=== PATIENT | female | born 1950 | race Caucasian/White ===

== ENCOUNTER 2016-12-05 10:38 | Emergency (ER) | payer OTHER ==
[~2016-12-05] VITALS: Ht 157.5 cm; Wt 80.3 kg
[~2016-12-05 10:38] MED LIST: ACET-1256 PO; ALBU1AER9 INH; ASPI325T45 PO; CARB25TA14 PO; CTP/1 PO; IPRA1AER2 INH; KLN5X PO; LAMO200T38 PO; LISI-725 PO; NRN400 PO; OMEP20TA40 PO; TRAZ100T29 PO; VENL37.593 PO; VENL75CA73 PO; ZOLP5TAB6 PO
[2016-12-05 10:54] VITALS: Ht 157.5 cm; Wt 80.3 kg
[2016-12-05 10:55] VITALS: O2SAT 95
[2016-12-05] MEDS ORDERED: SODIUM CHLORIDE 0.9% 1000ML 1,000 ML IV STA (11:01)
[2016-12-05] MEDS ORDERED: NICO14DI31 TD (11:12)
[2016-12-05] MEDS ORDERED: VENL150C PO (11:12)
[2016-12-05] MEDS ORDERED: LAMO150T32 PO (11:12)
[2016-12-05] MEDS ORDERED: CARB25TA16 PO (11:12)
[2016-12-05] MEDS ORDERED: POTA20TA16 PO (11:12)
[2016-12-05] MEDS ORDERED: ONDA4TAB46 PO (11:12)
[2016-12-05] MEDS ORDERED: LISI40TA PO (11:12)
[2016-12-05] MEDS ORDERED: CLON-460 PO (11:12)
[2016-12-05] MEDS ORDERED: HYDR25TA4 PO (11:12)
[2016-12-05] MEDS ORDERED: PRAV20TA PO (11:12)
[2016-12-05] MEDS ORDERED: TRAZ1TAB52 PO (11:12)
[2016-12-05 11:26] LABS: BASO % 0.2 %; BASO ABS # 0.01 K/uL (0-0.2); COMPLETE YES; EOS % 0.9 %; HEMATOCRIT 40.1 % (37-47); LYMPH % 30.7 %; LYMPH ABS # 1.74 K/uL (1.2-3.4); MEAN CELL VOLUME 93.9 fL (80-100); MEAN CORPUSCULAR HEMOGLOBIN 30.4 pg (25-34); MEAN CORPUSCULAR HGB CONC 32.4 g/dl (32-36); MONO % 6.2 %; PLATELET COUNT 246 K/uL (130-400); RED BLOOD COUNT 4.27 M/uL (4.2-5.4); WHITE BLOOD COUNT 5.66 K/uL (4.8-10.8)
--- NOTE | 2016-12-05 11:35 | EMERGENCY ROOM VISIT NOTE ---
History Report prepared by Freddie: Shena Torrez Under the Supervision of: Dr. Kelly Kerr M.D. First contact with patient: 11:01 Chief Complaint: OVERDOSE (INTENTIONAL) Stated Complaint: MENTAL HEALTH/LETHARGIC History of Present Illness The patient is a 65 year old female who presents to the Emergency Room with complaints of an intentional overdose that occurred just prior to arrival this morning. The patient states that she just found out today that she is being charged with attempted murder of her . She states that she has a history of short term memory and states that she didn't realize that her was in the car. The patient states that she was just trying to kill herself. 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 The patient states that her sister was very combative over the years, but she still didn't want to place her sister in a half-way. The patient states that today she took rubbing alcohol, aspirin, and tazlina juice around 0800. She also took a dull butter knife to her bilateral wrists and neck. The patient denies any vomiting today. She states that she has a current diagnosis of breast cancer, but states that she does not wish to have any treatments. Source of History: patient Onset: prior to arrival Position: other (global) Quality: other (intentional overdose) Associated Symptoms: No vomiting Review of Systems See HPI for pertinent positives & negatives. A total of 10 systems reviewed and were otherwise negative. 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 (11) HTN (hypertension) (12) Hyperlipidemia (13) Hypertensive urgency (14) Lumbago (15) Mixed anxiety and depressive disorder (16) OSTEOPOROSIS NEC (17) Parkinson disease (18) RESTLESS LEGS SYNDROME (19) Severe uncontrolled hypertension (20) Sleep apnea (21) Spinal stenosis Surgical Problems: (1) History of excision of vulvar cancer (2) History of spinal surgery (3) S p biopsy removal of spinal cord lesion (4) S/P excision of lipoma (5) Status post right knee replacement Family History Cerebral hemorrhage SISTER Heart disease FATHER ([place]) Hypertension MOTHER SISTER Kidney disease Social History Smoking Status: Current Every Day Smoker Alcohol Use: none Drug Use: none Marital Status: Housing Status: lives with family Occupation Status: disabled Current/Historical Medications Scheduled Carbidopa/Levodopa (Sinemet Cr 25MG/100MG), 1 TAB PO TID Clonazepam (Clonazepam), 0.5 MG PO BID Clonidine HCl (Clonidine HCl), 0.3 MG PO TID Gabapentin (Gabapentin), 400 MG PO TID Hydrochlorothiazide (Hctz), 25 MG PO QAM Lamotrigine (Lamictal), 150 MG PO BID Lisinopril (Zestril), 40 MG PO DAILY Nicotine (Nicoderm Cq 14MG Patch), 1 PATCH TD DAILY Potassium Ext Rel (Klor-Con), 20 MEQ PO DAILY Pravastatin (Pravachol ), 20 MG PO QPM Trazodone Hcl (Desyrel), 150 MG PO HS Venlafaxine Hcl (Effexor Xr), 150 MG PO QAM Zolpidem Tartrate (Zolpidem Tartrate), 5 MG PO HS Scheduled PRN Albuterol Sulfate (Proair Hfa), 2 PUFF INH QID PRN for SOB/Wheezing Omeprazole (Cvs Omeprazole), 20 MG PO DAILY PRN for nausea Ondansetron Hcl (Zofran), 4 MG PO TID PRN for Nausea Allergies Coded Allergies: Nicotine (Verified Allergy, Intermediate, skin irritation, 08/07/16) BEE STING (Verified Allergy, Unknown, "I PASS OUT.", 08/07/16) Bupropion (Verified Allergy, Unknown, unknown, 08/07/16) Codeine (Verified Allergy, Unknown, unknown - TOLERATES PERCOCET, 08/07/16) Sulfa Antibiotics (Verified Allergy, Unknown, ., 08/07/16) Physical Exam Vital Signs Date Time Temp Pulse Resp B/P Pulse Ox O2 Delivery O2 Flow Rate FiO2 12/05/16 21:07 89 20 147/74 96 Room Air 12/05/16 19:18 98 20 167/73 97 Room Air 12/05/16 17:44 37.0 101 18 160/87 97 Room Air 12/05/16 16:32 85 18 118/84 99 Room Air 12/05/16 16:13 69 18 97 12/05/16 15:59 102/66 12/05/16 15:43 80 17 94 12/05/16 15:13 88 25 94 12/05/16 14:58 143/76 12/05/16 14:47 127/75 12/05/16 14:43 83 24 100 12/05/16 14:22 89 21 133/74 100 Nasal Cannula 2.0 12/05/16 14:16 133/74 12/05/16 14:13 88 24 100 12/05/16 13:59 136/89 12/05/16 13:43 90 24 100 12/05/16 13:13 84 23 100 12/05/16 13:08 79 24 100 12/05/16 13:00 79 12/05/16 12:59 135/84 12/05/16 12:38 80 21 100 12/05/16 12:08 82 18 99 12/05/16 11:59 122/94 12/05/16 11:53 81 20 103/73 100 Nasal Cannula 2.0 12/05/16 11:52 103/73 12/05/16 11:38 86 17 100 12/05/16 11:08 52 25 98 12/05/16 10:55 95 Nasal Cannula 2.0 12/05/16 10:54 36.7 84 20 129/88 89 Room Air 12/05/16 10:54 92 Nasal Cannula 2.0 12/05/16 10:51 85 12/05/16 10:43 129/76 Physical Exam Vital signs reviewed. General: Disheveled, generally well-appearing female, in no significant distress. Responds to verbal stimuli without difficulty. HEENT: No scleral icterus, PERRLA, neck supple. Atraumatic. Cardiovascular: Regular rate and rhythm, no extra sounds. Pulmonary: Clear to auscultation bilaterally, normal work of breathing. Abdomen: Soft, nontender, nondistended, positive bowel sounds. Musculoskeletal: Atraumatic, no peripheral edema. Neurologic: Patient awake alert and oriented x 3, full strength in all 4 extremities. Cranial nerves 2 through 12 grossly intact. Skin: Superficial lacerations to bilateral wrist and anterior neck. Warm, dry, no rash Psych: Positive suicidal ideation, negative homicidal ideation. Medical Decision & Procedures Laboratory Results 12/05/16 11:16 Red Blood Count 4.27, Mean Corpuscular Volume 93.9, Mean Corpuscular Hemoglobin 30.4, Mean Corpuscular Hemoglobin Concent 32.4, Mean Platelet Volume 9.0, Neutrophils (%) (Auto) 62.0, Lymphocytes (%) (Auto) 30.7, Monocytes (%) (Auto) 6.2, Eosinophils (%) (Auto) 0.9, Basophils (%) (Auto) 0.2, Neutrophils # (Auto) 3.51, Lymphocytes # (Auto) 1.74, Monocytes # (Auto) 0.35, Eosinophils # (Auto) 0.05, Basophils # (Auto) 0.01 12/05/16 11:16 Test 12/05/16 00:00 12/05/16 11:16 12/05/16 12:00 12/05/16 12:02 Urine Color YELLOW Urine Appearance CLEAR (CLEAR) Urine pH 7.5 (4.5-7.5) Urine Specific [place] 1.004 (1.000-1.030) Urine Protein NEG (NEG) Urine Glucose (UA) NEG (NEG) Urine Ketones NEG (NEG) Urine Occult Blood NEG (NEG) Urine Nitrite NEG (NEG) Urine Bilirubin NEG (NEG) Urine Urobilinogen NEG (NEG) Urine Leukocyte Esterase NEG (NEG) Urine WBC (Auto) 0 /hpf (0-5) Urine RBC (Auto) 0-4 /hpf (0-4) Urine Hyaline Casts (Auto) 1-5 /lpf (0-5) Urine Epithelial Cells (Auto) 0-5 /lpf (0-5) Urine Bacteria (Auto) NEG (NEG) White Blood Count 5.66 K/uL (4.8-10.8) Red Blood Count 4.27 M/uL (4.2-5.4) Hemoglobin 13.0 g/dL (12.0-16.0) Hematocrit 40.1 % (37-47) Mean Corpuscular Volume 93.9 fL (80-100) Mean Corpuscular Hemoglobin 30.4 pg (25-34) Mean Corpuscular Hemoglobin Concent 32.4 g/dl (32-36) Platelet Count 246 K/uL (130-400) Mean Platelet Volume 9.0 fL (7.4-10.4) Neutrophils (%) (Auto) 62.0 % Lymphocytes (%) (Auto) 30.7 % Monocytes (%) (Auto) 6.2 % Eosinophils (%) (Auto) 0.9 % Basophils (%) (Auto) 0.2 % Neutrophils # (Auto) 3.51 K/uL (1.4-6.5) Lymphocytes # (Auto) 1.74 K/uL (1.2-3.4) Monocytes # (Auto) 0.35 K/uL (0.11-0.59) Eosinophils # (Auto) 0.05 K/uL (0-0.5) Basophils # (Auto) 0.01 K/uL (0-0.2) RDW Standard Deviation 49.6 fL (36.4-46.3) RDW Coefficient of Variation 14.5 % (11.5-14.5) Immature Granulocyte % (Auto) 0.0 % Immature Granulocyte # (Auto) 0.00 K/uL (0.00-0.02) Anion Gap 6.0 mmol/L (3-11) Est Creatinine Clear Calc Drug Dose 37.7 ml/min Estimated GFR () 42.5 Estimated GFR (Non- 36.7 BUN/Creatinine Ratio 6.9 (10-20) Calcium Level 8.8 mg/dl (8.5-10.1) Total Bilirubin 0.2 mg/dl (0.2-1) Direct Bilirubin < 0.1 mg/dl (0-0.2) Aspartate Amino Transf (AST/SGOT) 4 U/L (15-37) Alanine Aminotransferase (ALT/SGPT) 9 U/L (12-78) Alkaline Phosphatase 63 U/L (45-117) Total Protein 7.0 gm/dl (6.4-8.2) Albumin 4.1 gm/dl (3.4-5.0) Salicylates Level 2.0 mg/dl (2.8-20) Acetaminophen Level < 2 ug/ml (10-30) Ethyl Alcohol mg/dL < 3.0 mg/dl (0-3) Urine Osmolality 267 mOms/kg (500-800) Urine Opiates Screen NEG (NEG) Urine Methadone, Qualitative NEG (NEG) Urine Barbiturates NEG (NEG) Urine Phencyclidine (PCP) Level NEG (NEG) Ur Amphetamine/Methamphetamine NEG (NEG) MDMA (Ecstasy) Screen NEG (NEG) Urine Benzodiazepines Screen NEG (NEG) Urine Cocaine Metabolite NEG (NEG) Urine Marijuana (THC) NEG (NEG) Methyl Alcohol Level NEGATIVE <5 MG/DL (NONE Osmolality 324 mOsm/kg (280-300) Test 12/05/16 12:52 12/05/16 15:55 Venous Blood pH 7.39 (7.36-7.41) Venous Blood Partial Pressure CO2 54 mmHg (38.0-50.0) Venous Blood Partial Pressure O2 30 mmHg Venous Blood HCO3 31 mmol/L Venous Blood Oxygen Saturation < 60.0 % Venous Blood Base Excess 5.0 mmol/L Arterial Blood pH 7.43 (7.35-7.45) Arterial Blood Partial Pressure CO2 46 mmHg (35-46) Arterial Blood Partial Pressure O2 64 mmHg (80-95) Arterial Blood HCO3 30 mmol/L (19-24) Arterial Blood Oxygen Saturation 92.3 % (90-95) Arterial Blood Base Excess 4.6 mEq/L (-9-1.8) Arterial Blood Gas Delivery ROOM AIR Miguelito Test POS (POS) Laboratory results per my review. Medications Administered Medications (Trade) Dose Ordered Sig/Jagruti Route Start Time Stop Time Status Last Admin Dose Admin Sodium Chloride (Nss 1000ml) 1,000 ml @ 125 mls/hr Q8H STAT IV 12/05/16 11:01 12/05/16 19:00 DC 12/05/16 11:22 125 MLS/HR Diphtheria/ Pertussis/Tetanus Vacc (Adacel Inj) 0.5 ml ONCE ONCE IM. 12/05/16 14:15 12/05/16 14:17 DC 12/05/16 14:49 0.5 ML Lorazepam (Ativan Tab) 1 mg NOW STAT PO 12/05/16 18:38 12/05/16 18:39 DC 12/05/16 18:38 1 MG Lorazepam (Ativan Tab) 1 mg NOW STAT SL 12/05/16 21:22 12/05/16 21:23 DC 12/05/16 21:26 1 MG ECG Indication: toxicologic Rate (beats per minute): 84 Rhythm: sinus rhythm Findings: nonspecific-ST abn (Lateral), PVC (frequent), other (Likely previous anteiror infarct) ED Course 1101: Ordered Sodium Chloride 1000 ml @ 125 mls/hr IV. 1122: Past medical records reviewed. The patient was evaluated in room A3. A complete history and physical examination was performed. 1415: Ordered Adacel Inj 0.5 ml IM. 1423: I discussed the patients case with Poison Control. 1542: I reevaluated the patient and she is resting comfortably. I believe she can be clear for further evaluation. 1635: I reevaluated the patient and she is going to be evaluated by mental health. 1800: The patient was signed out to Dr. Palacios at change of shift. Pending [facility] evaluation. Medical Decision Differential diagnosis: Etiologies such as mood disorder, infection, hypoglycemia, electrolyte abnormalities, cardiac sources, intracerebral event, toxicologic, neurologic, as well as others were entertained. This pt was evaluated and appeared to be in no distress. Pt was observed in the ED for several hours. Poison control was contacted. I did speak with the speech therapy teacher. She was medically cleared. Pt was awake and speaking clearly. SHe became very anxious and tearful. Pt was medicated with oral ativan. Pt was referred to the [facility] and accepted for inpt management. Secure transport arrangements were made. Pt was signed out to Dr Palacios at the change of shift pending transfer. Consults Time Called: 1413 Consulting Physician: Poison Control Returned Call: [phone] I discussed the patients case with Poison Control. Impression Primary Impression: Suicidal ideation Additional Impressions: Self-mutilation Isopropyl alcohol ingestion Scribe Attestation The scribe's documentation has been prepared under my direction and personally reviewed by me in its entirety. I confirm that the note above accurately reflects all work, treatment, procedures, and medical decision making performed by me. Departure Information Dispostion Still a Patient Referrals No Doctor, Assigned (PCP) Problem Qualifiers
[2016-12-05 11:49] LABS: BLOOD UREA NITROGEN 10 mg/dl (7-18); GLUCOSE 103 mg/dl (70-99)
[2016-12-05 11:50] LABS: ALT/SGPT 9 U/L (12-78); AST/SGOT 4 U/L (15-37); BUN/CREATININE RATIO 6.9 (10-20); CALCIUM 8.8 mg/dl (8.5-10.1); CARBON DIOXIDE 30 mmol/L (21-32); CHLORIDE 104 mmol/L (98-107); POTASSIUM 3.7 mmol/L (3.5-5.1); SODIUM 140 mmol/L (136-145)
[2016-12-05 11:51] LABS: ACETAMINOPHEN < 2 ug/ml (10-30)
[2016-12-05 11:52] LABS: ALKALINE PHOSPHATASE 63 U/L (45-117)
[2016-12-05 12:43] LABS: URINE APPEARANCE CLEAR (CLEAR); URINE BILIRUBIN NEG (NEG); URINE COLOR YELLOW; URINE EPITHELIAL CELL AUTO 0-5 /lpf (0-5); URINE NITRITE NEG (NEG); URINE PH 7.5 (4.5-7.5); URINE SPECIFIC GRAVITY 1.004 (1.000-1.030); UROBILINOGEN NEG (NEG); ZZURINE CULT IF INDIC CATH NO
[2016-12-05 12:45] LABS: MANUAL MICROSCOPIC REQUIRED? NO; REVIEW REQ? NO
[2016-12-05 13:09] LABS: BENZODIAZEPINE, URINE NEG (NEG); COCAINE,URINE NEG (NEG); PHENCYCLIDINE, URINE NEG (NEG)
[2016-12-05 13:15] LABS: VEN BLD GAS O2 SATURATION < 60.0 %; VENOUS BLOOD GAS PCO2 54 mmHg (38.0-50.0); VENOUS BLOOD GAS PO2 30 mmHg
[2016-12-05] MEDS ORDERED: DIPHTHERIA/TETANUS/PERTUSSIS 0.5 ML SYR/VIAL IM. ONE (14:15)
[2016-12-05 16:09] LABS: ARTERIAL BLD GAS O2 SATURATION 92.3 % (90-95); ARTERIAL BLOOD GAS HCO3 30 mmol/L (19-24); ARTERIAL BLOOD GAS PO2 64 mmHg (80-95); ARTERIAL BLOOD GAS pH 7.43 (7.35-7.45)
[2016-12-05 16:10] LABS: ALLEN TEST POS (POS); ARTERIAL BLOOD GAS BASE EXCESS 4.6 mEq/L (-9-1.8); O2 ADMINISTRATION ROOM AIR
[2016-12-05 17:44] VITALS: TEMP 37
[2016-12-05] MEDS ORDERED: LORAZEPAM 1 MG TAB PO STA (18:38)
[2016-12-05] MEDS ORDERED: NICOTINE 14 MG/24 HR TDSY ONE (18:57)
[2016-12-05 21:07] VITALS: BP 147/74; PULSE 89; O2SAT 96
[2016-12-05] MEDS ORDERED: LORAZEPAM 1 MG TAB SL STA (21:22)
--- NOTE | 2016-12-05 21:24 | EMERGENCY ROOM VISIT NOTE ---
ED Visit Note The patient was taken in signout from Dr. Kerr at the change of shift. She was accepted for psychiatric transfer. Prior to transfer the patient was very anxious. She was given 1 mg sublingual Ativan.
[2016-12-06] MEDS ORDERED: NICOTINE 14 MG/24 HR TDSY TD SCH ×2 (09:00)
== END 2016-12-05 21:14 ==
LOC: EDBD 10:38 → C.EDA 10:48
DX: T39.012A Poisoning by aspirin, intentional self-harm, initial encounter (principal); T51.92XA Toxic effect of unspecified alcohol, intentional self-harm, initial encounter; S60.911A Unspecified superficial injury of right wrist, initial encounter; S60.912A Unspecified superficial injury of left wrist, initial encounter; X78.1XXA Intentional self-harm by knife, initial encounter; F41.9 Anxiety disorder, unspecified; Z23 Encounter for immunization; R00.0 Tachycardia, unspecified; I10 Essential (primary) hypertension; E78.5 Hyperlipidemia, unspecified; J44.9 Chronic obstructive pulmonary disease, unspecified; K21.9 Gastro-esophageal reflux disease without esophagitis; G20 Parkinson's disease; M81.0 Age-related osteoporosis without current pathological fracture; G47.30 Sleep apnea, unspecified; F32.9 Major depressive disorder, single episode, unspecified; G25.81 Restless legs syndrome; J43.9 Emphysema, unspecified; F17.200 Nicotine dependence, unspecified, uncomplicated; Z96.651 Presence of right artificial knee joint; Z98.890 Other specified postprocedural states; Z79.899 Other long term (current) drug therapy; Z88.2 Allergy status to sulfonamides; Z88.5 Allergy status to narcotic agent; Z88.8 Allergy status to other drugs, medicaments and biological substances; Z91.030 Bee allergy status; Z82.49 Family history of ischemic heart disease and other diseases of the circulatory system; Z84.1 Family history of disorders of kidney and ureter

== ENCOUNTER 2017-06-01 15:49 | Emergency (ER) | payer OTHER ==
[~2017-06-01] VITALS: Ht 170.2 cm; Wt 70.0 kg
[~2017-06-01 15:49] MED LIST changes: -ACET-1256 PO; -ASPI325T45 PO; -CARB25TA14 PO; +CARB25TA16 PO; +CLON-460 PO; -CTP/1 PO; +HYDR25TA4 PO; -IPRA1AER2 INH; +LAMO150T32 PO; -LAMO200T38 PO; -LISI-725 PO; +LISI40TA PO; +NICO14DI31 TD; +ONDA4TAB46 PO; +POTA20TA16 PO; +PRAV20TA PO; -TRAZ100T29 PO; +TRAZ1TAB52 PO; +VENL150C PO; -VENL37.593 PO; -VENL75CA73 PO
[2017-06-01 15:59] VITALS: TEMP 36.9; Ht 170.2 cm; Wt 70.0 kg
[2017-06-01] MEDS ORDERED: SODIUM CHLORIDE 0.9% 1000ML 250 ML IV STA (16:02)
[2017-06-01] MEDS ORDERED: SODIUM CHLORIDE 0.9% 1000ML 1,000 ML IV STA (16:02)
[2017-06-01] MEDS ORDERED: MoRPHine SULFATE 4 MG/ML 1 ML CARP IV STA (16:02)
[2017-06-01] MEDS ORDERED: ONDANSETRON INJ 2 MG/ML 2 ML VIAL IV STA (16:02)
--- NOTE | 2017-06-01 16:05 | EMERGENCY ROOM VISIT NOTE ---
History Report prepared by Freddie: Aldo Singh Under the Supervision of: Dr. Subhash Finney M.D. First contact with patient: 15:56 Chief Complaint: FALL Stated Complaint: FALL, HIP& JAW PAIN, LACERATION TO KNEE & CHIN History of Present Illness The patient is a 66 year old female who presents to the Emergency Room with complaints of a fall that happened RECORDIST CHIEF. She was standing on when she bent down and lost her balance. She fell off of the porch and landed on the ground. The porch was about 5 steps high. She is experiencing jaw pain and hip pain. She denies any chest pain, shortness of breath, or abdominal pain. She has a past medical history of previous brain aneurisms. Before the fall, she notes that she had drank 2 shots of vodka. Source of History: patient Onset: RECORDIST CHIEF Position: other (Global) Symptom Intensity: moderate Quality: other (Fall) Timing: constant Modifying Factors (Worsening): movement Associated Symptoms: No chest pain, No SOB, No abdominal pain Note: She has hip pain and jaw pain. Review of Systems See HPI for pertinent positives & negatives. A total of 10 systems reviewed and were otherwise negative. 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 Nurse's notes were reviewed and I agree with. Family History Cerebral hemorrhage SISTER Heart disease FATHER ([place]) Hypertension MOTHER SISTER Kidney disease Social History Smoking Status: Current Every Day Smoker Alcohol Use: none Drug Use: none Marital Status: Housing Status: lives with family Occupation Status: disabled Current/Historical Medications Scheduled Amlodipine (Norvasc), 5 MG PO DAILY Atorvastatin (Lipitor), 10 MG PO DAILY Clonazepam (Clonazepam), 1 MG PO DAILY Clonidine HCl (Clonidine HCl), 0.3 MG PO BID Escitalopram Oxalate (Lexapro), 10 MG PO DAILY Gabapentin (Gabapentin), 400 MG PO TID Hydrochlorothiazide (Hctz), 25 MG PO QAM Lisinopril (Lisinopril), 20 MG PO BID Omeprazole (Cvs Omeprazole), 20 MG PO DAILY Potassium Ext Rel (Klor-Con), 20 MEQ PO DAILY Trazodone HCl (Trazodone HCl), 100 MG PO BID Allergies Coded Allergies: Nicotine (Verified Allergy, Intermediate, skin irritation, 08/07/16) BEE STING (Verified Allergy, Unknown, "I PASS OUT.", 08/07/16) Bupropion (Verified Allergy, Unknown, unknown, 08/07/16) Codeine (Verified Allergy, Unknown, unknown - TOLERATES PERCOCET, 08/07/16) Sulfa Antibiotics (Verified Allergy, Unknown, ., 08/07/16) Physical Exam Vital Signs Date Time Temp Pulse Resp B/P (MAP) Pulse Ox O2 Delivery O2 Flow Rate FiO2 06/01/17 19:14 51 17 06/01/17 18:44 53 25 110/59 06/01/17 16:29 95 Nasal Cannula 2.0 06/01/17 16:24 57 06/01/17 16:00 94 Room Air 06/01/17 15:59 36.9 57 24 114/67 94 Room Air Physical Exam General: Mildly intoxicated older female, breathing comfortably on room air. Normal speech. Wearing a cervical collar. Answers questions appropriately. HEENT: Normal cephalic. Laceration to the chin. Pupils are equal round and reactive to light. Extraocular movements are intact. Oropharynx is pink with moist mucous membranes. No swelling of the mouth lips or tongue. Neck: Supple with a midline trachea. No meningeal signs or stiffness, no JVD or bruits. No Stridor. Chest: Clear to auscultation bilaterally. No wheezes or rhonchi. No increased work of breathing. Heart: regular rate and rhythm. Abdomen: Soft nontender, nondistended without rebound guarding or rigidity. Extremities: No cyanosis clubbing or edema. No calf tenderness or assymetry. Laceration below the left knee. Spine/Back. Non tender to palpation. No CVA tenderness Skin: Good turgor without rashes. Neurologic exam: Cranial nerves two through 12 are intact. Motor and sensation are intact and symmetrical throughout. GCS 15. Medical Decision & Procedures ER Provider Diagnostic Interpretation: Radiology results as stated below per my review and radiologist interpretation: ADDENDUM Findings: Slightly impacted/angled fracture right mandibular condyle. Electronically signed by: Dwayne Becker M.D. 06/01/2017 4:47 PM Dictated Date/Time: 06/01/2017 4:46 PM ORIGINAL REPORT FACIAL BONES-MXILLOFAC WITHOUT CT DOSE: 1043.60 mGy.cm HISTORY: Trauma eval for trauma TECHNIQUE: Multiaxial CT images of the maxillofacial region were performed and reformatted in the coronal plane without the use of contrast. COMPARISON: None. FINDINGS: Slightly impacted/ankle fracture right mandibular condyle. No evidence of dislocation. All remaining osseous structures are unremarkable. Sinuses show chronic sclerosis of the posterior mastoids of the no additional abnormalities appreciated. Final sinuses are clear. The orbital margins are intact. All remaining structures the mandible and maxilla are unremarkable. IMPRESSION: 1. Fracture right mandibular condyle 2. The Remainder of the study is negative The above report was generated using voice recognition software. It may contain grammatical, syntax or spelling errors. Electronically signed by: Dwayne Becker M.D. 06/01/2017 4:36 PM Dictated Date/Time: 06/01/2017 4:34 PM HEAD WITHOUT CONTRAST (CT) CT DOSE: HISTORY: Trauma eval for trauma TECHNIQUE: Multiaxial CT images of the head were performed without the use of intravenous contrast. Comparison: None. Findings: The paranasal sinuses and mastoid air cells are clear. The calvarium and skull base are intact. The ventricles and sulci are within normal limits. There is no mass, hematoma, midline shift, or acute infarct. Impression: No acute intracranial abnormality. The above report was generated using voice recognition software. It may contain grammatical, syntax or spelling errors. Electronically signed by: Dwayne Becker M.D. 06/01/2017 4:33 PM Dictated Date/Time: 06/01/2017 4:33 PM (CHEST) THORAX WITH CT DOSE: 931.97 mGy.cm HISTORY: Trauma eval for trauma TECHNIQUE: Multiaxial CT images of the chest were performed following the intravenous administration of contrast. COMPARISON: None. FINDINGS: The lungs are clear. The mediastinal vascular structures are within normal limits. No mediastinal or hilar lymphadenopathy. No pleural effusion or pneumothorax. Limited views of the upper abdomen demonstrate a normal liver and spleen. Moderate degenerative change thoracic spine IMPRESSION: No significant abnormality identified within the chest. Moderate degenerative change thoracic spine The above report was generated using voice recognition software. It may contain grammatical, syntax or spelling errors. Electronically signed by: Dwayne Becker M.D. 06/01/2017 4:42 PM Dictated Date/Time: 06/01/2017 4:40 PM CERVICAL SPINE W/O CT DOSE: HISTORY: Trauma eval for trauma TECHNIQUE: Multiaxial CT images of the cervical spine were performed and reformatted in the sagittal and coronal plane without the use of contrast. COMPARISON: None. FINDINGS: No fractures. No subluxation. Prevertebral soft tissues and the C1-C2 interval are intact. No pneumothorax. Moderate degenerative disc change from C5 through C7 IMPRESSION: No fractures within the cervical spine. Moderate degenerative change The above report was generated using voice recognition software. It may contain grammatical, syntax or spelling errors. Electronically signed by: Dwayne Becker M.D. 06/01/2017 4:32 PM Dictated Date/Time: 06/01/2017 4:31 PM ABD/PELVIS IV CONTRAST ONLY CT DOSE: HISTORY: Trauma eval for trauma TECHNIQUE: Multiaxial CT images of the abdomen and pelvis were performed following the use of intravenous contrast. COMPARISON STUDY: 08/07/2016 FINDINGS: Lung bases are clear. Mild fatty infiltration of liver. All major organ systems enhance uniformly. 3 mm nonobstructing right renal cortical calcification. No abnormal perinephric collection. Bowel pattern is considered nonobstructive. Bladder is midline. There is no significant free fluid within the pelvic cul-de-sac. There are postoperative changes of the lumbar spine consistent with laminectomy and fusion there is no evidence for compression deformity. IMPRESSION: No significant abnormality identified within the abdomen or pelvis. The above report was generated using voice recognition software. It may contain grammatical, syntax or spelling errors. Electronically signed by: Dwayne Becker M.D. 06/01/2017 4:45 PM Dictated Date/Time: 06/01/2017 4:42 PM LEFT KNEE 1 OR 2 VIEWS ROUTINE CLINICAL HISTORY: eval for trauma pain COMPARISON: None. DISCUSSION: Moderate degenerative change all major joint compartment. Soft tissue laceration anterior to the knee. No acute bony abnormality. IMPRESSION: Soft tissue laceration. No acute bony abnormality. Moderate degenerative change. The above report was generated using voice recognition software. It may contain grammatical, syntax or spelling errors. Electronically signed by: Dwayne Becker M.D. 06/01/2017 5:32 PM Dictated Date/Time: 06/01/2017 5:31 PM LEFT HAND MIN 3 VIEWS ROUTINE CLINICAL HISTORY: eval for trauma trauma COMPARISON: 08/07/2016 DISCUSSION: Small old avulsion from the base of the first metacarpal. Severe degenerative change first carpometacarpal joint. No well-defined acute bony abnormality. Moderate degenerative change throughout. There is no evidence for soft tissue swelling. IMPRESSION: Considerable degenerative change. No acute bony abnormality. The above report was generated using voice recognition software. It may contain grammatical, syntax or spelling errors. Electronically signed by: Dwayne Becker M.D. 06/01/2017 5:31 PM Dictated Date/Time: 06/01/2017 5:30 PM Laboratory Results 06/01/17 15:50 Red Blood Count 4.21, Mean Corpuscular Volume 91.4, Mean Corpuscular Hemoglobin 31.6, Mean Corpuscular Hemoglobin Concent 34.5, Mean Platelet Volume 9.8, Neutrophils (%) (Auto) 51.6, Lymphocytes (%) (Auto) 41.5, Monocytes (%) (Auto) 5.6, Eosinophils (%) (Auto) 1.0, Basophils (%) (Auto) 0.3, Neutrophils # (Auto) 3.11, Lymphocytes # (Auto) 2.50, Monocytes # (Auto) 0.34, Eosinophils # (Auto) 0.06, Basophils # (Auto) 0.02 06/01/17 15:50 Test 06/01/17 15:50 06/01/17 16:09 06/01/17 16:26 White Blood Count 6.03 K/uL (4.8-10.8) Red Blood Count 4.21 M/uL (4.2-5.4) Hemoglobin 13.3 g/dL (12.0-16.0) Hematocrit 38.5 % (37-47) Mean Corpuscular Volume 91.4 fL (80-100) Mean Corpuscular Hemoglobin 31.6 pg (25-34) Mean Corpuscular Hemoglobin Concent 34.5 g/dl (32-36) Platelet Count 204 K/uL (130-400) Mean Platelet Volume 9.8 fL (7.4-10.4) Neutrophils (%) (Auto) 51.6 % Lymphocytes (%) (Auto) 41.5 % Monocytes (%) (Auto) 5.6 % Eosinophils (%) (Auto) 1.0 % Basophils (%) (Auto) 0.3 % Neutrophils # (Auto) 3.11 K/uL (1.4-6.5) Lymphocytes # (Auto) 2.50 K/uL (1.2-3.4) Monocytes # (Auto) 0.34 K/uL (0.11-0.59) Eosinophils # (Auto) 0.06 K/uL (0-0.5) Basophils # (Auto) 0.02 K/uL (0-0.2) RDW Standard Deviation 46.5 fL (36.4-46.3) RDW Coefficient of Variation 14.1 % (11.5-14.5) Immature Granulocyte % (Auto) 0.0 % Immature Granulocyte # (Auto) 0.00 K/uL (0.00-0.02) Est Creatinine Clear Calc Drug Dose 90.6 ml/min Estimated GFR () 111.0 Estimated GFR (Non- 95.8 BUN/Creatinine Ratio 30.5 (10-20) Calcium Level 8.7 mg/dl (8.5-10.1) Total Bilirubin 0.4 mg/dl (0.2-1) Direct Bilirubin 0.1 mg/dl (0-0.2) Aspartate Amino Transf (AST/SGOT) 9 U/L (15-37) Alanine Aminotransferase (ALT/SGPT) 9 U/L (12-78) Alkaline Phosphatase 64 U/L (45-117) Total Protein 6.5 gm/dl (6.4-8.2) Albumin 3.7 gm/dl (3.4-5.0) Lipase 66 U/L (73-393) Bedside Hemoglobin 13.3 g/dl (12.0-16.0) Bedside Hematocrit 39 % (37-47) Bedside Sodium 139 mEq/L (135-144) Bedside Potassium 3.4 mEq/L (3.3-5.0) Bedside Chloride 100 mEq/L (101-112) Bedside Total CO2 24 mEq/l (24-31) Anion Gap 19.0 mmol/L (16-25) Bedside Blood Urea Nitrogen 19 mg/dl (7-18) Bedside Creatinine 0.8 mg/dl (0.6-1.3) Bedside Glucose (other) 90 mg/dl (70-99) Bedside Ionized Calcium (Ad) 1.14 mmol/l (1.12-1.32) Ethyl Alcohol mg/dL 117.0 mg/dl (0-3) Laboratory studies as stated above per my review. Medications Administered Medications (Trade) Dose Ordered Sig/Jagruti Route Start Time Stop Time Status Last Admin Dose Admin Ondansetron HCl (Zofran Inj) 4 mg NOW STAT IV 06/01/17 16:02 06/01/17 16:03 DC 06/01/17 16:22 4 MG Morphine Sulfate (MoRPHine SULFATE INJ) 4 mg NOW STAT IV 06/01/17 16:02 06/01/17 16:03 DC 06/01/17 16:22 4 MG Sodium Chloride 250 ml @ 999 mls/hr Q16M STAT IV 06/01/17 16:02 06/01/17 16:17 DC 06/01/17 16:02 999 MLS/HR Sodium Chloride 1,000 ml @ 100 mls/hr Q10H STAT IV 06/01/17 16:02 06/02/17 02:01 06/01/17 16:25 100 MLS/HR Cefazolin Sodium (Ancef 1000mg/55 ml D5W) 1,000 mg NOW STAT IV 06/01/17 17:24 06/01/17 17:26 DC 06/01/17 17:50 1,000 MG Diphtheria/ Pertussis/Tetanus Vacc (Adacel Inj) 0.5 ml ONCE ONCE IM. 06/01/17 19:15 06/01/17 19:16 DC 06/01/17 19:21 0.5 ML Morphine Sulfate (MoRPHine SULFATE INJ) 2 mg NOW STAT IV 06/01/17 19:06 06/01/17 19:07 DC 06/01/17 19:20 2 MG ECG Indication: other (Trauma) Rate (beats per minute): 64 Rhythm: normal sinus Findings: no acute ischemic change, other (Poor baseline, poor r wave progression) Comparison ECG Date: 05 Dec 2016 Change: PVCs have resolved. ED Course 1556: Past medical records reviewed. The patient was evaluated in room C10, and a complete history and physical examination were performed. 1602: Ordered Sodium Chloride 1000 ml @ 100 mls/hr IV, Sodium Chloride 250 ml @ 999 mls/hr IV, Morphine Sulfate 4 mg IV, Zofran Inj 4 mg IV 1651: The patient is awake and back from radiology. She is still in pain. I removed the c-collar. 1724: Ordered Cefazolin Sodium 1000 mg IV. She would like to be transferred to [facility] for further management. 1728: I spoke with Dr. Tiago Ceja Hospitalist, at this time. He agrees with the patient's transfer. 1731: I spoke with Dr. Carmina Carrillo at this time. He accepted the patient for further management and care. She will be transferred to their facility. 1745: The patient is comfortable with the plan. 1904: The patient is still having jaw pain. I will order her more pain medication while she waits for her transfer. 1906: Ordered Morphine Sulfate 2 mg IV 1915: Ordered Diphtheria/ Pertussis/ Tetanus Vacc 0.5 ml IM Medical Decision Differentials include, but are not limited to; head injury, traumatic injuries, c-spine injury, laceration, orthopedic injuries, intoxication, and electrolyte or metabolic abnormality. Medication Reconciliation: I attest that I have personally reviewed the patient' s current medication list. Blood pressure Screening: Patient was found to have normal blood pressure on screening and does not require follow-up. This patient comes in as described above. She was flagged as a priority patient in the nurses came to get me to see her promptly upon her arrival. She apparently fell off a porch she has been drinking as well. The nurses were concerned about head and traumatic injuries. When I arrived to the room, she is complaining of pain. she is in a collar.. She has a laceration to her chin she denies chest pain, shortness of breath or abdominal pain. She has a large laceration below the left knee with the exposed patellar tendon. It may also go into the joint potentially.. She tells me she's been okay with morphine. She did receive morphine 4 mg IV and Zofran 4 mg IV and was much more comfortable. IV access was established with 2 antecubital IVs large-bore. She' s been normotensive upon arrival. We did emergently send her back to CAT scan to get a hand trauma scans including her face as well. CAT scans were obtained and show a jaw fracture on the right she has a laceration on her chin as well. The jaw fracture could be open. She was given Ancef 1 g IV. The nurse had documented her as a Reading Coma Score 11 initially seems to be clearing some this may be alcohol but she certainly she did hit her head. We do not have any orofacial surgeon on-call at the hospital today plus with her head trauma on him multiple potential other injuries, I do think she needs to go trauma center and she agrees. She has had hip pain other x-rays of and CAT scan are okay so far. She does have a large laceration to her knee which may need to be explored. Moist sterile dressings were applied. I have discussed case with Dr. Grewal. The patient will be transferred to [facility] for further treatment and evaluation. The patient did receive Adacel IM for tetanus booster here. She also received additional morphine. Consults Time Called: 1726 Consulting Physician: Dr. Tiago Fisher [facility] Returned Call: 1729 We discussed the patient's case. He agrees that the patient should be transferred for further management. Additional Consults: Time Called: 1729 Consulted Physician: Dr. Carmina Fisher [facility] Returned Call: 1735 Additional Comments: He accepted the patient for further management and care. The patient will be transferred there. Impression Primary Impression: Head injury Additional Impressions: Jaw fracture Alcohol intoxication Laceration of left knee Contusion of left hand Contusion of left hip Critical Care Due to the multisystem trauma needed for multiple medications and x-rays and consultations. I have personally spent greater than 30 minutes of critical care time in the direct management of this patient. This includes bedside care , interpretation of diagnostic studies, and testing, discussion with consultants , patient, and family members, and other required patient management activities. This 30 minutes is in excess of all separately billable procedures. Scribe Attestation The scribe's documentation has been prepared under my direction and personally reviewed by me in its entirety. I confirm that the note above accurately reflects all work, treatment, procedures, and medical decision making performed by me. Departure Information Dispostion Transfer Acute Care Facility Referrals No Doctor, Assigned (PCP) Patient Instructions My [facility] Problem Qualifiers
[2017-06-01 16:16] LABS: BASO % 0.3 %; BASO ABS # 0.02 K/uL (0-0.2); COMPLETE YES; HEMATOCRIT 38.5 % (37-47); LYMPH % 41.5 %; MEAN CELL VOLUME 91.4 fL (80-100); MEAN CORPUSCULAR HEMOGLOBIN 31.6 pg (25-34); MEAN CORPUSCULAR HGB CONC 34.5 g/dl (32-36); MEAN PLATELET VOLUME 9.8 fL (7.4-10.4); MONO % 5.6 %; NEUT % 51.6 %; PLATELET COUNT 204 K/uL (130-400); RED BLOOD COUNT 4.21 M/uL (4.2-5.4); WHITE BLOOD COUNT 6.03 K/uL (4.8-10.8)
[2017-06-01 16:21] LABS: ISTAT CREATININE 0.8 mg/dl (0.6-1.3); ISTAT HEMOGLOBIN 13.3 g/dl (12.0-16.0); ISTAT IONIZED CALCIUM 1.14 mmol/l (1.12-1.32)
[2017-06-01 16:29] VITALS: O2SAT 95
[2017-06-01] MEDS ORDERED: OPTIRAY 320 IV PRN (16:30)
--- NOTE | 2017-06-01 16:34 | DIAGNOSTIC IMAGING REPORT ---
CERVICAL SPINE W/O CT DOSE: HISTORY: Trauma eval for trauma TECHNIQUE: Multiaxial CT images of the cervical spine were performed and reformatted in the sagittal and coronal plane without the use of contrast. COMPARISON: None. FINDINGS: No fractures. No subluxation. Prevertebral soft tissues and the C1-C2 interval are intact. No pneumothorax. Moderate degenerative disc change from C5 through C7 IMPRESSION: No fractures within the cervical spine. Moderate degenerative change The above report was generated using voice recognition software. It may contain grammatical, syntax or spelling errors. Electronically signed by: Dwayne Becker M.D. 06/01/2017 4:32 PM Dictated Date/Time: 06/01/2017 4:31 PM
[2017-06-01 16:35] LABS: BUN/CREATININE RATIO 30.5 (10-20); CALCIUM 8.7 mg/dl (8.5-10.1); CREATININE 0.61 mg/dl (0.60-1.20); POTASSIUM 3.4 mmol/L (3.5-5.1)
--- NOTE | 2017-06-01 16:35 | DIAGNOSTIC IMAGING REPORT ---
HEAD WITHOUT CONTRAST (CT) CT DOSE: HISTORY: Trauma eval for trauma TECHNIQUE: Multiaxial CT images of the head were performed without the use of intravenous contrast. Comparison: None. Findings: The paranasal sinuses and mastoid air cells are clear. The calvarium and skull base are intact. The ventricles and sulci are within normal limits. There is no mass, hematoma, midline shift, or acute infarct. Impression: No acute intracranial abnormality. The above report was generated using voice recognition software. It may contain grammatical, syntax or spelling errors. Electronically signed by: Dwayne Becker M.D. 06/01/2017 4:33 PM Dictated Date/Time: 06/01/2017 4:33 PM
--- NOTE | 2017-06-01 16:38 | DIAGNOSTIC IMAGING REPORT ---
ADDENDUM Findings: Slightly impacted/angled fracture right mandibular condyle. Electronically signed by: Dwayne Becker M.D. 06/01/2017 4:47 PM Dictated Date/Time: 06/01/2017 4:46 PM ORIGINAL REPORT FACIAL BONES-MXILLOFAC WITHOUT CT DOSE: 1043.60 mGy.cm HISTORY: Trauma eval for trauma TECHNIQUE: Multiaxial CT images of the maxillofacial region were performed and reformatted in the coronal plane without the use of contrast. COMPARISON: None. FINDINGS: Slightly impacted/ankle fracture right mandibular condyle. No evidence of dislocation. All remaining osseous structures are unremarkable. Sinuses show chronic sclerosis of the posterior mastoids of the no additional abnormalities appreciated. Final sinuses are clear. The orbital margins are intact. All remaining structures the mandible and maxilla are unremarkable. IMPRESSION: 1. Fracture right mandibular condyle 2. The Remainder of the study is negative The above report was generated using voice recognition software. It may contain grammatical, syntax or spelling errors. Electronically signed by: Dwayne Becker M.D. 06/01/2017 4:36 PM Dictated Date/Time: 06/01/2017 4:34 PM
--- NOTE | 2017-06-01 16:43 | DIAGNOSTIC IMAGING REPORT ---
(CHEST) THORAX WITH CT DOSE: 931.97 mGy.cm HISTORY: Trauma eval for trauma TECHNIQUE: Multiaxial CT images of the chest were performed following the intravenous administration of contrast. COMPARISON: None. FINDINGS: The lungs are clear. The mediastinal vascular structures are within normal limits. No mediastinal or hilar lymphadenopathy. No pleural effusion or pneumothorax. Limited views of the upper abdomen demonstrate a normal liver and spleen. Moderate degenerative change thoracic spine IMPRESSION: No significant abnormality identified within the chest. Moderate degenerative change thoracic spine The above report was generated using voice recognition software. It may contain grammatical, syntax or spelling errors. Electronically signed by: Dwayne Becker M.D. 06/01/2017 4:42 PM Dictated Date/Time: 06/01/2017 4:40 PM
--- NOTE | 2017-06-01 16:46 | DIAGNOSTIC IMAGING REPORT ---
ABD/PELVIS IV CONTRAST ONLY CT DOSE: HISTORY: Trauma eval for trauma TECHNIQUE: Multiaxial CT images of the abdomen and pelvis were performed following the use of intravenous contrast. COMPARISON STUDY: 08/07/2016 FINDINGS: Lung bases are clear. Mild fatty infiltration of liver. All major organ systems enhance uniformly. 3 mm nonobstructing right renal cortical calcification. No abnormal perinephric collection. Bowel pattern is considered nonobstructive. Bladder is midline. There is no significant free fluid within the pelvic cul-de-sac. There are postoperative changes of the lumbar spine consistent with laminectomy and fusion there is no evidence for compression deformity. IMPRESSION: No significant abnormality identified within the abdomen or pelvis. The above report was generated using voice recognition software. It may contain grammatical, syntax or spelling errors. Electronically signed by: Dwayne Becker M.D. 06/01/2017 4:45 PM Dictated Date/Time: 06/01/2017 4:42 PM
[2017-06-01] MEDS ORDERED: ATOR10TA88 PO (17:03)
[2017-06-01] MEDS ORDERED: KLN1X PO (17:03)
[2017-06-01] MEDS ORDERED: DSY100 PO (17:03)
[2017-06-01] MEDS ORDERED: LSN20 PO (17:03)
[2017-06-01] MEDS ORDERED: AMLO-110 PO (17:03)
[2017-06-01] MEDS ORDERED: ESCI1TAB9 PO (17:03)
[2017-06-01] MEDS ORDERED: CEFAZOLIN SOD 1000MG/55 ML D5W IV STA (17:24)
--- NOTE | 2017-06-01 17:33 | DIAGNOSTIC IMAGING REPORT ---
LEFT HAND MIN 3 VIEWS ROUTINE CLINICAL HISTORY: eval for trauma trauma COMPARISON: 08/07/2016 DISCUSSION: Small old avulsion from the base of the first metacarpal. Severe degenerative change first carpometacarpal joint. No well-defined acute bony abnormality. Moderate degenerative change throughout. There is no evidence for soft tissue swelling. IMPRESSION: Considerable degenerative change. No acute bony abnormality. The above report was generated using voice recognition software. It may contain grammatical, syntax or spelling errors. Electronically signed by: Dwayne Becker M.D. 06/01/2017 5:31 PM Dictated Date/Time: 06/01/2017 5:30 PM
--- NOTE | 2017-06-01 17:34 | DIAGNOSTIC IMAGING REPORT ---
LEFT KNEE 1 OR 2 VIEWS ROUTINE CLINICAL HISTORY: eval for trauma pain COMPARISON: None. DISCUSSION: Moderate degenerative change all major joint compartment. Soft tissue laceration anterior to the knee. No acute bony abnormality. IMPRESSION: Soft tissue laceration. No acute bony abnormality. Moderate degenerative change. The above report was generated using voice recognition software. It may contain grammatical, syntax or spelling errors. Electronically signed by: Dwayne Becker M.D. 06/01/2017 5:32 PM Dictated Date/Time: 06/01/2017 5:31 PM
[2017-06-01] MEDS ORDERED: MoRPHine SULFATE 2 MG/ML CARP IV STA (19:06)
[2017-06-01] MEDS ORDERED: DIPHTHERIA/TETANUS/PERTUSSIS 0.5 ML SYR/VIAL IM. ONE (19:15)
[2017-06-01 20:23] VITALS: BP 120/68; PULSE 55; O2SAT 99
== END 2017-06-01 20:24 | disposition short-term general hospital (02) ==
LOC: C.EDC 15:49 → EDBD 15:49 → C.EDC 20:24
DX: S09.90XA Unspecified injury of head, initial encounter (principal); S02.609A Fracture of mandible, unspecified, initial encounter for closed fracture; S81.012A Laceration without foreign body, left knee, initial encounter; S60.222A Contusion of left hand, initial encounter; S70.02XA Contusion of left hip, initial encounter; F10.920 Alcohol use, unspecified with intoxication, uncomplicated; W17.89XA Other fall from one level to another, initial encounter; Y92.018 Other place in single-family (private) house as the place of occurrence of the external cause; J44.9 Chronic obstructive pulmonary disease, unspecified; F32.9 Major depressive disorder, single episode, unspecified; M19.90 Unspecified osteoarthritis, unspecified site; K21.9 Gastro-esophageal reflux disease without esophagitis; I10 Essential (primary) hypertension; E78.5 Hyperlipidemia, unspecified; M81.0 Age-related osteoporosis without current pathological fracture; G20 Parkinson's disease; G25.81 Restless legs syndrome; G47.30 Sleep apnea, unspecified; M48.00 Spinal stenosis, site unspecified; Z82.49 Family history of ischemic heart disease and other diseases of the circulatory system; Z84.1 Family history of disorders of kidney and ureter; F17.210 Nicotine dependence, cigarettes, uncomplicated; Z79.899 Other long term (current) drug therapy

== ENCOUNTER 2017-10-21 02:00 | Emergency (ER) | payer OTHER ==
[~2017-10-21] VITALS: Ht 172.7 cm; Wt 79.1 kg
[~2017-10-21 02:00] MED LIST changes: -ALBU1AER9 INH; +AMLO-110 PO; +ATOR10TA82 PO; -CARB25TA16 PO; +DSY100 PO; +ESCI1TAB9 PO; +KLN1X PO; -KLN5X PO; -LAMO150T32 PO; -LISI40TA PO; +LSN20 PO; -NICO14DI31 TD; -ONDA4TAB46 PO; -PRAV20TA PO; -TRAZ1TAB52 PO; -VENL150C PO; -ZOLP5TAB6 PO
[2017-10-21 02:08] VITALS: TEMP 36.5; Ht 172.7 cm; Wt 79.1 kg
[2017-10-21 02:21] LABS: BASO % 0.4 %; BASO ABS # 0.02 K/uL (0-0.2); COMPLETE YES; EOS % 1.5 %; HEMATOCRIT 37.6 % (37-47); LYMPH % 36.4 %; LYMPH ABS # 1.92 K/uL (1.2-3.4); MEAN CELL VOLUME 94.7 fL (80-100); MEAN CORPUSCULAR HGB CONC 32.7 g/dl (32-36); MONO % 8.2 %; NEUT % 53.5 %; PLATELET COUNT 205 K/uL (130-400); RED BLOOD COUNT 3.97 M/uL (4.2-5.4); WHITE BLOOD COUNT 5.27 K/uL (4.8-10.8)
--- NOTE | 2017-10-21 02:23 | EMERGENCY ROOM VISIT NOTE ---
History Report prepared by Freddie: Cierra Quan Under the Supervision of: Dr. Shoaib Guerrero D.O. First contact with patient: 02:05 Chief Complaint: ALTERED MENTAL STATUS Stated Complaint: ALTERED MENTAL STATUS History of Present Illness The patient is a 66 year old female who presents to the Emergency Room with complaints of persistent altered mental status starting LE[employer]IC[employer]. The patient presents to the ED by EMS. She was sleeping and woke up to go to the bathroom. She stood up and felt a pop in the back of her head where she has been having a headache. She states she has an aneurysm there. After feeling the pop in her head, she felt "tremendous". She then looked around and did not know where she was. She called the police to take her to the airport. She did not want to take a taxi because there are too many drunk drivers on the road. She wants to fly to [place] so that she can buy a surfboard. She would like to go to the [place] and stand on her surfboard. She says this is on her bucket list. She notes that she was started on a new medication by her psychiatrist which she started today. She has neck pain on the sides that goes into her shoulder. She states this started 4 months ago. She has a history of stroke and aneurysm. She denies any thoughts of hurting herself or others. She does not think there is anything wrong with her. She denies any drug or alcohol use. 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 Review of Systems See HPI for pertinent positives and negatives. A total of ten systems were reviewed and were otherwise negative. 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 (11) HTN (hypertension) (12) Hyperlipidemia (13) Hypertensive urgency (14) Lumbago (15) Mixed anxiety and depressive disorder (16) OSTEOPOROSIS NEC (17) Parkinson disease (18) RESTLESS LEGS SYNDROME (19) Severe uncontrolled hypertension (20) Sleep apnea (21) Spinal stenosis Surgical Problems: (1) History of excision of vulvar cancer (2) History of spinal surgery (3) S p biopsy removal of spinal cord lesion (4) S/P excision of lipoma (5) Status post right knee replacement Family History Cerebral hemorrhage SISTER Heart disease FATHER ([place]) Hypertension MOTHER SISTER Kidney disease Social History Smoking Status: Unknown if Ever Smoked Alcohol Use: none Drug Use: none Marital Status: Housing Status: lives with family Occupation Status: disabled Current/Historical Medications Scheduled Amlodipine (Norvasc), 5 MG PO DAILY Clonazepam (Clonazepam), 1 MG PO QAM Clonidine HCl (Clonidine HCl), 0.3 MG PO BID Escitalopram Oxalate (Escitalopram Oxalate), 20 MG PO DAILY Folic Acid (Folvite), 1 MG PO DAILY Gabapentin (Gabapentin), 400 MG PO TID Hydralazine HCl (Hydralazine HCl), 10 MG PO TID Hydrochlorothiazide (Hctz), 25 MG PO QAM Ipratropium-Albuterol (Combivent Respimat), 1 PUFF PO UD Levodopa/Carbidopa (Carbidopa/Levodopa 25-250 mg), 1 TAB PO 7 TIMES A DAY Lisinopril (Lisinopril), 20 MG PO BID Omeprazole (Prilosec), 20 MG PO DAILY Potassium Ext Rel (Klor-Con), 20 MEQ PO DAILY Sennosides (Senna Lax), 1 TAB PO DAILY Thiamine Hcl (Vitamin B-1), 100 MG PO DAILY Trazodone HCl (Trazodone HCl), 200 MG PO HS Allergies Coded Allergies: Nicotine (Verified Allergy, Intermediate, skin irritation, 10/21/17) BEE STING (Verified Allergy, Unknown, "I PASS OUT.", 10/21/17) Bupropion (Verified Allergy, Unknown, unknown, 10/21/17) Codeine (Verified Allergy, Unknown, unknown - TOLERATES PERCOCET, 10/21/17) Sulfa Antibiotics (Verified Allergy, Unknown, ., 10/21/17) Physical Exam Vital Signs Date Time Temp Pulse Resp B/P (MAP) Pulse Ox O2 Delivery O2 Flow Rate FiO2 10/21/17 04:05 49 16 98 10/21/17 04:00 110/62 10/21/17 03:35 49 20 96 12/5/17 03:30 108/65 10/21/17 03:20 51 23 96 10/21/17 03:15 55 23 95 10/21/17 03:01 87/55 10/21/17 03:00 61 23 95 10/21/17 02:45 60 17 96 10/21/17 02:15 69 16 96 Room Air 10/21/17 02:08 75 10/21/17 02:08 36.5 76 22 118/71 98 Room Air 10/21/17 02:06 118/71 Physical Exam GENERAL: Awake, alert, well-appearing, in no distress HENT: Normocephalic, atraumatic. Oropharynx unremarkable. EYES: Normal conjunctiva. Sclera non-icteric. NECK: Supple. No nuchal rigidity. FROM. No JVD. RESPIRATORY: Clear to auscultation. CARDIAC: Regular rate, normal rhythm. Extremities warm and well perfused. Pulses equal. ABDOMEN: Soft, non-distended. No tenderness to palpation. No rebound or guarding. No masses. RECTAL: Deferred. MUSCULOSKELETAL: Chest examination reveals no tenderness. The back is symmetrical on inspection without obvious abnormality. There is no CVA tenderness to palpation. No joint edema. LOWER EXTREMITIES: Calves are equal size bilaterally and non-tender. No edema. No discoloration. NEURO: Normal sensorium. No sensory or motor deficits noted. SKIN: No rash or jaundice noted. PSYCH: Flight of ideas. No SI or HI. Tangential thoughts. Medical Decision & Procedures ER Provider Diagnostic Interpretation: Radiology results as stated below per my review and [facility] radiologist interpretation: CT Head: Comparison: CT head August 07, 2016 No ICH, mass effect, or midline shift. No acute cortical infarct. Laboratory Results 10/21/17 01:45 Red Blood Count 3.97, Mean Corpuscular Volume 94.7, Mean Corpuscular Hemoglobin 31.0, Mean Corpuscular Hemoglobin Concent 32.7, Mean Platelet Volume 10.0, Neutrophils (%) (Auto) 53.5, Lymphocytes (%) (Auto) 36.4, Monocytes (%) (Auto) 8.2, Eosinophils (%) (Auto) 1.5, Basophils (%) (Auto) 0.4, Neutrophils # (Auto) 2.82, Lymphocytes # (Auto) 1.92, Monocytes # (Auto) 0.43, Eosinophils # (Auto) 0.08, Basophils # (Auto) 0.02 10/21/17 01:45 Test 10/21/17 01:45 10/21/17 02:18 10/21/17 02:20 10/21/17 02:52 White Blood Count 5.27 K/uL (4.8-10.8) Red Blood Count 3.97 M/uL (4.2-5.4) Hemoglobin 12.3 g/dL (12.0-16.0) Hematocrit 37.6 % (37-47) Mean Corpuscular Volume 94.7 fL (80-100) Mean Corpuscular Hemoglobin 31.0 pg (25-34) Mean Corpuscular Hemoglobin Concent 32.7 g/dl (32-36) Platelet Count 205 K/uL (130-400) Mean Platelet Volume 10.0 fL (7.4-10.4) Neutrophils (%) (Auto) 53.5 % Lymphocytes (%) (Auto) 36.4 % Monocytes (%) (Auto) 8.2 % Eosinophils (%) (Auto) 1.5 % Basophils (%) (Auto) 0.4 % Neutrophils # (Auto) 2.82 K/uL (1.4-6.5) Lymphocytes # (Auto) 1.92 K/uL (1.2-3.4) Monocytes # (Auto) 0.43 K/uL (0.11-0.59) Eosinophils # (Auto) 0.08 K/uL (0-0.5) Basophils # (Auto) 0.02 K/uL (0-0.2) RDW Standard Deviation 45.5 fL (36.4-46.3) RDW Coefficient of Variation 13.2 % (11.5-14.5) Immature Granulocyte % (Auto) 0.0 % Immature Granulocyte # (Auto) 0.00 K/uL (0.00-0.02) Anion Gap 7.0 mmol/L (3-11) Est Creatinine Clear Calc Drug Dose 82.6 ml/min Estimated GFR () 96.1 Estimated GFR (Non- 82.9 BUN/Creatinine Ratio 36.2 (10-20) Calcium Level 8.4 mg/dl (8.5-10.1) Total Bilirubin 0.4 mg/dl (0.2-1) Direct Bilirubin < 0.1 mg/dl (0-0.2) Aspartate Amino Transf (AST/SGOT) 5 U/L (15-37) Alanine Aminotransferase (ALT/SGPT) 9 U/L (12-78) Alkaline Phosphatase 63 U/L (45-117) Total Protein 6.8 gm/dl (6.4-8.2) Albumin 3.8 gm/dl (3.4-5.0) Thyroid Stimulating Hormone (TSH) 0.982 uIu/ml (0.300-4.500) Bedside Glucose 91 mg/dl (70-90) Urine Color YELLOW Urine Appearance CLEAR (CLEAR) Urine pH 5.5 (4.5-7.5) Urine Specific [place] 1.023 (1.000-1.030) Urine Protein NEG (NEG) Urine Glucose (UA) NEG (NEG) Urine Ketones TRACE (NEG) Urine Occult Blood NEG (NEG) Urine Nitrite NEG (NEG) Urine Bilirubin NEG (NEG) Urine Urobilinogen NEG (NEG) Urine Leukocyte Esterase SMALL (NEG) Urine WBC (Auto) 1-5 /hpf (0-5) Urine RBC (Auto) 0-4 /hpf (0-4) Urine Hyaline Casts (Auto) 1-5 /lpf (0-5) Urine Epithelial Cells (Auto) 10-20 /lpf (0-5) Urine Bacteria (Auto) NEG (NEG) Urine Opiates Screen NEG (NEG) Urine Methadone, Qualitative NEG (NEG) Urine Barbiturates NEG (NEG) Urine Phencyclidine (PCP) Level NEG (NEG) Ur Amphetamine/Methamphetamine NEG (NEG) MDMA (Ecstasy) Screen POS (NEG) Urine Benzodiazepines Screen NEG (NEG) Urine Cocaine Metabolite NEG (NEG) Urine Marijuana (THC) NEG (NEG) Ethyl Alcohol mg/dL < 3.0 mg/dl (0-3) Laboratory results reviewed by me Medications Administered Medications (Trade) Dose Ordered Sig/Jagruti Route Start Time Stop Time Status Last Admin Dose Admin Acetaminophen (Tylenol Tab) 1,000 mg STK-MED ONCE PO 10/21/17 02:48 10/21/17 02:49 DC 10/21/17 02:50 1,000 MG ED Course 0206: The patient was evaluated in room B12B. A complete history and physical exam was performed. 0248: Acetaminophen 1000 mg PO. 0412: The patient has been evaluated by [facility]. I discussed results and discharge instructions with the patient: She verbalized understanding and agreement. She will be discharged home. Medical Decision Differential diagnoses include but are not limited to; migraine, tension headache, psychosis, schizophrenia, bipolar disorder, dehydration. Patient remained in stable condition throughout emergency department evaluation. Patient underwent CT imaging which was negative. Patient's labs were not significantly abnormal. Case was discussed with the psychiatry counselor evaluated the patient. Patient has a psychiatry follow-up this week and is currently not suicidal or homicidal. I don't think the patient has acute psychosis this time. Patient will be discharged home with follow-up Medication Reconcilliation Current Medication List: was personally reviewed by me Blood Pressure Screening Patient's blood pressure: Normal blood pressure Blood pressure disposition: Did not require urgent referral Impression Primary Impression: Headache Additional Impression: Delusions Scribe Attestation The scribe's documentation has been prepared under my direction and personally reviewed by me in its entirety. I confirm that the note above accurately reflects all work, treatment, procedures, and medical decision making performed by me. Departure Information Dispostion Home / Self-Care Referrals Lucie Escobar M.D. (PCP) Patient Instructions Delusional Disorder, ED Headache Tension, My [facility] Additional Instructions Follow-up with primary care physician and psychiatrist this week. Return for worsening symptoms Problem Qualifiers
[2017-10-21 02:39] LABS: ALT/SGPT 9 U/L (12-78); AST/SGOT 5 U/L (15-37); BLOOD UREA NITROGEN 27 mg/dl (7-18); BUN/CREATININE RATIO 36.2 (10-20); CALCIUM 8.4 mg/dl (8.5-10.1); CARBON DIOXIDE 28 mmol/L (21-32); CHLORIDE 102 mmol/L (98-107); CREATININE 0.76 mg/dl (0.60-1.20); GLUCOSE 93 mg/dl (70-99); POTASSIUM 3.2 mmol/L (3.5-5.1); SODIUM 137 mmol/L (136-145)
[2017-10-21 02:43] LABS: URINE APPEARANCE CLEAR (CLEAR); URINE BILIRUBIN NEG (NEG); URINE COLOR YELLOW; URINE NITRITE NEG (NEG); URINE PH 5.5 (4.5-7.5); URINE SPECIFIC GRAVITY 1.023 (1.000-1.030); UROBILINOGEN NEG (NEG)
[2017-10-21] MEDS ORDERED: NURSING VERBAL MED ORDER ONE (02:45)
[2017-10-21] MEDS ORDERED: ACETAMINOPHEN 500 MG TAB PO ONE (02:48)
[2017-10-21] MEDS ORDERED: PRLSR20 PO (02:48)
[2017-10-21 02:49] LABS: ALKALINE PHOSPHATASE 63 U/L (45-117); THYROID STIMULATING HORMONE 0.982 uIu/ml (0.300-4.500)
[2017-10-21] MEDS ORDERED: LXP/20 PO (02:50)
[2017-10-21] MEDS ORDERED: [UNRECOGNIZED DRUG - CODE] PO (02:51)
[2017-10-21] MEDS ORDERED: IPRA1AER2 PO (02:52)
[2017-10-21] MEDS ORDERED: HYDR-2977 PO (02:52)
[2017-10-21] MEDS ORDERED: SENN1TAB80 PO (02:53)
[2017-10-21] MEDS ORDERED: THIA100T11 PO (02:53)
[2017-10-21] MEDS ORDERED: FOLI1TAB7 PO (02:53)
[2017-10-21 03:00] LABS: MANUAL MICROSCOPIC REQUIRED? NO; REVIEW REQ? NO
[2017-10-21 03:08] LABS: BENZODIAZEPINE, URINE NEG (NEG); COCAINE,URINE NEG (NEG); PHENCYCLIDINE, URINE NEG (NEG)
[2017-10-21 04:30] VITALS: BP 99/58
[2017-10-21 04:40] VITALS: PULSE 51; O2SAT 95
--- NOTE | 2017-10-21 06:44 | DIAGNOSTIC IMAGING REPORT ---
HEAD WITHOUT CONTRAST (CT) CLINICAL HISTORY: 66 years-old Female with headache. Acute headache with altered mental status TECHNIQUE: Multiple axial CT images of the head were obtained without contrast. A dose lowering technique was utilized adhering to the principles of ALARA. CT DOSE: 537.48 mGy.cm COMPARISON: CT head 06/01/2017. FINDINGS: No acute intracranial hemorrhage, midline shift, intracranial mass, hydrocephalus, territorial ischemia or abnormal extra-axial collection. 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 There is mild atrophy. The calvarium is intact. The paranasal sinuses, mastoid air cells, and middle ear cavities are clear. Note is made of a metopic suture. IMPRESSION: No acute intracranial abnormality. The above report was generated using voice recognition software. It may contain grammatical, syntax or spelling errors. Electronically signed by: Miky Chaudhari M.D. 10/21/2017 6:43 AM Dictated Date/Time: 10/21/2017 6:41 AM
== END 2017-10-21 04:44 | disposition home or self-care (01) ==
LOC: EDBD 02:00 → C.EDB 02:02
DX: R51 Headache (principal); F22 Delusional disorders; I67.1 Cerebral aneurysm, nonruptured; M54.2 Cervicalgia; M17.10 Unilateral primary osteoarthritis, unspecified knee; J44.9 Chronic obstructive pulmonary disease, unspecified; F32.9 Major depressive disorder, single episode, unspecified; K21.9 Gastro-esophageal reflux disease without esophagitis; I10 Essential (primary) hypertension; E78.5 Hyperlipidemia, unspecified; M54.5 Low back pain; M81.0 Age-related osteoporosis without current pathological fracture; G20 Parkinson's disease; G25.81 Restless legs syndrome; G47.30 Sleep apnea, unspecified; M48.00 Spinal stenosis, site unspecified; Z96.651 Presence of right artificial knee joint; Z85.44 Personal history of malignant neoplasm of other female genital organs; Z82.49 Family history of ischemic heart disease and other diseases of the circulatory system

== ENCOUNTER 2017-12-04 09:47 | Emergency (ER) | payer OTHER ==
[~2017-12-04] VITALS: Ht 167.6 cm; Wt 80.0 kg
[~2017-12-04 09:47] MED LIST changes: -ATOR10TA82 PO; -ESCI1TAB9 PO; +FOLI1TAB8 PO; +HYDR-2977 PO; +IPRA1AER2 PO; +LXP/20 PO; -OMEP20TA40 PO; +PRLSR20 PO; +SENN1TAB80 PO; +THIA100T11 PO; +[UNRECOGNIZED DRUG - CODE] PO
[2017-12-04 09:57] VITALS: TEMP 37.1; Ht 167.6 cm; Wt 80.0 kg
[2017-12-04] MEDS ORDERED: SODIUM CHLORIDE 0.9% 1000ML 500 ML IV STA (10:06)
--- NOTE | 2017-12-04 10:22 | EMERGENCY ROOM VISIT NOTE ---
History Report prepared by Freddie: Brooks Payne Under the Supervision of: Dr. Casey Costa M.D. First contact with patient: 09:59 Chief Complaint: CARDIAC ASSESSMENT Stated Complaint: HEADACHE/PALPITATIONS/CHEST HEAVINESS History of Present Illness The patient is a 66 year old female who presents to the Emergency Room with complaints of worsening difficulty speaking for the past couple of weeks along with left chest tightness. The patient notes that she has been having difficulty getting her words out for the past 5 years, though it recently got worse. She states that she has had pain in her left chest and left flank which is worse with palpation. The patient additionally states that she is currently weak all over, and she states that she is unable to control her bladder. She denies any new medications in the past few weeks, and she denies any recent falls, though she fell in the summer. The patient states that she has not seen her PCP since February, and today they told her to come to the ED for evaluation. The patient states that she has a history of cancer and had one side of her labia removed, and she states that she used to be a smoker. The patient denies any fever or cough. She states that she has not recently drank alcohol or done any other drugs. She states that she lost a lot of weight recently, though her appetite has picked back up in the past three weeks, and she usually has trouble swallowing so prefers liquids. 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 Source of History: patient Onset: past few weeks Position: chest (left), other (global) Quality: other (chest tightness and difficulty speaking) Timing: worsening Associated Symptoms: + numbness, No fevers, No cough Note: Associated symptoms: Difficulty swallowing, unable to control bladder, and weight loss. Review of Systems See HPI for pertinent positives & negatives. A total of 10 systems reviewed and were otherwise negative. 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 (11) HTN (hypertension) (12) Hyperlipidemia (13) Hypertensive urgency (14) Lumbago (15) Mixed anxiety and depressive disorder (16) OSTEOPOROSIS NEC (17) Parkinson disease (18) RESTLESS LEGS SYNDROME (19) Severe uncontrolled hypertension (20) Sleep apnea (21) Spinal stenosis Surgical Problems: (1) History of excision of vulvar cancer (2) History of spinal surgery (3) S p biopsy removal of spinal cord lesion (4) S/P excision of lipoma (5) Status post right knee replacement Family History Cerebral hemorrhage SISTER Heart disease FATHER ([place]) Hypertension MOTHER SISTER Kidney disease Social History Smoking Status: Unknown if Ever Smoked Alcohol Use: none Drug Use: none Marital Status: Housing Status: lives with family Occupation Status: disabled Current/Historical Medications Scheduled Amlodipine (Norvasc), 5 MG PO DAILY Clonazepam (Clonazepam), 1 MG PO QAM Clonidine HCl (Clonidine HCl), 0.3 MG PO BID Escitalopram Oxalate (Escitalopram Oxalate), 20 MG PO DAILY Folic Acid (Folvite), 1 MG PO DAILY Gabapentin (Gabapentin), 400 MG PO TID Hydralazine HCl (Hydralazine HCl), 10 MG PO TID Hydrochlorothiazide (Hctz), 25 MG PO QAM Ipratropium-Albuterol (Combivent Respimat), 1 PUFF PO UD Levodopa/Carbidopa (Carbidopa/Levodopa 25-250 mg), 1 TAB PO 7 TIMES A DAY Lisinopril (Lisinopril), 20 MG PO BID Omeprazole (Prilosec), 20 MG PO DAILY Sennosides (Senna Lax), 1 TAB PO DAILY Thiamine Hcl (Vitamin B-1), 100 MG PO DAILY Trazodone HCl (Trazodone HCl), 200 MG PO HS Allergies Coded Allergies: Nicotine (Verified Allergy, Intermediate, skin irritation, 12/04/17) BEE STING (Verified Allergy, Unknown, "I PASS OUT.", 12/04/17) Bupropion (Verified Allergy, Unknown, unknown, 12/04/17) Codeine (Verified Allergy, Unknown, unknown - TOLERATES PERCOCET, 12/04/17) Sulfa Antibiotics (Verified Allergy, Unknown, ., 12/04/17) Physical Exam Vital Signs Date Time Temp Pulse Resp B/P (MAP) Pulse Ox O2 Delivery O2 Flow Rate FiO2 12/04/17 14:49 60 18 141/78 98 Room Air 1/18/18 13:00 58 19 146/80 99 Room Air 12/04/17 11:12 99 Room Air 12/04/17 11:12 53 155/73 58 140/74 54 127/77 12/04/17 10:05 59 12/04/17 09:57 37.1 54 18 136/85 94 Room Air Physical Exam GENERAL: Patient is in no acute distress. HEENT: No acute trauma, normocephalic atraumatic, mucous membranes moist, no nasal congestion, no scleral icterus. NECK: No stridor, no adenopathy, no meningismus, trachea is midline. LUNGS: Clear to auscultation bilaterally, no wheeze, no rhonchi, breath sounds equal. HEART: Without murmurs gallops or rubs, regular rate and rhythm. ABDOMEN: Soft, nontender, bowel sounds positive, no hernias, no peritonitis. EXTREMITIES: No cyanosis or edema, full range of motion of all the joints without pain or difficulty, no signs for acute trauma. NEUROLOGIC: Oriented x 3, no acute motor or sensory deficits, no focal weakness. SKIN: No rash, no jaundice, no diaphoresis. Medical Decision & Procedures ER Provider Diagnostic Interpretation: Orthostatic vital signs were positive. Radiology results as stated below per my review and radiologist interpretation: CT HEAD WITHOUT CONTRAST (CT) CLINICAL HISTORY: Altered mental status. Weakness. COMPARISON STUDY: 10/21/2017 TECHNIQUE: Axial CT of the brain is performed from the vertex to the skull base. IV contrast was not administered for this examination. A dose lowering technique was utilized adhering to the principles of ALARA. CT DOSE: 1356.32 mGy.cm FINDINGS: No intra or extra-axial mass lesions are visualized. There is no CT evidence of acute cortical infarction. There is no evidence of midline shift. There is no acute hemorrhage. No calvarial fractures are visualized. There are minor white matter hypodensities likely on a small vessel basis. There is a stable area of focal atrophy/remote infarction involving the right frontal lobe. There is no evidence of pathologic ventricular dilatation. There is no evidence of acute sinusitis IMPRESSION: No acute intracranial findings Electronically signed by: Rich Wallace M.D. 12/04/2017 1:13 PM Dictated Date/Time: 12/04/2017 1:11 PM CHEST ONE VIEW PORTABLE CLINICAL HISTORY: Altered mental status. COMPARISON STUDY: 08/07/2016 FINDINGS: The heart is normal in size. There is mild aortic tortuosity/ectasia. There is no overt failure. There is no focal pulmonary consolidation. There is minor basilar interstitial thickening. This is relatively similar to the prior study.[ IMPRESSION: No active disease in the chest. Electronically signed by: Rich Wallace M.D. 12/04/2017 10:45 AM Dictated Date/Time: 12/04/2017 10:44 AM ABDOMEN AND PELVIS CT WITH IV AND ORAL CONTRAST HISTORY: Acute generalized abdominal pain ABDOMINAL PAIN/GI--?mass--GIVE PO AND IV CONTRAST TECHNIQUE: Multiaxial CT images of the abdomen and pelvis were performed following the use of intravenous and oral contrast. A dose lowering technique was utilized adhering to the principles of ALARA. COMPARISON STUDY: CT abdomen and pelvis 06/01/2017. FINDINGS: Mild dependent subsegmental bibasilar atelectasis. There is no pneumatosis or pneumoperitoneum identified. Coronary arterial disease. The imaged inferior cardiac chambers are unremarkable. The gallbladder, liver, spleen, pancreas and adrenal glands are within normal limits. Peripheral linear 5 mm calcification of the lateral aspect interpolar right kidney is again noted suggesting parenchymal calcification or calculus. No obstructive uropathy. Ureters, urinary bladder, uterus and adnexa are within normal limits. Moderate mixed plaquing of the aorta. No aneurysm. No bulky adenopathy. There is no bowel obstruction identified. There is tortuosity of the sigmoid colon. There is mild wall thickening of the mid sigmoid colon as seen on image 304 series 5, likely secondary to partial distention without surrounding inflammatory stranding. Mild to moderate sigmoid colon diverticulosis without CT evidence of acute diverticulitis. The appendix is not seen and likely surgically absent. No ascites or mesenteric inflammatory changes. Soft tissues are unremarkable. The bones appear to be intact. Postoperative changes from prior posterior decompression with interbody flory and screw fusion at L3-S1. No evidence of hardware fracture or loosening. Prior discectomy at L5-S1. IMPRESSION: 1. No acute intra-abdominal or intrapelvic abnormality identified. 2. Mild to moderate sigmoid colon diverticulosis without evidence of acute diverticulitis. Electronically signed by: Miky Chaudhari M.D. 12/04/2017 1:19 PM Dictated Date/Time: 12/04/2017 1:12 PM Laboratory Results 12/04/17 10:00 Red Blood Count 4.17, Mean Corpuscular Volume 93.3, Mean Corpuscular Hemoglobin 30.9, Mean Corpuscular Hemoglobin Concent 33.2, Mean Platelet Volume 10.2, Neutrophils (%) (Auto) 59.6, Lymphocytes (%) (Auto) 32.9, Monocytes (%) (Auto) 6.3, Eosinophils (%) (Auto) 0.7, Basophils (%) (Auto) 0.5, Neutrophils # (Auto) 3.48, Lymphocytes # (Auto) 1.92, Monocytes # (Auto) 0.37, Eosinophils # (Auto) 0.04, Basophils # (Auto) 0.03 12/04/17 10:00 Test 12/04/17 10:00 12/04/17 10:36 12/04/17 11:00 White Blood Count 5.84 K/uL (4.8-10.8) Red Blood Count 4.17 M/uL (4.2-5.4) Hemoglobin 12.9 g/dL (12.0-16.0) Hematocrit 38.9 % (37-47) Mean Corpuscular Volume 93.3 fL (80-100) Mean Corpuscular Hemoglobin 30.9 pg (25-34) Mean Corpuscular Hemoglobin Concent 33.2 g/dl (32-36) Platelet Count 189 K/uL (130-400) Mean Platelet Volume 10.2 fL (7.4-10.4) Neutrophils (%) (Auto) 59.6 % Lymphocytes (%) (Auto) 32.9 % Monocytes (%) (Auto) 6.3 % Eosinophils (%) (Auto) 0.7 % Basophils (%) (Auto) 0.5 % Neutrophils # (Auto) 3.48 K/uL (1.4-6.5) Lymphocytes # (Auto) 1.92 K/uL (1.2-3.4) Monocytes # (Auto) 0.37 K/uL (0.11-0.59) Eosinophils # (Auto) 0.04 K/uL (0-0.5) Basophils # (Auto) 0.03 K/uL (0-0.2) RDW Standard Deviation 45.2 fL (36.4-46.3) RDW Coefficient of Variation 13.3 % (11.5-14.5) Immature Granulocyte % (Auto) 0.0 % Immature Granulocyte # (Auto) 0.00 K/uL (0.00-0.02) Prothrombin Time 10.2 SECONDS (9.0-12.0) Prothromb Time International Ratio 1.0 (0.9-1.1) Activated Partial Thromboplast Time 26.1 SECONDS (21.0-31.0) Partial Thromboplastin Ratio 1.0 Anion Gap 5.0 mmol/L (3-11) Est Creatinine Clear Calc Drug Dose 94.7 ml/min Estimated GFR () 109.3 Estimated GFR (Non- 94.3 BUN/Creatinine Ratio 20.1 (10-20) Calcium Level 8.8 mg/dl (8.5-10.1) Magnesium Level 2.0 mg/dl (1.8-2.4) Total Bilirubin 0.4 mg/dl (0.2-1) Aspartate Amino Transf (AST/SGOT) 8 U/L (15-37) Alanine Aminotransferase (ALT/SGPT) 8 U/L (12-78) Alkaline Phosphatase 70 U/L (45-117) Troponin I < 0.015 ng/ml (0-0.045) Total Protein 7.3 gm/dl (6.4-8.2) Albumin 4.0 gm/dl (3.4-5.0) Globulin 3.3 gm/dl (2.5-4.0) Albumin/Globulin Ratio 1.2 (0.9-2) Thyroid Stimulating Hormone (TSH) 1.420 uIu/ml (0.300-4.500) Ethyl Alcohol mg/dL < 3.0 mg/dl (0-3) Urine Color YELLOW Urine Appearance CLEAR (CLEAR) Urine pH 8.0 (4.5-7.5) Urine Specific Mccoll 1.011 (1.000-1.030) Urine Protein NEG (NEG) Urine Glucose (UA) NEG (NEG) Urine Ketones NEG (NEG) Urine Occult Blood NEG (NEG) Urine Nitrite NEG (NEG) Urine Bilirubin NEG (NEG) Urine Urobilinogen NEG (NEG) Urine Leukocyte Esterase TRACE (NEG) Urine WBC (Auto) 1-5 /hpf (0-5) Urine RBC (Auto) 0-4 /hpf (0-4) Urine Hyaline Casts (Auto) 0 /lpf (0-5) Urine Epithelial Cells (Auto) 0-5 /lpf (0-5) Urine Bacteria (Auto) NEG (NEG) Urine Opiates Screen NEG (NEG) Urine Methadone, Qualitative NEG (NEG) Urine Barbiturates NEG (NEG) Urine Phencyclidine (PCP) Level NEG (NEG) Ur Amphetamine/Methamphetamine NEG (NEG) MDMA (Ecstasy) Screen NEG (NEG) Urine Benzodiazepines Screen NEG (NEG) Urine Cocaine Metabolite NEG (NEG) Urine Marijuana (THC) NEG (NEG) Laboratory results reviewed by me. Medications Administered Medications (Trade) Dose Ordered Sig/Jagruti Route Start Time Stop Time Status Last Admin Dose Admin Sodium Chloride 500 ml @ 999 mls/hr Q31M STAT IV 12/04/17 10:06 12/04/17 10:36 DC 12/04/17 10:06 999 MLS/HR ECG Indication: other (difficulty speaking and chest tightness) Rate (beats per minute): 53 Rhythm: sinus bradycardia Findings: no acute ischemic change, no ectopy, other (old septal infarct) ED Course 0959: The patient was evaluated in room B5. A complete history and physical exam was performed. 1006: Sodium Chloride 500 ml @ 999 mls/hr IV 1331: I reevaluated the patient, and updated her on her results thus far. 1426: Reevaluated the patient. Discussed results and discharge instructions: She verbalized understanding and agreement. The patient is ready for discharge. Medical Decision Differential diagnoses considered include malignancy, medication reaction, drug abuse, stroke, intracranial mass, thyroid disorder, UTI, electrolyte imbalance, anemia. There is no leukocytosis or concerning anemia. No significant electrolyte abnormality, kidney failure or hepatitis. The patient appears to be in a euthyroid state. Urinalysis does not show infection. Urine tox is negative. Alcohol level is undetectable. EKG shows a sinus bradycardia, no acute ischemia. Cardiac enzyme testing 1 is not consistent with acute cardiac injury. Chest film does not show pneumonia, mass or pneumothorax. Brain CT shows no acute bleed or mass effect. Abdominal and pelvis CT shows no bowel obstruction, no mass, no acute surgical pathology. On exam, the patient was not febrile or toxic. She had no focal neurologic deficits. She was orthostatic by our testing. The patient received IV saline. She has done well. The patient was reassured by her testing. I have advised family doctor follow- up for potential further testing/workup. She can return if worsening. At this point, the cause for her presentation is unclear-her symptoms have been ongoing , some of them for years. She was advised to stay better hydrated. Medication Reconcilliation Current Medication List: was personally reviewed by me Blood Pressure Screening Patient's blood pressure: Elevated blood pressure Blood pressure disposition: Elevated BP felt to be situational Impression Primary Impression: Weakness Additional Impressions: Fatigue Dehydration Left sided chest pain Scribe Attestation The scribe's documentation has been prepared under my direction and personally reviewed by me in its entirety. I confirm that the note above accurately reflects all work, treatment, procedures, and medical decision making performed by me. Departure Information Dispostion Home / Self-Care Referrals Lucie Escobar M.D. (PCP) Forms IMPORTANT VISIT INFORMATION Patient Instructions My [facility] Additional Instructions stay well hydrated rest tylenol for pain see sis russell for a reheck and possible further workup lab testing and imaging was all ok today as we discussed return if worsening Problem Qualifiers
[2017-12-04 10:23] LABS: BASO % 0.5 %; BASO ABS # 0.03 K/uL (0-0.2); EOS % 0.7 %; EOS ABS # 0.04 K/uL (0-0.5); HEMATOCRIT 38.9 % (37-47); HEMOGLOBIN 12.9 g/dL (12.0-16.0); LYMPH % 32.9 %; LYMPH ABS # 1.92 K/uL (1.2-3.4); MEAN CELL VOLUME 93.3 fL (80-100); MEAN CORPUSCULAR HEMOGLOBIN 30.9 pg (25-34); MEAN CORPUSCULAR HGB CONC 33.2 g/dl (32-36); MEAN PLATELET VOLUME 10.2 fL (7.4-10.4); MONO % 6.3 %; MONO ABS # 0.37 K/uL (0.11-0.59); NEUT % 59.6 %; NEUT ABS # 3.48 K/uL (1.4-6.5); PLATELET COUNT 189 K/uL (130-400); RED CELL DISTRIBUTION WIDTH CV 13.3 % (11.5-14.5); RED CELL DISTRIBUTION WIDTH SD 45.2 fL (36.4-46.3); WHITE BLOOD COUNT 5.84 K/uL (4.8-10.8)
[2017-12-04 10:34] LABS: PTT PATIENT 26.1 SECONDS (21.0-31.0)
[2017-12-04 10:41] LABS: ALT/SGPT 8 U/L (12-78); AST/SGOT 8 U/L (15-37); BLOOD UREA NITROGEN 13 mg/dl (7-18); CALCIUM 8.8 mg/dl (8.5-10.1); CARBON DIOXIDE 29 mmol/L (21-32); CREATININE 0.64 mg/dl (0.60-1.20); GLUCOSE 97 mg/dl (70-99); POTASSIUM 3.3 mmol/L (3.5-5.1); SODIUM 136 mmol/L (136-145)
--- NOTE | 2017-12-04 10:47 | DIAGNOSTIC IMAGING REPORT ---
CHEST ONE VIEW PORTABLE CLINICAL HISTORY: Altered mental status. COMPARISON STUDY: 08/07/2016 FINDINGS: The heart is normal in size. There is mild aortic tortuosity/ectasia. There is no overt failure. There is no focal pulmonary consolidation. There is minor basilar interstitial thickening. This is relatively similar to the prior study.[ IMPRESSION: No active disease in the chest. Electronically signed by: Rich Wallace M.D. 12/04/2017 10:45 AM Dictated Date/Time: 12/04/2017 10:44 AM
[2017-12-04 10:52] LABS: ALKALINE PHOSPHATASE 70 U/L (45-117); TOTAL PROTEIN 7.3 gm/dl (6.4-8.2)
[2017-12-04 11:12] VITALS: O2SAT 99
[2017-12-04] MEDS ORDERED: OPTIRAY 320 IV PRN (13:00)
--- NOTE | 2017-12-04 13:14 | DIAGNOSTIC IMAGING REPORT ---
CT HEAD WITHOUT CONTRAST (CT) CLINICAL HISTORY: Altered mental status. Weakness. COMPARISON STUDY: 10/21/2017 TECHNIQUE: Axial CT of the brain is performed from the vertex to the skull base. IV contrast was not administered for this examination. A dose lowering technique was utilized adhering to the principles of ALARA. CT DOSE: 1356.32 mGy.cm FINDINGS: No intra or extra-axial mass lesions are visualized. There is no CT evidence of acute cortical infarction. There is no evidence of midline shift. There is no acute hemorrhage. No calvarial fractures are visualized. There are minor white matter hypodensities likely on a small vessel basis. There is a stable area of focal atrophy/remote infarction involving the right frontal lobe. There is no evidence of pathologic ventricular dilatation. There is no evidence of acute sinusitis IMPRESSION: No acute intracranial findings Electronically signed by: Rich Wallace M.D. 12/04/2017 1:13 PM Dictated Date/Time: 12/04/2017 1:11 PM
--- NOTE | 2017-12-04 13:20 | DIAGNOSTIC IMAGING REPORT ---
ABDOMEN AND PELVIS CT WITH IV AND ORAL CONTRAST HISTORY: Acute generalized abdominal pain ABDOMINAL PAIN/GI--?mass--GIVE PO AND IV CONTRAST TECHNIQUE: Multiaxial CT images of the abdomen and pelvis were performed following the use of intravenous and oral contrast. A dose lowering technique was utilized adhering to the principles of ALARA. COMPARISON STUDY: CT abdomen and pelvis 06/01/2017. FINDINGS: Mild dependent subsegmental bibasilar atelectasis. There is no pneumatosis or pneumoperitoneum identified. Coronary arterial disease. The imaged inferior cardiac chambers are unremarkable. The gallbladder, liver, spleen, pancreas and adrenal glands are within normal limits. Peripheral linear 5 mm calcification of the lateral aspect interpolar right kidney is again noted suggesting parenchymal calcification or calculus. No obstructive uropathy. Ureters, urinary bladder, uterus and adnexa are within normal limits. Moderate mixed plaquing of the aorta. No aneurysm. No bulky adenopathy. There is no bowel obstruction identified. There is tortuosity of the sigmoid colon. There is mild wall thickening of the mid sigmoid colon as seen on image 304 series 5, likely secondary to partial distention without surrounding inflammatory stranding. Mild to moderate sigmoid colon diverticulosis without CT evidence of acute diverticulitis. The appendix is not seen and likely surgically absent. No ascites or mesenteric inflammatory changes. Soft tissues are unremarkable. The bones appear to be intact. Postoperative changes from prior posterior decompression with interbody flory and screw fusion at L3-S1. No evidence of hardware fracture or loosening. Prior discectomy at L5-S1. IMPRESSION: 1. No acute intra-abdominal or intrapelvic abnormality identified. 2. Mild to moderate sigmoid colon diverticulosis without evidence of acute diverticulitis. Electronically signed by: Miky Chaudhari M.D. 12/04/2017 1:19 PM Dictated Date/Time: 12/04/2017 1:12 PM
[2017-12-04] MEDS ORDERED: SODIUM CHLORIDE 0.9% 1000ML 1,000 ML IV STA (13:31)
[2017-12-04 14:49] VITALS: BP 141/78; PULSE 60; O2SAT 98
== END 2017-12-04 15:06 | disposition home or self-care (01) ==
LOC: EDBD 09:47 → C.EDB 09:48
DX: E86.0 Dehydration (principal); R07.89 Other chest pain; J44.9 Chronic obstructive pulmonary disease, unspecified; F41.9 Anxiety disorder, unspecified; F32.9 Major depressive disorder, single episode, unspecified; K21.9 Gastro-esophageal reflux disease without esophagitis; I10 Essential (primary) hypertension; E78.5 Hyperlipidemia, unspecified; M81.0 Age-related osteoporosis without current pathological fracture; G20 Parkinson's disease; G25.81 Restless legs syndrome; Z96.651 Presence of right artificial knee joint; Z85.44 Personal history of malignant neoplasm of other female genital organs; Z87.891 Personal history of nicotine dependence; Z82.49 Family history of ischemic heart disease and other diseases of the circulatory system; Z84.1 Family history of disorders of kidney and ureter

== ENCOUNTER → 2018-06-04 | Outpatient (CLI) | payer OTHER ==
[~2018-06-04] MED LIST changes: -AMLO-110 PO; +AMLO5TAB3 PO; +GABA-112 PO; +LISI-726 PO; -LSN20 PO; -POTA20TA16 PO; +THIA100T10 PO; -THIA100T11 PO
== END | disposition home or self-care (01) ==
LOC: C.LABBC 14:35
PROVIDERS: ATTEND Nurse Practitioner Adult Health
DX: R39.9 Unspecified symptoms and signs involving the genitourinary system (principal)

== ENCOUNTER 2019-01-31 16:54 | Inpatient (IN) ==
[2019-01-31] MEDS ORDERED: SODIUM CHLORIDE 0.9% 1000ML 1,000 ML IV ONE (17:25)
[2019-01-31] MEDS ORDERED: DiphenhydrAMINE HCL 50 MG/ML VIAL IV STA (17:25)
[2019-01-31] MEDS ORDERED: MoRPHine SULFATE 4 MG/ML 1 ML CARP\\VIAL IV STA (17:25)
[2019-01-31 17:48] LABS: Eosinophils # (auto) 0.08 K/uL (0-0.5); Hematocrit (blood only) 40.6 % (37-47); Hemoglobin 13.1 g/dL (12.0-16.0); Immature Granulocytes # (auto) 0.02 K/uL (0.00-0.02); Immature Granulocytes % (auto) 0.2 %; Lymphocytes # (auto) 1.26 K/uL (1.2-3.4); Lymphocytes % (auto) 15.5 %; Mean Corpuscular Hgb Conc 32.3 g/dL (32-36); Mean Corpuscular Volume 95.3 fL (80-100); Mean Platelet Volume 9.9 fL (7.4-10.4); Monocytes # (auto) 0.26 K/uL (0.11-0.59); Monocytes % (auto) 3.2 %; Neutrophils # (auto) 6.52 K/uL (1.4-6.5); Neutrophils % (auto) 80.1 %; Platelet Count 232 K/uL (130-400); RDW Coefficient of Variation 13.7 % (11.5-14.5); RDW Standard Deviation 47.7 fL (36.4-46.3); Red Blood Count 4.26 M/uL (4.2-5.4); White Blood Count 8.14 K/uL (4.8-10.8)
[2019-01-31 18:08] LABS: BUN Creatinine Ratio 25.1 (10-20); Calcium 8.7 mg/dl (8.5-10.1); Creatinine Clr Calc Pharmacy 106.6 ml/min; Est GFR (African American) 111.3; Est GFR (Non-African American) 96.1; Potassium 3.4 mmol/L (3.5-5.1)
--- NOTE | 2019-01-31 20:57 | Magnetic Resonance Report ---
MRI OF THE BRAIN WITHOUT CONTRAST CLINICAL HISTORY: WORSENING POSTERIOR HEADACHE. COMPARISON STUDY: CT scan dated 08/07/2018, MRI the brain dated October [id number] FINDINGS: Sagittal T1, axial diffusion, proton density and T2 weighted axial, coronal FLAIR, and axial T1-weigh juan images were acquired. No intra or extra-axial mass lesions are visualized Axial diffusion-weighted images reveal no evidence of acute or subacute infarction. There is no evidence of ventricular dilatation. Proton density T2-weighted and FLAIR images reveal minimal foci of increased T2 signal within the whi te matter, likely on a small vessel basis. There are no abnormal flow voids. There is anterior calvarial thickening. This remains unchanged. There is a 17 mm focus of marrow replacement involving the right occipital bone. This demonstrates in creased signal on axial diffusion-weighted images. This lesion was not visualized on the prior IMPRESSION: 1. No evidence of acute or subacute infarction 2. No evidence of intracranial mass on this noncontrast study 3. Stable anterior calvarial thickening 4. Interval development of a 17 mm indeterminate focus of marrow replacement involving the right occi pital bone. This is of relatively low signal on T1 and T2 weighted images. This lesion is of increase d signal on axial diffusion-weighted images. In retrospect, there is a probable corresponding subtle calvarial sclerotic lesion on the prior CT scan performed July 2018. Likely diagnostic considera tions include osteoma, fibrous dysplasia, or osteoblastic metastasis. Electronically signed by: Rich Wallace M.D. 01/31/2019 8:55 PM
--- NOTE | 2019-01-31 21:25 | History & Physical Report ---
Date of Service January 31, 2019 Assessment & Plan (1) Skull lesion: 68-year-old female who presents with intractable headache. She has had this headache in the occipital area of her head she says for at least 2 years now. It is worsened in the last few months. It awakens her from sleep. She has been seen by neurology for this and is also for her parkinsonism. She was ordered a brain MRI in the outpatient setting in December but did not follow-up with this. She says because she is due to pain management appointments that were conflicting. In the ED she received a brain MRI which shows interval development of a 17 mm indeterminate focus of marrow replacement in the right occipital bone suspicious for osteoblastic metastasis. She was treated with 4 mg IV morphine and fluids. Later when she got to the floor she became unresponsive and was snoring loudly. She was a code purple. She was assessed and given a total of 0.6 mg of Narcan with spontaneous recovery of consciousness. -Brain MRI suspicious for osteoblastic lesion. -Significant risk factors include age, smoking history, not up-to-date with cancer screenings including Paps, mammography, colonoscopy. -PET scan of full body ordered -CMP and TSH pending -Urinalysis pending to screen for multiple myeloma FEN/GI: Heart healthy, no fluids indicated at this time. DVT ppx: SCDs CODE STATUS: Full code DISPO: MedSurg (2) Headache: (3) Uncontrolled pain: Code purple after 4 mg IV morphine in the ED, reversed with Narcan. -Judicious with opioids -0.25 mg Dilaudid as needed -IV Toradol as needed -Continue home baclofen, gabapentin 600 3 times daily. (4) COPD (chronic obstructive pulmonary disease): No known formal diagnosis of COPD. Continue home Combivent Respimat. -No acute issues. -Continuous pulse ox (5) GERD (gastroesophageal reflux disease): Continue home omeprazole (6) HTN (hypertension): continue home amlodipine 5 mg every morning, clonidine 0.3 twice daily, hydrochlorothiazide 25 every morning, lisinopril 20 mg daily. (7) Mixed anxiety and depressive disorder: Sees outpatient psychiatry once a month. No acute issues. -Continue home Celexa 40 mg, Klonopin 0.5 mg at bedtime as needed, Lamictal 50 mg at bedtime. (8) Parkinson disease: Continue home Sinemet 1 tablet by mouth 7 times daily. (9) History of cancer of vulva: Need to obtain records from Dr. Fulton , as a melanoma would be a likely culprit of metastatic disease. History of Present Illness Chief Complaint: intractable headache Primary Care Provider: GUDELIA Berrios 68-year-old female who presents with intractable headache. She has had this headache in the occipital area of her head she says for at least 2 years now. It is worsened in the last few months. It awakens her from sleep. She has been seen by neurology for this and is also for her parkinsonism. She was ordered a brain MRI in the outpatient setting in December but did not follow-up with this. She says because she is due to pain management appointments that were conflicting. In the ED she received a brain MRI which shows interval development of a 17 mm indeterminate focus of marrow replacement in the right occipital bone suspicious for osteoblastic metastasis. She also endorses decr eased appetite for several months, 60 pound weight loss in that time, states her balance is off and staggers and tips backwards. She endorses blurry vision. She was treated with 4 mg IV morphine and fluids. Later when she got to the floor she became unresponsive and was snoring loudly. She was a code purple. She was assessed and given a total of 0.6 mg of Narcan with spontaneous recovery of consciousness. PMH Reflux, aneurysm of basilar artery, anxiety, depression, osteoarthritis, hyperlipidemia, hypertension, stomach ulcer, history of CVA x2. Obstructive sleep apnea, has been told she should wear his CPAP at night but is noncompliant. PSH knee replacement remote history of skin cancer in labial area, done by Dr. Fulton apparently. Social history: Retired [employer]. since 1 year ago. 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 Former smoker 25 pack year history. Denies etoh/drug use. She says her power of securities attorney is her former [id number] Elpidio Schafer who lives in [place]. Allergies Allergy/AdvReac Type Severity Reaction Status Date / Time nicotine Allergy Intermediate skin Verified 01/31/19 18:16 irritation bee venom protein (honey bee) Allergy Unknown "I PASS Verified 01/31/19 18:16 OUT." bupropion Allergy Unknown unknown Verified 01/31/19 18:16 codeine Allergy Unknown unknown - Verified 01/31/19 18:16 TOLERATES PERCOCET Sulfa (Sulfonamide Allergy Unknown . Verified 01/31/19 18:16 Antibiotics) hydromorphone [From Dilaudid] AdvReac Unresponsiv Verified 02/01/19 03:28 e morphine AdvReac Unresponsiv Verified 02/01/19 03:28 e Home Medications Home Medications Medication Instructions Recorded Confirmed Type amlodipine 5 mg PO QAM 08/07/18 01/31/19 History carbidopa-levodopa [Sinemet] See Rx Instructions .ROUTE .COMPLEX 08/07/18 01/31/19 History clonazepam [Klonopin] 0.5 mg PO HS PRN 08/07/18 01/31/19 History fluticasone [Flonase Allergy 2 spray INTRANASAL DAILY PRN 08/07/18 01/31/19 History Relief] hydrochlorothiazide 25 mg PO QAM 08/07/18 01/31/19 History lamotrigine [Lamictal] 50 mg PO HS 08/07/18 01/31/19 History lisinopril 20 mg PO QAM 08/07/18 01/31/19 History omeprazole 20 mg PO QAM 08/07/18 01/31/19 History thiamine HCl (vitamin B1) 100 mg 100 mg PO QAM 11/23/18 01/31/19 History tablet baclofen 20 mg PO BID 01/31/19 01/31/19 History citalopram [Celexa] 40 mg PO QAM 01/31/19 01/31/19 History clonidine HCl 0.3 mg PO BID 01/31/19 01/31/19 History cyanocobalamin (vitamin B-12) 0 mcg PO QAM 01/31/19 01/31/19 History [Vitamin B-12] gabapentin 600 mg PO TID 01/31/19 01/31/19 History ibuprofen [Advil] 800 mg PO Q4H 01/31/19 01/31/19 History ipratropium-albuterol [Combivent 2 puff INHALATION QAM 01/31/19 01/31/19 History Respimat] sennosides-docusate sodium 1 tab PO HS PRN 01/31/19 01/31/19 History [Senna-S] fxls-neuy-fyh-jez-wwy-csvd-hor 1 tab PO QAM 01/31/19 01/31/19 History [Tumersaid] Past Med/Surg History Medical History COPD (chronic obstructive pulmonary disease) (Chronic) Spinal stenosis (Chronic) GERD (gastroesophageal reflux disease) (Chronic) HTN (hypertension) (Chronic 01/06/15) Mixed anxiety and depressive disorder (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) Parkinson disease (Chronic) Emphysema lung (Chronic) Depression (Chronic) History of cancer of vulva (Chronic) Aneurysm (Chronic) Lumbago (Chronic) Surgical History History of spinal surgery (Chronic) S/P excision of lipoma (Chronic) Status post right knee replacement (Chronic) Family History Other Family history non-contributory Social History Preferred Language: [place] Leonean Communication Ability: Effective Aquatic Ecologist Required: No Beliefs That Will Affect Care: None marital status: / Current Living Situation: Family Current Living Situation Comment: lives with sister current occupational status: disabled Feels Safe at Home: Yes Safety Concerns: Feels Safe At This Time Smoking Status: Former smoker Hx Alcohol Use: No Hx Substance Use: No Review of Systems All systems reviewed & are unremarkable except as noted in HPI & below Physical Exam Vital Signs (Past 24 Hours): Last Vital Signs Temp 36.6 C 01/31/19 16:57 Pulse 56 L 01/31/19 21:21 Resp 18 01/31/19 21:21 BP 176/89 H 01/31/19 21:21 Pulse Ox 95 01/31/19 21:21 Physical Exam: Vitals noted as above and within normal limits with the exception of hypertension. GENERAL: Awake, alert to person, place, and time, nontoxic-appearing, in no distress HENT: Normocephalic, atraumatic. . Mucus membranes appear moist. + TTP on right occipital area, skin in tact. EYES: Normal conjunctiva. Sclera non-icteric. EOMI. PERRLA. NECK: Supple. Full range of motion. No JVD RESPIRATORY: Faint wheezing b/l. Normal work of breathing. CARDIAC: Regular rate, normal rhythm. Extremities warm and well perfused, 2+ radial pulses bilaterally; 2+ posterior tibialis pulses bilaterally. ABDOMEN: Soft, non-distended. No tenderness to palpation in all four quadrants. No rebound or guarding. No masses. Bowel sounds are normal. LOWER EXTREMITIES: Inspection of calves reveal equal size bilaterally. They are non-tender. No edema. No discoloration. NEURO: No focal gross focal motor deficits noted. Sensation in tact. CN II-XII grossly in tact. Finger to nose in tact. SKIN: Rash not present. No jaundice noted. Significant lesions not present. PSYCH: Appropriate mood and affect. Cooperative. Exam as done by Shasta Herrera MD, Microstrategy Architect. Results & Data Laboratory Results 02/01/19 01/31/19 01/31/19 Range/Units 01:08 17:36 17:36 WBC 8.14 (4.8-10.8) K/uL RBC 4.26 (4.2-5.4) M/uL Hgb 13.1 (12.0-16.0) g/dL Hct 40.6 (37-47) % MCV 95.3 (80-100) fL MCH 30.8 (25-34) pg MCHC 32.3 (32-36) g/dL RDW Std Deviation 47.7 H (36.4-46.3) fL RDW Coeff of Ginger 13.7 (11.5-14.5) % Plt Count 232 (130-400) K/uL MPV 9.9 (7.4-10.4) fL Immature Gran % (Auto) 0.2 % Neut % (Auto) 80.1 % Lymph % (Auto) 15.5 % Schley % (Auto) 3.2 % Eos % (Auto) 1.0 % Baso % (Auto) 0.0 % Immature Gran # (Auto) 0.02 (0.00-0.02) K/uL Neut # (Auto) 6.52 H (1.4-6.5) K/uL Lymph # (Auto) 1.26 (1.2-3.4) K/uL Schley # (Auto) 0.26 (0.11-0.59) K/uL Eos # (Auto) 0.08 (0-0.5) K/uL Baso # (Auto) 0.00 (0-0.2) K/uL Sodium 141 (136-145) mmol/L Potassium 3.4 L (3.5-5.1) mmol/L Chloride 107 (98-107) mmol/L Carbon Dioxide 28 (21-32) mmol/L Anion Gap 6.0 (3-11) BUN 15 (7-18) mg/dl Creatinine 0.58 L (0.6-1.2) mg/dl Est Cr Clr Drug Dosing 106.6 ml/min Est GFR ( Amer) 111.3 Est GFR (Non-Af Amer) 96.1 BUN/Creatinine Ratio 25.1 H (10-20) Glucose 105 H (70-99) mg/dl Calcium 8.7 (8.5-10.1) mg/dl Urine Color Yellow Urine Appearance Clear (Clear) Urine pH 5.5 (4.5-7.5) Ur Specific [place] 1.021 (1.000-1.030) Urine Protein Negative (Negative) Urine Glucose (UA) Negative (Negative) Urine Ketones Trace H (Negative) Urine Blood Negative (Negative) Urine Nitrite Negative (Negative) Urine Bilirubin Negative (Negative) Urine Urobilinogen Negative (Negative) Ur Leukocyte Esterase Trace H (Negative) Urine WBC (Auto) 10-30 H (0-5) /hpf Urine RBC (Auto) 0-4 (0-4) /hpf U Hyaline Cast (Auto) 0 (0-5) /lpf U Epithel Cells (Auto) >30 H (0-5) /lpf Urine Bacteria (Auto) Negative (Negative) Ur Renal Epithelial Cell Not Reportable Supervising Physician Co-Signing Physician Notes Patient seen and examined, chart reviewed, case discussed with Dr. Herrera and I agree with her assessment and plan as documented above. Briefly, patient is a 68yo female with history of COPD, GERD, HTN, Parkinsons, Depression presenting with persistent/progressive occipital pain. Ongoing x 2 years, now severe, wak ing her from sleep. Patient had some workup completed as an outpatient that was nondiagnostic. MRI performed today with new blastic occipital skull lesion. On exam she is afebrile, HD stable, NAD skin: no rash HEENT: NC/AT, tender point on occiput, PERRL, EOMI, MMM, neck supple Heart: +S1/S2, regular, no m/r/g Lungs: CTA, diffuse wheezing Abd: +BS, soft, NT/ND Ext: no edema Labs and images reviewed. Assessment/Plan: 68yo female with persistent headache, new sclerotic lesion present on occipital bone. Ddx to include primary bone tumor vs metastatic disease. Patient is not UTD on her age appropirate cancer screenings. Will obtain PET scan. Remainder of plan as above Resident Activity Tracking Resident Involvement: Resident Care Provided Care Provided: Adult Hospital Medicine (1) Headache Headache chronicity pattern: unspecified pattern Headache type: unspecified Intractability: intractable Qualified Code(s): R51 - Headache
--- NOTE | 2019-01-31 21:45 | Emergency Department Note ---
Entered by Dong Abdalla acting as a scribe for History of Present Illness General Chief complaint: Head Pain Stated complaint: PAIN IN BACK OF HEAD Time Seen by Provider: 01/31/19 17:02 Source: patient History of Present Illness Provider complaint: Neck pain Onset (ago): month(s) (Last couple months) Location: neck Radiation: other (Head) Severity: similar to prior episodes Pain Consistency: + constant and + other (Worsening) Maximum Pain Intensity: 10 Current Pain Intensity: 10 Relieved By: + none Associated symptoms: + fever/chills (No fever) and + other (urinary incontinence ); no rash The patient is a 68 year old female who presents to the Emergency Room with complaints of worsening posterior neck pain that has been present for the past couple of months. She rates the pain as a 10/10 and it radiates up to her head. The pain makes it uncomfortable to lay in certain positions and nothing seems to relieve the pain. She has been taking 4 Advil every 4 hours and has been using a muscle relaxer, both of which have not helped. The patient has had the chills and some urinary incontinence, but denies this feeling like her prior urinary infections. Back in June of 2018, she had a CTA of the head that showed no aneurysms or bleeding. She also has had a C spine CT done in September of 2018 which only showed arthritis. Prior to her visit today, she has been told it is a pinched nerve and has been seeing pain management. She has a history of 2 strokes. Home Medications Home Medications Medication Instructions Recorded Confirmed Type amlodipine 5 mg PO QAM 08/07/18 01/31/19 History carbidopa-levodopa [Sinemet] See Rx Instructions .ROUTE .COMPLEX 08/07/18 01/31/19 History clonazepam [Klonopin] 0.5 mg PO HS PRN 08/07/18 01/31/19 History fluticasone [Flonase Allergy 2 spray INTRANASAL DAILY PRN 08/07/18 01/31/19 History Relief] hydrochlorothiazide 25 mg PO QAM 08/07/18 01/31/19 History lamotrigine [Lamictal] 50 mg PO HS 08/07/18 01/31/19 History lisinopril 20 mg PO QAM 08/07/18 01/31/19 History omeprazole 20 mg PO QAM 08/07/18 01/31/19 History thiamine HCl (vitamin B1) 100 mg 100 mg PO QAM 11/23/18 01/31/19 History tablet baclofen 20 mg PO BID 01/31/19 01/31/19 History citalopram [Celexa] 40 mg PO QAM 01/31/19 01/31/19 History clonidine HCl 0.3 mg PO BID 01/31/19 01/31/19 History cyanocobalamin (vitamin B-12) 0 mcg PO QAM 01/31/19 01/31/19 History [Vitamin B-12] gabapentin 600 mg PO TID 01/31/19 01/31/19 History ibuprofen [Advil] 800 mg PO Q4H 01/31/19 01/31/19 History ipratropium-albuterol [Combivent 2 puff INHALATION QAM 01/31/19 01/31/19 History Respimat] sennosides-docusate sodium 1 tab PO HS PRN 01/31/19 01/31/19 History [Senna-S] mxjp-nteo-vwi-hir-ycr-fckj-hor 1 tab PO QAM 01/31/19 01/31/19 History [Tumersaid] Allergies Allergy/AdvReac Type Severity Reaction Status Date / Time nicotine Allergy Intermediate skin Verified 01/31/19 18:16 irritation bee venom protein (honey bee) Allergy Unknown "I PASS Verified 01/31/19 18:16 OUT." bupropion Allergy Unknown unknown Verified 01/31/19 18:16 codeine Allergy Unknown unknown - Verified 01/31/19 18:16 TOLERATES PERCOCET Sulfa (Sulfonamide Allergy Unknown . Verified 01/31/19 18:16 Antibiotics) Past Med/Surg History Medical History COPD (chronic obstructive pulmonary disease) (Chronic) Spinal stenosis (Chronic) GERD (gastroesophageal reflux disease) (Chronic) HTN (hypertension) (Chronic 01/06/15) Mixed anxiety and depressive disorder (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) Parkinson disease (Chronic) Emphysema lung (Chronic) Depression (Chronic) History of cancer of vulva (Chronic) Aneurysm (Chronic) Lumbago (Chronic) Surgical History History of spinal surgery (Chronic) S/P excision of lipoma (Chronic) Status post right knee replacement (Chronic) Family History Other Family history non-contributory Social History Preferred Language: [place] Communication Ability: Effective Visual Impairment: Limited Hearing Ability: Normal Beliefs That Will Affect Care: None marital status: / Current Living Situation: Family current occupational status: disabled Feels Safe at Home: Yes Smoking Status: Current every day smoker Hx Alcohol Use: No Hx Substance Use: No Review of Systems See HPI for pertinent positives & negatives. and A total of 10 systems reviewed and were otherwise negative Physical Exam Vital Signs Vital Signs - 24 hr 01/31/19 16:57 01/31/19 19:44 01/31/19 21:21 Temperature 36.6 C Temperature Source Oral Sepsis Recent Fever Within 48 Hours No Sepsis Action Taken by Nursing No Action Required Pulse Rate 82 Pulse Rate [Right Finger] 83 56 L Respiratory Rate 20 18 18 Respiratory Effort / Characteristics Non-Labored Spontaneous Non-Labored Spontaneous Respiratory Depth Normal Normal Normal Respiratory Pattern Regular Blood Pressure 165/84 H Blood Pressure [Right Arm] 157/89 H 176/89 H Blood Pressure Mean 111 Blood Pressure Mean [Right Arm] 111 118 Pulse Oximetry 95 93 95 Oxygen Delivery Method Room Air Room Air Room Air GENERAL: Patient is in no acute distress. HEENT: No acute trauma, normocephalic atraumatic, mucous membranes moist, no nasal congestion, no scleral icterus. Tender to the right posterior occipital scalp with no erythema or hematoma. NECK: No stridor, no adenopathy, no meningismus, trachea is midline. LUNGS: Clear to auscultation bilaterally, no wheeze, no rhonchi, breath sounds equal. HEART: Without murmurs gallops or rubs, regular rate and rhythm. ABDOMEN: Soft, nontender, bowel sounds positive, no hernias, no peritonitis. EXTREMITIES: No cyanosis or edema, full range of motion of all the joints with out pain or difficulty, no signs for acute trauma. NEUROLOGIC: Oriented x 3, no acute motor or sensory deficits, no focal weakness. SKIN: No rash, no jaundice, no diaphoresis. Course 1710: Past medical records reviewed. The patient was evaluated in room A03, and a complete history and physical examination were performed. 2102: I spoke to Dr. Georgi Ramirez about the patient's case and he recommended an oncology work up. 2109: I reevaluated the patient and updated them on results. She agreed with the treatment plan. The [facility] hospitalist was paged. 2117: I spoke to Dr. Ibanez - [facility] Hospitalist about the patient's case and she is going to accept her for further evaluation. Consultations Consultation #1: I spoke to Dr. Georgi Ramirez about the patient's case and he recommended an oncology work up. Time: 21:03 Consultation #2: I spoke to Dr. Ibanez - [facility] Hospitalist about the patient's case and she is going to accept her for further evaluation. Time: :18 Administered Medications Discontinued Medications Diphenhydramine HCl (Benadryl) 50 mg IV NOW STA Stop: 01/31/19 17:26 Last Admin: 01/31/19 17:42 Dose: Not Given Documented by: [id number] Sodium Chloride (Nss 1000ml) 1,000 mls @ 999 mls/hr IV .Q1H1M ONE Stop: 01/31/19 18:25 Last Infusion: 01/31/19 20:01 Dose: 0 mls/hr Documented by: [id number] Admin: 01/31/19 17:44 Dose: 999 mls/hr Documented by: [id number] Morphine Sulfate (Morphine Sulfate) 4 mg IV NOW STA Stop: 01/31/19 17:26 Last Admin: 01/31/19 17:45 Dose: 4 mg Documented by: [id number] Medical Decision Making Differential Diagnosis Differential Diagnoses: Hematoma, intracranial bleeding, cellulitis, abscess, infection, occipital neuralgia, nerve impingement, skull fracture, and UTI, amongst others. Medical Records Attestation: I reviewed the patient's medical records. Home Medications Current Medication List: was personally reviewed by me Laboratory Data Attestation: I reviewed the patient's lab results. Result diagrams: 01/31/19 17:36 01/31/19 17:36 Lab Results 01/31/19 01/31/19 Range/Units 17:36 17:36 WBC 8.14 (4.8-10.8) K/uL RBC 4.26 (4.2-5.4) M/uL Hgb 13.1 (12.0-16.0) g/dL Hct 40.6 (37-47) % MCV 95.3 (80-100) fL MCH 30.8 (25-34) pg MCHC 32.3 (32-36) g/dL RDW Std Deviation 47.7 H (36.4-46.3) fL RDW Coeff of Ginger 13.7 (11.5-14.5) % Plt Count 232 (130-400) K/uL MPV 9.9 (7.4-10.4) fL Immature Gran % (Auto) 0.2 % Neut % (Auto) 80.1 % Lymph % (Auto) 15.5 % [place] % (Auto) 3.2 % Eos % (Auto) 1.0 % Baso % (Auto) 0.0 % Immature Gran # (Auto) 0.02 (0.00-0.02) K/uL Neut # (Auto) 6.52 H (1.4-6.5) K/uL Lymph # (Auto) 1.26 (1.2-3.4) K/uL [place] # (Auto) 0.26 (0.11-0.59) K/uL Eos # (Auto) 0.08 (0-0.5) K/uL Baso # (Auto) 0.00 (0-0.2) K/uL Sodium 141 (136-145) mmol/L Potassium 3.4 L (3.5-5.1) mmol/L Chloride 107 (98-107) mmol/L Carbon Dioxide 28 (21-32) mmol/L Anion Gap 6.0 (3-11) BUN 15 (7-18) mg/dl Creatinine 0.58 L (0.6-1.2) mg/dl Est Cr Clr Drug Dosing 106.6 ml/min Est GFR ( Amer) 111.3 Est GFR (Non-Af Amer) 96.1 BUN/Creatinine Ratio 25.1 H (10-20) Glucose 105 H (70-99) mg/dl Calcium 8.7 (8.5-10.1) mg/dl Imaging Data Radiologist's Impression: Radiology results as stated below per my review and the radiologist's interpretation: MRI OF THE BRAIN WITHOUT CONTRAST CLINICAL HISTORY: WORSENING POSTERIOR HEADACHE. COMPARISON STUDY: CT scan dated 08/07/2018, MRI the brain dated October [id number] FINDINGS: Sagittal T1, axial diffusion, proton density and T2 weighted axial, coronal FLAIR, and axial T1-weighted images were acquired. No intra or extra-axial mass lesions are visualized Axial diffusion-weighted images reveal no evidence of acute or subacute infarction. There is no evidence of ventricular dilatation. Proton density T2-weighted and FLAIR images reveal minimal foci of increased T2 signal within the white matter, likely on a small vessel basis. There are no abnormal flow voids. There is anterior calvarial thickening. This remains unchanged. There is a 17 mm focus of marrow replacement involving the right occipital bone. This demonstrates increased signal on axial diffusion-weighted images. This lesion was not visualized on the prior IMPRESSION: 1. No evidence of acute or subacute infarction 2. No evidence of intracranial mass on this noncontrast study 3. Stable anterior calvarial thickening 4. Interval development of a 17 mm indeterminate focus of marrow replacement involving the right occipital bone. This is of relatively low signal on T1 and T2 weighted images. This lesion is of increased signal on axial diffusion- weighted images. In retrospect, there is a probable corresponding subtle calvarial sclerotic lesion on the prior CT scan performed July 2018. Likely diagnostic considerations include osteoma, fibrous dysplasia, or osteoblastic metastasis. Electronically signed by: Rich Wallace M.D. 01/31/2019 8:55 PM Blood Pressure Blood Pressure Findings: Elevated blood pressure Blood Pressure Disposition: further management by hospitalist COLT Narrative There is no leukocytosis or concerning anemia. No significant electrolyte abnormality or kidney failure. The patient was not febrile or toxic. There was no meningismus. She was tender over the right posterior scalp in the occipital region of the scalp. There was no erythema or fluctuance. No drainage. No ra sh. A brain MRI was done. There is a sclerotic lesion in the exact area where she has pain, there was concern for a metastatic lesion. The patient received IV saline, she was given IV morphine and IV Benadryl, she is resting more comfortably. I spoke with neurology, the patient needs a workup for malignancy. The patient was in favor of being hospitalized for this workup. This seems reasonable as she has had issues now for several months. I did speak to the patient at length as well as case management. The on-call hospitalist was consulted. Impression & Plan Headache, Uncontrolled pain, Failure of outpatient treatment, Skull lesion Discharge Plan Visit Data Chief Complaint: Head Pain Stated Complaint: PAIN IN BACK OF HEAD ED Provider: Casey Costa Discharge Problem: Headache, Uncontrolled pain, Failure of outpatient treatment, Skull lesion Patient Disposition: Being Evaluated by Hospitalist Forms Stand Alone Forms: My [facility] Prescriptions Prescriptions: No Action thiamine HCl (vitamin B1) 100 mg tablet 100 mg PO QAM RF: 0 carbidopa-levodopa [Sinemet] 25-250 mg Tablet See Rx Instructions .ROUTE .COMPLEX RF: 0 lisinopril 20 mg Tablet 20 mg PO QAM RF: 0 clonazepam [Klonopin] 0.5 mg Tablet 0.5 mg PO HS PRN (Reason: Anxiety) RF: 0 amlodipine 5 mg Tablet 5 mg PO QAM RF: 0 lamotrigine [Lamictal] 25 mg Tablet 50 mg PO HS RF: 0 omeprazole 20 mg Capsule,Delayed Release(Dr/Ec) 20 mg PO QAM RF: 0 hydrochlorothiazide 25 mg Tablet 25 mg PO QAM RF: 0 fluticasone [Flonase Allergy Relief] 50 mcg/actuation [place],Suspension 2 spray INTRANASAL DAILY PRN (Reason: Congestion) RF: 0 gabapentin 600 mg tablet 600 mg PO TID RF: 0 citalopram [Celexa] 40 mg Tablet 40 mg PO QAM RF: 0 sennosides-docusate sodium [Senna-S] 8.6-50 mg Tablet 1 tab PO HS PRN (Reason: Constipation) RF: 0 clonidine HCl 0.3 mg tablet 0.3 mg PO BID RF: 0 Combivent Respimat 20-100 mcg/actuation Mist 2 puff INHALATION QAM RF: 0 cyanocobalamin (vitamin B-12) [Vitamin B-12] 1,000 mcg Tablet PO QAM RF: 0 baclofen 10 mg tablet 20 mg PO BID RF: 0 ibuprofen [Advil] 200 mg Tablet 800 mg PO Q4H RF: 0 [place] [phone] mg Tablet 1 tab PO QAM RF: 0 Referrals Referrals: Jennifer Kirkpatrick CRNP [Primary Care Provider] - Discharge Problem: Headache Qualifiers: Headache type: unspecified Headache chronicity pattern: unspecified pattern Intractability: intractable Qualified Code(s): R51 - Headache The scribe's documentation has been prepared under my direction and personally reviewed by me in its entirety. I confirm that the note above accurately reflects all work, treatment, procedures, and medical decision making performed by me.
[2019-02-01] MEDS ORDERED: NALOXONE HCL 0.4 MG/1 ML VIAL/CARP ONE (00:19)
[2019-02-01] MEDS ORDERED: ACETAMINOPHEN 325 MG TAB PO PRN (00:32)
[2019-02-01] MEDS ORDERED: POLYETHYLENE (MIRALAX) 17 GM PACK PO PRN (00:32)
[2019-02-01] MEDS ORDERED: ALUMINUM/MAGNESIUM SUSP 30 ML UDC PO PRN (00:32)
[2019-02-01] MEDS ORDERED: MAGNESIUM HYDROXIDE SUSP 30 ML UDC PO PRN (00:32)
[2019-02-01] MEDS ORDERED: DOCUSATE SODIUM/SENNA 50/8.6MG TAB PO PRN (00:32)
[2019-02-01] MEDS ORDERED: ONDANSETRON INJ 2 MG/ML 2 ML VIAL IV PRN (00:32)
[2019-02-01] MEDS ORDERED: HYDROmorphone INJ 2 MG/ML SYR/VIAL IV PRN (00:32)
[2019-02-01] MEDS ORDERED: clonazePAM 0.5 MG TAB PO PRN (00:32)
[2019-02-01] MEDS ORDERED: FLUTICASONE PROPIONATE NA SPR 16 GM BTL PRN (00:32)
[2019-02-01] MEDS ORDERED: HYDROmorphone INJ 0.5 MG/0.5 ML SYR IV PRN (00:53)
[2019-02-01 01:22] LABS: Appearance Urine Clear (Clear); Bacteria Urine Automated Negative (Negative); Bilirubin Urine Negative (Negative); Blood Urine Negative (Negative); Cast Urine Automated 0 /lpf (0-5); Color Urine Yellow; Epithelial Cell Urine Auto >30 /lpf (0-5); Glucose Urine UA Negative (Negative); Ketones Urine Trace (Negative); Leukocyte Esterase Urine Trace (Negative); Nitrite Urine Negative (Negative); Protein Urine Negative (Negative); RBC Urine Automated 0-4 /hpf (0-4); Specific Gravity Urine 1.021 (1.000-1.030); Urobilinogen Urine Negative (Negative); pH Urine 5.5 (4.5-7.5)
[2019-02-01] MEDS: KETOROLAC TROMETHAMINE 15 MG/ML VIAL IV PRN ×2 (01:24→07:51)
[2019-02-01] MEDS: PHENAZOPYRIDINE HCL 100 MG TAB PO PRN ×2 (01:41→10:07)
[2019-02-01] MEDS: BACLOFEN 10 MG TAB PO SCH ×3 (01:41→20:28)
[2019-02-01] MEDS: CARBIDOPA/LEVODOPA 25-250 1 EA TAB PO SCH ×8 (01:41→22:46)
[2019-02-01] MEDS: PANTOprazole 40 MG TAB PO SCH (07:42)
[2019-02-01] MEDS: GABAPENTIN 600 MG TAB PO SCH ×3 (07:46→20:27)
[2019-02-01] MEDS: LISINOPRIL 20 MG TAB PO SCH (07:47)
[2019-02-01] MEDS: THIAMINE HCL 100 MG TAB PO SCH (07:47)
[2019-02-01] MEDS: CITALOPRAM 40 MG TAB PO SCH (07:47)
[2019-02-01 07:48] LABS: Albumin Level 3.4 gm/dl (3.4-5.0); BUN Creatinine Ratio 25.6 (10-20); Calcium 8.3 mg/dl (8.5-10.1); Creatinine Clr Calc Pharmacy 114.5 ml/min; Est GFR (Non-African American) 98.3; Potassium 3.5 mmol/L (3.5-5.1)
[2019-02-01] MEDS: AMLODIPINE BESYLATE 5 MG TAB PO SCH (07:48)
[2019-02-01] MEDS: hydroCHLOROthiazide 25 MG TAB PO SCH (07:48)
[2019-02-01] MEDS: IPRATROPIUM BROMIDE/ALBUTEROL respimat INH INH SCH (07:49)
[2019-02-01 07:57] LABS: Albumin Globulin Ratio 1.1 (0.9-2); Bilirubin,Total 0.3 mg/dl (0.2-1); Globulin 3.2 gm/dl (2.5-4.0); Total Protein 6.6 gm/dl (6.4-8.2)
[2019-02-01] MEDS ORDERED: INFLUENZA ADMINISTRATION CHARGE ONE (08:00)
[2019-02-01] MEDS ORDERED: INFLUENZA VACCINE HIGH DOSE 65+ 0.5 ML SYR IM ONE (08:00)
[2019-02-01] MEDS: KETOROLAC 30 MG/ML VIAL IV PRN ×2 (14:02→20:35)
--- NOTE | 2019-02-01 16:55 | Hospitalist Progress Note ---
Date of Service February 01, 2019 Assessment & Plan (1) Skull lesion: 68-year-old female who presents with intractable headache. She has had this headache in the occipital area of her head she says for at least 2 years now. It is worsened in the last few months. It awakens her from sleep. She has been seen by neurology for this and is also for her parkinsonism. She was ordered a brain MRI in the outpatient setting in December but did not follow-up with this. She says because she is due to pain management appointments that were conflicting. In the ED she received a brain MRI which shows interval development of a 17 mm indeterminate focus of marrow replacement in the right occipital bone suspicious for osteoblastic metastasis. She was treated with 4 mg IV morphine and fluids. Later when she got to the floor she became unresponsive and was snoring loudly. She was a code purple. She was assessed and given a total of 0.6 mg of Narcan with spontaneous recovery of consciousness. -Brain MRI suspicious for osteoblastic lesion. bone scan today again shows suspicious lesion, metastatic lesion is diagnosis of exclusion will get further imaging tomorrow to look for primary lesion -Significant risk factors include age, smoking history, not up-to-date with cancer screenings including Paps, mammography, colonoscopy. oncology consulted (2) Headache: moderate pain over right occipital region does not radiate limited pain control options due to going unresponsive and requiring Narcan on Morphine and Dilaudid (3) Uncontrolled pain: Code purple after 4 mg IV morphine in the ED, reversed with Narcan. - no opiate for now -IV Toradol as needed -Continue home baclofen, gabapentin 600 3 times daily. was seeing pain management outpatient, she did not like the provider, hold on consult for now (4) COPD (chronic obstructive pulmonary disease): No known formal diagnosis of COPD. Continue home Combivent Respimat. -No acute issues. -Continuous pulse ox (5) GERD (gastroesophageal reflux disease): Continue home omeprazole (6) HTN (hypertension): continue home amlodipine 5 mg every morning, clonidine 0.3 twice daily, hydrochlorothiazide 25 every morning, lisinopril 20 mg daily. (7) Mixed anxiety and depressive disorder: Sees outpatient psychiatry once a month. No acute issues. -Continue home Celexa 40 mg, Klonopin 0.5 mg at bedtime as needed, Lamictal 50 mg at bedtime. (8) Parkinson disease: Continue home Sinemet 1 tablet by mouth 7 times daily. (9) History of cancer of vulva: Need to obtain records from Dr. Fulton , as a melanoma would be a likely culprit of metastatic disease. Subjective patient c/o moderate pain in right occipital region, difficult to lay her head back discussed reaction to opiates, weary about trying them again she never responded like that before to her knowledge said she tolerated Ultram as outpatient but it did nothing for the pain confirmed that she is not up to date on cancer screenings (mammogram, colonoscopy) reviewed results of bone scan, again saw uptake in right occipital region, bone met is diagnosis of exclusion some uptake in lower thoracic, lumbar region, no pain in those areas discussed with Dr. Jernigan, appreciate input Review of Systems All systems reviewed & are unremarkable except as noted in HPI & below Constitutional: no fever, no sweats, no fatigue, no weakness and no weight loss pain in right posterior skull, pinpoint area of pain Physical Exam Vital Signs (Past 24 Hours): Last Vital Signs Temp 37.0 C 02/01/19 14:47 Pulse 66 02/01/19 14:47 Resp 16 02/01/19 14:47 BP 156/84 H 02/01/19 14:47 Pulse Ox 93 02/01/19 14:47 Constitutional: WD/WN, vitals as above Eyes: PERRL, conjunctivae normal, anicteric sclerae ENMT: external ear and nose normal, oropharynx normal Neck: trachea midline, no thyromegaly Respiratory: normal respiratory effort, lungs clear to auscultation Cardiovascular: RRR, no murmur, no edema Gastrointestinal (Abdomen): normal bowel sounds, soft, nontender, no hepatosplenomegaly Musculoskeletal: no cyanosis or clubbing, extremities motor strength 5/5 tender area in right occipital region, about an inch in diameter, pain does not radiate on palpation Skin: no rashes, warm and dry Neurologic: patellar DTR's 2+ bilat, sensation intact and PERRL, EOMI, accommodation nl, no face palsy, no dysarthria Psychiatric: A+Ox3, euthymic affect Lymphatic: no cervical or axillary lymphadenopathy Results & Data Laboratory Results Laboratory Results - last 24 hr 01/31/19 01/31/19 02/01/19 17:36 17:36 01:08 WBC 8.14 RBC 4.26 Hgb 13.1 Hct 40.6 MCV 95.3 MCH 30.8 MCHC 32.3 RDW Std Deviation 47.7 H RDW Coeff of Ginger 13.7 Plt Count 232 MPV 9.9 Immature Gran % (Auto) 0.2 Neut % (Auto) 80.1 Lymph % (Auto) 15.5 [place] % (Auto) 3.2 Eos % (Auto) 1.0 Baso % (Auto) 0.0 Immature Gran # (Auto) 0.02 Neut # (Auto) 6.52 H Lymph # (Auto) 1.26 [place] # (Auto) 0.26 Eos # (Auto) 0.08 Baso # (Auto) 0.00 Sodium 141 Potassium 3.4 L Chloride 107 Carbon Dioxide 28 Anion Gap 6.0 BUN 15 Creatinine 0.58 L Est Cr Clr Drug Dosing 106.6 Est GFR ( Amer) 111.3 Est GFR (Non-Af Amer) 96.1 BUN/Creatinine Ratio 25.1 H Glucose 105 H Calcium 8.7 Total Bilirubin AST ALT Alkaline Phosphatase Total Protein Albumin Globulin Albumin/Globulin Ratio TSH Urine Color Yellow Urine Appearance Clear Urine pH 5.5 Ur Specific [place] 1.021 Urine Protein Negative Urine Glucose (UA) Negative Urine Ketones Trace H Urine Blood Negative Urine Nitrite Negative Urine Bilirubin Negative Urine Urobilinogen Negative Ur Leukocyte Esterase Trace H Urine WBC (Auto) 10-30 H Urine RBC (Auto) 0-4 U Hyaline Cast (Auto) 0 U Epithel Cells (Auto) >30 H Urine Bacteria (Auto) Negative Ur Renal Epithelial Cell Not Reportable 02/01/19 06:57 WBC RBC Hgb Hct MCV MCH MCHC RDW Std Deviation RDW Coeff of Ginger Plt Count MPV Immature Gran % (Auto) Neut % (Auto) Lymph % (Auto) [place] % (Auto) Eos % (Auto) Baso % (Auto) Immature Gran # (Auto) Neut # (Auto) Lymph # (Auto) [place] # (Auto) Eos # (Auto) Baso # (Auto) Sodium 144 Potassium 3.5 Chloride 110 H Carbon Dioxide 29 Anion Gap 5.0 BUN 14 Creatinine 0.54 L Est Cr Clr Drug Dosing 114.5 Est GFR ( Amer) 114.0 Est GFR (Non-Af Amer) 98.3 BUN/Creatinine Ratio 25.6 H Glucose 86 Calcium 8.3 L Total Bilirubin 0.3 AST 7 L ALT 7 L Alkaline Phosphatase 63 Total Protein 6.6 Albumin 3.4 Globulin 3.2 Albumin/Globulin Ratio 1.1 TSH 0.896 Urine Color Urine Appearance Urine pH Ur Specific [place] Urine Protein Urine Glucose (UA) Urine Ketones Urine Blood Urine Nitrite Urine Bilirubin Urine Urobilinogen Ur Leukocyte Esterase Urine WBC (Auto) Urine RBC (Auto) U Hyaline Cast (Auto) U Epithel Cells (Auto) Urine Bacteria (Auto) Ur Renal Epithelial Cell Diagnostic Findings NM BONE SCAN IMPRESSION: 1. Focal area of intense radiotracer uptake of the right occipital calvarium correlates with the bone lesion seen on comparison MRI. Although this is nonspecific, metastasis from unknown primary is the diagnosis of exclusion. 2. Moderate tracer uptake about the midthoracic and lumbar spine as above may be on a degenerative basis with underlying bony metastasis also within the differential. Follow-up radiographs of the spine recommended to further characterize. Medications Administered Current Inpatient Medications Acetaminophen (Tylenol) 650 mg PO Q4H PRN PRN Reason: pain/fever Stop: 03/03/19 00:31 Al Hydrox/Mg Hydrox/Simethicone (Maalox) 30 ml PO Q6H PRN PRN Reason: Dyspepsia Stop: 03/03/19 00:31 Albuterol (Combivent Respimat) 2 puffs INH QAM [facility] Stop: 03/03/19 08:59 Last Admin: 02/01/19 07:49 Dose: Not Given Documented by: Amlodipine Besylate (Norvasc) 5 mg PO QAM [facility] Stop: 03/03/19 08:59 Last Admin: 02/01/19 07:48 Dose: 5 mg Documented by: Baclofen (Lioresal) 20 mg PO BID [facility] Stop: 03/03/19 00:31 Last Admin: 02/01/19 07:46 Dose: 20 mg Documented by: Carbidopa/Levodopa (Sinemet 25/250mg) 1 tab PO 0500,0800,1100,1400 [facility] Stop: 03/03/19 00:59 Last Admin: 02/01/19 13:37 Dose: 1 tab Documented by: Carbidopa/Levodopa (Sinemet 25/250mg) 1 tab PO 1700,2000,2300 [facility] Stop: 03/03/19 16:59 [facility]op[facility]) [facility] Stop: 03/03/19 08:59 Last Admin: 02/01/19 07:47 Dose: 40 mg Documented by: Clonazepam (Klonopin) 0.5 mg PO HS PRN PRN Reason: Anxiety Stop: 03/03/19 00:31 Clonidine HCl (Catapress) 0.3 mg PO BID [facility] Stop: 03/03/19 00:31 Last Admin: 02/01/19 07:46 Dose: 0.3 mg Documented by: Fluticasone Propionate (Flonase) 2 sprays NA DAILY PRN PRN Reason: Congestion Stop: 03/03/19 00:31 Gabapentin (Neurontin) 600 mg PO TID [facility] Stop: 03/03/19 08:59 Last Admin: 02/01/19 13:37 Dose: 600 mg Documented by: Hydrochlorothiazide (Hctz) 25 mg PO [facility] Stop: 03/03/19 08:59 Last Admin: 02/01/19 07:48 Dose: 25 mg Documented by: Ketorolac Tromethamine (Toradol) 30 mg IV Q6H PRN PRN Reason: Pain Stop: 02/06/19 00:31 Last Admin: 02/01/19 14:02 Dose: 30 mg Documented by: Lamotrigine (Lamictal) 50 mg PO HS [facility] Stop: 03/03/19 20:59 Lisinopril (Zestril) [facility] Stop: 03/03/19 08:59 Last Admin: 02/01/19 07:47 Dose: 20 mg Documented by: Magnesium Hydroxide (Milk Of Magnesia) 30 ml PO Q6H PRN PRN Reason: Constipation Stop: 03/03/19 00:31 Ondansetron HCl (Zofran) 4 mg IV Q6H PRN PRN Reason: Nausea Stop: 03/03/19 00:31 Last Admin: 02/01/19 09:55 Dose: 4 mg Documented by: Pantoprazole Sodium (Protonix) [facility] Stop: 03/03/19 08:59 Last Admin: 02/01/19 07:42 Dose: 40 mg Documented by: Phenazopyridine HCl (Pyridium) 100 mg PO TID PRN PRN Reason: Dysuria Stop: 03/03/19 01:11 Last Admin: 02/01/19 10:07 Dose: 100 mg Documented by: Polyethylene Glycol (Miralax Powder Packet) 17 gm PO DAILY PRN PRN Reason: Constipation Stop: 03/03/19 00:31 Senna/Docusate Sodium (Senokot S) 1 tab PO HS PRN PRN Reason: Constipation Stop: 03/03/19 00:31 Thiamine HCl (Vitamin B-1) 100 mg PO QAM [facility] Stop: 03/03/19 08:59 Last Admin: 02/01/19 07:47 Dose: 100 mg Documented by: (1) Headache Headache chronicity pattern: unspecified pattern Headache type: unspecified Intractability: intractable Qualified Code(s): R51 - Headache
--- NOTE | 2019-02-01 19:21 | Nuclear Medicine Report ---
NM bone scan whole body HISTORY: 68 years-old Female Possible osteoblastic lesion in skull, work up workup of a indeterminat e right occipital calvarial lesion COMPARISON: MRI the brain 01/31/2019 and 01/06/2011, CT head 08/07/2018, CT abdomen and pelvis 12/04/2017 , chest CT 06/01/2017 TECHNIQUE: Anterior and posterior whole-body planar bone scan scintigraphic images were obtained util izing 26.5 mCi technetium 99 MDP administered via the right upper extremity. Scan images were obtaine d 3 hours post injection. FINDINGS: There is a focal round area of intense radiotracer uptake about the right occipital calvarium correla ting with the bone lesion seen on comparison MRI. Additionally, areas of moderately increased tracer activity noted about the T6, T7 and T8 vertebral bodies and to lesser extent at L2 and L3. Physiologi c tracer activity noted about the soft tissues, kidneys and urinary bladder. Moderate tracer uptake about the left midfoot and left knee, bilateral wrists and elbows, likely on a degenerative basis. Right knee total joint arthroplasty with reactive peripheral uptake, notably wit hin the tibia. IMPRESSION: 1. Focal area of intense radiotracer uptake of the right occipital calvarium correlates with the bone lesion seen on comparison MRI. Although this is nonspecific, metastasis from unknown primary is the diagnosis of exclusion. 2. Moderate tracer uptake about the midthoracic and lumbar spine as above may be on a degenerative ba sis with underlying bony metastasis also within the differential. Follow-up radiographs of the spine recommended to further characterize. The above report was generated using voice recognition software. It may contain grammatical, syntax o r spelling errors. Electronically signed by: Miky Chaudhari M.D. 02/01/2019 7:19 PM
[2019-02-01] MEDS: lamoTRIgine 25 MG TAB PO SCH (20:29)
[2019-02-02] MEDS: PHENAZOPYRIDINE HCL 100 MG TAB PO PRN (03:47)
[2019-02-02] MEDS: CARBIDOPA/LEVODOPA 25-250 1 EA TAB PO SCH ×7 (04:56→22:47)
[2019-02-02] MEDS: hydroCHLOROthiazide 25 MG TAB PO SCH (07:50)
[2019-02-02] MEDS: PANTOprazole 40 MG TAB PO SCH (07:50)
[2019-02-02] MEDS: GABAPENTIN 600 MG TAB PO SCH ×3 (07:50→20:15)
[2019-02-02] MEDS: CITALOPRAM 40 MG TAB PO SCH (07:51)
[2019-02-02] MEDS: BACLOFEN 10 MG TAB PO SCH ×2 (07:51→20:15)
[2019-02-02] MEDS: THIAMINE HCL 100 MG TAB PO SCH (07:51)
[2019-02-02] MEDS: LISINOPRIL 20 MG TAB PO SCH (07:51)
[2019-02-02] MEDS: AMLODIPINE BESYLATE 5 MG TAB PO SCH (07:52)
[2019-02-02] MEDS: IPRATROPIUM BROMIDE/ALBUTEROL respimat INH INH SCH (07:55)
[2019-02-02] MEDS: KETOROLAC 30 MG/ML VIAL IV PRN ×3 (07:57→21:56)
--- NOTE | 2019-02-02 08:32 | Oncology Consultation ---
Date of Consultation February 02, 2019 Assessment & Plan (1) Skull lesion: The appearance of the skull lesion is blastic, which is somewhat unusual for a metastasis. However, no such abnormality was seen on CT in July, so this lesion appears to be new. It is very unlikely to be a myeloma, as these are generally lytic. The increased uptake on bone scan is non-specific, but is concerning for metastatic disease. I would conduct a workup for a primary cancer, including a CT CAP, mammogram, and colonoscopy. 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 Her pain seems more likely to be related to a nerve root issue, possibly related to her extensive degenerative changes, particularly in light of the radiation up her skull. I might consider evaluation of her neck and pain management consultation regarding this issue. Present on Admission?: Yes History of Present Illness Reason for Consultation: Cranial lesion Attending Physician: Jerry Dailey, DO History of Present Illness Ms. 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 She has intermittently sought care with physicians in recent years and openly admits to avoiding seeing doctors when she is scared of the outcomes of tests. She came to the ER on Friday with severe pain in the back of her head. The pain is most intense in the right occipital region, but it also radiates up her to her forehead on that side. She does not recall any particular trauma to that area. She finds that she is very tender at a spot overlying her right occipital skull, though she denies any masses or skin changes. She reports a number of other symptoms, including fatigue, dizziness, falls, and weakness, but denies any focal pain elsewhere beside her head. She has not had a mammogram, pap smear, or colonoscopy in many years. She denies any stool changes, hematochezia, melena, breast masses, vaginal bleeding, or pelvic pain. Allergies Allergy/AdvReac Type Severity Reaction Status Date / Time nicotine Allergy Intermediate skin Verified 01/31/19 18:16 irritation bee venom protein (honey bee) Allergy Unknown "I PASS Verified 01/31/19 18:16 OUT." bupropion Allergy Unknown unknown Verified 01/31/19 18:16 codeine Allergy Unknown unknown - Verified 01/31/19 18:16 TOLERATES PERCOCET Sulfa (Sulfonamide Allergy Unknown . Verified 01/31/19 18:16 Antibiotics) hydromorphone [From Dilaudid] AdvReac Unresponsiv Verified 02/01/19 03:28 e morphine AdvReac Unresponsiv Verified 02/01/19 03:28 e Home Medications Home Medications Medication Instructions Recorded Confirmed Type amlodipine 5 mg PO QAM 08/07/18 01/31/19 History carbidopa-levodopa [Sinemet] See Rx Instructions .ROUTE .COMPLEX 08/07/18 01/31/19 History clonazepam [Klonopin] 0.5 mg PO HS PRN 08/07/18 01/31/19 History fluticasone propionate [Flonase 2 spray INTRANASAL DAILY PRN 08/07/18 01/31/19 History Allergy Relief] hydrochlorothiazide 25 mg PO QAM 08/07/18 01/31/19 History lamotrigine [Lamictal] 50 mg PO HS 08/07/18 01/31/19 History lisinopril 20 mg PO QAM 08/07/18 01/31/19 History omeprazole 20 mg PO QAM 08/07/18 01/31/19 History thiamine HCl (vitamin B1) 100 mg 100 mg PO QAM 11/23/18 01/31/19 History tablet baclofen 20 mg PO BID 01/31/19 01/31/19 History citalopram [Celexa] 40 mg PO QAM 01/31/19 01/31/19 History clonidine HCl 0.3 mg PO BID 01/31/19 01/31/19 History cyanocobalamin (vitamin B-12) 0 mcg PO QAM 01/31/19 01/31/19 History [Vitamin B-12] gabapentin 600 mg PO TID 01/31/19 01/31/19 History ibuprofen [Advil] 800 mg PO Q4H 01/31/19 01/31/19 History ipratropium-albuterol [Combivent 2 puff INHALATION QAM 01/31/19 01/31/19 History Respimat] sennosides-docusate sodium 1 tab PO HS PRN 01/31/19 01/31/19 History [Senna-S] rhhp-[id number]-njd-smk-wez-pldf-hor 1 tab PO QAM 01/31/19 01/31/19 History [Tumersaid] Patient History Medical History COPD (chronic obstructive pulmonary disease) (Chronic) Spinal stenosis (Chronic) GERD (gastroesophageal reflux disease) (Chronic) HTN (hypertension) (Chronic 01/06/15) Mixed anxiety and depressive disorder (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) Parkinson disease (Chronic) Emphysema lung (Chronic) Depression (Chronic) History of cancer of vulva (Chronic) Aneurysm (Chronic) Lumbago (Chronic) Surgical History History of spinal surgery (Chronic) S/P excision of lipoma (Chronic) Status post right knee replacement (Chronic) Family History Other Family history non-contributory Social History Communication Ability: Effective Beliefs That Will Affect Care: None marital status: / Current Living Situation: Family Current Living Situation Comment: lives with sister current occupational status: disabled Feels Safe at Home: Yes Safety Concerns: Feels Safe At This Time Smoking Status: Former smoker Hx Alcohol Use: No Hx Substance Use: No Review of Systems Constitutional: + fatigue and + weakness (generalized); no fever, no sweats and no weight loss Eyes: no worsening vision Ear, Nose, Mouth, Throat: no epistaxis and no dysphagia Respiratory: no cough and no dyspnea Cardiovascular: no chest pain, no palpitations and no edema Gastrointestinal: no abdominal pain, no nausea, no change in bowel habits and no blood in stools Genitourinary (Female): no dysuria, no hematuria and no abnormal vaginal bleeding Musculoskeletal: as per Subjective / HPI Integumentary: no rash and no changing lesions Neurologic: as per Subjective / HPI Hematologic / Lymphatic: no easy bleeding and no lymphadenopathy Physical Exam Vital Signs (Past 24 Hours): Last Vital Signs Temp 37.1 C 02/02/19 07:28 Pulse 52 L 02/02/19 07:28 Resp 18 02/02/19 07:28 BP 145/81 H 02/02/19 07:28 Pulse Ox 95 02/02/19 08:05 Constitutional: well nourished; no acute distress and + uncomfortable (due to pain) Eyes: + anicteric sclerae and EOM intact bilaterally ENMT: external ear and nose normal, oropharynx normal Neck: normal visual inspection; neck nontender Respiratory: normal respiratory effort, lungs clear to auscultation Cardiovascular: RRR, no murmur, no edema Gastrointestinal (Abdomen): normal bowel sounds, soft, nontender, no hepatosplenomegaly Musculoskeletal: She has cut her hair over an area of her right posterior scalp. That area is tender to palpation with no obvious masses, deformity, or skin changes. Skin: no rashes, warm and dry Psychiatric: Orientation: alert and oriented x 3 Affect: + anxious affect Lymphatic: no cervical or axillary lymphadenopathy Results & Data Laboratory Results CBC and CMP on admission were largely within normal limits. She has not had any additional labs since. Diagnostic Findings MRI Brain, 01/31/19: IMPRESSION: 1. No evidence of acute or subacute infarction 2. No evidence of intracranial mass on this noncontrast study 3. Stable anterior calvarial thickening 4. Interval development of a 17 mm indeterminate focus of marrow replacement involving the right occipital bone. This is of relatively low signal on T1 and T2 weighted images. This lesion is of increased signal on axial diffusion- weighted images. In retrospect, there is a probable corresponding subtle calvarial sclerotic lesion on the prior CT scan performed July 2018. Likely diagnostic considerations include osteoma, fibrous dysplasia, or osteoblastic metastasis. NM Whole Body Bone Scan, 02/01/19: IMPRESSION: 1. Focal area of intense radiotracer uptake of the right occipital calvarium correlates with the bone lesion seen on comparison MRI. Although this is nonspecific, metastasis from unknown primary is the diagnosis of exclusion. 2. Moderate tracer uptake about the midthoracic and lumbar spine as above may be on a degenerative basis with underlying bony metastasis also within the differential. Follow-up radiographs of the spine recommended to further bud acterize.
[2019-02-02] MEDS ORDERED: IOVERSOL 100ml IV PRN (10:59)
--- NOTE | 2019-02-02 12:08 | CT Scan Report ---
CT chest w con CT DOSE: 1017.94 mGy.cm HISTORY: Bone lesion Eval for primary malignancy, new skull lesion TECHNIQUE: Multiaxial CT images of the chest were performed following the intravenous administration of contrast. A dose lowering technique was utilized adhering to the principles of ALARA. COMPARISON: None. FINDINGS: The lungs are clear. No significant hilar or mediastinal adenopathy. Very subtle blastic changes involving the T6-T7 and T8 vertebral bodies. No additional bony lesion is identified. IMPRESSION: 1. Subtle blastic changes involving T6, T7, and T8. Metastatic disease is not excluded. 2. Study is otherwise negative. The above report was generated using voice recognition software. It may contain grammatical, syntax or spelling errors. Electronically signed by: Dwayne Becker M.D. 02/02/2019 12:06 PM
--- NOTE | 2019-02-02 12:46 | CT Scan Report ---
CT abd pelvis IV con only CT DOSE: HISTORY: Bone lesion Eval for primary malignancy, has skull lesion TECHNIQUE: Multiaxial CT images of the abdomen and pelvis were performed following the use of intrave nous contrast. A dose lowering technique was utilized adhering to the principles of ALARA. COMPARISON STUDY: 12/04/2017 FINDINGS: Lung bases are clear. There is spleen and pancreas are uniform. Gallbladder is negative for distention. The kidneys enhance uniformly. Bowel pattern is nonobstructive. There are findings of scattered colonic diverticuli. There is no onel dence for diverticulitis. There is no significant abdominal pelvic or inguinal margaux pathology. There are findings of posterior laminectomies and fusion from L2 through S1. No lytic or blastic proc ess is appreciated. The bony structures the pelvis show normal mineralization. Sacroiliac joints are symmetric. Small benign hemangioma of the medial right iliac weighing. IMPRESSION: No acute process of the abdomen or pelvis. Minimal incidental findings as noted. The above report was generated using voice recognition software. It may contain grammatical, syntax or spelling errors. Electronically signed by: Dwayne Becker M.D. 02/02/2019 12:44 PM
--- NOTE | 2019-02-02 15:42 | Hospitalist Progress Note ---
Date of Service February 02, 2019 Assessment & Plan (1) Skull lesion: -Brain MRI suspicious for osteoblastic lesion. bone scan 02/01 again showed suspicious lesion, metastatic lesion is diagnosis of exclusion CT chest: showed some small blastic lesion in thoracic spine, she admits to some pain in that region no evidence of primary malignancy in chest CT abdomen/pelvis: no abnormalities will ask Dr. Fulton to see inpatient for possible exam, h/o cancer of vulva without follow up because patient did not go back mammogram, colonoscopy can wait for outpatient setting (2) Headache: moderate pain over right occipital region does not radiate limited pain control options due to going unresponsive and requiring Narcan on Morphine and Dilaudid (3) Uncontrolled pain: Code purple after 4 mg IV morphine in the ED, reversed with Narcan. - no opiate for now -IV Toradol as needed -Continue home baclofen, gabapentin 600 3 times daily. was seeing pain management outpatient, she did not like the provider, hold on consult for now (4) COPD (chronic obstructive pulmonary disease): No known formal diagnosis of COPD. Continue home Combivent Respimat. -No acute issues. -Continuous pulse ox (5) GERD (gastroesophageal reflux disease): Continue home omeprazole (6) HTN (hypertension): continue home amlodipine 5 mg every morning, clonidine 0.3 twice daily, hydrochlorothiazide 25 every morning, lisinopril 20 mg daily. (7) Mixed anxiety and depressive disorder: Sees outpatient psychiatry once a month. No acute issues. -Continue home Celexa 40 mg, Klonopin 0.5 mg at bedtime as needed, Lamictal 50 mg at bedtime. (8) Parkinson disease: Continue home Sinemet 1 tablet by mouth 7 times daily. (9) History of cancer of vulva: again, was 5 years ago, lesion removed lost to follow up, patient was scared to go back, afraid of another lesion Subjective patient still with pain in the head admits to some pain in the mid back discussed results of CT chest and abd/pelvis discussed her prior history of cancer of the vulva lesion was removed by Dr. Fulton about 5 years ago asked her if she followed up, she said she had not seen him since after the surgery she said she was scared that he might find something more she herself has not noticed any lesion on labia, no abnormal bleeding or dischar ge she said she would like Dr. Fulton to see her here in hospital because she trusts him Review of Systems All systems reviewed & are unremarkable except as noted in HPI & below Physical Exam Vital Signs (Past 24 Hours): Last Vital Signs Temp 36.7 C 02/02/19 11:46 Pulse 52 L 02/02/19 11:46 Resp 17 02/02/19 11:46 BP 148/84 H 02/02/19 11:46 Pulse Ox 94 02/02/19 11:46 Constitutional: WD/WN, vitals as above Eyes: PERRL, conjunctivae normal, anicteric sclerae ENMT: external ear and nose normal, oropharynx normal Neck: trachea midline, no thyromegaly Respiratory: normal respiratory effort, lungs clear to auscultation Cardiovascular: RRR, no murmur, no edema Gastrointestinal (Abdomen): normal bowel sounds, soft, nontender, no hepatosplenomegaly Musculoskeletal: no cyanosis or clubbing, extremities motor strength 5/5 Skin: no rashes, warm and dry Neurologic: patellar DTR's 2+ bilat, sensation intact and PERRL, EOMI, accommodation nl, no face palsy, no dysarthria Psychiatric: A+Ox3, euthymic affect Lymphatic: no cervical or axillary lymphadenopathy Results & Data Diagnostic Findings CT chest w con IMPRESSION: 1. Subtle blastic changes involving T6, T7, and T8. Metastatic disease is not excluded. 2. Study is otherwise negative. CT abdomen/pelvis w con IMPRESSION: No acute process of the abdomen or pelvis. Minimal incidental findings as noted. Medications Administered Current Inpatient Medications Acetaminophen (Tylenol) 650 mg PO Q4H PRN PRN Reason: pain/fever Stop: 03/03/19 00:31 Al Hydrox/Mg Hydrox/Simethicone (Maalox) 30 ml PO Q6H PRN PRN Reason: Dyspepsia Stop: 03/03/19 00:31 Albuterol (Combivent Respimat) 2 puffs INH QAM DENISA Stop: 03/03/19 08:59 Last Admin: 02/02/19 07:55 Dose: Not Given Documented by: Amlodipine Besylate (Norvasc) 5 mg PO QAM DENISA Stop: 03/03/19 08:59 Last Admin: 02/02/19 07:52 Dose: 5 mg Documented by: Baclofen (Lioresal) 20 mg PO BID [facility] Stop: 03/03/19 00:31 Last Admin: 02/02/19 07:51 Dose: 20 mg Documented by: Carbidopa/Levodopa (Sinemet 25/250mg) 1 tab PO 0500,0800,1100,1400 [facility] Stop: 03/03/19 00:59 Last Admin: 02/02/19 14:48 Dose: 1 tab Documented by: Carbidopa/Levodopa (Sinemet 25/250mg) 1 tab PO 1700,2000,2300 [facility] Stop: 03/03/19 16:59 Last Admin: 02/01/19 22:46 Dose: 1 tab Documented by: Citalopram Hydrobromide (Celexa) 40 mg PO QAM [facility] Stop: 03/03/19 08:59 Last Admin: 02/02/19 07:51 Dose: 40 mg Documented by: Clonazepam (Klonopin) 0.5 mg PO HS PRN PRN Reason: Anxiety Stop: 03/03/19 00:31 Last Admin: 02/01/19 20:34 Dose: 0.5 mg Documented by: Clonidine HCl (Catapress) 0.3 mg PO BID [facility] Stop: 03/03/19 00:31 Last Admin: 02/02/19 07:51 Dose: 0.3 mg Documented by: Fluticasone Propionate (Flonase) 2 sprays NA DAILY PRN PRN Reason: Congestion Stop: 03/03/19 00:31 Gabapentin (Neurontin) 600 mg PO TID [facility] Stop: 03/03/19 08:59 Last Admin: 02/02/19 14:48 Dose: 600 mg Documented by: Hydrochlorothiazide (Hctz) 25 mg PO QAM [facility] Stop: 03/03/19 08:59 Last Admin: 02/02/19 07:50 Dose: 25 mg Documented by: Ioversol (Optiray 320 100ml) 94 ml IV ONCE PRN PRN Reason: Interaction Checking Stop: 02/06/19 10:58 Last Admin: 02/02/19 11:00 Dose: 94 ml Documented by: Ketorolac Tromethamine (Toradol) 30 mg IV Q6H PRN PRN Reason: Pain Stop: 02/06/19 00:31 Last Admin: 02/02/19 14:51 Dose: 30 mg Documented by: Lamotrigine (Lamictal) 50 mg PO HS [facility] Stop: 03/03/19 20:59 Last Admin: 02/01/19 20:29 Dose: 50 mg Documented by: Lisinopril (Zestril) 20 mg PO QAM [facility] Stop: 03/03/19 08:59 Last Admin: 02/02/19 07:51 Dose: 20 mg Documented by: Magnesium Hydroxide (Milk Of Magnesia) 30 ml PO Q6H PRN PRN Reason: Constipation Stop: 03/03/19 00:31 Ondansetron HCl (Zofran) 4 mg IV Q6H PRN PRN Reason: Nausea Stop: 03/03/19 00:31 Last Admin: 02/01/19 09:55 Dose: 4 mg Documented by: Pantoprazole Sodium (Protonix) 40 mg PO [facility] Stop: 03/03/19 08:59 Last Admin: 02/02/19 07:50 Dose: 40 mg Documented by: Phenazopyridine HCl (Pyridium) 100 mg PO TID PRN PRN Reason: Dysuria Stop: 03/03/19 01:11 Last Admin: 02/02/19 03:47 Dose: 100 mg Documented by: Polyethylene Glycol (Miralax Powder Packet) 17 gm PO DAILY PRN PRN Reason: Constipation Stop: 03/03/19 00:31 Senna/Docusate Sodium (Senokot S) 1 tab PO HS PRN PRN Reason: Constipation Stop: 03/03/19 00:31 Thiamine HCl (Vitamin B-1) 100 mg PO [facility] Stop: 03/03/19 08:59 Last Admin: 02/02/19 07:51 Dose: 100 mg Documented by: (1) Headache Headache chronicity pattern: unspecified pattern Headache type: unspecified Intractability: intractable Qualified Code(s): R51 - Headache
[2019-02-02] MEDS ORDERED: clonazePAM 0.5 MG TAB PO STA (16:00)
[2019-02-02] MEDS: lamoTRIgine 25 MG TAB PO SCH (20:15)
--- NOTE | 2019-02-02 22:12 | Consultation Report ---
DATE OF ADMISSION: 02/02/2019 HISTORY OF PRESENT ILLNESS: She was submitted with skull lesion and head pain. This is a 68-year-old nullip. General health is complicated by high blood pressure. Status post back surgery with a disc fusion in 2011 and she had her right knee replaced twice in 1998. She underwent menopause at age 47. She has had no bleeding since. She was a former patient of mine. I have not seen her in the office since 2010. She states that I did an outpatient procedure were I removed part of her right labia in 2004. I could find no record of this in the hospital records. 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 ALLERGIES: She has no known drug allergies. PAST SURGICAL HISTORY: She had a right knee replaced twice. She had a fusion of her back. She had an appendectomy. She had D and C. She had a broken jaw. She states that she had part of her labia removed in 2004. PAST MEDICAL HISTORY: High blood pressure. MEDICATIONS: See the list. SOCIAL HISTORY: No smoking, no excessive alcohol intake. Smoked a half a pack a day for 20 years, has stopped. 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 FAMILY HISTORY: Mom at age 96 of dementia and diabetes. Father at age 55, lymphoma. She has twin sister 66 in good health. She has a brother 70 that she does not keep in contact with, states she thinks he has arthritis. REVIEW OF SYSTEMS: Noncontributory. PHYSICAL EXAMINATION HEART: Had regular rhythm. S1, S2 are normal. LUNGS: Clear to auscultation and percussion. BREASTS: Normal. ABDOMEN: Soft and nontender. PELVIC: Both labia appeared normal, the right and left labia. I did a speculum exam to visualize the cervix. Did a Pap smear including an endocervical Pap smear. The pelvic exam was entirely normal. She did have vaginal atrophy. Bimanual exam revealed normal palpation of the cervix. Uterus was normal size, anteverted. There are no adnexal masses appreciated. There were no areas that were suspicious for carcinoma either in the vagina or on the labia. IMPRESSIONS OF THIS CASE: Normal. Pelvic exam. Pap smear is pending.
[2019-02-03] MEDS: KETOROLAC 30 MG/ML VIAL IV PRN ×2 (04:27→11:58)
[2019-02-03] MEDS: CARBIDOPA/LEVODOPA 25-250 1 EA TAB PO SCH ×3 (04:27→11:58)
[2019-02-03] MEDS: GABAPENTIN 600 MG TAB PO SCH (08:00)
[2019-02-03] MEDS: CITALOPRAM 40 MG TAB PO SCH (08:00)
[2019-02-03] MEDS: AMLODIPINE BESYLATE 5 MG TAB PO SCH (08:01)
[2019-02-03] MEDS: PANTOprazole 40 MG TAB PO SCH (08:02)
[2019-02-03] MEDS: hydroCHLOROthiazide 25 MG TAB PO SCH (08:03)
[2019-02-03] MEDS: IPRATROPIUM BROMIDE/ALBUTEROL respimat INH INH SCH (08:04)
[2019-02-03] MEDS: LISINOPRIL 20 MG TAB PO SCH (08:05)
[2019-02-03] MEDS: THIAMINE HCL 100 MG TAB PO SCH (08:05)
[2019-02-03] MEDS: BACLOFEN 10 MG TAB PO SCH (08:05)
--- NOTE | 2019-02-03 15:42 | Discharge Summary ---
Date of Service February 03, 2019 Admission HPI Per Admitting Provider 68-year-old female who presents with intractable headache. She has had this headache in the occipital area of her head she says for at least 2 years now. It is worsened in the last few months. It awakens her from sleep. She has been seen by neurology for this and is also for her parkinsonism. She was ordered a brain MRI in the outpatient setting in December but did not follow-up with this. She says because she is due to pain management appointments that were conflicting. In the ED she received a brain MRI which shows interval development of a 17 mm indeterminate focus of marrow replacement in the right oc cipital bone suspicious for osteoblastic metastasis. She also endorses decreased appetite for several months, 60 pound weight loss in that time, states her balance is off and staggers and tips backwards. She endorses blurry vision. She was treated with 4 mg IV morphine and fluids. Later when she got to the floor she became unresponsive and was snoring loudly. She was a code purple. She was assessed and given a total of 0.6 mg of Narcan with spontaneous recovery of consciousness. PMH Reflux, aneurysm of basilar artery, anxiety, depression, osteoarthritis, hyperlipidemia, hypertension, stomach ulcer, history of CVA x2. Obstructive sleep apnea, has been told she should wear his CPAP at night but is noncompliant. PSH knee replacement remote history of skin cancer in labial area, done by Dr. Kirstin lundberg. Social history: Retired S[employer]IOR [employer]. since 1 year ago. 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 Former smoker 25 pack year history. Denies etoh/drug use. She says her power of corporate associate attorney is her former [id number] Elpidio Schafer who lives in [place]. Admission Exam Per Admitting Provider Vitals noted as above and within normal limits with the exception of hypertension. GENERAL: Awake, alert to person, place, and time, nontoxic-appearing, in no distress HENT: Normocephalic, atraumatic. . Mucus membranes appear moist. + TTP on right occipital area, skin in tact. EYES: Normal conjunctiva. Sclera non-icteric. EOMI. PERRLA. NECK: Supple. Full range of motion. No JVD RESPIRATORY: Faint wheezing b/l. Normal work of breathing. CARDIAC: Regular rate, normal rhythm. Extremities warm and well perfused, 2+ radial pulses bilaterally; 2+ posterior tibialis pulses bilaterally. ABDOMEN: Soft, non-distended. No tenderness to palpation in all four quadrants. No rebound or guarding. No masses. Bowel sounds are normal. LOWER EXTREMITIES: Inspection of calves reveal equal size bilaterally. They are non-tender. No edema. No discoloration. NEURO: No focal gross focal motor deficits noted. Sensation in tact. CN II-XII grossly in tact. Finger to nose in tact. SKIN: Rash not present. No jaundice noted. Significant lesions not present. PSYCH: Appropriate mood and affect. Cooperative. Exam as done by Shasta Herrera MD, [employer]. 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 until proven otherwise Discharge Exam Constitutional WD/WN, vitals as above Eyes PERRL, conjunctivae normal, anicteric sclerae ENMT external ear and nose normal, oropharynx normal Neck trachea midline, no thyromegaly Respiratory normal respiratory effort, lungs clear to auscultation Cardiovascular RRR, no murmur, no edema Gastrointestinal (Abdomen) normal bowel sounds, soft, nontender, no hepatosplenomegaly Musculoskeletal no cyanosis or clubbing, extremities motor strength 5/5 Skin no rashes, warm and dry Neurologic patellar DTR's 2+ bilat, sensation intact and PERRL, EOMI, accommodation nl, no face palsy, no dysarthria Psychiatric A+Ox3, euthymic affect Lymphatic no cervical or axillary lymphadenopathy Discharge Data Allergies Allergy/AdvReac Type Severity Reaction Status Date / Time nicotine Allergy Intermediate skin Verified 01/31/19 18:16 irritation bee venom protein (honey bee) Allergy Unknown "I PASS Verified 01/31/19 18:16 OUT." bupropion Allergy Unknown unknown Verified 01/31/19 18:16 codeine Allergy Unknown unknown - Verified 01/31/19 18:16 TOLERATES PERCOCET Sulfa (Sulfonamide Allergy Unknown . Verified 01/31/19 18:16 Antibiotics) hydromorphone [From Dilaudid] AdvReac Unresponsiv Verified 02/01/19 03:28 e morphine AdvReac Unresponsiv Verified 02/01/19 03:28 e Consultations 01/31/19 21:18 ED Decision to Admit Stat 02/01/19 00:32 Consult Case Management - Discharge Planning Routine 02/01/19 12:01 Consult Oncology Routine 02/02/19 12:59 Consult Gynecology Routine Ordered Studies 01/31/19 17:25 MR brain wo con Stat 02/02/19 10:13 CT abd pelvis IV con only Urgent CT chest w con Urgent Hospital Course (1) Skull lesion: -Brain MRI suspicious for osteoblastic lesion. bone scan 02/01 again showed suspicious lesion, metastatic lesion is diagnosis of exclusion CT chest: showed some small blastic lesion in thoracic spine, she admits to some pain in that region no evidence of primary malignancy in chest CT abdomen/pelvis: no abnormalities Dr. Fulton examined patient on 02/02, no evidence of lesion in vulva, he performed pap smear but exam was normal interestingly, he says he has no record of her having cancer of vulva mammogram, colonoscopy can wait for outpatient setting set up for Mammogram, appointment made referral made to [facility] gastroenterology will follow up with Dr. Jernigan next week (2) Headache: moderate pain over right occipital region does not radiate limited pain control options due to going unresponsive and requiring Narcan on Morphine and Dilaudid prescribed PO Toradal because it was helping in the hospital (3) Uncontrolled pain: Code purple after 4 mg IV morphine in the ED, reversed with Narcan. - no opiate for now -IV Toradol as needed -Continue home baclofen, gabapentin 600 3 times daily. was seeing pain management outpatient, has an appointment in two weeks with Dr. Edmondson (4) COPD (chronic obstructive pulmonary disease): No known formal diagnosis of COPD. Continue home Combivent Respimat. -No acute issues. -Continuous pulse ox (5) GERD (gastroesophageal reflux disease): Continue home omeprazole (6) HTN (hypertension): continue home amlodipine 5 mg every morning, clonidine 0.3 twice daily, hydrochlorothiazide 25 every morning, lisinopril 20 mg daily. (7) Mixed anxiety and depressive disorder: Sees outpatient psychiatry once a month. No acute issues. -Continue home Celexa 40 mg, Klonopin 0.5 mg at bedtime as needed, Lamictal 50 mg at bedtime. (8) Parkinson disease: Continue home Sinemet 1 tablet by mouth 7 times daily. (9) History of cancer of vulva: see above Dr. Fulton examined on 02/02, no lesions seen will follow up with Dr. Fulton for pap smear results Total Time Total Time Spent Total Time Spent (In Minutes): 45 minutes Total Time Includes: Examination of the Patient, Discharge Planning, Medication Reconciliation, Communication With Other Providers (Dr. Fulton, Dr. 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 Jernigan Activity: Resume your previous activity Non-emergency contact: Primary Care Provider and Oncologist Call non-emergency contact if: you have any medication questions, your symptoms worsen, your pain is not controlled, your pain is concerning for you and you have a fever Follow-up[facility]Referrals: [facility] [Other] - 02/04/19 12:30 pm (Please, follow up at [facility] for a bilateral mammogram TOMORROW FridayJanuary AT 12:30. Please, do not wear deodorant, lotions, or powders. *This office is located in [address] of [facility] next to this hospital. *If you need to change this appointment, call the office at [phone].) Sera Mooney CRNP [Nurse Practitioner] - 02/08/19 3:00 pm (Please, follow up at [facility] with Sera GALEAS on FridayFebruary 08 at 3:20 pm (arrive 3:00 pm). *This office is located at [address] [place] [address] in [facility]). If you need to change this appointment, call the office at [phone].) Jennifer Kirkpatrick CRNP [Primary Care Provider] - 02/09/19 2:00 pm (Please, follow up with Jennifer GALEAS on FridayFebruary 09 at 2:00 pm. *If you need to change this appointment, call the office at [phone].) Mitch Jernigan [Physician] - (Please, follow up at [facility] with Dr. Mitch Jernigan. His nurse will call you with the appointment details. *The office is located in the rear of this hospital building. You will park behind the hospital in [address] and enter via [facility]. If you have any questions, call the office at [phone].) Diet: Regular Addtl Provider Instructions: Medications: - KETOROLAC: use as needed for pain, this is what you were taking in the hospital In summary, you were found to have a lesion in right occipital skull, three small areas in thoracic spine the diagnosis is suspected to be metastatic cancer until proven otherwise the CT of the chest and abdomen and pelvis showed no obvious primary malignancy pelvic exam showed no lesions you will need a mammogram and colonoscopy as outpatient Dr. Jernigan, oncologist, would like to see you in the office in 1-2 weeks FOLLOW UP - Jennifer GALEAS in one week - Dr. Jernigan in 1-2 weeks - pain management, Dr. Edmondson, in 18 days as previously scheduled for another attempted nerve block Prescriptions: New ketorolac 10 mg tablet 10 mg PO Q6H PRN (Reason: pain) Qty: 60 RF: 0 Continued thiamine HCl (vitamin B1) 100 mg tablet 100 mg PO QAM RF: 0 carbidopa-levodopa [Sinemet] 25-250 mg Tablet See Rx Instructions .ROUTE .COMPLEX RF: 0 lisinopril 20 mg Tablet 20 mg PO QAM RF: 0 clonazepam [Klonopin] 0.5 mg Tablet 0.5 mg PO HS PRN (Reason: Anxiety) RF: 0 amlodipine 5 mg Tablet 5 mg PO QAM RF: 0 lamotrigine [Lamictal] 25 mg Tablet 50 mg PO HS RF: 0 omeprazole 20 mg Capsule,Delayed Release(Dr/Ec) 20 mg PO QAM RF: 0 hydrochlorothiazide 25 mg Tablet 25 mg PO QAM RF: 0 fluticasone propionate [Flonase Allergy Relief] 50 mcg/actuation [employer],Suspension 2 spray INTRANASAL DAILY PRN (Reason: Congestion) RF: 0 gabapentin 600 mg tablet 600 mg PO TID RF: 0 citalopram [Celexa] 40 mg Tablet 40 mg PO QAM RF: 0 sennosides-docusate sodium [Senna-S] 8.6-50 mg Tablet 1 tab PO HS PRN (Reason: Constipation) RF: 0 clonidine HCl 0.3 mg tablet 0.3 mg PO BID RF: 0 Combivent Respimat 20-100 mcg/actuation Mist 2 puff INHALATION QAM RF: 0 cyanocobalamin (vitamin B-12) [Vitamin B-12] 1,000 mcg Tablet PO QAM RF: 0 baclofen 10 mg tablet 20 mg PO BID RF: 0 [place] [phone] mg Tablet 1 tab PO QAM RF: 0 Discontinued ibuprofen [Advil] 200 mg Tablet 800 mg PO Q4H RF: 0 Stand-Alone Forms: [facility] Discharge Orders: Discharge Order (Routine); Ordered 02/03/19 Ordered By: Jerry Dailey Admission Data Admit Date/Time: 01/31/19 22:41 Attending Provider: Jerry Dailey Admit Provider: Shasta Herrera Primary Care Provider: Jennifer Kirkpatrick I Other Providers: Shena Ibanez ; Dae Culver V ; Veto Fulton Service: Medical Other Interventions: Discharge Summary Assessment (RN) Last Done: 02/03/19 12:57 DC Date/Time DO NOT enter until pt leaves facility: 02/03/19 13:26
== END 2019-02-03 13:26 | disposition home or self-care (01) | DRG 543 ==
LOC: ED 16:54 → 4E 22:41 → SUATTDRO 22:41 → 4E 23:57

== ENCOUNTER 2019-03-19 19:34 | Inpatient (IN) ==
[2019-03-19] MEDS ORDERED: SODIUM CHLORIDE 0.9% 1000ML 1,000 ML IV SCH (20:15)
[2019-03-19 21:00] LABS: Prothrombin Time 10.4 Seconds (9.0-12.0)
[2019-03-19 21:02] LABS: Basophils # (auto) 0.02 K/uL (0-0.2); Basophils % (auto) 0.2 %; Eosinophils # (auto) 0.09 K/uL (0-0.5); Eosinophils % (auto) 1.1 %; Hematocrit (blood only) 44.6 % (37-47); Hemoglobin 14.2 g/dL (12.0-16.0); Immature Granulocytes # (auto) 0.01 K/uL (0.00-0.02); Immature Granulocytes % (auto) 0.1 %; Lymphocytes # (auto) 1.56 K/uL (1.2-3.4); Lymphocytes % (auto) 18.5 %; Mean Corpuscular Hgb Conc 31.8 g/dL (32-36); Mean Corpuscular Volume 95.7 fL (80-100); Mean Platelet Volume 10.3 fL (7.4-10.4); Monocytes # (auto) 0.88 K/uL (0.11-0.59); Monocytes % (auto) 10.5 %; Neutrophils # (auto) 5.86 K/uL (1.4-6.5); Neutrophils % (auto) 69.6 %; Platelet Count 249 K/uL (130-400); RDW Coefficient of Variation 14.6 % (11.5-14.5); Red Blood Count 4.66 M/uL (4.2-5.4); White Blood Count 8.42 K/uL (4.8-10.8)
[2019-03-19 21:12] LABS: Creatine Kinase 45 U/L (26-192); Magnesium 2.4 mg/dl (1.8-2.4)
--- NOTE | 2019-03-19 21:12 | CT Scan Report ---
CT SCAN OF THE BRAIN WITHOUT IV CONTRAST CLINICAL HISTORY: Fall. COMPARISON STUDY: CT of the brain dated 08/07/2018. TECHNIQUE: Unenhanced axial CT scan of the brain is performed from the vertex to the skull base. A do se lowering technique was utilized adhering to the principles of ALARA. CT DOSE: 614.27 mGy.cm FINDINGS: Brain parenchyma: There are age-related involutional changes noting minimal subcortical and perivent ricular microangiopathic change. There is no hemorrhage, mass effect, or evidence of acute territoria l ischemia by CT criteria. Forrester-white matter differentiation is preserved. No extra-axial fluid colle ction is seen. Ventricles, sulci, cisterns: Prominent secondary to involutional change. Intracranial vasculature: There is atherosclerotic calcification of the cavernous carotid arteries. Calvarium: The skeletal structures are osteopenic. There is no depressed calvarial fracture. An 8 mm sclerotic focus is again seen involving the right occipital bone on image #17. Sinuses and mastoids: The visualized paranasal sinuses are clear. The mastoid air cells are well pneu matized. Orbits: The bony orbits are grossly intact. IMPRESSION: 1. There is no hemorrhage, mass effect, or evidence of acute territorial ischemia by CT criteria. 2. An 8 mm sclerotic focus again seen within the right occipital bone. Electronically signed by: Casey Caro M.D. 03/19/2019 9:09 PM
--- NOTE | 2019-03-19 21:41 | XRay Report ---
SINGLE VIEW CHEST CLINICAL HISTORY: Generalized weakness. FINDINGS: An AP, portable, upright chest radiograph is compared to study dated 12/04/2017 and correlat ed with chest CT dated 03/08/2019. The examination is degraded by portable technique and patient rotat ion. The heart is top normal for projection and there is atherosclerotic calcification of the thorac ic aorta. Chronic interstitial thickening is similar to previous. The lungs and pleural spaces are cl ear. No pneumothorax is seen. The skeletal structures are osteopenic. The bony thorax is grossly inta ct. IMPRESSION: No active disease in the chest. Electronically signed by: Casey Caro M.D. 03/19/2019 9:39 PM
[2019-03-19 21:49] LABS: Chloride 105 mmol/L (98-107); Potassium 3.6 mmol/L (3.5-5.1); Sodium 141 mmol/L (136-145)
[2019-03-19 21:51] LABS: Alanine Aminotransferase 8 U/L (12-78); Albumin Level 4.2 gm/dl (3.4-5.0); Aspartate Aminotransferase 8 U/L (15-37); BUN Creatinine Ratio 11.6 (10-20); Blood Urea Nitrogen 19 mg/dl (7-18); Calcium 9.4 mg/dl (8.5-10.1); Carbon Dioxide 27 mmol/L (21-32); Creatinine Clr Calc Pharmacy 36.8 ml/min; Est GFR (African American) 37.7; Est GFR (Non-African American) 32.5; Glucose 101 mg/dl (70-99)
[2019-03-19 21:54] LABS: Albumin Globulin Ratio 1.4 (0.9-2); Alkaline Phosphatase 61 U/L (45-117); Bilirubin,Total 0.5 mg/dl (0.2-1); Total Protein 7.2 gm/dl (6.4-8.2)
[2019-03-19 22:04] LABS: Troponin I < 0.015 ng/ml (0-0.045)
--- NOTE | 2019-03-19 22:37 | Emergency Department Note ---
Entered by Casey Bullard acting as a scribe for Ajith Sharp DO History of Present Illness General Chief complaint: Fall Stated complaint: ILLNESS, DEPRESSION, FALL Time Seen by Provider: 03/19/19 20:00 Source: patient and family (sister) History of Present Illness Provider complaint: Fall Location: head Associated symptoms: + denies other symptoms (back pain) and + headaches Treatments prior to arrival: none The patient is a 68 year old female with a history of HTN, COPD, Parkinson's, and depression with suicidal behavior who presents to the Emergency Room with complaints of a fall suffered several hours ago. The patient's sister states that she found that patient lying on the floor last night and adds that the [place] ent was on the floor for 5 hours. The patient states that she hit her head. The patient's sister states that upon being woken up, the patient was acting very confused and adds that this confusion is not normal for her. The patient currently states that she "is screwed up" and adds that she is currently unable to calm herself down. The patient's sister notes that the patient is able to ambulate without issue. The patient denies back pain. Home Medications Home Medications Medication Instructions Recorded Confirmed Type amlodipine 5 mg PO QAM 08/07/18 03/08/19 History carbidopa-levodopa [Sinemet] See Rx Instructions .ROUTE .COMPLEX 08/07/18 03/08/19 History clonazepam [Klonopin] 0.5 mg PO QAM 08/07/18 03/08/19 History fluticasone propionate [Flonase 2 spray INTRANASAL DAILY PRN 08/07/18 03/08/19 History Allergy Relief] hydrochlorothiazide 25 mg PO QAM 08/07/18 03/08/19 History lamotrigine [Lamictal] 50 mg PO HS 08/07/18 03/08/19 History lisinopril 20 mg PO QAM 08/07/18 03/08/19 History omeprazole 20 mg PO QAM 08/07/18 03/08/19 History thiamine HCl (vitamin B1) 100 mg 100 mg PO QAM 11/23/18 03/08/19 History tablet Combivent Respimat 2 puff INHALATION QAM PRN 01/31/19 03/08/19 History baclofen 20 mg PO BID 01/31/19 03/08/19 History citalopram [Celexa] 40 mg PO QAM 01/31/19 03/08/19 History clonidine HCl 0.3 mg PO BID 01/31/19 03/08/19 History gabapentin 600 mg PO TID 01/31/19 03/08/19 History Melaton 12mg 12 mg PO HS 03/08/19 03/08/19 History Prevagen 10 mg PO QAM 03/08/19 03/08/19 History Tumeric 450 mg PO QAM 03/08/19 03/08/19 History cholecalciferol (vitamin D3) 0 unit PO QAM 03/08/19 03/08/19 History [Vitamin D3] cyanocobalamin (vitamin B-12) 500 mcg PO QAM 03/08/19 03/08/19 History [Vitamin B-12] docusate sodium [Colace] 100 mg PO BID #60 cap 03/08/19 Rx famotidine [Pepcid] 40 mg PO HS #30 tab 03/08/19 Rx hydralazine 10 mg PO TID 03/08/19 03/08/19 History oxycodone-acetaminophen [Percocet] 1 tab PO Q6H #14 tab 03/08/19 Rx potassium chloride 10 meq PO UD 03/08/19 03/08/19 History sennosides [Senokot] 8.6 mg PO HS #30 tab 03/08/19 Rx trazodone 200 mg PO HS 03/08/19 03/08/19 History Allergies Allergy/AdvReac Type Severity Reaction Status Date / Time nicotine Allergy Intermediate skin Verified 03/08/19 14:11 irritation bee venom protein (honey bee) Allergy Unknown "I PASS Verified 03/08/19 14:11 OUT." bupropion Allergy Unknown unknown Verified 03/08/19 14:11 codeine Allergy Unknown unknown - Verified 03/08/19 14:11 TOLERATES PERCOCET Sulfa (Sulfonamide Allergy Unknown . 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 Lumbago (Chronic) History of anesthesia reaction PT STATES THAT SHE WOKE UP TWICE DURING PREVIOUS COLONOSCOPY AND WAS ADVISED TO ALERT STAFF OF THIS FOR FUTURE PROCEDURES. Surgical History History of spinal surgery (Chronic) LUMBAR FUSION S/P excision of lipoma (Chronic) Status post right knee replacement (Chronic) History of surgery REMOVAL OF RIGHT LABIA FOLLOWING DX OF VULVA CANCER Family History Other Family history non-contributory Social History Preferred Language: Amharic Communication Ability: Effective Visual Impairment: Limited Hearing Ability: Normal Beliefs That Will Affect Care: None marital status: / Current Living Situation: Family Current Living Situation Comment: lives with sister current occupational status: disabled Feels Safe at Home: Yes Smoking Status: Current every day smoker Tobacco Type: cigarettes Cigarettes Per Day: OCC. SOCIAL USE Second Hand Exposure: No Hx Alcohol Use: No Hx Substance Use: No Review of Systems See HPI for pertinent positives & negatives. and A total of 10 systems reviewed and were otherwise negative Physical Exam Vital Signs Vital Signs - 24 hr 03/19/19 19:35 03/19/19 20:51 03/19/19 22:07 Temperature 36.8 C Temperature Source Oral Sepsis Recent Fever Within 48 Hours No Sepsis Action Taken by Nursing No Action Required Pulse Rate 64 59 L Pulse Rate [Apical] 52 L Pulse Rhythm [Apical] Regular Pulse Strength [Apical] Normal Respiratory Rate 18 20 Respiratory Effort / Characteristics Non-Labored Spontaneous Non-Labored Spontaneous Respiratory Depth Normal Normal Respiratory Pattern Regular Regular Blood Pressure 160/117 H Blood Pressure [Left Arm] 99/55 L Blood Pressure Mean 131 Blood Pressure Mean [Left Arm] 69 Blood Pressure Position Lying Blood Pressure Position [Left Arm] Lying Pulse Oximetry 95 97 92 Oxygen Delivery Method Room Air Room Air Room Air VITAL SIGNS: were reviewed as above. GENERAL:Non-toxic in appearance. Period tremors unable to sit up in bd without assistance, Answers most questions appropriately, moves all extremities although weak. SKIN: Warm dry and pink. HEAD: Normocephalic and atraumatic. OROPHARYNX: Is clear and moist NECK: Supple without lymphadenopathy or meningismus. LUNGS: clear. HEART: Regular rate and rhythm. ABDOMEN: Soft and nontender. EXTREMITIES: Warm and well perfused. NEUROLOGICALLY: Awake alert and oriented without focal deficit. Cranial nerves 2-12 are intact. There is no pronator drift. Cerebellar testing is within normal limits. There is no nystagmus. There is no facial droop. Speech is clear. Vision is grossly normal. MUSCULOSKELETAL: Good muscle tone. No evidence of trauma. Course 2020: The patient was evaluated in room A02. A complete history and physical exam was performed. 2229: I reviewed the case with Dr. Alcantara. He will evaluate the patient. Reevaluation(s) Time: 22:30 Consultations Consultation #1: [id number]: I reviewed the case with Dr. Alcantara. He will evaluate the patient. Administered Medications Discontinued Medications Sodium Chloride (Nss 1000ml) 1,000 mls @ 999 mls/hr IV .Q1H1M DENISA Stop: 03/19/19 21:15 Last Infusion: 03/19/19 22:02 Dose: 0 mls/hr Documented by: [id number] Admin: 03/19/19 20:54 Dose: 999 mls/hr Documented by: [id number] Medical Decision Making Differential Diagnosis Differential includes acute coronary syndrome, myocardial infarction, CVA, TIA, anemia, infection, pneumonia, UTI, pyelonephritis, poor nutrition, dehydration, electrolyte disturbance,hypoglycemia. Medical Records Attestation: I reviewed the patient's medical records. Home Medications Current Medication List: was personally reviewed by me Laboratory Data Attestation: I reviewed the patient's lab results. Result diagrams: 03/19/19 20:34 03/19/19 20:34 Lab Results 03/19/19 03/19/19 03/19/19 Range/Units 20:34 20:34 20:34 WBC (4.8-10.8) K/uL RBC (4.2-5.4) M/uL Hgb (12.0-16.0) g/dL Hct (37-47) % MCV (80-100) fL MCH (25-34) pg MCHC (32-36) g/dL RDW Std Deviation (36.4-46.3) fL RDW Coeff of Ginger (11.5-14.5) % Plt Count (130-400) K/uL MPV (7.4-10.4) fL Immature Gran % (Auto) % Neut % (Auto) % Lymph % (Auto) % [place] % (Auto) % Eos % (Auto) % Baso % (Auto) % Immature Gran # (Auto) (0.00-0.02) K/uL Neut # (Auto) (1.4-6.5) K/uL Lymph # (Auto) (1.2-3.4) K/uL [place] # (Auto) (0.11-0.59) K/uL Eos # (Auto) (0-0.5) K/uL Baso # (Auto) (0-0.2) K/uL PT 10.4 (9.0-12.0) Seconds INR 1.0 (0.9-1.1) Sodium 141 (136-145) mmol/L Potassium 3.6 (3.5-5.1) mmol/L Chloride 105 (98-107) mmol/L Carbon Dioxide 27 (21-32) mmol/L Anion Gap 10.0 (3-11) BUN 19 H (7-18) mg/dl Creatinine 1.63 H (0.6-1.2) mg/dl Est Cr Clr Drug Dosing 36.8 ml/min Est GFR ( Amer) 37.7 Est GFR (Non-Af Amer) 32.5 BUN/Creatinine Ratio 11.6 (10-20) Glucose 101 H (70-99) mg/dl Lactate 1.1 (0.4-2.0) mmol/L Calcium 9.4 (8.5-10.1) mg/dl Magnesium 2.4 (1.8-2.4) mg/dl Total Bilirubin 0.5 (0.2-1) mg/dl AST 8 L (15-37) U/L ALT 8 L (12-78) U/L Alkaline Phosphatase 61 (45-117) U/L Total Creatine Kinase 45 (26-192) U/L Troponin I < 0.015 (0-0.045) ng/ml Total Protein 7.2 (6.4-8.2) gm/dl Albumin 4.2 (3.4-5.0) gm/dl Globulin 3.0 (2.5-4.0) gm/dl Albumin/Globulin Ratio 1.4 (0.9-2) TSH 1.530 (0.300-4.500) uIu/ml 03/19/19 Range/Units 20:34 WBC 8.42 (4.8-10.8) K/uL RBC 4.66 (4.2-5.4) M/uL Hgb 14.2 (12.0-16.0) g/dL Hct 44.6 (37-47) % MCV 95.7 (80-100) fL MCH 30.5 (25-34) pg MCHC 31.8 L (32-36) g/dL RDW Std Deviation 51.0 H (36.4-46.3) fL RDW Coeff of Ginger 14.6 H (11.5-14.5) % Plt Count 249 (130-400) K/uL MPV 10.3 (7.4-10.4) fL Immature Gran % (Auto) 0.1 % Neut % (Auto) 69.6 % Lymph % (Auto) 18.5 % [place] % (Auto) 10.5 % Eos % (Auto) 1.1 % Baso % (Auto) 0.2 % Immature Gran # (Auto) 0.01 (0.00-0.02) K/uL Neut # (Auto) 5.86 (1.4-6.5) K/uL Lymph # (Auto) 1.56 (1.2-3.4) K/uL [place] # (Auto) 0.88 H (0.11-0.59) K/uL Eos # (Auto) 0.09 (0-0.5) K/uL Baso # (Auto) 0.02 (0-0.2) K/uL PT (9.0-12.0) Seconds INR (0.9-1.1) Sodium (136-145) mmol/L Potassium (3.5-5.1) mmol/L Chloride (98-107) mmol/L Carbon Dioxide (21-32) mmol/L Anion Gap (3-11) BUN (7-18) mg/dl Creatinine (0.6-1.2) mg/dl Est Cr Clr Drug Dosing ml/min Est GFR ( Amer) Est GFR (Non-Af Amer) BUN/Creatinine Ratio (10-20) Glucose (70-99) mg/dl Lactate (0.4-2.0) mmol/L Calcium (8.5-10.1) mg/dl Magnesium (1.8-2.4) mg/dl Total Bilirubin (0.2-1) mg/dl AST (15-37) U/L ALT (12-78) U/L Alkaline Phosphatase (45-117) U/L Total Creatine Kinase (26-192) U/L Troponin I (0-0.045) ng/ml Total Protein (6.4-8.2) gm/dl Albumin (3.4-5.0) gm/dl Globulin (2.5-4.0) gm/dl Albumin/Globulin Ratio (0.9-2) TSH (0.300-4.500) uIu/ml Imaging Data Radiologist's Impression: Radiology results as stated below per my review and the radiologist's interpretation: SINGLE VIEW CHEST CLINICAL HISTORY: Generalized weakness. FINDINGS: An AP, portable, upright chest radiograph is compared to study dated 12/04/2017 and correlated with chest CT dated 03/08/2019. The examination is degraded by portable technique and patient rotation. The heart is top normal for projection and there is atherosclerotic calcification of the thoracic aorta. Chronic interstitial thickening is similar to previous. The lungs and pleural spaces are clear. No pneumothorax is seen. The skeletal structures are osteopenic. The bony thorax is grossly intact. IMPRESSION: No active disease in the chest. Electronically signed by: Casey Caro M.D. 03/19/2019 9:[address] SCAN OF THE BRAIN WITHOUT IV CONTRAST CLINICAL HISTORY: Fall. COMPARISON STUDY: CT of the brain dated 08/07/2018. TECHNIQUE: Unenhanced axial CT scan of the brain is performed from the vertex to the skull base. A dose lowering technique was utilized adhering to the principles of ALARA. CT DOSE: 614.27 mGy.cm FINDINGS: Brain parenchyma: There are age-related involutional changes noting minimal subcortical and periventricular microangiopathic change. There is no hemorrhage, mass effect, or evidence of acute territorial ischemia by CT criteria. Forrester- white matter differentiation is preserved. No extra-axial fluid collection is seen. Ventricles, sulci, cisterns: Prominent secondary to involutional change. Intracranial vasculature: There is atherosclerotic calcification of the cavernous carotid arteries. Calvarium: The skeletal structures are osteopenic. There is no depressed calvarial fracture. An 8 mm sclerotic focus is again seen involving the right occipital bone on image #17. Sinuses and mastoids: The visualized paranasal sinuses are clear. The mastoid air cells are well pneumatized. Orbits: The bony orbits are grossly intact. IMPRESSION: 1. There is no hemorrhage, mass effect, or evidence of acute territorial ischemia by CT criteria. 2. An 8 mm sclerotic focus again seen within the right occipital bone. Electronically signed by: Casey Caro M.D. 03/19/2019 9:09 PM ECG Data Attestation: I personally reviewed and interpreted this ECG as follows: Indication: weakness Rate (beats per minute): 60 Rhythm: sinus bradycardia Findings: + PVC; no ST elevation Blood Pressure Blood Pressure Findings: Low blood pressure Blood Pressure Disposition: further management by hospitalist COLT Narrative This is a 68-year-old female who presents to the ED with a chief complaint of falling and not able to get around for the past 3 days. Today, the patient's twin sister found her lying on the floor in the bedroom. She was laying on the floor for about 5 hours after she fell. She reports that she hit her ahead. She states that she cannot keep herself upright. Further details above. The patient's initial blood pressure was elevated. Her physical exam reveals that she has occasional twitches. She has lack of adequate core strength to keep herself upright in the seated position. She seems to have bilateral upper and lower extremity weakness as well on exam. An EKG shows a sinus bradycardia at a rate of [address] scan of the brain was negative for acute disease. Blood work was relatively unremarkable other than some findings concerning for some mild dehydration. Chest x-ray was negative for acute disease. Cardiac enzymes were normal. TSH was normal. The patient was reassessed. She continues to claim that she has been falling for the last several days and is unable to stand under her own power. On my reassessment, the patient was sleeping and did not awaken to a sternal rub but did awaken to nailbed pressure. The exact cause of the patient's symptoms are unclear. This may be neurological versus psychological. I spoke with the hospitalist service for further evaluation and care as an inpatient. Impression & Plan Generalized muscle weakness, Unable to ambulate Discharge Plan Visit Data Chief Complaint: Fall Stated Complaint: ILLNESS, DEPRESSION, FALL ED Provider: Ajith Sharp Discharge Problem: Generalized muscle weakness, Unable to ambulate Patient Disposition: Being Evaluated by Hospitalist Forms Stand Alone Forms: My [facility] Prescriptions Prescriptions: No Action thiamine HCl (vitamin B1) 100 mg tablet 100 mg PO QAM RF: 0 hydralazine 10 mg tablet 10 mg PO TID RF: 0 potassium chloride 10 mEq Tablet Extended Release 10 meq PO UD RF: 0 cyanocobalamin (vitamin B-12) [Vitamin B-12] 500 mcg Tablet 500 mcg PO QAM RF: 0 trazodone 100 mg tablet 200 mg PO HS RF: 0 cholecalciferol (vitamin D3) [Vitamin D3] 1,000 unit Capsule PO QAM RF: 0 Melaton 12mg 12 mg PO HS RF: 0 Prevagen 10 mg PO QAM RF: 0 Tumeric 450 mg PO QAM RF: 0 oxycodone-acetaminophen [Percocet] 5-325 mg tablet 1 tab PO Q6H Qty: 14 RF: 0 sennosides [Senokot] 8.6 mg tablet 8.6 mg PO HS Qty: 30 RF: 0 docusate sodium [Colace] 100 mg capsule 100 mg PO BID Qty: 60 RF: 0 famotidine [Pepcid] 40 mg tablet 40 mg PO HS Qty: 30 RF: 0 carbidopa-levodopa [Sinemet] 25-250 mg Tablet See Rx Instructions .ROUTE .COMPLEX RF: 0 lisinopril 20 mg Tablet 20 mg PO QAM RF: 0 clonazepam [Klonopin] 0.5 mg Tablet 0.5 mg PO QAM RF: 0 amlodipine 5 mg Tablet 5 mg PO QAM RF: 0 lamotrigine [Lamictal] 25 mg Tablet 50 mg PO HS RF: 0 omeprazole 20 mg Capsule,Delayed Release(Dr/Ec) 20 mg PO QAM RF: 0 hydrochlorothiazide 25 mg Tablet 25 mg PO QAM RF: 0 fluticasone propionate [Flonase Allergy Relief] 50 mcg/actuation [place],Suspension 2 spray INTRANASAL DAILY PRN (Reason: Congestion) RF: 0 gabapentin 600 mg tablet 600 mg PO TID RF: 0 citalopram [Celexa] 40 mg Tablet 40 mg PO QAM RF: 0 clonidine HCl 0.3 mg tablet 0.3 mg PO BID RF: 0 Combivent Respimat 20-100 mcg/actuation [place] 2 puff INHALATION QAM PRN (Reason: Shortness Of Breath Or Wheezing) RF: 0 baclofen 10 mg tablet 20 mg PO BID RF: 0 Referrals Referrals: PCP,NO [Primary Care Provider] - The scribe's documentation has been prepared under my direction and personally reviewed by me in its entirety. I confirm that the note above accurately reflects all work, treatment, procedures, and medical decision making performed by me.
--- NOTE | 2019-03-19 23:42 | History & Physical Report ---
Date of Service March 19, 2019 Assessment & Plan (1) Syncope: Syncope/inability to ambulate in the ED- Work-up in the emergency department including a CT of the head was normal, chest x-ray was normal, and laboratories were normal except for elevated creatinine of 1.63. Patient did have an MRI of brain in January,, which showed an initial peripheral lesion of unknown certain etiology. An MRI of brain was ordered for tonight, but the patient was lethargic, and her sister had already left and we were not able to get MRI performed due to requirement of consent. Patient does not have any focal lesions, and the MRI is ordered for comparison to the MRI of January 2019. The patient does have a history of severe anxiety with depression, and noncompliance, and the etiology of her symptoms and inability to sit up and or hold her arms up is unclear at this time. Present on Admission?: Yes (2) Unable to ambulate: As above. Present on Admission?: Yes (3) Parkinson disease: The patient sister reports that the patient has been taking her medications as directed. It is possible that if she has not been taking her Parkinson medications as directed, that they may be contributing to her current status symptoms now. Patient is unable to take medications at this time due to her current mental state, and will be reassessed in the morning. Consult neurology. Present on Admission?: Yes (4) Mixed anxiety and depressive disorder: Unclear patient if patient has been taking medications as directed, but since she is sedated at this time, all of her medications will need to be held at this time: Baclofen, clonazepam, gabapentin, lamotrigine and trazodone. Present on Admission?: Yes (5) Metastatic malignant neoplasm of unknown primary site: Unclear the origin of this diagnosis. MRI of brain on 01/31/19 shows a 17 mm indeterminate focus of marrow replacement involving the right occipital bone, would likely diagnostic considerations Suggested by radiology at that time to include osteoma, fibrous dysplasia or osteoblastic metastasis. MRI brain has been ordered and follow-up will be performed when radiology is able to clear patient from their perspective. Present on Admission?: Yes (6) Hypertension: The patient at this time has normal blood pressure. Until her mentation improves and her blood pressure requires it, will hold her usual medications: Amlodipine, aspirin, clonidine, hydralazine, HCTZ, lisinopril. Present on Admission?: Yes (7) COPD (chronic obstructive pulmonary disease): Oxygenation appears to be good at this time. We will hold Combivent and fluticasone nasal spray. Present on Admission?: Yes (8) GERD (gastroesophageal reflux disease): Place on famotidine 20 mg IV every 12 hours. Present on Admission?: Yes History of Present Illness Chief Complaint: The patient presents to the emergency department after her sister found her lying on the floor for which she estimates was at least 5 hours. The Patient states that she hit her head. Her sister reports that patient was acting very confused after she woke up. Primary Care Provider: NO PCP The patient is a 68-year-old female with a past medical history including Parkinson's, hypertension, anxiety with depression, GERD, spinal stenosis, and COPD who presents to the emergency department after being found lying on the floor for an estimated 5 hours by her sister. Her sister reports that the patient was confused upon awakening. The patient does report that she feels she may have hit her head. The patient was noted to be very anxious when she was in the emergency department, and stated that she was unable to calm herself down. The ED nurses and physicians report that the patient feels that she is unable to hold herself sitting upright in bed, and is unable to hold her arms up either. Allergies Allergy/AdvReac Type Severity Reaction Status Date / Time nicotine Allergy Intermediate skin Verified 03/19/19 23:42 irritation bee venom protein (honey bee) Allergy Unknown "I PASS Verified 03/19/19 23:42 OUT." bupropion Allergy Unknown unknown Verified 03/19/19 23:42 codeine Allergy Unknown unknown - Verified 03/19/19 23:42 TOLERATES PERCOCET Sulfa (Sulfonamide Allergy Unknown . Verified 03/19/19 23:42 Antibiotics) hydromorphone [From Dilaudid] AdvReac Unresponsiv Verified 03/19/19 23:42 e morphine AdvReac Unresponsiv Verified 03/19/19 23:42 e Home Medications Home Medications Medication Instructions Recorded Confirmed Type amlodipine 5 mg PO QAM 08/07/18 03/19/19 History carbidopa-levodopa [Sinemet] 1 tab PO .. 7 TIMES A DAY 08/07/18 03/19/19 History clonazepam [Klonopin] 0.5 mg PO HS 08/07/18 03/19/19 History fluticasone propionate [Flonase 2 spray INTRANASAL DAILY PRN 08/07/18 03/19/19 History Allergy Relief] hydrochlorothiazide 25 mg PO QAM 08/07/18 03/19/19 History lamotrigine [Lamictal] 50 mg PO HS 08/07/18 03/19/19 History lisinopril 20 mg PO QAM 08/07/18 03/19/19 History omeprazole 20 mg PO QAM 08/07/18 03/19/19 History thiamine HCl (vitamin B1) 100 mg 100 mg PO QAM 11/23/18 03/19/19 History tablet Combivent Respimat 2 puff INHALATION QAM PRN 01/31/19 03/19/19 History baclofen 10 - 20 mg PO Q8 PRN 01/31/19 03/19/19 History clonidine HCl 0.3 mg PO BID 01/31/19 03/19/19 History gabapentin 600 mg PO TID 01/31/19 03/19/19 History cyanocobalamin (vitamin B-12) 500 mcg PO QAM 03/08/19 03/19/19 History [Vitamin B-12] docusate sodium [Colace] 100 mg PO BID #60 cap 03/08/19 03/19/19 Rx famotidine [Pepcid] 40 mg PO HS #30 tab 03/08/19 03/19/19 Rx hydralazine 10 mg PO TID 03/08/19 03/19/19 History sennosides [Senokot] 8.6 mg PO HS #30 tab 03/08/19 03/19/19 Rx trazodone 200 mg PO HS 03/08/19 03/19/19 History aspirin 81 mg PO DAILY 03/19/19 03/19/19 History clonazepam 1 mg PO QAM 03/19/19 03/19/19 History nitrofurantoin monohyd/m-cryst 100 mg PO BIDM 03/19/19 03/19/19 History phenazopyridine [Pyridium] 100 mg PO TID 03/19/19 03/19/19 History potassium chloride 20 meq PO DAILY PRN 03/19/19 03/19/19 History Past Med/Surg History Medical History COPD (chronic obstructive pulmonary disease) (Chronic) Spinal stenosis (Chronic) GERD (gastroesophageal reflux disease) (Chronic) HTN (hypertension) (Chronic 01/06/15) 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 Lumbago (Chronic) History of anesthesia reaction PT STATES THAT SHE WOKE UP TWICE DURING PREVIOUS COLONOSCOPY AND WAS ADVISED TO ALERT STAFF OF THIS FOR FUTURE PROCEDURES. Surgical History History of spinal surgery (Chronic) LUMBAR FUSION S/P excision of lipoma (Chronic) Status post right knee replacement (Chronic) History of surgery REMOVAL OF RIGHT LABIA FOLLOWING DX OF VULVA CANCER Family History Other Family history non-contributory Social History Preferred Language: Czech Communication Ability: Effective Visual Impairment: Limited Hearing Ability: Normal Cartridge Loader Required: No Beliefs That Will Affect Care: None marital status: / Current Living Situation: Family Current Living Situation Comment: sister current occupational status: disabled Other Information That Helps Us Care for You: No Feels Safe at Home: Yes Smoking Status: Current every day smoker Tobacco Type: cigarettes Cigarettes Per Day: 4 Second Hand Exposure: No Hx Alcohol Use: No Hx Substance Use: No Review of Systems Review of Systems: At the time of my examination, the patient is sleeping very soundly, and difficult to arouse, and thus her HPI and review of systems is limited to that information provided by the emergency department and her sister. Physical Exam Physical Exam: The patient is nonresponding, normocephalic and atraumatic, lying in bed and in no acute distress. HEENT--PERRL, EOMI, mucous membranes and oropharynx normal. Neck--supple. No JVD. No bruits. Thyroid normal, trachea midline, no adenopathy. Heart--normal S1 and S2. No murmurs, rubs or gallops. Lungs--clear bilaterally, no respiratory distress, no accessory muscle use. Abdomen--normal bowel sounds and soft. Nontender. Nondistended. Extremities--no cyanosis or clubbing. No edema. There are good distal pulses b/l. Dermatologic--normal skin turgor, normal color, no abnormal lymph nodes, no rash. Neurologic--cranial nerves II through XII grossly intact. Rheumatologic-limited exam. Psychiatric--initially anxious, now sedated. Results & Data Vital Signs (Past 12 Hours) Vital Signs Temp Pulse Pulse Resp BP BP Pulse Ox 03/19/19 22:07 52 L 20 99/55 L 92 03/19/19 20:51 59 L 97 03/19/19 19:35 98.2 F 64 18 160/117 H 95 Laboratory Results Laboratory Results WBC 8.42 K/uL (4.8-10.8) 03/19/19 20:34 RBC 4.66 M/uL (4.2-5.4) 03/19/19 20:34 Hgb 14.2 g/dL (12.0-16.0) 03/19/19 20:34 Hct 44.6 % (37-47) 03/19/19 20:34 MCV 95.7 fL (80-100) 03/19/19 20:34 MCH 30.5 pg (25-34) 03/19/19 20:34 MCHC 31.8 g/dL (32-36) L 03/19/19 20:34 RDW Std Deviation 51.0 fL (36.4-46.3) H 03/19/19 20:34 RDW Coeff of Ginger 14.6 % (11.5-14.5) H 03/19/19 20:34 Plt Count 249 K/uL (130-400) 03/19/19 20:34 MPV 10.3 fL (7.4-10.4) 03/19/19 20:34 Immature Gran % (Auto) 0.1 % 03/19/19 20:34 Neut % (Auto) 69.6 % 03/19/19 20:34 Lymph % (Auto) 18.5 % 03/19/19 20:34 Pine % (Auto) 10.5 % 03/19/19 20:34 Eos % (Auto) 1.1 % 03/19/19 20:34 Baso % (Auto) 0.2 % 03/19/19 20:34 Immature Gran # (Auto) 0.01 K/uL (0.00-0.02) 03/19/19 20:34 Neut # (Auto) 5.86 K/uL (1.4-6.5) 03/19/19 20:34 Lymph # (Auto) 1.56 K/uL (1.2-3.4) 03/19/19 20:34 Pine # (Auto) 0.88 K/uL (0.11-0.59) H 03/19/19 20:34 Eos # (Auto) 0.09 K/uL (0-0.5) 03/19/19 20:34 Baso # (Auto) 0.02 K/uL (0-0.2) 03/19/19 20:34 PT 10.4 Seconds (9.0-12.0) 03/19/19 20:34 INR 1.0 (0.9-1.1) 03/19/19 20:34 Sodium 141 mmol/L (136-145) 03/19/19 20:34 Potassium 3.6 mmol/L (3.5-5.1) 03/19/19 20:34 Chloride 105 mmol/L (98-107) 03/19/19 20:34 Carbon Dioxide 27 mmol/L (21-32) 03/19/19 20:34 Anion Gap 10.0 (3-11) 03/19/19 20:34 BUN 19 mg/dl (7-18) H 03/19/19 20:34 Creatinine 1.63 mg/dl (0.6-1.2) H 03/19/19 20:34 Est Cr Clr Drug Dosing 36.8 ml/min 03/19/19 20:34 Est GFR ( Amer) 37.7 03/19/19 20:34 Est GFR (Non-Af Amer) 32.5 03/19/19 20:34 BUN/Creatinine Ratio 11.6 (10-20) 03/19/19 20:34 Glucose 101 mg/dl (70-99) H 03/19/19 20:34 Lactate 1.1 mmol/L (0.4-2.0) 03/19/19 20:34 Calcium 9.4 mg/dl (8.5-10.1) 03/19/19 20:34 Magnesium 2.4 mg/dl (1.8-2.4) 03/19/19 20:34 Total Bilirubin 0.5 mg/dl (0.2-1) 03/19/19 20:34 AST 8 U/L (15-37) L 03/19/19 20:34 ALT 8 U/L (12-78) L 03/19/19 20:34 Alkaline Phosphatase 61 U/L (45-117) 03/19/19 20:34 Total Creatine Kinase 45 U/L (26-192) 03/19/19 20:34 Troponin I < 0.015 ng/ml (0-0.045) 03/19/19 20:34 Total Protein 7.2 gm/dl (6.4-8.2) 03/19/19 20:34 Albumin 4.2 gm/dl (3.4-5.0) 03/19/19 20:34 Globulin 3.0 gm/dl (2.5-4.0) 03/19/19 20:34 Albumin/Globulin Ratio 1.4 (0.9-2) 03/19/19 20:34 TSH 1.530 uIu/ml (0.300-4.500) 03/19/19 20:34 Diagnostic Findings [place], [place] [phone] CT Scan Report Patient: ELIZABETH BAILEY Date: 03/19/19 MR#: [id number]: [address] [facility] Acct ID:[id number]: [address] Date: [address] [place] [address] Zip: [place] [address] Age: 68Location: ED Sex: F Room/Bed: Att Phy: Diagnosis: ILLNESS, DEPRESSION, FALL Karen Phy: PCP,NO Service Date: 03/19/19 Fam Phy: Interpreting Phy: Casey Caro MD Admit Phy: Ordering Phy: Ajith Sharp D.O. cc: ~ CT SCAN OF THE BRAIN WITHOUT IV CONTRAST CLINICAL HISTORY: Fall. COMPARISON STUDY: CT of the brain dated 08/07/2018. TECHNIQUE: Unenhanced axial CT scan of the brain is performed from the vertex to the skull base. A dose lowering technique was utilized adhering to the principles of ALARA. CT DOSE: 614.27 mGy.cm FINDINGS: Brain parenchyma: There are age-related involutional changes noting minimal subcortical and periventricular microangiopathic change. There is no hemorrhage, mass effect, or evidence of acute territorial ischemia by CT criteria. Forrester- white matter differentiation is preserved. No extra-axial fluid collection is seen. Ventricles, sulci, cisterns: Prominent secondary to involutional change. Intracranial vasculature: There is atherosclerotic calcification of the cavernous carotid arteries. Calvarium: The skeletal structures are osteopenic. There is no depressed calvarial fracture. An 8 mm sclerotic focus is again seen involving the right occipital bone on image #17. Sinuses and mastoids: The visualized paranasal sinuses are clear. The mastoid air cells are well pneumatized. Orbits: The bony orbits are grossly intact. IMPRESSION: 1. There is no hemorrhage, mass effect, or evidence of acute territorial ischemia by CT criteria. 2. An 8 mm sclerotic focus again seen within the right occipital bone. Electronically signed by: Casey Caro M.D. 03/19/2019 9:09 PM Dictated: 03/19/192105 Transcribed: 03/19/192105 [place], [place] [phone] XRay Report Patient: ELIZABETH BAILEY Date: 03/19/19 MR#: [id number]: [id number] [facility] Acct ID:[id number]: [address] Date: [address] [place] [address] Zip: [place] [address] Age: 68Location: ED Sex: F Room/Bed: Att Phy: Diagnosis: ILLNESS, DEPRESSION, FALL Karen Phy: PCP,NO Service Date: 03/19/19 [facility] Phy: Interpreting Phy: Casey Caro MD Admit Phy: Ordering Phy: Ajith Sharp D.O. cc: ~ SINGLE VIEW CHEST CLINICAL HISTORY: Generalized weakness. FINDINGS: An AP, portable, upright chest radiograph is compared to study dated 12/04/2017 and correlated with chest CT dated 03/08/2019. The examination is degraded by portable technique and patient rotation. The heart is top normal for projection and there is atherosclerotic calcification of the thoracic aorta. Chronic interstitial thickening is similar to previous. The lungs and pleural spaces are clear. No pneumothorax is seen. The skeletal structures are osteopenic. The bony thorax is grossly intact. IMPRESSION: No active disease in the chest. Electronically signed by: Casey Caro M.D. 03/19/2019 9:39 PM Dictated: 03/19/192137 Transcribed: 03/19/192137 Code Status & VTE Plan Code Status Full code VTE Prophylaxis Plan VTE Prophylaxis will be ordered: Yes
[2019-03-20] MEDS ORDERED: ONDANSETRON INJ 2 MG/ML 2 ML VIAL IV PRN (00:28)
[2019-03-20] MEDS ORDERED: SODIUM CHLORIDE 0.9% 1000ML 1,000 ML IV SCH (00:28)
[2019-03-20] MEDS: FAMOTIDINE 20 MG in SYRINGE 3 ML IV SCH ×2 (02:01→14:10)
[2019-03-20] MEDS: ACETAMINOPHEN 1000 MG/100 ML IV IV PRN ×2 (06:33→14:30)
[2019-03-20 07:25] LABS: Appearance Urine Slightly Cloudy (Clear); Color Urine Orange; Protein Urine Negative (Negative); Specific Gravity Urine 1.014 (1.000-1.030)
[2019-03-20 07:27] LABS: Mucus Urine Present (None Prsent)
[2019-03-20 07:28] LABS: Bacteria Urine 1+ (Negative); RBC Urine 0-4 /hpf (0-4)
[2019-03-20 08:56] LABS: Basophils # (auto) 0.02 K/uL (0-0.2); Basophils % (auto) 0.3 %; Eosinophils # (auto) 0.06 K/uL (0-0.5); Eosinophils % (auto) 0.9 %; Hematocrit (blood only) 44.2 % (37-47); Hemoglobin 14.2 g/dL (12.0-16.0); Immature Granulocytes # (auto) 0.01 K/uL (0.00-0.02); Immature Granulocytes % (auto) 0.2 %; Lymphocytes # (auto) 1.28 K/uL (1.2-3.4); Lymphocytes % (auto) 19.8 %; Mean Corpuscular Hgb Conc 32.1 g/dL (32-36); Mean Corpuscular Volume 96.7 fL (80-100); Mean Platelet Volume 10.2 fL (7.4-10.4); Monocytes # (auto) 0.57 K/uL (0.11-0.59); Monocytes % (auto) 8.8 %; Neutrophils # (auto) 4.51 K/uL (1.4-6.5); Platelet Count 243 K/uL (130-400); RDW Coefficient of Variation 14.6 % (11.5-14.5); Red Blood Count 4.57 M/uL (4.2-5.4); White Blood Count 6.45 K/uL (4.8-10.8)
[2019-03-20 09:04] LABS: Partial Thromboplastin Time 25.8 Seconds (21.0-31.0); Prothrombin Time 10.3 Seconds (9.0-12.0)
[2019-03-20 09:25] LABS: Albumin Level 3.7 gm/dl (3.4-5.0); BUN Creatinine Ratio 19.7 (10-20); Calcium 9.3 mg/dl (8.5-10.1); Creatinine Clr Calc Pharmacy 55.5 ml/min; Est GFR (African American) 61.9; Est GFR (Non-African American) 53.5; Potassium 3.6 mmol/L (3.5-5.1)
[2019-03-20 09:34] LABS: Albumin Globulin Ratio 1.1 (0.9-2); Bilirubin,Total 0.6 mg/dl (0.2-1); Globulin 3.3 gm/dl (2.5-4.0)
[2019-03-20] MEDS ORDERED: BACLOFEN 10 MG TAB PO PRN ×2 (10:47→22:18)
[2019-03-20] MEDS: clonazePAM 1 MG TAB PO SCH (11:37)
--- NOTE | 2019-03-20 13:36 | Magnetic Resonance Report ---
MRI OF THE BRAIN WITHOUT CONTRAST CLINICAL HISTORY: Altered mental status. COMPARISON STUDY: MRI of the brain January 31, 2019. Head CT March 19, 2019. TECHNIQUE: Utilizing a 1.5 Dali magnet and dedicated coil, multiplanar, multiecho imaging of the bra in was performed without IV contrast. FINDINGS: There are no foci of restricted diffusion to suggest acute infarct. No acute intracranial h emorrhage, midline shift or mass effect is present. Ventricular system is stable. Basilar cisterns ar e patent. There are no extra axial collections. A focus of clear cyst within the anterior right front al lobe is unchanged. A few white matter T2 hyperintense foci suggests mild small vessel disease. A 2 .1 cm right occipital bone lesion is similar to MRI of January 31, 2019. This remains indeterminate. No additional calvarial lesions are present. IMPRESSION: 1. No acute intracranial findings. 2. 2.1 cm right occipital bone lesion which is similar to MRI of January 31, 2019. This remains indeter minate. Electronically signed by: Daryl Keita M.D. 03/20/2019 1:34 PM
[2019-03-20] MEDS: CARBIDOPA/LEVODOPA 25-250 1 EA TAB PO SCH ×5 (14:03→23:29)
[2019-03-20] MEDS: PHENAZOPYRIDINE HCL 100 MG TAB PO SCH ×2 (14:10→20:45)
[2019-03-20] MEDS: GABAPENTIN 600 MG TAB PO SCH ×2 (14:10→20:46)
--- NOTE | 2019-03-20 15:23 | Neurology Consultation ---
Date of Consultation March 20, 2019 Assessment & Plan (1) Acute encephalopathy: This is a 68-year-old female who presented with reported syncopal event acute encephalopathy. Overall likely multifactorial. Patient does see a psychiatrist and I am unsure what her exact psychiatric diagnosis is are (patient seem to exhibit paranoid behavior about her sister lying about her and nursing staff ease dropping on her). When I initially saw her in December it did seem that she was confused on the amount of gabapentin that she was taking compared to our records. It is entirely possible that some of her acute encephalopathy could be due to mixup in medication. Patient also reports dizziness and blurry vision which could go along from an orthostatic or cardiogenic syncopal event. Nothing to suggest seizure. In addition there is no acute changes on MRI. While the patient reports having a diagnosis of Parkinson's disease, she has no signs or symptoms on examination consistent with Parkinson's, and previous notes by [facility] neurology do not state anything about Parkinson's. She was in itially being treated for restless leg syndrome. It is unclear to me how the accurate this diagnosis of Parkinson's is. Recommendations: No additional neurological recommendations at this time. Cardiac evaluation for syncope per primary team. Physical therapy evaluation and treatment She needs to continue follow-up with oncology and neurosurgery for further evaluation of bone lesions/masses. Follow-up with pain management regarding pain issues. If there is any questions or concerns, feel free to call/page me. History of Present Illness Reason for Consultation: Altered mental status Attending Physician: Javier Bowens MD History of Present Illness This is a 68-year-old female who presents due to reported syncopal event and altered mental status. History is very difficult to get from the patient as she tends to frequently veer off topic. From what I can gather she reports passing out twice yesterday. She reports seeing great vision or murrieta streaks in her vision. She feels generally weak. She has been having episodes of dizziness. Still feels that her vision is blurry but otherwise feels that she is at her normal mental baseline. Patient reports that she also feels her balance has been off for the last few months. MRI of the brain report and images were reviewed and unchanged from previous MRI in January. Labs are unremarkable including CBC, complete metabolic panel, ammonia, CK, TSH Patient has been seen by myself once in December for occipital pain on the right. She was found to have a bony mass which is currently being investigated with oncology with an upcoming appointment with neuro-oncology for further evaluation. He has been seeing pain management for injections of posterior head pain. Her history of Parkinson's is questionable. The patient used to see [facility] neurology. Notes were reviewed and there is no mention of Parkinson's disease. It appears that they were initially treating her for restless leg. The patient reports that at some point she was given the diagnosis of Parkinson's but I do not have documentation of this. In addition the patient also reports that she has 2 aneurysms, but again documentation that I have does not show any aneurysms on CTA previously. Past medical history: Reports a history of TIAs (unsure how accurate this is) History of left frontal skull fracture and TBI Patient reports a history of Parkinson's disease, but per review of [facility] neurology notes there is no mention of this, and her symptoms do seem atypical. Sinemet may be treating severe restless leg versus parkinsonism. Patient also reports a history of aneurysms, but per CTA reports there is no aneurysm. (This was also noted and [facility] neurology notes that they had no evidence for aneurysms despite the patient's report) Social history: Patient reports that she lives with her twin sister. Reports that she is normally independent her activities of daily living. 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 Allergies Allergy/AdvReac Type Severity Reaction Status Date / Time nicotine Allergy Intermediate skin Verified 03/19/19 23:42 irritation bee venom protein (honey bee) Allergy Unknown "I PASS Verified 03/19/19 23:42 OUT." bupropion Allergy Unknown unknown Verified 03/19/19 23:42 codeine Allergy Unknown unknown - Verified 03/19/19 23:42 TOLERATES PERCOCET Sulfa (Sulfonamide Allergy Unknown . Verified 03/19/19 23:42 Antibiotics) hydromorphone [From Dilaudid] AdvReac Unresponsiv Verified 03/19/19 23:42 e morphine AdvReac Unresponsiv Verified 03/19/19 23:42 e Home Medications Home Medications Medication Instructions Recorded Confirmed Type amlodipine 5 mg PO QAM 08/07/18 03/19/19 History carbidopa-levodopa [Sinemet] 1 tab PO .. 7 TIMES A DAY 08/07/18 03/19/19 History clonazepam [Klonopin] 0.5 mg PO HS 08/07/18 03/19/19 History fluticasone propionate [Flonase 2 spray INTRANASAL DAILY PRN 08/07/18 03/19/19 History Allergy Relief] hydrochlorothiazide 25 mg PO QAM 08/07/18 03/19/19 History lamotrigine [Lamictal] 50 mg PO HS 08/07/18 03/19/19 History lisinopril 20 mg PO QAM 08/07/18 03/19/19 History omeprazole 20 mg PO QAM 08/07/18 03/19/19 History thiamine HCl (vitamin B1) 100 mg 100 mg PO QAM 11/23/18 03/19/19 History tablet Combivent Respimat 2 puff INHALATION QAM PRN 01/31/19 03/19/19 History baclofen 10 - 20 mg PO Q8 PRN 01/31/19 03/19/19 History clonidine HCl 0.3 mg PO BID 01/31/19 03/19/19 History gabapentin 600 mg PO TID 01/31/19 03/19/19 History cyanocobalamin (vitamin B-12) 500 mcg PO QAM 03/08/19 03/19/19 History [Vitamin B-12] docusate sodium [Colace] 100 mg PO BID #60 cap 03/08/19 03/19/19 Rx famotidine [Pepcid] 40 mg PO HS #30 tab 03/08/19 03/19/19 Rx hydralazine 10 mg PO TID 03/08/19 03/19/19 History sennosides [Senokot] 8.6 mg PO HS #30 tab 03/08/19 03/19/19 Rx trazodone 200 mg PO HS 03/08/19 03/19/19 History aspirin 81 mg PO DAILY 03/19/19 03/19/19 History clonazepam 1 mg PO QAM 03/19/19 03/19/19 History nitrofurantoin monohyd/m-cryst 100 mg PO BIDM 03/19/19 03/19/19 History phenazopyridine [Pyridium] 100 mg PO TID 03/19/19 03/19/19 History potassium chloride 20 meq PO DAILY PRN 03/19/19 03/19/19 History Patient History Medical History COPD (chronic obstructive pulmonary disease) (Chronic) Spinal stenosis (Chronic) GERD (gastroesophageal reflux disease) (Chronic) HTN (hypertension) (Chronic 01/06/15) 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 Lumbago (Chronic) History of anesthesia reaction PT STATES THAT SHE WOKE UP TWICE DURING PREVIOUS COLONOSCOPY AND WAS ADVISED TO ALERT STAFF OF THIS FOR FUTURE PROCEDURES. Surgical History History of spinal surgery (Chronic) LUMBAR FUSION S/P excision of lipoma (Chronic) Status post right knee replacement (Chronic) History of surgery REMOVAL OF RIGHT LABIA FOLLOWING DX OF VULVA CANCER Family History Other Family history non-contributory Social History Preferred Language: Maltese Communication Ability: Effective Visual Impairment: Limited Hearing Ability: Normal Network Admin Required: No Beliefs That Will Affect Care: None marital status: / Current Living Situation: Family Current Living Situation Comment: sister current occupational status: disabled Other Information That Helps Us Care for You: No Feels Safe at Home: Yes Smoking Status: Current every day smoker Tobacco Type: cigarettes Cigarettes Per Day: 4 Second Hand Exposure: No Hx Alcohol Use: No Hx Substance Use: No Review of Systems Review of Systems: All systems reviewed & are unremarkable except as noted in HPI & below Physical Exam Physical Exam: Gen.: Patient is alert and oriented in no acute distress lying in bed Heart: Regular rate and rhythm Extremities: No gross deformities or rashes noted Neurological examination: Mental status: Patient is alert and oriented to person place and time. Able to give own history, but not always certain that her details are accurate. ok fund of knowledge. Attention and concentration normal for the situation. Recent and remote memory intact seem intact (again but not sure that the details are accurate) Speech is fluent without any dysarthria or aphasia noted Cranial nerves: Funduscopic examination was difficult to visualize. Pupils equally round and reactive to light. Extraocular muscles intact without nystagmus. No facial asymmetry noted. Facial sensation intact. Tongue midline. Good palatal elevation. Good shoulder shrug bilaterally. Hearing grossly intact voice. Strength: 5/5 both proximal and distal in all extremities .Tone is normal. No tremors. Specifically no resting tremors. Sensation: Grossly intact to light touch in all extremities Deep tendon reflexes: +1 in bilateral biceps and patellar. Toes are downgoing to plantar stimulation bilaterally Coordination: Patient has good finger to nose without dysmetria Station within the bed is normal. Results & Data Vital Signs (Past 12 Hours) Vital Signs Temp Pulse Pulse Resp BP Pulse Ox 03/20/19 12:00 36.5 C 61 18 154/77 H 97 03/20/19 08:00 36.7 C 53 L 52 L 18 132/78 97
[2019-03-20] MEDS: NITROFURANTOIN MONOHYDRATE 100 MG CAP PO SCH (17:04)
--- NOTE | 2019-03-20 17:08 | Hospitalist Progress Note ---
Date of Service March 20, 2019 Assessment & Plan (1) Syncope: Found on the ground by her sister. CT head, MRI brain both stable from priors. - Seen by neurology - Low concern for seizure. - Possibly due to medication mix-up as she is on baclofen, benzo, gabapentin, lamotrigine, and trazodone - Possibly cardiogenic - Will monitor on tele, monitor HR & BP - PT/OT (2) Parkinson disease: The patient's sister reported that the patient has been taking her medications as directed. - Seen by neurology - Unlikely she actually has Parkinson's disease. - Unclear if we should hold Sinemet vs. continue it for restless leg - Will clarify with neurology (3) Mixed anxiety and depressive disorder: Has psychiatrist at [facility] per the patient. - Carefully restart home meds - Observe mental status (4) Metastatic malignant neoplasm of unknown primary site: MRI of brain on 01/31/19 showed a 17 mm indeterminate focus of marrow replacement involving the right occipital bone. CT c/a/p found several other osteoblastic lesions without a source. Underwent colonscopy with Dr. eMjia without any cancer found. Plan for biospy of the calvarian lesion in the next few weeks with outpatient follow up with Dr. Jernigan. - Outpatient follow up (5) Hypertension: On admission, the patient had normal blood pressure, and presently is only at 145/75. - Continue amlodipine, HCTZ, lisinopril - Hold hydralazine and clonidine - Monitor BP (6) COPD (chronic obstructive pulmonary disease): No wheezing on exam. No reported shortness of breath. - DuoNebs PRN (7) GERD (gastroesophageal reflux disease): Continue H2 salma. (8) DVT prophylaxis: Heparin 5000 units BID Subjective Patient is awake and very irritated about being NPO from overnight. She has flight of ideas and cannot really answer my review of systems. Review of Systems Review of Systems: Unobtainable due to mental health condition Physical Exam Constitutional: WD/WN, vitals as above Eyes: EOM intact bilaterally; no conjunctival abnormality ENMT: external ear and nose normal, oropharynx normal Neck: trachea midline, no thyromegaly normal visual inspection Respiratory: normal respiratory effort, lungs clear to auscultation no respiratory distress Cardiovascular: RRR, no murmur, no edema Gastrointestinal (Abdomen): Inspection/Auscultation: abdomen normal to inspection; abdomen not distended Musculoskeletal: no cyanosis or clubbing, extremities motor strength 5/5 Skin: no rashes, warm and dry Neurologic: moves all extremities and awake Psychiatric: Orientation: alert, oriented to person and oriented to time Motor Behavior: + psychomotor agitation Speech: + pressured speech and + loud speech Affect: + labile affect, + irritable affect and + angry affect Mood: + irritable mood and + angry mood Thought Process: + flight of ideas Results & Data Vital Signs (Past 12 Hours) Vital Signs Temp Pulse Pulse Pulse Resp BP BP 03/20/19 16:27 37.2 C 79 18 146/76 H 03/20/19 12:00 36.5 C 61 18 154/77 H 03/20/19 08:00 36.7 C 53 L 52 L 18 132/78 Pulse Ox 03/20/19 16:27 95 03/20/19 12:00 97 03/20/19 08:00 97
[2019-03-20] MEDS: HEPARIN SOD 5,000 UNIT/0.5 ML VIAL SQ SCH (20:43)
[2019-03-20] MEDS: DOCUSATE SODIUM 100 MG CAP PO SCH (20:46)
[2019-03-20] MEDS ORDERED: clonazePAM 0.5 MG TAB PO SCH (21:00)
[2019-03-20] MEDS ORDERED: lamoTRIgine 25 MG TAB PO SCH (21:00)
[2019-03-20] MEDS ORDERED: TRAZODONE HCL 100 MG TAB PO SCH (21:00)
[2019-03-20] MEDS ORDERED: FAMOTIDINE 20 MG TAB PO SCH (21:00)
[2019-03-21] MEDS: CARBIDOPA/LEVODOPA 25-250 1 EA TAB PO SCH ×3 (03:31→10:07)
[2019-03-21] MEDS: DOCUSATE SODIUM 100 MG CAP PO SCH (08:31)
[2019-03-21] MEDS: GABAPENTIN 600 MG TAB PO SCH (08:33)
[2019-03-21] MEDS: PHENAZOPYRIDINE HCL 100 MG TAB PO SCH (08:33)
[2019-03-21] MEDS: clonazePAM 1 MG TAB PO SCH (08:33)
[2019-03-21] MEDS: NITROFURANTOIN MONOHYDRATE 100 MG CAP PO SCH (08:33)
[2019-03-21] MEDS: HEPARIN SOD 5,000 UNIT/0.5 ML VIAL SQ SCH (08:33)
[2019-03-21 08:43] LABS: Basophils # (auto) 0.01 K/uL (0-0.2); Basophils % (auto) 0.2 %; Eosinophils # (auto) 0.06 K/uL (0-0.5); Eosinophils % (auto) 1.3 %; Hematocrit (blood only) 42.4 % (37-47); Hemoglobin 13.4 g/dL (12.0-16.0); Immature Granulocytes # (auto) 0.01 K/uL (0.00-0.02); Immature Granulocytes % (auto) 0.2 %; Lymphocytes # (auto) 1.93 K/uL (1.2-3.4); Lymphocytes % (auto) 41.4 %; Mean Corpuscular Hgb Conc 31.6 g/dL (32-36); Mean Corpuscular Volume 95.5 fL (80-100); Mean Platelet Volume 10.4 fL (7.4-10.4); Monocytes # (auto) 0.33 K/uL (0.11-0.59); Monocytes % (auto) 7.1 %; Neutrophils # (auto) 2.32 K/uL (1.4-6.5); Neutrophils % (auto) 49.8 %; Platelet Count 211 K/uL (130-400); RDW Coefficient of Variation 14.4 % (11.5-14.5); RDW Standard Deviation 50.6 fL (36.4-46.3); Red Blood Count 4.44 M/uL (4.2-5.4); White Blood Count 4.66 K/uL (4.8-10.8)
[2019-03-21 08:55] LABS: Prothrombin Time 10.1 Seconds (9.0-12.0)
[2019-03-21] MEDS ORDERED: THIAMINE HCL 100 MG TAB PO SCH (09:00)
[2019-03-21] MEDS ORDERED: LISINOPRIL 20 MG TAB PO SCH (09:00)
[2019-03-21] MEDS ORDERED: hydroCHLOROthiazide 25 MG TAB PO SCH (09:00)
[2019-03-21] MEDS ORDERED: CYANOCOBALAMIN 500 MCG TABLET (VITAMIN B-12) PO SCH (09:00)
[2019-03-21] MEDS ORDERED: PANTOprazole 40 MG TAB PO SCH (09:00)
[2019-03-21] MEDS ORDERED: ASPIRIN 81 MG ECTAB PO SCH (09:00)
[2019-03-21] MEDS ORDERED: AMLODIPINE BESYLATE 5 MG TAB PO SCH (09:00)
[2019-03-21 09:18] LABS: Albumin Level 3.7 gm/dl (3.4-5.0); Calcium 9.6 mg/dl (8.5-10.1); Creatinine Clr Calc Pharmacy 91.3 ml/min; Est GFR (African American) 107.2; Est GFR (Non-African American) 92.5; Magnesium 1.8 mg/dl (1.8-2.4); Potassium 3.6 mmol/L (3.5-5.1)
[2019-03-21 09:26] LABS: Albumin Globulin Ratio 1.2 (0.9-2); Bilirubin,Total 0.4 mg/dl (0.2-1); Total Protein 6.7 gm/dl (6.4-8.2)
[2019-03-21] MEDS ORDERED: ACETAMINOPHEN 325 MG TAB PO PRN (10:39)
[2019-03-21] MEDS ORDERED: ACETAMINOPHEN 325 MG TAB PO SCH (12:00)
--- NOTE | 2019-03-21 18:27 | Discharge Summary ---
Date of Service March 21, 2019 Admission HPI Per Admitting Provider The patient is a 68-year-old female with a past medical history including Parkinson's, hypertension, anxiety with depression, GERD, spinal stenosis, and COPD who presents to the emergency department after being found lying on the floor for an estimated 5 hours by her sister. Her sister reports that the patient was confused upon awakening. The patient does report that she feels she may have hit her head. The patient was noted to be very anxious when she was in the emergency department, and stated that she was unable to calm herself down. The ED nurses and physicians report that the patient feels that she is unable to hold herself sitting upright in bed, and is unable to hold her arms up either. Principal Diagnosis Altered mental status Discharge Exam Constitutional WD/WN, vitals as above Eyes EOM intact bilaterally; no conjunctival abnormality ENMT external ear and nose normal, oropharynx normal Neck trachea midline, no thyromegaly normal visual inspection Respiratory normal respiratory effort, lungs clear to auscultation no respiratory distress Cardiovascular RRR, no murmur, no edema Gastrointestinal (Abdomen) Inspection/Auscultation: abdomen normal to inspection; abdomen not distended Musculoskeletal no cyanosis or clubbing, extremities motor strength 5/5 Skin no rashes, warm and dry Neurologic moves all extremities and awake Psychiatric Orientation: alert, oriented to person and oriented to time Motor Behavior: + psychomotor agitation Speech: + pressured speech and + loud speech Affect: + labile affect, + irritable affect and + angry affect Mood: + irritable mood and + angry mood Thought Process: + flight of ideas Discharge Data Allergies Allergy/AdvReac Type Severity Reaction Status Date / Time nicotine Allergy Intermediate skin Verified 03/19/19 23:42 irritation bee venom protein (honey bee) Allergy Unknown "I PASS Verified 03/19/19 23:42 OUT." bupropion Allergy Unknown unknown Verified 03/19/19 23:42 codeine Allergy Unknown unknown - Verified 03/19/19 23:42 TOLERATES PERCOCET Sulfa (Sulfonamide Allergy Unknown . Verified 03/19/19 23:42 Antibiotics) hydromorphone [From Dilaudid] AdvReac Unresponsiv Verified 03/19/19 23:42 e morphine AdvReac Unresponsiv Verified 03/19/19 23:42 e Consultations 03/19/19 22:37 ED Decision to Admit Stat 03/20/19 00:28 Consult Case Management - Discharge Planning Routine Consult Neurology Routine Ordered Studies 03/19/19 20:15 CT head/brain wo con Stat 03/20/19 01:51 MR brain wo con Routine Hospital Course (1) Syncope: Found on the ground by her sister. CT head, MRI brain both stable from priors. - Seen by neurology - Low concern for seizure. - Low concern for cardiogenic - Hemodynamics stable; no telemetry events to in dicate arrythmia - Possibly due to medication mix-up as she is on baclofen, benzo, gabapentin, lamotrigine, and trazodone - I did encourage her to stop her hydralazine and clonipine on discharge. Off those two agents, her BP ranged from 130/70 to 150/80. Her BP was lower on admission. My concern is the clonidine and/or hydralazine could be causing big BP fluxuations which could have caused her syncope. (2) Parkinson disease: The patient's sister reported that the patient has been taking her medications as directed. - Seen by neurology - Unlikely she actually has Parkinson's disease as she does not have this diagnosis on outpatient neuro notes. (3) Mixed anxiety and depressive disorder: Has psychiatrist at [facility] per the patient. - Carefully restart home meds - Observe mental status - Stable (4) Metastatic malignant neoplasm of unknown primary site: MRI of brain on 01/31/19 showed a 17 mm indeterminate focus of marrow replacement involving the right occipital bone. CT c/a/p found several other osteoblastic lesions without a source. Underwent colonscopy with Dr. Mejia without any cancer found. Plan for biospy of the calvarian lesion in the next few weeks with outpatient follow up with Dr. Jernigan. - Outpatient follow up (5) Hypertension: On admission, the patient had normal blood pressure, and presently is only at 145/75. - Continue amlodipine, HCTZ, lisinopril - Held hydralazine and clonidine on discharge. (6) COPD (chronic obstructive pulmonary disease): No wheezing on exam. No reported shortness of breath. - DuoNebs PRN (7) GERD (gastroesophageal reflux disease): Continue H2 salma. (8) DVT prophylaxis: Heparin 5000 units BID Total Time Total Time Spent Total Time Spent (In Minutes): 35 Total Time Includes: Examination of the Patient and Discharge Planning Discharge Plan Discharge Items Patient Disposition: Home - Self-Care Reason For Visit: ALTERED MENTAL STATUS Discharge Diagnosis: Altered mental status, temporary paralysis Discharge Goals: Decrease discomfort Activity: Resume your previous activity Non-emergency contact: Primary Care Provider and Psychiatrist Call non-emergency contact if: your symptoms worsen and your pain is not controlled Follow-up/Referrals: PCP,NO [Primary Care Provider] - Diet: Regular Addtl Provider Instructions: Ms. Caro, Syed were admitted to the hospital after being found on the ground by your sister. We were worried about a neurologic process or possibly a heart issue. We monitored your heart rhythm, and did not find any abnormal rhythms. We also did an MRI of your brain which did not show any stroke. The neurologist saw you and felt this was not a seizure. Finally, we checked all your labs which all looked normal with maybe a small amount of dehydration. We gave you some IV fluids, and this resolved too. Please continue taking the Macrobid (nitrofurantoin) that you were prescribed for the UTI. We did see evidence that it's still there, so finishing that course of antibiotics may be helpful. Please also drink enough fluids for your urine to be light yellow. This may help prevent future UTIs and will prevent any dehydration which might cause low blood pressures and passing out. We did hold some of your blood pressure medications. Slight dehydration and your blood pressure pills could make you weak enough to fall and possibly lose consciousness. The hardest to take are the ones that you take 2 or 3 times per day. Hold these until you see Ms. Kirkpatrick in the office. Please follow up with your PCP and psychiatrist at [facility]. Prescriptions: Continued thiamine HCl (vitamin B1) 100 mg tablet 100 mg PO QAM RF: 0 cyanocobalamin (vitamin B-12) [Vitamin B-12] 500 mcg Tablet 500 mcg PO QAM RF: 0 trazodone 100 mg tablet 200 mg PO HS RF: 0 sennosides [Senokot] 8.6 mg tablet 8.6 mg PO HS Qty: 30 RF: 0 docusate sodium [Colace] 100 mg capsule 100 mg PO BID Qty: 60 RF: 0 famotidine [Pepcid] 40 mg tablet 40 mg PO HS Qty: 30 RF: 0 aspirin 81 mg Tablet,Delayed Release (Dr/Ec) 81 mg PO DAILY RF: 0 clonazepam 1 mg tablet 1 mg PO QAM RF: 0 nitrofurantoin monohyd/m-cryst 100 mg capsule 100 mg PO BIDM RF: 0 potassium chloride 20 mEq Tablet Extended Release 20 meq PO DAILY PRN (Reason: Unknown) RF: 0 carbidopa-levodopa [Sinemet] 25-250 mg Tablet 1 tab PO .. 7 TIMES A DAY RF: 0 lisinopril 20 mg Tablet 20 mg PO QAM RF: 0 clonazepam [Klonopin] 0.5 mg Tablet 0.5 mg PO HS RF: 0 amlodipine 5 mg Tablet 5 mg PO QAM RF: 0 lamotrigine [Lamictal] 25 mg Tablet 50 mg PO HS RF: 0 omeprazole 20 mg Capsule,Delayed Release(Dr/Ec) 20 mg PO QAM RF: 0 hydrochlorothiazide 25 mg Tablet 25 mg PO QAM RF: 0 fluticasone propionate [Flonase Allergy Relief] 50 mcg/actuation [place],Suspension 2 spray INTRANASAL DAILY PRN (Reason: Congestion) RF: 0 gabapentin 600 mg tablet 600 mg PO TID RF: 0 Combivent Respimat 20-100 mcg/actuation Mist 2 puff INHALATION QAM PRN (Reason: Shortness Of Breath Or Wheezing) RF: 0 baclofen 10 mg tablet 10 - 20 mg PO Q8 PRN (Reason: neck/back pain,stiffness & h/a) RF: 0 Discontinued hydralazine 10 mg tablet 10 mg PO TID RF: 0 phenazopyridine [Pyridium] 100 mg Tablet 100 mg PO TID RF: 0 clonidine HCl 0.3 mg tablet 0.3 mg PO BID RF: 0 Stand-Alone Forms: [facility] Discharge Orders: Discharge Order (Routine); Ordered 03/21/19 Ordered By: Javier Bowens Admission Data Admit Date/Time: 03/19/19 23:12 Attending Provider: Javier Bowens Admit Provider: Kameron Wise Primary Care Provider: PCP,NO Other Providers: Subhash Ponce ; Javier Bowens Service: Telemetry Medical Other Interventions: Discharge Summary Assessment (RN) Last Done: 03/21/19 11:46 DC Date/Time DO NOT enter until pt leaves facility: 03/21/19 13:01
== END 2019-03-21 13:01 | disposition home or self-care (01) | DRG 948 ==
LOC: ED 19:34 → SUATTDRO 23:12 → 2W 23:12

== ENCOUNTER 2019-04-11 05:18 | Inpatient (IN) ==
--- NOTE | 2019-04-11 05:32 | Emergency Department Note ---
ED Provider Note Name: Patricia Caro Age: 68F Arrives Via: EMS Informant: PT, EMS CC: Laying in Road HPI: 68 female arrives for evaluation of laying in road. Patient well known to me from just a few hours earlier when I evaluated her for reported syncope, headache, brain cancer, chest pain, amongst others. She left AMA mid way through evaluation. She was found laying about a mile from hospital on the side [place] [address] stating she couldn't walk any further. She was brought back to ED for repeat evaluation. Patient states she doesn't want to be here. States continuing to have headache. Admits that all she wants is narcotics for her headache. She denies anything but being tired and having headache currently. Adamant she is not suicidal, homicidal. She continues to state that she passes out several times daily. She states she has continued chest pains all the time. 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 She claims labia was removed years ago due to cancer (of note... hospital note by same physician states he has no record of ever doing such a procedure and that on his exam her labia are both normal). She was to have brain biopsy of lesion seen on MRI down at [place] last month but she cancelled this so she could go on a vacation. She wishes to be transferred there now to have this done. Patient denies nausea, vomiting, neck pain, back pain, leg weakness, urinary/bowel symptoms, fevers, rashes. She denies taking any medications since discharge. Denies etoh/drug use. Admits she was using Oxy IR with tylenol until yesterday when she ran out of it and now has return of pain. I will note she recieved an Rx for 90 tables of 5mg Oxy IR on 03/22/19 ROS: See above HPI for pertinent positives & negatives. A total of 10 systems reviewed and were otherwise negative. Past Medical History: [place], GERD, Neuralgia, Hyperlipidemia, osteoarthritis, copd, spinal stenosis, htn, depression, anxiety, emphysema. Parkinson (though neurologist notes no evidence of this) Past Surgical History: lumbar surgery, knee replacement right, lipoma Family History: Father of metastatic CA Social History: , Smoker, Lives with sister, feels safe at home, denies etoh/drug use Home Medications: amlodipine, aspirin, sinemet, clonazepam, famotidine, flonase, gabapentin, hyrdalazine, hydrochlorothiazide, lamictal, lisinopril, omeprazole, trazodone, potassium Allergies nicotine, bupropion, codeine, sulfa Physical: Vitals: BP 176/99, P 78, R 18, R 36.4, O 95% Exam: GENERAL: Patient is well appearing and in no acute distress. EYES: No scleral icterus, unremarkable pupils. ENT: Mucous membranes moist, no nasal congestion. NECK: No masses appreciated, no meningismus, trachea is midline. RESPIRATORY: No dyspnea. Clear to auscultation and equal bilaterally. No wheeze, no rhonchi. CARDIOVASCULAR: Regular rate and rhythm. No murmurs, rubs, gallops appreciated. GASTROINTESTINAL: Abdomen soft, non-tender, no peritonitis. Bowel sounds positive. No masses appreciated. BACK: No midline tenderness, no CVA tenderness EXTREMITIES: Normal motion all extremities, no cyanosis, no edema. NEUROLOGIC: Alert and oriented, no acute motor or sensory deficits, no focal weakness, cranial nerves grossly intact. SKIN: No rash, no jaundice, no diaphoresis. PSYCH: Admits depression, Admits Anxiety, Denies Suicidal Ideation/Plan, Denies homicidal Ideation, denies hallucinations ED Course: Prior Medical Record, Triage/Nursing Notes, Medications, Allergies reviewed by Me Vital Signs: reviewed and remarkable for HTN Labs: Reviewed and remarkable for being unremarkable Interventions: oxy IR 5mg PO Imaging: [facility] Radiologist interpretation reviewed by me: "CT CHEST With Contrast: Comparison: CT dated 03/08/2019. No evidence of pulmonary embolism. No focal consolidation, pulmonary edema, pleural effusion or pneumothorax. Normal cardiac size. No significant pericardial effusion. Radiologist: Adenike Magaña MD" EKG: Per My Interpretation: Indication - Psych Eval: NSR 67 bpm without ectopy nor ischemia. qtc 441. Similar to earlier EKG on this date. Consults: Mental Health Case Management Reassessments/Times: Multiple - patient continues to make off hand suicidal statements but denies she is going to kill self. She continues to be condescending to staff and to me. Blood pressure: Elevated - [place] to be Situation. Disposition: Signed out to Dr Naidu pending further evaluation and psych eval Differentials: Mood Disorder, Overdose, Infectious, Electrolyte Abnormality, Cardiac, Hepatic, Endocrine, Toxicologic, Neurologic, amongst other pathologies entertained. Medical Decision Makin yr old female well known to me from just a few hours when she left AMA. At that time she had made no suicidal gestures nor comments. Now however, she has clearly put herself in danger, is making vague statements to wanting to and seems even more agitated than earlier. I will note review of chart does show suicidal gestures in past. She is demanding pain medications though I do not feel that that is indicated. She has used 90 tablets of Oxy IR in the last 20 days. There is no clear evidence of swelling on her head that she is referring too. She has known lesion on brain, that very much may be cancer, but it is similar per rads read to Jan 2019, and she has cancelled scheduled biopsy so that she could go on vacation instead. 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 Patient appears to be entering psychotic state and is making suicidal gestures and vague suicidal threats. After tonights events I feel she clearly now needs psychiatric evaluat ion prior to discharge. I will note the cavalier way she discussing dieing, and having just being found laying on the side of highway in the middle of the night makes me feel she has a wish to , though the is very evasive when actually discussing is she is suicidal. She clearly has a chronic pain syndrome and review of PDMP makes it clear she has been through 90 Oxy in last 20 days, thus I will give her single Oxy IR now to try and avoid acute withdrawal. I will note I am not entirely sure what her pain is from though she states it is from her brain tumor (which again, has not been biopsied, because she went on vacation instead of having the procedure). Pain management notes pain is due to cervical spondylosis. Signed patient out to Dr Naidu pending medical clearance. Impression: Acute Psychosis Suicidal Gesture Chronic Pain Brain Lesion Constantino Flores MD Impression & Plan Acute psychosis, Suicide gesture, Chronic pain, Brain lesion Past Med/Surg History Medical History Stroke (Acute) Stomach ulcer (Acute) Occipital neuralgia (Acute) Metastatic cancer (Acute) Hyperlipidemia (Acute) Generalized osteoarthritis of multiple sites (Acute) Benign lipomatous tumor (Acute) Arthritis (Acute) Aneurysm of basilar artery (Acute) Allergic rhinitis (Acute) COPD (chronic obstructive pulmonary disease) (Chronic) Spinal stenosis (Chronic) GERD (gastroesophageal reflux disease) (Chronic) HTN (hypertension) (Chronic 01/06/15) 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 Lumbago (Chronic) History of anesthesia reaction PT STATES THAT SHE WOKE UP TWICE DURING PREVIOUS COLONOSCOPY AND WAS ADVISED TO ALERT STAFF OF THIS FOR FUTURE PROCEDURES. Surgical History History of spinal surgery (Chronic) LUMBAR FUSION S/P excision of lipoma (Chronic) Status post right knee replacement (Chronic) History of surgery REMOVAL OF RIGHT LABIA FOLLOWING DX OF VULVA CANCER Social History Preferred Language: Thai Communication Ability: Effective Visual Impairment: Limited Hearing Ability: Normal Beliefs That Will Affect Care: None marital status: / Current Living Situation: Family Current Living Situation Comment: sister current occupational status: disabled Feels Safe at Home: Yes Smoking Status: Current every day smoker Tobacco Type: cigarettes Cigarettes Per Day: 4 Second Hand Exposure: No Hx Alcohol Use: No Hx Substance Use: No Results & Data Vital Signs Vital Signs - 24 hr 04/11/19 05:22 04/11/19 07:04 Temperature 36.4 C L Temperature Source Oral Sepsis Recent Fever Within 48 Hours No Sepsis Action Taken by Nursing No Action Required Pulse Rate 78 Pulse Rate [Finger] 62 Pulse Rhythm Regular Pulse Strength Normal Respiratory Rate 18 20 Respiratory Effort / Characteristics Non-Labored Spontaneous Respiratory Depth Normal Respiratory Pattern Regular Blood Pressure 176/99 H Blood Pressure [Right Arm] 150/85 H Blood Pressure Mean 124 Blood Pressure Mean [Right Arm] 106 Pulse Oximetry 95 100 Oxygen Delivery Method Room Air Room Air Laboratory Data Result diagrams: 04/11/19 05:57 04/11/19 05:57 Lab Results 04/11/19 04/11/19 04/11/19 Range/Units 05:57 05:57 05:57 WBC 7.53 (4.8-10.8) K/uL RBC 4.54 (4.2-5.4) M/uL Hgb 13.7 (12.0-16.0) g/dL Hct 43.4 (37-47) % MCV 95.6 (80-100) fL MCH 30.2 (25-34) pg MCHC 31.6 L (32-36) g/dL RDW Std Deviation 51.9 H (36.4-46.3) fL RDW Coeff of Ginger 14.8 H (11.5-14.5) % Plt Count 256 (130-400) K/uL MPV 10.2 (7.4-10.4) fL Immature Gran % (Auto) 0.1 % Neut % (Auto) 76.7 % Lymph % (Auto) 15.8 % [place] % (Auto) 7.0 % Eos % (Auto) 0.3 % Baso % (Auto) 0.1 % Immature Gran # (Auto) 0.01 (0.00-0.02) K/uL Neut # (Auto) 5.77 (1.4-6.5) K/uL Lymph # (Auto) 1.19 L (1.2-3.4) K/uL [place] # (Auto) 0.53 (0.11-0.59) K/uL Eos # (Auto) 0.02 (0-0.5) K/uL Baso # (Auto) 0.01 (0-0.2) K/uL Sodium 143 (136-145) mmol/L Potassium 3.9 (3.5-5.1) mmol/L Chloride 109 H (98-107) mmol/L Carbon Dioxide 27 (21-32) mmol/L Anion Gap 7.0 (3-11) BUN 18 (7-18) mg/dl Creatinine 0.63 (0.6-1.2) mg/dl Est Cr Clr Drug Dosing 94.2 ml/min Est GFR ( Amer) 108.3 Est GFR (Non-Af Amer) 93.5 BUN/Creatinine Ratio 27.8 H (10-20) Glucose 82 (70-99) mg/dl Calcium 9.4 (8.5-10.1) mg/dl Total Bilirubin 0.4 (0.2-1) mg/dl AST 10 L (15-37) U/L ALT 8 L (12-78) U/L Alkaline Phosphatase 71 (45-117) U/L Troponin I < 0.015 (0-0.045) ng/ml Total Protein 7.3 (6.4-8.2) gm/dl Albumin 3.8 (3.4-5.0) gm/dl Globulin 3.5 (2.5-4.0) gm/dl Albumin/Globulin Ratio 1.1 (0.9-2) TSH 0.941 (0.300-4.500) uIu/ml Salicylates 2.6 L (2.8-20) mg/dl Acetaminophen 3 L (10-30) ug/ml Ethyl Alcohol mg/dL (0-3) mg/dl 04/11/19 Range/Units 05:57 WBC (4.8-10.8) K/uL RBC (4.2-5.4) M/uL Hgb (12.0-16.0) g/dL Hct (37-47) % MCV (80-100) fL MCH (25-34) pg MCHC (32-36) g/dL RDW Std Deviation (36.4-46.3) fL RDW Coeff of Ginger (11.5-14.5) % Plt Count (130-400) K/uL MPV (7.4-10.4) fL Immature Gran % (Auto) % Neut % (Auto) % Lymph % (Auto) % [place] % (Auto) % Eos % (Auto) % Baso % (Auto) % Immature Gran # (Auto) (0.00-0.02) K/uL Neut # (Auto) (1.4-6.5) K/uL Lymph # (Auto) (1.2-3.4) K/uL [place] # (Auto) (0.11-0.59) K/uL Eos # (Auto) (0-0.5) K/uL Baso # (Auto) (0-0.2) K/uL Sodium (136-145) mmol/L Potassium (3.5-5.1) mmol/L Chloride (98-107) mmol/L Carbon Dioxide (21-32) mmol/L Anion Gap (3-11) BUN (7-18) mg/dl Creatinine (0.6-1.2) mg/dl Est Cr Clr Drug Dosing ml/min Est GFR ( Amer) Est GFR (Non-Af Amer) BUN/Creatinine Ratio (10-20) Glucose (70-99) mg/dl Calcium (8.5-10.1) mg/dl Total Bilirubin (0.2-1) mg/dl AST (15-37) U/L ALT (12-78) U/L Alkaline Phosphatase (45-117) U/L Troponin I (0-0.045) ng/ml Total Protein (6.4-8.2) gm/dl Albumin (3.4-5.0) gm/dl Globulin (2.5-4.0) gm/dl Albumin/Globulin Ratio (0.9-2) TSH (0.300-4.500) uIu/ml Salicylates (2.8-20) mg/dl Acetaminophen (10-30) ug/ml Ethyl Alcohol mg/dL < 3.0 (0-3) mg/dl Administered Medications Ioversol (Optiray 320 125ml) 119 ml IV ONCE PRN PRN Reason: Interaction Checking Stop: 04/15/19 06:05 Last Admin: 04/11/19 06:07 Dose: 119 ml Documented by: [id number] Discontinued Medications Oxycodone HCl (Roxicodone Immediate Rel) 5 mg PO NOW STA Stop: 04/11/19 06:28 Last Admin: 04/11/19 06:31 Dose: 5 mg Documented by: [id number] Discharge Plan Visit Data Chief Complaint: Pain (Generalized) Stated Complaint: illness ED Provider: Ajith Naidu Discharge Problem: Acute psychosis, Suicide gesture, Chronic pain, Brain lesion Forms Stand Alone Forms: My [facility] [employer] Prescriptions Prescriptions: No Action hydralazine 10 mg tablet 10 mg PO .TAKE 1 TABLET 3 TIME Qty: 90 RF: 0 trazodone 100 mg tablet 200 mg PO HS RF: 0 famotidine [Pepcid] 40 mg tablet 40 mg PO HS Qty: 30 RF: 0 aspirin 81 mg Tablet,Delayed Release (Dr/Ec) 81 mg PO DAILY RF: 0 clonazepam 1 mg tablet 1 mg PO QAM RF: 0 potassium chloride 20 mEq Tablet Extended Release 20 meq PO DAILY PRN (Reason: Unknown) RF: 0 carbidopa-levodopa [Sinemet] 25-250 mg Tablet 1 tab PO .. 7 TIMES A DAY RF: 0 lisinopril 20 mg Tablet 20 mg PO QAM RF: 0 clonazepam [Klonopin] 0.5 mg Tablet 0.5 mg PO HS RF: 0 amlodipine 5 mg Tablet 5 mg PO QAM RF: 0 lamotrigine [Lamictal] 25 mg Tablet 50 mg PO HS RF: 0 omeprazole 20 mg Capsule,Delayed Release(Dr/Ec) 20 mg PO QAM RF: 0 hydrochlorothiazide 25 mg Tablet 25 mg PO QAM RF: 0 fluticasone propionate [Flonase Allergy Relief] 50 mcg/actuation [place],Suspension 2 spray INTRANASAL DAILY PRN (Reason: Congestion) RF: 0 gabapentin 600 mg tablet 600 mg PO TID RF: 0 Combivent Respimat 20-100 mcg/actuation Mist 2 puff INHALATION QAM PRN (Reason: Shortness Of Breath Or Wheezing) RF: 0 Discharge Problem: Suicide gesture Qualifiers: Encounter type: initial encounter Qualified Code(s): X83.8XXA - Intentional se lf-harm by other specified means, initial encounter Chronic pain Qualifiers: Chronic pain type: other chronic pain Qualified Code(s): G89.29 - Other chronic pain
[2019-04-11] MEDS ORDERED: OPTIRAY 320 125ml IV PRN (06:06)
[2019-04-11 06:09] LABS: Basophils # (auto) 0.01 K/uL (0-0.2); Basophils % (auto) 0.1 %; Eosinophils # (auto) 0.02 K/uL (0-0.5); Eosinophils % (auto) 0.3 %; Hematocrit (blood only) 43.4 % (37-47); Hemoglobin 13.7 g/dL (12.0-16.0); Immature Granulocytes # (auto) 0.01 K/uL (0.00-0.02); Immature Granulocytes % (auto) 0.1 %; Lymphocytes # (auto) 1.19 K/uL (1.2-3.4); Lymphocytes % (auto) 15.8 %; Mean Corpuscular Hgb Conc 31.6 g/dL (32-36); Mean Corpuscular Volume 95.6 fL (80-100); Mean Platelet Volume 10.2 fL (7.4-10.4); Monocytes # (auto) 0.53 K/uL (0.11-0.59); Neutrophils # (auto) 5.77 K/uL (1.4-6.5); Neutrophils % (auto) 76.7 %; Platelet Count 256 K/uL (130-400); RDW Coefficient of Variation 14.8 % (11.5-14.5); RDW Standard Deviation 51.9 fL (36.4-46.3); Red Blood Count 4.54 M/uL (4.2-5.4); White Blood Count 7.53 K/uL (4.8-10.8)
[2019-04-11] MEDS ORDERED: OXYCODONE HCL IR 5 MG TAB (IMMEDIATE RELEASE) PO STA (06:27)
[2019-04-11 06:30] LABS: Alanine Aminotransferase 8 U/L (12-78); Albumin Level 3.8 gm/dl (3.4-5.0); Aspartate Aminotransferase 10 U/L (15-37); BUN Creatinine Ratio 27.8 (10-20); Blood Urea Nitrogen 18 mg/dl (7-18); Calcium 9.4 mg/dl (8.5-10.1); Carbon Dioxide 27 mmol/L (21-32); Chloride 109 mmol/L (98-107); Creatinine Clr Calc Pharmacy 94.2 ml/min; Est GFR (African American) 108.3; Est GFR (Non-African American) 93.5; Glucose 82 mg/dl (70-99); Potassium 3.9 mmol/L (3.5-5.1); Sodium 143 mmol/L (136-145)
[2019-04-11 06:37] LABS: Albumin Globulin Ratio 1.1 (0.9-2); Alkaline Phosphatase 71 U/L (45-117); Bilirubin,Total 0.4 mg/dl (0.2-1); Globulin 3.5 gm/dl (2.5-4.0); Total Protein 7.3 gm/dl (6.4-8.2)
[2019-04-11 06:40] LABS: Salicylate 2.6 mg/dl (2.8-20)
[2019-04-11 06:48] LABS: Troponin I < 0.015 ng/ml (0-0.045)
--- NOTE | 2019-04-11 07:43 | CT Scan Report ---
CHEST CTA for PULMONARY ARTERIES CT DOSE: 421.01 mGy.cm HISTORY: Atypical chest pain., SOB, elevated Dimer TECHNIQUE: Multiaxial CT images of the chest were performed following the intravenous administration of contrast to evaluate the pulmonary arteries. Maximal intensity projection images were also obtaine d. A dose lowering technique was utilized adhering to the principles of ALARA. COMPARISON STUDY: Chest CTA 03/08/2019. FINDINGS: There is a normal caliber thoracic aorta with no evidence for dissection. There is no evide nce for pulmonary embolus. No pleural effusions. No pneumothorax. The liver and spleen are unremarkab le. No mediastinal or hilar lymphadenopathy. The central airways are patent. Lingula atelectasis. Mil d emphysema. A few scattered tree-in-bud nodular opacities which appear to be chronic. IMPRESSION: No evidence for pulmonary embolus. No significant change compared to the prior study. Electronically signed by: Fam Maldonado M.D. 04/11/2019 7:42 AM
--- NOTE | 2019-04-11 07:45 | Emergency Department Note ---
ED Visit Note Received patient in sign out. Pt is here under 302 warrant after eloping and [place] the side of [place] [address] [place] [address]. In reviewing this patient's chart there is an obvious psychiatric component in her supposed medical diagnoses. She is clearly a threat to herself. The case was discussed with case fire management officer. I feel that the patient is a threat to herself and am worried that she will sign herself out. Because of this 302 warrant was not forced. The case was then discussed with 3 S. who readily accepted the patient. Patient's medications were given to her in the emergency department. . : Suicide gesture Qualifiers: Encounter type: initial encounter Qualified Code(s): X83.8XXA - Intentional self-harm by other specified means, initial encounter Chronic pain Qualifiers: Chronic pain type: other chronic pain Qualified Code(s): G89.29 - Other chronic pain
[2019-04-11] MEDS ORDERED: clonazePAM 1 MG TAB PO STA (08:47)
[2019-04-11] MEDS ORDERED: hydroCHLOROthiazide 25 MG TAB PO STA (08:47)
[2019-04-11] MEDS ORDERED: FAMOTIDINE 20 MG TAB PO ONE (08:47)
[2019-04-11] MEDS ORDERED: ASPIRIN CHEW 324 MG PO STA (08:47)
[2019-04-11] MEDS ORDERED: LISINOPRIL 20 MG TAB PO STA (08:47)
[2019-04-11] MEDS ORDERED: AMLODIPINE BESYLATE 5 MG TAB PO SCH (09:00)
[2019-04-11] MEDS: HydrALAZINE 10 MG TAB PO SCH ×3 (09:24→21:53)
[2019-04-11] MEDS: GABAPENTIN 600 MG TAB PO SCH ×3 (09:25→21:53)
[2019-04-11] MEDS: CARBIDOPA/LEVODOPA 25-250 1 EA TAB PO SCH ×4 (09:25→21:53)
[2019-04-11 09:35] LABS: Amphetamines+Metham, Urine Neg (Neg); Barbiturates, Urine Neg (Neg); Benzodiazepine, Urine Neg (Neg); Cocaine, Urine Neg (Neg); MDMA (Ecstacy), Urine Neg (Neg); Methadone, Urine Neg (Neg); Opiate, Urine Pos (Neg); Phencyclidine, Urine Neg (Neg)
[2019-04-11 09:51] LABS: Appearance Urine Clear (Clear); Bilirubin Urine Negative (Negative); Blood Urine Negative (Negative); Color Urine Yellow; Glucose Urine UA Negative (Negative); Ketones Urine 2+ (Negative); Leukocyte Esterase Urine Negative (Negative); Nitrite Urine Negative (Negative); Protein Urine Negative (Negative); Specific Gravity Urine <= 1.005 (1.000-1.030); Urobilinogen Urine Negative (Negative)
[2019-04-11] MEDS ORDERED: MAGNESIUM HYDROXIDE SUSP 30 ML UDC PO PRN (14:52)
[2019-04-11] MEDS ORDERED: ALUMINUM/MAGNESIUM SUSP 30 ML UDC PO PRN (14:52)
[2019-04-11] MEDS ORDERED: BISMUTH SUBSALICYLATE PER ML OMNICELL CHARGE PO PRN (14:52)
[2019-04-11] MEDS ORDERED: SODIUM CHLORIDE 0.65% NA SOLN 45 ML (OCEAN) PRN (14:52)
[2019-04-11] MEDS ORDERED: FLUTICASONE PROPIONATE NA SPR 16 GM BTL PRN (14:54)
[2019-04-11] MEDS ORDERED: POTASSIUM CHLORIDE 20 MEQ TABCR PO PRN (14:54)
[2019-04-11] MEDS ORDERED: IPRATROPIUM BROMIDE/ALBUTEROL respimat INH INH PRN (14:54)
[2019-04-11] MEDS ORDERED: CARBIDOPA/LEVODOPA 25-250 1 EA TAB PO SCH (15:00)
[2019-04-11] MEDS ORDERED: TRAMADOL HCL 50 MG TABLET PO PRN (16:41)
--- NOTE | 2019-04-11 17:28 | History & Physical ---
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 Stop: 05/11/19 14:59 Hydrochlorothiazide (Hctz) 25 mg PO QAM [facility] Stop: 05/12/19 08:59 Hydroxyzine HCl (Vistaril) 25 mg PO Q4H PRN PRN Reason: Anxiety Stop: 05/11/19 14:51 Hydroxyzine HCl (Vistaril) 50 mg PO HSZ PRN PRN Reason: Insomnia Stop: 05/11/19 14:51 Ioversol (Optiray 320 125ml) 119 ml IV ONCE PRN PRN Reason: Interaction Checking Stop: 04/15/19 06:05 Last Admin: 04/11/19 06:07 Dose: 119 ml Documented by: Lamotrigine (Lamictal) 50 mg PO HS [facility] Stop: 05/11/19 21:59 Lisinopril (Zestril) 20 mg PO QAM [facility] Stop: 05/12/19 08:59 Magnesium Hydroxide (Milk Of Magnesia) 30 ml PO DAILY PRN PRN Reason: Heartburn Stop: 05/11/19 14:51 Pantoprazole Sodium (Protonix) 40 mg PO QAM [facility] Stop: 05/12/19 08:59 Potassium Chloride (Klor-Con M20) 20 meq PO DAILY PRN PRN Reason: Unknown Stop: 05/11/19 14:53 Sodium Chloride ([place] Nasal) 1 - 2 sprays NA PRN PRN PRN Reason: Nasal Dryness/Congestion Stop: 05/11/19 14:51 Tramadol HCl (Ultram) 50 mg PO Q6H PRN PRN Reason: Pain Stop: 05/11/19 16:40 Trazodone HCl (Desyrel) 200 mg PO HS [facility] Stop: 05/11/19 21:59 CPT Code CPT Code Initial Hospital Care: 43176
[2019-04-11] MEDS: lamoTRIgine 25 MG TAB PO SCH (21:53)
[2019-04-11] MEDS: clonazePAM 0.5 MG TAB PO SCH (21:53)
[2019-04-11] MEDS: TRAZODONE HCL 100 MG TAB PO SCH (21:53)
[2019-04-11] MEDS: FAMOTIDINE 20 MG TAB PO SCH (21:54)
[2019-04-12] MEDS: ACETAMINOPHEN 325 MG TAB PO PRN (06:51)
[2019-04-12] MEDS: HydrALAZINE 10 MG TAB PO SCH ×3 (09:13→21:06)
[2019-04-12] MEDS: clonazePAM 0.5 MG TAB PO SCH ×2 (09:13→21:06)
[2019-04-12] MEDS: hydroCHLOROthiazide 25 MG TAB PO SCH (09:13)
[2019-04-12] MEDS: AMLODIPINE BESYLATE 5 MG TAB PO SCH (09:13)
[2019-04-12] MEDS: PANTOprazole 40 MG TAB PO SCH (09:13)
[2019-04-12] MEDS: GABAPENTIN 600 MG TAB PO SCH ×3 (09:13→21:06)
[2019-04-12] MEDS: CARBIDOPA/LEVODOPA 25-250 1 EA TAB PO SCH ×4 (09:13→21:06)
[2019-04-12] MEDS: ASPIRIN 81 MG ECTAB PO SCH (09:14)
[2019-04-12] MEDS: LISINOPRIL 20 MG TAB PO SCH (09:14)
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
[2019-04-12] MEDS: DULOXETINE HCL 30 MG CAP PO SCH (14:20)
[2019-04-12] MEDS: TRAMADOL HCL 50 MG TABLET PO PRN ×2 (14:26→20:26)
[2019-04-12] MEDS: LIDOCAINE 4% CREAM 15 GM TUBE EXT PRN (14:30)
[2019-04-12] MEDS: TRAZODONE HCL 100 MG TAB PO SCH (21:06)
[2019-04-12] MEDS: lamoTRIgine 25 MG TAB PO SCH (21:07)
[2019-04-12] MEDS: FAMOTIDINE 20 MG TAB PO SCH (21:07)
[2019-04-13] MEDS: TRAMADOL HCL 50 MG TABLET PO PRN ×2 (06:38→12:59)
[2019-04-13] MEDS: LIDOCAINE 4% CREAM 15 GM TUBE EXT PRN ×2 (06:39→15:37)
[2019-04-13] MEDS: HydrALAZINE 10 MG TAB PO SCH ×3 (07:31→21:23)
[2019-04-13] MEDS: hydroCHLOROthiazide 25 MG TAB PO SCH (07:32)
[2019-04-13] MEDS: ASPIRIN 81 MG ECTAB PO SCH (07:32)
[2019-04-13] MEDS: DULOXETINE HCL 30 MG CAP PO SCH (07:32)
[2019-04-13] MEDS: clonazePAM 0.5 MG TAB PO SCH ×2 (07:32→21:22)
[2019-04-13] MEDS: AMLODIPINE BESYLATE 5 MG TAB PO SCH (07:32)
[2019-04-13] MEDS: GABAPENTIN 600 MG TAB PO SCH ×3 (07:32→21:22)
[2019-04-13] MEDS: PANTOprazole 40 MG TAB PO SCH (07:33)
[2019-04-13] MEDS: LISINOPRIL 20 MG TAB PO SCH (07:34)
[2019-04-13] MEDS: CARBIDOPA/LEVODOPA 25-250 1 EA TAB PO SCH ×4 (07:34→21:23)
[2019-04-13] MEDS: ACETAMINOPHEN 325 MG TAB PO PRN ×2 (11:58→18:38)
--- NOTE | 2019-04-13 12:07 | Psychiatric Progress Note ---
Date of Service April 13, 2019 Impression / Recommendations Impression 68yo female with known history of depression and anxiety, also with deficits in perception and communication, who is not necessarily a reliable historian. She is reporting improvement in mood, and behavioral control is improving as well. Her clinical case manager is coming to visit today and can provide some background information and an indication of her baseline. Medications have been adjusted to target mood, anxiety, and pain, we will need to coordinate with her outpatient clinicians. Inpatient care is the least restrictive at this time until we can observe that the patient demonstrates adequate judgment to function safely in the community, and assure that she has appropriate outpatient supports for her mental health and medical care. (1) Depression: 04/11/19 - inpatient admission, milieu, group and supportive therapy, engagement of outpt resources for collateral and possible meeting with clinical case manager - continue current trazodone for sleep 200mg/hs - will reduce klonopin from 1.5mg/day to 0.5mg po bid to reduce risk of sedation noted in multiple medical admission and ER notes, and monitor closely - considering cymbalta or pristiq with caution as it may help mood and anxiety and modulate pain but with caution given other 5ht modulating meds, watch for risk of worsening RLS - [facility] unclear reasons, get collateral and reconsider (given titration takes time risk of ongoing use for 2 days is considered minimal at this time) - consider outpatient therapist to support patient through pending possible dx of cancer - per record she declines tx of SONDRA with CPAP but may reconsider appealing to patient regarding this given this could worsen her mood and pain and sleep untreated - levadopa/carbidopa for RLS may be causing augmetnation at 7 times a day, reduce to qid for now and consider slow taper, in favor of low dose klonopin and low dose tramadol for her RLS (again need collateral records) as she is already on klonopin and could use tramadol for pain 04/12/19 - cautious addition of cymbalta 30mg to target mood, anxiety and pain, watching given she is on trazodone 200mg and tramadol q6h for s/sx of 5ht syndrome and risk of seizures (although she is on gabapentin and low dose lamictal as well), watch RLS on cymbalta r/b/se/a discussed with patient and she agrees she is willing to try. 04/13 -continue current medications and plan. -Continue to gather information for the need for ongoing hospitalization/303 involuntary commitment. Her outpatient clinical case manager is visiting today and would be a good source of collateral/information about her baseline. -Family meeting if indicated -patient states she is estranged from her sister, whom she was previously living with, and it is unclear if there are other family members who it would be helpful to involve in her treatment. (2) Chronic pain: 04/11/19 - patient has OA, neuralgia, and now blastic lesion that may or may not be source of occipital pain she is not a good candidate for any obvious opiate med, tramadol may be a harm reduction strategy for now, she may experience some mild withdrawal off oxycodone consistent dosing for a monthw will watch closely, will need to learn if there are any topical pain remedies that can be used on the scalp. Continue neurontin with caution. Trial of tramadol with caution prn pain. 04/12/19 - start cymbalta as above, will provide wtih lidocaine cream topical (discussed with pharmacist options) and ask nursing to guide through lidocain, ice pack prior to tylenol and tramadol. -Presented the double bind patient is putting providers in to ask for treatment of her pain in her head while delaying more definitive care. OUtaptient oncologist has set pursuit of definitive diagnosis as a boundary for further pain management support which is not unreasonable as it is important to know what one is treating not just masking symptoms. Encoruaged patient to consider we may be able to gain partial pain releif and she can manage until May app, OR she can move her appt sooner for definitive dx and further more confident treatment on behalf or her outpatient team. (3) HTN (hypertension): 04/11/19 -continue outpatient meds (of note watch for hypotension and orthostasis given h/o of such) 04/12/19 - elevated BP and pulse today, need to monitor, cannot rule out pain as contributing if remains elevated may need to consult internal medicine for guidance on treatment (4) GERD (gastroesophageal reflux disease): it is unclear whey she is on PPI and famotadine, will continue and clarify with PCM (5) COPD (chronic obstructive pulmonary disease): continue outpatient regimen Inventory Assets Strengths: recognizes she is depressed brought names of her legal and clinical supports with her Needs: safety medication evaluation and adjustment assurance of inpatient and outpatient support Risk Factors Assessment Male: No : Yes Do You Have Access To A Gun?: No Health Problems: Yes Mental Health Diagnoses: Yes Substance Use Disorders: No Previous Attempt: Yes Family History of Suicide: No Previous Psychiatric Hospitalization: Yes Hopelessness: Yes Smoker: Yes Protective Factors Assessment Moravian Beliefs: No : No Responsible for Young Children: No Employed: No (Disability) Stable Relationships: No Supportive Family: No Good Rapport with Provider: No Interval History Chief Complaint "Today I feel fantastic". Review of Systems Sleep Information Total Hours of Sleep: 7.25 Sleep Comments: pt appeared to sleep 1.75 hrs during evening shift. pt on q-15 minute checks Meal Information Percent Meal Consumed - Breakfast: 100 Percent Meal Consumed - Lunch: 25 Percent Meal Consumed - Dinner: 100 Subjective Subjective Patient was seen & assessed and interval progress reviewed with Treatment Team. Staff report the patient has been disruptive in groups, with irritability and paranoia. On my assessment, she states her mood is much improved today, and she is happy to be here. She states that she came to the hospital "because of pain, and the doctor said you've been here so many times, we'll do a head scan I just thought I'd walk home, like I did in the 60s No one picks you up nowadays So sat down in the road, that's how I ended up here." She denies thoughts of harming herself or anyone else, and states that treatment is helping her to feel more stable. She states she was very angry when she first got to the hospital, because she had called her "truck driver instructor," a man whom she hired to drive her to appointments, and he "told me it was a holiday weekend, he was drunk, and to fuck off." She states it was "stupid" to try to walk home, and also "stupid" to lie down in the road. Physical Exam Mental Examination White female appearing older than her stated age. Casually dressed, limited hygiene and grooming. Seated in no acute distress, no abnormal movements. Mood is "fantastic," affect is slightly expansive, and congruent. Speech is excessive, slightly pressured. Thoughts are tangential; often responds to questions with information about other, unknown people. Denies SI, HI, hallucinations. No paranoia or delusions evident. Attention is impaired. Insight and judgment are impaired. Vital Signs (Past 24 Hours) Last Vital Signs Temp 36.9 C 04/13/19 06:46 Pulse 79 04/13/19 07:25 Resp 18 04/13/19 06:46 BP 106/72 04/13/19 07:25 Pulse Ox 96 04/11/19 14:19 Results & Data Current Inpatient Medications Current Inpatient Medications: Current Inpatient Medications Acetaminophen (Tylenol) 650 mg PO Q4H PRN PRN Reason: Headache or Minor Fever Stop: 05/11/19 14:51 Last Admin: 04/12/19 06:51 Dose: 650 mg Documented by: Al Hydrox/Mg Hydrox/Simethicone (Maalox) 30 ml PO Q4H PRN PRN Reason: GI Upset Stop: 05/11/19 14:51 Albuterol (Combivent Respimat) 2 puffs INH QAM PRN PRN Reason: Shortness Of Breath Or Wheezin Stop: 05/11/19 14:53 Amlodipine Besylate (Norvasc) 5 mg PO QAM [facility] Stop: 05/12/19 08:59 Last Admin: 04/13/19 07:32 Dose: 5 mg Documented by: Aspirin (Ecotrin Ectab) 81 mg PO DAILY [facility] Stop: 05/12/19 08:59 Last Admin: 04/13/19 07:32 Dose: 81 mg Documented by: Bismuth Subsalicylate (Kaopectate) 15 ml PO PRN PRN PRN Reason: Loose Stool Stop: 05/11/19 14:51 Carbidopa/Levodopa (Sinemet 25/250mg) 1 tab PO QID [facility] Stop: 05/11/19 16:59 Last Admin: 04/13/19 07:34 Dose: 1 tab Documented by: Clonazepam (Klonopin) 0.5 mg PO BID [facility] Stop: 05/11/19 20:59 Last Admin: 04/13/19 07:32 Dose: 0.5 mg Documented by: Duloxetine HCl (Cymbalta) 30 mg PO QAM [facility] Stop: 05/12/19 12:44 Last Admin: 04/13/19 07:32 Dose: 30 mg Documented by: Famotidine (Pepcid) 40 mg PO HS [facility] Stop: 05/11/19 21:59 Last Admin: 04/12/19 21:07 Dose: 40 mg Documented by: Fluticasone Propionate (Flonase) 2 sprays NA DAILY PRN PRN Reason: Congestion Stop: 05/11/19 14:53 Gabapentin (Neurontin) 600 mg PO TID [facility] Stop: 05/11/19 20:59 Last Admin: 04/13/19 07:32 Dose: 600 mg Documented by: Hydralazine HCl (Apresoline) 10 mg PO TID [facility] Stop: 05/11/19 20:59 Last Admin: 04/13/19 07:31 Dose: 10 mg Documented by: Hydrochlorothiazide (Hctz) 25 mg PO [facility] Stop: 05/12/19 08:59 Last Admin: 04/13/19 07:32 Dose: 25 mg Documented by: Hydroxyzine HCl (Vistaril) 25 mg PO Q4H PRN PRN Reason: Anxiety Stop: 05/11/19 14:51 Hydroxyzine HCl (Vistaril) 50 mg PO HSZ PRN PRN Reason: Insomnia Stop: 05/11/19 14:51 Ioversol (Optiray 320 125ml) 119 ml IV ONCE PRN PRN Reason: Interaction Checking Stop: 04/15/19 06:05 Last Admin: 04/11/19 06:07 Dose: 119 ml Documented by: Lamotrigine (Lamictal) [address] [facility] Stop: 05/11/19 21:59 Last Admin: 04/12/19 21:07 Dose: 50 mg Documented by: Lidocaine (Anecream 4%) 1 appln EXT Q8H PRN PRN Reason: occipital pain Stop: 05/12/19 12:45 Last Admin: 04/13/19 06:39 Dose: 1 appln Documented by: Lisinopril (Zestril) 20 mg PO [facility] Stop: 05/12/19 08:59 Last Admin: 04/13/19 07:34 Dose: 20 mg Documented by: Magnesium Hydroxide (Milk Of Magnesia) 30 ml PO DAILY PRN PRN Reason: Heartburn Stop: 05/11/19 14:51 Pantoprazole Sodium (Protonix) 40 mg PO [facility] Stop: 05/12/19 08:59 Last Admin: 04/13/19 07:33 Dose: 40 mg Documented by: Sodium Chloride ([place] Nasal) 1 - 2 sprays NA PRN PRN PRN Reason: Nasal Dryness/Congestion Stop: 05/11/19 14:51 Tramadol HCl (Ultram) 50 mg PO Q6 PRN PRN Reason: Pain Stop: 05/11/19 16:40 Last Admin: 04/13/19 06:38 Dose: 50 mg Documented by: Trazodone HCl (Desyrel) 200 mg PO HS [facility] Stop: 05/11/19 21:59 Last Admin: 04/12/19 21:06 Dose: 200 mg Documented by: Post Discharge Appointments Primary Care Physician Name Of Family Doctor: Adamaris Keita Therapist Name of Therapist: vahe Manufacturing Leader Name of Manufacturing Leader: NARCISA Noyola CPT Code CPT Code 70291 (1) Chronic pain Chronic pain type: other chronic pain Qualified Code(s): G89.29 - Other chronic pain
[2019-04-13] MEDS: FAMOTIDINE 20 MG TAB PO SCH (21:22)
[2019-04-13] MEDS: TRAZODONE HCL 100 MG TAB PO SCH (21:24)
[2019-04-13] MEDS: lamoTRIgine 25 MG TAB PO SCH (21:24)
[2019-04-14] MEDS: TRAMADOL HCL 50 MG TABLET PO PRN ×2 (07:04→16:54)
[2019-04-14] MEDS: AMLODIPINE BESYLATE 5 MG TAB PO SCH (08:37)
[2019-04-14] MEDS: PANTOprazole 40 MG TAB PO SCH (08:37)
[2019-04-14] MEDS: DULOXETINE HCL 30 MG CAP PO SCH (08:37)
[2019-04-14] MEDS: LISINOPRIL 20 MG TAB PO SCH (08:37)
[2019-04-14] MEDS: clonazePAM 0.5 MG TAB PO SCH ×2 (08:37→21:29)
[2019-04-14] MEDS: HydrALAZINE 10 MG TAB PO SCH ×3 (08:37→21:40)
[2019-04-14] MEDS: hydroCHLOROthiazide 25 MG TAB PO SCH (08:37)
[2019-04-14] MEDS: GABAPENTIN 600 MG TAB PO SCH ×3 (08:37→21:30)
[2019-04-14] MEDS: CARBIDOPA/LEVODOPA 25-250 1 EA TAB PO SCH ×4 (08:38→21:30)
[2019-04-14] MEDS: ASPIRIN 81 MG ECTAB PO SCH (08:38)
[2019-04-14] MEDS: ACETAMINOPHEN 325 MG TAB PO PRN (12:05)
[2019-04-14] MEDS: LIDOCAINE 4% CREAM 15 GM TUBE EXT PRN ×2 (12:07→16:57)
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
[2019-04-14] MEDS: TRAZODONE HCL 100 MG TAB PO SCH (21:30)
[2019-04-14] MEDS: lamoTRIgine 25 MG TAB PO SCH (21:31)
[2019-04-14] MEDS: FAMOTIDINE 20 MG TAB PO SCH (21:31)
[2019-04-15] MEDS: LIDOCAINE 4% CREAM 15 GM TUBE EXT PRN (06:28)
[2019-04-15] MEDS: TRAMADOL HCL 50 MG TABLET PO PRN (06:36)
[2019-04-15] MEDS: HydrALAZINE 10 MG TAB PO SCH (07:30)
[2019-04-15] MEDS: DULOXETINE HCL 30 MG CAP PO SCH (07:31)
[2019-04-15] MEDS: hydroCHLOROthiazide 25 MG TAB PO SCH (07:31)
[2019-04-15] MEDS: GABAPENTIN 600 MG TAB PO SCH (07:31)
[2019-04-15] MEDS: ASPIRIN 81 MG ECTAB PO SCH (07:31)
[2019-04-15] MEDS: LISINOPRIL 20 MG TAB PO SCH (07:32)
[2019-04-15] MEDS: CARBIDOPA/LEVODOPA 25-250 1 EA TAB PO SCH (07:32)
[2019-04-15] MEDS: PANTOprazole 40 MG TAB PO SCH (07:32)
[2019-04-15] MEDS: AMLODIPINE BESYLATE 5 MG TAB PO SCH (07:32)
[2019-04-15] MEDS: clonazePAM 0.5 MG TAB PO SCH (07:37)
[2019-04-15] MEDS: ACETAMINOPHEN 325 MG TAB PO PRN (08:25)
--- NOTE | 2019-04-15 09:38 | Discharge Summary ---
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 % Cream 1 applic EXT Q8H PRN (Reason: pain) Qty: 1 RF: 0 duloxetine 30 mg Capsule,Delayed Release(Dr/Ec) 30 mg PO QAM Qty: 30 RF: 0 Continued hydralazine 10 mg tablet 10 mg PO .TAKE 1 TABLET 3 TIME Qty: 90 RF: 0 trazodone 100 mg tablet 200 mg PO HS RF: 0 famotidine [Pepcid] 40 mg tablet 40 mg PO HS Qty: 30 RF: 0 aspirin 81 mg Tablet,Delayed Release (Dr/Ec) 81 mg PO DAILY RF: 0 potassium chloride 20 mEq Tablet Extended Release 20 meq PO DAILY PRN (Reason: Unknown) RF: 0 lisinopril 20 mg Tablet 20 mg PO QAM RF: 0 amlodipine 5 mg Tablet 5 mg PO QAM RF: 0 lamotrigine [Lamictal] 25 mg Tablet 50 mg PO HS RF: 0 omeprazole 20 mg Capsule,Delayed Release(Dr/Ec) 20 mg PO QAM RF: 0 hydrochlorothiazide 25 mg Tablet 25 mg PO QAM RF: 0 fluticasone propionate [Flonase Allergy Relief] 50 mcg/actuation Sunray,Suspension 2 spray INTRANASAL DAILY PRN (Reason: Congestion) RF: 0 gabapentin 600 mg tablet 600 mg PO TID RF: 0 Combivent Respimat 20-100 mcg/actuation Mist 2 puff INHALATION QAM PRN (Reason: Shortness Of Breath Or Wheezing) RF: 0 Changed carbidopa-levodopa [Sinemet] 25-250 mg Tablet 1 tab PO QID Qty: 0 RF: 0 clonazepam [Klonopin] 0.5 mg Tablet 0.25 mg PO HS Qty: 0 RF: 0 Discontinued clonazepam 1 mg tablet 1 mg PO QAM RF: 0 No Action oxycodone 5 mg tablet RF: 0 Stand-Alone Forms: [facility] Discharge Orders: Discharge Order (Routine); Ordered 04/15/19 Ordered By: Abby Gore Admission Data Admit Date/Time: 04/11/19 13:56 Attending Provider: Yuni Anderson Admit Provider: Yuni Anderson Primary Care Provider: Yelena Keita Other Providers: Yuni Anderson Service: Psychiatry Other Interventions: Discharge Summary Assessment (RN) Last Done: 04/15/19 10:28 PSY Interdisciplinary Discharge Planning Last Done: 04/15/19 10:28 Pending Studies at Discharge: No DC Date/Time DO NOT enter until pt leaves facility: 04/15/19 10:50
[2019-04-15 12:03] LABS: Hydrocodone Urine NEGATIVE NG/ML (CUTOFF=50); Hydromor Urine NEGATIVE NG/ML (CUTOFF=50); Morphine Urine NEGATIVE NG/ML (CUTOFF=50); Norhydrocodone Conf Ur NEGATIVE NG/ML (CUTOFF=50); Noroxycodone Urine 2890 NG/ML (CUTOFF=50); Oxycodone Urine 1410 NG/ML (CUTOFF=50)
== END 2019-04-15 10:50 | disposition home or self-care (01) | DRG 881 ==
LOC: ED 05:18 → 3S 13:56

== ENCOUNTER 2019-06-02 17:09 | Inpatient (IN) ==
[2019-06-02] MEDS ORDERED: SODIUM CHLORIDE 0.9% 1000ML 2,000 ML IV ONE (17:31)
[2019-06-02] MEDS ORDERED: OPTIRAY 320 125ml IV PRN (17:46)
--- NOTE | 2019-06-02 17:51 | Emergency Department Note ---
Entered by Joaquina Lima acting as a scribe for Eulalio Anne DO History of Present Illness General Chief complaint: Unresponsive Stated complaint: SYNCOPE Time Seen by Provider: 06/02/19 17:20 Source: patient and family History of Present Illness Onset (ago): minute(s) (prior to arrival) Location: head Pain Consistency: + other (episode) Quality: + other (syncope) Associated symptoms: + diaphoresis and + shortness of breath; no loss of appetite and no nausea/vomiting The patient is a 68 year old female who reports to the ED with complaints of an episode of syncope prior to arrival by EMS. The patients twin sister reports that the patient was sitting down when she verbalized that she did not feel well and passed out. She also reports that the patient had diaphoresis before she passed out. The patients sister reported that she had no nausea or vomiting before the episode. The patients sister reported that she was hypoxic for the EMS. She states that the patient has Parkinsons disease. The patients sister claims that she has been eating and drinking normally in the past few weeks. She denies that the patient has a history of heart problems and harming herself. Home Medications Home Medications Medication Instructions Recorded Confirmed Type amlodipine 5 mg PO QAM 08/07/18 06/02/19 History fluticasone propionate [Flonase 2 spray INTRANASAL DAILY PRN 08/07/18 06/02/19 History Allergy Relief] hydrochlorothiazide 25 mg PO QAM 08/07/18 06/02/19 History lamotrigine [Lamictal] 50 mg PO HS 08/07/18 06/02/19 History lisinopril 20 mg PO QAM 08/07/18 06/02/19 History omeprazole 20 mg PO QAM 08/07/18 06/02/19 History gabapentin 600 mg PO TID 01/31/19 06/02/19 History famotidine [Pepcid] 40 mg PO HS #30 tab 03/08/19 06/02/19 Rx aspirin 81 mg PO DAILY 03/19/19 06/02/19 History clonidine HCl 0.3 mg tablet 0.3 mg PO BID #60 tab 04/27/19 06/02/19 Rx cyanocobalamin (vit B-12) 1,000 1,000 mcg PO DAILY #1 tab 04/27/19 06/02/19 History mcg tablet carbidopa 25 mg-levodopa 250 mg 1 tab PO .COMPLEX #210 tab 05/17/19 06/02/19 Rx tablet hydralazine 10 mg tablet 10 mg PO TID #90 tab 06/01/19 06/02/19 Rx acetaminophen [Tylenol Extra 1,000 mg PO QID PRN 06/02/19 06/02/19 History Strength] baclofen 10 - 20 mg PO Q8H PRN 06/02/19 06/02/19 History clonazepam 0.5 mg PO HS 06/02/19 06/02/19 History clonazepam 1 mg PO QAM 06/02/19 06/02/19 History duloxetine 30 mg PO DAILY 06/02/19 06/02/19 History oxycodone 5 mg PO BID PRN 06/02/19 06/02/19 History tramadol 50 mg PO Q6H PRN 06/02/19 06/02/19 History trazodone 200 mg PO HS 06/02/19 06/02/19 History Allergies Allergy/AdvReac Type Severity Reaction Status Date / Time nicotine Allergy Intermediate skin Verified 04/27/19 14:49 irritation bee venom protein (honey bee) Allergy Unknown "I PASS Verified 04/27/19 14:49 OUT." bupropion Allergy Unknown unknown Verified 04/27/19 14:49 codeine Allergy Unknown unknown - Verified 04/27/19 14:49 TOLERATES PERCOCET Sulfa (Sulfonamide Allergy Unknown . Verified 04/27/19 14:49 Antibiotics) hydromorphone [From Dilaudid] AdvReac Unresponsiv Verified 04/27/19 14:49 e morphine AdvReac Unresponsiv Verified 04/27/19 14:49 e Past Med/Surg History Medical History Stroke (Acute) Stomach ulcer (Acute) Occipital neuralgia (Acute) Metastatic cancer (Acute) Hyperlipidemia (Acute) Generalized osteoarthritis of multiple sites (Acute) Benign lipomatous tumor (Acute) Arthritis (Acute) Aneurysm of basilar artery (Acute) Allergic rhinitis (Acute) COPD (chronic obstructive pulmonary disease) (Chronic) Spinal stenosis (Chronic) GERD (gastroesophageal reflux disease) (Chronic) HTN (hypertension) (Chronic 01/06/15) Mixed anxiety and depressive disorder (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 Lumbago (Chronic) Parkinsons Self-harm History of anesthesia reaction PT STATES THAT SHE WOKE UP TWICE DURING PREVIOUS COLONOSCOPY AND WAS ADVISED TO ALERT STAFF OF THIS FOR FUTURE PROCEDURES. Surgical History History of spinal surgery (Chronic) LUMBAR FUSION S/P excision of lipoma (Chronic) Status post right knee replacement (Chronic) History of surgery REMOVAL OF RIGHT LABIA FOLLOWING DX OF VULVA CANCER Family History Other Family history non-contributory Social History Preferred Language: Japanese Communication Ability: Effective Visual Impairment: Limited Hearing Ability: Normal Beliefs That Will Affect Care: None marital status: / Current Living Situation: Family Current Living Situation Comment: lives w/ sister current occupational status: disabled Feels Safe at Home: Yes Smoking Status: Current every day smoker Tobacco Type: cigarettes Cigarettes Per Day: 4 Second Hand Exposure: No Hx Alcohol Use: No Hx Substance Use: No Review of Systems See HPI for pertinent positives & negatives. and A total of 10 systems reviewed and were otherwise negative Physical Exam Vital Signs Vital Signs - 24 hr 06/02/19 17:17 06/02/19 17:26 06/02/19 17:27 Temperature 36.3 C L Temperature Source Oral Sepsis Recent Fever Within 48 Hours No Sepsis New/Unexplained Change in Mental Status Yes Sepsis Action Taken by Nursing No Action Required Pulse Rate 66 63 64 Pulse Rate [Apical] Pulse Rate from SpO2 Sensor 63 63 Pulse Rhythm [Apical] Pulse Strength [Apical] Respiratory Rate 18 15 14 Respiratory Effort / Characteristics Respiratory Depth Blood Pressure 74/41 L 74/41 L Blood Pressure [Left Arm] Blood Pressure Mean 52 52 Blood Pressure Mean [Left Arm] Blood Pressure Position [Left Arm] Pulse Oximetry 95 96 88 L Oxygen Delivery Method Room Air Oxygen Flow Rate 3 06/02/19 17:30 06/02/19 17:31 06/02/19 17:40 Temperature Temperature Source Sepsis Recent Fever Within 48 Hours Sepsis New/Unexplained Change in Mental Status Sepsis Action Taken by Nursing Pulse Rate 64 64 59 L Pulse Rate [Apical] Pulse Rate from SpO2 Sensor 65 65 Pulse Rhythm [Apical] Pulse Strength [Apical] Respiratory Rate 14 13 13 Respiratory Effort / Characteristics Respiratory Depth Blood Pressure 81/39 L Blood Pressure [Left Arm] Blood Pressure Mean 53 Blood Pressure Mean [Left Arm] Blood Pressure Position [Left Arm] Pulse Oximetry 96 98 Oxygen Delivery Method Nasal Cannula Oxygen Flow Rate 3 06/02/19 18:01 06/02/19 18:03 06/02/19 18:10 Temperature Temperature Source Sepsis Recent Fever Within 48 Hours Sepsis New/Unexplained Change in Mental Status Sepsis Action Taken by Nursing Pulse Rate 71 68 Pulse Rate [Apical] 71 Pulse Rate from SpO2 Sensor Pulse Rhythm [Apical] Regular Pulse Strength [Apical] Normal Respiratory Rate 15 Respiratory Effort / Characteristics Non-Labored Respiratory Depth Normal Blood Pressure 116/67 Blood Pressure [Left Arm] 116/67 Blood Pressure Mean 83 Blood Pressure Mean [Left Arm] 83 Blood Pressure Position [Left Arm] Lying Pulse Oximetry 99 Oxygen Delivery Method Room Air Oxygen Flow Rate 06/02/19 18:15 06/02/19 19:26 Temperature Temperature Source Sepsis Recent Fever Within 48 Hours Sepsis New/Unexplained Change in Mental Status Sepsis Action Taken by Nursing Pulse Rate Pulse Rate [Apical] 75 70 Pulse Rate from SpO2 Sensor Pulse Rhythm [Apical] Regular Pulse Strength [Apical] Normal Respiratory Rate 19 14 Respiratory Effort / Characteristics Non-Labored Spontaneous Respiratory Depth Normal Blood Pressure Blood Pressure [Left Arm] 116/67 115/66 Blood Pressure Mean Blood Pressure Mean [Left Arm] 83 82 Blood Pressure Position [Left Arm] Pulse Oximetry 99 98 Oxygen Delivery Method Room Air Nasal Cannula Oxygen Flow Rate 2 GENERAL: The patient is listless and does not respond to verbal commands. She does not respond to painful commands. EYES: Eyes are closed. Eyes were open to forcibly and evaluated. The conjunctivae are clear. The pupils are constricted and minimally reactive bilaterally. EARS, NOSE, MOUTH AND THROAT: The nose is without any evidence of any deformity. Mucous membranes are moist tongue is midline NECK: The neck is nontender and supple. RESPIRATORY: Normal respiratory effort is noted there is no evidence of wheezing rhonchi or rales CARDIOVASCULAR: Regular rate and rhythm noted there no murmurs rubs or gallops normal S1 normal S2 GASTROINTESTINAL: The abdomen is soft. Bowel sounds are present in all quadrants. Abdomen is nontender MUSCULOSKELETAL/EXTREMITIES: There is no evidence of gross deformity full range of motion is noted in the hips and shoulders SKIN: There is no obvious evidence of any rash. Pedal edema was noted bilaterally. NEUROLOGIC: Patient does not follow commands. Unable to assess orientation at this time. Course 1726: Past medical records reviewed. The patient was evaluated in room C5. A complete history and physical exam was performed. 1832: I reevaluated the patient and updated her on her test results. I discussed the treatment plan with her. She verbally agrees and understands. 1840: I discussed the patient's case with Dr. Manuel BENAVIDES Hospitalist. She will evaluate the patient for further management. Consultations Consultation #1: I discussed the patient's case with Dr. Manuel BENAVIDES Hospitalist. She will evaluate the patient for further management. Time: 18:40 Administered Medications Sodium Chloride (Nss 1000ml) 1,000 mls @ 100 mls/hr IV .Q10H DENISA Stop: 06/03/19 07:15 Last Admin: 06/02/19 21:33 Dose: 100 mls/hr Documented by: [id number] Discontinued Medications Sodium Chloride (Nss 1000ml) 2,000 mls @ 999 mls/hr IV .Q2H1M ONE Stop: 06/02/19 19:31 Last Infusion: 06/02/19 19:45 Dose: 0 mls/hr Documented by: [id number] Admin: 06/02/19 17:44 Dose: 999 mls/hr Documented by: [id number] Piperacillin Sod/Tazobactam Sod (Zosyn) 4.5 gm in 120 mls @ 240 mls/hr IV NOW ONE Stop: 06/02/19 18:45 Last Infusion: 06/02/19 19:51 Dose: 0 mls/hr Documented by: [id number] Admin: 06/02/19 19:21 Dose: 240 mls/hr Documented by: [id number] Ioversol (Optiray 320 125ml) 120 ml IV ONCE PRN PRN Reason: Interaction Checking Stop: 06/06/19 17:45 Last Admin: 06/02/19 17:46 Dose: 120 ml Documented by: [id number] Naloxone HCl (Narcan) 0.2 mg IV NOW STA Stop: 06/02/19 18:02 Last Admin: 06/02/19 18:08 Dose: 0.2 mg Documented by: [id number] Naloxone HCl (Narcan) 0.4 mg IV NOW STA Stop: 06/02/19 20:03 Last Admin: 06/02/19 20:03 Dose: 0.4 mg Documented by: [id number] Medical Decision Making Differential Diagnosis Differential: Vaso-vagal, Intracerebral Event, Neurologic, Infectious, Volume Deficiency, Hypoglycemia, Electrolyte Abnormality, Cardiac Source, Toxicologic, amongst other pathologies entertained. Medical Records Attestation: I reviewed the patient's medical records. Home Medications Current Medication List: was personally reviewed by me Laboratory Data Attestation: I reviewed the patient's lab results. Result diagrams: 06/02/19 17:20 06/02/19 17:20 Lab Results 06/02/19 06/02/19 06/02/19 Range/Units 17:20 17:20 17:20 WBC 6.97 (4.8-10.8) K/uL RBC 3.71 L (4.2-5.4) M/uL Hgb 11.9 L (12.0-16.0) g/dL POC Hgb (12.0-16.0) g/dl Hct 37.5 (37-47) % POC Hct (37-47) % MCV 101.1 H (80-100) fL MCH 32.1 (25-34) pg MCHC 31.7 L (32-36) g/dL RDW Std Deviation 59.1 H (36.4-46.3) fL RDW Coeff of Ginger 15.8 H (11.5-14.5) % Plt Count 262 (130-400) K/uL MPV 10.1 (7.4-10.4) fL Immature Gran % (Auto) 0.1 % Neut % (Auto) 68.2 % Lymph % (Auto) 23.7 % [place] % (Auto) 7.2 % Eos % (Auto) 0.7 % Baso % (Auto) 0.1 % Immature Gran # (Auto) 0.01 (0.00-0.02) K/uL Neut # (Auto) 4.75 (1.4-6.5) K/uL Lymph # (Auto) 1.65 (1.2-3.4) K/uL [place] # (Auto) 0.50 (0.11-0.59) K/uL Eos # (Auto) 0.05 (0-0.5) K/uL Baso # (Auto) 0.01 (0-0.2) K/uL ESR (0-21) mm/hr PT 10.3 (9.0-12.0) Seconds INR 1.0 (0.9-1.1) APTT 26.5 (21.0-31.0) Seconds PTT Ratio 1.0 VBG pH (7.36-7.41) VBG pCO2 (38-50) mmHg VBG pO2 mmHg VBG HCO3 mmol/L VBG O2 Saturation % VBG Base Excess mEq/L Barometric Pressure mm/Hg POC Sodium (135-144) mEq/L Sodium 143 (136-145) mmol/L POC Potassium (3.3-5.0) mEq/L Potassium 3.5 (3.5-5.1) mmol/L POC Chloride (101-112) mEq/L Chloride 109 H (98-107) mmol/L Carbon Dioxide 29 (21-32) mmol/L POC Total CO2 (24-31) mEq/l Anion Gap 5.0 (3-11) POC Anion Gap (16-25) mmol/L POC BUN (7-18) mg/dl BUN 12 (7-18) mg/dl Creatinine 1.28 H (0.6-1.2) mg/dl POC Creatinine (0.6-1.3) mg/dl Est Cr Clr Drug Dosing Not Reportable Est GFR ( Amer) 50.4 Est GFR (Non-Af Amer) 43.5 BUN/Creatinine Ratio 9.5 L (10-20) Glucose 110 H (70-99) mg/dl POC Glucose (other) (70-99) mg/dl Osmolality (280-300) mOsm/kg Lactate (0.4-2.0) mmol/L Calcium 8.4 L (8.5-10.1) mg/dl POC Ioniz Calcium Ad (1.12-1.32) mmol/l Magnesium 2.1 (1.8-2.4) mg/dl Total Bilirubin 0.4 (0.2-1) mg/dl AST 6 L (15-37) U/L ALT 6 L (12-78) U/L Alkaline Phosphatase 57 (45-117) U/L Troponin I < 0.015 (0-0.045) ng/ml C-Reactive Protein 0.36 H (0-0.29) mg/dl Total Protein 6.1 L (6.4-8.2) gm/dl Albumin 3.5 (3.4-5.0) gm/dl Globulin 2.6 (2.5-4.0) gm/dl Albumin/Globulin Ratio 1.3 (0.9-2) Procalcitonin (0-0.5) ng/ml Urine Color Urine Appearance (Clear) Urine pH (4.5-7.5) Ur Specific [place] (1.000-1.030) Urine Protein (Negative) Urine Glucose (UA) (Negative) Urine Ketones (Negative) Urine Blood (Negative) Urine Nitrite (Negative) Urine Bilirubin (Negative) Urine Urobilinogen (Negative) Ur Leukocyte Esterase (Negative) Salicylates (2.8-20) mg/dl Urine Opiates Screen (Neg) Ur Methadone, Qual (Neg) Acetaminophen (10-30) ug/ml Urine Barbiturates (Neg) Ur Phencyclidine (PCP) (Neg) U Amphetamin/Meth Scrn (Neg) MDMA (Ecstasy) Screen (Neg) U Benzodiazepines Scrn (Neg) Ur Cocaine Metabolite (Neg) U Marijuana (THC) Screen (Neg) Ethyl Alcohol mg/dL (0-3) mg/dl 06/02/19 06/02/19 06/02/19 Range/Units 17:20 17:20 17:20 WBC (4.8-10.8) K/uL RBC (4.2-5.4) M/uL Hgb (12.0-16.0) g/dL POC Hgb (12.0-16.0) g/dl Hct (37-47) % POC Hct (37-47) % MCV (80-100) fL MCH (25-34) pg MCHC (32-36) g/dL RDW Std Deviation (36.4-46.3) fL RDW Coeff of Ginger (11.5-14.5) % Plt Count (130-400) K/uL MPV (7.4-10.4) fL Immature Gran % (Auto) % Neut % (Auto) % Lymph % (Auto) % [place] % (Auto) % Eos % (Auto) % Baso % (Auto) % Immature Gran # (Auto) (0.00-0.02) K/uL Neut # (Auto) (1.4-6.5) K/uL Lymph # (Auto) (1.2-3.4) K/uL [place] # (Auto) (0.11-0.59) K/uL Eos # (Auto) (0-0.5) K/uL Baso # (Auto) (0-0.2) K/uL ESR 8 (0-21) mm/hr PT (9.0-12.0) Seconds INR (0.9-1.1) APTT (21.0-31.0) Seconds PTT Ratio VBG pH (7.36-7.41) VBG pCO2 (38-50) mmHg VBG pO2 mmHg VBG HCO3 mmol/L VBG O2 Saturation % VBG Base Excess mEq/L Barometric Pressure mm/Hg POC Sodium (135-144) mEq/L Sodium (136-145) mmol/L POC Potassium (3.3-5.0) mEq/L Potassium (3.5-5.1) mmol/L POC Chloride (101-112) mEq/L Chloride (98-107) mmol/L Carbon Dioxide (21-32) mmol/L POC Total CO2 (24-31) mEq/l Anion Gap (3-11) POC Anion Gap (16-25) mmol/L POC BUN (7-18) mg/dl BUN (7-18) mg/dl Creatinine (0.6-1.2) mg/dl POC Creatinine (0.6-1.3) mg/dl Est Cr Clr Drug Dosing Est GFR ( Amer) Est GFR (Non-Af Amer) BUN/Creatinine Ratio (10-20) Glucose (70-99) mg/dl POC Glucose (other) (70-99) mg/dl Osmolality 297 (280-300) mOsm/kg Lactate (0.4-2.0) mmol/L Calcium (8.5-10.1) mg/dl POC Ioniz Calcium Ad (1.12-1.32) mmol/l Magnesium (1.8-2.4) mg/dl Total Bilirubin (0.2-1) mg/dl AST (15-37) U/L ALT (12-78) U/L Alkaline Phosphatase (45-117) U/L Troponin I (0-0.045) ng/ml C-Reactive Protein (0-0.29) mg/dl Total Protein (6.4-8.2) gm/dl Albumin (3.4-5.0) gm/dl Globulin (2.5-4.0) gm/dl Albumin/Globulin Ratio (0.9-2) Procalcitonin (0-0.5) ng/ml Urine Color Urine Appearance (Clear) Urine pH (4.5-7.5) Ur Specific [place] (1.000-1.030) Urine Protein (Negative) Urine Glucose (UA) (Negative) Urine Ketones (Negative) Urine Blood (Negative) Urine Nitrite (Negative) Urine Bilirubin (Negative) Urine Urobilinogen (Negative) Ur Leukocyte Esterase (Negative) Salicylates < 1.7 L (2.8-20) mg/dl Urine Opiates Screen (Neg) Ur Methadone, Qual (Neg) Acetaminophen < 2 L (10-30) ug/ml Urine Barbiturates (Neg) Ur Phencyclidine (PCP) (Neg) U Amphetamin/Meth Scrn (Neg) MDMA (Ecstasy) Screen (Neg) U Benzodiazepines Scrn (Neg) Ur Cocaine Metabolite (Neg) U Marijuana (THC) Screen (Neg) Ethyl Alcohol mg/dL (0-3) mg/dl 06/02/19 06/02/19 06/02/19 Range/Units 17:30 17:41 18:30 WBC (4.8-10.8) K/uL RBC (4.2-5.4) M/uL Hgb (12.0-16.0) g/dL POC Hgb 11.6 L (12.0-16.0) g/dl Hct (37-47) % POC Hct 34 L (37-47) % MCV (80-100) fL MCH (25-34) pg MCHC (32-36) g/dL RDW Std Deviation (36.4-46.3) fL RDW Coeff of Ginger (11.5-14.5) % Plt Count (130-400) K/uL MPV (7.4-10.4) fL Immature Gran % (Auto) % Neut % (Auto) % Lymph % (Auto) % [place] % (Auto) % Eos % (Auto) % Baso % (Auto) % Immature Gran # (Auto) (0.00-0.02) K/uL Neut # (Auto) (1.4-6.5) K/uL Lymph # (Auto) (1.2-3.4) K/uL [place] # (Auto) (0.11-0.59) K/uL Eos # (Auto) (0-0.5) K/uL Baso # (Auto) (0-0.2) K/uL ESR (0-21) mm/hr PT (9.0-12.0) Seconds INR (0.9-1.1) APTT (21.0-31.0) Seconds PTT Ratio VBG pH (7.36-7.41) VBG pCO2 (38-50) mmHg VBG pO2 mmHg VBG HCO3 mmol/L VBG O2 Saturation % VBG Base Excess mEq/L Barometric Pressure mm/Hg POC Sodium 143 (135-144) mEq/L Sodium (136-145) mmol/L POC Potassium 3.4 (3.3-5.0) mEq/L Potassium (3.5-5.1) mmol/L POC Chloride 103 (101-112) mEq/L Chloride (98-107) mmol/L Carbon Dioxide (21-32) mmol/L POC Total CO2 27 (24-31) mEq/l Anion Gap (3-11) POC Anion Gap 17.0 (16-25) mmol/L POC BUN 11 (7-18) mg/dl BUN (7-18) mg/dl Creatinine (0.6-1.2) mg/dl POC Creatinine 1.3 (0.6-1.3) mg/dl Est Cr Clr Drug Dosing Est GFR ( Amer) Est GFR (Non-Af Amer) BUN/Creatinine Ratio (10-20) Glucose (70-99) mg/dl POC Glucose (other) 112 H (70-99) mg/dl Osmolality (280-300) mOsm/kg Lactate (0.4-2.0) mmol/L Calcium (8.5-10.1) mg/dl POC Ioniz Calcium Ad 1.21 (1.12-1.32) mmol/l Magnesium (1.8-2.4) mg/dl Total Bilirubin (0.2-1) mg/dl AST (15-37) U/L ALT (12-78) U/L Alkaline Phosphatase (45-117) U/L Troponin I (0-0.045) ng/ml C-Reactive Protein (0-0.29) mg/dl Total Protein (6.4-8.2) gm/dl Albumin (3.4-5.0) gm/dl Globulin (2.5-4.0) gm/dl Albumin/Globulin Ratio (0.9-2) Procalcitonin < 0.05 (0-0.5) ng/ml Urine Color Urine Appearance (Clear) Urine pH (4.5-7.5) Ur Specific [place] (1.000-1.030) Urine Protein (Negative) Urine Glucose (UA) (Negative) Urine Ketones (Negative) Urine Blood (Negative) Urine Nitrite (Negative) Urine Bilirubin (Negative) Urine Urobilinogen (Negative) Ur Leukocyte Esterase (Negative) Salicylates (2.8-20) mg/dl Urine Opiates Screen Pos H (Neg) Ur Methadone, Qual Neg (Neg) Acetaminophen (10-30) ug/ml Urine Barbiturates Neg (Neg) Ur Phencyclidine (PCP) Neg (Neg) U Amphetamin/Meth Scrn Neg (Neg) MDMA (Ecstasy) Screen Pos H (Neg) U Benzodiazepines Scrn Neg (Neg) Ur Cocaine Metabolite Neg (Neg) U Marijuana (THC) Screen Neg (Neg) Ethyl Alcohol mg/dL (0-3) mg/dl 06/02/19 06/02/19 06/02/19 Range/Units 18:30 18:45 18:45 WBC (4.8-10.8) K/uL RBC (4.2-5.4) M/uL Hgb (12.0-16.0) g/dL POC Hgb (12.0-16.0) g/dl Hct (37-47) % POC Hct (37-47) % MCV (80-100) fL MCH (25-34) pg MCHC (32-36) g/dL RDW Std Deviation (36.4-46.3) fL RDW Coeff of Ginger (11.5-14.5) % Plt Count (130-400) K/uL MPV (7.4-10.4) fL Immature Gran % (Auto) % Neut % (Auto) % Lymph % (Auto) % [place] % (Auto) % Eos % (Auto) % Baso % (Auto) % Immature Gran # (Auto) (0.00-0.02) K/uL Neut # (Auto) (1.4-6.5) K/uL Lymph # (Auto) (1.2-3.4) K/uL [place] # (Auto) (0.11-0.59) K/uL Eos # (Auto) (0-0.5) K/uL Baso # (Auto) (0-0.2) K/uL ESR (0-21) mm/hr PT (9.0-12.0) Seconds INR (0.9-1.1) APTT (21.0-31.0) Seconds PTT Ratio VBG pH (7.36-7.41) VBG pCO2 (38-50) mmHg VBG pO2 mmHg VBG HCO3 mmol/L VBG O2 Saturation % VBG Base Excess mEq/L Barometric Pressure mm/Hg POC Sodium (135-144) mEq/L Sodium (136-145) mmol/L POC Potassium (3.3-5.0) mEq/L Potassium (3.5-5.1) mmol/L POC Chloride (101-112) mEq/L Chloride (98-107) mmol/L Carbon Dioxide (21-32) mmol/L POC Total CO2 (24-31) mEq/l Anion Gap (3-11) POC Anion Gap (16-25) mmol/L POC BUN (7-18) mg/dl BUN (7-18) mg/dl Creatinine (0.6-1.2) mg/dl POC Creatinine (0.6-1.3) mg/dl Est Cr Clr Drug Dosing Est GFR ( Amer) Est GFR (Non-Af Amer) BUN/Creatinine Ratio (10-20) Glucose (70-99) mg/dl POC Glucose (other) (70-99) mg/dl Osmolality (280-300) mOsm/kg Lactate 0.9 (0.4-2.0) mmol/L Calcium (8.5-10.1) mg/dl POC Ioniz Calcium Ad (1.12-1.32) mmol/l Magnesium (1.8-2.4) mg/dl Total Bilirubin (0.2-1) mg/dl AST (15-37) U/L ALT (12-78) U/L Alkaline Phosphatase (45-117) U/L Troponin I (0-0.045) ng/ml C-Reactive Protein (0-0.29) mg/dl Total Protein (6.4-8.2) gm/dl Albumin (3.4-5.0) gm/dl Globulin (2.5-4.0) gm/dl Albumin/Globulin Ratio (0.9-2) Procalcitonin (0-0.5) ng/ml Urine Color Yellow Urine Appearance Clear (Clear) Urine pH 5.5 (4.5-7.5) Ur Specific [place] 1.027 (1.000-1.030) Urine Protein Negative (Negative) Urine Glucose (UA) Negative (Negative) Urine Ketones Negative (Negative) Urine Blood Negative (Negative) Urine Nitrite Negative (Negative) Urine Bilirubin Negative (Negative) Urine Urobilinogen Negative (Negative) Ur Leukocyte Esterase Negative (Negative) Salicylates (2.8-20) mg/dl Urine Opiates Screen (Neg) Ur Methadone, Qual (Neg) Acetaminophen (10-30) ug/ml Urine Barbiturates (Neg) Ur Phencyclidine (PCP) (Neg) U Amphetamin/Meth Scrn (Neg) MDMA (Ecstasy) Screen (Neg) U Benzodiazepines Scrn (Neg) Ur Cocaine Metabolite (Neg) U Marijuana (THC) Screen (Neg) Ethyl Alcohol mg/dL < 3.0 (0-3) mg/dl 06/02/19 Range/Units 19:33 WBC (4.8-10.8) K/uL RBC (4.2-5.4) M/uL Hgb (12.0-16.0) g/dL POC Hgb (12.0-16.0) g/dl Hct (37-47) % POC Hct (37-47) % MCV (80-100) fL MCH (25-34) pg MCHC (32-36) g/dL RDW Std Deviation (36.4-46.3) fL RDW Coeff of Ginger (11.5-14.5) % Plt Count (130-400) K/uL MPV (7.4-10.4) fL Immature Gran % (Auto) % Neut % (Auto) % Lymph % (Auto) % [place] % (Auto) % Eos % (Auto) % Baso % (Auto) % Immature Gran # (Auto) (0.00-0.02) K/uL Neut # (Auto) (1.4-6.5) K/uL Lymph # (Auto) (1.2-3.4) K/uL [place] # (Auto) (0.11-0.59) K/uL Eos # (Auto) (0-0.5) K/uL Baso # (Auto) (0-0.2) K/uL ESR (0-21) mm/hr PT (9.0-12.0) Seconds INR (0.9-1.1) APTT (21.0-31.0) Seconds PTT Ratio VBG pH 7.25 L (7.36-7.41) VBG pCO2 59 H (38-50) mmHg VBG pO2 28 mmHg VBG HCO3 25 mmol/L VBG O2 Saturation < 60.0 % VBG Base Excess -2.7 mEq/L Barometric Pressure 729.3 mm/Hg POC Sodium (135-144) mEq/L Sodium (136-145) mmol/L POC Potassium (3.3-5.0) mEq/L Potassium (3.5-5.1) mmol/L POC Chloride (101-112) mEq/L Chloride (98-107) mmol/L Carbon Dioxide (21-32) mmol/L POC Total CO2 (24-31) mEq/l Anion Gap (3-11) POC Anion Gap (16-25) mmol/L POC BUN (7-18) mg/dl BUN (7-18) mg/dl Creatinine (0.6-1.2) mg/dl POC Creatinine (0.6-1.3) mg/dl Est Cr Clr Drug Dosing Est GFR ( Amer) Est GFR (Non-Af Amer) BUN/Creatinine Ratio (10-20) Glucose (70-99) mg/dl POC Glucose (other) (70-99) mg/dl Osmolality (280-300) mOsm/kg Lactate (0.4-2.0) mmol/L Calcium (8.5-10.1) mg/dl POC Ioniz Calcium Ad (1.12-1.32) mmol/l Magnesium (1.8-2.4) mg/dl Total Bilirubin (0.2-1) mg/dl AST (15-37) U/L ALT (12-78) U/L Alkaline Phosphatase (45-117) U/L Troponin I (0-0.045) ng/ml C-Reactive Protein (0-0.29) mg/dl Total Protein (6.4-8.2) gm/dl Albumin (3.4-5.0) gm/dl Globulin (2.5-4.0) gm/dl Albumin/Globulin Ratio (0.9-2) Procalcitonin (0-0.5) ng/ml Urine Color Urine Appearance (Clear) Urine pH (4.5-7.5) Ur Specific [place] (1.000-1.030) Urine Protein (Negative) Urine Glucose (UA) (Negative) Urine Ketones (Negative) Urine Blood (Negative) Urine Nitrite (Negative) Urine Bilirubin (Negative) Urine Urobilinogen (Negative) Ur Leukocyte Esterase (Negative) Salicylates (2.8-20) mg/dl Urine Opiates Screen (Neg) Ur Methadone, Qual (Neg) Acetaminophen (10-30) ug/ml Urine Barbiturates (Neg) Ur Phencyclidine (PCP) (Neg) U Amphetamin/Meth Scrn (Neg) MDMA (Ecstasy) Screen (Neg) U Benzodiazepines Scrn (Neg) Ur Cocaine Metabolite (Neg) U Marijuana (THC) Screen (Neg) Ethyl Alcohol mg/dL (0-3) mg/dl Imaging Data Radiologist's Impression: Radiology results as stated below per my review and the radiologist's interpretation: XR chest 1V portable CLINICAL HISTORY: 68 years-old Female presenting with Sepsis. TECHNIQUE: Portable upright AP view of the chest was obtained. COMPARISON: 04/11/2019. FINDINGS: Atherosclerosis of the aortic arch. Cardiac silhouette enlarged. Mildly low lung volumes. Left basilar opacity new from prior. No large effusion or pneumothorax. Trace left pleural effusion not excluded. Osseous structures normal. Upper abdomen normal. IMPRESSION: 1. Left basilar infiltrate with a suspected associated trace left pleural effusion. Findings suggest pneumonia with a parapneumonic effusion. Differential consideration includes atelectasis. Electronically signed by: Oscar Garnt M.D. 06/02/2019 5:[address] SCAN OF THE BRAIN WITHOUT IV CONTRAST CLINICAL HISTORY: Change in mental status. COMPARISON STUDY: CT of the brain dated 04/11/2019. TECHNIQUE: Unenhanced axial CT scan of the brain is performed from the vertex to the skull base. A dose lowering technique was utilized adhering to the principles of ALARA. FINDINGS: Brain parenchyma: There is minimal microangiopathic change. There is no hemorrhage, mass effect, or evidence of acute territorial ischemia by CT criteria. Forrester-white matter differentiation is preserved. No extra-axial fluid collection is seen. Ventricles, sulci, cisterns: Normal in configuration. Intracranial vasculature: There is atherosclerotic calcification of the cavernous carotid arteries. Calvarium: Unremarkable. Sinuses and mastoids: The visualized paranasal sinuses are clear. The mastoid air cells are well pneumatized. Orbits: The bony orbits are grossly intact. IMPRESSION: There is no hemorrhage, mass effect, or evidence of acute territorial ischemia by CT criteria. Electronically signed by: Casey Caro M.D. 06/02/2019 6:[address] SCAN OF THE CERVICAL SPINE CLINICAL HISTORY: Unresponsive. Change in mental status. COMPARISON STUDY: CT scan of the cervical spine dated 10/05/2018. TECHNIQUE: CT scan of the cervical spine is performed from the skull base to the upper thoracic spine. Images are reviewed in the axial, sagittal, and coronal planes. IV contrast was not administered for this examination. A dose lowering technique was utilized adhering to the principles of ALARA. FINDINGS: Skeletal structures: The skeletal structures are osteopenic. There is no evidence of fracture or subluxation involving the cervical spine. Vertebral body height and alignment are maintained. There is straightening of the cervical lordosis with mild reversal centered at C4-C5. Anterior osteophytes are noted in the lower cervical region. The odontoid process and lateral masses are intact. The atlantoaxial articulation is preserved noting productive degenerative change. The spinous processes appear intact. There is mild multilevel cervical s pondylosis. Uncovertebral and facet arthropathy are seen in the lower cervical region. Intervertebral discs: There is moderate disc space narrowing at C5-C6. Mild disc space narrowing is seen at C4-C5 and C6-C7. Central canal: Posterior disc osteophyte complexes at C5-C6 and C6-C7 likely contribute to mild acquired compromise of the central canal. Soft tissues: The prevertebral and paraspinous soft tissues are within normal limits. Atherosclerotic calcification is noted in the carotid bulbs. Calvarium: The visualized calvarium at the skull base appears intact. Brain parenchyma: Partially visualized brain parenchyma the skull base is within normal limits. Mastoid: Well-pneumatized. Lung apices: Emphysematous change is noted at the lung apices. Imaged apical lung parenchyma is otherwise clear as visualized. IMPRESSION: 1. There is no evidence of fracture or subluxation involving the cervical spine. 2. Osteopenia and mild spondylotic change as above. Electronically signed by: Casey Caro M.D. 06/02/2019 6:[address] ANGIOGRAM OF THE CHEST; CT SCAN OF THE ABDOMEN AND PELVIS WITH IV CONTRAST CLINICAL HISTORY: Unresponsive. COMPARISON STUDY: Chest CT scans dated 04/11/2019 and 08/07/2016. Abdominal CT dated 02/02/2019. TECHNIQUE: Following the IV administration of 119 of Optiray 320, CT angiogram of the chest is performed from the upper abdomen to the thoracic inlet utilizing the pulmonary embolus protocol. Images are reviewed in the axial, sagittal, coronal planes. 3-D MIPS images are created and assessed. Subsequently, CT scan of the abdomen and pelvis was performed from the lung bases to the proximal femora. Images are reviewed in the axial, sagittal, and coronal planes. IV contrast was administered without complication. A dose lowering technique was utilized adhering to the principles of ALARA. The examination is degraded by motion artifact, as well as by streak artifact from the arms which could not be elevated above the chest or abdomen. Streak artifact is seen throughout the abdomen from lumbar spinal fusion hardware. CT DOSE: 2038.65 mGy.cm FINDINGS: CHEST: Thyroid: Imaged portions of the thyroid gland are normal in size and attenuation. Thoracic aorta: There is atherosclerotic calcification of the thoracic aorta, which is normal in caliber and demonstrates standard 3-vessel arch anatomy. No d issection is seen. Pulmonary vasculature: The pulmonary trunk is mildly dilated measuring 3.2 cm in diameter. This suggests pulmonary artery hypertension. There are no filling defects identified in the main, lobar, or proximal segmental pulmonary arteries to indicate pulmonary embolus. Evaluation of the peripheral branches is degraded by streak and motion artifact. Heart: The heart is mildly enlarged and without pericardial effusion. The coronary arteries are densely calcified. Lungs and pleural spaces: Evaluation of the lung parenchyma is degraded by motion artifact. Mild paraseptal emphysematous change is seen at the lung apices. Dependent airspace opacities are seen at both lung bases. No pleural effusion or pneumothorax is seen. The trachea and central airways are clear. Mediastinum: There is no mediastinal lymphadenopathy. Jaky: Clear. Axillae: There is no axillary lymphadenopathy. Bony thorax: The skeletal structures are osteopenic. Degenerative change and mild hyperkyphosis are noted in the thoracic spine. No lytic or blastic lesions are identified. ABDOMEN AND PELVIS: Liver: The contrast-enhanced liver is normal in size, contour, and attenuation. There is no intrahepatic or ductal dilatation. The hepatic veins and portal veins are patent. Gallbladder: Contracted. Spleen: Normal in size and attenuation. Pancreas: Unremarkable. Adrenal glands: Unremarkable. Kidneys: The contrast enhanced kidneys are normal in size and without hydronephrosis. The kidneys enhance symmetrically. There is a 6 mm nonobstructing right renal calculus. Abdominal vasculature: The abdominal aorta is normal in course and caliber noting advanced atherosclerotic calcification. Bowel: There are scattered colonic diverticula without CT evidence of acute diverticulitis. No bowel obstruction is seen. There is fecal retention in the right colon. The appendix is not clearly identified. Peritoneum: There is no intraperitoneal free air or abdominal ascites. Lymphadenopathy: None. Pelvic viscera: The bladder wall appears mildly thickened and there is pericystic inflammation. The uterus and adnexa are normal as visualized. Skeletal structures: The skeletal structures are osteopenic. Lumbosacral spondylosis is noted. There is postoperative change from laminectomy and poste rior fusion from L3 -S1. A bone graft donor site is noted in the right ilium. Sclerotic degenerative change is noted in the sacroiliac joints and pubic symphysis. No lytic or blastic lesions are seen. IMPRESSION: 1. Streak and motion compromised examination. 2. There is no evidence of central pulmonary embolus in the main, lobar, or proximal segmental pulmonary arteries. 3. Dependent airspace opacities are present at both lung bases and likely represent atelectasis. Correlate clinically for evidence of a mild infectious/inflammatory pneumonitis. 4. There is no pleural effusion or pneumothorax. 5. Cardiomegaly and mild emphysema. 6. Findings suggest cystitis. Correlation with clinical findings and urinalysis will be required. 7. Right-sided nephrolithiasis. 8. Additional findings as above. Electronically signed by: Casey Caro M.D. 06/02/2019 6:22 PM ECG Data Attestation: I personally reviewed and interpreted this ECG as follows: Indication: syncope Rate (beats per minute): 63 Rhythm: normal sinus Findings: no PAC, no PVC, no ST depression, no ST elevation, no acute ischemic change and no ectopy Comparison ECG Date: from (04/11/2018) Change: no significant change Blood Pressure Blood Pressure Findings: Low blood pressure Blood Pressure Disposition: further management by hospitalist MDM Narrative The patient is a 68-year-old female who presented to the emergency department with altered mental status. The ambulance was called by her sister when the patient was not answering questions. The patient presented to the emergency department obtunded and hypotensive. The patient had no response to painful or loud verbal commands. The patient was treated with IV fluids in the emergency department. She was also treated with empiric antibiotics. The patient was also given a small dose of Narcan which improved her mental status. Upon questioning she did state that she was having lots of pain from her cancer. She is unsure if she took too much of her pain medication. I discussed patient's laboratory and radiographic studies with her. I also discussed her case with the on-call [facility] hospitalist group. They have agreed to evaluate the patient in the emergency department for further management and disposition. The patient was reevaluated multiple times. Her blood pressure significantly improved after IV hydration. Impression & Plan Altered mental status, Pneumonia, Sepsis, Overdose Discharge Plan Visit Data *Final* Discharge Date/Time: 06/02/19 20:41 Chief Complaint: Unresponsive Stated Complaint: [facility] ED Provider: Eulalio Anne Discharge Problem: Altered mental status, Pneumonia, Sepsis, Overdose Patient Disposition: Being Evaluated by Hospitalist Discharge Instructions Interventions: ED Discharge Assessment Last Done: 06/02/19 20:41 Discharge Problem: Altered mental status Qualifiers: Altered mental status type: unspecified Qualified Code(s): R41.82 - Altered mental status, unspecified Pneumonia Qualifiers: Pneumonia type: due to unspecified organism Laterality: unspecified laterality Lung location: unspecified part of lung Qualified Code(s): J18.9 - Pneumonia, unspecified organism Sepsis Qualifiers: Sepsis type: sepsis due to unspecified organism Qualified Code(s): A41.9 - Sepsis, unspecified organism Overdose Qualifiers: Encounter type: initial encounter Injury intent: undetermined intent Qualified Code(s): T50.904A - Poisoning by unspecified drugs, medicaments and biological substances, undetermined, initial encounter The scribe's documentation has been prepared under my direction and personally reviewed by me in its entirety. I confirm that the note above accurately reflects all work, treatment, procedures, and medical decision making performed by me.
[2019-06-02 17:53] LABS: iSTAT Creatinine 1.3 mg/dl (0.6-1.3); iSTAT Hemoglobin 11.6 g/dl (12.0-16.0); iSTAT Ionized Calcium 1.21 mmol/l (1.12-1.32); iSTAT Potassium 3.4 mEq/L (3.3-5.0)
--- NOTE | 2019-06-02 17:55 | XRay Report ---
XR chest 1V portable CLINICAL HISTORY: 68 years-old Female presenting with Sepsis. TECHNIQUE: Portable upright AP view of the chest was obtained. COMPARISON: 04/11/2019. FINDINGS: Atherosclerosis of the aortic arch. Cardiac silhouette enlarged. Mildly low lung volumes. Left basila r opacity new from prior. No large effusion or pneumothorax. Trace left pleural effusion not excluded . Osseous structures normal. Upper abdomen normal. IMPRESSION: 1. Left basilar infiltrate with a suspected associated trace left pleural effusion. Findings suggest pneumonia with a parapneumonic effusion. Differential consideration includes atelectasis. Electronically signed by: Oscar Grant M.D. 06/02/2019 5:53 PM
[2019-06-02 17:58] LABS: Basophils # (auto) 0.01 K/uL (0-0.2); Basophils % (auto) 0.1 %; Eosinophils # (auto) 0.05 K/uL (0-0.5); Eosinophils % (auto) 0.7 %; Hematocrit (blood only) 37.5 % (37-47); Hemoglobin 11.9 g/dL (12.0-16.0); Immature Granulocytes # (auto) 0.01 K/uL (0.00-0.02); Immature Granulocytes % (auto) 0.1 %; Lymphocytes # (auto) 1.65 K/uL (1.2-3.4); Lymphocytes % (auto) 23.7 %; Mean Corpuscular Hgb Conc 31.7 g/dL (32-36); Mean Corpuscular Volume 101.1 fL (80-100); Mean Platelet Volume 10.1 fL (7.4-10.4); Monocytes % (auto) 7.2 %; Neutrophils # (auto) 4.75 K/uL (1.4-6.5); Neutrophils % (auto) 68.2 %; Platelet Count 262 K/uL (130-400); RDW Coefficient of Variation 15.8 % (11.5-14.5); RDW Standard Deviation 59.1 fL (36.4-46.3); Red Blood Count 3.71 M/uL (4.2-5.4); White Blood Count 6.97 K/uL (4.8-10.8)
[2019-06-02] MEDS ORDERED: NALOXONE HCL 0.4 MG/1 ML VIAL/CARP IV STA ×2 (18:01→20:02)
[2019-06-02 18:05] LABS: Alanine Aminotransferase 6 U/L (12-78); Albumin Level 3.5 gm/dl (3.4-5.0); Aspartate Aminotransferase 6 U/L (15-37); BUN Creatinine Ratio 9.5 (10-20); Blood Urea Nitrogen 12 mg/dl (7-18); Calcium 8.4 mg/dl (8.5-10.1); Carbon Dioxide 29 mmol/L (21-32); Chloride 109 mmol/L (98-107); Est GFR (African American) 50.4; Est GFR (Non-African American) 43.5; Glucose 110 mg/dl (70-99); Magnesium 2.1 mg/dl (1.8-2.4); Potassium 3.5 mmol/L (3.5-5.1); Sodium 143 mmol/L (136-145)
[2019-06-02 18:07] LABS: Partial Thromboplastin Time 26.5 Seconds (21.0-31.0); Prothrombin Time 10.3 Seconds (9.0-12.0)
--- NOTE | 2019-06-02 18:07 | CT Scan Report ---
CT SCAN OF THE CERVICAL SPINE CLINICAL HISTORY: Unresponsive. Change in mental status. COMPARISON STUDY: CT scan of the cervical spine dated 10/05/2018. TECHNIQUE: CT scan of the cervical spine is performed from the skull base to the upper thoracic spine . Images are reviewed in the axial, sagittal, and coronal planes. IV contrast was not administered fo r this examination. A dose lowering technique was utilized adhering to the principles of ALARA. FINDINGS: Skeletal structures: The skeletal structures are osteopenic. There is no evidence of fracture or subl uxation involving the cervical spine. Vertebral body height and alignment are maintained. There is s traightening of the cervical lordosis with mild reversal centered at C4-C5. Anterior osteophytes are noted in the lower cervical region. The odontoid process and lateral masses are intact. The atlantoax ial articulation is preserved noting productive degenerative change. The spinous processes appear int act. There is mild multilevel cervical spondylosis. Uncovertebral and facet arthropathy are seen in t he lower cervical region. Intervertebral discs: There is moderate disc space narrowing at C5-C6. Mild disc space narrowing is s een at C4-C5 and C6-C7. Central canal: Posterior disc osteophyte complexes at C5-C6 and C6-C7 likely contribute to mild acqui red compromise of the central canal. Soft tissues: The prevertebral and paraspinous soft tissues are within normal limits. Atherosclerotic calcification is noted in the carotid bulbs. Calvarium: The visualized calvarium at the skull base appears intact. Brain parenchyma: Partially visualized brain parenchyma the skull base is within normal limits. Mastoid: Well-pneumatized. Lung apices: Emphysematous change is noted at the lung apices. Imaged apical lung parenchyma is other ortez clear as visualized. IMPRESSION: 1. There is no evidence of fracture or subluxation involving the cervical spine. 2. Osteopenia and mild spondylotic change as above. Electronically signed by: Casey Caro M.D. 06/02/2019 6:06 PM
[2019-06-02 18:10] LABS: Albumin Globulin Ratio 1.3 (0.9-2); Alkaline Phosphatase 57 U/L (45-117); Bilirubin,Total 0.4 mg/dl (0.2-1); C Reactive Protein 0.36 mg/dl (0-0.29); Globulin 2.6 gm/dl (2.5-4.0); Total Protein 6.1 gm/dl (6.4-8.2); Troponin I < 0.015 ng/ml (0-0.045)
--- NOTE | 2019-06-02 18:10 | CT Scan Report ---
CT SCAN OF THE BRAIN WITHOUT IV CONTRAST CLINICAL HISTORY: Change in mental status. COMPARISON STUDY: CT of the brain dated 04/11/2019. TECHNIQUE: Unenhanced axial CT scan of the brain is performed from the vertex to the skull base. A d ose lowering technique was utilized adhering to the principles of ALARA. FINDINGS: Brain parenchyma: There is minimal microangiopathic change. There is no hemorrhage, mass effect, or e vidence of acute territorial ischemia by CT criteria. Forrester-white matter differentiation is preserved. No extra-axial fluid collection is seen. Ventricles, sulci, cisterns: Normal in configuration. Intracranial vasculature: There is atherosclerotic calcification of the cavernous carotid arteries. Calvarium: Unremarkable. Sinuses and mastoids: The visualized paranasal sinuses are clear. The mastoid air cells are well pneu matized. Orbits: The bony orbits are grossly intact. IMPRESSION: There is no hemorrhage, mass effect, or evidence of acute territorial ischemia by CT liam rizvi. Electronically signed by: Casey Caro M.D. 06/02/2019 6:08 PM
[2019-06-02] MEDS ORDERED: PIPERACILLIN/TAZOBACTAM 4.5 GM/120 ML BAG IV ONE (18:16)
[2019-06-02] MEDS ORDERED: PIPERACILL/TAZOBAC CONSULT ACTIVE PRN (18:16)
--- NOTE | 2019-06-02 18:24 | CT Scan Report ---
CT ANGIOGRAM OF THE CHEST; CT SCAN OF THE ABDOMEN AND PELVIS WITH IV CONTRAST CLINICAL HISTORY: Unresponsive. COMPARISON STUDY: Chest CT scans dated 04/11/2019 and 08/07/2016. Abdominal CT dated 02/02/2019. TECHNIQUE: Following the IV administration of 119 of Optiray 320, CT angiogram of the chest is perfor med from the upper abdomen to the thoracic inlet utilizing the pulmonary embolus protocol. Images are reviewed in the axial, sagittal, coronal planes. 3-D MIPS images are created and assessed. Subsequen tly, CT scan of the abdomen and pelvis was performed from the lung bases to the proximal femora. Imag es are reviewed in the axial, sagittal, and coronal planes. IV contrast was administered without comp lication. A dose lowering technique was utilized adhering to the principles of ALARA. The examination is degraded by motion artifact, as well as by streak artifact from the arms which could not be eleva juan above the chest or abdomen. Streak artifact is seen throughout the abdomen from lumbar spinal fus ion hardware. CT DOSE: 2038.65 mGy.cm FINDINGS: CHEST: Thyroid: Imaged portions of the thyroid gland are normal in size and attenuation. Thoracic aorta: There is atherosclerotic calcification of the thoracic aorta, which is normal in mila pam and demonstrates standard 3-vessel arch anatomy. No dissection is seen. Pulmonary vasculature: The pulmonary trunk is mildly dilated measuring 3.2 cm in diameter. This sugge sts pulmonary artery hypertension. There are no filling defects identified in the main, lobar, or pro ximal segmental pulmonary arteries to indicate pulmonary embolus. Evaluation of the peripheral branch es is degraded by streak and motion artifact. Heart: The heart is mildly enlarged and without pericardial effusion. The coronary arteries are dense ly calcified. Lungs and pleural spaces: Evaluation of the lung parenchyma is degraded by motion artifact. Mild para septal emphysematous change is seen at the lung apices. Dependent airspace opacities are seen at both lung bases. No pleural effusion or pneumothorax is seen. The trachea and central airways are clear. Mediastinum: There is no mediastinal lymphadenopathy. Jaky: Clear. Axillae: There is no axillary lymphadenopathy. Bony thorax: The skeletal structures are osteopenic. Degenerative change and mild hyperkyphosis are n oted in the thoracic spine. No lytic or blastic lesions are identified. ABDOMEN AND PELVIS: Liver: The contrast-enhanced liver is normal in size, contour, and attenuation. There is no intrahepa tic or ductal dilatation. The hepatic veins and portal veins are patent. Gallbladder: Contracted. Spleen: Normal in size and attenuation. Pancreas: Unremarkable. Adrenal glands: Unremarkable. Kidneys: The contrast enhanced kidneys are normal in size and without hydronephrosis. The kidneys enh ance symmetrically. There is a 6 mm nonobstructing right renal calculus. Abdominal vasculature: The abdominal aorta is normal in course and caliber noting advanced atheroscle rotic calcification. Bowel: There are scattered colonic diverticula without CT evidence of acute diverticulitis. No bowel obstruction is seen. There is fecal retention in the right colon. The appendix is not clearly identi fied. Peritoneum: There is no intraperitoneal free air or abdominal ascites. Lymphadenopathy: None. Pelvic viscera: The bladder wall appears mildly thickened and there is pericystic inflammation. The u terus and adnexa are normal as visualized. Skeletal structures: The skeletal structures are osteopenic. Lumbosacral spondylosis is noted. There is postoperative change from laminectomy and posterior fusion from L3 -S1. A bone graft donor site is noted in the right ilium. Sclerotic degenerative change is noted in the sacroiliac joints and pubic symphysis. No lytic or blastic lesions are seen. IMPRESSION: 1. Streak and motion compromised examination. 2. There is no evidence of central pulmonary embolus in the main, lobar, or proximal segmental pulmon ivcky arteries. 3. Dependent airspace opacities are present at both lung bases and likely represent atelectasis. Elvia elate clinically for evidence of a mild infectious/inflammatory pneumonitis. 4. There is no pleural effusion or pneumothorax. 5. Cardiomegaly and mild emphysema. 6. Findings suggest cystitis. Correlation with clinical findings and urinalysis will be required. 7. Right-sided nephrolithiasis. 8. Additional findings as above. Electronically signed by: Casey Caro M.D. 06/02/2019 6:22 PM
[2019-06-02 18:46] LABS: Appearance Urine Clear (Clear); Bilirubin Urine Negative (Negative); Blood Urine Negative (Negative); Color Urine Yellow; Glucose Urine UA Negative (Negative); Ketones Urine Negative (Negative); Leukocyte Esterase Urine Negative (Negative); Nitrite Urine Negative (Negative); Protein Urine Negative (Negative); Specific Gravity Urine 1.027 (1.000-1.030); Urobilinogen Urine Negative (Negative); pH Urine 5.5 (4.5-7.5)
[2019-06-02 19:05] LABS: Amphetamines+Metham, Urine Neg (Neg); Barbiturates, Urine Neg (Neg); Benzodiazepine, Urine Neg (Neg); Cocaine, Urine Neg (Neg); MDMA (Ecstacy), Urine Pos (Neg); Methadone, Urine Neg (Neg); Opiate, Urine Pos (Neg); Phencyclidine, Urine Neg (Neg)
[2019-06-02 19:09] LABS: Acetaminophen < 2 ug/ml (10-30); Salicylate < 1.7 mg/dl (2.8-20)
[2019-06-02 19:43] LABS: Base Excess VBG -2.7 mEq/L; HCO3 VBG 25 mmol/L; PCO2 VBG 59 mmHg (38-50); PO2 VBG 28 mmHg; pH VBG 7.25 (7.36-7.41)
[2019-06-02 19:53] LABS: Oxygen Saturation VBG < 60.0 %
--- NOTE | 2019-06-02 20:02 | History & Physical Report ---
Date of Service June 02, 2019 Assessment & Plan (1) Obtundation: Patient brought in, minimally responsive. Etiology uncertain at this time. She was initially hypotensive with blood pressure of 74.41 which responded to IVF, otherwise, afebrile and hemodynamically stable. Initial workup pursued by ER unrevealing to include normal chemistry, mild macrocytic anemia, negative UA. Utox positive for opiates and MDMA. Patient was administered Narcan with some improvement in mental status. She was administered an additional dose with no effect. Ddx to include medication overdose, specifically sedating medications, Opiates/Benzos. Acute respiratory acidosis with pH of 7.25, pCO2=59. Patient with history of COPD. Must also consider malignancy or CVA, possible seizure with post-ictal state. At this time patient with adequate respiratory rate and is protecting her airway. She has had suicidal gestures in the past, uncertain if she overdosed this evening. -Admit to PCU with continuous pulse oximetry -BiPAP for hypercarbic respiratory failure, goal saturation of 88 - 92% in [place] ent with COPD and CO2 retention -Check TSH, B12, Ammonia level Present on Admission?: Yes (2) Metastatic malignant neoplasm of unknown primary site: ? Patient had an MRI of brain on 01/31/19 showed a 17 mm indeterminate focus of marrow replacement involving the right occipital bone. She had a metastatic workup to include CT of her chest/abdomen/pelvis, mammogram, bone scan and colonoscopy which revealed no evidence of malignancy. Bone Scan on 02/01 that showed radiotracer uptake of right occipital calvarium as well as moderate tracer uptake in the midthoracic and lumbar spine, most likely secondary to degenerative changes over metastatic disease. She was seen by Dr. Jernigan from Oncology. He favors that the process in the calvarium is most likely a benign lesion such as epidermoid or intraosseous hemangioma and does not believe that she does, in fact have a malignancy. Given her obtundation will check MRI to assess for possible CVA vs extension of lesion. Last MRI on 03/20/10 which redemonstrated a 2.1cm right occipital lesion similar to prior. CT does not mention calvarium lesion. -MRI Brain Present on Admission?: Yes (3) Hypertension: Will hold antihypertensive agents for now given hypotension on arrival -Continue to monitor BP Present on Admission?: Yes (4) COPD (chronic obstructive pulmonary disease): Patient with acute hypercarbic RF at present, pH=7.25, CO2=59 -Will attempt BiPAP for ventilation -Goal saturation 88 - 92% -DuoNebs PRN (5) GERD (gastroesophageal reflux disease): Chronic. -Patient NPO for now -May resume Omeprazole when MS improves Present on Admission?: Yes (6) Depression: Chronic. Patient was evaluated by Psych during a prior admission -Holding all PO medications at this time -Caution with resuming sedating agents Present on Admission?: Yes (7) Hypotension: Blood pressure improved with IVF. -Continue NSS -Continue to monitor F/E/N - NSS, electrolytes WNL, NPO for now given AMS Ppx - Lovenox Code - Full per review of old records Dispo - Admit to PCU History of Present Illness Chief Complaint: Obtundation Primary Care Provider: Yelena Keita MD Patricia Caro is a 68yo C female with history of PD, HTN, Anxiety/Depression, COPD and GERD. She previously carried the diagnosis of metastatic neoplasm of unknown primary, however, she has been seen by Oncology and this diagnosis is not thought to be accurate. She has had multiple hospital admissions in the past. She presents today with her sister after being found minimally responsive at home. Upon arrival to the ER she was hypotensive and minimally arousable. She was treated with IVF, empiric antibiotics and a small dose of Narcan with improvement in her mental status. Patient somnolent and minimally responsive. Does not answer questions or follow commands. History obtained through chart and discussion with ER attending. Allergies Allergy/AdvReac Type Severity Reaction Status Date / Time nicotine Allergy Intermediate skin Verified 04/27/19 14:49 irritation bee venom protein (honey bee) Allergy Unknown "I PASS Verified 04/27/19 14:49 OUT." bupropion Allergy Unknown unknown Verified 04/27/19 14:49 codeine Allergy Unknown unknown - Verified 04/27/19 14:49 TOLERATES PERCOCET Sulfa (Sulfonamide Allergy Unknown . Verified 04/27/19 14:49 Antibiotics) hydromorphone [From Dilaudid] AdvReac Unresponsiv Verified 04/27/19 14:49 e morphine AdvReac Unresponsiv Verified 04/27/19 14:49 e Home Medications Home Medications Medication Instructions Recorded Confirmed Type amlodipine 5 mg PO QAM 08/07/18 06/02/19 History fluticasone propionate [Flonase 2 spray INTRANASAL DAILY PRN 08/07/18 04/27/19 History Allergy Relief] hydrochlorothiazide 25 mg PO QAM 08/07/18 04/27/19 History lamotrigine [Lamictal] 50 mg PO HS 08/07/18 04/27/19 History lisinopril 20 mg PO QAM 08/07/18 04/27/19 History omeprazole 20 mg PO QAM 08/07/18 04/27/19 History gabapentin 600 mg PO TID 01/31/19 04/27/19 History famotidine [Pepcid] 40 mg PO HS #30 tab 03/08/19 04/27/19 Rx aspirin 81 mg PO DAILY 03/19/19 06/02/19 History clonidine HCl 0.3 mg tablet 0.3 mg PO BID #60 tab 04/27/19 04/27/19 Rx cyanocobalamin (vit B-12) 1,000 1,000 mcg PO DAILY #1 tab 04/27/19 04/27/19 History mcg tablet carbidopa 25 mg-levodopa 250 mg 1 tab PO .COMPLEX #210 tab 05/17/19 Rx tablet hydralazine 10 mg tablet 10 mg PO TID #90 tab 06/01/19 Rx acetaminophen [Tylenol Extra 1,000 mg PO QID PRN 06/02/19 06/02/19 History Strength] baclofen 10 - 20 mg PO Q8H PRN 06/02/19 06/02/19 History clonazepam 0.5 mg PO HS 06/02/19 06/02/19 History clonazepam 1 mg PO QAM 06/02/19 06/02/19 History duloxetine 30 mg PO DAILY 06/02/19 06/02/19 History oxycodone 5 mg PO BID PRN 06/02/19 06/02/19 History tramadol 50 mg PO Q6H PRN 06/02/19 06/02/19 History trazodone 200 mg PO HS 06/02/19 06/02/19 History Past Med/Surg History Social History Preferred Language: Monegasque Communication Ability: Effective Visual Impairment: Limited Hearing Ability: Normal Beliefs That Will Affect Care: None marital status: / Current Living Situation: Family Current Living Situation Comment: sister current occupational status: disabled Feels Safe at Home: Yes Smoking Status: Current every day smoker Tobacco Type: cigarettes (25 pack year hx quit several years ago, apparently recently restarted) Cigarettes Per Day: 4 Second Hand Exposure: No Hx Alcohol Use: No Hx Substance Use: No Review of Systems Review of Systems: Unobtainable due to reduced consciousness Physical Exam Physical Exam: General: patient sleeping, RR of 13, audible snoring. Minimally arousable to noxious stimuli. Answers all questions with "Ava" Skin: warm, dry, intact, no rashes/lesions HEENT: NC/AT, facial bones stable, pupils small and sluggishly reactive bilaterally, external ear normal to palpation, nares patent, dry mucus membranes with poor dentition, neck supple, trachea midline, no JVD Heart: +S1/S2, regular, no m/r/g Lungs: Equal air entry bilaterally, no rales/rhonchi/wheezes, +sonorous breath sounds Abd: +BS, soft, NT/DN, no masses/organomegaly or Ext: warm, palpable pulses, no edema Neuro: patient somnolent, minimal response to noxious stimuli Results & Data Vital Signs (Past 12 Hours) Vital Signs Temp Pulse Pulse Resp BP BP Pulse Ox 06/02/19 19:26 70 14 115/66 98 06/02/19 18:15 75 19 116/67 99 06/02/19 18:10 71 15 116/67 99 06/02/19 18:03 68 116/67 06/02/19 18:01 71 06/02/19 17:40 59 L 13 06/02/19 17:31 64 13 81/39 L 98 06/02/19 17:30 64 14 96 06/02/19 17:27 36.3 C L 64 14 74/41 L 88 L 06/02/19 17:26 63 15 96 06/02/19 17:17 66 18 74/41 L 95 Laboratory Results Lab Results 06/02/19 06/02/19 06/02/19 Range/Units 17:20 17:20 17:20 WBC 6.97 (4.8-10.8) K/uL RBC 3.71 L (4.2-5.4) M/uL Hgb 11.9 L (12.0-16.0) g/dL POC Hgb (12.0-16.0) g/dl Hct 37.5 (37-47) % POC Hct (37-47) % MCV 101.1 H (80-100) fL MCH 32.1 (25-34) pg MCHC 31.7 L (32-36) g/dL RDW Std Deviation 59.1 H (36.4-46.3) fL RDW Coeff of Ginger 15.8 H (11.5-14.5) % Plt Count 262 (130-400) K/uL MPV 10.1 (7.4-10.4) fL Immature Gran % (Auto) 0.1 % Neut % (Auto) 68.2 % Lymph % (Auto) 23.7 % Hudson % (Auto) 7.2 % Eos % (Auto) 0.7 % Baso % (Auto) 0.1 % Immature Gran # (Auto) 0.01 (0.00-0.02) K/uL Neut # (Auto) 4.75 (1.4-6.5) K/uL Lymph # (Auto) 1.65 (1.2-3.4) K/uL Hudson # (Auto) 0.50 (0.11-0.59) K/uL Eos # (Auto) 0.05 (0-0.5) K/uL Baso # (Auto) 0.01 (0-0.2) K/uL ESR (0-21) mm/hr PT 10.3 (9.0-12.0) Seconds INR 1.0 (0.9-1.1) APTT 26.5 (21.0-31.0) Seconds PTT Ratio 1.0 VBG pH (7.36-7.41) VBG pCO2 (38-50) mmHg VBG pO2 mmHg VBG HCO3 mmol/L VBG O2 Saturation % VBG Base Excess mEq/L Barometric Pressure mm/Hg POC Sodium (135-144) mEq/L Sodium 143 (136-145) mmol/L POC Potassium (3.3-5.0) mEq/L Potassium 3.5 (3.5-5.1) mmol/L POC Chloride (101-112) mEq/L Chloride 109 H (98-107) mmol/L Carbon Dioxide 29 (21-32) mmol/L POC Total CO2 (24-31) mEq/l Anion Gap 5.0 (3-11) POC Anion Gap (16-25) mmol/L POC BUN (7-18) mg/dl BUN 12 (7-18) mg/dl Creatinine 1.28 H (0.6-1.2) mg/dl POC Creatinine (0.6-1.3) mg/dl Est Cr Clr Drug Dosing Not Reportable Est GFR ( Amer) 50.4 Est GFR (Non-Af Amer) 43.5 BUN/Creatinine Ratio 9.5 L (10-20) Glucose 110 H (70-99) mg/dl POC Glucose (other) (70-99) mg/dl Osmolality (280-300) mOsm/kg Lactate (0.4-2.0) mmol/L Calcium 8.4 L (8.5-10.1) mg/dl POC Ioniz Calcium Ad (1.12-1.32) mmol/l Magnesium 2.1 (1.8-2.4) mg/dl Total Bilirubin 0.4 (0.2-1) mg/dl AST 6 L (15-37) U/L ALT 6 L (12-78) U/L Alkaline Phosphatase 57 (45-117) U/L Troponin I < 0.015 (0-0.045) ng/ml C-Reactive Protein 0.36 H (0-0.29) mg/dl Total Protein 6.1 L (6.4-8.2) gm/dl Albumin 3.5 (3.4-5.0) gm/dl Globulin 2.6 (2.5-4.0) gm/dl Albumin/Globulin Ratio 1.3 (0.9-2) Procalcitonin (0-0.5) ng/ml Urine Color Urine Appearance (Clear) Urine pH (4.5-7.5) Ur Specific [place] (1.000-1.030) Urine Protein (Negative) Urine Glucose (UA) (Negative) Urine Ketones (Negative) Urine Blood (Negative) Urine Nitrite (Negative) Urine Bilirubin (Negative) Urine Urobilinogen (Negative) Ur Leukocyte Esterase (Negative) Salicylates (2.8-20) mg/dl Urine Opiates Screen (Neg) Ur Methadone, Qual (Neg) Acetaminophen (10-30) ug/ml Urine Barbiturates (Neg) Ur Phencyclidine (PCP) (Neg) U Amphetamin/Meth Scrn (Neg) MDMA (Ecstasy) Screen (Neg) U Benzodiazepines Scrn (Neg) Ur Cocaine Metabolite (Neg) U Marijuana (THC) Screen (Neg) Ethyl Alcohol mg/dL (0-3) mg/dl 06/02/19 06/02/19 06/02/19 Range/Units 17:20 17:20 17:20 WBC (4.8-10.8) K/uL RBC (4.2-5.4) M/uL Hgb (12.0-16.0) g/dL POC Hgb (12.0-16.0) g/dl Hct (37-47) % POC Hct (37-47) % MCV (80-100) fL MCH (25-34) pg MCHC (32-36) g/dL RDW Std Deviation (36.4-46.3) fL RDW Coeff of Ginger (11.5-14.5) % Plt Count (130-400) K/uL MPV (7.4-10.4) fL Immature Gran % (Auto) % Neut % (Auto) % Lymph % (Auto) % [place] % (Auto) % Eos % (Auto) % Baso % (Auto) % Immature Gran # (Auto) (0.00-0.02) K/uL Neut # (Auto) (1.4-6.5) K/uL Lymph # (Auto) (1.2-3.4) K/uL [place] # (Auto) (0.11-0.59) K/uL Eos # (Auto) (0-0.5) K/uL Baso # (Auto) (0-0.2) K/uL ESR 8 (0-21) mm/hr PT (9.0-12.0) Seconds INR (0.9-1.1) APTT (21.0-31.0) Seconds PTT Ratio VBG pH (7.36-7.41) VBG pCO2 (38-50) mmHg VBG pO2 mmHg VBG HCO3 mmol/L VBG O2 Saturation % VBG Base Excess mEq/L Barometric Pressure mm/Hg POC Sodium (135-144) mEq/L Sodium (136-145) mmol/L POC Potassium (3.3-5.0) mEq/L Potassium (3.5-5.1) mmol/L POC Chloride (101-112) mEq/L Chloride (98-107) mmol/L Carbon Dioxide (21-32) mmol/L POC Total CO2 (24-31) mEq/l Anion Gap (3-11) POC Anion Gap (16-25) mmol/L POC BUN (7-18) mg/dl BUN (7-18) mg/dl Creatinine (0.6-1.2) mg/dl POC Creatinine (0.6-1.3) mg/dl Est Cr Clr Drug Dosing Est GFR ( Amer) Est GFR (Non-Af Amer) BUN/Creatinine Ratio (10-20) Glucose (70-99) mg/dl POC Glucose (other) (70-99) mg/dl Osmolality 297 (280-300) mOsm/kg Lactate (0.4-2.0) mmol/L Calcium (8.5-10.1) mg/dl POC Ioniz Calcium Ad (1.12-1.32) mmol/l Magnesium (1.8-2.4) mg/dl Total Bilirubin (0.2-1) mg/dl AST (15-37) U/L ALT (12-78) U/L Alkaline Phosphatase (45-117) U/L Troponin I (0-0.045) ng/ml C-Reactive Protein (0-0.29) mg/dl Total Protein (6.4-8.2) gm/dl Albumin (3.4-5.0) gm/dl Globulin (2.5-4.0) gm/dl Albumin/Globulin Ratio (0.9-2) Procalcitonin (0-0.5) ng/ml Urine Color Urine Appearance (Clear) Urine pH (4.5-7.5) Ur Specific [place] (1.000-1.030) Urine Protein (Negative) Urine Glucose (UA) (Negative) Urine Ketones (Negative) Urine Blood (Negative) Urine Nitrite (Negative) Urine Bilirubin (Negative) Urine Urobilinogen (Negative) Ur Leukocyte Esterase (Negative) Salicylates < 1.7 L (2.8-20) mg/dl Urine Opiates Screen (Neg) Ur Methadone, Qual (Neg) Acetaminophen < 2 L (10-30) ug/ml Urine Barbiturates (Neg) Ur Phencyclidine (PCP) (Neg) U Amphetamin/Meth Scrn (Neg) MDMA (Ecstasy) Screen (Neg) U Benzodiazepines Scrn (Neg) Ur Cocaine Metabolite (Neg) U Marijuana (THC) Screen (Neg) Ethyl Alcohol mg/dL (0-3) mg/dl 06/02/19 06/02/19 06/02/19 Range/Units 17:30 17:41 18:30 WBC (4.8-10.8) K/uL RBC (4.2-5.4) M/uL Hgb (12.0-16.0) g/dL POC Hgb 11.6 L (12.0-16.0) g/dl Hct (37-47) % POC Hct 34 L (37-47) % MCV (80-100) fL MCH (25-34) pg MCHC (32-36) g/dL RDW Std Deviation (36.4-46.3) fL RDW Coeff of Ginger (11.5-14.5) % Plt Count (130-400) K/uL MPV (7.4-10.4) fL Immature Gran % (Auto) % Neut % (Auto) % Lymph % (Auto) % [place] % (Auto) % Eos % (Auto) % Baso % (Auto) % Immature Gran # (Auto) (0.00-0.02) K/uL Neut # (Auto) (1.4-6.5) K/uL Lymph # (Auto) (1.2-3.4) K/uL Hudson # (Auto) (0.11-0.59) K/uL Eos # (Auto) (0-0.5) K/uL Baso # (Auto) (0-0.2) K/uL ESR (0-21) mm/hr PT (9.0-12.0) Seconds INR (0.9-1.1) APTT (21.0-31.0) Seconds PTT Ratio VBG pH (7.36-7.41) VBG pCO2 (38-50) mmHg VBG pO2 mmHg VBG HCO3 mmol/L VBG O2 Saturation % VBG Base Excess mEq/L Barometric Pressure mm/Hg POC Sodium 143 (135-144) mEq/L Sodium (136-145) mmol/L POC Potassium 3.4 (3.3-5.0) mEq/L Potassium (3.5-5.1) mmol/L POC Chloride 103 (101-112) mEq/L Chloride (98-107) mmol/L Carbon Dioxide (21-32) mmol/L POC Total CO2 27 (24-31) mEq/l Anion Gap (3-11) POC Anion Gap 17.0 (16-25) mmol/L POC BUN 11 (7-18) mg/dl BUN (7-18) mg/dl Creatinine (0.6-1.2) mg/dl POC Creatinine 1.3 (0.6-1.3) mg/dl Est Cr Clr Drug Dosing Est GFR ( Amer) Est GFR (Non-Af Amer) BUN/Creatinine Ratio (10-20) Glucose (70-99) mg/dl POC Glucose (other) 112 H (70-99) mg/dl Osmolality (280-300) mOsm/kg Lactate (0.4-2.0) mmol/L Calcium (8.5-10.1) mg/dl POC Ioniz Calcium Ad 1.21 (1.12-1.32) mmol/l Magnesium (1.8-2.4) mg/dl Total Bilirubin (0.2-1) mg/dl AST (15-37) U/L ALT (12-78) U/L Alkaline Phosphatase (45-117) U/L Troponin I (0-0.045) ng/ml C-Reactive Protein (0-0.29) mg/dl Total Protein (6.4-8.2) gm/dl Albumin (3.4-5.0) gm/dl Globulin (2.5-4.0) gm/dl Albumin/Globulin Ratio (0.9-2) Procalcitonin < 0.05 (0-0.5) ng/ml Urine Color Urine Appearance (Clear) Urine pH (4.5-7.5) Ur Specific [place] (1.000-1.030) Urine Protein (Negative) Urine Glucose (UA) (Negative) Urine Ketones (Negative) Urine Blood (Negative) Urine Nitrite (Negative) Urine Bilirubin (Negative) Urine Urobilinogen (Negative) Ur Leukocyte Esterase (Negative) Salicylates (2.8-20) mg/dl Urine Opiates Screen Pos H (Neg) Ur Methadone, Qual Neg (Neg) Acetaminophen (10-30) ug/ml Urine Barbiturates Neg (Neg) Ur Phencyclidine (PCP) Neg (Neg) U Amphetamin/Meth Scrn Neg (Neg) MDMA (Ecstasy) Screen Pos H (Neg) U Benzodiazepines Scrn Neg (Neg) Ur Cocaine Metabolite Neg (Neg) U Marijuana (THC) Screen Neg (Neg) Ethyl Alcohol mg/dL (0-3) mg/dl 06/02/19 06/02/19 06/02/19 Range/Units 18:30 18:45 18:45 WBC (4.8-10.8) K/uL RBC (4.2-5.4) M/uL Hgb (12.0-16.0) g/dL POC Hgb (12.0-16.0) g/dl Hct (37-47) % POC Hct (37-47) % MCV (80-100) fL MCH (25-34) pg MCHC (32-36) g/dL RDW Std Deviation (36.4-46.3) fL RDW Coeff of Ginger (11.5-14.5) % Plt Count (130-400) K/uL MPV (7.4-10.4) fL Immature Gran % (Auto) % Neut % (Auto) % Lymph % (Auto) % Hudson % (Auto) % Eos % (Auto) % Baso % (Auto) % Immature Gran # (Auto) (0.00-0.02) K/uL Neut # (Auto) (1.4-6.5) K/uL Lymph # (Auto) (1.2-3.4) K/uL Hudson # (Auto) (0.11-0.59) K/uL Eos # (Auto) (0-0.5) K/uL Baso # (Auto) (0-0.2) K/uL ESR (0-21) mm/hr PT (9.0-12.0) Seconds INR (0.9-1.1) APTT (21.0-31.0) Seconds PTT Ratio VBG pH (7.36-7.41) VBG pCO2 (38-50) mmHg VBG pO2 mmHg VBG HCO3 mmol/L VBG O2 Saturation % VBG Base Excess mEq/L Barometric Pressure mm/Hg POC Sodium (135-144) mEq/L Sodium (136-145) mmol/L POC Potassium (3.3-5.0) mEq/L Potassium (3.5-5.1) mmol/L POC Chloride (101-112) mEq/L Chloride (98-107) mmol/L Carbon Dioxide (21-32) mmol/L POC Total CO2 (24-31) mEq/l Anion Gap (3-11) POC Anion Gap (16-25) mmol/L POC BUN (7-18) mg/dl BUN (7-18) mg/dl Creatinine (0.6-1.2) mg/dl POC Creatinine (0.6-1.3) mg/dl Est Cr Clr Drug Dosing Est GFR ( Amer) Est GFR (Non-Af Amer) BUN/Creatinine Ratio (10-20) Glucose (70-99) mg/dl POC Glucose (other) (70-99) mg/dl Osmolality (280-300) mOsm/kg Lactate 0.9 (0.4-2.0) mmol/L Calcium (8.5-10.1) mg/dl POC Ioniz Calcium Ad (1.12-1.32) mmol/l Magnesium (1.8-2.4) mg/dl Total Bilirubin (0.2-1) mg/dl AST (15-37) U/L ALT (12-78) U/L Alkaline Phosphatase (45-117) U/L Troponin I (0-0.045) ng/ml C-Reactive Protein (0-0.29) mg/dl Total Protein (6.4-8.2) gm/dl Albumin (3.4-5.0) gm/dl Globulin (2.5-4.0) gm/dl Albumin/Globulin Ratio (0.9-2) Procalcitonin (0-0.5) ng/ml Urine Color Yellow Urine Appearance Clear (Clear) Urine pH 5.5 (4.5-7.5) Ur Specific [place] 1.027 (1.000-1.030) Urine Protein Negative (Negative) Urine Glucose (UA) Negative (Negative) Urine Ketones Negative (Negative) Urine Blood Negative (Negative) Urine Nitrite Negative (Negative) Urine Bilirubin Negative (Negative) Urine Urobilinogen Negative (Negative) Ur Leukocyte Esterase Negative (Negative) Salicylates (2.8-20) mg/dl Urine Opiates Screen (Neg) Ur Methadone, Qual (Neg) Acetaminophen (10-30) ug/ml Urine Barbiturates (Neg) Ur Phencyclidine (PCP) (Neg) U Amphetamin/Meth Scrn (Neg) MDMA (Ecstasy) Screen (Neg) U Benzodiazepines Scrn (Neg) Ur Cocaine Metabolite (Neg) U Marijuana (THC) Screen (Neg) Ethyl Alcohol mg/dL < 3.0 (0-3) mg/dl 06/02/19 Range/Units 19:33 WBC (4.8-10.8) K/uL RBC (4.2-5.4) M/uL Hgb (12.0-16.0) g/dL POC Hgb (12.0-16.0) g/dl Hct (37-47) % POC Hct (37-47) % MCV (80-100) fL MCH (25-34) pg MCHC (32-36) g/dL RDW Std Deviation (36.4-46.3) fL RDW Coeff of Ginger (11.5-14.5) % Plt Count (130-400) K/uL MPV (7.4-10.4) fL Immature Gran % (Auto) % Neut % (Auto) % Lymph % (Auto) % [place] % (Auto) % Eos % (Auto) % Baso % (Auto) % Immature Gran # (Auto) (0.00-0.02) K/uL Neut # (Auto) (1.4-6.5) K/uL Lymph # (Auto) (1.2-3.4) K/uL [place] # (Auto) (0.11-0.59) K/uL Eos # (Auto) (0-0.5) K/uL Baso # (Auto) (0-0.2) K/uL ESR (0-21) mm/hr PT (9.0-12.0) Seconds INR (0.9-1.1) APTT (21.0-31.0) Seconds PTT Ratio VBG pH 7.25 L (7.36-7.41) VBG pCO2 59 H (38-50) mmHg VBG pO2 28 mmHg VBG HCO3 25 mmol/L VBG O2 Saturation < 60.0 % VBG Base Excess -2.7 mEq/L Barometric Pressure 729.3 mm/Hg POC Sodium (135-144) mEq/L Sodium (136-145) mmol/L POC Potassium (3.3-5.0) mEq/L Potassium (3.5-5.1) mmol/L POC Chloride (101-112) mEq/L Chloride (98-107) mmol/L Carbon Dioxide (21-32) mmol/L POC Total CO2 (24-31) mEq/l Anion Gap (3-11) POC Anion Gap (16-25) mmol/L POC BUN (7-18) mg/dl BUN (7-18) mg/dl Creatinine (0.6-1.2) mg/dl POC Creatinine (0.6-1.3) mg/dl Est Cr Clr Drug Dosing Est GFR ( Amer) Est GFR (Non-Af Amer) BUN/Creatinine Ratio (10-20) Glucose (70-99) mg/dl POC Glucose (other) (70-99) mg/dl Osmolality (280-300) mOsm/kg Lactate (0.4-2.0) mmol/L Calcium (8.5-10.1) mg/dl POC Ioniz Calcium Ad (1.12-1.32) mmol/l Magnesium (1.8-2.4) mg/dl Total Bilirubin (0.2-1) mg/dl AST (15-37) U/L ALT (12-78) U/L Alkaline Phosphatase (45-117) U/L Troponin I (0-0.045) ng/ml C-Reactive Protein (0-0.29) mg/dl Total Protein (6.4-8.2) gm/dl Albumin (3.4-5.0) gm/dl Globulin (2.5-4.0) gm/dl Albumin/Globulin Ratio (0.9-2) Procalcitonin (0-0.5) ng/ml Urine Color Urine Appearance (Clear) Urine pH (4.5-7.5) Ur Specific [place] (1.000-1.030) Urine Protein (Negative) Urine Glucose (UA) (Negative) Urine Ketones (Negative) Urine Blood (Negative) Urine Nitrite (Negative) Urine Bilirubin (Negative) Urine Urobilinogen (Negative) Ur Leukocyte Esterase (Negative) Salicylates (2.8-20) mg/dl Urine Opiates Screen (Neg) Ur Methadone, Qual (Neg) Acetaminophen (10-30) ug/ml Urine Barbiturates (Neg) Ur Phencyclidine (PCP) (Neg) U Amphetamin/Meth Scrn (Neg) MDMA (Ecstasy) Screen (Neg) U Benzodiazepines Scrn (Neg) Ur Cocaine Metabolite (Neg) U Marijuana (THC) Screen (Neg) Ethyl Alcohol mg/dL (0-3) mg/dl Diagnostic Findings CT SCAN OF THE BRAIN WITHOUT IV CONTRAST CLINICAL HISTORY: Change in mental status. COMPARISON STUDY: CT of the brain dated 04/11/2019. TECHNIQUE: Unenhanced axial CT scan of the brain is performed from the vertex to the skull base. A dose lowering technique was utilized adhering to the principles of ALARA. FINDINGS: Brain parenchyma: There is minimal microangiopathic change. There is no hemorrhage, mass effect, or evidence of acute territorial ischemia by CT criteria. Forrester-white matter differentiation is preserved. No extra-axial fluid collection is seen. Ventricles, sulci, cisterns: Normal in configuration. Intracranial vasculature: There is atherosclerotic calcification of the cavernous carotid arteries. Calvarium: Unremarkable. Sinuses and mastoids: The visualized paranasal sinuses are clear. The mastoid air cells are well pneumatized. Orbits: The bony orbits are grossly intact. IMPRESSION: There is no hemorrhage, mass effect, or evidence of acute territorial ischemia by CT criteria. Electronically signed by: Casey Caro M.D. 06/02/2019 6:08 PM Dictated: 06/02/191805 Transcribed: 06/02/19 180 XR chest 1V portable CLINICAL HISTORY: 68 years-old Female presenting with Sepsis. TECHNIQUE: Portable upright AP view of the chest was obtained. COMPARISON: 04/11/2019. FINDINGS: Atherosclerosis of the aortic arch. Cardiac silhouette enlarged. Mildly low lung volumes. Left basilar opacity new from prior. No large effusion or pneumothorax. Trace left pleural effusion not excluded. Osseous structures normal. Upper abdomen normal. IMPRESSION: 1. Left basilar infiltrate with a suspected associated trace left pleural effusion. Findings suggest pneumonia with a parapneumonic effusion. Differential consideration includes atelectasis. Electronically signed by: Oscar Grant M.D. 06/02/2019 5:53 PM Dictated: 06/02/191750 Transcribed: 06/02/191750 CT ANGIOGRAM OF THE CHEST; CT SCAN OF THE ABDOMEN AND PELVIS WITH IV CONTRAST CLINICAL HISTORY: Unresponsive. COMPARISON STUDY: Chest CT scans dated 04/11/2019 and 08/07/2016. Abdominal CT dated 02/02/2019. TECHNIQUE: Following the IV administration of 119 of Optiray 320, CT angiogram of the chest is performed from the upper abdomen to the thoracic inlet utilizing the pulmonary embolus protocol. Images are reviewed in the axial, sagittal, jannette nal planes. 3-D MIPS images are created and assessed. Subsequently, CT scan of the abdomen and pelvis was performed from the lung bases to the proximal femora. Images are reviewed in the axial, sagittal, and coronal planes. IV contrast was administered without complication. A dose lowering technique was utilized adhering to the principles of ALARA. The examination is degraded by motion artifact, as well as by streak artifact from the arms which could not be elevated above the chest or abdomen. Streak artifact is seen throughout the abdomen from lumbar spinal fusion hardware. CT DOSE: 2038.65 mGy.cm FINDINGS: CHEST: Thyroid: Imaged portions of the thyroid gland are normal in size and attenuation. Thoracic aorta: There is atherosclerotic calcification of the thoracic aorta, which is normal in caliber and demonstrates standard 3-vessel arch anatomy. No dissection is seen. Pulmonary vasculature: The pulmonary trunk is mildly dilated measuring 3.2 cm in diameter. This suggests pulmonary artery hypertension. There are no filling defects identified in the main, lobar, or proximal segmental pulmonary arteries to indicate pulmonary embolus. Evaluation of the peripheral branches is degraded by streak and motion artifact. Heart: The heart is mildly enlarged and without pericardial effusion. The coronary arteries are densely calcified. Lungs and pleural spaces: Evaluation of the lung parenchyma is degraded by motion artifact. Mild paraseptal emphysematous change is seen at the lung apices. Dependent airspace opacities are seen at both lung bases. No pleural effusion or pneumothorax is seen. The trachea and central airways are clear. Mediastinum: There is no mediastinal lymphadenopathy. Jaky: Clear. Axillae: There is no axillary lymphadenopathy. Bony thorax: The skeletal structures are osteopenic. Degenerative change and mild hyperkyphosis are noted in the thoracic spine. No lytic or blastic lesions are identified. ABDOMEN AND PELVIS: Liver: The contrast-enhanced liver is normal in size, contour, and attenuation. There is no intrahepatic or ductal dilatation. The hepatic veins and portal veins are patent. Gallbladder: Contracted. Spleen: Normal in size and attenuation. Pancreas: Unremarkable. Adrenal glands: Unremarkable. Kidneys: The contrast enhanced kidneys are normal in size and without hydronephrosis. The kidneys enhance symmetrically. There is a 6 mm nonobstructing right renal calculus. Abdominal vasculature: The abdominal aorta is normal in course and caliber noting advanced atherosclerotic calcification. Bowel: There are scattered colonic diverticula without CT evidence of acute diverticulitis. No bowel obstruction is seen. There is fecal retention in the right colon. The appendix is not clearly identified. Peritoneum: There is no intraperitoneal free air or abdominal ascites. Lymphadenopathy: None. Pelvic viscera: The bladder wall appears mildly thickened and there is pericystic inflammation. The uterus and adnexa are normal as visualized. Skeletal structures: The skeletal structures are osteopenic. Lumbosacral spondylosis is noted. There is postoperative change from laminectomy and posterior fusion from L3 -S1. A bone graft donor site is noted in the right ilium. Sclerotic degenerative change is noted in the sacroiliac joints and pubic symphysis. No lytic or blastic lesions are seen. IMPRESSION: 1. Streak and motion compromised examination. 2. There is no evidence of central pulmonary embolus in the main, lobar, or proximal segmental pulmonary arteries. 3. Dependent airspace opacities are present at both lung bases and likely represent atelectasis. Correlate clinically for evidence of a mild infectious/inflammatory pneumonitis. 4. There is no pleural effusion or pneumothorax. 5. Cardiomegaly and mild emphysema. 6. Findings suggest cystitis. Correlation with clinical findings and urinalysis will be required. 7. Right-sided nephrolithiasis. 8. Additional findings as above. CT SCAN OF THE CERVICAL SPINE CLINICAL HISTORY: Unresponsive. Change in mental status. COMPARISON STUDY: CT scan of the cervical spine dated 10/05/2018. TECHNIQUE: CT scan of the cervical spine is performed from the skull base to the upper thoracic spine. Images are reviewed in the axial, sagittal, and coronal planes. IV contrast was not administered for this examination. A dose lowering technique was utilized adhering to the principles of ALARA. FINDINGS: Skeletal structures: The skeletal structures are osteopenic. There is no evidence of fracture or subluxation involving the cervical spine. Vertebral body height and alignment are maintained. There is straightening of the cervical lordosis with mild reversal centered at C4-C5. Anterior osteophytes are noted in the lower cervical region. The odontoid process and lateral masses are intact. The atlantoaxial articulation is preserved noting productive degenerative change. The spinous processes appear intact. There is mild multilevel cervical spondylosis. Uncovertebral and facet arthropathy are seen in the lower cervical region. Intervertebral discs: There is moderate disc space narrowing at C5-C6. Mild disc space narrowing is seen at C4-C5 and C6-C7. Central canal: Posterior disc osteophyte complexes at C5-C6 and C6-C7 likely contribute to mild acquired compromise of the central canal. Soft tissues: The prevertebral and paraspinous soft tissues are within normal limits. Atherosclerotic calcification is noted in the carotid bulbs. Calvarium: The visualized calvarium at the skull base appears intact. Brain parenchyma: Partially visualized brain parenchyma the skull base is within normal limits. Mastoid: Well-pneumatized. Lung apices: Emphysematous change is noted at the lung apices. Imaged apical lung parenchyma is otherwise clear as visualized. IMPRESSION: 1. There is no evidence of fracture or subluxation involving the cervical spine. 2. Osteopenia and mild spondylotic change as above. Electronically signed by: Casey Caro M.D. 06/02/2019 6:06 PM Dictated: 06/02/191802 Transcribed: 06/02/191802 CT ANGIOGRAM OF THE CHEST; CT SCAN OF THE ABDOMEN AND PELVIS WITH IV CONTRAST CLINICAL HISTORY: Unresponsive. COMPARISON STUDY: Chest CT scans dated 04/11/2019 and 08/07/2016. Abdominal CT dated 02/02/2019. TECHNIQUE: Following the IV administration of 119 of Optiray 320, CT angiogram of the chest is performed from the upper abdomen to the thoracic inlet utilizing the pulmonary embolus protocol. Images are reviewed in the axial, sagittal, coronal planes. 3-D MIPS images are created and assessed. Subsequently, CT scan of the abdomen and pelvis was performed from the lung bases to the proximal femora. Images are reviewed in the axial, sagittal, and coronal planes. IV contrast was administered without complication. A dose lowering technique was utilized adhering to the principles of ALARA. The examination is degraded by motion artifact, as well as by streak artifact from the arms which could not be elevated above the chest or abdomen. Streak artifact is seen throughout the abdomen from lumbar spinal fusion hardware. CT DOSE: 2038.65 mGy.cm FINDINGS: CHEST: Thyroid: Imaged portions of the thyroid gland are normal in size and attenuation. Thoracic aorta: There is atherosclerotic calcification of the thoracic aorta, which is normal in caliber and demonstrates standard 3-vessel arch anatomy. No dissection is seen. Pulmonary vasculature: The pulmonary trunk is mildly dilated measuring 3.2 cm in diameter. This suggests pulmonary artery hypertension. There are no filling defects identified in the main, lobar, or proximal segmental pulmonary arteries to indicate pulmonary embolus. Evaluation of the peripheral branches is degraded by streak and motion artifact. Heart: The heart is mildly enlarged and without pericardial effusion. The coronary arteries are densely calcified. Lungs and pleural spaces: Evaluation of the lung parenchyma is degraded by motion artifact. Mild paraseptal emphysematous change is seen at the lung apices. Dependent airspace opacities are seen at both lung bases. No pleural effusion or pneumothorax is seen. The trachea and central airways are clear. Mediastinum: There is no mediastinal lymphadenopathy. Jaky: Clear. Axillae: There is no axillary lymphadenopathy. Bony thorax: The skeletal structures are osteopenic. Degenerative change and mild hyperkyphosis are noted in the thoracic spine. No lytic or blastic lesions are identified. ABDOMEN AND PELVIS: Liver: The contrast-enhanced liver is normal in size, contour, and attenuation. There is no intrahepatic or ductal dilatation. The hepatic veins and portal veins are patent. Gallbladder: Contracted. Spleen: Normal in size and attenuation. Pancreas: Unremarkable. Adrenal glands: Unremarkable. Kidneys: The contrast enhanced kidneys are normal in size and without hydronephrosis. The kidneys enhance symmetrically. There is a 6 mm nonobstructing right renal calculus. Abdominal vasculature: The abdominal aorta is normal in course and caliber noting advanced atherosclerotic calcification. Bowel: There are scattered colonic diverticula without CT evidence of acute diverticulitis. No bowel obstruction is seen. There is fecal retention in the right colon. The appendix is not clearly identified. Peritoneum: There is no intraperitoneal free air or abdominal ascites. Lymphadenopathy: None. Pelvic viscera: The bladder wall appears mildly thickened and there is pericystic inflammation. The uterus and adnexa are normal as visualized. Skeletal structures: The skeletal structures are osteopenic. Lumbosacral spondylosis is noted. There is postoperative change from laminectomy and posterior fusion from L3 -S1. A bone graft donor site is noted in the right ilium. Sclerotic degenerative change is noted in the sacroiliac joints and pubic symphysis. No lytic or blastic lesions are seen. IMPRESSION: 1. Streak and motion compromised examination. 2. There is no evidence of central pulmonary embolus in the main, lobar, or proximal segmental pulmonary arteries. 3. Dependent airspace opacities are present at both lung bases and likely represent atelectasis. Correlate clinically for evidence of a mild infectious/inflammatory pneumonitis. 4. There is no pleural effusion or pneumothorax. 5. Cardiomegaly and mild emphysema. 6. Findings suggest cystitis. Correlation with clinical findings and urinalysis will be required. 7. Right-sided nephrolithiasis. 8. Additional findings as above. Electronically signed by: Casey Caro M.D. 06/02/2019 6:22 PM Dictated: 07/17/19 1810 Transcribed: 07/17/19 1810 ECG Additional Comments: ORDERED Code Status & VTE Plan Code Status FULL VTE Prophylaxis Plan VTE Prophylaxis will be ordered: Yes PG Care Time/CCT Total # of Minutes Spent Total Time Spent with Patient: Total time spent is greater than 50% in coordination of care (as documented) at patient's floor/unit and/or counseling patient: 65 min (1) Hypertension Hypertension type: essential hypertension Qualified Code(s): I10 - Essential (primary) hypertension (2) COPD (chronic obstructive pulmonary disease) COPD type: unspecified COPD Qualified Code(s): J44.9 - Chronic obstructive pulmonary disease, unspecified (3) GERD (gastroesophageal reflux disease) Esophagitis presence: esophagitis presence not specified Qualified Code(s): K21.9 - Gastro-esophageal reflux disease without esophagitis (4) Depression Depression Type: unspecified Qualified Code(s): F32.9 - Major depressive disorder, single episode, unspecified
[2019-06-02 20:13] LABS: Base Excess VBG -2.5 mEq/L; Oxygen Saturation VBG 96.6 %; pH VBG 7.29 (7.36-7.41)
[2019-06-02] MEDS ORDERED: ACETAMINOPHEN 325 MG TAB PO PRN (21:16)
[2019-06-02] MEDS ORDERED: DOCUSATE SODIUM 100 MG CAP PO PRN (21:16)
[2019-06-02] MEDS ORDERED: ONDANSETRON INJ 2 MG/ML 2 ML VIAL IV PRN (21:16)
[2019-06-02] MEDS ORDERED: ALBUT/IPRATROP 3MG/0.5MG NEB 3 ML VIAL NEB PRN (21:16)
[2019-06-02] MEDS ORDERED: SODIUM CHLORIDE 0.9% 1000ML 1,000 ML IV SCH (21:16)
[2019-06-02 22:09] LABS: Phosphorus 3.9 mg/dl (2.5-4.9)
[2019-06-03] MEDS ORDERED: GADOBUTROL 65ML VIAL IV PRN (05:21)
[2019-06-03 05:51] LABS: Basophils # (auto) 0.01 K/uL (0-0.2); Basophils % (auto) 0.2 %; Eosinophils # (auto) 0.09 K/uL (0-0.5); Eosinophils % (auto) 1.9 %; Hematocrit (blood only) 38.1 % (37-47); Hemoglobin 11.9 g/dL (12.0-16.0); Lymphocytes # (auto) 1.18 K/uL (1.2-3.4); Lymphocytes % (auto) 24.7 %; Mean Corpuscular Hgb Conc 31.2 g/dL (32-36); Mean Corpuscular Volume 100.5 fL (80-100); Mean Platelet Volume 9.6 fL (7.4-10.4); Monocytes # (auto) 0.45 K/uL (0.11-0.59); Monocytes % (auto) 9.4 %; Neutrophils # (auto) 3.05 K/uL (1.4-6.5); Neutrophils % (auto) 63.8 %; Platelet Count 198 K/uL (130-400); RDW Coefficient of Variation 15.8 % (11.5-14.5); Red Blood Count 3.79 M/uL (4.2-5.4); White Blood Count 4.78 K/uL (4.8-10.8)
[2019-06-03 06:20] LABS: Calcium 8.2 mg/dl (8.5-10.1); Creatinine Clr Calc Pharmacy 102.9 ml/min; Est GFR (Non-African American) 96.6; Potassium 3.7 mmol/L (3.5-5.1)
--- NOTE | 2019-06-03 06:49 | Magnetic Resonance Report ---
MR brain wo/w con CLINICAL HISTORY: obtunded mental status change COMPARISON STUDY: CT brain 04/11/2019. CT brain 06/02/2019. MRI brain 03/20/2019. TECHNIQUE: Utilizing a 1.5 Dali magnet and dedicated coil, multiplanar, multiecho imaging of the br ain was performed pre and postcontrast administration. IV administration of 8.5 mL of Gadavist contr ast was uneventful. FINDINGS: Slightly expansile region of the left frontal bone unchanged compared to prior CT studies. Slight nonspecific dural enhancement bilaterally. This is considered a chronic finding possibly relat ed to intracranial hypotension in the past. No abnormal postcontrast parenchymal enhancement. The ventricular system is midline. No evidence for an acute ischemic event. The ventricular system is midline. Mild age-related chronic small vessel change. IMPRESSION: 1. No acute intracranial abnormality. 2. Mild age-related chronic small vessel change. 3. Slightly expansile lesion left frontal bone and occipital region which have been previously descri bed appear unchanged. The above report was generated using voice recognition software. It may contain grammatical, syntax or spelling errors. Electronically signed by: Dwayne Becker M.D. 06/03/2019 6:48 AM
[2019-06-03] MEDS: ENOXAPARIN INJ 40 MG/0.4 ML SYR SQ SCH (07:57)
[2019-06-03] MEDS: OXYCODONE HCL 10 MG TABCR (OXYCONTIN) PO SCH ×2 (11:37→21:09)
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
[2019-06-03] MEDS ORDERED: FLUTICASONE PROPIONATE NA SPR 16 GM BTL NAE PRN (12:53)
[2019-06-03] MEDS: TRAMADOL HCL 50 MG TABLET PO PRN (14:59)
[2019-06-03] MEDS: PANTOprazole 40 MG TAB PO SCH (15:46)
[2019-06-03] MEDS: GABAPENTIN 600 MG TAB PO SCH ×2 (16:41→21:09)
[2019-06-03] MEDS: CARBIDOPA/LEVODOPA 25-250 1 EA TAB PO SCH ×3 (16:42→21:12)
[2019-06-03] MEDS: LISINOPRIL 20 MG TAB PO SCH (16:42)
[2019-06-03] MEDS: HydrALAZINE 10 MG TAB PO SCH ×2 (16:43→21:16)
[2019-06-03] MEDS ORDERED: OXYCODONE HCL IR 5 MG TAB (IMMEDIATE RELEASE) PO STA (17:26)
[2019-06-03] MEDS ORDERED: lamoTRIgine 25 MG TAB PO SCH (21:00)
[2019-06-03] MEDS ORDERED: FAMOTIDINE 20 MG TAB PO SCH (21:00)
[2019-06-03] MEDS ORDERED: clonazePAM 0.5 MG TAB PO SCH (21:00)
[2019-06-03] MEDS ORDERED: TRAZODONE HCL 100 MG TAB PO SCH (21:00)
--- NOTE | 2019-06-03 23:13 | Hospitalist Progress Note ---
Date of Service June 03, 2019 Assessment & Plan (1) Metastatic malignant neoplasm of unknown primary site: ? Patient had an MRI of brain on 01/31/19 showed a 17 mm indeterminate focus of marrow replacement involving the right occipital bone. She had a metastatic workup to include CT of her chest/abdomen/pelvis, mammogram, bone scan and colonoscopy which revealed no evidence of malignancy. Bone Scan on 02/01 that showed radiotracer uptake of right occipital calvarium as well as moderate tracer uptake in the midthoracic and lumbar spine, most likely secondary to degenerative changes over metastatic disease. She was seen by Dr. Jernigan from Oncology. He favors that the process in the calvarium is most likely a benign lesion such as epidermoid or intraosseous hemangioma and does not believe that she does, in fact have a malignancy. Given her obtundation will check MRI to assess for possible CVA vs extension of lesion. Last MRI on 03/20/10 which redemonstrated a 2.1cm right occipital lesion similar to prior. CT does not mention calvarium lesion. After discussing case with Dr. Sharon Massey over the phone, wiill no longer pursue this diagnosis. (2) Chronic pain: Patient has severe DJD of spine. Multiple images done as outpatient. Patient has hardware in herlumbar spine. Patient requesting repeat lumbar spine MRI. At ths point, do not see benefit of this. May help though for outpatient provider as patient continues to be fixated on this, but would prefer reassuring the patient. Giving that oxycodone 5mg PO BID was not controlling the pain. Patient placed on 10 mg of oxycontin BID. Patient states this is not helping and gave one order of tramadol. And then one rder of oxycodone. Plan is to discharge in AM if cleared by [facility]. (3) Obtundation: Toxic Metabolic encepahlopathy Patoemt was brought in due to questionable unintentional overdose of baclofen. Currently her mental status has imroved. Given her medical background, it seems odd that she would take too much baclofen by accident. Will obtain psych consult. Utox positive for opiates and MDMA. Patient was administered Narcan with some improvement in mental status. She was administered an additional dose with no effect. Ddx to include medication overdose, specifically sedating medications, Opiates/Benzos. Acute respiratory acidosis with pH of 7.25, pCO2=59. Patient with history of COPD. She has had suicidal gestures in the past, uncertain if she overdosed this evening. Will transfer patient out of [facility] (4) Hypertension: RESUMED HOME MEDS. -Continue to monitor BP (5) COPD (chronic obstructive pulmonary disease): Patient with acute hypercarbic RF at present, pH=7.25, CO2=59 -Will attempt BiPAP for ventilation -Goal saturation 88 - 92% -DuoNebs PRN (6) GERD (gastroesophageal reflux disease): Chronic. RESUMED OMEPRAZOLE (7) Depression: Chronic. Restarted psych meds. (8) Hypotension: Blood pressure improved with IVF. -Continue NSS -Continue to monitor F/E/N - NSS, electrolytes WNL, NPO for now given AMS Ppx - Lovenox Code - Full per review of old records spent 65 minutes in managment of patient 8:00 to 9:05 Subjective Patient is a pleasant 68 yo female. She states she has psych history with anxiety as well as chronic pain of her lumbar spine. She is concerned about possible cancer diagnosis: (though outpatient Oncologist has reviewed her case extensively and states she does not have cancer) Patient denies suicide ideation and states it was accidental overdose of baclofen. 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 Patient reports he oxycodone does not completely help her. Review of Systems Review of Systems: All systems reviewed & are unremarkable except as noted in HPI & below Physical Exam Physical Exam: General: Patient is awake, alert." Skin: warm, dry, intact, no rashes/lesions HEENT: NC/AT, facial bones stable, pupils small and sluggishly reactive bilaterally, external ear normal to palpation, nares patent, neck supple, trachea midline, no JVD Heart: +S1/S2, regular, no m/r/g Lungs: Equal air entry bilaterally, no rales/rhonchi/wheezes, Abd: +BS, soft, NT/DN, no masses/organomegaly or Ext: warm, palpable pulses, no edema Neuro: AAOX4 Results & Data Vital Signs (Past 12 Hours) Vital Signs Temp Pulse Pulse Resp BP Pulse Ox 06/03/19 21:13 77 166/96 H 06/03/19 20:25 36.9 C 74 18 165/85 H 95 06/03/19 16:45 82 126/88 06/03/19 16:00 36.8 C 78 20 145/89 H 96 06/03/19 11:46 37.2 C 80 18 153/74 H 94 PG Care Time/CCT Total # of Minutes Spent Total Time Spent with Patient: Total time spent is greater than 50% in coordination of care (as documented) at patient's floor/unit and/or counseling patient: Prolonged Care Time Prolonged Care Time: Yes Total Prolonged Care Time: 65 (1) Depression Depression Type: unspecified Qualified Code(s): F32.9 - Major depressive disorder, single episode, unspecified (2) COPD (chronic obstructive pulmonary disease) COPD type: unspecified COPD Qualified Code(s): J44.9 - Chronic obstructive pulmonary disease, unspecified (3) GERD (gastroesophageal reflux disease) Esophagitis presence: esophagitis presence not specified Qualified Code(s): K21.9 - Gastro-esophageal reflux disease without esophagitis (4) Hypertension Hypertension type: essential hypertension Qualified Code(s): I10 - Essential (primary) hypertension (5) Chronic pain Chronic pain type: other chronic pain Qualified Code(s): G89.29 - Other chronic pain
[2019-06-04] MEDS: TRAMADOL HCL 50 MG TABLET PO PRN (02:35)
[2019-06-04] MEDS: CARBIDOPA/LEVODOPA 25-250 1 EA TAB PO SCH ×4 (06:05→15:10)
--- NOTE | 2019-06-04 07:52 | Hospitalist Progress Note ---
Date of Service June 04, 2019 Assessment & Plan (1) Metastatic malignant neoplasm of unknown primary site: Patient had an MRI of brain on 01/31/19 showed a 17 mm indeterminate focus of marrow replacement involving the right occipital bone. She had a metastatic workup to include CT of her chest/abdomen/pelvis, mammogram, bone scan and colonoscopy which revealed no evidence of malignancy. Bone Scan on 02/01 that showed radiotracer uptake of right occipital calvarium as well as moderate trac er uptake in the midthoracic and lumbar spine, most likely secondary to degenerative changes over metastatic disease. She was seen by Dr. Jernigan from Oncology. He favors that the process in the calvarium is most likely a benign lesion such as epidermoid or intraosseous hemangioma and does not believe that she does, in fact have a malignancy. Given her obtundation will check MRI to assess for possible CVA vs extension of lesion. Last MRI on 03/20/10 which re demonstrated a 2.1cm right occipital lesion similar to prior. CT does not mention calvarium lesion. After discussing case with Dr. Sharon Massey over the phone, will no longer pursue this diagnosis.Pt advised to follow up with -oncology. Referred to pain management and her pCP. (2) Chronic pain: Patient has severe DJD of spine. Multiple images done as outpatient. Patient has hardware in her lumbar spine. Patient requesting repeat lumbar spine MRI. At ths point, do not see benefit of this. May help though for outpatient provider as patient continues to be fixated on this, but would prefer reassuring the patient. Giving that oxycodone 5mg PO BID was not controlling the pain. Patient placed on 10 mg of oxycontin BID. Patient states this is not helping and gave one order of tramadol. Plan to d/c home this morning, waiting for psych clearance. (3) Obtundation: Now this problem is resolved. Toxic Metabolic encephalopathy Pt was brought in due to questionable unintentional overdose of baclofen.Pt is now alert and oriented x 3 and decisional. She sound reasonable and she denies any suicidal thoughts. Currently her mental status has improved. Given her medical background, it seems odd that she would take too much baclofen by accident. Will obtain psych consult. Utox positive for opiates and MDMA. Patient was administered Narcan with some improvement in mental status. She was administered an additional dose with no effect. Ddx to include medication overdose, specifically sedating medications, Opiates/Benzos. Acute respiratory acidosis with pH of 7.25, pCO2=59. Patient with history of COPD. (4) Hypertension: RESUMED HOME MEDS. -Continue to monitor BP (5) COPD (chronic obstructive pulmonary disease): This problem has been resolved.Patient with acute hypercarbic RF at present, pH=7.25, CO2=59 -Will attempt BiPAP for ventilation -Goal saturation 88 - 92% -DuoNebs PRN (6) GERD (gastroesophageal reflux disease): Chronic. RESUMED OMEPRAZOLE (7) Depression: Chronic. Restarted psych meds. (8) Hypotension: Blood pressure improved with IVF. -Continue NSS -Continue to monitor F/E/N - NSS, electrolytes WNL, NPO for now given AMS Ppx - Lovenox Code - Full per review of old records spent 65 minutes in managment of patient 8:00 to 9:05 Subjective Pt seen and examined at the bedside.Resting in bed. Pt is completely awake and alert. She is eager to go home. Pt states that she accidentally swallowed three oxycodone tablets instead of two and that was a reason why she was not responsive when she was brought to the hospital. Pt repeatedly stated that she was not suicidal and that she loves to live and to have healthy life. Pt reports that she has chronic back pain and she takes opioids for that reason. Pt was advised to cut down on opioids and take it only when she is in severe pain. She is also referred to the pain management outpatient clinic to be reassess further on. Pt was recommended to consider other modalities for the pain relief such as acupuncture, tumaric MD, yoga etc. Review of Systems Review of Systems: All systems reviewed & are unremarkable except as noted in HPI & below Physical Exam Constitutional: WD/WN, vitals as above well developed and well nourished Eyes: PERRL, conjunctivae normal, anicteric sclerae ENMT: external ear and nose normal, oropharynx normal Neck: trachea midline, no thyromegaly Respiratory: normal respiratory effort, lungs clear to auscultation Cardiovascular: RRR, no murmur, no edema Chest (Breasts): normal inspection/palpation of breasts Gastrointestinal (Abdomen): normal bowel sounds, soft, nontender, no hepatosplenomegaly Musculoskeletal: no cyanosis or clubbing, extremities motor strength 5/5 Skin: no rashes, warm and dry Neurologic: patellar DTR's 2+ bilat, sensation intact Psychiatric: A+Ox3, euthymic affect Genitourinary: no vaginal lesions, no adnexal mass Lymphatic: no cervical or axillary lymphadenopathy Results & Data Vital Signs (Past 12 Hours) Vital Signs Temp Pulse Resp BP Pulse Ox 06/04/19 04:58 37.4 C 76 20 122/71 96 06/03/19 23:52 36.7 C 92 H 19 129/81 91 06/03/19 21:13 77 166/96 H 06/03/19 20:25 36.9 C 74 18 165/85 H 95 PG Care Time/CCT Total # of Minutes Spent Total Time Spent with Patient: Total time spent is greater than 50% in coordination of care (as documented) at patient's floor/unit and/or counseling patient: (1) Chronic pain Chronic pain type: other chronic pain Qualified Code(s): G89.29 - Other chronic pain (2) Depression Depression Type: unspecified Qualified Code(s): F32.9 - Major depressive disorder, single episode, unspecified (3) COPD (chronic obstructive pulmonary disease) COPD type: unspecified COPD Qualified Code(s): J44.9 - Chronic obstructive pulmonary disease, unspecified (4) GERD (gastroesophageal reflux disease) Esophagitis presence: esophagitis presence not specified Qualified Code(s): K21.9 - Gastro-esophageal reflux disease without esophagitis (5) Hypertension Hypertension type: essential hypertension Qualified Code(s): I10 - Essential (primary) hypertension
[2019-06-04] MEDS ORDERED: CYANOCOBALAMIN 500 MCG TABLET (VITAMIN B-12) PO SCH (09:00)
[2019-06-04] MEDS ORDERED: ASPIRIN 81 MG ECTAB PO SCH (09:00)
[2019-06-04] MEDS ORDERED: hydroCHLOROthiazide 25 MG TAB PO SCH (09:00)
[2019-06-04] MEDS ORDERED: AMLODIPINE BESYLATE 5 MG TAB PO SCH (09:00)
[2019-06-04] MEDS ORDERED: DULOXETINE HCL 30 MG CAP PO SCH (09:00)
[2019-06-04] MEDS: PANTOprazole 40 MG TAB PO SCH (09:20)
[2019-06-04] MEDS: ENOXAPARIN INJ 40 MG/0.4 ML SYR SQ SCH (09:21)
[2019-06-04] MEDS: GABAPENTIN 600 MG TAB PO SCH ×2 (09:21→15:10)
[2019-06-04] MEDS: HydrALAZINE 10 MG TAB PO SCH ×2 (09:24→15:10)
[2019-06-04] MEDS: OXYCODONE HCL 10 MG TABCR (OXYCONTIN) PO SCH (09:36)
[2019-06-04] MEDS: LISINOPRIL 20 MG TAB PO SCH (10:13)
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
[2019-06-05 12:45] LABS: Codeine Urine NEGATIVE NG/ML (CUTOFF=50); Hydrocodone Urine NEGATIVE NG/ML (CUTOFF=50); Hydromor Urine NEGATIVE NG/ML (CUTOFF=50); Morphine Urine NEGATIVE NG/ML (CUTOFF=50); Norhydrocodone Conf Ur NEGATIVE NG/ML (CUTOFF=50); Noroxycodone Urine 3680 NG/ML (CUTOFF=50); Oxycodone Urine 1930 NG/ML (CUTOFF=50); Oxymorph Urine 1160 NG/ML (CUTOFF=50)
== END 2019-06-04 16:07 | disposition home health service (06) | DRG 917 ==
LOC: ED 17:09 → SUATTDRO 19:56 → 1E 19:56 → 2N 06-03 12:27

== ENCOUNTER 2019-10-01 22:15 | Inpatient (IN) ==
[2019-10-01] MEDS ORDERED: ONDANSETRON INJ 2 MG/ML 2 ML VIAL IV STA (22:44)
[2019-10-01] MEDS ORDERED: MoRPHine SULFATE 4 MG/ML 1 ML CARP\\VIAL IV STA (22:44)
[2019-10-01] MEDS ORDERED: SODIUM CHLORIDE 0.9% 1000ML 1,000 ML IV SCH (22:45)
[2019-10-01 23:25] LABS: Basophils # (auto) 0.02 K/uL (0-0.2); Basophils % (auto) 0.1 %; Eosinophils # (auto) 0.05 K/uL (0-0.5); Eosinophils % (auto) 0.4 %; Hematocrit (blood only) 43.1 % (37-47); Hemoglobin 14.2 g/dL (12.0-16.0); Immature Granulocytes # (auto) 0.03 K/uL (0.00-0.02); Immature Granulocytes % (auto) 0.2 %; Lymphocytes # (auto) 1.22 K/uL (1.2-3.4); Lymphocytes % (auto) 8.6 %; Mean Corpuscular Hemoglobin 32.7 pg (25-34); Mean Corpuscular Hgb Conc 32.9 g/dL (32-36); Mean Corpuscular Volume 99.3 fL (80-100); Mean Platelet Volume 9.7 fL (7.4-10.4); Monocytes # (auto) 0.78 K/uL (0.11-0.59); Monocytes % (auto) 5.5 %; Neutrophils # (auto) 12.05 K/uL (1.4-6.5); Neutrophils % (auto) 85.2 %; Platelet Count 296 K/uL (130-400); RDW Standard Deviation 47.5 fL (36.4-46.3); Red Blood Count 4.34 M/uL (4.2-5.4); White Blood Count 14.15 K/uL (4.8-10.8)
[2019-10-01 23:47] LABS: Alanine Aminotransferase 12 U/L (12-78); Albumin Level 4.5 gm/dl (3.4-5.0); Aspartate Aminotransferase 9 U/L (15-37); BUN Creatinine Ratio 33.5 (10-20); Blood Urea Nitrogen 28 mg/dl (7-18); Calcium 9.9 mg/dl (8.5-10.1); Carbon Dioxide 31 mmol/L (21-32); Chloride 100 mmol/L (98-107); Est GFR (African American) 86.4; Est GFR (Non-African American) 74.6; Glucose 111 mg/dl (70-99); Lipase 76 U/L (73-393); Potassium 3.2 mmol/L (3.5-5.1); Sodium 141 mmol/L (136-145)
[2019-10-01 23:50] LABS: Albumin Globulin Ratio 1.3 (0.9-2); Alkaline Phosphatase 73 U/L (45-117); Bilirubin,Total 0.5 mg/dl (0.2-1); Globulin 3.5 gm/dl (2.5-4.0)
[2019-10-01 23:52] LABS: Appearance Urine Turbid (Clear); Bacteria Urine Automated Negative (Negative); Bilirubin Urine Negative (Negative); Blood Urine Negative (Negative); Color Urine Yellow; Glucose Urine UA Negative (Negative); Ketones Urine Trace (Negative); Leukocyte Esterase Urine 2+ (Negative); Nitrite Urine Negative (Negative); Protein Urine Negative (Negative); Specific Gravity Urine 1.024 (1.000-1.030); Urobilinogen Urine Negative (Negative); pH Urine 8.5 (4.5-7.5)
[2019-10-02] MEDS ORDERED: MoRPHine SULFATE 4 MG/ML 1 ML CARP\\VIAL IV STA
--- NOTE | 2019-10-02 00:20 | Emergency Department Note ---
History of Present Illness General Chief complaint: Vomiting Stated complaint: VOMITING, CANCER PATIENT Time Seen by Provider: 10/01/19 22:37 History of Present Illness Maximum Pain Intensity: 10 This is a 68-year-old female presenting to the emergency department for evaluation of abdominal pain, bloating, nausea, and vomiting that has been worsening over the past day. The patient does not report having a fever or chills. She evidently has a vague history of fairly recent cancer diagnosis at [facility]. Evidently she had a mass on her scalp that was removed and sent to pathology which [facility] described as similar a small cell lung cancer, although she does not have any lung findings. Additionally they felt if she had greater than 1 year of untreated small cell lung cancer she likely would have other symptoms or have . She is scheduled for a PET scan as well as ultrasound of her neck at [facility]. The patient had been at her usual state of health until today when her symptoms began. She has had some dysuria symptoms over the past several days, but feels like she has been defecating as normal. She does not have recent travel history, and does not report chest pain, chest tightness, or shortness of breath. She rates her overall discomfort a 10/10. She does not report a history of abdominal surgery. She is not on any treatment for her reported cancer. Home Medications Home Medications Medication Instructions Recorded Confirmed Type amlodipine 5 mg PO QAM 08/07/18 10/02/19 History lisinopril 20 mg PO QAM 08/07/18 10/02/19 History gabapentin 600 mg PO TID 01/31/19 10/02/19 History acetaminophen [Tylenol Extra 1,000 mg PO QID PRN 06/02/19 10/02/19 History Strength] docusate sodium 100 mg PO BID PRN #30 cap 06/04/19 10/02/19 Rx fluticasone propionate 2 sprays [place] DAILY PRN #1 box 06/04/19 10/02/19 Rx ondansetron 4 mg PO Q8H PRN #30 tab 06/29/19 10/02/19 Rx clonazepam 1 mg tablet 0.5 - 1 mg PO DIRECTED tab 07/21/19 10/02/19 History hydralazine 10 mg tablet 10 mg PO TID #90 tab 07/30/19 10/02/19 Rx hydrochlorothiazide 25 mg tablet 25 mg PO DAILY #30 tab 08/05/19 10/02/19 Rx carbidopa 25 mg-levodopa 250 mg 1 tab PO .7 X DAY tab 08/09/19 10/02/19 History tablet duloxetine 30 mg capsule,delayed 30 mg PO DAILY 08/23/19 10/02/19 History release mirtazapine 30 mg tablet 30 mg PO DAILY tab 08/23/19 10/02/19 History oxycodone 5 mg capsule 5 mg PO .COMPLEX cap 08/23/19 10/02/19 History potassium chloride 20 mEq 20 meq PO DAILY tab 08/23/19 10/02/19 History tablet,extended release clonidine HCl 0.1 mg tablet 0.2 mg PO BID #120 tab 08/24/19 10/02/19 Rx morphine 15 mg PO Q6H PRN #10 tab 08/27/19 10/02/19 Rx omeprazole 20 mg tablet,delayed 20 mg PO DAILY #30 tab 09/01/19 10/02/19 Rx release Allergies Allergy/AdvReac Type Severity Reaction Status Date / Time bee venom protein (honey bee) Allergy Intermediate "I PASS Verified 10/02/19 00:14 OUT." nicotine Allergy Intermediate skin Verified 10/02/19 00:14 irritation bupropion Allergy Unknown unknown Verified 10/02/19 00:14 codeine Allergy Unknown unknown - Verified 10/02/19 00:14 TOLERATES PERCOCET Sulfa (Sulfonamide Allergy Unknown CAN'T Verified 10/02/19 00:14 Antibiotics) REMEMBER morphine AdvReac Intermediate CAN Verified 10/02/19 00:14 TOLERATE SMALL DOSES. hydromorphone [From Dilaudid] AdvReac Unknown TOLERATES Verified 10/02/19 00:14 SMALL DOSES ONLY Past Med/Surg History Medical History Allergic rhinitis (Acute) Aneurysm (Chronic) HX OF 15 YEARS AGO. Aneurysm of basilar artery (Acute) Arthritis (Acute) Benign lipomatous tumor (Acute) COPD (chronic obstructive pulmonary disease) (Chronic) Depression (Chronic) Emphysema lung (Chronic) Generalized osteoarthritis of multiple sites (Acute) GERD (gastroesophageal reflux disease) (Chronic) History of anesthesia reaction PT STATES THAT SHE WOKE UP TWICE DURING PREVIOUS COLONOSCOPY AND WAS ADVISED TO ALERT STAFF OF THIS FOR FUTURE PROCEDURES. 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) Occipital neuralgia (Acute) Parkinsons Self-harm Spinal stenosis (Chronic) Stomach ulcer (Acute) Stroke (Acute) Surgical History History of spinal surgery (Chronic) LUMBAR FUSION History of surgery REMOVAL OF RIGHT LABIA FOLLOWING DX OF VULVA CANCER S/P excision of lipoma (Chronic) Status post craniectomy Status post right knee replacement (Chronic) Family History Mother Depression Hypertension Anxiety Sister Depression Hypertension Cerebral aneurysm Anxiety Father Hypertension Myocardial infarction Cardiac disorder Anxiety Other Family history non-contributory Social History Preferred Language: Divehi Communication Ability: Effective Visual Impairment: Limited Hearing Ability: Normal Catering Cook Required: No Beliefs That Will Affect Care: None marital status: / Current Living Situation: Alone Current Living Situation Comment: sister current occupational status: disabled Feels Safe at Home: Yes Safety Concerns: Feels Safe At This Time Smoking Status: Former smoker Tobacco Type: cigarettes ; Cigarettes Per Day: 4 ; Second Hand Exposure: No ; Hx Alcohol Use: No Hx Substance Use: No Review of Systems A total of 10 systems reviewed and were otherwise negative Physical Exam Vital Signs Vital Signs - 24 hr 10/01/19 22:20 10/01/19 23:31 Temperature 36.4 C L Temperature Source Oral Pulse Rate 77 Pulse Rate [Left Finger] 68 Respiratory Rate 16 18 Blood Pressure 138/90 Blood Pressure [Right Arm] 181/99 H Blood Pressure Mean 106 Blood Pressure Mean [Right Arm] 126 Blood Pressure Position [Right Arm] Sitting Pulse Oximetry 99 99 Oxygen Delivery Method Room Air Room Air Sepsis Recent Fever Within 48 Hours No Sepsis New/Unexplained Change in Mental Status No Sepsis Action Taken by Nursing No Action Required VITALS: Vitals are noted on the nurse's note and reviewed by myself. Vital signs stable. GENERAL: Well-developed, well-nourished, white female, who is histrionic on evaluation. HEAD: Normocephalic atraumatic. HEART: Regular rate and rhythm without murmurs gallops or rubs. LUNGS: Clear to auscultation bilaterally without wheezes, rales or rhonchi. No retractions or accessory muscle use. ABDOMEN: Mildly distended abdomen with hypoactive bowel sounds. Mild diffuse tenderness. MUSCULOSKELETAL: No muscle atrophy, erythema, or edema noted. Full range of motion in all extremities. NEURO: Patient was alert and oriented to person place and time. CN II through XII grossly intact. Course Administered Medications Sodium Chloride (Nss 1000ml) 1,000 mls @ 80 mls/hr IV .[id number] DENISA Stop: 11/01/19 02:10 Last Admin: 10/02/19 02:34 Dose: 80 mls/hr Documented by: [id number] Potassium Chloride (K William / Wtr) 10 meq in 100 mls @ 100 mls/hr IV Q1H DENISA Stop: 10/02/19 06:10 Last Admin: 10/02/19 03:57 Dose: 100 mls/hr Documented by: [id number] Infusion: 10/02/19 03:33 Dose: 100 mls/hr Documented by: [id number] Admin: 10/02/19 02:33 Dose: 100 mls/hr Documented by: [id number] Morphine Sulfate (Morphine Sulfate) 4 mg IV Q4H PRN PRN Reason: moderate pain Stop: 10/16/19 02:10 Last Admin: 10/02/19 02:41 Dose: 4 mg Documented by: [id number] Discontinued Medications Sodium Chloride (Nss 1000ml) 1,000 mls @ 999 mls/hr IV .Q1H1M DENISA Stop: 10/01/19 23:45 Last Infusion: 10/02/19 01:06 Dose: 0 mls/hr Documented by: [id number] Admin: 10/01/19 23:30 Dose: 999 mls/hr Documented by: [id number] Lorazepam (Ativan) 0.5 mg in 1 mls @ 1 mls/min IV NOW STA Stop: 10/02/19 00:35 Last Admin: 10/02/19 00:55 Dose: 1 mls/min Documented by: [id number] Piperacillin Sod/Tazobactam (Sod 3.375 gm/ Dextrose) 115 mls @ 230 mls/hr IV ONE ONE; Protocol Stop: 10/02/19 02:40 Last Infusion: 10/02/19 03:12 Dose: 0 mls/hr Documented by: [id number] Admin: 10/02/19 02:33 Dose: 230 mls/hr Documented by: [id number] Lorazepam (Ativan) 1 mg in 2 mls @ 2 mls/min IV NOW STA Stop: 10/02/19 02:56 Last Admin: 10/02/19 03:01 Dose: 2 mls/min Documented by: [id number] Miscellaneous (Patient's Height And/Or Weight Needed) 1 ea N/A Q2H DENISA Stop: 11/01/19 02:29 Last Admin: 10/02/19 02:47 Dose: Not Given Documented by: [id number] Morphine Sulfate (Morphine Sulfate) 4 mg IV NOW STA Stop: 10/01/19 22:45 Last Admin: 10/01/19 23:29 Dose: 4 mg Documented by: [id number] Morphine Sulfate (Morphine Sulfate) 4 mg IV NOW STA Stop: 10/02/19 00:01 Last Admin: 10/02/19 00:03 Dose: 4 mg Documented by: [id number] Ondansetron HCl (Zofran) 4 mg IV NOW STA Stop: 10/01/19 22:45 Last Admin: 10/01/19 23:30 Dose: 4 mg Documented by: [id number] Medical Decision Making Differential Diagnosis Differential diagnosis: Etiologies such as biliary colic, cholecystitis, hepatitis, pancreatitis, cardiac disease, pancreatitis, gastritis, peptic ulcer disease, appendicitis, cystitis, diverticulitis, mesenteric ischemia, inflammatory bowel disease, ileus, bowel obstruction, testicular/adnexal torsion, aortic pathology, shingles, as well as others were considered Laboratory Data Result diagrams: 10/01/19 23:07 10/01/19 23:07 Lab Results 10/01/19 10/01/19 10/01/19 Range/Units 23:07 23:07 23:07 WBC 14.15 H (4.8-10.8) K/uL RBC 4.34 (4.2-5.4) M/uL Hgb 14.2 (12.0-16.0) g/dL Hct 43.1 (37-47) % MCV 99.3 (80-100) fL MCH 32.7 (25-34) pg MCHC 32.9 (32-36) g/dL RDW Std Deviation 47.5 H (36.4-46.3) fL RDW Coeff of Ginger 13.0 (11.5-14.5) % Plt Count 296 (130-400) K/uL MPV 9.7 (7.4-10.4) fL Immature Gran % (Auto) 0.2 % Neut % (Auto) 85.2 % Lymph % (Auto) 8.6 % [place] % (Auto) 5.5 % Eos % (Auto) 0.4 % Baso % (Auto) 0.1 % Immature Gran # (Auto) 0.03 H (0.00-0.02) K/uL Neut # (Auto) 12.05 H (1.4-6.5) K/uL Lymph # (Auto) 1.22 (1.2-3.4) K/uL [place] # (Auto) 0.78 H (0.11-0.59) K/uL Eos # (Auto) 0.05 (0-0.5) K/uL Baso # (Auto) 0.02 (0-0.2) K/uL Sodium 141 (136-145) mmol/L Potassium 3.2 L (3.5-5.1) mmol/L Chloride 100 (98-107) mmol/L Carbon Dioxide 31 (21-32) mmol/L Anion Gap 10.0 (3-11) BUN 28 H (7-18) mg/dl Creatinine 0.82 (0.6-1.2) mg/dl Est Cr Clr Drug Dosing Not Reportable Est GFR ( Amer) 86.4 Est GFR (Non-Af Amer) 74.6 BUN/Creatinine Ratio 33.5 H (10-20) Glucose 111 H (70-99) mg/dl Lactate 1.7 (0.4-2.0) mmol/L Calcium 9.9 (8.5-10.1) mg/dl Total Bilirubin 0.5 (0.2-1) mg/dl AST 9 L (15-37) U/L ALT 12 (12-78) U/L Alkaline Phosphatase 73 (45-117) U/L Total Protein 8.0 (6.4-8.2) gm/dl Albumin 4.5 (3.4-5.0) gm/dl Globulin 3.5 (2.5-4.0) gm/dl Albumin/Globulin Ratio 1.3 (0.9-2) Lipase 76 (73-393) U/L Urine Color Urine Appearance (Clear) Urine pH (4.5-7.5) Ur Specific Stanton (1.000-1.030) Urine Protein (Negative) Urine Glucose (UA) (Negative) Urine Ketones (Negative) Urine Blood (Negative) Urine Nitrite (Negative) Urine Bilirubin (Negative) Urine Urobilinogen (Negative) Ur Leukocyte Esterase (Negative) Urine WBC (Auto) (0-5) /hpf Urine RBC (Auto) (0-4) /hpf U Hyaline Cast (Auto) (0-5) /lpf U Epithel Cells (Auto) (0-5) /lpf Urine Bacteria (Auto) (Negative) 10/01/19 Range/Units 23:34 WBC (4.8-10.8) K/uL RBC (4.2-5.4) M/uL Hgb (12.0-16.0) g/dL Hct (37-47) % MCV (80-100) fL MCH (25-34) pg MCHC (32-36) g/dL RDW Std Deviation (36.4-46.3) fL RDW Coeff of Ginger (11.5-14.5) % Plt Count (130-400) K/uL MPV (7.4-10.4) fL Immature Gran % (Auto) % Neut % (Auto) % Lymph % (Auto) % [place] % (Auto) % Eos % (Auto) % Baso % (Auto) % Immature Gran # (Auto) (0.00-0.02) K/uL Neut # (Auto) (1.4-6.5) K/uL Lymph # (Auto) (1.2-3.4) K/uL [place] # (Auto) (0.11-0.59) K/uL Eos # (Auto) (0-0.5) K/uL Baso # (Auto) (0-0.2) K/uL Sodium (136-145) mmol/L Potassium (3.5-5.1) mmol/L Chloride (98-107) mmol/L Carbon Dioxide (21-32) mmol/L Anion Gap (3-11) BUN (7-18) mg/dl Creatinine (0.6-1.2) mg/dl Est Cr Clr Drug Dosing Est GFR ( Amer) Est GFR (Non-Af Amer) BUN/Creatinine Ratio (10-20) Glucose (70-99) mg/dl Lactate (0.4-2.0) mmol/L Calcium (8.5-10.1) mg/dl Total Bilirubin (0.2-1) mg/dl AST (15-37) U/L ALT (12-78) U/L Alkaline Phosphatase (45-117) U/L Total Protein (6.4-8.2) gm/dl Albumin (3.4-5.0) gm/dl Globulin (2.5-4.0) gm/dl Albumin/Globulin Ratio (0.9-2) Lipase (73-393) U/L Urine Color Yellow Urine Appearance Turbid A (Clear) Urine pH 8.5 H (4.5-7.5) Ur Specific [place] 1.024 (1.000-1.030) Urine Protein Negative (Negative) Urine Glucose (UA) Negative (Negative) Urine Ketones Trace H (Negative) Urine Blood Negative (Negative) Urine Nitrite Negative (Negative) Urine Bilirubin Negative (Negative) Urine Urobilinogen Negative (Negative) Ur Leukocyte Esterase 2+ H (Negative) Urine WBC (Auto) 5-10 H (0-5) /hpf Urine RBC (Auto) 5-10 H (0-4) /hpf U Hyaline Cast (Auto) 1-5 (0-5) /lpf U Epithel Cells (Auto) 10-20 H (0-5) /lpf Urine Bacteria (Auto) Negative (Negative) Imaging Data Radiologist's Impression: Preliminary Findings Only See Final Report For Complete Findings CT ABDOMEN & PELVIS Without Contrast: Multiple loops of mildly dilated small bowel in the left lower abdomen and pelvis with suggestion of a transition point in the pelvis (series 2 image 57) where there is a small segment of small bowel with wall thickening concerning for bowel obstruction. No free air or free fluid. Appendix is not identified. No colonic dilatation. Small hiatal hernia. Expected postoperative changes from L3 S1 posterior lumbar fusion. Nonobstructing stone measuring 2 mm in the mid right kidney. No hydronephrosis. No ureteral or bladder stones. MDM Narrative Physical exam and history were performed. Nursing notes, EMR, and Medication List were personally reviewed. Patient appears to have abdominal pain, nausea, and vomiting bringing her to the ER. The patient is quite histrionic on evaluation. She speaks regularly of her "Terminal Cancer", although we have [facility] oncology notes from less than 2 weeks ago that certainly do not describe her as having a terminal cancer. She does seem uncomfortable with her abdominal examination. IV access was established and labs were obtained. She was hydrated with normal saline. Evidently the patient is on oral morphine at home, but is unable to tolerate p.o. She was given IV morphine and IV Zofran. She was hydrated with normal saline and placed n.p.o. She was sent to CT scan for further evaluation. The patient's blood work is as above and was reviewed. She does have an elevated white blood cell count of 14,000. She does not have a significant anemia. Potassium is slightly low at 3.2. Glucose is 111. Transaminases and lipase are nondiagnostic. Urine may suggest UTI with culture pending. CT scan was reviewed by myself and radiology, and seems to suggest a small bowel obstruction. This would correlate with the patient's discomfort. I did order an NG tube, however the patient flatly refused this, stating "you'll have to knock me out". The patient continued to request pain medication, and she was given an additional dose of morphine. Overall the patient does not appear well for discharge home. The case was discussed with the on-call surgeon, Dr. Garcia, as well as with the on-call hospitalist, Dr. [id number]. Please see the hospitalist dictation for further patient course, plan, and disposition. The chart was completed utilizing [employer] Speech Voice Recognition Software. Grammatical errors, random word insertions, pronoun errors, and incomplete sentences are an occasional consequence of this system due to software limitations, ambient noise, and hardware issues. Any formal questions or concerns about the content, text, or information contained within the body of th is dictation should be directly addressed to the provider for clarification. . Impression & Plan Small bowel obstruction, Abdominal pain, Nausea and vomiting Discharge Plan Visit Data *Final* Discharge Date/Time: 10/02/19 01:53 Chief Complaint: Vomiting Stated Complaint: VOMITING, CANCER PATIENT ED Provider: Ajith Naidu ED Midlevel Provider: Dae Hillman Discharge Problem: Small bowel obstruction, Abdominal pain, Nausea and vomiting Patient Disposition: Admitted As Inpatient Discharge Instructions Interventions: ED Discharge Assessment Last Done: 10/02/19 01:53 Discharge Problem: Abdominal pain Qualifiers: Abdominal location: generalized Qualified Code(s): R10.84 - Generalized abdominal pain Nausea and vomiting Qualifiers: Vomiting type: unspecified Vomiting Intractability: unspecified Qualified Code(s): R11.2 - Nausea with vomiting, unspecified
[2019-10-02] MEDS ORDERED: LORazepam 0.5 MG/1 ML VIAL IV STA (00:34)
--- NOTE | 2019-10-02 01:24 | History & Physical Report ---
Date of Service October 02, 2019 Assessment & Plan (1) Small bowel obstruction: 68yo F PMH HTN, chronic pain, anxiety/depression, admitted for SBO. SBO -NPO -NGT on low, intermittent suction -Surgery consulted, appreciate recs -Covering with zosyn Hypokalemia -Repleted x 40mg K riders -Recheck labs in am HTN -NPO, pt usually on amlodipine 5, clonidine, hydralazine, HCTZ, lisinopril -prn IV lopressor and hydralazine; restart home meds when able -Admit to tele Chronic pain -Pt takes PO morphine and oxycodone at home -IV morphine and dilaudid until PO available Anxiety/depression -Restart home meds when able -prn ativan IV Metastatic cancer/s/p craniectomy -Pain control prn DVTP: lovenox Code: DNR/DNI Dispo: admit to tele (2) Status post craniectomy: (3) Metastatic cancer: (4) Hyperlipidemia: (5) Arthritis: (6) Uncontrolled pain: (7) Hypertension: History of Present Illness Chief Complaint: Nausea/vomiting Primary Care Provider: Yelena Keita MD Patient is a 68yo F significant PMH listed below who presented with a three day h/o nausea/vomiting and associated worsening abdominal distension and severe abdominal pain. She also complains of dysuria x 1 month. In the ER she was found to have a mildly elevated WBC of 14K, hypokalemia of 3.2. CT abdo revealed SBO. Patient clinically with distended abdomen. Given morphine 4mg x 2 in ER as well as 0.5 ativan prior to NGT placement, which patient tolerated well. PMH significant for "terminal" cancer s/p craniectomy (skull/brain mets?) with unknown primary. Pt seeing oncology in [place]. States she has not started any radiation or chemo as she is expected to have special testing with them to determine where the primary source is. Other PMH: anxiety/depression, chronic pain, CVA, HLD, OA, HTN, COPD, brain aneurysm. Allergies Allergy/AdvReac Type Severity Reaction Status Date / Time bee venom protein (honey bee) Allergy Intermediate "I PASS Verified 10/02/19 00:14 OUT." nicotine Allergy Intermediate skin Verified 10/02/19 00:14 irritation bupropion Allergy Unknown unknown Verified 10/02/19 00:14 codeine Allergy Unknown unknown - Verified 10/02/19 00:14 TOLERATES PERCOCET Sulfa (Sulfonamide Allergy Unknown CAN'T Verified 10/02/19 00:14 Antibiotics) REMEMBER morphine AdvReac Intermediate CAN Verified 10/02/19 00:14 TOLERATE SMALL DOSES. hydromorphone [From Dilaudid] AdvReac Unknown TOLERATES Verified 10/02/19 00:14 SMALL DOSES ONLY Home Medications Home Medications Medication Instructions Recorded Confirmed Type amlodipine 5 mg PO QAM 08/07/18 10/02/19 History lisinopril 20 mg PO QAM 08/07/18 10/02/19 History gabapentin 600 mg PO TID 01/31/19 10/02/19 History acetaminophen [Tylenol Extra 1,000 mg PO QID PRN 06/02/19 10/02/19 History Strength] docusate sodium 100 mg PO BID PRN #30 cap 06/04/19 10/02/19 Rx fluticasone propionate 2 sprays [place] DAILY PRN #1 box 06/04/19 10/02/19 Rx ondansetron 4 mg PO Q8H PRN #30 tab 06/29/19 10/02/19 Rx clonazepam 1 mg tablet 0.5 - 1 mg PO DIRECTED tab 07/21/19 10/02/19 History hydralazine 10 mg tablet 10 mg PO TID #90 tab 07/30/19 10/02/19 Rx hydrochlorothiazide 25 mg tablet 25 mg PO DAILY #30 tab 08/05/19 10/02/19 Rx carbidopa 25 mg-levodopa 250 mg 1 tab PO .7 X DAY tab 08/09/19 10/02/19 History tablet duloxetine 30 mg capsule,delayed 30 mg PO DAILY 08/23/19 10/02/19 History release mirtazapine 30 mg tablet 30 mg PO DAILY tab 08/23/19 10/02/19 History oxycodone 5 mg capsule 5 mg PO .COMPLEX cap 08/23/19 10/02/19 History potassium chloride 20 mEq 20 meq PO DAILY tab 08/23/19 10/02/19 History tablet,extended release clonidine HCl 0.1 mg tablet 0.2 mg PO BID #120 tab 08/24/19 10/02/19 Rx morphine 15 mg PO Q6H PRN #10 tab 08/27/19 10/02/19 Rx omeprazole 20 mg tablet,delayed 20 mg PO DAILY #30 tab 09/01/19 10/02/19 Rx release Past Med/Surg History Medical History Allergic rhinitis (Acute) Aneurysm (Chronic) HX OF 15 YEARS AGO. Aneurysm of basilar artery (Acute) Arthritis (Acute) Benign lipomatous tumor (Acute) COPD (chronic obstructive pulmonary disease) (Chronic) Depression (Chronic) Emphysema lung (Chronic) Generalized osteoarthritis of multiple sites (Acute) GERD (gastroesophageal reflux disease) (Chronic) History of anesthesia reaction PT STATES THAT SHE WOKE UP TWICE DURING PREVIOUS COLONOSCOPY AND WAS ADVISED TO ALERT STAFF OF THIS FOR FUTURE PROCEDURES. 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) Occipital neuralgia (Acute) Parkinsons Self-harm Spinal stenosis (Chronic) Stomach ulcer (Acute) Stroke (Acute) Surgical History History of spinal surgery (Chronic) LUMBAR FUSION History of surgery REMOVAL OF RIGHT LABIA FOLLOWING DX OF VULVA CANCER S/P excision of lipoma (Chronic) Status post craniectomy Status post right knee replacement (Chronic) Family History Mother Depression Hypertension Anxiety Sister Depression Hypertension Cerebral aneurysm Anxiety Father Hypertension Myocardial infarction Cardiac disorder Anxiety Other Family history non-contributory Social History Preferred Language: Portuguese Communication Ability: Effective Visual Impairment: Limited Hearing Ability: Normal Communications Billing Analyst Required: No Beliefs That Will Affect Care: None marital status: / Current Living Situation: Alone Current Living Situation Comment: sister current occupational status: disabled Feels Safe at Home: Yes Safety Concerns: Feels Safe At This Time Smoking Status: Former smoker Tobacco Type: cigarettes ; Cigarettes Per Day: 4 ; Second Hand Exposure: No ; Hx Alcohol Use: No Hx Substance Use: No Review of Systems Review of Systems: All systems reviewed & are unremarkable except as noted in HPI & below Constitutional: + anorexia Respiratory: + cough Cardiovascular: no chest pain and no edema Gastrointestinal: + abdominal pain, + heartburn, + nausea and + vomiting Genitourinary: + dysuria Musculoskeletal: + back pain and + joint pain Psychiatric: + depression and + anhedonia Physical Exam Constitutional: WD/WN, vitals as above Eyes: PERRL, conjunctivae normal, anicteric sclerae ENMT: external ear and nose normal, oropharynx normal Respiratory: normal respiratory effort, lungs clear to auscultation Cardiovascular: RRR, no murmur, no edema Gastrointestinal (Abdomen): Inspection/Auscultation: + abdomen distended; + abnormal bowel sounds Percussion/Palpation: + abdomen tender and + guarding Musculoskeletal: no cyanosis or clubbing, extremities motor strength 5/5 Skin: no rashes, warm and dry Neurologic: PERRL, EOMI, accommodation nl, no face palsy, no dysarthria Psychiatric: Orientation: alert and oriented x 3 Affect: + anxious affect Results & Data Vital Signs (Past 12 Hours) Vital Signs Temp Pulse Pulse Resp BP BP Pulse Ox 10/01/19 23:31 68 18 181/99 H 99 10/01/19 22:20 97.5 F L 77 16 138/90 99 Laboratory Results 10/01/19 10/01/19 10/01/19 Range/Units 23:34 23:07 23:07 WBC (4.8-10.8) K/uL RBC (4.2-5.4) M/uL Hgb (12.0-16.0) g/dL Hct (37-47) % MCV (80-100) fL MCH (25-34) pg MCHC (32-36) g/dL RDW Std Deviation (36.4-46.3) fL RDW Coeff of Ginger (11.5-14.5) % Plt Count (130-400) K/uL MPV (7.4-10.4) fL Immature Gran % (Auto) % Neut % (Auto) % Lymph % (Auto) % Woodson % (Auto) % Eos % (Auto) % Baso % (Auto) % Immature Gran # (Auto) (0.00-0.02) K/uL Neut # (Auto) (1.4-6.5) K/uL Lymph # (Auto) (1.2-3.4) K/uL Woodson # (Auto) (0.11-0.59) K/uL Eos # (Auto) (0-0.5) K/uL Baso # (Auto) (0-0.2) K/uL Sodium 141 (136-145) mmol/L Potassium 3.2 L (3.5-5.1) mmol/L Chloride 100 (98-107) mmol/L Carbon Dioxide 31 (21-32) mmol/L Anion Gap 10.0 (3-11) BUN 28 H (7-18) mg/dl Creatinine 0.82 (0.6-1.2) mg/dl Est Cr Clr Drug Dosing Not Reportable Est GFR ( Amer) 86.4 Est GFR (Non-Af Amer) 74.6 BUN/Creatinine Ratio 33.5 H (10-20) Glucose 111 H (70-99) mg/dl Lactate 1.7 (0.4-2.0) mmol/L Calcium 9.9 (8.5-10.1) mg/dl Total Bilirubin 0.5 (0.2-1) mg/dl AST 9 L (15-37) U/L ALT 12 (12-78) U/L Alkaline Phosphatase 73 (45-117) U/L Total Protein 8.0 (6.4-8.2) gm/dl Albumin 4.5 (3.4-5.0) gm/dl Globulin 3.5 (2.5-4.0) gm/dl Albumin/Globulin Ratio 1.3 (0.9-2) Lipase 76 (73-393) U/L Urine Color Yellow Urine Appearance Turbid A (Clear) Urine pH 8.5 H (4.5-7.5) Ur Specific Irving 1.024 (1.000-1.030) Urine Protein Negative (Negative) Urine Glucose (UA) Negative (Negative) Urine Ketones Trace H (Negative) Urine Blood Negative (Negative) Urine Nitrite Negative (Negative) Urine Bilirubin Negative (Negative) Urine Urobilinogen Negative (Negative) Ur Leukocyte Esterase 2+ H (Negative) Urine WBC (Auto) 5-10 H (0-5) /hpf Urine RBC (Auto) 5-10 H (0-4) /hpf U Hyaline Cast (Auto) 1-5 (0-5) /lpf U Epithel Cells (Auto) 10-20 H (0-5) /lpf Urine Bacteria (Auto) Negative (Negative) 10/01/19 Range/Units 23:07 WBC 14.15 H (4.8-10.8) K/uL RBC 4.34 (4.2-5.4) M/uL Hgb 14.2 (12.0-16.0) g/dL Hct 43.1 (37-47) % MCV 99.3 (80-100) fL MCH 32.7 (25-34) pg MCHC 32.9 (32-36) g/dL RDW Std Deviation 47.5 H (36.4-46.3) fL RDW Coeff of Ginger 13.0 (11.5-14.5) % Plt Count 296 (130-400) K/uL MPV 9.7 (7.4-10.4) fL Immature Gran % (Auto) 0.2 % Neut % (Auto) 85.2 % Lymph % (Auto) 8.6 % Woodson % (Auto) 5.5 % Eos % (Auto) 0.4 % Baso % (Auto) 0.1 % Immature Gran # (Auto) 0.03 H (0.00-0.02) K/uL Neut # (Auto) 12.05 H (1.4-6.5) K/uL Lymph # (Auto) 1.22 (1.2-3.4) K/uL Woodson # (Auto) 0.78 H (0.11-0.59) K/uL Eos # (Auto) 0.05 (0-0.5) K/uL Baso # (Auto) 0.02 (0-0.2) K/uL Sodium (136-145) mmol/L Potassium (3.5-5.1) mmol/L Chloride (98-107) mmol/L Carbon Dioxide (21-32) mmol/L Anion Gap (3-11) BUN (7-18) mg/dl Creatinine (0.6-1.2) mg/dl Est Cr Clr Drug Dosing Est GFR ( Amer) Est GFR (Non-Af Amer) BUN/Creatinine Ratio (10-20) Glucose (70-99) mg/dl Lactate (0.4-2.0) mmol/L Calcium (8.5-10.1) mg/dl Total Bilirubin (0.2-1) mg/dl AST (15-37) U/L ALT (12-78) U/L Alkaline Phosphatase (45-117) U/L Total Protein (6.4-8.2) gm/dl Albumin (3.4-5.0) gm/dl Globulin (2.5-4.0) gm/dl Albumin/Globulin Ratio (0.9-2) Lipase (73-393) U/L Urine Color Urine Appearance (Clear) Urine pH (4.5-7.5) Ur Specific Irving (1.000-1.030) Urine Protein (Negative) Urine Glucose (UA) (Negative) Urine Ketones (Negative) Urine Blood (Negative) Urine Nitrite (Negative) Urine Bilirubin (Negative) Urine Urobilinogen (Negative) Ur Leukocyte Esterase (Negative) Urine WBC (Auto) (0-5) /hpf Urine RBC (Auto) (0-4) /hpf U Hyaline Cast (Auto) (0-5) /lpf U Epithel Cells (Auto) (0-5) /lpf Urine Bacteria (Auto) (Negative) Code Status & VTE Plan Code Status DNR/I VTE Prophylaxis Plan VTE Prophylaxis will be ordered: Yes Supervising Physician Co-Signing Physician Notes Attending addendum: I have physically seen this patient, have supervised the medical residents activities, and agree with the H&P unless as otherwise noted. Assessment and Plan: Small bowel obstruction- Patient began to have obviously progressive distention while in the ED. After discussion she agreed to have placement of NG tube to low intermittent suction. NPO IV fluids. Zosyn 4.5 g IV every 8 hours. Famotidine 20 mg IV every 12 hours. Zofran 4 mg IV every 6 hours as needed PRN IV Lopressor and hydralazine. Follow on telemetry for administration of these medications. Consult general surgery. Remainder of orders and notations as noted. Resident Activity Tracking Resident Involvement: Resident Care Provided Care Provided: Adult Hospital Medicine (1) Hypertension Hypertension type: essential hypertension Qualified Code(s): I10 - Essential (primary) hypertension
[2019-10-02] MEDS ORDERED: METOPROLOL TARTRATE 1 MG/ML VIAL IV PRN (02:11)
[2019-10-02] MEDS ORDERED: HydrALAZINE HCL 20 MG/ML VIAL IV PRN (02:11)
[2019-10-02] MEDS ORDERED: PIPERACILL/TAZOBAC CONSULT ACTIVE PRN (02:11)
[2019-10-02] MEDS ORDERED: PIPERACILLIN/TAZOBACTAM 3.375 GM in DEXTROSE 5% 100 ML IV ONE (02:11)
[2019-10-02] MEDS ORDERED: PATIENT'S HEIGHT AND/OR WEIGHT NEEDED SCH (02:30)
[2019-10-02] MEDS: POTASSIUM CHLORIDE / WTR 10 MEQ/100 ML PLCT IV SCH ×4 (02:33→06:14)
[2019-10-02] MEDS: SODIUM CHLORIDE 0.9% 1000ML 1,000 ML IV SCH ×2 (02:34→15:58)
[2019-10-02] MEDS: MoRPHine SULFATE 4 MG/ML 1 ML CARP\\VIAL IV PRN ×5 (02:41→20:17)
[2019-10-02] MEDS ORDERED: LORazepam 1 MG/2 ML VIAL IV STA (02:55)
[2019-10-02 07:33] LABS: Basophils # (auto) 0.02 K/uL (0-0.2); Basophils % (auto) 0.2 %; Eosinophils # (auto) 0.04 K/uL (0-0.5); Eosinophils % (auto) 0.4 %; Hematocrit (blood only) 41.7 % (37-47); Hemoglobin 13.5 g/dL (12.0-16.0); Immature Granulocytes # (auto) 0.02 K/uL (0.00-0.02); Immature Granulocytes % (auto) 0.2 %; Lymphocytes # (auto) 2.16 K/uL (1.2-3.4); Lymphocytes % (auto) 20.8 %; Mean Corpuscular Hemoglobin 32.2 pg (25-34); Mean Corpuscular Hgb Conc 32.4 g/dL (32-36); Mean Corpuscular Volume 99.5 fL (80-100); Mean Platelet Volume 9.3 fL (7.4-10.4); Monocytes # (auto) 0.87 K/uL (0.11-0.59); Monocytes % (auto) 8.4 %; Neutrophils # (auto) 7.28 K/uL (1.4-6.5); Platelet Count 280 K/uL (130-400); RDW Coefficient of Variation 13.2 % (11.5-14.5); RDW Standard Deviation 47.8 fL (36.4-46.3); Red Blood Count 4.19 M/uL (4.2-5.4); White Blood Count 10.39 K/uL (4.8-10.8)
[2019-10-02] MEDS: ENOXAPARIN INJ 40 MG/0.4 ML SYR SQ SCH (07:40)
[2019-10-02] MEDS: CHLORASEPTIC 1.4% SOLN 180 ML BTL MT PRN ×2 (07:41→12:54)
[2019-10-02] MEDS: PIPERACILLIN/TAZOBACTAM 3.375 GM in DEXTROSE 5% 100 ML IV SCH ×2 (07:46→16:02)
[2019-10-02] MEDS: HYDROmorphone INJ 0.5 MG/0.5 ML SYR IV PRN (07:47)
--- NOTE | 2019-10-02 08:03 | CT Scan Report ---
ABDOMEN AND PELVIS CT WITHOUT CONTRAST CT DOSE: 483.24 mGy.cm HISTORY: Generalized abdominal pain. Nausea. Vomiting. TECHNIQUE: Multiaxial CT images of the abdomen and pelvis were performed without contrast. A dose lo wering technique was utilized adhering to the principles of ALARA. COMPARISON STUDY: Abdomen and pelvis CT 08/27/2019. FINDINGS: The lung bases are clear. No pneumoperitoneum. No pneumatosis. Posterior decompression fusi on from L3 through S1. No fractures within the visualized osseous structures. The unenhanced liver, s pleen, gallbladder, pancreas, left kidney are unremarkable. No hydronephrosis. There is a punctate st one within the right kidney. No retroperitoneal lymphadenopathy. Normal adrenal glands. No retroperit palmer lymphadenopathy. Dilated loops of fluid-filled small bowel seen within the mid to lower abdomen mild mesenteric edema within the left lower quadrant adjacent to the distended loops of small bowel. Transition point likely seen within the deep pelvis on image 278. Therefore, this is consistent with a small bowel obstruction. Normal bladder. The uterus is surgically absent. Colonic diverticulosis. IMPRESSION: 1. Small bowel obstruction with the transition point located within the deep pelvis. 2. Right-sided nephrolithiasis. No hydronephrosis. 3. Postoperative changes as described above. Electronically signed by: Fam Maldonado M.D. 10/02/2019 8:02 AM
[2019-10-02 08:06] LABS: Albumin Level 3.8 gm/dl (3.4-5.0); BUN Creatinine Ratio 32.4 (10-20); Calcium 8.8 mg/dl (8.5-10.1); Creatinine Clr Calc Pharmacy 89.4 ml/min; Est GFR (African American) 107.8; Potassium 4.1 mmol/L (3.5-5.1)
[2019-10-02 08:10] LABS: Albumin Globulin Ratio 1.2 (0.9-2); Bilirubin,Total 0.5 mg/dl (0.2-1); Globulin 3.2 gm/dl (2.5-4.0)
[2019-10-02] MEDS ORDERED: LIDOCAINE 4% INH SOLN 4 ML BTL NAE ONE (08:39)
--- NOTE | 2019-10-02 10:20 | Surgery Consultation ---
Date of Consultation October 02, 2019 Assessment & Plan (1) Small bowel obstruction: 68 yr old woman with first episode of small bowel obstruction likely related to adhesions from prior appendectomy, although abdominal malignancy cannot be ruled out completely given she is in midst of w/u for metastatic cancer to her brain with unknown source. No clinical signs of bowel ischemia. Agree with trial of conservative management with bowel rest, ng decompression. Explained that obstructions can sometimes take 48-72 hrs to start to resolve. If no improvement, discussed possibility of exploratory laparotomy and lysis of adhesions. Present on Admission?: Yes (2) Status post craniectomy: for metastatic cancer. Has f/u scheduled with oncologist in [place]. Present on Admission?: Yes History of Present Illness Reason for Consultation: small bowel obstruction Requesting Physician: Dr. Robert Attending Physician: Dejon Robert MD History of Present Illness 68 yr old woman s/p craniectomy for metastatic cancer of unknown primary who presents with abdominal pain, crampy, generalized, moderate - severe intensity going on for the past 24 hrs. 2 days ago, her abdomen was flat, bowels were working. Yesterday, started to feel more bloated initially, pain started and then developed nausea and vomiting. No flatus or bowel movement. Never had similar symptoms in the past. Came to the ER and found to have small bowel obstruction. Still feels very bloated. NG tube is bothering the back of her throat. Has a history of prior open appendectomy many years ago. She is on home narcotics for chronic pain. Allergies Allergy/AdvReac Type Severity Reaction Status Date / Time bee venom protein (honey bee) Allergy Intermediate "I PASS Verified 10/02/19 00:14 OUT." nicotine Allergy Intermediate skin Verified 10/02/19 00:14 irritation bupropion Allergy Unknown unknown Verified 10/02/19 00:14 codeine Allergy Unknown unknown - Verified 10/02/19 00:14 TOLERATES PERCOCET Sulfa (Sulfonamide Allergy Unknown CAN'T Verified 10/02/19 00:14 Antibiotics) REMEMBER morphine AdvReac Intermediate CAN Verified 10/02/19 00:14 TOLERATE SMALL DOSES. hydromorphone [From Dilaudid] AdvReac Unknown TOLERATES Verified 10/02/19 00:14 SMALL DOSES ONLY Home Medications Home Medications Medication Instructions Recorded Confirmed Type amlodipine 5 mg PO QAM 08/07/18 10/02/19 History lisinopril 20 mg PO QAM 08/07/18 10/02/19 History gabapentin 600 mg PO TID 01/31/19 10/02/19 History acetaminophen [Tylenol Extra 1,000 mg PO QID PRN 06/02/19 10/02/19 History Strength] docusate sodium 100 mg PO BID PRN #30 cap 06/04/19 10/02/19 Rx fluticasone propionate 2 sprays [place] DAILY PRN #1 box 06/04/19 10/02/19 Rx ondansetron 4 mg PO Q8H PRN #30 tab 06/29/19 10/02/19 Rx clonazepam 1 mg tablet 0.5 - 1 mg PO DIRECTED tab 07/21/19 10/02/19 History hydralazine 10 mg tablet 10 mg PO TID #90 tab 07/30/19 10/02/19 Rx hydrochlorothiazide 25 mg tablet 25 mg PO DAILY #30 tab 08/05/19 10/02/19 Rx carbidopa 25 mg-levodopa 250 mg 1 tab PO .7 X DAY tab 08/09/19 10/02/19 History tablet duloxetine 30 mg capsule,delayed 30 mg PO DAILY 08/23/19 10/02/19 History release mirtazapine 30 mg tablet 30 mg PO DAILY tab 08/23/19 10/02/19 History oxycodone 5 mg capsule 5 mg PO .COMPLEX cap 08/23/19 10/02/19 History potassium chloride 20 mEq 20 meq PO DAILY tab 08/23/19 10/02/19 History tablet,extended release clonidine HCl 0.1 mg tablet 0.2 mg PO BID #120 tab 08/24/19 10/02/19 Rx morphine 15 mg PO Q6H PRN #10 tab 08/27/19 10/02/19 Rx omeprazole 20 mg tablet,delayed 20 mg PO DAILY #30 tab 09/01/19 10/02/19 Rx release Patient History Medical History Allergic rhinitis (Acute) Aneurysm (Chronic) HX OF 15 YEARS AGO. Aneurysm of basilar artery (Acute) Arthritis (Acute) Benign lipomatous tumor (Acute) COPD (chronic obstructive pulmonary disease) (Chronic) Depression (Chronic) Emphysema lung (Chronic) Generalized osteoarthritis of multiple sites (Acute) GERD (gastroesophageal reflux disease) (Chronic) History of anesthesia reaction PT STATES THAT SHE WOKE UP TWICE DURING PREVIOUS COLONOSCOPY AND WAS ADVISED TO ALERT STAFF OF THIS FOR FUTURE PROCEDURES. 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) Occipital neuralgia (Acute) Parkinsons Self-harm Spinal stenosis (Chronic) Stomach ulcer (Acute) Stroke (Acute) Surgical History History of spinal surgery (Chronic) LUMBAR FUSION History of surgery REMOVAL OF RIGHT LABIA FOLLOWING DX OF VULVA CANCER S/P excision of lipoma (Chronic) Status post craniectomy Status post right knee replacement (Chronic) Family History Mother Depression Hypertension Anxiety Sister Depression Hypertension Cerebral aneurysm Anxiety Father Hypertension Myocardial infarction Cardiac disorder Anxiety Other Family history non-contributory Social History Preferred Language: Turkmen Communication Ability: Effective Visual Impairment: Limited Hearing Ability: Normal Remote Sensing Scientist Required: No Beliefs That Will Affect Care: None marital status: / Current Living Situation: Alone Current Living Situation Comment: sister current occupational status: disabled Feels Safe at Home: Yes Safety Concerns: Feels Safe At This Time Smoking Status: Former smoker Tobacco Type: cigarettes ; Cigarettes Per Day: 4 ; Second Hand Exposure: No ; Hx Alcohol Use: No Hx Substance Use: No Review of Systems Constitutional: + fatigue; no fever and no chills Respiratory: no problem reported Cardiovascular: no problem reported Gastrointestinal: as per Subjective / HPI Genitourinary: no problem reported Neurologic: s/p recent craniectomy Physical Exam Constitutional: average body habitus; no acute distress Eyes: + anicteric sclerae Neck: normal visual inspection and trachea midline Respiratory: normal respiratory effort, lungs clear to auscultation Cardiovascular: RRR, no murmur, no edema Gastrointestinal (Abdomen): Inspection/Auscultation: + abdomen distended (markedly) Percussion/Palpation: abdomen soft; abdomen nontender, no guarding, no hernia and no abdominal mass hypoactive bowel tones, well healed right paramedian incision Neurologic: moves all extremities; no focal motor deficits Psychiatric: Orientation: alert and oriented x 3 Results & Data Vital Signs (Past 12 Hours) Vital Signs Temp Pulse Pulse Pulse Resp BP BP 10/02/19 09:23 100 H 10/02/19 07:30 36.5 C 85 20 135/85 10/02/19 04:46 100 H 148/61 H 10/02/19 02:05 36.7 C 110 H 18 161/105 H 10/01/19 23:31 68 18 181/99 H 10/01/19 22:20 36.4 C L 77 16 138/90 Pulse Ox 10/02/19 09:23 10/02/19 07:30 92 10/02/19 04:46 10/02/19 02:05 95 10/01/19 23:31 99 10/01/19 22:20 99 230 ngt recorded but about 1 L in canister now 225 urine output Laboratory Results WBC ct normal today (was 14 on admit -down to 10.39 now) lactate normal on admit Diagnostic Findings CT abd/ pelvis FINDINGS: The lung bases are clear. No pneumoperitoneum. No pneumatosis. Posterior decompression fusion from L3 through S1. No fractures within the visualized osseous structures. The unenhanced liver, spleen, gallbladder, pancreas, left kidney are unremarkable. No hydronephrosis. There is a punctate stone within the right kidney. No retroperitoneal lymphadenopathy. Normal adrenal glands. No retroperitoneal lymphadenopathy. Dilated loops of fluid- filled small bowel seen within the mid to lower abdomen mild mesenteric edema within the left lower quadrant adjacent to the distended loops of small bowel. Transition point likely seen within the deep pelvis on image 278. Therefore, this is consistent with a small bowel obstruction. Normal bladder. The uterus is surgically absent. Colonic diverticulosis. IMPRESSION: 1. Small bowel obstruction with the transition point located within the deep pelvis. 2. Right-sided nephrolithiasis. No hydronephrosis. 3. Postoperative changes as described above.
[2019-10-02 17:39] LABS: Basophils # (auto) 0.01 K/uL (0-0.2); Basophils % (auto) 0.1 %; Eosinophils # (auto) 0.04 K/uL (0-0.5); Eosinophils % (auto) 0.3 %; Hematocrit (blood only) 40.5 % (37-47); Hemoglobin 12.9 g/dL (12.0-16.0); Immature Granulocytes # (auto) 0.02 K/uL (0.00-0.02); Immature Granulocytes % (auto) 0.2 %; Lymphocytes % (auto) 11.3 %; Mean Corpuscular Hemoglobin 32.4 pg (25-34); Mean Corpuscular Volume 101.8 fL (80-100); Mean Platelet Volume 9.2 fL (7.4-10.4); Monocytes % (auto) 8.7 %; Neutrophils # (auto) 9.11 K/uL (1.4-6.5); Neutrophils % (auto) 79.4 %; Platelet Count 264 K/uL (130-400); RDW Coefficient of Variation 13.3 % (11.5-14.5); RDW Standard Deviation 50.1 fL (36.4-46.3); Red Blood Count 3.98 M/uL (4.2-5.4); White Blood Count 11.48 K/uL (4.8-10.8)
[2019-10-02 17:43] LABS: Mean Corpuscular Hgb Conc 31.9 g/dL (32-36)
[2019-10-02 18:00] LABS: Albumin Level 3.8 gm/dl (3.4-5.0); Calcium 8.8 mg/dl (8.5-10.1); Creatinine Clr Calc Pharmacy 90.8 ml/min; Est GFR (African American) 108.3; Est GFR (Non-African American) 93.5; Potassium 3.6 mmol/L (3.5-5.1)
[2019-10-02 18:03] LABS: Albumin Globulin Ratio 1.3 (0.9-2); Bilirubin,Total 0.7 mg/dl (0.2-1); Globulin 2.9 gm/dl (2.5-4.0); Phosphorus 4.3 mg/dl (2.5-4.9); Total Protein 6.7 gm/dl (6.4-8.2)
[2019-10-02 18:06] LABS: RBC Morphology Unremarkable
--- NOTE | 2019-10-02 23:41 | Hospitalist Progress Note ---
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 Raises possibility of neuroendocrine tumor causing bowel obstruction. Discussed with Dr Garcia and plan remains same for conservative management at present. Discussed with Dr Jernigan - no further imaging/labs warranted at this stage. (3) Restless leg syndrome: Unclear history from prior notes of Parkinson's/restless leg syndrome. Large amount of Sinemet for restless leg syndrome. No Neupro available from pharmacy for replacement. Will continue to monitor for overt signs of Mela on's off Sinemet. (4) DVT prophylaxis: Lovenox 40mg daily SQ Results & Data Vital Signs (Past 12 Hours) Vital Signs Temp Pulse Pulse Resp BP Pulse Ox 10/02/19 20:12 98.4 F 99 H 22 137/87 91 10/02/19 17:31 82 10/02/19 15:30 97.7 F 83 19 149/81 H 95 PG Care Time/CCT Total # of Minutes Spent Total Time Spent with Patient: Total time spent is greater than 50% in coordination of care (as documented) at patient's floor/unit and/or counseling patient:
[2019-10-02] MEDS ORDERED: DiphenhydrAMINE HCL 50 MG/ML VIAL IV STA (23:58)
[2019-10-03] MEDS ORDERED: DiphenhydrAMINE HCL 50 MG/ML VIAL ONE ×2 (00:07→08:59)
--- NOTE | 2019-10-03 01:02 | Billing Data ---
Coding Level of Care Code 71871 Initial Inpt Care Lvl 3
[2019-10-03] MEDS: PIPERACILLIN/TAZOBACTAM 3.375 GM in DEXTROSE 5% 100 ML IV SCH ×3 (01:29→16:43)
[2019-10-03] MEDS ORDERED: NSS + 20MEQ KCL 20 MEQ/1,000 ML BAG IV SCH (03:00)
[2019-10-03] MEDS: CHLORASEPTIC 1.4% SOLN 180 ML BTL MT PRN ×2 (04:00→17:49)
[2019-10-03 06:48] LABS: Basophils # (auto) 0.01 K/uL (0-0.2); Basophils % (auto) 0.2 %; Eosinophils # (auto) 0.11 K/uL (0-0.5); Eosinophils % (auto) 1.8 %; Hematocrit (blood only) 36.2 % (37-47); Hemoglobin 11.5 g/dL (12.0-16.0); Immature Granulocytes # (auto) 0.01 K/uL (0.00-0.02); Immature Granulocytes % (auto) 0.2 %; Lymphocytes # (auto) 1.24 K/uL (1.2-3.4); Lymphocytes % (auto) 20.8 %; Mean Corpuscular Hemoglobin 31.9 pg (25-34); Mean Corpuscular Hgb Conc 31.8 g/dL (32-36); Mean Corpuscular Volume 100.6 fL (80-100); Monocytes # (auto) 0.49 K/uL (0.11-0.59); Monocytes % (auto) 8.2 %; Neutrophils # (auto) 4.11 K/uL (1.4-6.5); Neutrophils % (auto) 68.8 %; Platelet Count 199 K/uL (130-400); RDW Standard Deviation 47.5 fL (36.4-46.3); White Blood Count 5.97 K/uL (4.8-10.8)
[2019-10-03 07:17] LABS: Albumin Level 3.4 gm/dl (3.4-5.0); BUN Creatinine Ratio 31.6 (10-20); Calcium 8.6 mg/dl (8.5-10.1); Creatinine Clr Calc Pharmacy 114.4 ml/min; Est GFR (African American) 116.9; Est GFR (Non-African American) 100.9; Magnesium 1.9 mg/dl (1.8-2.4); Potassium 3.4 mmol/L (3.5-5.1)
--- NOTE | 2019-10-03 07:18 | Anesthesiology Consultation ---
Date of Service October 03, 2019 Assessment & Plan Chart Review Chart Review: Acceptable Risk for Surgery and Patient NOT seen in Pre Admission Testing Consults Requested none ASA ASA4 Proposed Anesthesia Anesthesia Type: General Anesthesia Line Insertion: Arterial line History Surgery Operation Date: 10/03/19 08:30 Proposed Procedures p Exploratory Laparotomy - Rajwinder Garcia MD Height/Weight Height: 5 ft 6 in Weight: 74.8 kg Allergies Allergy/AdvReac Type Severity Reaction Status Date / Time bee venom protein (honey bee) Allergy Intermediate "I PASS Verified 10/02/19 00:14 OUT." nicotine Allergy Intermediate skin Verified 10/02/19 00:14 irritation bupropion Allergy Unknown unknown Verified 10/02/19 00:14 codeine Allergy Unknown unknown - Verified 10/02/19 00:14 TOLERATES PERCOCET Sulfa (Sulfonamide Allergy Unknown CAN'T Verified 10/02/19 00:14 Antibiotics) REMEMBER morphine AdvReac Intermediate CAN Verified 10/02/19 00:14 TOLERATE SMALL DOSES. hydromorphone [From Dilaudid] AdvReac Unknown TOLERATES Verified 10/02/19 00:14 SMALL DOSES ONLY Medications Home Medications Medication Instructions Recorded Confirmed Last Taken amlodipine 5 mg PO QAM 08/07/18 10/02/19 10/01/19 lisinopril 20 mg PO QAM 08/07/18 10/02/19 10/01/19 gabapentin 600 mg PO TID 01/31/19 10/02/19 10/01/19 08:00 acetaminophen [Tylenol Extra 1,000 mg PO QID PRN 06/02/19 10/02/19 Unknown Strength] docusate sodium 100 mg PO BID PRN #30 cap 06/04/19 10/02/19 Unknown fluticasone propionate 2 sprays [place] DAILY PRN #1 box 06/04/19 10/02/19 Unknown ondansetron 4 mg PO Q8H PRN #30 tab 06/29/19 10/02/19 Unknown clonazepam 1 mg tablet 0.5 - 1 mg PO DIRECTED tab 07/21/19 10/02/19 Unknown hydralazine 10 mg tablet 10 mg PO TID #90 tab 07/30/19 10/02/19 10/01/19 08:00 hydrochlorothiazide 25 mg tablet 25 mg PO DAILY #30 tab 08/05/19 10/02/1910/01/19 carbidopa 25 mg-levodopa 250 mg 1 tab PO .7 X DAY tab 08/09/19 10/02/19 10/01/19 08:00 tablet duloxetine 30 mg capsule,delayed 30 mg PO DAILY 08/23/19 10/02/19 10/01/19 release mirtazapine 30 mg tablet 30 mg PO DAILY tab 08/23/19 10/02/19 10/01/19 oxycodone 5 mg capsule 5 mg PO .COMPLEX cap 08/23/19 10/02/19 Unknown potassium chloride 20 mEq 20 meq PO DAILY tab 08/23/19 10/02/19 10/01/19 tablet,extended release clonidine HCl 0.1 mg tablet 0.2 mg PO BID #120 tab 08/24/19 10/02/19 10/01/19 08:00 morphine 15 mg PO Q6H PRN #10 tab 08/27/19 10/02/19 Unknown omeprazole 20 mg tablet,delayed 20 mg PO DAILY #30 tab 09/01/19 10/02/19 10/01/19 release Active Medications Generic Name Dose Route Start Last Admin Trade Name Freq PRN Reason Stop Dose Admin Enoxaparin Sodium 40 mg 10/02/19 09:00 10/02/19 07:40 Lovenox SQ 11/01/19 08:59 40 mg Q24H DENISA Administration Hydromorphone HCl 0.5 mg 10/02/19 02:11 10/02/19 07:47 Dilaudid IV 10/16/19 02:10 0.5 mg Q4H PRN Administration Severe Pain Piperacillin Sod/Tazobactam 115 mls @ 28.75 mls/hr 10/02/19 08:00 10/03/19 05:39 Sod 3.375 gm/ Dextrose IV 10/12/19 07:59 Infused Q8H DENISA Infusion Protocol Potassium Chloride/Sodium Chloride 20 meq in 1,000 mls @ 125 mls/hr 10/03/19 03:00 10/03/19 04:00 Normal Saline W/20 Meq Kcl IV 11/02/19 02:59 125 mls/hr .Q8H DENISA Administration Phenol 2 sprays 10/02/19 06:33 10/03/19 04:00 Chloraseptic 1.4% Ideal MT 11/01/19 06:32 2 sprays Q2H PRN Administration Sore Throat Past Medical History Medical History Allergic rhinitis (Acute) Aneurysm (Chronic) HX OF 15 YEARS AGO. Aneurysm of basilar artery (Acute) Arthritis (Acute) Benign lipomatous tumor (Acute) COPD (chronic obstructive pulmonary disease) (Chronic) Depression (Chronic) Emphysema lung (Chronic) Generalized osteoarthritis of multiple sites (Acute) GERD (gastroesophageal reflux disease) (Chronic) History of anesthesia reaction PT STATES THAT SHE WOKE UP TWICE DURING PREVIOUS COLONOSCOPY AND WAS ADVISED TO ALERT STAFF OF THIS FOR FUTURE PROCEDURES. 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) Occipital neuralgia (Acute) Parkinsons Self-harm Spinal stenosis (Chronic) Stomach ulcer (Acute) Stroke (Acute) Exercise / Class Metabolic Activity III < 4 Walking/Shop/Light housework Past Family History Family History Mother Depression Hypertension Anxiety Sister Depression Hypertension Cerebral aneurysm Anxiety Father Hypertension Myocardial infarction Cardiac disorder Anxiety Other Family history non-contributory Past Surgical History Surgical History History of spinal surgery (Chronic) LUMBAR FUSION History of surgery REMOVAL OF RIGHT LABIA FOLLOWING DX OF VULVA CANCER S/P excision of lipoma (Chronic) Status post craniectomy Status post right knee replacement (Chronic) Past Anesthesia History No Hx of Anesthesia Complications and No Family Hx of Anesthesia Complications History of PONV No Hx of PONV and No Hx of Motion Sickness Social History Smoking Status: Former smoker tobacco type: cigarettes Smoking cigarettes per day: 4 Hx Alcohol Use: No Hx Substance Use: No substance use type: does not use Physical Exam Vital Signs Last Vital Signs Temp 37.2 C 10/03/19 03:35 Pulse 89 10/03/19 03:35 Resp 16 10/03/19 03:35 BP 152/82 H 10/03/19 03:35 Pulse Ox 94 10/03/19 03:35 Testing Laboratory Results 10/03/19 06:34 Urine Color Yellow 10/01/19 23:34 Urine Appearance Turbid (Clear) A 10/01/19 23:34 Urine pH 8.5 (4.5-7.5) H 10/01/19 23:34 Ur Specific [place] 1.024 (1.000-1.030) 10/01/19 23:34 Urine Protein Negative (Negative) 10/01/19 23:34 Urine Glucose (UA) Negative (Negative) 10/01/19 23:34 Urine Ketones Trace (Negative) H 10/01/19 23:34 Urine Nitrite Negative (Negative) 10/01/19 23:34 Ur Leukocyte Esterase 2+ (Negative) H 10/01/19 23:34 Urine WBC (Auto) 5-10 /hpf (0-5) H 10/01/19 23:34 Urine RBC (Auto) 5-10 /hpf (0-4) H 10/01/19 23:34 U Hyaline Cast (Auto) 1-5 /lpf (0-5) 10/01/19 23:34 U Epithel Cells (Auto) 10-20 /lpf (0-5) H 10/01/19 23:34 Urine Bacteria (Auto) Negative (Negative) 10/01/19 23:34 10/01/19 23:07 Aerobic Blood Culture - Preliminary Blood No growth in Aerobic bottle after 24 hours. Anaerobic Blood Culture - Preliminary No growth in Anaerobic bottle after 24 hours. 10/01/19 23:12 Aerobic Blood Culture - Preliminary Blood No growth in Aerobic bottle after 24 hours. Anaerobic Blood Culture - Preliminary No growth in Anaerobic bottle after 24 hours. Electrocardiogram Date: 08/27/19 SR at 95;w/ occasional PVC's ;septal infarct,age ? T wave abnormality,consider anterior ischemia Chest X-Ray Date: 08/27/19 Findings: + NAD Echocardiogram Date: 10/10/15 EF: 55 LV Function: normal RWMA: + none Other Findings: + diastolic dysfunction (grade 1) Cardiac Catheterization Date: 10/14/09 Findings: + pertinent finding (Luminal irregularities only)
[2019-10-03] MEDS ORDERED: BUPIVACAINE 0.5 % 5 MG/1 ML MPF 30ML VIAL ONE (07:28)
[2019-10-03 07:47] LABS: Albumin Globulin Ratio 1.2 (0.9-2); Bilirubin,Total 0.7 mg/dl (0.2-1); Globulin 2.7 gm/dl (2.5-4.0); Phosphorus 3.2 mg/dl (2.5-4.9); Total Protein 6.1 gm/dl (6.4-8.2)
[2019-10-03] MEDS ORDERED: ONDANSETRON INJ 2 MG/ML 2 ML VIAL ONE (08:06)
[2019-10-03] MEDS ORDERED: fentaNYL citrate 100 MCG/2 ML VIAL ONE ×4 (08:06→10:03)
[2019-10-03] MEDS ORDERED: LIDOCAINE HCL 2% 2 ML VIAL/AMP(20MG/ML) INFIL ONE (08:06)
[2019-10-03] MEDS ORDERED: DEXAMETHASONE SOD INJ 4 MG/ML VIAL ONE (08:06)
[2019-10-03] MEDS ORDERED: PROPOFOL IV EMULSION 10 MG/ML 20 ML VIAL IV ONE (08:06)
[2019-10-03] MEDS ORDERED: MIDAZOLAM HCL 1 MG/ML 2ML VIAL ONE (08:06)
--- NOTE | 2019-10-03 08:28 | Surgery Progress Note ---
Date of Service October 03, 2019 Assessment & Plan (1) Small bowel obstruction: Not resolving with conservative measures. Discussed exploratory laparotomy, possible bowel resection and she is anxious to proceed. Consent signed. For OR today. Present on Admission?: Yes Subjective No changes. Still feeling very distended and as though she is about to "Pop". Crampy abdominal pain. No flatus. Physical Exam Constitutional: average body habitus; no acute distress Eyes: + anicteric sclerae Neck: normal visual inspection and trachea midline Respiratory: normal respiratory effort, lungs clear to auscultation Cardiovascular: RRR, no murmur, no edema Gastrointestinal (Abdomen): Inspection/Auscultation: + abdomen distended (markedly) Percussion/Palpation: abdomen soft; abdomen nontender, no guarding, no hernia and no abdominal mass Neurologic: moves all extremities; no focal motor deficits Psychiatric: Orientation: alert and oriented x 3 Results & Data Vital Signs (Past 12 Hours) Vital Signs Temp Pulse Resp BP Pulse Ox 10/03/19 07:38 36.5 C 85 20 175/109 H 95 10/03/19 03:35 37.2 C 89 16 152/82 H 94 10/03/19 00:10 36.5 C 80 18 133/75 92
[2019-10-03] MEDS ORDERED: ESMOLOL HCL INJ 10 MG/ML 10ML VIAL IV ONE (08:59)
[2019-10-03] MEDS ORDERED: SUCCINYLCHOLINE 100MG/5ML SYR ONE (08:59)
[2019-10-03] MEDS ORDERED: HYDROmorphone INJ 2 MG/ML SYR/VIAL ONE (09:10)
--- NOTE | 2019-10-03 09:53 | Operative Report ---
Post Operative Report Pre & Post Diagnosis Operation Date: 10/03/19 08:30 Pre-Op Diagnosis: Small bowel obstruction Post-Op Diagnosis: Small bowel obstruction had fully resolved, two small mesenteric nodules I identified the patient and participated in the time-out.: Yes Procedure Operation Date: 10/03/19 08:30 Actual Procedures p Exploratory Laparotomy, Biopsy of Mesentery Nodule(Not Applicable) - Rajwinder Garcia MD Surgeon Rajwinder Garcia MD Pharmacist'S Aide none Estimated Blood Loss 5 Findings See Below (complete resolution of SBO, no adhesions, 2 small (6 mm) mesenteric nodules -?nodes -removed) Specimens small bowel mesenteric nodules x 2 Description of Procedure see dictated operative report I attest to the content of the Intraoperative Record and any orders documented therein. Any exceptions are noted below.
[2019-10-03] MEDS ORDERED: ATROPINE SULFATE 0.1 MG/ML 10ML SYR IV PRN (10:17)
[2019-10-03] MEDS ORDERED: ePHEDrine sulfate 50 MG/ML AMP IV PRN (10:17)
[2019-10-03] MEDS ORDERED: ONDANSETRON INJ 2 MG/ML 2 ML VIAL IV PRN (10:17)
[2019-10-03] MEDS ORDERED: LABETALOL HCL IV 5 MG/ML 20ML IV PRN (10:17)
[2019-10-03] MEDS ORDERED: FLUMAZENIL 0.1 MG/1 ML 10 ML VIAL IV PRN (10:17)
[2019-10-03] MEDS ORDERED: NALOXONE HCL 0.4 MG/1 ML VIAL/CARP IV PRN (10:17)
[2019-10-03] MEDS ORDERED: HYDROmorphone INJ 1 MG/ML SYRINGE IV PRN (10:17)
[2019-10-03] MEDS ORDERED: PROMETHAZINE HCL 12.5 MG in SODIUM CHLORIDE 0.9% 50 ML IV PRN (10:17)
[2019-10-03] MEDS: fentaNYL citrate 100 MCG/2 ML VIAL IV PRN ×4 (10:28→10:43)
--- NOTE | 2019-10-03 10:40 | Operative Report ---
DATE OF OPERATION: 10/03/2019 PREOPERATIVE DIAGNOSES: Small-bowel obstruction with a brain cancer of unknown primary. POSTOPERATIVE DIAGNOSES: Small-bowel obstruction, had completely resolved. Two small mesenteric nodules resected. OPERATIVE PROCEDURE: Exploratory laparotomy, resection of mesenteric nodules. SURGEON: Rajwinder Garcia MD. JEWELRY CASTING MODEL MAKER: None. ANESTHESIA: General endotracheal anesthesia, ASA 4E. ESTIMATED BLOOD LOSS: 5 mL. FLUIDS: 1200 mL. SPECIMENS: Mesenteric nodule x2. OPERATIVE FINDINGS: Complete resolution of small-bowel obstruction. No evidence of any adhesive disease to either prior right paramedian incision or in the pelvis. Small bowel was normal in caliber. The mesentery of small bowel was run from ligament of Treitz to terminal ileum. Two small 5-6 mm pink nodules were noted along the mesentery consistent with small lymph nodes. These were resected. Given the patient's history of cancer and unknown primary, no evidence of any liver lesions, no other intra-abdominal pathology. INDICATIONS: Ms. Caor is a 68-year-old woman who was recently diagnosed with brain cancer status post craniectomy. The primary source is unknown. She presented to the hospital with a small-bowel obstruction with severe dilation of her bowel with possible transition point in her pelvis. She was initially treated nonoperatively, but continued to have severe crampy pain and felt as though she was not resolving the obstruction. Her NG tube output continued to be high. For this reason, we discussed exploratory laparotomy and she consented to proceed. DESCRIPTION OF PROCEDURE: The patient received Mefoxin preoperatively. She was on Zosyn preoperatively also. She had placement of sequential compression devices and a Andrade catheter. Her abdomen was sterilely prepped and draped. After the induction of general endotracheal anesthesia, a midline incision was made and carried down through the significant subcutaneous tissue to the fascia. The fascia was opened and the abdomen bluntly entered. Initial inspection revealed no evidence of any free fluid. The bowel did not look markedly dilated. The NG was checked in position and was noted to be in the stomach. The liver had no evidence of lesions. The small bowel was then identified at the ligament of Treitz. This was then run twice extending all the way to the terminal ileum and the junction to the cecum. There was no evidence of any adhesions. No evidence of any bowel dilation. The bowel was pink and of normal caliber and running the bowel the second time 2 small nodules were noted on the mesentery. These did appear to be small lymph nodes given the patient's history of cancer of unknown source. These were both resected and sent for pathology. The silk sutures were used to close one of the mesenteric defect. The other did not leave a defect as it was very superficial. The bowel was placed back into the abdominal cavity. The colon was inspected. The pelvis was inspected. There was no pathology noted. The abdomen was then closed with a looped #1 PDS suture. The wound was irrigated. The skin was closed with sruthi. 0.5% Marcaine was injected for local anesthesia. She was taken to recovery in stable condition. I attest to the content of the Intraoperative Record and any orders documented therein. Any exception s are noted below.
--- NOTE | 2019-10-03 11:22 | Anesthesiology Progress Note ---
Date of Service October 03, 2019 Anesthesia Post Procedure Vital Signs Vital Signs: Temp Pulse Pulse Pulse Pulse Resp BP 10/03/19 11:00 37.4 C 65 14 10/03/19 10:45 62 16 10/03/19 10:35 60 12 10/03/19 10:25 62 20 10/03/19 10:15 67 17 10/03/19 10:09 36.9 C 77 12 10/03/19 09:22 89 10/03/19 07:40 170/90 H 10/03/19 07:38 36.5 C 85 20 175/109 H 10/03/19 03:35 37.2 C 89 16 152/82 H 10/03/19 00:10 36.5 C 80 18 133/75 10/02/19 20:12 36.9 C 99 H 22 137/87 10/02/19 17:31 82 10/02/19 15:30 36.5 C 83 19 149/81 H 10/02/19 11:37 36.4 C L 87 22 BP Pulse Ox 10/03/19 11:00 147/76 H 94 10/03/19 10:45 126/90 94 10/03/19 10:35 165/90 H 100 10/03/19 10:25 164/90 H 100 10/03/19 10:15 168/87 H 100 10/03/19 10:09 161/84 H 97 10/03/19 09:22 10/03/19 07:40 10/03/19 07:38 95 10/03/19 03:35 94 10/03/19 00:10 92 10/02/19 20:12 91 10/02/19 17:31 10/02/19 15:30 95 10/02/19 11:37 102/67 90 Pain Intensity Abdomen: Pain Intensity: 3 Transfer of Care Handoff Completed per policy Notes Mental Status: alert / awake / arousable Patient Amnestic to Procedure: Yes Nausea / Vomiting: adequately controlled Pain: adequately controlled Airway Patency, RR, SpO2: stable & adequate BP & HR: stable & adequate Hydration State: stable & adequate Anesthetic Complications: no major complications apparent
[2019-10-03] MEDS: ENOXAPARIN INJ 40 MG/0.4 ML SYR SQ SCH (11:47)
[2019-10-03] MEDS: POTASSIUM CHLORIDE 40 MEQ in SODIUM CHLORIDE 0.9% 1000ML 1,000 ML IV SCH ×2 (11:50→20:11)
[2019-10-03] MEDS: HYDROmorphone INJ 0.5 MG/0.5 ML SYR IV PRN ×2 (13:48→21:26)
[2019-10-03] MEDS: ACETAMINOPHEN 1,000 MG/100 ML VIAL IV PRN (15:52)
[2019-10-03] MEDS ORDERED: HydrALAZINE 10 MG TAB PO ONE (17:15)
[2019-10-03] MEDS ORDERED: ONDANSETRON 4 MG OD TAB PO PRN (17:16)
[2019-10-03] MEDS: DiphenhydrAMINE HCL 50 MG/ML VIAL IV PRN (17:46)
[2019-10-03] MEDS ORDERED: CARBIDOPA/LEVODOPA 25-250 1 EA TAB PO PRN (18:25)
[2019-10-03] MEDS: LISINOPRIL 20 MG TAB PO SCH (18:44)
[2019-10-03] MEDS: OXYCODONE HCL IR 5 MG TAB (IMMEDIATE RELEASE) PO PRN (18:44)
[2019-10-03] MEDS: MIRTAZAPINE TAB 15 MG TAB PO SCH (21:27)
[2019-10-03] MEDS: cloNIDine HCl 0.1 MG TAB PO SCH (21:27)
[2019-10-03] MEDS: GABAPENTIN 600 MG TAB PO SCH (21:27)
[2019-10-03] MEDS: HydrALAZINE 10 MG TAB PO SCH (21:27)
[2019-10-03] MEDS ORDERED: ALUMINUM/MAGNESIUM SUSP 30 ML UDC PO STA (22:10)
[2019-10-03] MEDS: PANTOprazole 40 MG TAB PO SCH (22:44)
[2019-10-04] MEDS: DiphenhydrAMINE HCL 50 MG/ML VIAL IV PRN ×2 (00:08→15:26)
[2019-10-04] MEDS: OXYCODONE HCL IR 5 MG TAB (IMMEDIATE RELEASE) PO PRN ×4 (00:08→19:43)
--- NOTE | 2019-10-04 00:48 | Hospitalist Progress Note ---
Date of Service October 03, 2019 Assessment & Plan (1) Small bowel obstruction: NG tube to intermittent suction - drained 2730 mL green bile preoperatively. Now requesting removal. Continue to monitor I&Os Cancel abdominal circumference Qshift No small bowel obstruction found on surgery. Will need follow-up for lymph node pathology. Given no neuroendocrine tumor found suspicion most likely bowel obstruction was due to adhesions. 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 Follow-up with Dr. Jernigan with thyroid ultrasound and dotatate scan planned (3) Neuroendocrine tumor: As above (4) Restless leg syndrome: Unclear history from prior notes of Parkinson's/restless leg syndrome. Large amount of Sinemet for restless leg syndrome. No Neupro available from pharmacy for replacement. No symptoms of Parkinson's disease on exam without Sinemet. Will re-prescribe a single dose at night for restless leg syndrome and consult neurology for tomorrow for ongoing management (discussed previously over the phone with Dr Ponce). Previously seen by Dr Byrd in hospital and was supposed to follow- up outpatient but she apparently left before the patient could be seen. She was set up with a PA but she refuses to see physicians assistants due to previous bad experiences. (5) Hypertension: Continue routine home medication. Will restart now postoperatively. (6) DVT prophylaxis: Lovenox 40mg daily SQ (7) Discharge planning issues: PT and OT eval's Advance diet as tolerated. Subjective Patient seen postoperatively. Requesting NG tube removal reporting that she knows the consequences of potentially removing this but does not want to and anymore. She requests a chocolate milkshake as she feels this will make her abdominal pain much better. She requests restarting all her usual p.o. medication. Her pain is generally better, except around the surgical site. She denies any nausea, vomiting or diarrhea. Discussed with Dr. Garcia and interestingly the small bowel obstruction had resolved by the time of surgery. Given the amount of fluid coming through the NG tube when it was placed yesterday this was certainly consistent of a small bowel obstruction but was resolved by the time of the surgery. Review of Systems Review of Systems: All systems reviewed & are unremarkable except as noted in HPI & below Physical Exam Constitutional: WD/WN, vitals as above no acute distress and not obese Neck: normal visual inspection and trachea midline Respiratory: normal respiratory effort, lungs clear to auscultation Cardiovascular: Rate/Rhythm: regular rate and regular rhythm Heart Sounds: no murmur Vessels: no carotid bruit Gastrointestinal (Abdomen): Inspection/Auscultation: + abdomen distended (Much improved from preoperative exam) and + hypoactive bowel sounds Percussion/Palpation: + abdomen tender (Around surgical site) and abdomen soft; no guarding, abdomen not rigid, no hernia and no abdominal mass Musculoskeletal: no cyanosis or clubbing, extremities motor strength 5/5 Skin: no rashes, warm and dry Neurologic: moves all extremities and awake; no focal motor deficits and not confused Motor/Sensory: no tremor, no pronator drift and no sensory deficit Psychiatric: Orientation: alert and oriented x 3 Results & Data Vital Signs (Past 12 Hours) Vital Signs Temp Pulse Resp BP BP Pulse Ox 10/04/19 00:13 98.2 F 89 16 133/93 10/03/19 23:15 99.1 F 93 H 18 169/80 H 93 10/03/19 21:24 80 20 161/85 H 95 10/03/19 17:10 78 167/75 H 10/03/19 15:05 98.2 F 108 H 18 192/89 H 90 10/03/19 14:38 98.2 F 98 H 17 167/74 H 90 10/03/19 13:34 98.6 F 73 18 147/85 H 90 PG Care Time/CCT Total # of Minutes Spent Total Time Spent with Patient: Total time spent is greater than 50% in coordination of care (as documented) at patient's floor/unit and/or counseling patient: (1) Hypertension Hypertension type: essential hypertension Qualified Code(s): I10 - Essential (primary) hypertension
[2019-10-04] MEDS: LORazepam 0.5 MG/1 ML VIAL IV PRN ×2 (01:41→23:02)
[2019-10-04 05:31] LABS: Basophils # (auto) 0.01 K/uL (0-0.2); Basophils % (auto) 0.1 %; Eosinophils # (auto) 0.04 K/uL (0-0.5); Eosinophils % (auto) 0.4 %; Hematocrit (blood only) 34.6 % (37-47); Immature Granulocytes # (auto) 0.01 K/uL (0.00-0.02); Immature Granulocytes % (auto) 0.1 %; Lymphocytes # (auto) 1.38 K/uL (1.2-3.4); Lymphocytes % (auto) 13.8 %; Mean Corpuscular Hgb Conc 31.8 g/dL (32-36); Mean Corpuscular Volume 100.6 fL (80-100); Mean Platelet Volume 9.7 fL (7.4-10.4); Monocytes # (auto) 0.88 K/uL (0.11-0.59); Monocytes % (auto) 8.8 %; Neutrophils # (auto) 7.66 K/uL (1.4-6.5); Neutrophils % (auto) 76.8 %; Platelet Count 193 K/uL (130-400); RDW Standard Deviation 47.7 fL (36.4-46.3); Red Blood Count 3.44 M/uL (4.2-5.4); White Blood Count 9.98 K/uL (4.8-10.8)
[2019-10-04 06:06] LABS: Alanine Aminotransferase < 6 U/L (12-78); Albumin Globulin Ratio 1.1 (0.9-2); Albumin Level 3.2 gm/dl (3.4-5.0); Alkaline Phosphatase 54 U/L (45-117); Aspartate Aminotransferase 6 U/L (15-37); BUN Creatinine Ratio 16.4 (10-20); Bilirubin,Total 0.8 mg/dl (0.2-1); Blood Urea Nitrogen 8 mg/dl (7-18); Calcium 8.4 mg/dl (8.5-10.1); Carbon Dioxide 28 mmol/L (21-32); Chloride 106 mmol/L (98-107); Creatinine Clr Calc Pharmacy 119.2 ml/min; Est GFR (African American) 118.5; Est GFR (Non-African American) 102.2; Globulin 2.8 gm/dl (2.5-4.0); Glucose 95 mg/dl (70-99); Magnesium 1.8 mg/dl (1.8-2.4); Phosphorus 2.2 mg/dl (2.5-4.9); Potassium 3.4 mmol/L (3.5-5.1); Sodium 140 mmol/L (136-145)
[2019-10-04] MEDS: POTASSIUM CHLORIDE 40 MEQ in SODIUM CHLORIDE 0.9% 1000ML 1,000 ML IV SCH (06:27)
[2019-10-04] MEDS ORDERED: POTASSIUM CHLORIDE 20 MEQ TABCR PO ONE (06:45)
[2019-10-04] MEDS: HYDROmorphone INJ 0.5 MG/0.5 ML SYR IV PRN (08:45)
[2019-10-04] MEDS ORDERED: MIRTAZAPINE TAB 15 MG TAB PO SCH (09:00)
[2019-10-04] MEDS ORDERED: PANTOprazole 40 MG TAB PO SCH (09:00)
[2019-10-04] MEDS: DULOXETINE HCL 30 MG CAP PO SCH (09:05)
[2019-10-04] MEDS: HydrALAZINE 10 MG TAB PO SCH ×3 (09:05→21:16)
[2019-10-04] MEDS: cloNIDine HCl 0.1 MG TAB PO SCH ×2 (09:05→21:14)
[2019-10-04] MEDS: ENOXAPARIN INJ 40 MG/0.4 ML SYR SQ SCH (09:05)
[2019-10-04] MEDS: LISINOPRIL 20 MG TAB PO SCH (09:08)
[2019-10-04] MEDS: PANTOprazole 40 MG TAB PO SCH (09:08)
[2019-10-04] MEDS: GABAPENTIN 600 MG TAB PO SCH ×3 (09:08→21:15)
[2019-10-04] MEDS: AMLODIPINE BESYLATE 5 MG TAB PO SCH (09:08)
--- NOTE | 2019-10-04 11:14 | Neurology Consultation ---
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 No primary has been identify with extensive testing by Oncology. However, the patient gives a history of intermittent headaches, flushing and sweating, rapid heart rate, abdominal pain, and other symptoms including blurry vision. It is quite possible that she has a primary neuroendocrine tumor based in the abdomen (or possibly other places). These tumors can be notoriously small and hard to find. And other primary is possible but has not been found so far. 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 Patient has significant restless leg syndrome for many years helped considerably by Sinemet. She has no signs of Parkinson's disease today. There is no cogwheel rigidity, resting tremor, or significant bradykinesia. Patient has history of chronic low back pain post lumbar spine surgery in 2011 with fusion from L3-S1. She has chronic radicular pain in the left leg as well. She has cervical spine pain of a chronic nature but does not have any occipital neuralgia symptoms today. In 2011 she was noted to have 2 tiny aneurysms of the basilar artery by MR a ngiography. CT angiography in July of 2018 did not confirm any aneurysms. Recommendations: 1. Evaluate for neuroendocrine tumor. Consider 24 hour urine for catecholamines and thyroid testing if not already done. Apparently she is scheduled for thyroid ultrasound. 2. Consider NET test- this is a blood test sent to an outside lab a new angle in which is very specific for neuroendocrine tumors. 3. Agree with gallium 68 dotatate PET/CT scan. This could be done at [facility] where they do them regularly. This may help localize neuroendocrine tumor. 4. I see no need for additional neurologic testing at this time. As an outpatient could consider EMG and nerve conduction studies of limbs that have radicular symptoms and reimage her spine if necessary. 5. I will not be participating in pain management on this patient otherwise. 6. I see no need for neurovascular testing at this time but this could be followed up as an outpatient, if desired. 7. Continue Sinemet as she is used to taking and I can re-evaluate this is an outpatient, if desired. Overall, I spent a total of 120 minutes with this case including review of records, review of MRI films, direct evaluation patient bedside, and discussion of the case with the patient at bedside, and Dr. Hough, including differential diagnosis and treatment options. History of Present Illness Reason for Consultation: Patient is a 68-year-old, who I was asked to see at the request of Dr. Hough, for neurologic consultation regarding restless leg syndrome and other issues. Requesting Physician: Dr. Hough Attending Physician: Odessa Hough MD History of Present Illness Apparently, the patient fell from a 2 story window on to the sidewalk landing on her left forehead at age 3 and half years. She had a skull fracture. Her most recent MRI of the brain in June of 2019 shows an old small right frontal area of encephalomalacia which is stable. Patient tells me that she has had restless leg syndrome for almost [address] Amin in the past and he initiated 25/100 carbidopa/levodopa. This has helped and she has used this intermittently ever since. The last note that I have of Dr. Amin is in December of 2011. He states the patient never had a diagnosis of Parkinson's disease (which the patient verifies) and diagnosis is always been restless leg syndrome. Can be quite intense at times. She describes it as were miss in her legs that can be tickling her and require movement to relieve the symptoms. She will take 4 5 Sinemet a day to help this problem. Patient has a history of low back pain and left lower extremity radicular symptoms. She was diagnosed with lumbar spinal stenosis at L3-4 and L5-S1, as well as facet arthrosis and degenerative spondylolisthesis at L5-S1. She underwent laminectomy and facetectomy with bony fusion from L3 through S1. She has continued to have low back pain and left lower extremity pain ever since. This continues even up to the present. In 2011 she had confusion and had a MR angiography study of the head. There was a 2 mm basilar tip aneurysm in a 3 mm basilar based aneurysm seen. CT angiography of the head done July 2018, showed no aneurysms including the basilar artery. The patient has a history of chronic neck pain, headaches and right occipital pain suspect occipital neuralgia. She saw Dr. Byrd in January of 2019. At that time imaging studies showed expansile lesions in the right occipital bone and possibly the right frontal skull. Bone scan showed that the right occipital skull intensely lit up. She has some nonspecific uptake in her spine consistent with degenerative changes only. By this summer she saw the doctor Behzad, neurosurgeon at [facility], who felt that the skull lesion was stable but then later on may have been changing by the fall. In early August he did a bone biopsy and the pathology came back neuroendocrine tumor with possible lung primary. All imaging studies of the lung and abdomen did not show any tumors or other primary issues. She has been seen Dr. Jernigan regularly. The patient has been having intermittent headaches of a bitemporal achy nature for at least a year occurring twice a week. She has episodes of rapid heart rate intermittently for several years as well as flushing and sweating episodes that could be up to multiple times a day. These flushing episodes have been occurring for almost 9 years. Over the last year she has had intermittent diarrhea and lightheadedness with standing. When her blood pressure medication was lowered the summer her lightheadedness with standing has improved. She has had intermittent abdominal pain and was admitted on October 02 for small bowel obstruction causing nausea vomiting abdominal pain. She had exploratory laparotomy and resection of 2 small mesenteric nodules. Her small bowel obstruction had resolved. She currently has abdominal pain with movement but is doing fairly well. Allergies Allergy/AdvReac Type Severity Reaction Status Date / Time bee venom protein (honey bee) Allergy Intermediate "I PASS Verified 10/02/19 00:14 OUT." nicotine Allergy Intermediate skin Verified 10/02/19 00:14 irritation bupropion Allergy Unknown unknown Verified 10/02/19 00:14 codeine Allergy Unknown unknown - Verified 10/02/19 00:14 TOLERATES PERCOCET Sulfa (Sulfonamide Allergy Unknown CAN'T Verified 10/02/19 00:14 Antibiotics) REMEMBER morphine AdvReac Intermediate CAN Verified 10/02/19 00:14 TOLERATE SMALL DOSES. hydromorphone [From Dilaudid] AdvReac Unknown TOLERATES Verified 10/02/19 00:14 SMALL DOSES ONLY Home Medications Home Medications Medication Instructions Recorded Confirmed Type amlodipine 5 mg PO QAM 08/07/18 10/02/19 History lisinopril 20 mg PO QAM 08/07/18 10/02/19 History gabapentin 600 mg PO TID 01/31/19 10/02/19 History acetaminophen [Tylenol Extra 1,000 mg PO QID PRN 06/02/19 10/02/19 History Strength] docusate sodium 100 mg PO BID PRN #30 cap 06/04/19 10/02/19 Rx fluticasone propionate 2 sprays [place] DAILY PRN #1 box 06/04/19 10/02/19 Rx ondansetron 4 mg PO Q8H PRN #30 tab 06/29/19 10/02/19 Rx clonazepam 1 mg tablet 0.5 - 1 mg PO DIRECTED tab 07/21/19 10/02/19 History hydralazine 10 mg tablet 10 mg PO TID #90 tab 07/30/19 10/02/19 Rx hydrochlorothiazide 25 mg tablet 25 mg PO DAILY #30 tab 08/05/19 10/02/19 Rx carbidopa 25 mg-levodopa 250 mg 1 tab PO .7 X DAY tab 08/09/19 10/02/19 History tablet duloxetine 30 mg capsule,delayed 30 mg PO DAILY 08/23/19 10/02/19 History release mirtazapine 30 mg tablet 30 mg PO DAILY tab 08/23/19 10/02/19 History oxycodone 5 mg capsule 5 mg PO .COMPLEX cap 08/23/19 10/02/19 History potassium chloride 20 mEq 20 meq PO DAILY tab 08/23/19 10/02/19 History tablet,extended release clonidine HCl 0.1 mg tablet 0.2 mg PO BID #120 tab 08/24/19 10/02/19 Rx morphine 15 mg PO Q6H PRN #10 tab 08/27/19 10/02/19 Rx omeprazole 20 mg tablet,delayed 20 mg PO DAILY #30 tab 09/01/19 10/02/19 Rx release Patient History Medical History Allergic rhinitis (Acute) Aneurysm (Chronic) HX OF 15 YEARS AGO. Aneurysm of basilar artery (Acute) Arthritis (Acute) Benign lipomatous tumor (Acute) COPD (chronic obstructive pulmonary disease) (Chronic) Depression (Chronic) Emphysema lung (Chronic) Generalized osteoarthritis of multiple sites (Acute) GERD (gastroesophageal reflux disease) (Chronic) History of anesthesia reaction PT STATES THAT SHE WOKE UP TWICE DURING PREVIOUS COLONOSCOPY AND WAS ADVISED TO ALERT STAFF OF THIS FOR FUTURE PROCEDURES. 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 [employer] 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) Feels Safe at Home: Yes Safety Concerns: Feels Safe At This Time Smoking Status: Former smoker Tobacco Type: cigarettes ; Cigarettes Per Day: 4 ; Number of Years Since Quit: 2 ; Second Hand Exposure: No ; Hx Alcohol Use: No Hx Substance Use: No Review of Systems Constitutional: + fatigue and + weakness; no fever Eyes: + worsening vision (Patient says that her vision has been blurry and dim.); no diplopia and no eye pain Ear, Nose, Mouth, Throat: no ear pain, no tinnitus, no hearing loss, no dizziness, no snoring, no hoarseness and no dysphagia Respiratory: no cough and no dyspnea Cardiovascular: no chest pain, no palpitations and no lightheadedness Gastrointestinal: + abdominal pain; no nausea and no vomiting Genitourinary: no dysuria, no urinary frequency and no urinary incontinence Musculoskeletal: + back pain and + radicular pain; no neck pain, no joint pain and no myalgia Integumentary: no rash and no lesions Neurologic: + gait abnormality, + abnormal movements and + headache(s); no localized weakness, no generalized weakness, no tingling, no numbness, no tremor(s), no abnormal speech, no confusion and no memory loss Psychiatric: no depression, no irritability, no anxiety, no difficulty concentrating, no confusion and no hallucinations Endocrine: + fatigue and + flushing Hematologic / Lymphatic: no easy bleeding and no easy bruising Allergy / Immunological: no urticaria and no problem reported Physical Exam Physical Exam: The patient is right-handed. The patient is awake, alert, and attentive. Speech is normal without any aphasia or dysarthria. She can name objects, repeat phrases, and has normal spontaneous speech. Mentation and thought processes are intact, with orientation to person, place and time, and normal fund of knowledge. Attention and concentration are normal. Mood and affect are normal and appropriate. General appearance and grooming are normal. Short and long-term memory are intact. The discs are sharp with positive venous pulsations bilaterally. There are no exudates, hemorrhages, or blood vessel changes seen. Pupils are 4 mm bilaterally and reactive to light. Extraocular eye muscles are intact without nystagmus. Visual acuity and visual rodriguez seem normal grossly to confrontation. There are no deficits to sensation in the face in all 3 distributions of the fifth cranial nerve bilaterally. Corneal reflexes are positive bilaterally. Facial strength and symmetry was normal bilaterally. Hearing seems normal to whisper and finger rub bilaterally. Palate moves well without asymmetry. There is normal sternocleidomastoid and trapezius (shoulder shrug) strength bilaterally. Tongue is midline with good strength bilaterally. Neck has a full range of motion without discomfort. There are no cervical bruits bilaterally. There are no cranial or ocular bruits. Heart is without murmur. There is a regular rhythm and rate. Cervical, thoracic, and lumbar spine are nontender to palpation. Gait is narrow based but cautious and slow. She has some arm swing. Balance is normal eyes open but deteriorates with eyes closed. With outstretched arms there is no drift. There are no resting, postural, or action tremors. There is no ataxia with finger to nose testing. There is good facility in the hands. No other abnormal involuntary movements are noted. Motor strength is 5/5 diffusely in the arms bilaterally including deltoids, biceps, triceps, brachioradialis, wrist flexors and extensors, it audit manager, and intrinsic hand muscles. Motor strength is 5/5 diffusely in the legs bilaterally including hip flexors, quadriceps, hamstrings, gastrocnemius, tibialis anterior, tibialis posterior, and Peroneii muscles. Toe extensors are normal and there is good bulk in the extensor digitorum brevis muscles bilaterally. The limbs have good tone without rigidity or spasticity. There is no atrophy noted in the muscles. Muscle bulk is normal, there is no tenderness to palpation, no myotonia to percussion, and no fasciculations seen. Sensory examination is intact to touch and pin throughout all 4 limbs diffusely. Vibratory and position sense testing is normal bilaterally as well. Reflexes are 1/4 in the biceps, triceps, brachioradialis, and quadriceps tendons bilaterally. Achilles tendon reflexes were absent bilaterally. There is no clonus bilaterally. Toes are downgoing with plantar stimulation bilaterally. Peripheral pulses are present and of normal quality distally in all 4 limbs. There is no peripheral edema noted in the limbs. Results & Data Vital Signs (Past 12 Hours) Vital Signs Temp Pulse Pulse Resp BP Pulse Ox 10/04/19 06:40 36.7 C 76 20 138/70 90 10/04/19 03:40 36.8 C 90 16 142/83 H 91 10/04/19 00:13 36.8 C 89 16 133/93 10/03/19 23:15 37.3 C 93 H 18 169/80 H 93 PG Care Time/CCT Total # of Minutes Spent Total Time Spent with Patient: Total time spent is greater than 50% in coordination of care (as documented) at patient's floor/unit and/or counseling patient: (1) Headache Headache chronicity pattern: unspecified pattern Headache type: unspecified Intractability: intractable Qualified Code(s): R51 - Headache
--- NOTE | 2019-10-04 11:54 | Hospitalist Progress Note ---
Date of Service October 04, 2019 Assessment & Plan (1) Small bowel obstruction: NG tube to intermittent suction - drained 2730 mL green bile preoperatively. 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 Follow-up with Dr. Jernigan with thyroid ultrasound and dotatate scan planned (3) Neuroendocrine tumor: As above (4) Restless leg syndrome: Unclear history from prior notes of Parkinson's/restless leg syndrome. Large amount of Sinemet for restless leg syndrome. No symptoms of Parkinson's disease on exam without Sinemet. -appreciate Neurology consult-recommends restarting usual home doses of Sinemet, however after further discussion with Neuro by phone, decided to only give 2 tabs of SInemet as a standing order at bedtime in case Sinemet high doses contributed to bowel motility issue (5) Hypertension: Continue routine home medication BPs now controlled (6) DVT prophylaxis: Lovenox 40mg daily SQ (7) Discharge planning issues: PT and OT eval's Advance diet as tolerated. Continued stay Subjective Pt is passing a lot of flatus, no BM yet. Is tired of being on a clear liquids diet but understands why it is necessary. Is irritated by RN student coming into her room and multiple people coming to check her out. Denies nausea or vomiting. No chest pain or SOB. She is ambulating. She is making plenty of urine I discussed her case with the Surgery PA Review of Systems Review of Systems: All systems reviewed & are unremarkable except as noted in HPI & below Physical Exam Constitutional: WD/WN, vitals as above Eyes: + anicteric sclerae ENMT: external ear and nose normal, oropharynx normal Neck: trachea midline, no thyromegaly Respiratory: normal respiratory effort, lungs clear to auscultation Cardiovascular: RRR, no murmur, no edema Gastrointestinal (Abdomen): Inspection/Auscultation: + abdomen distended (mild-moderate); + abdomen abnormal to inspection (dressing over midling incision c/d/i) Percussion/Palpation: + abdomen tender (over incision site, otherwise none) and abdomen soft; no guarding and abdomen not rigid Musculoskeletal: Extremities: extremities normal to inspection; no cyanosis and no clubbing Skin: no rashes, warm and dry Neurologic: moves all extremities and awake; no focal motor deficits Psychiatric: Orientation: alert and oriented x 3 Eye Contact: good eye contact Affect: + irritable affect Results & Data Vital Signs (Past 12 Hours) Vital Signs Temp Pulse Pulse Resp BP Pulse Ox 10/04/19 06:40 36.7 C 76 20 138/70 90 10/04/19 03:40 36.8 C 90 16 142/83 H 91 10/04/19 00:13 36.8 C 89 16 133/93 Laboratory Results 10/04/19 10/04/19 Range/Units 04:58 04:58 WBC 9.98 (4.8-10.8) K/uL RBC 3.44 L (4.2-5.4) M/uL Hgb 11.0 L (12.0-16.0) g/dL Hct 34.6 L (37-47) % MCV 100.6 H (80-100) fL MCH 32.0 (25-34) pg MCHC 31.8 L (32-36) g/dL RDW Std Deviation 47.7 H (36.4-46.3) fL RDW Coeff of Ginger 13.0 (11.5-14.5) % Plt Count 193 (130-400) K/uL MPV 9.7 (7.4-10.4) fL Immature Gran % (Auto) 0.1 % Neut % (Auto) 76.8 % Lymph % (Auto) 13.8 % [place] % (Auto) 8.8 % Eos % (Auto) 0.4 % Baso % (Auto) 0.1 % Immature Gran # (Auto) 0.01 (0.00-0.02) K/uL Neut # (Auto) 7.66 H (1.4-6.5) K/uL Lymph # (Auto) 1.38 (1.2-3.4) K/uL [place] # (Auto) 0.88 H (0.11-0.59) K/uL Eos # (Auto) 0.04 (0-0.5) K/uL Baso # (Auto) 0.01 (0-0.2) K/uL Sodium 140 (136-145) mmol/L Potassium 3.4 L (3.5-5.1) mmol/L Chloride 106 (98-107) mmol/L Carbon Dioxide 28 (21-32) mmol/L Anion Gap 6.0 (3-11) BUN 8 D (7-18) mg/dl Creatinine 0.48 L (0.6-1.2) mg/dl Est Cr Clr Drug Dosing 119.2 ml/min Est GFR ( Amer) 118.5 Est GFR (Non-Af Amer) 102.2 BUN/Creatinine Ratio 16.4 (10-20) Glucose 95 (70-99) mg/dl Calcium 8.4 L (8.5-10.1) mg/dl Phosphorus 2.2 L D (2.5-4.9) mg/dl Magnesium 1.8 (1.8-2.4) mg/dl Total Bilirubin 0.8 (0.2-1) mg/dl AST 6 L (15-37) U/L ALT < 6 L (12-78) U/L Alkaline Phosphatase 54 (45-117) U/L Total Protein 6.0 L (6.4-8.2) gm/dl Albumin 3.2 L (3.4-5.0) gm/dl Globulin 2.8 (2.5-4.0) gm/dl Albumin/Globulin Ratio 1.1 (0.9-2) PG Care Time/CCT Total # of Minutes Spent Total Time Spent with Patient: Total time spent is greater than 50% in coordination of care (as documented) at patient's floor/unit and/or counseling patient: (1) Hypertension Hypertension type: essential hypertension Qualified Code(s): I10 - Essential (primary) hypertension
--- NOTE | 2019-10-04 12:43 | Surgery Progress Note ---
Date of Service October 04, 2019 Assessment & Plan (1) Small bowel obstruction: POD # 1 s/p ex lap, resection of two mesenteric nodules. No evidence of bowel obstruction or adhessions intraoperatively. -vitals stable, afebrile - pain post op with activity (ambulating hallway) - still distended but passing flatus - no bowel movement - no n/v, tolerating clear liquids Plan: Given abdominal distention would still recommend clear liquids continue ambulation and oob to chair IV Tylenol prn pain, try to avoid narcotics if possible Continue medical management Please see Dr. Stratton's note same date for plan Subjective "not doing well today, having pain, sick of all the people coming in and out of my room" wants something more to eat , just a piece of toast or something no n/v still bloated passing flatus but no bowel movement tolerating clear liquids Physical Exam Constitutional: WD/WN, vitals as above no acute distress Gastrointestinal (Abdomen): Inspection/Auscultation: + abdomen distended; + abnormal bowel sounds Percussion/Palpation: + abdomen tender and abdomen soft; no guarding and abdomen not rigid Skin: no rashes, warm and dry Psychiatric: A+Ox3, euthymic affect Results & Data Vital Signs (Past 12 Hours) Vital Signs Temp Pulse Pulse Resp BP Pulse Ox 10/04/19 06:40 36.7 C 76 20 138/70 90 10/04/19 03:40 36.8 C 90 16 142/83 H 91 Laboratory Results 10/04/19 10/04/19 Range/Units 04:58 04:58 WBC 9.98 (4.8-10.8) K/uL RBC 3.44 L (4.2-5.4) M/uL Hgb 11.0 L (12.0-16.0) g/dL Hct 34.6 L (37-47) % MCV 100.6 H (80-100) fL MCH 32.0 (25-34) pg MCHC 31.8 L (32-36) g/dL RDW Std Deviation 47.7 H (36.4-46.3) fL RDW Coeff of Ginger 13.0 (11.5-14.5) % Plt Count 193 (130-400) K/uL MPV 9.7 (7.4-10.4) fL Immature Gran % (Auto) 0.1 % Neut % (Auto) 76.8 % Lymph % (Auto) 13.8 % [place] % (Auto) 8.8 % Eos % (Auto) 0.4 % Baso % (Auto) 0.1 % Immature Gran # (Auto) 0.01 (0.00-0.02) K/uL Neut # (Auto) 7.66 H (1.4-6.5) K/uL Lymph # (Auto) 1.38 (1.2-3.4) K/uL [place] # (Auto) 0.88 H (0.11-0.59) K/uL Eos # (Auto) 0.04 (0-0.5) K/uL Baso # (Auto) 0.01 (0-0.2) K/uL Sodium 140 (136-145) mmol/L Potassium 3.4 L (3.5-5.1) mmol/L Chloride 106 (98-107) mmol/L Carbon Dioxide 28 (21-32) mmol/L Anion Gap 6.0 (3-11) BUN 8 D (7-18) mg/dl Creatinine 0.48 L (0.6-1.2) mg/dl Est Cr Clr Drug Dosing 119.2 ml/min Est GFR ( Amer) 118.5 Est GFR (Non-Af Amer) 102.2 BUN/Creatinine Ratio 16.4 (10-20) Glucose 95 (70-99) mg/dl Calcium 8.4 L (8.5-10.1) mg/dl Phosphorus 2.2 L D (2.5-4.9) mg/dl Magnesium 1.8 (1.8-2.4) mg/dl Total Bilirubin 0.8 (0.2-1) mg/dl AST 6 L (15-37) U/L ALT < 6 L (12-78) U/L Alkaline Phosphatase 54 (45-117) U/L Total Protein 6.0 L (6.4-8.2) gm/dl Albumin 3.2 L (3.4-5.0) gm/dl Globulin 2.8 (2.5-4.0) gm/dl Albumin/Globulin Ratio 1.1 (0.9-2)
--- NOTE | 2019-10-04 13:48 | Surgery Progress Note ---
Date of Service pt is doing better, passed flatus, pt denies abdominal pain, no nausea, no vomiting, October 04, 2019 Assessment & Plan (1) Small bowel obstruction: POD # 1 s/p ex lap, resection of two mesenteric nodules. No evidence of bowel obstruction or adhessions intraoperatively. -vitals stable, afebrile - pain post op with activity (ambulating hallway) - still distended but passing flatus - no bowel movement - no n/v, tolerating clear liquids Plan: Given abdominal distention would still recommend clear liquids continue ambulation and oob to chair IV Tylenol prn pain, try to avoid narcotics if possible Continue medical management 10/04/2019 1:47pm. doing fine, tolerated clear diet, full diet will F/U Supervising Physician Co-Signing Physician Notes Attending addendum: I have physically seen this patient, have supervised the medical residents activities, and agree with the H&P unless as otherwise noted. Assessment and Plan: Small bowel obstruction- Patient began to have obviously progressive distention while in the ED. After discussion she agreed to have placement of NG tube to low intermittent suction. NPO IV fluids. Zosyn 4.5 g IV every 8 hours. Famotidine 20 mg IV every 12 hours. Zofran 4 mg IV every 6 hours as needed PRN IV Lopressor and hydralazine. Follow on telemetry for administration of these medications. Consult general surgery. Remainder of orders and notations as noted. Subjective I discussed her case with the Surgery PA Physical Exam Constitutional: WD/WN, vitals as above well developed and well nourished Neck: trachea midline, no thyromegaly Respiratory: normal respiratory effort, lungs clear to auscultation Cardiovascular: RRR, no murmur, no edema Rate/Rhythm: regular rate and regular rhythm Gastrointestinal (Abdomen): Percussion/Palpation: abdomen soft mild tenderness at incision site, no redness, no drainage from incisionsite, Musculoskeletal: no cyanosis or clubbing, extremities motor strength 5/5 Neurologic: awake Psychiatric: Orientation: alert and oriented x 3 Results & Data Vital Signs (Past 12 Hours) Vital Signs Temp Pulse Pulse Resp BP Pulse Ox 10/04/19 06:40 36.7 C 76 20 138/70 90 10/04/19 03:40 36.8 C 90 16 142/83 H 91 Laboratory Results Abnormal lab results 10/04/19 10/04/19 Range/Units 04:58 04:58 RBC 3.44 L (4.2-5.4) M/uL Hgb 11.0 L (12.0-16.0) g/dL Hct 34.6 L (37-47) % MCV 100.6 H (80-100) fL MCHC 31.8 L (32-36) g/dL RDW Std Deviation 47.7 H (36.4-46.3) fL Neut # (Auto) 7.66 H (1.4-6.5) K/uL [place] # (Auto) 0.88 H (0.11-0.59) K/uL Potassium 3.4 L (3.5-5.1) mmol/L Creatinine 0.48 L (0.6-1.2) mg/dl Calcium 8.4 L (8.5-10.1) mg/dl Phosphorus 2.2 L D (2.5-4.9) mg/dl AST 6 L (15-37) U/L ALT < 6 L (12-78) U/L Total Protein 6.0 L (6.4-8.2) gm/dl Albumin 3.2 L (3.4-5.0) gm/dl
[2019-10-04] MEDS: POT PHOSPHATE MONOBASIC W/ SOD TAB PO SCH ×3 (14:10→21:15)
[2019-10-04] MEDS: ACETAMINOPHEN 1,000 MG/100 ML VIAL IV PRN ×2 (14:14→23:40)
[2019-10-04] MEDS: CHLORASEPTIC 1.4% SOLN 180 ML BTL MT PRN (15:29)
[2019-10-04] MEDS: CARBIDOPA/LEVODOPA 25-250 1 EA TAB PO SCH (21:15)
[2019-10-04] MEDS: MIRTAZAPINE TAB 15 MG TAB PO SCH (21:15)
[2019-10-05] MEDS: OXYCODONE HCL IR 5 MG TAB (IMMEDIATE RELEASE) PO PRN (05:02)
[2019-10-05 05:42] LABS: Basophils # (auto) 0.03 K/uL (0-0.2); Basophils % (auto) 0.4 %; Eosinophils # (auto) 0.15 K/uL (0-0.5); Hematocrit (blood only) 41.6 % (37-47); Hemoglobin 13.2 g/dL (12.0-16.0); Immature Granulocytes # (auto) 0.01 K/uL (0.00-0.02); Immature Granulocytes % (auto) 0.1 %; Lymphocytes # (auto) 2.06 K/uL (1.2-3.4); Lymphocytes % (auto) 27.9 %; Mean Corpuscular Hemoglobin 32.2 pg (25-34); Mean Corpuscular Hgb Conc 31.7 g/dL (32-36); Mean Corpuscular Volume 101.5 fL (80-100); Mean Platelet Volume 9.7 fL (7.4-10.4); Monocytes % (auto) 6.8 %; Neutrophils # (auto) 4.63 K/uL (1.4-6.5); Neutrophils % (auto) 62.8 %; Platelet Count 244 K/uL (130-400); RDW Coefficient of Variation 12.8 % (11.5-14.5); RDW Standard Deviation 47.6 fL (36.4-46.3); White Blood Count 7.38 K/uL (4.8-10.8)
[2019-10-05 06:14] LABS: Albumin Level 3.5 gm/dl (3.4-5.0); BUN Creatinine Ratio 9.8 (10-20); Calcium 9.1 mg/dl (8.5-10.1); Est GFR (African American) 113.3; Est GFR (Non-African American) 97.7; Potassium 3.6 mmol/L (3.5-5.1)
[2019-10-05 06:17] LABS: Bilirubin,Total 0.6 mg/dl (0.2-1); Globulin 3.6 gm/dl (2.5-4.0); Phosphorus 3.6 mg/dl (2.5-4.9); Total Protein 7.1 gm/dl (6.4-8.2)
--- NOTE | 2019-10-05 08:25 | Neurology Progress Note ---
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 No other primary has been identified after extensive testing by Oncology. However, the patient gives a history of intermittent headaches, flushing and sweating, rapid heart rate, abdominal pain, and other symptoms including blurry vision. It is quite possible that she has a primary neuroendocrine tumor based in the abdomen (or possibly other places). These tumors can be notoriously small and hard to find. 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 Patient has significant restless leg syndrome for many years helped considerably by Sinemet. She has no signs of Parkinson's disease today. There is no cogwheel rigidity, resting tremor, or significant bradykinesia. Patient has history of chronic low back pain post lumbar spine surgery in 2011 with fusion from L3-S1. She has chronic radicular pain in the left leg as well. She has cervical spine pain of a chronic nature but does not have any occipital neuralgia symptoms today. In 2011 she was noted to have 2 tiny aneurysms of the basilar artery by MR angiography. CT angiography in July of 2018 did not confirm any aneurysms. Recommendations: 1. Evaluate further for neuroendocrine tumors. Consider 24 hour urine for catecholamines and thyroid testing if not already done. Apparently she is scheduled for thyroid ultrasound. check TSH, and other thyroid labs 2. Consider NET test- this is a blood test sent to an outside lab a new angle in which is very specific for neuroendocrine tumors. 3. Agree with gallium 68 dotatate PET/CT scan. This could be done at [facility] where they do them regularly. This may help localize neuroendocrine tumor. 4. Check B12 in lieu of elevated MCV. 5. As an outpatient could consider EMG and nerve conduction studies of limbs that have radicular symptoms, and then re-image her spine if necessary. 6. I will not be participating in pain management on this patient otherwise. 7. I see no need for neurovascular testing at this time but this could be followed up as an outpatient, if desired. 8. Continue Sinemet TID at most, for now, and I can re-evaluate this is an outpatient, if desired. Overall, I spent a total of 35 minutes with this case including review of records, direct evaluation patient bedside, and discussion of the case with the patient and her [id number] Elpidio (via telephone) at bedside, and Dr. Hough, including differential diagnosis and treatment options. Subjective Patient feels somewhat better today with less abdominal pain and soreness. She states she is passing lot of gas. She has no new problems. She does feel fatigued because people wake her up too early in the morning Pressure is 166/93. CBC shows an elevated MCV with a normal white count and no significant anemia. Chem profile was largely unremarkable. Physical Exam Physical Exam: She is awake and alert. Speech is without aphasia or dysarthria. Mood is normal and affect is appropriate. Thought processes are intact to conversation. Extraocular eye muscles are intact without nystagmus. There is no facial droop. Coordination is normal in the limbs and strength is symmetrical Results & Data Vital Signs (Past 12 Hours) Vital Signs Temp Pulse Pulse Resp BP BP Pulse Ox 10/05/19 07:42 36.4 C L 81 18 166/93 H 92 10/04/19 23:35 36.6 C 84 16 162/84 H 95 PG Care Time/CCT Total # of Minutes Spent Total Time Spent with Patient: Total time spent is greater than 50% in coordination of care (as documented) at patient's floor/unit and/or counseling patient: (1) Headache Headache chronicity pattern: unspecified pattern Headache type: unspecified Intractability: intractable Qualified Code(s): R51 - Headache
[2019-10-05] MEDS: ACETAMINOPHEN 1,000 MG/100 ML VIAL IV PRN (08:26)
[2019-10-05] MEDS: cloNIDine HCl 0.1 MG TAB PO SCH ×2 (08:33→20:32)
[2019-10-05] MEDS: HydrALAZINE 10 MG TAB PO SCH ×3 (08:33→20:33)
[2019-10-05] MEDS: DULOXETINE HCL 30 MG CAP PO SCH (08:34)
[2019-10-05] MEDS: GABAPENTIN 600 MG TAB PO SCH ×3 (08:34→20:33)
[2019-10-05] MEDS: POTASSIUM CHLORIDE 20 MEQ TABCR PO SCH (08:34)
[2019-10-05] MEDS: POT PHOSPHATE MONOBASIC W/ SOD TAB PO SCH (08:34)
[2019-10-05] MEDS: AMLODIPINE BESYLATE 5 MG TAB PO SCH (08:34)
[2019-10-05] MEDS: PANTOprazole 40 MG TAB PO SCH (08:35)
[2019-10-05] MEDS: ENOXAPARIN INJ 40 MG/0.4 ML SYR SQ SCH (08:35)
[2019-10-05] MEDS: LISINOPRIL 20 MG TAB PO SCH (08:35)
--- NOTE | 2019-10-05 09:53 | Surgery Progress Note ---
Date of Service October 05, 2019 Assessment & Plan (1) Small bowel obstruction: POD # 2 s/p ex lap, resection of two mesenteric nodules. No evidence of bowel obstruction or adhessions intraoperatively. -vitals stable other than hypertensive - pain post op with activity (ambulating hallway), better controlled today - + return of bowel function - no n/v, tolerating full liquids Plan: Patient prefers to continue full liquids for lunch if does well, low fiber for dinner continue ambulation continue Tylenol prn pain, can add po Tylenol if not already to transition to oral meds instead of IV pain meds Colace BID given hard stool Medical management for HTN Dr. Stratton has seen patient, agrees with above Subjective had hard bowel movement this morning , still passing gas pain improved today, better controlled no nausea or vomiting, tolerated full liquids Physical Exam Constitutional: WD/WN, vitals as above no acute distress Gastrointestinal (Abdomen): Inspection/Auscultation: abdomen normal to inspection and + abdomen distended (mild but much improved today) Percussion/Palpation: + abdomen tender (mild in LUQ and at incision site) and abdomen soft; no guarding and abdomen not rigid Skin: no rashes, warm and dry + incision (clean/dry/intact, sruthi intact, no erythema) Psychiatric: A+Ox3, euthymic affect Results & Data Vital Signs (Past 12 Hours) Vital Signs Temp Pulse Pulse Resp BP BP Pulse Ox 10/05/19 07:42 36.4 C L 81 18 166/93 H 92 10/04/19 23:35 36.6 C 84 16 162/84 H 95 Laboratory Results 10/05/19 10/05/19 Range/Units 04:56 04:56 WBC 7.38 (4.8-10.8) K/uL RBC 4.10 L (4.2-5.4) M/uL Hgb 13.2 (12.0-16.0) g/dL Hct 41.6 (37-47) % MCV 101.5 H (80-100) fL MCH 32.2 (25-34) pg MCHC 31.7 L (32-36) g/dL RDW Std Deviation 47.6 H (36.4-46.3) fL RDW Coeff of Ginger 12.8 (11.5-14.5) % Plt Count 244 (130-400) K/uL MPV 9.7 (7.4-10.4) fL Immature Gran % (Auto) 0.1 % Neut % (Auto) 62.8 % Lymph % (Auto) 27.9 % [place] % (Auto) 6.8 % Eos % (Auto) 2.0 % Baso % (Auto) 0.4 % Immature Gran # (Auto) 0.01 (0.00-0.02) K/uL Neut # (Auto) 4.63 (1.4-6.5) K/uL Lymph # (Auto) 2.06 (1.2-3.4) K/uL [place] # (Auto) 0.50 (0.11-0.59) K/uL Eos # (Auto) 0.15 (0-0.5) K/uL Baso # (Auto) 0.03 (0-0.2) K/uL Sodium 143 (136-145) mmol/L Potassium 3.6 (3.5-5.1) mmol/L Chloride 106 (98-107) mmol/L Carbon Dioxide 31 (21-32) mmol/L Anion Gap 6.0 (3-11) BUN 5 L (7-18) mg/dl Creatinine 0.55 L (0.6-1.2) mg/dl Est Cr Clr Drug Dosing 104.0 ml/min Est GFR ( Amer) 113.3 Est GFR (Non-Af Amer) 97.7 BUN/Creatinine Ratio 9.8 L (10-20) Glucose 85 (70-99) mg/dl Calcium 9.1 (8.5-10.1) mg/dl Phosphorus 3.6 D (2.5-4.9) mg/dl Magnesium 2.0 (1.8-2.4) mg/dl Total Bilirubin 0.6 (0.2-1) mg/dl AST 8 L (15-37) U/L ALT 8 L (12-78) U/L Alkaline Phosphatase 67 (45-117) U/L Total Protein 7.1 (6.4-8.2) gm/dl Albumin 3.5 (3.4-5.0) gm/dl Globulin 3.6 (2.5-4.0) gm/dl Albumin/Globulin Ratio 1.0 (0.9-2)
[2019-10-05] MEDS: DOCUSATE SODIUM 100 MG CAP PO SCH ×2 (10:16→20:34)
--- NOTE | 2019-10-05 18:51 | Hospitalist Progress Note ---
Date of Service October 05, 2019 Assessment & Plan (1) Small bowel obstruction: Initially had NG tube to intermittent suction - drained 2730 mL green bile preoperatively. NGT removed on 10/03 Now POD#2 s/p ex-lap for SBO Ex-lap on 10/03 with complete resolution of SBO, 2 mesenteric nodules found and removed for path review, no adhesions noted Question if SBO was from decreased bowel motility due to high doses of Sinemet which was held on admission Path shows no tumor in the 2 nodules removed -is passing flatus, had a BM, distension now much improved -tolerating low fiber diet this evening -should be stable for dc to home tomorrow -with mild wound infection--> starte don keflex by Surgery -continue pain control prn -replace lytes as needed -Greatly appreciate Surgery management -encouraged ambulation (2) Status post craniectomy: 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 Follow-up with Dr. Jernigan with thyroid ultrasound and dotatate scan planned (3) Neuroendocrine tumor: As above (4) Restless leg syndrome: With a long h/o restless leg syndrome. Was on large amount of Sinemet for restless leg syndrome for many years-was taking 7 tabs a day of the 25/100mg tabs. No symptoms of Parkinson's disease on exam without Sinemet. -appreciate Neurology consult-recommends restarting usual home doses of Sinemet, however after further discussion with Neuro by phone, decided to only give 2 tabs of SInemet as a standing order at bedtime in case Sinemet high doses contributed to bowel motility issue -she is doing very well on this dose (5) Hypertension: Continue home medication BPs now controlled (6) DVT prophylaxis: Lovenox 40mg daily SQ (7) Discharge planning issues: PT and OT eval's Dispo-likely home tomorrow, doing well Subjective Pt feeling much better. Is quite talkative. Is having a burning sensation around her incision an dnoted some redness of the skin. SHe denies CP or SOB. She tolerated advancement of her diet to low fiber for dinner. She had a hard BM this AM and is passing flatus. I discussed her case with Surgery Review of Systems Review of Systems: All systems reviewed & are unremarkable except as noted in HPI & below Physical Exam Constitutional: WD/WN, vitals as above Eyes: + anicteric sclerae ENMT: external ear and nose normal, oropharynx normal Neck: trachea midline, no thyromegaly Respiratory: normal respiratory effort, lungs clear to auscultation Cardiovascular: RRR, no murmur, no edema Gastrointestinal (Abdomen): Inspection/Auscultation: + abdomen abnormal to inspection (incision with sruthi in place, small amount of mild erythema to rt of umb.) and abdomen not distended Percussion/Palpation: + abdomen tender (over incision site, otherwise none) and abdomen soft; no guarding and abdomen not rigid Musculoskeletal: Extremities: extremities normal to inspection; no cyanosis and no clubbing Skin: no rashes, warm and dry Neurologic: moves all extremities and awake; no focal motor deficits Psychiatric: Orientation: alert and oriented x 3 Results & Data Vital Signs (Past 12 Hours) Vital Signs Temp Pulse Pulse Resp BP BP Pulse Ox 10/05/19 16:05 36.5 C 81 18 142/82 H 96 10/05/19 10:40 36.6 C 78 16 122/76 94 10/05/19 07:42 36.4 C L 81 18 166/93 H 92 Laboratory Results 10/05/19 10/05/19 Range/Units 04:56 04:56 WBC 7.38 (4.8-10.8) K/uL RBC 4.10 L (4.2-5.4) M/uL Hgb 13.2 (12.0-16.0) g/dL Hct 41.6 (37-47) % MCV 101.5 H (80-100) fL MCH 32.2 (25-34) pg MCHC 31.7 L (32-36) g/dL RDW Std Deviation 47.6 H (36.4-46.3) fL RDW Coeff of Ginger 12.8 (11.5-14.5) % Plt Count 244 (130-400) K/uL MPV 9.7 (7.4-10.4) fL Immature Gran % (Auto) 0.1 % Neut % (Auto) 62.8 % Lymph % (Auto) 27.9 % [place] % (Auto) 6.8 % Eos % (Auto) 2.0 % Baso % (Auto) 0.4 % Immature Gran # (Auto) 0.01 (0.00-0.02) K/uL Neut # (Auto) 4.63 (1.4-6.5) K/uL Lymph # (Auto) 2.06 (1.2-3.4) K/uL [place] # (Auto) 0.50 (0.11-0.59) K/uL Eos # (Auto) 0.15 (0-0.5) K/uL Baso # (Auto) 0.03 (0-0.2) K/uL Sodium 143 (136-145) mmol/L Potassium 3.6 (3.5-5.1) mmol/L Chloride 106 (98-107) mmol/L Carbon Dioxide 31 (21-32) mmol/L Anion Gap 6.0 (3-11) BUN 5 L (7-18) mg/dl Creatinine 0.55 L (0.6-1.2) mg/dl Est Cr Clr Drug Dosing 104.0 ml/min Est GFR ( Amer) 113.3 Est GFR (Non-Af Amer) 97.7 BUN/Creatinine Ratio 9.8 L (10-20) Glucose 85 (70-99) mg/dl Calcium 9.1 (8.5-10.1) mg/dl Phosphorus 3.6 D (2.5-4.9) mg/dl Magnesium 2.0 (1.8-2.4) mg/dl Total Bilirubin 0.6 (0.2-1) mg/dl AST 8 L (15-37) U/L ALT 8 L (12-78) U/L Alkaline Phosphatase 67 (45-117) U/L Total Protein 7.1 (6.4-8.2) gm/dl Albumin 3.5 (3.4-5.0) gm/dl Globulin 3.6 (2.5-4.0) gm/dl Albumin/Globulin Ratio 1.0 (0.9-2) PG Care Time/CCT Total # of Minutes Spent Total Time Spent with Patient: Total time spent is greater than 50% in coordination of care (as documented) at patient's floor/unit and/or counseling patient: (1) Hypertension Hypertension type: essential hypertension Qualified Code(s): I10 - Essential (primary) hypertension
[2019-10-05] MEDS: MIRTAZAPINE TAB 15 MG TAB PO SCH (20:31)
[2019-10-05] MEDS: cephALEXin 500 MG CAP PO SCH (20:32)
[2019-10-05] MEDS: CARBIDOPA/LEVODOPA 25-250 1 EA TAB PO SCH (20:32)
[2019-10-06] MEDS: OXYCODONE HCL IR 5 MG TAB (IMMEDIATE RELEASE) PO PRN (03:07)
[2019-10-06] MEDS: ACETAMINOPHEN 500 MG TAB PO PRN ×2 (03:07→12:14)
[2019-10-06 05:11] LABS: Basophils # (auto) 0.01 K/uL (0-0.2); Basophils % (auto) 0.2 %; Eosinophils # (auto) 0.15 K/uL (0-0.5); Eosinophils % (auto) 2.8 %; Hematocrit (blood only) 36.8 % (37-47); Lymphocytes # (auto) 1.51 K/uL (1.2-3.4); Lymphocytes % (auto) 28.1 %; Mean Corpuscular Hgb Conc 32.6 g/dL (32-36); Mean Corpuscular Volume 98.1 fL (80-100); Mean Platelet Volume 9.1 fL (7.4-10.4); Monocytes # (auto) 0.47 K/uL (0.11-0.59); Monocytes % (auto) 8.8 %; Neutrophils # (auto) 3.23 K/uL (1.4-6.5); Neutrophils % (auto) 60.1 %; Platelet Count 237 K/uL (130-400); RDW Coefficient of Variation 12.7 % (11.5-14.5); Red Blood Count 3.75 M/uL (4.2-5.4); White Blood Count 5.37 K/uL (4.8-10.8)
[2019-10-06 05:45] LABS: BUN Creatinine Ratio 20.7 (10-20); Calcium 8.7 mg/dl (8.5-10.1); Creatinine Clr Calc Pharmacy 116.8 ml/min; Est GFR (African American) 117.7; Est GFR (Non-African American) 101.5; Potassium 3.5 mmol/L (3.5-5.1)
--- NOTE | 2019-10-06 09:43 | Surgery Progress Note ---
Date of Service October 06, 2019 Assessment & Plan (1) Small bowel obstruction: POD # 3 s/p ex lap, resection of two mesenteric nodules. No evidence of bowel obstruction or adhesions intraoperatively. -vitals stable other than hypertensive, afebrile, no leukocytosis - pain post op at incision site improved - + return of bowel function - no n/v, tolerating low fiber diet Mild incisional erythema, stable this morning, not spreading, no induration or fluctuance. No drainage from incision Plan: Continue low fiber diet continue ambulation continue pain management as needed continue PO Keflex, recommend 7 day course Colace BID given hard stool Medical management for HTN Doing well from surgical standpoint, could consider discharge if medically stable f/u surgical office in 1-2 weeks Reviewed pathology with patient, mesenteric nodules without tumor showing follicular hyperplasia. Dr. Stratton has seen pt, agrees with above Subjective very tired, not getting sleep pain at incision site is better today no n/v passing gas and another bowel movement this morning tolerated low fiber diet for dinner last night Physical Exam Constitutional: WD/WN, vitals as above no acute distress Gastrointestinal (Abdomen): Inspection/Auscultation: abdomen normal to inspection; abdomen not distended Percussion/Palpation: + abdomen tender (mild at incision site) and abdomen soft; no guarding and abdomen not rigid Skin: no rashes, warm and dry + incision (sruthi intact, erythem of middle of incision , not spreading, no induratio) Psychiatric: A+Ox3, euthymic affect Results & Data Vital Signs (Past 12 Hours) Vital Signs Temp Pulse Pulse Resp BP Pulse Ox 10/06/19 07:38 36.5 C 59 L 16 171/80 H 97 10/05/19 23:13 36.5 C 78 16 156/86 H 94 Laboratory Results 10/06/19 10/06/19 Range/Units 04:59 04:59 WBC 5.37 (4.8-10.8) K/uL RBC 3.75 L (4.2-5.4) M/uL Hgb 12.0 (12.0-16.0) g/dL Hct 36.8 L (37-47) % MCV 98.1 (80-100) fL MCH 32.0 (25-34) pg MCHC 32.6 (32-36) g/dL RDW Std Deviation 45.0 (36.4-46.3) fL RDW Coeff of Ginger 12.7 (11.5-14.5) % Plt Count 237 (130-400) K/uL MPV 9.1 (7.4-10.4) fL Immature Gran % (Auto) 0.0 % Neut % (Auto) 60.1 % Lymph % (Auto) 28.1 % [place] % (Auto) 8.8 % Eos % (Auto) 2.8 % Baso % (Auto) 0.2 % Immature Gran # (Auto) 0.00 (0.00-0.02) K/uL Neut # (Auto) 3.23 (1.4-6.5) K/uL Lymph # (Auto) 1.51 (1.2-3.4) K/uL [place] # (Auto) 0.47 (0.11-0.59) K/uL Eos # (Auto) 0.15 (0-0.5) K/uL Baso # (Auto) 0.01 (0-0.2) K/uL Sodium 140 (136-145) mmol/L Potassium 3.5 (3.5-5.1) mmol/L Chloride 108 H (98-107) mmol/L Carbon Dioxide 26 (21-32) mmol/L Anion Gap 6.0 (3-11) BUN 10 D (7-18) mg/dl Creatinine 0.49 L (0.6-1.2) mg/dl Est Cr Clr Drug Dosing 116.8 ml/min Est GFR ( Amer) 117.7 Est GFR (Non-Af Amer) 101.5 BUN/Creatinine Ratio 20.7 H (10-20) Glucose 99 (70-99) mg/dl Calcium 8.7 (8.5-10.1) mg/dl
[2019-10-06] MEDS: HydrALAZINE 10 MG TAB PO SCH (09:54)
[2019-10-06] MEDS: cloNIDine HCl 0.1 MG TAB PO SCH (09:54)
[2019-10-06] MEDS: DULOXETINE HCL 30 MG CAP PO SCH (09:54)
[2019-10-06] MEDS: cephALEXin 500 MG CAP PO SCH ×2 (09:55→12:14)
[2019-10-06] MEDS: ENOXAPARIN INJ 40 MG/0.4 ML SYR SQ SCH (09:55)
[2019-10-06] MEDS: POTASSIUM CHLORIDE 20 MEQ TABCR PO SCH (09:55)
[2019-10-06] MEDS: GABAPENTIN 600 MG TAB PO SCH (09:55)
[2019-10-06] MEDS: AMLODIPINE BESYLATE 5 MG TAB PO SCH (09:56)
[2019-10-06] MEDS: LISINOPRIL 20 MG TAB PO SCH (09:56)
[2019-10-06] MEDS: PANTOprazole 40 MG TAB PO SCH (09:56)
[2019-10-06] MEDS: DOCUSATE SODIUM 100 MG CAP PO SCH (10:04)
--- NOTE | 2019-10-06 11:29 | Discharge Summary ---
Date of Service October 06, 2019 Admission HPI Per Admitting Provider Patient is a 68yo F significant PMH listed below who presented with a three day h/o nausea/vomiting and associated worsening abdominal distension and severe abdominal pain. She also complains of dysuria x 1 month. In the ER she was found to have a mildly elevated WBC of 14K, hypokalemia of 3.2. CT abdo revealed SBO. Patient clinically with distended abdomen. Given morphine 4mg x 2 in ER as well as 0.5 ativan prior to NGT placement, which patient tolerated well. PMH significant for "terminal" cancer s/p craniectomy (skull/brain mets?) with unknown primary. Pt seeing oncology in [place]. States she has not started any radiation or chemo as she is expected to have special testing with them to determine where the primary source is. Other PMH: anxiety/depression, chronic pain, CVA, HLD, OA, HTN, COPD, brain aneurysm. Principal Diagnosis Small bowel obstruction Discharge Exam Constitutional WD/WN, vitals as above Eyes + anicteric sclerae Neck trachea midline, no thyromegaly Respiratory normal respiratory effort, lungs clear to auscultation Cardiovascular RRR, no murmur, no edema Gastrointestinal (Abdomen) Inspection/Auscultation: + abdomen abnormal to inspection (incision with sruthi in place, small amount of mild erythema much improved) and abdomen not distended Percussion/Palpation: + abdomen tender (over incision site, otherwise none) and abdomen soft; no guarding and abdomen not rigid Musculoskeletal Extremities: extremities normal to inspection; no cyanosis and no clubbing Skin no rashes, warm and dry Neurologic moves all extremities and awake; no focal motor deficits Psychiatric Orientation: alert and oriented x 3 Eye Contact: good eye contact Discharge Data Allergies Allergy/AdvReac Type Severity Reaction Status Date / Time bee venom protein (honey bee) Allergy Intermediate "I PASS Verified 10/02/19 00:14 OUT." nicotine Allergy Intermediate skin Verified 10/02/19 00:14 irritation bupropion Allergy Unknown unknown Verified 10/02/19 00:14 codeine Allergy Unknown unknown - Verified 10/02/19 00:14 TOLERATES PERCOCET Sulfa (Sulfonamide Allergy Unknown CAN'T Verified 10/02/19 00:14 Antibiotics) REMEMBER morphine AdvReac Intermediate CAN Verified 10/02/19 00:14 TOLERATE SMALL DOSES. hydromorphone [From Dilaudid] AdvReac Unknown TOLERATES Verified 10/02/19 00:14 SMALL DOSES ONLY Consultations 10/01/19 23:54 ED Decision to Admit Stat 10/02/19 02:11 Consult Case Management - Discharge Planning Routine Consult General Surgery Routine 10/03/19 18:24 Consult Neurology Routine Procedures Performed Operation Date: 10/03/19 08:30 Actual Procedures p Exploratory Laparotomy, Biopsy of Mesentery Nodule(Not Applicable) - Rajwinder Garcia MD Ordered Studies 10/01/19 22:44 CT abd pelvis wo con Urgent Hospital Course (1) Small bowel obstruction: Initially had NG tube to intermittent suction - drained 2730 mL green bile preoperatively. NGT removed on 10/03 Now POD#3 s/p ex-lap for SBO Ex-lap on 10/03 with complete resolution of SBO, 2 mesenteric nodules found and removed for path review, no adhesions noted Question if SBO was from decreased bowel motility due to high doses of Sinemet which was held on admission Path shows no tumor in the 2 nodules removed -is passing flatus, having multiple BMs, distension now reoslved -tolerating low fiber diet -with mild wound infection--> started on keflex by Surgery and will finish out 7 day course after discharge -continue pain control prn -will give small supply of oxycodone, can take tylenol -Greatly appreciate Surgery management -encouraged ambulation -f/u with SUrgery and with restrictions on activity as per Surgeon (2) Status post craniectomy: 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 Follow-up with Dr. Jernigan with thyroid ultrasound and dotatate scan planned (3) Neuroendocrine tumor: As above (4) Restless leg syndrome: With a long h/o restless leg syndrome. Was on large amount of Sinemet for restless leg syndrome for many years-was taking 7 tabs a day of the 25/100mg tabs. No symptoms of Parkinson's disease on exam without Sinemet. -appreciate Neurology consult-recommends restarting usual home doses of Sinemet, however after further discussion with Neuro by phone, decided to only give 2 tabs of SInemet as a standing order at bedtime in case Sinemet high doses contributed to bowel motility issue -she is doing very well on this dose (5) Hypertension: Continue home medication BPs now controlled (6) Wound infection: much improved with keflex x 24 hours-continue 7 day course after discharge -f/u with SUrgery (7) DVT prophylaxis: Lovenox 40mg daily SQ (8) Discharge planning issues: Dispo-doing very well, stable for dc to home Total Time Total Time Spent Total Time Spent (In Minutes): 35 min Total Time Includes: Examination of the Patient, Discharge Planning, Medication Reconciliation and Communication With Other Providers (Surgery PA) Discharge Plan Discharge Items Patient Disposition: Home - Self-Care Reason For Visit: SBO Discharge Diagnosis: Small bowel obstruction Condition on Discharge: Good Goals: You have been hospitalized for an urgent problem which required surgery. During your stay at [facility], we have made an effort to correct the problem that brought you to the hospital while keeping you as comfortable as possible. Surgery and medications were used to bring your condition under control and your discharge instructions will include directions for any medications you should take after leaving the hospital. Please make sure to follow the advice of your surgeon regarding follow up with the surgeon and with your primary care provider. Activity: As commented below Non-emergency contact: Primary Care Provider and Surgeon Call non-emergency contact if: you have any medication questions, your symptoms worsen, your pain is not controlled, your pain is worsening, your pain is unusual for you, your temperature is above 101, your wound has increased redness, your wound has increased drainage and your wound pain has increased Follow-up/Referrals: Yelena Keita MD [Primary Care Provider] - 10/12/19 2:00 pm (follow up appointment with your primary care physician) Diet: Heart Healthy and Low Fiber Addtl Attending Provider Instructions: Please keep your follow up appointments with your Oncologist and see your PCP after discharge as scheduled for you. Please follow up with the Surgeon as directed. You should continue to take the keflex antibiotic for 6 more days as prescribed. Pending Studies at Discharge: No Stand-Alone Forms: My [facility] Medications and DC Order Prescriptions: New cephalexin 500 mg Capsule 500 mg PO QID Qty: 24 RF: 0 Continued hydralazine 10 mg tablet 10 mg PO TID Qty: 90 RF: 5 hydrochlorothiazide 25 mg tablet 25 mg PO DAILY Qty: 30 RF: 3 duloxetine 30 mg capsule,delayed release(DR/EC) 30 mg PO DAILY RF: 0 potassium chloride 20 mEq tablet extended release 20 meq PO DAILY RF: 0 clonidine HCl 0.1 mg tablet 0.2 mg PO BID Qty: 120 RF: 5 omeprazole 20 mg tablet,delayed release (DR/EC) 20 mg PO DAILY Qty: 30 RF: 5 acetaminophen [Tylenol Extra Strength] 500 mg Tablet 1,000 mg PO QID PRN (Reason: Pain) RF: 0 fluticasone propionate 50 mcg/actuation [place],Suspension 2 sprays [place] DAILY PRN (Reason: allergy symptoms) Qty: 1 RF: 0 ondansetron 4 mg tablet,disintegrating 4 mg PO Q8H PRN (Reason: nausea and vomiting) Qty: 30 RF: 0 lisinopril 20 mg Tablet 20 mg PO QAM RF: 0 amlodipine 5 mg Tablet 5 mg PO QAM RF: 0 gabapentin 600 mg tablet 600 mg PO TID RF: 0 Changed mirtazapine 30 mg tablet 30 mg PO HS Qty: 0 RF: 0 carbidopa-levodopa [Sinemet] 25-250 mg tablet 2 tab PO HS Qty: 0 RF: 0 docusate sodium 100 mg Capsule 100 mg PO BID Qty: 30 RF: 0 Discontinued oxycodone 5 mg capsule 5 mg PO .COMPLEX RF: 0 clonazepam 1 mg tablet 0.5 - 1 mg PO DIRECTED RF: 0 morphine 15 mg tablet 15 mg PO Q6H PRN (Reason: pain) Qty: 10 RF: 0 Discharge Orders: Discharge Order (Routine); Ordered 10/06/19 Ordered By: Odessa Hough Admission Data Admit Date/Time: 10/02/19 01:14 Attending Provider: Odessa Hough Admit Provider: Chloe Conway Primary Care Provider: Yelena Keita Other Providers: Kameron Wise ; Rajwinder Garcia ; Subhash Ponce
== END 2019-10-06 14:00 | disposition home or self-care (01) | DRG 357 ==
LOC: ED 22:15 → 2S 10-02 01:14 → SUATTDRO 10-02 01:14 → 2S 10-02 01:53 → 3W 10-03 09:53

== ENCOUNTER 2021-01-11 10:15 | Inpatient (IN) ==
[2021-01-11] MEDS ORDERED: ONDANSETRON INJ 2 MG/ML 2 ML VIAL IV STA (10:25)
[2021-01-11] MEDS ORDERED: MoRPHine SULFATE 2 MG/ML CARP IV STA (10:25)
--- NOTE | 2021-01-11 10:34 | Emergency Department Note ---
History of Present Illness General Chief complaint: Fall Time Seen by Provider: 01/11/21 10:16 Source: patient History of Present Illness Provider complaint: Syncope and right foot pain Onset (ago): hour(s) Location: foot and right Radiation: non-radiation Severity: severe Exacerbated By: + movement Associated symptoms: + headaches and + syncope; no chest pain, no cough, no fever/chills, no nausea/vomiting and no shortness of breath This is a 70-year-old female with a history of terminal brain cancer presenting with a syncopal episode today. The patient states that she has some occasional foot weakness due to her tumor. This morning she was getting up at 5 AM and she caught her foot on the floor and this caused her excruciating pain to the foot and then she passed out. She does not know how long she was out. She states that every time she tried to get up she would feel extremely lightheaded and passed out again. She was later found by a van service who came to pick her up for an appointment. They called EMS. She complains of severe pain to her right foot. It is worse with any sort of movement. She also complains of a headache which she states is chronic due to her brain tumor. She did not have the he adache prior to the syncopal episode but states that she has been unable to take her 15 mg of morphine and so her headache started after that. She denies any neck pain or any other injury from the fall. She denies back pain or hip pain or upper extremity pain or pain to the left lower extremity. She denies having any chest discomfort or pain, shortness of breath, palpitations, abdominal pain, vomiting, diarrhea, urinary symptoms or black or bloody stools. He denies any fever or cough or cold symptoms. She does state that she has to urinate. Home Medications Medication Instructions Recorded Confirmed Type acetaminophen [Tylenol Extra 1,000 mg PO QID PRN 06/02/19 01/11/21 History Strength] duloxetine 30 mg capsule,delayed 30 mg PO DAILY #30 cap 02/21/20 01/11/21 Rx release fluticasone propionate 50 2 sprays [place] DAILY PRN #1 box 05/11/20 01/11/21 Rx mcg/actuation nasal spray,suspension gabapentin 600 mg tablet 600 mg PO TID #90 tab 06/05/20 01/11/21 Rx albuterol sulfate 90 mcg/actuation 2 puff INHALATION Q6H PRN #8.5 g 08/04/20 01/11/21 Rx aerosol inhaler carbidopa 25 mg-levodopa 250 mg 1 tab PO TID #270 tab 08/21/20 01/11/21 Rx tablet clonidine HCl 0.1 mg tablet 0.2 mg PO BID #120 tab 10/16/20 01/11/21 Rx amlodipine 5 mg tablet 5 mg PO DAILY #30 tab 10/23/20 01/11/21 Rx solifenacin 5 mg tablet 5 mg PO DAILY #30 tab 10/23/20 01/11/21 Rx omeprazole 20 mg tablet,delayed 20 mg PO DAILY #30 tab 11/07/20 01/11/21 Rx release hydralazine 10 mg tablet 10 mg PO TID #90 tab 11/20/20 01/11/21 Rx Lift Chair 1 ea .ROUTE ONCE #1 ea 12/05/20 Rx hydrochlorothiazide 25 mg tablet 25 mg PO DAILY #30 tab 12/05/20 01/11/21 Rx morphine 30 mg PO .Q4-6HRS PRN 01/11/21 01/11/21 History trazodone 150 mg PO HS 01/11/21 01/11/21 History Allergies Allergy/AdvReac Type Severity Reaction Status Date / Time bee venom protein (honey bee) Allergy Intermediate "I PASS Verified 01/11/21 13:10 OUT." nicotine Allergy Intermediate skin Verified 01/11/21 13:10 irritation bupropion Allergy Unknown unknown Verified 01/11/21 13:10 codeine Allergy Unknown unknown - Verified 01/11/21 13:10 TOLERATES PERCOCET Sulfa (Sulfonamide Allergy Unknown CAN'T Verified 01/11/21 13:10 Antibiotics) REMEMBER morphine AdvReac Intermediate CAN Verified 01/11/21 13:10 TOLERATE SMALL DOSES. hydromorphone [From Dilaudid] AdvReac Unknown TOLERATES Verified 01/11/21 13:10 SMALL DOSES ONLY Past Med/Surg History Medical History Allergic rhinitis Aneurysm HX OF 15 YEARS AGO. Aneurysm of basilar artery Arthritis Benign lipomatous tumor COPD (chronic obstructive pulmonary disease) Depression Emphysema lung Generalized osteoarthritis of multiple sites GERD (gastroesophageal reflux disease) History of anesthesia reaction PT STATES THAT SHE WOKE UP TWICE DURING PREVIOUS COLONOSCOPY AND WAS ADVISED TO ALERT STAFF OF THIS FOR FUTURE PROCEDURES. History of cancer of vulva HTN (hypertension) (01/06/15) Hx SBO Hyperlipidemia Limited mobility Lumbago Mixed anxiety and depressive disorder (11/04/11) Neuroendocrine tumor Occipital neuralgia Parkinsons Self-harm Spinal stenosis Stomach ulcer Stroke Surgical History H/O exploratory laparotomy History of spinal surgery LUMBAR FUSION History of surgery REMOVAL OF RIGHT LABIA FOLLOWING DX OF VULVA CANCER S/P excision of lipoma Status post craniectomy Status post right knee replacement Family History Mother , Mother in her 90s of a stroke. Depression Hypertension Anxiety Stroke Sister Depression Hypertension Cerebral aneurysm Anxiety Father , in his mid to later 40s of an [place] Hypertension Myocardial infarction Cardiac disorder Anxiety Other Family history non-contributory Social History Smoking Status: Current every day smoker Cigarettes Per Day: 1 pp/3 weeks; Number of Years Since Quit: 2; Second Hand Exposure: No; Do You Dip or Chew Tobacco: No; Tobacco Cessation Education Requested by Patient: No Hx Alcohol Use: No Hx Substance Use: No Preferred Language: Georgian Communication Ability: Effective Visual Impairment: Limited Hearing Ability: Normal Traffic Lieutenant Required: No Beliefs That Will Affect Care: None marital status: / Current Living Situation: Alone Current Living Situation Comment: sister current occupational status: disabled 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 and A total of 10 systems reviewed and were otherwise negative Physical Exam Vital Signs Vital Signs - 24 hr 01/11/21 10:22 01/11/21 10:26 01/11/21 10:32 Temperature 36.6 C Temperature Source Oral Pulse Rate - Lying Pulse Rate - Sitting Pulse Rate 87 90 86 Pulse Rate from SpO2 Sensor Pulse Rhythm Respiratory Rate 30 H 18 24 Blood Pressure - Lying Blood Pressure - Sitting Blood Pressure 149/80 H 149/80 H Blood Pressure Mean 103 103 Pulse Oximetry 92 Oxygen Delivery Method Room Air Oxygen Flow Rate Sepsis Recent Fever Within 48 Hours No Sepsis New/Unexplained Change in Mental Status No Sepsis Action Taken by Nursing No Action Required Oxygen Flow Rate - Titration Pulse Oximetry Post Tiitration 01/11/21 10:41 01/11/21 10:42 01/11/21 11:00 Temperature Temperature Source Pulse Rate - Lying 90 Pulse Rate - Sitting 88 Pulse Rate 86 87 Pulse Rate from SpO2 Sensor 86 86 Pulse Rhythm Respiratory Rate 30 H 25 H Blood Pressure - Lying 149/80 H Blood Pressure - Sitting 139/78 Blood Pressure 139/78 141/71 H Blood Pressure Mean 98 94 Pulse Oximetry 91 90 Oxygen Delivery Method Oxygen Flow Rate Sepsis Recent Fever Within 48 Hours Sepsis New/Unexplained Change in Mental Status Sepsis Action Taken by Nursing Oxygen Flow Rate - Titration Pulse Oximetry Post Tiitration 01/11/21 11:30 01/11/21 11:45 01/11/21 12:00 Temperature Temperature Source Pulse Rate - Lying Pulse Rate - Sitting Pulse Rate 85 81 83 Pulse Rate from SpO2 Sensor 86 Pulse Rhythm Regular Respiratory Rate 28 H 16 30 H Blood Pressure - Lying Blood Pressure - Sitting Blood Pressure 142/71 H 141/68 H Blood Pressure Mean 94 92 Pulse Oximetry 90 95 Oxygen Delivery Method Nasal Cannula Oxygen Flow Rate 9 Sepsis Recent Fever Within 48 Hours Sepsis New/Unexplained Change in Mental Status Sepsis Action Taken by Nursing Oxygen Flow Rate - Titration 3 Pulse Oximetry Post Tiitration 95 01/11/21 12:30 Temperature Temperature Source Pulse Rate - Lying Pulse Rate - Sitting Pulse Rate 76 Pulse Rate from SpO2 Sensor 76 Pulse Rhythm Respiratory Rate 18 Blood Pressure - Lying Blood Pressure - Sitting Blood Pressure Blood Pressure Mean Pulse Oximetry 97 Oxygen Delivery Method Oxygen Flow Rate Sepsis Recent Fever Within 48 Hours Sepsis New/Unexplained Change in Mental Status Sepsis Action Taken by Nursing Oxygen Flow Rate - Titration Pulse Oximetry Post Tiitration Constitutional: Vital signs reviewed. Eyes: Pupils are equal round reactive to light. Conjunctiva are noninjected. ENT: Pharynx is clear without erythema or exudate. Mucous membranes are moist. No midline tenderness to the cervical spine. Respiratory: Clear to auscultation bilaterally. Breath sounds are equal bilaterally. Cardiovascular: Regular rate and rhythm. No rubs or gallops. GI: Soft, nondistended and nontender. Bowel sounds are present. Musculoskeletal: Tenderness and bruising to the right forefoot without deformity. Capillary refill is less than 2 seconds in the toes. Dorsalis pedis pulses palpable. No tenderness to the ankle, tib-fib, knee or bilateral hips. Integumentary: No cyanosis. or jaundice. Neurologic: The patient is awake and alert. Cranial nerves II-XII are intact. Motor is 5 out of 5 all extremities, although difficult to assess the right foot secondary to pain. Sensation is intact to light touch all extremities. Normal speech. No pronator drift. Tremors in both hands bilaterally. Psychiatric: Normal affect. Not anxious appearing. Course Administered Medications Lactated Ringer's (Lr) 1,000 mls @ 100 mls/hr IV .Q10H ONE Stop: 01/12/21 00:21 Last Admin: 01/11/21 16:15 Dose: 100 mls/hr Documented by: [id number] Morphine Sulfate (Morphine Sulfate Ir 15 Mg Tab (Immediate Release)) 30 mg PO Q6H PRN PRN Reason: Pain Stop: 01/25/21 15:07 Last Admin: 01/11/21 16:14 Dose: 30 mg Documented by: [id number] Discontinued Medications Cefepime HCl (Maxipime) 2,000 mg in 20 mls @ 5 mls/min IV NOW STA; Protocol Stop: 01/11/21 12:29 Last Admin: 01/11/21 12:48 Dose: 5 mls/min Documented by: [id number] Morphine Sulfate (Morphine Sulfate 2 Mg/Ml Carp) 2 mg IV NOW STA Stop: 01/11/21 10:26 Last Admin: 01/11/21 10:47 Dose: 2 mg Documented by: [id number] Morphine Sulfate (Morphine Sulfate Ir 15 Mg Tab (Immediate Release)) 15 mg PO NOW STA Stop: 01/11/21 12:19 Last Admin: 01/11/21 12:49 Dose: 15 mg Documented by: [id number] Ondansetron HCl (Ondansetron Inj 2 Mg/Ml 2 Ml Vial) 4 mg IV NOW STA Stop: 01/11/21 10:26 Last Admin: 01/11/21 10:47 Dose: 4 mg Documented by: [id number] Medical Decision Making Differential Diagnosis Vague syncope, orthostatic hypotension, dysrhythmia, anemia, intracranial hemorrhage, foot fracture Medical Records Attestation: I reviewed the patient's medical records. I did perform a limited focused review of portions of the patient's old chart on the electronic medical record. The patient has had no recent pertinent visits to this hospital. Home Medications Current Medication List: was personally reviewed by me Laboratory Data Attestation: I reviewed the patient's lab results. Result diagrams: 01/11/21 09:50 01/11/21 09:50 Lab Results 01/11/21 01/11/21 01/11/21 Range/Units 09:50 09:50 09:50 WBC 14.62 H (4.8-10.8) K/uL RBC 4.27 (4.2-5.4) M/uL Hgb 13.2 (12.0-16.0) g/dL Hct 41.7 (37-47) % MCV 97.7 (80-100) fL MCH 30.9 (25-34) pg MCHC 31.7 L (32-36) g/dL RDW Std Deviation 50.8 H (36.4-46.3) fL RDW Coeff of Ginger 14.2 (11.5-14.5) % Plt Count 279 (130-400) K/uL MPV 9.8 (7.4-10.4) fL Immature Gran % (Auto) 0.1 % Neut % (Auto) 87.7 % Lymph % (Auto) 4.3 % [place] % (Auto) 7.7 % Eos % (Auto) 0.1 % Baso % (Auto) 0.1 % Neut # (Auto) 12.80 H (1.4-6.5) K/uL Lymph # (Auto) 0.63 L (1.2-3.4) K/uL [place] # (Auto) 1.13 H (0.11-0.59) K/uL Eos # (Auto) 0.02 (0-0.5) K/uL Baso # (Auto) 0.02 (0-0.2) K/uL Immature Gran # (Auto) 0.02 (0.00-0.02) K/uL PT 9.9 (9.0-12.0) Seconds INR 1.0 (0.9-1.1) APTT 25.5 (21.0-31.0) Seconds PTT Ratio 1.0 Sodium 139 (136-145) mmol/L Potassium 3.5 (3.5-5.1) mmol/L Chloride 103 (98-107) mmol/L Carbon Dioxide 32 (21-32) mmol/L Anion Gap 4.0 (3-11) BUN 12 (7-18) mg/dl Creatinine 0.58 L (0.6-1.2) mg/dl Est Cr Clr Drug Dosing 102.1 ml/min Est GFR ( Amer) 109.8 Est GFR (Non-Af Amer) 94.7 BUN/Creatinine Ratio 20.1 H (10-20) Glucose 101 H (70-99) mg/dl Calcium 8.7 (8.5-10.1) mg/dl Magnesium 1.7 L (1.8-2.4) mg/dl Total Bilirubin 0.4 (0.2-1) mg/dl AST 8 L (15-37) U/L ALT 17 (12-78) U/L Alkaline Phosphatase 68 (45-117) U/L Total Creatine Kinase 51 (26-192) U/L Troponin I 0.017 (0-0.045) ng/ml Total Protein 6.6 (6.4-8.2) gm/dl Albumin 3.4 (3.4-5.0) gm/dl Globulin 3.2 (2.5-4.0) gm/dl Albumin/Globulin Ratio 1.1 (0.9-2) TSH 0.908 (0.300-4.500) uIu/ml Prolactin ng/ml COVID-19 Eval Order SARS-CoV-2 (PCR) (Negative) Influenza Type A (PCR) (Neg) Influenza Type B (PCR) (Neg) RSV (RT-PCR) (Neg) 01/11/21 01/11/21 01/11/21 Range/Units 09:50 12:16 12:16 WBC (4.8-10.8) K/uL RBC (4.2-5.4) M/uL Hgb (12.0-16.0) g/dL Hct (37-47) % MCV (80-100) fL MCH (25-34) pg MCHC (32-36) g/dL RDW Std Deviation (36.4-46.3) fL RDW Coeff of Ginger (11.5-14.5) % Plt Count (130-400) K/uL MPV (7.4-10.4) fL Immature Gran % (Auto) % Neut % (Auto) % Lymph % (Auto) % [place] % (Auto) % Eos % (Auto) % Baso % (Auto) % Neut # (Auto) (1.4-6.5) K/uL Lymph # (Auto) (1.2-3.4) K/uL [place] # (Auto) (0.11-0.59) K/uL Eos # (Auto) (0-0.5) K/uL Baso # (Auto) (0-0.2) K/uL Immature Gran # (Auto) (0.00-0.02) K/uL PT (9.0-12.0) Seconds INR (0.9-1.1) APTT (21.0-31.0) Seconds PTT Ratio Sodium (136-145) mmol/L Potassium (3.5-5.1) mmol/L Chloride (98-107) mmol/L Carbon Dioxide (21-32) mmol/L Anion Gap (3-11) BUN (7-18) mg/dl Creatinine (0.6-1.2) mg/dl Est Cr Clr Drug Dosing ml/min Est GFR ( Amer) Est GFR (Non-Af Amer) BUN/Creatinine Ratio (10-20) Glucose (70-99) mg/dl Calcium (8.5-10.1) mg/dl Magnesium (1.8-2.4) mg/dl Total Bilirubin (0.2-1) mg/dl AST (15-37) U/L ALT (12-78) U/L Alkaline Phosphatase (45-117) U/L Total Creatine Kinase (26-192) U/L Troponin I (0-0.045) ng/ml Total Protein (6.4-8.2) gm/dl Albumin (3.4-5.0) gm/dl Globulin (2.5-4.0) gm/dl Albumin/Globulin Ratio (0.9-2) TSH (0.300-4.500) uIu/ml Prolactin 9.36 ng/ml COVID-19 Eval Order CovFluRsv at [facility] SARS-CoV-2 (PCR) NEGATIVE (Negative) Influenza Type A (PCR) Negative (Neg) Influenza Type B (PCR) Negative (Neg) RSV (RT-PCR) Negative (Neg) 01/11/21 Range/Units 13:58 WBC (4.8-10.8) K/uL RBC (4.2-5.4) M/uL Hgb (12.0-16.0) g/dL Hct (37-47) % MCV (80-100) fL MCH (25-34) pg MCHC (32-36) g/dL RDW Std Deviation (36.4-46.3) fL RDW Coeff of Ginger (11.5-14.5) % Plt Count (130-400) K/uL MPV (7.4-10.4) fL Immature Gran % (Auto) % Neut % (Auto) % Lymph % (Auto) % [place] % (Auto) % Eos % (Auto) % Baso % (Auto) % Neut # (Auto) (1.4-6.5) K/uL Lymph # (Auto) (1.2-3.4) K/uL [place] # (Auto) (0.11-0.59) K/uL Eos # (Auto) (0-0.5) K/uL Baso # (Auto) (0-0.2) K/uL Immature Gran # (Auto) (0.00-0.02) K/uL PT (9.0-12.0) Seconds INR (0.9-1.1) APTT (21.0-31.0) Seconds PTT Ratio Sodium (136-145) mmol/L Potassium (3.5-5.1) mmol/L Chloride (98-107) mmol/L Carbon Dioxide (21-32) mmol/L Anion Gap (3-11) BUN (7-18) mg/dl Creatinine (0.6-1.2) mg/dl Est Cr Clr Drug Dosing ml/min Est GFR ( Amer) Est GFR (Non-Af Amer) BUN/Creatinine Ratio (10-20) Glucose (70-99) mg/dl Calcium (8.5-10.1) mg/dl Magnesium (1.8-2.4) mg/dl Total Bilirubin (0.2-1) mg/dl AST (15-37) U/L ALT (12-78) U/L Alkaline Phosphatase (45-117) U/L Total Creatine Kinase 37 (26-192) U/L Troponin I (0-0.045) ng/ml Total Protein (6.4-8.2) gm/dl Albumin (3.4-5.0) gm/dl Globulin (2.5-4.0) gm/dl Albumin/Globulin Ratio (0.9-2) TSH (0.300-4.500) uIu/ml Prolactin ng/ml COVID-19 Eval Order SARS-CoV-2 (PCR) (Negative) Influenza Type A (PCR) (Neg) Influenza Type B (PCR) (Neg) RSV (RT-PCR) (Neg) Imaging Data Radiologist's Impression: HEAD CT NONCONTRAST CT DOSE: HISTORY: syncope/brain tumor eval for bleed TECHNIQUE: Multiaxial CT images of the head were performed without the use of intravenous contrast. Automated exposure control was utilized for this study. A dose lowering technique was utilized adhering to the principles of ALARA. Comparison: Head CT 06/02/2019. Findings: The paranasal sinuses and mastoid air cells are clear. Postoperative changes consistent with a prior right occipital craniectomy with overlying metallic plate. No calvarial fractures identified. The ventricles and sulci are within normal limits. There is no mass, hematoma, midline shift, or acute infarct. Impression: Prior right occipital craniectomy with an overlying metallic plate. Otherwise, no acute intracranial abnormality. ACT 112: Negative or not required by law. Electronically signed by: Fam Maldonado M.D. 01/11/2021 12:07 PM Dictated: 01/11/21 1203 Transcribed: 01/11/21 1203 XR chest 1V portable CLINICAL HISTORY: syncope COMPARISON STUDY: No previous studies for comparison. FINDINGS: The heart is borderline enlarged. There is no failure. There are left perihilar and lower lung zone airspace opacity suspicious for a pneumonia. Clinical and radiographic follow-up is recommended. There are no significant pleural effusions.[ IMPRESSION: Left mid and lower lung zone airspace opacities suspicious for pneumonia. Clinical and radiographic follow-up is recommended. ACT 112: Negative or not required by law. Electronically signed by: Rich Wallace M.D. 01/11/2021 11:01 AM Dictated: 01/11/21 1100 Transcribed: 01/11/21 1100 XR foot RT min 3V routine CLINICAL HISTORY: Right foot pain COMPARISON: None. DISCUSSION: There is a suspected fracture involving the base of the second metatarsal. There is widening of the first intermetatarsal distance suggesting a Lisfranc injury. Calcifications are present projected over the dorsal aspect of the metatarsal phalangeal joints. IMPRESSION: Conventional radiographic findings highly suggestive of a Lisfranc fracture subluxation. ACT 112: Negative or not required by law. Electronically signed by: Rich Wallace M.D. 01/11/2021 11:06 AM Dictated: 01/11/21 1102 Transcribed: 01/11/[address] OF THE CERVICAL SPINE CLINICAL HISTORY: Neck pain status post trauma COMPARISON STUDY: 06/02/2019 CT DOSE: 1006.39 mGy.cm TECHNIQUE: CT scan of the cervical spine was performed from the skull base to the thoracic inlet. Images are reviewed in the axial, sagittal, and coronal planes. IV contrast was not administered for this examination. A dose lowering technique was utilized adhering to the principles of ALARA. FINDINGS: There are postsurgical changes of a prior right occipital craniotomy The visualized portions of the lung apices reveal no evidence of pneumothorax. There are small right apical blebs The prevertebral soft tissues are normal. No fractures or subluxations are visualized. There are multilevel degenerative changes The study is motion degraded. IMPRESSION: No evidence of acute fracture or traumatic subluxation. ACT 112: Negative or not required by law. Electronically signed by: Rich Wallace M.D. 01/11/2021 11:47 AM Dictated: 01/11/21 1145 Transcribed: 01/11/21 1145 ECG Data Attestation: I personally reviewed and interpreted this ECG as follows: Indication: + syncope Rate (beats per minute): 86 Rhythm: + normal sinus ECG [place]: + Normal ECG ST segments: no ST elevation ECG Findings: + Other (Baseline artifact); no PVCs Head Trauma GCS Score: 15 MDM Narrative I did evaluate the patient as noted above. The patient is presenting with multiple syncopal episodes today. She states that she hurt her foot which gave her extreme pain and then she passed out. She then states that when she woke up she try to get up and got extremely lightheaded and passed out again. She was found by the paratransit driver who had come to pick her up for chemotherapy. She complains of pain to her right foot. She also states she has a headache which she chronically gets due to her brain tumor and that she believes that it is bothering her because she was unable to take her morphine today. I did place an order for continuous cardiac monitoring. The monitor showed normal sinus rhythm at a rate of 70 bpm. I did order and personally review the patient's 12- lead EKG as described above. She has no acute ischemic changes. I did order and personally reviewed the images of the patient's chest and right foot x-rays as described above. She appears to have left-sided pneumonia on chest x-ray. She initially told me that she did not have any cough or cold symptoms. When I asked her again after the x-ray she did state that she has been coughing today. She was placed in respiratory isolation. Covid testing was obtained. Blood cultures were ordered and I did treat her empirically with cefepime 2 g IV. COVID-19 testing later came back negative and she was taken off of isolation. Her foot x-ray shows a Lisfranc fracture as described above. Initially she thought she saw [facility] orth[facility] in the past so I spoke to Dev at [facility] orth[facility] who reviewed the films with Dr. Pardo. Later I found out that she has seen Dr. Pena of [facility] so I spoke to Favian Felix about the case. She was placed in a postop shoe. I did order a urine analysis. She does not have a UTI. I did order and review the patient's blood work as noted in the electronic medical record. Her white count is elevated over 14,000. She is not anemic. Platelet count is within normal limits. Electrolytes, troponin, LFTs and TSH are unremarkable. I did order a CT of the head and cervical spine. I did review the images myself as well as the radiology report as described above. There is no evidence of acute intracranial abnormality or cervical fracture. I did treat the patient with 2 mg of morphine IV and Zofran 4 mg IV. She was also given morphine orally 15 mg IR. I did discuss the test re sults with her. She will be hospitalized for further care and evaluation. Orthostatic vital signs were obtained and she did drop only 10 points systolic from lying down to sitting. Obviously she cannot stand up. Impression & Plan Syncope, Pneumonia, Lisfranc fracture, Chronic headache Discharge Plan Visit Data Chief Complaint: Fall ED Provider: Asim Alcala Discharge Problem: Syncope, Pneumonia, Lisfranc fracture, Chronic headache Patient Disposition: Admitted As Inpatient Discharge Instructions Interventions: ED Discharge Assessment Last Done: 01/11/21 14:23
[2021-01-11 10:39] LABS: Basophils # (auto) 0.02 K/uL (0-0.2); Basophils % (auto) 0.1 %; Eosinophils # (auto) 0.02 K/uL (0-0.5); Eosinophils % (auto) 0.1 %; Hematocrit (blood only) 41.7 % (37-47); Hemoglobin 13.2 g/dL (12.0-16.0); Immature Granulocytes # (auto) 0.02 K/uL (0.00-0.02); Immature Granulocytes % (auto) 0.1 %; Lymphocytes # (auto) 0.63 K/uL (1.2-3.4); Lymphocytes % (auto) 4.3 %; Mean Corpuscular Hemoglobin 30.9 pg (25-34); Mean Corpuscular Hgb Conc 31.7 g/dL (32-36); Mean Corpuscular Volume 97.7 fL (80-100); Mean Platelet Volume 9.8 fL (7.4-10.4); Monocytes # (auto) 1.13 K/uL (0.11-0.59); Monocytes % (auto) 7.7 %; Neutrophils % (auto) 87.7 %; Platelet Count 279 K/uL (130-400); RDW Coefficient of Variation 14.2 % (11.5-14.5); RDW Standard Deviation 50.8 fL (36.4-46.3); Red Blood Count 4.27 M/uL (4.2-5.4); White Blood Count 14.62 K/uL (4.8-10.8)
[2021-01-11 10:52] LABS: Partial Thromboplastin Time 25.5 Seconds (21.0-31.0); Prothrombin Time 9.9 Seconds (9.0-12.0)
[2021-01-11 10:57] LABS: Albumin Level 3.4 gm/dl (3.4-5.0); BUN Creatinine Ratio 20.1 (10-20); Calcium 8.7 mg/dl (8.5-10.1); Creatinine Clr Calc Pharmacy 102.1 ml/min; Est GFR (African American) 109.8; Est GFR (Non-African American) 94.7; Magnesium 1.7 mg/dl (1.8-2.4); Potassium 3.5 mmol/L (3.5-5.1)
--- NOTE | 2021-01-11 11:02 | XRay Report ---
XR chest 1V portable CLINICAL HISTORY: syncope COMPARISON STUDY: No previous studies for comparison. FINDINGS: The heart is borderline enlarged. There is no failure. There are left perihilar and lower l michelle zone airspace opacity suspicious for a pneumonia. Clinical and radiographic follow-up is recommen ded. There are no significant pleural effusions.[ IMPRESSION: Left mid and lower lung zone airspace opacities suspicious for pneumonia. Clinical and ra diographic follow-up is recommended. ACT 112: Negative or not required by law. Electronically signed by: Rich Wallace M.D. 01/11/2021 11:01 AM
--- NOTE | 2021-01-11 11:07 | XRay Report ---
XR foot RT min 3V routine CLINICAL HISTORY: Right foot pain COMPARISON: None. DISCUSSION: There is a suspected fracture involving the base of the second metatarsal. There is widen ing of the first intermetatarsal distance suggesting a Lisfranc injury. Calcifications are present pr ojected over the dorsal aspect of the metatarsal phalangeal joints. IMPRESSION: Conventional radiographic findings highly suggestive of a Lisfranc fracture subluxation. ACT 112: Negative or not required by law. Electronically signed by: Rich Wallace M.D. 01/11/2021 11:06 AM
[2021-01-11 11:08] LABS: Albumin Globulin Ratio 1.1 (0.9-2); Bilirubin,Total 0.4 mg/dl (0.2-1); Globulin 3.2 gm/dl (2.5-4.0); Thyroid Stimulating Hormone 0.908 uIu/ml (0.300-4.500); Total Protein 6.6 gm/dl (6.4-8.2); Troponin I 0.017 ng/ml (0-0.045)
--- NOTE | 2021-01-11 11:49 | CT Scan Report ---
CT OF THE CERVICAL SPINE CLINICAL HISTORY: Neck pain status post trauma COMPARISON STUDY: 06/02/2019 CT DOSE: 1006.39 mGy.cm TECHNIQUE: CT scan of the cervical spine was performed from the skull base to the thoracic inlet. Bre ges are reviewed in the axial, sagittal, and coronal planes. IV contrast was not administered for thi s examination. A dose lowering technique was utilized adhering to the principles of ALARA. FINDINGS: There are postsurgical changes of a prior right occipital craniotomy The visualized portions of the lung apices reveal no evidence of pneumothorax. There are small right apical blebs The prevertebral soft tissues are normal. No fractures or subluxations are visualized. There are multilevel degenerative changes The study is motion degraded. IMPRESSION: No evidence of acute fracture or traumatic subluxation. ACT 112: Negative or not required by law. Electronically signed by: Rich Wallace M.D. 01/11/2021 11:47 AM
[2021-01-11] MEDS ORDERED: MoRPHine SULFATE CR 15 MG TABCR PO STA (12:02)
--- NOTE | 2021-01-11 12:09 | CT Scan Report ---
HEAD CT NONCONTRAST CT DOSE: HISTORY: syncope/brain tumor eval for bleed TECHNIQUE: Multiaxial CT images of the head were performed without the use of intravenous contrast. A utomated exposure control was utilized for this study. A dose lowering technique was utilized adheri ng to the principles of ALARA. Comparison: Head CT 06/02/2019. Findings: The paranasal sinuses and mastoid air cells are clear. Postoperative changes consistent wit h a prior right occipital craniectomy with overlying metallic plate. No calvarial fractures identifie d. The ventricles and sulci are within normal limits. There is no mass, hematoma, midline shift, or a cute infarct. Impression: Prior right occipital craniectomy with an overlying metallic plate. Otherwise, no acute intracranial abnormality. ACT 112: Negative or not required by law. Electronically signed by: Fam Maldonado M.D. 01/11/2021 12:07 PM
[2021-01-11] MEDS ORDERED: MoRPHine SULFATE IR 15 MG TAB (IMMEDIATE RELEASE) PO STA (12:18)
[2021-01-11] MEDS ORDERED: CEFEPIME 2,000 MG/20 ML VIAL IV STA (12:26)
[2021-01-11 13:01] LABS: Influenza A virus by PCR Negative (Neg); Influenza B virus by PCR Negative (Neg); RSV by PCR Negative (Neg); SARS CoV2 RNA(COVID-19) InHosp NEGATIVE (Negative)
--- NOTE | 2021-01-11 14:09 | History & Physical Report ---
Date of Service January 11, 2021 Assessment & Plan (1) Syncope: Feel that patient presentation at this time is more consistent with cardiac in nature versus neurological. DDX would include seizure or metastatic disease. - Patient originally declined brain MRI, but would be OK with MRI if cardiac workup was non revealing - admit to telemetry evaluate for dysrhythmias - hold sedating medications and slowly re-introduce blood pressure medications - ECHO to evaluate heart function and valve function with systollic murmur - Frequency is concerning with patient living at home for now. - case management consult assist with home care needs please - PT/OT consult while in house- (2) Neuroendocrine tumor: As per HPI - Patient was being picked up today to come get her Octreotide injection - Will coordinate with [facility] and administer in house if this is still the plan. - MRI as above to evaluate for intracranial process if needed, as patient originally declined - Do not feel that this is seizure related, but will be able to get more information while in house (3) Hypertension: Patient is on interesting polypharmacy for her blood pressure control - Will continue her amlodipine at this time - Optimize dosing while in house on conventional agents, while slowly re- introducing hydralazine and Clonidine. - Hold HCTZ, Clonidine, Hydralazine (4) Pneumonia: Left lower lobe infiltrate, elevated WBC, no cough, no sputum, new oxygenation requirement, no pain on inspiration - Given dose of Cefepime in the ER----> will change to Rocephin 1GM IV in the morning follow. - Follow blood cultures and biomarkers (5) Restless leg syndrome: -Hold gabapentin today- patient has been on this for a while, however may be contributing to her balance/passing out - Continue Cymbalta - Continue her Sinemet (6) Chronic pain: Morphine and Tylenol, can give IV PRN over the top. (7) COPD (chronic obstructive pulmonary disease): No acute needs - Continue home albuterol (8) DVT prophylaxis: -Lovenox 40 daily, with SCD - Diet regular - Code status full - Dispo telemetry History of Present Illness Primary Care Provider: Yelena Keita MD 70 YOF with past medical history of bran cancer (neuroendocrine) with unknown primary, T6-T8 blastic lesions, vulvectomy for vulvar cancer, chronic pain, restless leg, htn, overactive bladder, asthma The patient comes to the emergency room via EMS today after being found on ground at home. Patient reports that she got up this morning, ambulated to the kitchen, saw flashes in her vision and passed out. When she awoke she noticed that her head and right foot hurt. She endorses that she remembers feeling faint when trying to put weight on her foot and possibly passing out again. The patient endorses that she has been "passing out for years"; however, the interval has been increasing. Mrs. Caro states that she passes out 3-5 times per week for the past 2 weeks and that the "flashes" in her vision have also increased during that time. Patient does not note any other associated or pre-syncopal symptoms, and denies vertigo or confusion prior to or after passing out. Denies that she has ever lost bowel or bladder function. Cancer history reviewed note (02/23/2020). Patient is to be on Octreotide injections that were started on 01/14/20 and has been inconsistent with getting those done as well as not following up. [facility] PET/CT in 2019 and no obvious mass or lesion was suggestive of a primary lesion, but does not appear to have followed up with her PET scan. She is on morphine for her spine, neck, and head pain. Allergies Allergy/AdvReac Type Severity Reaction Status Date / Time bee venom protein (honey bee) Allergy Intermediate "I PASS Verified 01/11/21 13:10 OUT." nicotine Allergy Intermediate skin Verified 01/11/21 13:10 irritation bupropion Allergy Unknown unknown Verified 01/11/21 13:10 codeine Allergy Unknown unknown - Verified 01/11/21 13:10 TOLERATES PERCOCET Sulfa (Sulfonamide Allergy Unknown CAN'T Verified 01/11/21 13:10 Antibiotics) REMEMBER morphine AdvReac Intermediate CAN Verified 01/11/21 13:10 TOLERATE SMALL DOSES. hydromorphone [From Dilaudid] AdvReac Unknown TOLERATES Verified 01/11/21 13:10 SMALL DOSES ONLY Home Medications Medication Instructions Recorded Confirmed Type acetaminophen [Tylenol Extra 1,000 mg PO QID PRN 06/02/19 01/11/21 History Strength] duloxetine 30 mg capsule,delayed 30 mg PO DAILY #30 cap 02/21/20 01/11/21 Rx release fluticasone propionate 50 2 sprays [place] DAILY PRN #1 box 05/11/20 01/11/21 Rx mcg/actuation nasal spray,suspension gabapentin 600 mg tablet 600 mg PO TID #90 tab 06/05/20 01/11/21 Rx albuterol sulfate 90 mcg/actuation 2 puff INHALATION Q6H PRN #8.5 g 08/04/20 01/11/21 Rx aerosol inhaler carbidopa 25 mg-levodopa 250 mg 1 tab PO TID #270 tab 08/21/20 01/11/21 Rx tablet clonidine HCl 0.1 mg tablet 0.2 mg PO BID #120 tab 10/16/20 01/11/21 Rx amlodipine 5 mg tablet 5 mg PO DAILY #30 tab 10/23/20 01/11/21 Rx solifenacin 5 mg tablet 5 mg PO DAILY #30 tab 10/23/20 01/11/21 Rx omeprazole 20 mg tablet,delayed 20 mg PO DAILY #30 tab 11/07/20 01/11/21 Rx release hydralazine 10 mg tablet 10 mg PO TID #90 tab 11/20/20 01/11/21 Rx Lift Chair 1 ea .ROUTE ONCE #1 ea 12/05/20 Rx hydrochlorothiazide 25 mg tablet 25 mg PO DAILY #30 tab 12/05/20 01/11/21 Rx morphine 30 mg PO .Q4-6HRS PRN 01/11/21 01/11/21 History trazodone 150 mg PO HS 01/11/21 01/11/21 History Past Med/Surg History Medical History Allergic rhinitis Aneurysm HX OF 15 YEARS AGO. Aneurysm of basilar artery Arthritis Benign lipomatous tumor COPD (chronic obstructive pulmonary disease) Depression Emphysema lung Generalized osteoarthritis of multiple sites GERD (gastroesophageal reflux disease) History of anesthesia reaction PT STATES THAT SHE WOKE UP TWICE DURING PREVIOUS COLONOSCOPY AND WAS ADVISED TO ALERT STAFF OF THIS FOR FUTURE PROCEDURES. History of cancer of vulva HTN (hypertension) (01/06/15) Hx SBO Hyperlipidemia Limited mobility Lumbago Mixed anxiety and depressive disorder (11/04/11) Neuroendocrine tumor Occipital neuralgia Parkinsons Self-harm Spinal stenosis Stomach ulcer Stroke Surgical History H/O exploratory laparotomy History of spinal surgery LUMBAR FUSION History of surgery REMOVAL OF RIGHT LABIA FOLLOWING DX OF VULVA CANCER S/P excision of lipoma Status post craniectomy Status post right knee replacement Family History Mother , Mother in her 90s of a stroke. Depression Hypertension Anxiety Stroke Sister Depression Hypertension Cerebral aneurysm Anxiety Father , in his mid to later 40s of an MS Hypertension Myocardial infarction Cardiac disorder Anxiety Other Family history non-contributory Social History Smoking Status: Current every day smoker Cigarettes Per Day: 1 pp/3 weeks; Number of Years Since Quit: 2; Second Hand Exposure: No; Do You Dip or Chew Tobacco: No; Tobacco Cessation Education Requested by Patient: No Hx Alcohol Use: No Hx Substance Use: No Preferred Language: Divehi Communication Ability: Effective Visual Impairment: Limited Hearing Ability: Normal Process Control Programmer Required: No Beliefs That Will Affect Care: None marital status: / Current Living Situation: Alone Current Living Situation Comment: sister current occupational status: disabled 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 [employer] Other Information That Helps Us Care for You: No 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) Feels Safe at Home: Yes Safety Concerns: Feels Safe At This Time Assistive Devices: Glasses Review of Systems Review of Systems: REVIEW OF SYSTEMS: Constitutional: No fever, sweats or chills, chronic head and neck pain reported Eyes: No diplopia, no worsening or blurred vision, wears glasses ENT: normal hearing, no trouble swallowing Respiratory: No cough, sputum, dyspnea at rest or on exertion Cardiovascular: No chest pain, tightness or palpitations Abdomen: No pain, nausea, vomiting, diarrhea or constipation Musculoskeletal: (+) pain to right ankle, spine, neck, (-) calf pain, swelling Neurologic: No weakness, numbness/tingling, or normal balance problems Psychiatric: No anxiety or depression Skin: No rash or itch Physical Exam Physical Exam: PHYSICAL EXAM: General: awake, alert, no apparent distress Head: noted tenderness to front left head with no hematoma, noted depression from plate from prior surgical site. ENT: PERRL, EOMI, no pharyngeal exudate, mucous membranes moist Neuro: AAO x 3, speech clear and appropriate, strength intact bilaterally 5/5, sensation intact and equal all extremities and, no pronator drift, no ataxia, no tremors at rest, Chest: equal rise and fall of the chest, no accessory muscle use, no heaves or thirlls, Clear to auscultation, on 2 LNC Cardiac: Regular rate and rhythm, telemetry reviewed, skin warm dry, cap refill <3 seconds, peripheral pusles +2 no JVD, systolic left sternal border murmur, no JVD, no edema GI: NABS x 4 quadrants, soft, nontender to palpation, no rebound, guarding or tenderness : Spontaneously voiding, no pain, no CVA tenderness, Extremities: Normal inspection, no peripheral edema or erythema, calfs nontender to palpation Psych: Normal mood and affect Skin: no rash or erythema Results & Data Results & Data ([facility]) Vital Signs (Past 12 Hours) Vital Signs Temp Pulse Resp BP Pulse Ox 01/11/21 12:30 76 18 97 01/11/21 12:00 83 30 H 141/68 H 01/11/21 11:45 81 16 95 01/11/21 11:30 85 28 H 142/71 H 90 01/11/21 11:00 87 25 H 141/71 H 90 01/11/21 10:42 86 30 H 139/78 91 01/11/21 10:32 86 24 01/11/21 10:26 36.6 C 90 18 149/80 H 92 01/11/21 10:22 87 30 H 149/80 H Laboratory Results Abnormal lab results 01/11/21 01/11/21 Range/Units 09:50 09:50 WBC 14.62 H (4.8-10.8) K/uL MCHC 31.7 L (32-36) g/dL RDW Std Deviation 50.8 H (36.4-46.3) fL Neut # (Auto) 12.80 H (1.4-6.5) K/uL Lymph # (Auto) 0.63 L (1.2-3.4) K/uL [place] # (Auto) 1.13 H (0.11-0.59) K/uL Creatinine 0.58 L (0.6-1.2) mg/dl BUN/Creatinine Ratio 20.1 H (10-20) Glucose 101 H (70-99) mg/dl Magnesium 1.7 L (1.8-2.4) mg/dl AST 8 L (15-37) U/L Diagnostic Findings HEAD CT NONCONTRAST CT DOSE: HISTORY: syncope/brain tumor eval for bleed TECHNIQUE: Multiaxial CT images of the head were performed without the use of intravenous contrast. Automated exposure control was utilized for this study. A dose lowering technique was utilized adhering to the principles of ALARA. Comparison: Head CT 06/02/2019. Findings: The paranasal sinuses and mastoid air cells are clear. Postoperative changes consistent with a prior right occipital craniectomy with overlying metallic plate. No calvarial fractures identified. The ventricles and sulci are within normal limits. There is no mass, hematoma, midline shift, or acute infarct. Impression: Prior right occipital craniectomy with an overlying metallic plate. Otherwise, no acute intracranial abnormality XR chest 1V portable CLINICAL HISTORY: syncope COMPARISON STUDY: No previous studies for comparison. FINDINGS: The heart is borderline enlarged. There is no failure. There are left perihilar and lower lung zone airspace opacity suspicious for a pneumonia. Clinical and radiographic follow-up is recommended. There are no significant pleural effusions.[ IMPRESSION: Left mid and lower lung zone airspace opacities suspicious for pneumonia. Clinical and radiographic follow-up is recommended. XR foot RT min 3V routine CLINICAL HISTORY: Right foot pain COMPARISON: None. DISCUSSION: There is a suspected fracture involving the base of the second metatarsal. There is widening of the first intermetatarsal distance suggesting a Lisfranc injury. Calcifications are present projected over the dorsal aspect of the metatarsal phalangeal joints. IMPRESSION: Conventional radiographic findings highly suggestive of a Lisfranc fracture subluxation. Medications Administered Discontinued Medications Cefepime HCl (Maxipime) 2,000 mg in 20 mls @ 5 mls/min IV NOW STA; Protocol Stop: 01/11/21 12:29 Last Admin: 01/11/21 12:48 Dose: 5 mls/min Documented by: [id number] Morphine Sulfate (Morphine Sulfate 2 Mg/Ml Carp) 2 mg IV NOW STA Stop: 01/11/21 10:26 Last Admin: 01/11/21 10:47 Dose: 2 mg Documented by: [id number] Morphine Sulfate (Morphine Sulfate Ir 15 Mg Tab (Immediate Release)) 15 mg PO NOW STA Stop: 02/25/21 12:19 Last Admin: 01/11/21 12:49 Dose: 15 mg Documented by: [id number] Ondansetron HCl (Ondansetron Inj 2 Mg/Ml 2 Ml Vial) 4 mg IV NOW STA Stop: 01/11/21 10:26 Last Admin: 01/11/21 10:47 Dose: 4 mg Documented by: [id number] ECG Additional Comments: NSR non specific T wave abnormality, PVC resolved from previous Code Status & VTE Plan Code Status Full CODE DVT: Lovenox 40 daily Supervising Physician Co-Signing Physician Notes I supervised GUDELIA Mae on this admission. I interviewed and examined the patient independently of him. The plan is as written in his note except for any following changes/exceptions: Pleasant 70yo F w/ hx of metastatic neuroendocrine tumor of unknown origin, but thought to be lung. She presents today after a syncopal episode. She reports she was walking in her kitchen when she quickly blacked out. She reports that she had some brief visual sparkles/flashes prior to passing out, but no dizziness, lightheadedness, or other presyncopal feelings. No chest pain, palpitations. No changes in smell or taste. She woke up on the floor after hitting her head, and she reports that she had right foot pain. This has been going on for about 2 weeks, 3x a week. She has not previously sought help for this. Will get echo, monitor on telemetry, and get orthopedics consult for her right ankle fracture. Given falls/syncope at home and now with right ankle fracture will get PT/OT. For her tumor, we discussed with oncology who ordered her octreotide injection, but felt full consult was not needed. PG Care Time/CCT Total # of Minutes Spent Total Time Spent with Patient: Total time spent is greater than 50% in coordination of care (as documented) at patient's floor/unit and/or counseling patient: Coding Level of Care Code 06562 Initial Inpt Care Lvl 3 Diagnoses Syncope R55 Syncope type: unspecified Neuroendocrine tumor D3A.8 Hypertension I10 Hypertension type: essential hypertension Pneumonia J18.9 Restless leg syndrome G25.81 Chronic pain G89.29 Chronic pain type: other chronic pain COPD (chronic obstructive pulmonary disease) J44.9 COPD type: unspecified COPD DVT prophylaxis Z29.9 (1) Chronic pain Chronic pain type: other chronic pain Qualified Code(s): G89.29 - Other chronic pain (2) Syncope Syncope type: unspecified Qualified Code(s): R55 - Syncope and collapse (3) COPD (chronic obstructive pulmonary disease) COPD type: unspecified COPD Qualified Code(s): J44.9 - Chronic obstructive pulmonary disease, unspecified (4) Hypertension Hypertension type: essential hypertension Qualified Code(s): I10 - Essential (primary) hypertension
[2021-01-11] MEDS ORDERED: LACTATED RINGER'S 1,000 ML IV ONE (14:22)
[2021-01-11] MEDS ORDERED: OCTREOTIDE ACETATE 100 MCG/ML VIAL SQ ONE (15:06)
[2021-01-11] MEDS ORDERED: ACETAMINOPHEN 325 MG TAB PO PRN (15:08)
[2021-01-11] MEDS ORDERED: ALBUTEROL HFA 8 GM INHALER INH PRN (15:08)
[2021-01-11] MEDS ORDERED: FLUTICASONE PROPIONATE NA SPR 16 GM BTL NAE PRN (15:08)
[2021-01-11] MEDS ORDERED: ONDANSETRON INJ 2 MG/ML 2 ML VIAL IV PRN (15:08)
[2021-01-11] MEDS ORDERED: POLYETHYLENE (MIRALAX) 17 GM PACK PO PRN (15:08)
[2021-01-11] MEDS ORDERED: ACETAMINOPHEN 500 MG TAB PO PRN (15:28)
[2021-01-11 15:45] LABS: Appearance Urine Clear (Clear); Bilirubin Urine Negative (Negative); Blood Urine Negative (Negative); Color Urine Yellow; Glucose Urine UA Negative (Negative); Ketones Urine Negative (Negative); Leukocyte Esterase Urine Negative (Negative); Nitrite Urine Negative (Negative); Protein Urine Negative (Negative); Specific Gravity Urine 1.013 (1.000-1.030); Urobilinogen Urine Negative (Negative); pH Urine 6.5 (4.5-7.5)
[2021-01-11 15:54] LABS: Bacteria Urine Automated Negative (Negative); Cast Urine Automated 0 /lpf (0-5); Epithelial Cell Urine Auto 0-5 /lpf (0-5); RBC Urine Automated 0-4 /hpf (0-4); WBC Urine Automated 0 /hpf (0-5)
[2021-01-11] MEDS: MoRPHine SULFATE IR 15 MG TAB (IMMEDIATE RELEASE) PO PRN ×2 (16:14→22:58)
--- NOTE | 2021-01-11 16:53 | Electrocardiogram Report ---
Test Reason : Blood Pressure : / mmHG Vent. Rate : 086 BPM Atrial Rate : 086 BPM P-R Int : 170 ms QRS Dur : 084 ms QT Int : 366 ms P-R-T Axes : 055 020 038 degrees QTc Int : 437 ms Normal sinus rhythm Abnormal ECG When compared with ECG of 27-AUG-2019 17:00, Premature ventricular complexes are no longer Present T wave inversion no longer evident in Anterior leads Confirmed by Michael Umanzor ([id number]) on 01/11/2021 4:53:33 PM Referred By: REFERRED SELF Confirmed By:Johnnie Umanzor
[2021-01-11] MEDS: ENOXAPARIN INJ 40 MG/0.4 ML SYR SQ SCH (17:02)
[2021-01-11] MEDS: CARBIDOPA/LEVODOPA 25-250 1 EA TAB PO SCH ×2 (17:03→19:49)
[2021-01-11] MEDS: traZODone HCL 50 MG TAB PO SCH (19:49)
[2021-01-11] MEDS: PANTOprazole 40 MG TAB PO SCH (19:50)
[2021-01-11] MEDS: cefTRIAXone SODIUM 1,000 MG in DEXTROSE 5% 50 ML IV SCH (19:50)
[2021-01-12 07:08] LABS: BUN Creatinine Ratio 17.6 (10-20); Calcium 8.2 mg/dl (8.5-10.1); Creatinine Clr Calc Pharmacy 129.3 ml/min; Est GFR (African American) 122.1; Est GFR (Non-African American) 105.3; Magnesium 1.8 mg/dl (1.8-2.4); Potassium 3.5 mmol/L (3.5-5.1)
[2021-01-12] MEDS: amLODIPine BESYLATE 5 MG TAB PO SCH (07:44)
[2021-01-12] MEDS: CARBIDOPA/LEVODOPA 25-250 1 EA TAB PO SCH ×3 (07:44→20:25)
[2021-01-12] MEDS: DULoxetine HCL 30 MG CAP PO SCH (07:44)
[2021-01-12] MEDS: PANTOprazole 40 MG TAB PO SCH (08:40)
[2021-01-12] MEDS: MoRPHine SULFATE IR 15 MG TAB (IMMEDIATE RELEASE) PO PRN (08:40)
[2021-01-12] MEDS ORDERED: AZITHROMYCIN 500 MG in DEXTROSE 5% 250 ML IV STA (08:43)
[2021-01-12] MEDS ORDERED: LORazepam 1 MG TAB PO STA (09:32)
--- NOTE | 2021-01-12 10:09 | Orthopedic Consultation ---
Date of Consultation January 12, 2021 Assessment & Plan (1) Lisfranc fracture: Case discussed with Dr. Roach. He has reviewed the films. We will plan to get a CT scan done this morning of the right foot. We will order a firm cast shoe for her to wear when she is out of bed. We discussed that she needs to remain nonweightbearing at this time or foot down to balance. She refused ice on her foot or ankle secondary to the fact that it makes her feel cold all over. We discussed that she will need to keep the leg elevated on 1 or 2 pillows to help with swelling. Pain control as written. We will review the CT scan when done. No likely surgical intervention during this stay. Patient will be able to follow-up in Dr. Roach's office after discharge. History of Present Illness Reason for Consultation: Right second metatarsal fracture at the base with possible Lisfranc injury Attending Physician: Odessa Hough MD History of Present Illness 70-year-old female with past medical history of bran cancer (neuroendocrine) with unknown primary, T6-T8 blastic lesions, vulvectomy for vulvar cancer, chronic pain, restless leg, htn, overactive bladder, asthma. Patient was ambulating in her household yesterday. She apparently reached the kitchen and began having flashes in her vision and she ended up passing out. When she came to, she was having some pain in and around her head and also in her right foot. Trying to put weight on the right foot was very painful. She was eventually brought to the emergency room here and was seen by the staff. X-rays were taken and was felt that she had a base of the second metatarsal fracture with question of Lisfranc injury at the first and second metatarsals. The patient was admitted by [facility] to further work-up her syncope. We have been asked to see her for her right foot injury. Allergies Allergy/AdvReac Type Severity Reaction Status Date / Time bee venom protein (honey bee) Allergy Intermediate "I PASS Verified 01/11/21 13:10 OUT." nicotine Allergy Intermediate skin Verified 01/11/21 13:10 irritation bupropion Allergy Unknown unknown Verified 01/11/21 13:10 codeine Allergy Unknown unknown - Verified 01/11/21 13:10 TOLERATES PERCOCET Sulfa (Sulfonamide Allergy Unknown CAN'T Verified 01/11/21 13:10 Antibiotics) REMEMBER morphine AdvReac Intermediate CAN Verified 01/11/21 13:10 TOLERATE SMALL DOSES. hydromorphone [From Dilaudid] AdvReac Unknown TOLERATES Verified 01/11/21 13:10 SMALL DOSES ONLY Home Medications Medication Instructions Recorded Confirmed Type acetaminophen [Tylenol Extra 1,000 mg PO QID PRN 06/02/19 01/11/21 History Strength] duloxetine 30 mg capsule,delayed 30 mg PO DAILY #30 cap 02/21/20 01/11/21 Rx release fluticasone propionate 50 2 sprays [place] DAILY PRN #1 box 05/11/20 01/11/21 Rx mcg/actuation nasal spray,suspension gabapentin 600 mg tablet 600 mg PO TID #90 tab 06/05/20 01/11/21 Rx albuterol sulfate 90 mcg/actuation 2 puff INHALATION Q6H PRN #8.5 g 08/04/20 01/11/21 Rx aerosol inhaler carbidopa 25 mg-levodopa 250 mg 1 tab PO TID #270 tab 08/21/20 01/11/21 Rx tablet clonidine HCl 0.1 mg tablet 0.2 mg PO BID #120 tab 10/16/20 01/11/21 Rx amlodipine 5 mg tablet 5 mg PO DAILY #30 tab 10/23/20 01/11/21 Rx solifenacin 5 mg tablet 5 mg PO DAILY #30 tab 10/23/20 01/11/21 Rx omeprazole 20 mg tablet,delayed 20 mg PO DAILY #30 tab 11/07/20 01/11/21 Rx release hydralazine 10 mg tablet 10 mg PO TID #90 tab 11/20/20 01/11/21 Rx Lift Chair 1 ea .ROUTE ONCE #1 ea 12/05/20 Rx hydrochlorothiazide 25 mg tablet 25 mg PO DAILY #30 tab 12/05/20 01/11/21 Rx morphine 30 mg PO .Q4-6HRS PRN 01/11/21 01/11/21 History trazodone 150 mg PO HS 01/11/21 01/11/21 History Patient History Medical History Allergic rhinitis Aneurysm HX OF 15 YEARS AGO. Aneurysm of basilar artery Arthritis Benign lipomatous tumor COPD (chronic obstructive pulmonary disease) Depression Emphysema lung Generalized osteoarthritis of multiple sites GERD (gastroesophageal reflux disease) History of anesthesia reaction PT STATES THAT SHE WOKE UP TWICE DURING PREVIOUS COLONOSCOPY AND WAS ADVISED TO ALERT STAFF OF THIS FOR FUTURE PROCEDURES. History of cancer of vulva HTN (hypertension) (01/06/15) Hx SBO Hyperlipidemia Limited mobility Lumbago Mixed anxiety and depressive disorder (11/04/11) Neuroendocrine tumor Occipital neuralgia Parkinsons Self-harm Spinal stenosis Stomach ulcer Stroke Surgical History H/O exploratory laparotomy History of spinal surgery LUMBAR FUSION History of surgery REMOVAL OF RIGHT LABIA FOLLOWING DX OF VULVA CANCER S/P excision of lipoma Status post craniectomy Status post right knee replacement Family History Mother , Mother in her 90s of a stroke. Depression Hypertension Anxiety Stroke Sister Depression Hypertension Cerebral aneurysm Anxiety Father , in his mid to later 40s of an [place] Hypertension Myocardial infarction Cardiac disorder Anxiety Other Family history non-contributory Social History Smoking Status: Current every day smoker Cigarettes Per Day: 1 pp/3 weeks; Number of Years Since Quit: 2; Second Hand Exposure: No; Do You Dip or Chew Tobacco: No; Tobacco Cessation Education Requested by Patient: No Hx Alcohol Use: No Hx Substance Use: No Preferred Language: Serbian Communication Ability: Effective Visual Impairment: Limited Hearing Ability: Normal Director Market Research Required: No Beliefs That Will Affect Care: None marital status: / Current Living Situation: Alone Current Living Situation Comment: sister current occupational status: disabled 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 She seemed somewhat anxious and stated that her foot was very painful when touching it. She has the right lower extremity on a pillow for elevation. On examining the right foot she has some mild swelling noted over the medial aspect with a small area of ecchymosis. She is exquisitely tender on light touch over the dorsum of the foot. She has no pain in her toes on light palpation. She states that her sensation is intact. She is able to move her toes at this time but states that if she tries to do full range of motion of her toes it causes her pain in the dorsum of her foot. She has pain on palpation of her right calcaneus more towards the anterosuperior portion of the calcaneus. She refused to move her ankle at this time secondary to pain in her dorsum of her foot. She has only mild discomfort on palpation of the medial lateral malleolus although there is no swelling and when she describes the pain is at the is near the dorsum of the foot rather than in the ankle. She is nontender above the ankle but this time at the knee and hip. She is able to move the right lower extremity around to adjusted on her pillow that she has the leg elevated on. There appears to be no gross motor or sensory loss at this time. Results & Data ([facility]) Vital Signs (Past 12 Hours) Vital Signs Temp Pulse Pulse Resp BP Pulse Ox 01/12/21 08:00 59 L 01/12/21 07:31 37.1 C 60 18 105/57 L 92 01/12/21 04:48 37.5 C 72 22 127/65 93 01/12/21 00:00 67 01/11/21 22:53 37.3 C 64 20 113/59 L 93 Diagnostic Findings Patient: ELIZABETH BAILEY Date: 01/11/21MR#: [id number]: [address] ID:[id number]: [address]Birth Date: [address] [place] [address] Zip: [place], [place] [address]Cuj: 70Location: EDSex: FRoom/Bed:Att Phy:Diagnosis: FALLPri Phy: Yelena Keita, MDService Date: 01/11/21Fam Phy:Interpreting Phy: Rich Wallace MDAdmit Phy: Ordering Phy: Asim Alcala MD cc: ~ XR foot RT min 3V routine CLINICAL HISTORY: Right foot pain COMPARISON: None. DISCUSSION: There is a suspected fracture involving the base of the second metatarsal. There is widening of the first intermetatarsal distance suggesting a Lisfranc injury. Calcifications are present projected over the dorsal aspect of the metatarsal phalangeal joints. IMPRESSION: Conventional radiographic findings highly suggestive of a Lisfranc fracture subluxation.
--- NOTE | 2021-01-12 10:58 | CT Scan Report ---
CT foot RT wo con HISTORY: 70 years-old Female fx/lisfranc injury acute right foot pain with reported Lisfranc injury. COMPARISON: Right foot radiographs 01/11/2021 TECHNIQUE: Multiple axial CT images of the right foot were obtained without the use of IV contrast. A dditional 3-D images were generated from a separate workstation. A dose lowering technique was used c onsistent with the principals reece GUNTER. FINDINGS: Acute mildly comminuted intra-articular fractures are noted involving the bases of the first, second and third metatarsals with subtle acute nondisplaced intra-articular fracture is also noted involving the base of the fourth metatarsal. There is minimal displacement involving the fracture fragments of the first and second metatarsals with 5 mm cortical depression of the first metatarsal fracture. Acu te slightly comminuted fractures with minimal displacement involves the medial distal aspect of the f irst cuneiform. Subtle acute nondisplaced fracture involves the dorsal cortex of the second cuneiform . Subtle acute nondisplaced fracture involves the lateral cortex of the third cuneiform. The cuboid a nd fifth metatarsals appear intact. There is mild multifocal osteoarthritis. Small to moderate sized enthesophytes of the calcaneus. 4 mm osteochondral defect of the medial talar dome. 7 mm corticated o ssification adjacent to the distal fibula is suggestive of chronic avulsion fracture. There is slight medial subluxation involving the base of the fifth metatarsal. The remaining metatarsal bases appear to be in satisfactory positioning. There is mild widening in the distribution of the Lisfranc articulation with edema and fracture fragm ents noted within this distribution. Tendons and ligaments are not well evaluated by CT technique. Mi ld to moderate dorsal subcutaneous edema. No large hematoma. No joint effusion. IMPRESSION: 1. Acute mildly comminuted intra-articular fractures involve the bases of the first, second and third metatarsals with subtle acute nondisplaced intra-articular fracture involving the base of the fourth metatarsal. 2. Acute slightly comminuted minimally displaced fracture involves the first cuneiform with additiona l subtle fractures of the second and third cuneiforms. 3. Widening of the Lisfranc articulation and with adjacent tiny fracture fragments and soft tissue ed zack is suggestive of Lisfranc ligamentous injury. 4. Mild to moderate dorsal subcutaneous edema. 5. 4 mm osteochondral defect of the medial talar dome. ACT 112: Negative or not required by law. The above report was generated using voice recognition software. It may contain grammatical, syntax o r spelling errors. Electronically signed by: Miky Chaudhari M.D. 01/12/2021 10:56 AM
[2021-01-12] MEDS ORDERED: GADOBUTROL 65ML VIAL IV ONE (11:10)
--- NOTE | 2021-01-12 12:01 | Magnetic Resonance Report ---
MR brain wo/w con HISTORY: 70 years-old Female h/o brain mass,?seizure prior right occipital craniotomy. Acute seizure like activity COMPARISON: Head CT 01/11/2021, brain MRI 09/22/2020 TECHNIQUE: Multiplanar multisequence MRI of the brain was obtained both with and without the use of 7 .0 mL Gadavist FINDINGS: No restricted diffusion to suggest acute or subacute infarct. There is no acute intracranial hemorrha ge, midline shift, intra-axial mass or acute intra-axial collection. 2.2 cm probable arachnoid cyst a djacent to the right frontal lobe redemonstrated on image 17 series 6. Mild age-related involutional changes. Mild to moderate T2/FLAIR hyperintensities throughout the white matter are suggestive of chr onic microvascular ischemic disease. There is no abnormal intra-axial enhancement. Cerebral venous sinuses and major arterial flow voids appear patent. Mastoid air cells are clear. Min imal mucosal thickening of the ethmoid sinuses. The orbits and soft tissues are unremarkable. T1 and T2 hypointense expansile lesions of the left frontal and parietal calvarium are redemonstrated and ap pear unchanged from comparison. Postoperative changes of right occipital craniectomy with nonspecific enhancement of the craniectomy site which appears similar to comparison.. IMPRESSION: 1. No acute intracranial abnormality. 2. No acute or subacute infarct. 3. No abnormal enhancement. 4. Chronic findings as above. ACT 112: Negative or not required by law. The above report was generated using voice recognition software. It may contain grammatical, syntax o r spelling errors. Electronically signed by: Miky Chaudhari M.D. 01/12/2021 12:00 PM
--- NOTE | 2021-01-12 13:02 | Hospitalist Progress Note ---
Date of Service January 12, 2021 Assessment & Plan (1) Syncope: SYncope seems less likely cardiogenic, not orthostatic although did have one documented low BP here. Perhaps vagal from pain in foot but doesn't explain multiple other episodes she describes. Given flashing lights and arm shaking, consider brain lesion or seizures. -Brain MRI checked and unchanged from previous with expansile lesions in left frontal parietal region, no new changes. EEG today is normal but does not rule out seizure activity - telemetry without any dysrhythmias -BP meds on hold from admission except amlodipine-continue to hold clonidine, hydralazine, and HCTZ - holding gabapentin, and consider holding Sinemet (which can cause orthostasis) - ECHO normal, no valvular issues - Frequency is concerning with patient living at home on own and now with foot fracture from syncope -consult Neuro for further evaluation -check orthostatics in AM (2) Neuroendocrine tumor: missed her octreotide dose as outpt discussed with [facility] Oncologist and Pharmacist-ok for delay in getting next dose-will need to be re-ordered for next week -will need f/u appt for injection next week (3) Hypertension: Patient is on interesting polypharmacy for her blood pressure control - Will continue her amlodipine at this time - Hold HCTZ, Clonidine, Hydralazine in case contributing to syncope (4) Pneumonia: Left lower lobe infiltrate, elevated WBC, no cough, no sputum, new oxygenation requirement, no pain on inspiration - Given dose of Cefepime in the ER----> then changed to IV Rocephin 1GM and add azithro - Follow blood cultures unclear if this is true PNA -check CXR, PCT, CBC in AM (5) Restless leg syndrome: -Hold gabapentin today- patient has been on this for a while, however may be contributing to her balance/passing out - Continue Cymbalta - Continue her Sinemet but consider holding await Neuro input (6) Chronic pain: continue Morphine and Tylenol, can give IV PRN breakthrough pain if needed (7) COPD (chronic obstructive pulmonary disease): No acute needs - Continue home albuterol (8) Lisfranc fracture: right foot Lis Franc fracture and multiple base of MT fxs appreciate Ortho consult plan for CAM boot and outpt f/u pain control prn (9) Spinal stenosis: continue home morphine pain meds (10) GERD (gastroesophageal reflux disease): continue PPI (11) Mixed anxiety and depressive disorder: continue trazadone, duloxetine (12) Metatarsal bone fracture: as above (13) DVT prophylaxis: -Lovenox 40 daily, with SCD - Diet regular - Code status full - Dispo telemetry , continued stay, agreeable to rehab at [facility] after discharge Admission and Anticipated Discharge Date Admission Date: January 11, 2021 Subjective Pt reports a long h/o "passing out" but has worsened in frequency the last few days. She also describes right arm shaking and dropping things. She also has had visualization of flashing lights in front of her daily for months and reports a sensation of pulling cobwebs off her face for the last week. Has a mild headache but also hit her head on the floor while crawling yesterday and passing out after breaking her foot. Prior to yesterday's multiple syncopal episodes, she reports numerous occasions of passing out that can occur with lying or sitting or standing, no associated preceding palpitations or chest pain. They usually are preceded though by the arm shaking. Having pain in foot and a lot of anxiety about being in the hospital. Pt also requesting a Nicotine patch I discussed her care with Neuro and Ortho PA today. Tele with NSR, PVCs, rates 60-70s Review of Systems Review of Systems: All systems reviewed & are unremarkable except as noted in HPI & below no CP or SOB, no nausea/vomiting, no dysuria, no constipation or diarrhea Physical Exam Constitutional: WD/WN, vitals as above Eyes: PERRL, conjunctivae normal, anicteric sclerae EOM intact bilaterally ENMT: external ear and nose normal, oropharynx normal Neck: trachea midline, no thyromegaly Respiratory: normal respiratory effort, lungs clear to auscultation Cardiovascular: RRR, no murmur, no edema Chest (Breasts): Chest: normal inspection of chest Gastrointestinal (Abdomen): normal bowel sounds, soft, nontender, no hepatosplenomegaly Musculoskeletal: Extremities: + extremities abnormal to inspection (right foot in cast shoe), no cyanosis and no clubbing Skin: no rashes, warm and dry Neurologic: PERRL, EOMI, accommodation nl, no face palsy, no dysarthria CN's II-XI intact bilaterally, moves all extremities and awake; no focal motor deficits Motor/Sensory: no tremor, normal movement and no sensory deficit Psychiatric: Orientation: alert, oriented x 3 and cooperative Eye Contact: good eye contact Affect: + anxious affect Lymphatic: no lymphedema Results & Data Results & Data ([facility]) Vital Signs (Past 12 Hours) Vital Signs Temp Pulse Pulse Resp BP Pulse Ox 01/12/21 11:40 36.6 C 73 18 123/61 92 01/12/21 08:00 59 L 01/12/21 07:31 37.1 C 60 18 105/57 L 92 01/12/21 04:48 37.5 C 72 22 127/65 93 Laboratory Results 01/12/21 01/12/21 Range/Units 06:09 06:09 Sodium 138 (136-145) mmol/L Potassium 3.5 (3.5-5.1) mmol/L Chloride 103 (98-107) mmol/L Carbon Dioxide 32 (21-32) mmol/L Anion Gap 4.0 (3-11) BUN 7 D (7-18) mg/dl Creatinine 0.42 L (0.6-1.2) mg/dl Est Cr Clr Drug Dosing 129.3 ml/min Est GFR ( Amer) 122.1 Est GFR (Non-Af Amer) 105.3 BUN/Creatinine Ratio 17.6 (10-20) Glucose 115 H (70-99) mg/dl Calcium 8.2 L (8.5-10.1) mg/dl Magnesium 1.8 (1.8-2.4) mg/dl Triglycerides 125 (0-150) mg/dl Cholesterol 149 (0-200) mg/dl LDL Cholesterol, Calc 84 mg/dl VLDL Cholesterol, Calc 25 mg/dl HDL Cholesterol 40 mg/dl Cholesterol/HDL Ratio 4 Hepatitis C Ab Screen Neg (Neg) PG Care Time/CCT Total # of Minutes Spent Total Time Spent with Patient: Total time spent is greater than 50% in coordination of care (as documented) at patient's floor/unit and/or counseling patient: Coding Level of Care Code 93031 Subseq Hosp Care Lvl 3 Diagnoses Syncope R55 Syncope type: unspecified Neuroendocrine tumor D3A.8 Hypertension I10 Hypertension type: essential hypertension Pneumonia J18.9 Restless leg syndrome G25.81 Chronic pain G89.29 Chronic pain type: other chronic pain COPD (chronic obstructive pulmonary disease) J44.9 COPD type: unspecified COPD Lisfranc fracture Spinal stenosis M48.00 GERD (gastroesophageal reflux disease) K21.9 Esophagitis presence: esophagitis presence not specified Mixed anxiety and depressive disorder F41.8 Metatarsal bone fracture S92.309A DVT prophylaxis Z29.9 (1) Chronic pain Chronic pain type: other chronic pain Qualified Code(s): G89.29 - Other chronic pain (2) Syncope Syncope type: unspecified Qualified Code(s): R55 - Syncope and collapse (3) COPD (chronic obstructive pulmonary disease) COPD type: unspecified COPD Qualified Code(s): J44.9 - Chronic obstructive pulmonary disease, unspecified (4) Hypertension Hypertension type: essential hypertension Qualified Code(s): I10 - Essential (primary) hypertension (5) GERD (gastroesophageal reflux disease) Esophagitis presence: esophagitis presence not specified Qualified Code(s): K21.9 - Gastro-esophageal reflux disease without esophagitis
--- NOTE | 2021-01-12 15:08 | Electroencephalogram ---
EEG Procedure Note Date of Service January 12, 2021 Start / End Times Start Time: 1320 End Time: [address] Hough History 70-year-old with history of recurrent syncope question seizures Home Medication List Medication Instructions Recorded Confirmed Type acetaminophen [Tylenol Extra 1,000 mg PO QID PRN 06/02/19 01/11/21 History Strength] duloxetine 30 mg capsule,delayed 30 mg PO DAILY #30 cap 02/21/20 01/11/21 Rx release fluticasone propionate 50 2 sprays [place] DAILY PRN #1 box 05/11/20 01/11/21 Rx mcg/actuation nasal spray,suspension gabapentin 600 mg tablet 600 mg PO TID #90 tab 06/05/20 01/11/21 Rx albuterol sulfate 90 mcg/actuation 2 puff INHALATION Q6H PRN #8.5 g 08/04/20 01/11/21 Rx aerosol inhaler carbidopa 25 mg-levodopa 250 mg 1 tab PO TID #270 tab 08/21/20 01/11/21 Rx tablet clonidine HCl 0.1 mg tablet 0.2 mg PO BID #120 tab 10/16/20 01/11/21 Rx amlodipine 5 mg tablet 5 mg PO DAILY #30 tab 10/23/20 01/11/21 Rx solifenacin 5 mg tablet 5 mg PO DAILY #30 tab 10/23/20 01/11/21 Rx omeprazole 20 mg tablet,delayed 20 mg PO DAILY #30 tab 11/07/20 01/11/21 Rx release hydralazine 10 mg tablet 10 mg PO TID #90 tab 11/20/20 01/11/21 Rx Lift Chair 1 ea .ROUTE ONCE #1 ea 12/05/20 Rx hydrochlorothiazide 25 mg tablet 25 mg PO DAILY #30 tab 12/05/20 01/11/21 Rx morphine 30 mg PO .Q4-6HRS PRN 01/11/21 01/11/21 History trazodone 150 mg PO HS 01/11/21 01/11/21 History Inpatient Medication List Amlodipine Besylate (Amlodipine Besylate 5 Mg Tab) 5 mg PO DAILY [facility] Stop: 02/11/21 08:59 Last Admin: 01/12/21 07:44 Dose: 5 mg Documented by: [id number] Carbidopa/Levodopa (Carbidopa/Levodopa 25-250 1 Ea Tab) 1 tab PO TID [facility] Stop: 02/10/21 15:44 Last Admin: 01/12/21 13:13 Dose: 1 tab Documented by: [id number] Admin: 01/12/21 07:44 Dose: 1 tab Documented by: [id number] Admin: 01/11/21 19:49 Dose: 1 tab Documented by: [id number] Admin: 01/11/21 17:03 Dose: 1 tab Documented by: [id number] Duloxetine HCl (Duloxetine Hcl 30 Mg Cap) 30 mg PO DAILY [facility] Stop: 02/11/21 08:59 Last Admin: 01/12/21 07:44 Dose: 30 mg Documented by: [id number] Enoxaparin Sodium (Enoxaparin Inj 40 Mg/0.4 Ml Syr) 40 mg SQ Q24H [facility] Stop: 02/10/21 15:59 Last Admin: 01/11/21 17:02 Dose: 40 mg Documented by: [id number] Ceftriaxone Sodium 1,000 mg/ (Dextrose) 50 mls @ 100 mls/hr IV Q24H [facility]; Protocol Stop: 01/18/21 20:59 Last Infusion: 01/11/21 20:33 Dose: 0 mls/hr Documented by: [id number] Admin: 01/11/21 19:50 Dose: 100 mls/hr Documented by: [id number] Miscellaneous (Solifenacin [Vesicare] 5 Mg Tablet~ Order Awaiting Action) 1 ea N/A QS [facility] Stop: 02/10/21 15:59 Last Admin: 01/12/21 07:45 Dose: Not Given Documented by: [id number] Admin: 01/12/21 00:29 Dose: Not Given Documented by: [id number] Admin: 01/11/21 17:07 Dose: Not Given Documented by: [id number] Morphine Sulfate (Morphine Sulfate Ir 15 Mg Tab (Immediate Release)) 30 mg PO Q6H PRN PRN Reason: Pain Stop: 01/25/21 15:07 Last Admin: 01/12/21 08:40 Dose: 30 mg Documented by: [id number] Admin: 01/11/21 22:58 Dose: 30 mg Documented by: [id number] Admin: 01/11/21 16:14 Dose: 30 mg Documented by: [id number] Pantoprazole Sodium (Pantoprazole 40 Mg Tab) 40 mg PO DAILY [facility] Stop: 02/11/21 08:59 Last Admin: 01/12/21 08:40 Dose: 40 mg Documented by: [id number] Admin: 01/11/21 19:50 Dose: 40 mg Documented by: [id number] Trazodone HCl (Trazodone Hcl 50 Mg Tab) 150 mg PO HS [facility] Stop: 02/10/21 20:59 Last Admin: 01/11/21 19:49 Dose: 150 mg Documented by: [id number] Discontinued Medications Gadobutrol (Gadobutrol 65ml Vial) 7 ml IV ONCE ONE Stop: 01/12/21 11:11 Last Admin: 01/12/21 11:10 Dose: 7 ml Documented by: [id number] Cefepime HCl (Maxipime) 2,000 mg in 20 mls @ 5 mls/min IV NOW STA; Protocol Stop: 01/11/21 12:29 Last Admin: 01/11/21 12:48 Dose: 5 mls/min Documented by: [id number] Lactated Ringer's (Lr) 1,000 mls @ 100 mls/hr IV .Q10H ONE Stop: 01/12/21 00:21 Last Infusion: 01/12/21 02:00 Dose: 0 mls/hr Documented by: [id number] Admin: 01/11/21 16:15 Dose: 100 mls/hr Documented by: [id number] Azithromycin 500 mg/ Dextrose 255 mls @ 127.5 mls/hr IV NOW STA; Protocol Stop: 01/12/21 10:42 Last Infusion: 01/12/21 09:32 Dose: 0 mls/hr Documented by: [id number] Admin: 01/12/21 09:27 Dose: 127.5 mls/hr Documented by: [id number] Lorazepam (Lorazepam 1 Mg Tab) 1 mg PO NOW STA Stop: 01/12/21 09:33 Last Admin: 01/12/21 09:44 Dose: 1 mg Documented by: [id number] Miscellaneous (Order Awaiting Action) 1 ea N/A QS [facility] Stop: 02/11/21 00:00 Last Admin: 01/12/21 07:45 Dose: Not Given Documented by: [id number] Admin: 01/12/21 00:29 Dose: Not Given Documented by: [id number] Morphine Sulfate (Morphine Sulfate 2 Mg/Ml Carp) 2 mg IV NOW STA Stop: 01/11/21 10:26 Last Admin: 01/11/21 10:47 Dose: 2 mg Documented by: [id number] Morphine Sulfate (Morphine Sulfate Ir 15 Mg Tab (Immediate Release)) 15 mg PO NOW STA Stop: 01/11/21 12:19 Last Admin: 01/11/21 12:49 Dose: 15 mg Documented by: [id number] Ondansetron HCl (Ondansetron Inj 2 Mg/Ml 2 Ml Vial) 4 mg IV NOW STA Stop: 01/11/21 10:26 Last Admin: 01/11/21 10:47 Dose: 4 mg Documented by: [id number] Description This is a 21 electrode EEG with a single channel dedicated to limited EKG. The electrodes were placed in accordance with the International 10-20 system. Interpretation The predominant background activity consists of a very well modulated 8 Hz activity, of up to 75 mV in amplitude,seen symmetrically distributed over the posterior head regions bilaterally. This activity attenuates nicely with eye- opening and other alerting procedures. Photic stimulation was performed and elicited no change in the background activity and no abnormal responses were seen. Hyperventilation was not performed. A mild amount of muscle and movement artifact activity contaminated the recording, but did not hinder interpretation to any significant degree. Throughout the waking portion of the recording, no focal abnormalities, abnormal slow activity, or potentially epileptogenic discharges are seen. The patient entered the drowsy state with no further activation. In summary, this EEG was normal during wakefulness and drowsiness. No focal abnormalities, potentially epileptogenic discharges, or abnormal slow activity was seen. Clinical Correlation The abscence of potentially epileptogenic activity does not exclude a seizure disorder, since interictally, EEGs can be normal. Clinical correlation is required. [facility] EEG Procedure Codes Indication for Procedure (1) Syncope: (2) Neuroendocrine tumor: Neurology Neurology: [id number] EEG include record awake & drowsy
[2021-01-12] MEDS: NICOTINE 21 MG/24 HR TDSY TD SCH (15:34)
[2021-01-12] MEDS: ENOXAPARIN INJ 40 MG/0.4 ML SYR SQ SCH (15:35)
[2021-01-12] MEDS: traZODone HCL 50 MG TAB PO SCH (20:25)
[2021-01-12] MEDS: cefTRIAXone SODIUM 1,000 MG in DEXTROSE 5% 50 ML IV SCH (20:25)
[2021-01-13 06:49] LABS: Basophils # (auto) 0.02 K/uL (0-0.2); Basophils % (auto) 0.2 %; Eosinophils # (auto) 0.11 K/uL (0-0.5); Eosinophils % (auto) 1.3 %; Hematocrit (blood only) 35.6 % (37-47); Hemoglobin 11.3 g/dL (12.0-16.0); Immature Granulocytes # (auto) 0.01 K/uL (0.00-0.02); Immature Granulocytes % (auto) 0.1 %; Lymphocytes # (auto) 1.04 K/uL (1.2-3.4); Lymphocytes % (auto) 11.9 %; Mean Corpuscular Hemoglobin 30.8 pg (25-34); Mean Corpuscular Hgb Conc 31.7 g/dL (32-36); Mean Platelet Volume 9.7 fL (7.4-10.4); Monocytes # (auto) 0.67 K/uL (0.11-0.59); Monocytes % (auto) 7.7 %; Neutrophils % (auto) 78.8 %; Platelet Count 239 K/uL (130-400); RDW Standard Deviation 49.7 fL (36.4-46.3); Red Blood Count 3.67 M/uL (4.2-5.4); White Blood Count 8.75 K/uL (4.8-10.8)
[2021-01-13 07:18] LABS: BUN Creatinine Ratio 11.4 (10-20); Calcium 8.4 mg/dl (8.5-10.1); Creatinine Clr Calc Pharmacy 139.3 ml/min; Est GFR (African American) 125.1; Est GFR (Non-African American) 107.9; Potassium 3.6 mmol/L (3.5-5.1)
--- NOTE | 2021-01-13 07:20 | XRay Report ---
XR chest 1V portable CLINICAL HISTORY: f/u [facility] COMPARISON STUDY: Chest radiograph January 11, 2021. FINDINGS: Lung volumes are normal. There is no pneumothorax or pleural effusion. The left lower lung airspace opacity has mildly improved since exam of January 11, 2021. No evidence for pulmonary edema . Cardiac size is normal. Mediastinal contours are normal. IMPRESSION: Interval improvement in left basilar opacity. This favors resolving pneumonia. Continue radiographic follow-up to ensure resolution is recommended. ACT 112: Negative or not required by law. Electronically signed by: Daryl Keita M.D. 01/13/2021 7:18 AM
[2021-01-13] MEDS: PANTOprazole 40 MG TAB PO SCH (08:21)
[2021-01-13] MEDS: DULoxetine HCL 30 MG CAP PO SCH (08:21)
[2021-01-13] MEDS: amLODIPine BESYLATE 5 MG TAB PO SCH (08:21)
[2021-01-13] MEDS: NICOTINE 21 MG/24 HR TDSY TD SCH (08:22)
[2021-01-13] MEDS: CARBIDOPA/LEVODOPA 25-250 1 EA TAB PO SCH (08:23)
--- NOTE | 2021-01-13 08:54 | Neurology Consultation ---
Date of Consultation January 13, 2021 Assessment & Plan (1) Syncope: (2) Neuroendocrine tumor: (3) Restless leg syndrome: (4) Skull lesion: Patient has had some episodes of syncope ( more frequent recently then in the past). They tend to occur when she 1st stands up and she can have l ightheadedness prior or no warning prior. Today, after being in the hospital, resting for over 24 hours, she dropped her blood pressure and increased her pulse going from lying to sitting. Overall I tend to believe that this syncope is related to orthostasis or other vascular Phenomenon. She does not seem to have any cardiac dysrhythmia. These are likely not vasovagal (Although the most recent episode which occurred after she injured her foot may have been ). Carbidopa/levodopa will cause lightheadedness with standing and a tendency towards orthostasis. I cannot entirely exclude seizures although I tend to doubt these episodes represent atonic or brief generalized seizures. She does have an area of encephalomalacia in the right frontal lobe which could theoretically put her at risk for partial seizures but this injury was lifelong and the syncopal events have only started in the last 2 years. EEG was unremarkable. She has a neuroendocrine tumor by skull biopsy and is stable on monthly octreotide. There does not seem to be any obvious recurrence of tumor. Her right skull is tender from previous biopsy and the tumor. The neuroendocrine tumor/skull lesion would not put her at risk for seizure. The patient has restless leg syndrome which is much improved currently. she has never had a diagnosis of Parkinson's disease. The carbidopa/levodopa was for the restless leg syndrome. Recommendations: 1. Discontinue carbidopa/ levodopa. 2. Avoid over control of blood pressure. 3. continue gabapentin as this should not give her orthostasis and is an anticonvulsant. 4. continue octreotide monthly. 5. The patient is going to attention to her right foot including possible surgery and then a rehabilitation hospitalization. 6. The patient likely needs home health or someone to keep an eye on her at home. 7. I see no need for additional Neurologic testing or treatment at this time but I would be happy to follow as an outpatient. Overall, I spent a total of 120 minutes with this case including review of records, review of MRI films, direct evaluation patient at bedside, and discussion of the case with the patient at bedside, RN at bedside, and Dr. Chantel connelly, including differential diagnosis and treatment options. History of Present Illness Reason for Consultation: Patient is a 70-year-old, who I was asked to see at the request of Dr. Hough, for neurologic consultation regarding syncope. Requesting Physician: Dr. Hough Attending Physician: Odessa Hough MD History of Present Illness I 1st saw this patient in September of 2019. She has a significant past medical history which I will outline: The patient fell from a 2 story window onto the sidewalk, landing on her left forehead at age 3 and half years. She had a skull fracture. Her most recent MRI of the brain in June of 2019 shows an old small right frontal area of encephalomalacia which is stable. She has had restless leg syndrome for almost [address] Amin in the past and he initiated 25/100 carbidopa/levodopa. This has helped and she has used this intermittently ever since. The last note that I have of Dr. Amin is in December of 2011. He states the patient never had a diagnosis of Parkinson's disease (which the patient verifies) and diagnosis is always been restless leg syndrome. Can be quite intense at times. She describes it as worms in her legs that can be tickling her and require movement to relieve the symptoms. She was taking 4-5 Sinemet a day to help this problem.However, more recently, she has felt that the restless leg syndrome is improved and she has been taking about 1 per day in the morning. Patient has a history of low back pain and left lower extremity radicular symptoms. She was diagnosed with lumbar spinal stenosis at L3-4 and L5-S1, as well as facet arthrosis and degenerative spondylolisthesis at L5-S1. She underwent laminectomy and facetectomy with bony fusion from L3 through S1. She has continued to have low back pain and left lower extremity pain ever since. This continues even up to the present , although this is not overly active currently. In 2011 she had confusion and had a MR angiography study of the head. 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 CT angiography of the head done July 2018, showed no aneurysms, including the basilar artery. The patient has a history of chronic neck pain, headaches and right occipital pain, with suspected occipital neuralgia. She saw Dr. Byrd in January of 2019. At that time imaging studies showed expansile lesions in the right occipital bone and possibly the right frontal skull. Bone scan showed that the right occipital skull intensely lit up. She has some nonspecific uptake in her spine consistent with degenerative changes only. By the summer, she saw the doctor Behzad, neurosurgeon at [facility], who performed and bone biopsy in early August. The pathology came back neuroendocrine tumor with possible lung primary. All imaging studies of the lung and abdomen did not show any tumors or other primary issues. A NETspot PET-CT at [facility] showed increased uptake in the surgical area and a few small spots in the thoracic spine. She ended up seeing an NET specialists at [facility] who initiated octreotide injections monthly starting in December of 2019. she feels better on the injections but this is somewhat nonspecific ( "more energy" ). She is followed by Dr. Russo. MRI of the thoracic spine in July of 2020 showed no bony lesions consistent Neuro endocrine tumor. She continues to have tenderness and pain in her right occipital skull area where she had the surgery. The patient 1st had syncope about 2 years ago. She was cleaning her porch with her arms up overhead felt lightheaded and collapsed to the ground. She ended up fracturing her jaw. She has had intermittent episodes of syncope since. Typically she could get lightheaded with standing and perhaps pass out. Sometimes she would be standing and passed out without warning. Unfortunately no one has ever witnessed any of these episodes ( she lives alone ). Once, she was sitting on the toilet and passed out but she never has any episodes while sitting , lying, or relaxing. once she was "crawling on the floor" and passed out. She does not have chest pain or palpitations. She has never bitten her tongue. She has had urinary incontinence progressively over the past year but not specifically any of these spells. The syncopal episodes have been occurring about once per month over the last 4 months and over the last 3 days she has had daily. She hit her head recently and injured her right foot. She arrived to the emergency room on January 11 at 1022, with a temperature of 36.6, pulse 87, respiratory rate 30, blood pressure 149/80, and O2 saturation 92 percent. She has had no syncopal episodes while in the hospital. CBC showed elevated white count admission but today white count is normal. Chem profile was unremarkable as was a TSH, procalcitonin, prolactin, urinalysis, triglycerides and total cholesterol. She has been in normal sinus rhythm since admission. CT scan of the head was unremarkable. Chest x-ray showed some questionable left lower lobe changes consistent with possible pneumonia. Right foot x-ray and CT scan is consistent with fractures and Lisfranc injury. MRI of the brain showed no new intracranial lesions, infarct, or abnormal enhancement. The old right frontal area of encephalomalacia was unchanged. Sk ull in the right occipital head region had some post craniotomy enhancement nonspecifically. EEG was normal during wakefulness and drowsiness. Allergies Allergy/AdvReac Type Severity Reaction Status Date / Time bee venom protein (honey bee) Allergy Intermediate "I PASS Verified 01/11/21 13:10 OUT." nicotine Allergy Intermediate skin Verified 01/11/21 13:10 irritation bupropion Allergy Unknown unknown Verified 01/11/21 13:10 codeine Allergy Unknown unknown - Verified 01/11/21 13:10 TOLERATES PERCOCET Sulfa (Sulfonamide Allergy Unknown CAN'T Verified 01/11/21 13:10 Antibiotics) REMEMBER morphine AdvReac Intermediate CAN Verified 01/11/21 13:10 TOLERATE SMALL DOSES. hydromorphone [From Dilaudid] AdvReac Unknown TOLERATES Verified 01/11/21 13:10 SMALL DOSES ONLY Home Medications Medication Instructions Recorded Confirmed Type acetaminophen [Tylenol Extra 1,000 mg PO QID PRN 06/02/19 01/11/21 History Strength] duloxetine 30 mg capsule,delayed 30 mg PO DAILY #30 cap 02/21/20 01/11/21 Rx release fluticasone propionate 50 2 sprays [place] DAILY PRN #1 box 05/11/20 01/11/21 Rx mcg/actuation nasal spray,suspension gabapentin 600 mg tablet 600 mg PO TID #90 tab 06/05/20 01/11/21 Rx albuterol sulfate 90 mcg/actuation 2 puff INHALATION Q6H PRN #8.5 g 08/04/20 01/11/21 Rx aerosol inhaler carbidopa 25 mg-levodopa 250 mg 1 tab PO TID #270 tab 08/21/20 01/11/21 Rx tablet clonidine HCl 0.1 mg tablet 0.2 mg PO BID #120 tab 10/16/20 01/11/21 Rx amlodipine 5 mg tablet 5 mg PO DAILY #30 tab 10/23/20 01/11/21 Rx solifenacin 5 mg tablet 5 mg PO DAILY #30 tab 10/23/20 01/11/21 Rx omeprazole 20 mg tablet,delayed 20 mg PO DAILY #30 tab 11/07/20 01/11/21 Rx release hydralazine 10 mg tablet 10 mg PO TID #90 tab 11/20/20 01/11/21 Rx Lift Chair 1 ea .ROUTE ONCE #1 ea 12/05/20 Rx hydrochlorothiazide 25 mg tablet 25 mg PO DAILY #30 tab 12/05/20 01/11/21 Rx morphine 30 mg PO .Q4-6HRS PRN 01/11/21 01/11/21 History trazodone 150 mg PO HS 01/11/21 01/11/21 History Patient History Medical History Allergic rhinitis Aneurysm HX OF 15 YEARS AGO. Aneurysm of basilar artery Arthritis Benign lipomatous tumor COPD (chronic obstructive pulmonary disease) Depression Emphysema lung Generalized osteoarthritis of multiple sites GERD (gastroesophageal reflux disease) History of anesthesia reaction PT STATES THAT SHE WOKE UP TWICE DURING PREVIOUS COLONOSCOPY AND WAS ADVISED TO ALERT STAFF OF THIS FOR FUTURE PROCEDURES. History of cancer of vulva HTN (hypertension) (01/06/15) Hx SBO Hyperlipidemia Limited mobility Lumbago Mixed anxiety and depressive disorder (11/04/11) Neuroendocrine tumor Occipital neuralgia Parkinsons Self-harm Spinal stenosis Stomach ulcer Stroke Surgical History H/O exploratory laparotomy History of spinal surgery LUMBAR FUSION History of surgery REMOVAL OF RIGHT LABIA FOLLOWING DX OF VULVA CANCER S/P excision of lipoma Status post craniectomy Status post right knee replacement Family History Mother , Mother in her 90s of a stroke. Depression Hypertension Anxiety Stroke Sister Depression Hypertension Cerebral aneurysm Anxiety Father , in his mid to later 40s of an PR Hypertension Myocardial infarction Cardiac disorder Anxiety Other Family history non-contributory Social History Smoking Status: Current every day smoker Cigarettes Per Day: 1 pp/3 weeks; Number of Years Since Quit: 2; Second Hand Exposure: No; Do You Dip or Chew Tobacco: No; Tobacco Cessation Education Requested by Patient: No Hx Alcohol Use: No Hx Substance Use: No Preferred Language: Arabic Communication Ability: Effective Visual Impairment: Limited Hearing Ability: Normal Shaper Set Up Operator Required: No Beliefs That Will Affect Care: None marital status: / Current Living Situation: Alone Current Living Situation Comment: sister current occupational status: disabled 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 [email or web address] Other Information That Helps Us Care for You: No 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) Feels Safe at Home: Yes Safety Concerns: Feels Safe At This Time Assistive Devices: Glasses Review of Systems Constitutional: + weakness; no fever and no fatigue Eyes: no diplopia, no eye pain and no worsening vision Ear, Nose, Mouth, Throat: no ear pain, no tinnitus, no hearing loss, no dizziness, no hoarseness and no dysphagia Respiratory: no cough and no dyspnea Cardiovascular: no chest pain, no palpitations and no lightheadedness Gastrointestinal: no abdominal pain, no nausea and no vomiting Genitourinary: + urinary incontinence; no dysuria and no urinary frequency Musculoskeletal: + back pain; no neck pain, no radicular pain, no joint pain and no myalgia Integumentary: no rash and no lesions Neurologic: + localized weakness; no gait abnormality, no generalized weakness, no tingling, no numbness, no tremor(s), no abnormal movements, no headache(s), no abnormal speech, no confusion and no memory loss Psychiatric: no depression, no irritability, no anxiety, no difficulty concentrating, no confusion and no hallucinations Endocrine: no fatigue and no flushing Hematologic / Lymphatic: no easy bleeding and no easy bruising Allergy / Immunological: no urticaria and no problem reported Exam (Neuro) Physical Exam: The patient is right-handed. The patient is awake, alert, and attentive. Speech is normal without any aphasia or dysarthria. She can name objects, repeat phrases, and has normal spontaneous speech. Mentation and thought processes are intact, with orientation to person, place and time, and normal fund of knowledge. Attention and concentration are normal. Mood and affect are normal and appropriate. General appearance and grooming are normal. Short and long-term memory are intact. She is tender to palpation in her right occipital skull. She has a tender "lump" of a small nature on the skull. Pupils are 4 mm bilaterally and reactive to light. Extraocular eye muscles are intact without nystagmus. Visual acuity and visual rodriguez seem normal grossly to confrontation. There are no deficits to sensation in the face in all 3 distributions of the fifth cranial nerve bilaterally. Corneal reflexes are positive bilaterally. Facial strength and symmetry was normal bilaterally. Hearing seems normal to whisper and finger rub bilaterally. Palate moves well without asymmetry. There is normal sternocleidomastoid and trapezius (shoulder shrug) strength bilaterally. Tongue is midline with good strength bilaterally. Neck has a full range of motion without discomfort. There are no cervical bruits bilaterally. There are no cranial or ocular bruits. Heart is without murmur. There is a regular rhythm and rate. Cervical, thoracic, and lumbar spine are nontender to palpation. Gait is not testable, since she cannot weight bear on the right foot. Stance sitting up in bed is quite normal. She can hold onto a walker standing by her bedside holding her right foot up off the floor. With outstretched arms there is no drift. There are no resting, postural, or action tremors. There is no ataxia with finger to nose testing. There is good facility in the hands. No other abnormal involuntary movements are noted. Motor strength is 5/5 diffusely in the arms bilaterally including deltoids, biceps, triceps, brachioradialis, wrist flexors and extensors, material manager, and intrinsic hand muscles. Motor strength is 5/5 diffusely in the Left lower extremity including hip flexors, quadriceps, hamstrings, gastrocnemius, tibialis anterior, tibialis posterior, and Peroneii muscles. The right lower extremity was 5/5 except for any movement at the ankle which she would not do secondary to pain. She has swelling and discoloration on top of the right foot from the base of the toes towards the ankle. This foot is tender. Toe extensors are normal and there is good bulk in the extensor digitorum brevis muscles bilaterally. The limbs have good tone without rigidity or spasticity. There is no atrophy noted in the muscles. Muscle bulk is normal, there is no tenderness to palpation, no myotonia to percussion, and no fasciculations seen. Sensory examination is intact to touch and pin throughout all 4 limbs diffusely. Reflexes are 2/4 in the biceps, triceps, brachioradialis, quadriceps, and Achilles tendons bilaterally. There is no clonus bilaterally. Toes are downgoing with plantar stimulation bilaterally. Peripheral pulses are present and of normal quality distally in all 4 limbs. There is no peripheral edema noted in the limbs. After the neurologic examination, the RN and I performed orthostatic blood pressure and pulse readings after lying flat for 5 minutes. Lying, blood pressure was 153/92 with a pulse of 89. sitting up, blood pressure was 143/89 with a pulse of 100. The patient was not lightheaded. Standing, but holding onto the walker and lifting her right foot off the floor blood pressure was 157/88 with a pulse of 100 and she was lightheaded. Results & Data ([facility]) Vital Signs (Past 12 Hours) Vital Signs Temp Pulse Resp BP Pulse Ox 01/13/21 03:53 37.2 C 77 17 123/71 90 01/12/21 23:47 37.0 C 77 17 155/92 H 95 PG Care Time/CCT Total # of Minutes Spent Total Time Spent with Patient: Total time spent is greater than 50% in coordination of care (as documented) at patient's floor/unit and/or counseling patient: Coding Level of Care Code 04613 Initial Inpt Care Lvl 3 Diagnoses Syncope R55 Syncope type: unspecified Neuroendocrine tumor D3A.8 Restless leg syndrome G25.81 Skull lesion M89.9 Time Spent (min) 120 Comment Add [id number] to the [id number] (1) Syncope Syncope type: unspecified Qualified Code(s): R55 - Syncope and collapse
[2021-01-13] MEDS ORDERED: AZITHROMYCIN 250 MG TAB PO SCH (09:00)
[2021-01-13] MEDS ORDERED: GABAPENTIN 600 MG TAB PO SCH (09:00)
--- NOTE | 2021-01-13 11:40 | Discharge Summary ---
Date of Service January 13, 2021 Admission HPI Per Admitting Provider 70 YOF with past medical history of bran cancer (neuroendocrine) with unknown primary, T6-T8 blastic lesions, vulvectomy for vulvar cancer, chronic pain, restless leg, htn, overactive bladder, asthma The patient comes to the emergency room via EMS today after being found on ground at home. Patient reports that she got up this morning, ambulated to the kitchen, saw flashes in her vision and passed out. When she awoke she noticed that her head and right foot hurt. She endorses that she remembers feeling faint when trying to put weight on her foot and possibly passing out again. The patient endorses that sh kennedi has been "passing out for years"; however, the interval has been increasing. Mrs. Caro states that she passes out 3-5 times per week for the past 2 weeks and that the "flashes" in her vision have also increased during that time. Patient does not note any other associated or pre-syncopal symptoms, and denies vertigo or confusion prior to or after passing out. Denies that she has ever lost bowel or bladder function. Cancer history reviewed note (02/23/2020). Patient is to be on Octreotide injections that were started on 01/14/20 and has been inconsistent with getting those done as well as not following up. [facility] PET/CT in 2019 and no obvious mass or lesion was suggestive of a primary lesion, but does not appear to have followed up with her PET scan. She is on morphine for her spine, neck, and head pain. Principal Diagnosis Syncope, Suspect orthostasis or vasovagal; Right foot metatarsal and Lis Franc fractures Discharge Exam Constitutional WD/WN, vitals as above Eyes + anicteric sclerae and EOM intact bilaterally Neck trachea midline, no thyromegaly Respiratory normal respiratory effort, lungs clear to auscultation Cardiovascular RRR, no murmur, no edema Chest (Breasts) Chest: normal inspection of chest Gastrointestinal (Abdomen) normal bowel sounds, soft, nontender, no hepatosplenomegaly Musculoskeletal Extremities: + extremities abnormal to inspection (right foot with mild edema and ecchymosis dorsal foot), no cyanosis and no clubbing Skin no rashes, warm and dry Neurologic PERRL, EOMI, accommodation nl, no face palsy, no dysarthria CN's II-XI intact bilaterally, moves all extremities and awake; no focal motor deficits Motor/Sensory: no tremor, normal movement and no sensory deficit Psychiatric Orientation: alert, oriented x 3 and cooperative Eye Contact: good eye contact Lymphatic no lymphedema Discharge Data Allergies Allergy/AdvReac Type Severity Reaction Status Date / Time bee venom protein (honey bee) Allergy Intermediate "I PASS Verified 01/11/21 13:10 OUT." nicotine Allergy Intermediate skin Verified 01/11/21 13:10 irritation bupropion Allergy Unknown unknown Verified 01/11/21 13:10 codeine Allergy Unknown unknown - Verified 01/11/21 13:10 TOLERATES PERCOCET Sulfa (Sulfonamide Allergy Unknown CAN'T Verified 01/11/21 13:10 Antibiotics) REMEMBER morphine AdvReac Intermediate CAN Verified 01/11/21 13:10 TOLERATE SMALL DOSES. hydromorphone [From Dilaudid] AdvReac Unknown TOLERATES Verified 01/11/21 13:10 SMALL DOSES ONLY Consultations 01/11/21 12:26 ED Decision to Admit Stat 01/11/21 12:57 Consult Orthopedic Surgery Routine 01/11/21 13:50 Consult Case Management - Discharge Planning Routine 01/12/21 08:34 Consult Neurology Routine 01/13/21 11:19 Burn CD for patient Routine Ordered Studies 01/11/21 10:25 CT cervical spine wo con Stat 01/11/21 10:27 CT head/brain wo con Stat 01/12/21 08:51 MR brain wo/w con Urgent 01/12/21 10:01 CT foot RT wo con Routine CXR x 2 Right foot xray EEG ECHO Hospital Course (1) Syncope: SYncope possibly orthostasis due to side effects of multiple medications, did have one documented low BP here on arrival in 80s systolic and increase in pulse with standing on day of discharge. Perhaps also vaso-vagal from pain in foot from fracure on the day of admission-she described multiple episodes of passing out after breaking her foot--> but doesn't explain multiple other episodes she describes. Given flashing lights and arm shaking, consider brain lesion or seizures, however MRI brain unchanged from previous. EEG negative -Brain MRI checked and unchanged from previous with expansile lesions in left frontal parietal calvarial region, no new changes. - telemetry without any dysrhythmias -BP meds changed to avoid hypotension----> dc clonidine, hydralazine, and HCTZ and increase amlodipine to 10mg daily as she was becoming hypertensive in the 150s sys after holding the other 3 meds - ok to restart gabapentin, and discontinuing Sinemet (which can cause orthostasis) - ECHO normal, no valvular issues - Frequency is concerning with patient living at home on own and now with foot fracture from syncope -consult Neuro for further evaluation-much appreciated dc to rehab (2) Neuroendocrine tumor: missed her octreotide dose as outpt on 01/11, receives this once monthly discussed with [facility] Oncologist and Pharmacist-ok for delay in getting next dose until sometime during the week of January 22 after discharge from rehab (3) Hypertension: Patient is on interesting polypharmacy for her blood pressure control increase amlodipine dose as above - dc HCTZ, Clonidine, Hydralazine in case contributing to syncope follow BPs at rehab as may need to add second agent back on if BPs become too high (4) Pneumonia: Left lower lobe infiltrate, elevated WBC, no cough, no sputum, new oxygenation requirement, no pain on inspiration - Given dose of Cefepime in the ER----> then changed to IV Rocephin 1GM and azithro - Follow blood cultures-NGTD unclear if this is true PNA but repeat CXR slightly improved but infiltrate persisted on 01/13 Procalcitonin negative, leukocytosis resolved finish out course of azithro and cefdinir repeat CXR in 3-4 weeks as otupt (5) Restless leg syndrome: -held gabapentin but Neuro says ok to restart especially as is also anticonvulsant in case of low suspicion of seizures discontinue Sinemet as per Neuro recommendation as contributes to orthostasis (6) Chronic pain: continue Morphine and Tylenol prn (7) COPD (chronic obstructive pulmonary disease): No acute needs - Continue home albuterol (8) Lisfranc fracture: right foot Lis Franc fracture and multiple base of MT fxs appreciate Ortho consult plan for CAM boot and outpt f/u, possible surgery pain control prn (9) Spinal stenosis: continue home morphine pain meds (10) GERD (gastroesophageal reflux disease): continue PPI (11) Mixed anxiety and depressive disorder: continue trazadone, duloxetine (12) Metatarsal bone fracture: as above (13) DVT prophylaxis: -Lovenox 40 daily, with SCD - Diet regular - Code status full - Dispo dc to rehab at [facility] today Total Time Total Time Spent Total Time Spent (In Minutes): 35 min Total Time Includes: Examination of the Patient, Discharge Planning, Medication Reconciliation and Communication With Other Providers (Neuro) Discharge Plan Discharge Items Patient Disposition: Transfer Inpatient Rehab Fac Reason For Visit: SYNCOPE Discharge Diagnosis: Syncope, Orthostasis, Right foot fracture Condition on Discharge: Fair Activity: As commented below Bathing: No limitations Exercise/Sports: Gradually increase as tolerated Weightbearing: Left non-weightbearing Weightbearing Comment: and left foot/leg to remain in walking boot when out of bed Non-emergency contact: Primary Care Provider and Surgeon Call non-emergency contact if: you have any medication questions and your symptoms worsen Follow-up/Referrals: Mello Laureano MD [Physician] - (Follow up within 1 month) Yelena Keita MD [Primary Care Provider] - (Follow up within 2 weeks after discharge from rehab ) Sesar Roach DO [Surgeon] - (Follow up within 1 week.) Diet: Heart Healthy Addtl Attending Provider Instructions: You were admitted after multiple episodes of passing out which may have been due to pain from your foot fracture and also from blood pressure dropping upon standing. Your blood pressure medications were changed or discontinued to include: amlodipine increased to 10mg daily and your hydralazine, clonidine, and HCTZ were discontinued. Your Sinemet was also discontinued. You had a brain MRI which was unchanged from previous and an EEG showed no seizure activity. For your right foot fracture: remain in the CAM boot with walking and remain non-weight bearing on that foot; follow up with Orthopedic Surgery as you may require surgery in the near future.You can continue your usual morphine as needed for pain. You were also found to have a mild pneumonia and you should finish out the course of antibiotics as prescribed. Please have a repeat chest xray in 3-4 weeks to ensure this has resolved.You were not requiring oxygen and you tested negative for COVID. Pending Studies at Discharge: Yes Stand-Alone Forms: My [facility] Skilled Items Patient informed of condition?: Yes DNR: No Discharge Level of Care: Acute rehab Communicable Disease: No Discharge Prognosis: Improving Lines: None Urinary Catheter: No Medications and DC Order Prescriptions: New azithromycin 250 mg Tablet 250 mg PO QAM 2 Days Qty: 2 RF: 0 nicotine [Nicoderm CQ] 21 mg/24 hr Patch 24 Hour 21 mg transdermal QAM Qty: 7 RF: 0 cefdinir 300 mg capsule 300 mg PO BID 5 Days Qty: 10 RF: 0 Continued duloxetine 30 mg capsule,delayed release(DR/EC) 30 mg PO DAILY Qty: 30 RF: 2 fluticasone propionate 50 mcg/actuation spray,suspension 2 sprays [place] DAILY PRN (Reason: allergy symptoms) Qty: 1 RF: 3 gabapentin 600 mg tablet 600 mg PO TID Qty: 90 RF: 0 solifenacin [Vesicare] 5 mg tablet 5 mg PO DAILY Qty: 30 RF: 5 omeprazole 20 mg tablet,delayed release (DR/EC) 20 mg PO DAILY Qty: 30 RF: 5 Lift Chair Misc 1 ea .Route ONCE Qty: 1 RF: 0 albuterol sulfate 90 mcg/actuation HFA aerosol inhaler 2 puff inhalation Q6H PRN (Reason: shortness of breath or wheezing) Qty: 8.5 RF: 1 acetaminophen [Tylenol Extra Strength] 500 mg Tablet 1,000 mg PO QID PRN (Reason: Pain) RF: 0 morphine 30 mg tablet 30 mg PO .Q4-6HRS PRN (Reason: Pain) RF: 0 trazodone 150 mg tablet 150 mg PO HS RF: 0 Changed amlodipine 5 mg tablet 10 mg PO DAILY Qty: 30 RF: 5 Discontinued carbidopa-levodopa [Sinemet] 25-250 mg tablet 1 tab PO TID Qty: 270 RF: 1 clonidine HCl 0.1 mg tablet 0.2 mg PO BID Qty: 120 RF: 5 hydralazine 10 mg tablet 10 mg PO TID Qty: 90 RF: 5 hydrochlorothiazide 25 mg tablet 25 mg PO DAILY Qty: 30 RF: 5 Discharge Orders: Discharge Order (Routine); Ordered 01/13/21 Ordered By: Odessa Hough Admission Data Admit Date/Time: 01/11/21 14:01 Attending Provider: Odessa Hough Admit Provider: Javier Bowens Primary Care Provider: Yelena Keita Other Providers: Javier Bowens ; Sesar Roach Emile ; [facility] Coding Level of Care Code D/C Day Management >30 mins Diagnoses Syncope R55 Syncope type: unspecified Neuroendocrine tumor D3A.8 Hypertension I10 Hypertension type: essential hypertension Pneumonia J18.9 Restless leg syndrome G25.81 Chronic pain G89.29 Chronic pain type: other chronic pain COPD (chronic obstructive pulmonary disease) J44.9 COPD type: unspecified COPD Lisfranc fracture Spinal stenosis M48.00 GERD (gastroesophageal reflux disease) K21.9 Esophagitis presence: esophagitis presence not specified Mixed anxiety and depressive disorder F41.8 Metatarsal bone fracture S92.309A DVT prophylaxis Z29.9
== END 2021-01-13 13:02 | DRG 312 ==
LOC: ED 10:15 → 2E 14:01 → SUATTDRO 14:01 → 2E 14:23

== ENCOUNTER 2022-09-13 02:15 | Observation (INO) ==
[2022-09-13] MEDS ORDERED: MECLIZINE HCL 25 MG TAB PO STA (02:43)
[2022-09-13] MEDS ORDERED: SODIUM CHLORIDE 0.9% 1000ML 1,000 ML IV SCH (02:45)
[2022-09-13 02:49] LABS: Basophils # (auto) 0.03 K/uL (0-0.2); Basophils % (auto) 0.5 %; Eosinophils # (auto) 0.07 K/uL (0-0.50); Eosinophils % (auto) 1.1 %; Hematocrit (blood only) 34.9 % (34.1-44.9); Immature Granulocytes # (auto) 0.01 K/uL (0.00-0.02); Immature Granulocytes % (auto) 0.2 %; Lymphocytes # (auto) 0.99 K/uL (1.2-3.4); Lymphocytes % (auto) 16.2 %; Mean Corpuscular Hemoglobin 29.7 pg (25.0-34.0); Mean Corpuscular Hgb Conc 31.5 g/dL (32.0-36.0); Mean Corpuscular Volume 94.3 fL (80.0-100.0); Mean Platelet Volume 9.2 fL (9.4-12.3); Monocytes % (auto) 9.8 %; Neutrophils # (auto) 4.41 K/uL (1.4-6.5); Neutrophils % (auto) 72.2 %; Platelet Count 190 K/uL (130-400); RDW Coefficient of Variation 13.7 % (11.5-14.5); RDW Standard Deviation 47.8 fL (36.4-46.3); White Blood Count 6.11 K/ul (4.8-10.8)
--- NOTE | 2022-09-13 02:50 | Emergency Department Note ---
History of Present Illness General Chief complaint: Dizziness Stated complaint: DIZZY/DOUBLE VISION/SHORT OF BREATH Time Seen by Provider: 09/13/22 02:27 History of Present Illness 71-year-old female with a history of brain cancer received chemo and radiation for which she received 1 week ago states this evening that she had dizziness described as lightheadedness dizziness and some double vision. Patient states that she took oxycodone and methadone at 2 AM. Patient called EMS due to dizziness. Patient denies chest pain shortness of breath nausea vomiting abdominal pain. There are no other mitigating or alleviating factors Home Medications Medication Instructions Recorded Confirmed Type gabapentin 600 mg tablet 600 mg PO TID #90 tabs 06/05/20 08/14/22 Rx Lift Chair 1 ea .Route ONCE #1 ea 12/05/20 08/14/22 Rx albuterol sulfate 90 mcg/actuation 2 puff inhalation Q6H PRN 06/26/21 08/14/22 Rx aerosol inhaler shortness of breath or wheezing #8.5 grams acetaminophen 500 mg capsule 1,000 mg PO QID 09/20/21 08/14/22 History aspirin 81 mg tablet,delayed 81 mg PO DAILY 09/20/21 08/14/22 History release cetirizine 10 mg tablet 10 mg PO DAILY 09/20/21 08/14/22 History doxepin 25 mg capsule 25 mg PO HS 09/20/21 08/14/22 History duloxetine 20 mg capsule,delayed 20 mg PO DAILY 09/20/21 08/14/22 History release lamotrigine 25 mg tablet 50 mg PO HS 09/20/21 08/14/22 History methadone 10 mg tablet 10 mg PO TID 09/20/21 08/14/22 History oxycodone 5 mg tablet 5 mg PO Q4H PRN pain 09/20/21 08/14/22 History omeprazole 20 mg tablet,delayed 20 mg PO DAILY #90 tabs 09/28/21 08/14/22 Rx release clonidine HCl 0.1 mg tablet 0.1 mg PO BID #60 tabs 10/30/21 08/14/22 Rx phenazopyridine 200 mg tablet 200 mg PO TID PRN pain 6 doses #6 11/05/21 08/14/22 Rx (Pyridium) tabs fluticasone propionate 50 See Rx Instructions .Route 12/17/21 08/14/22 Rx mcg/actuation nasal .COMPLEX #16 grams spray,suspension amlodipine 5 mg tablet 5 mg PO DAILY #90 tabs 01/04/22 08/14/22 Rx carbidopa 25 mg-levodopa 250 mg See Rx Instructions .Route 03/05/22 08/14/22 Rx tablet .COMPLEX #180 tabs ibuprofen 200 mg capsule 200 mg PO DAILY 07/30/22 08/14/22 History melatonin 12 mg tablet 12 mg PO HS PRN 07/30/22 08/14/22 History solifenacin 5 mg tablet (Vesicare) 5 mg PO HS 07/30/22 08/14/22 History Allergies Allergy/AdvReac Type Severity Reaction Status Date / Time codeine Allergy Unknown itching Verified 08/14/22 10:19 Past Med/Surg History Medical History Allergic rhinitis Aneurysm of basilar artery hx 15 years ago Per records- CTA of head in Jul 2018 show no aneurysms - including basilar artery COPD (chronic obstructive pulmonary disease) Depression GERD (gastroesophageal reflux disease) History of cancer of vulva S/p vulvectomy HTN (hypertension) (01/06/15) Limited mobility wheelchair d/t right foot, normally uses cane or electric wheelchair Lumbago Mixed anxiety and depressive disorder (11/04/11) Neuroendocrine tumor Occipital neuralgia Pneumonia Possible- noted when admitted in Dec 2020- was treated with abxs. Restless leg syndrome, controlled On Gabapentin Self-harm Spinal stenosis Stomach ulcer Stroke Pt refused to give nursing any more details Per review of records and recent MRIs- no recent issues noted. Has been in records for at least 2-3 years Surgical History H/O brain surgery (03/29/21) Resection of Occipital Subgaleal Lesion Dr. Curt Wen at [facility] H/O exploratory laparotomy History of anesthesia reaction PT STATES THAT SHE WOKE UP TWICE DURING PREVIOUS COLONOSCOPY AND WAS ADVISED TO ALERT STAFF OF THIS FOR FUTURE PROCEDURES. History of brain surgery (08/17/19) History of spinal surgery LUMBAR FUSION History of surgery REMOVAL OF RIGHT LABIA FOLLOWING DX OF VULVA CANCER S/P excision of lipoma Status post right knee replacement Family History Mother , Passed Age 90's due to stroke Depression Hypertension Anxiety Stroke Sister Depression Hypertension Cerebral aneurysm Anxiety Father , in his mid to later 40s of an [place] Hypertension Myocardial infarction Cardiac disorder Anxiety Lymphoma Other Family history non-contributory Has no children Denies family history of Ovarian cancer Prostate cancer Breast cancer Colorectal cancer Social History Smoking Status: Former smoker Tobacco Type: Cigarettes Age Started Using Tobacco: 20; Age Quit Using Tobacco: 20; Cigarettes Per Day: 1 pp/3 weeks; Second Hand Exposure: No; Hx Alcohol Use: No Hx Substance Use: No Preferred Language: Setswana Communication Ability: Effective Visual Impairment: Limited Hearing Ability: Hard of Hearing Field Instructor Required: No Beliefs That Will Affect Care: None marital status: / Current Living Situation: Alone current occupational status: disabled 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 [employer] How many Children do You have: 0 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) Feels Safe at Home: Yes Childhood Exposure to Second-Hand Smoke: Yes caffeine: Yes (half a cup of coffee daily) during the past year weight has: remained stable Dental Care, Regularly: Yes Physical Activity Frequency: Does not Exercise Seatbelt Use: always Sunscreen Use: No Assistive Devices: Glasses, Special Shoe and Walker Review of Systems A total of 10 systems reviewed and were otherwise negative Constitutional: no fever Respiratory: + dyspnea; no cough Cardiovascular: no chest pain Neurologic: + dizziness Physical Exam Vital Signs Vital Signs - 24 hr 09/13/22 02:50 09/13/22 03:20 09/13/22 03:44 Temperature 36.6 C Temperature Source Oral Pulse Rate 74 Pulse Rate [Finger] 69 Respiratory Rate 21 21 Respiratory Effort / Characteristics Non-Labored Spontaneous Respiratory Depth Normal Blood Pressure 120/71 Blood Pressure [Right Arm] 114/66 Blood Pressure Mean 87 Blood Pressure Mean [Right Arm] 82 Pulse Oximetry 87 L 99 98 Oxygen Delivery Method Room Air Nasal Cannula Oxygen Flow Rate 2 Sepsis Recent Fever Within 48 Hours No Sepsis New/Unexplained Change in Mental Status N/A Sepsis Action Taken by Nursing No Action Required GENERAL: Patient is awake alert in no acute distress patient is resting comfortably and showing no signs of anxiety EYES: The conjunctivae are clear. The pupils are round and reactive. No nystagmus EARS, NOSE, MOUTH AND THROAT: The nose is without any evidence of any deformity. Mucous membranes are moist. Tongue is midline. HEAD: Alopecia, midline surgical scar in the occipital region NECK: The neck is nontender and supple. RESPIRATORY: Normal respiratory effort is noted there is no evidence of wheezing rhonchi or rales CARDIOVASCULAR: Regular rate and rhythm noted there no murmurs rubs or gallops normal S1 normal S2. GASTROINTESTINAL: The abdomen is soft. Abdomen is nontender. PELVIS: The Pelvis is stable. No tenderness to palpation is noted. BACK: No midline tenderness or or step-off noted range of motion in flexion extension as well as rotation no signs of muscle spasm noted MUSCULOSKELETAL/EXTREMITIES: There is no evidence of gross deformity full range of motion is noted in the hips and shoulders. SKIN: There is no obvious evidence of any rash. There are no petechiae, pallor or cyanosis noted. NEUROLOGIC: Patient is awake alert and oriented x3 strength is symmetric Course Reevaluation(s) Reevaluation #1: Patient is somnolent on reexamination patient did take an opiate and methadone at 2 AM. Patient's CAT scan is negative. Patient's lab work is negative her chest x-ray is negative. Patient is extremely somnolent and requires sternal rub but is maintaining her airway is not hypoxic Time: 04:59 Consultations Consultation #1: Spoke with the [facility]ist for admission Time: 05:19 Administered Medications Discontinued Medications Sodium Chloride (Nss 1000ml) 1,000 mls @ 999 mls/hr IV .Q1H1M DENISA Stop: 09/13/22 03:45 Last Infusion: 09/13/22 05:12 Dose: 0 mls/hr Documented By: Admin: 09/13/22 03:53 Dose: 999 mls/hr Documented By: MARTIN Meclizine HCl (Meclizine Hcl 25 Mg Tab) 25 mg PO NOW STA Stop: 09/13/22 02:44 Last Admin: 09/13/22 03:54 Dose: Not Given Documented By: MARTIN Medical Decision Making Medical Records Attestation: I reviewed the patient's medical records. Home Medications Current Medication List: was personally reviewed by me Laboratory Data Attestation: I reviewed the patient's lab results. Result diagrams: 09/13/22 02:40 09/13/22 02:40 Lab Results 09/13/22 09/13/22 09/13/22 Range/Units 02:40 02:40 02:40 WBC 6.11 (4.8-10.8) K/ul RBC 3.70 L (3.93-5.22) M/uL Hgb 11.0 L (12.0-16.0) g/dl Hct 34.9 (34.1-44.9) % MCV 94.3 (80.0-100.0) fL MCH 29.7 (25.0-34.0) pg MCHC 31.5 L (32.0-36.0) g/dL RDW Std Deviation 47.8 H (36.4-46.3) fL RDW Coeff of Ginger 13.7 (11.5-14.5) % Plt Count 190 (130-400) K/uL MPV 9.2 L (9.4-12.3) fL Immature Gran % (Auto) 0.2 % Neut % (Auto) 72.2 % Lymph % (Auto) 16.2 % [place] % (Auto) 9.8 % Eos % (Auto) 1.1 % Baso % (Auto) 0.5 % Neut # (Auto) 4.41 (1.4-6.5) K/uL Lymph # (Auto) 0.99 L (1.2-3.4) K/uL [place] # (Auto) 0.60 (0.24-0.82) K/uL Eos # (Auto) 0.07 (0-0.50) K/uL Baso # (Auto) 0.03 (0-0.2) K/uL Immature Gran # (Auto) 0.01 (0.00-0.02) K/uL PT 10.5 (9.0-12.0) Seconds INR 1.0 (0.9-1.1) Sodium 135 L (136-145) mmol/L Potassium 4.0 (3.5-5.1) mmol/L Chloride 98 (98-107) mmol/L Carbon Dioxide 31 (21-32) mmol/L Anion Gap 6 (3-11) BUN 14 (6-23) mg/dl Creatinine 0.66 (0.6-1.2) mg/dl Est Cr Clr Drug Dosing 81.6 ml/min Est GFR ( Amer) 104.5 ml/min Est GFR (Non-Af Amer) 90.1 ml/min BUN/Creatinine Ratio 21.2 H (10-20) Glucose 98 (70-99(Fasting)) mg/dl Calcium 9.1 (8.5-10.1) mg/dl Total Bilirubin 0.6 (0.2-1.0) mg/dl AST 10 L (13-39) U/L ALT < 3 L (7-52) U/L Alkaline Phosphatase 77 (34-104) U/L Troponin I High Sens 4.4 (0-14) pg/ml Total Protein 6.7 (6.0-8.3) gm/dl Albumin 4.2 (3.4-5.0) gm/dl Globulin 2.5 (2.5-4.0) gm/dl Albumin/Globulin Ratio 1.7 (0.9-2) Imaging Data Attestation: I personally reviewed and interpreted this imaging study as follows: My Impression: Chest x-ray interpreted by me negative for infiltrate Radiologist's Impression: CT brain per radiology status postcraniotomy no intracranial hemorrhage mass- effect or edema no evidence of acute cortical stroke ECG Data Attestation: I personally reviewed and interpreted this ECG as follows: Additional Comments: EKG interpreted by me normal sinus rhythm rate of 73 normal intervals normal axis no obvious ST segment elevation or depression MDM Narrative Medical decision making differential diagnosis includes vertigo, electrolyte abnormality, brain tumor, cardiac dysrhythmia; plan is to check labs, CT, give IV fluids, meclizine, observe Patient was evaluated for dizziness, patient has a prior history of a brain lesion craniotomy, patient did take opiates and methadone at 2 AM. Patient's CAT scan is negative, lab work is unremarkable, patient went cannot reassess neuro exam, nurse stated that patient had failed dysphagia screen. Impression & Plan Dizziness, Acute alteration in mental status Discharge Plan Visit Data Chief Complaint: Dizziness Stated Complaint: DIZZY/DOUBLE VISION/SHORT OF BREATH ED Provider: Shoaib Guerrero Discharge Problem: Dizziness, Acute alteration in mental status Patient Disposition: Being Evaluated by Hospitalist Forms Stand Alone Forms: My [facility], Virtual Emergency Department, Important Visit Information Prescriptions Prescriptions: No Action solifenacin [Vesicare] 5 mg tablet 5 mg PO HS gabapentin 600 mg tablet 600 mg PO TID Qty: 90 0RF Lift Chair Misc 1 ea .Route ONCE Qty: 1 0RF Rx Instructions: LIFT CHAIR MECHANISM. DX: Z74.09. albuterol sulfate 90 mcg/actuation HFA aerosol inhaler 2 puff inhalation Q6H PRN (Reason: shortness of breath or wheezing) Qty: 8.5 1RF omeprazole 20 mg tablet,delayed release (DR/EC) 20 mg PO DAILY Qty: 90 3RF phenazopyridine [Pyridium] 200 mg tablet 200 mg PO TID PRN (Reason: pain) Qty: 6 0RF fluticasone propionate 50 mcg/actuation spray,suspension See Rx Instructions .ROUTE .COMPLEX Qty: 16 5RF Dose Instruction: USE 2 SPRAYS INTO EACH NOSTRIL DAILY NEEDED FOR ALLERGY SYMPTOMS. Rx Instructions: USE 2 SPRAYS INTO EACH NOSTRIL DAILY NEEDED FOR ALLERGY SYMPTOMS. amlodipine 5 mg tablet 5 mg PO DAILY Qty: 90 3RF carbidopa-levodopa 25-250 mg tablet See Rx Instructions .ROUTE .COMPLEX Qty: 180 1RF Dose Instruction: TAKE ONE TABLET BY MOUTH 2 TIMES A DAY Rx Instructions: TAKE ONE TABLET BY MOUTH 2 TIMES A DAY clonidine HCl 0.1 mg tablet 0.1 mg PO BID Qty: 60 1RF aspirin 81 mg tablet,delayed release (DR/EC) 81 mg PO DAILY lamotrigine 25 mg tablet 50 mg PO HS duloxetine 20 mg capsule,delayed release(DR/EC) 20 mg PO DAILY Rx Instructions: afternoon doxepin 25 mg capsule 25 mg PO HS oxycodone 5 mg tablet 5 mg PO Q4H PRN (Reason: pain) acetaminophen 500 mg capsule 1,000 mg PO QID cetirizine 10 mg tablet 10 mg PO DAILY methadone 10 mg tablet 10 mg PO TID Rx Instructions: total dose = 15mg TID; may take 4x/day ibuprofen 200 mg capsule 200 mg PO DAILY melatonin 12 mg tablet 12 mg PO HS PRN Referrals Referrals: Yelena Keita MD [Primary Care Provider] -
[2022-09-13 03:02] LABS: Prothrombin Time 10.5 Seconds (9.0-12.0)
[2022-09-13 03:17] LABS: Troponin I High Sensitivity 4.4 pg/ml (0-14)
[2022-09-13 03:27] LABS: Anion Gap 6 (3-11); BUN Creatinine Ratio 21.2 (10-20); Blood Urea Nitrogen 14 mg/dl (6-23); Calcium 9.1 mg/dl (8.5-10.1); Carbon Dioxide 31 mmol/L (21-32); Chloride 98 mmol/L (98-107); Creatinine Clr Calc Pharmacy 81.6 ml/min; Est GFR (African American) 104.5 ml/min; Est GFR (Non-African American) 90.1 ml/min; Glucose 98 mg/dl (70-99(Fasting)); Sodium 135 mmol/L (136-145)
[2022-09-13 03:35] LABS: Alanine Aminotransferase < 3 U/L (7-52); Albumin Globulin Ratio 1.7 (0.9-2); Albumin Level 4.2 gm/dl (3.4-5.0); Alkaline Phosphatase 77 U/L (34-104); Aspartate Aminotransferase 10 U/L (13-39); Bilirubin,Total 0.6 mg/dl (0.2-1.0); Globulin 2.5 gm/dl (2.5-4.0); Total Protein 6.7 gm/dl (6.0-8.3)
--- NOTE | 2022-09-13 05:39 | History & Physical Report ---
Date of Service September 13, 2022 Assessment & Plan (1) Status post craniectomy: Plan: Status post craniectomy along right posterior lateral occipital region with metallic plate- Mild nonspecific extra-axial soft tissue fullness is likely postoperative (2) Acute alteration in mental status: Plan: Alteration in mental status/dizziness/history of syncope- Patient is sedated at this point due to taking oxycodone and methadone CT head without acute findings Will allow medication to wear off, and as they do, we will resume her usual oral medications. In the interim, all oral medications will be on hold (3) Dizziness: Plan: Patient did receive meclizine 25 mg p.o. in ED, which is likely adding to the sedative effect of the oxycodone and methadone (4) Syncope: (5) Restless leg syndrome: (6) Hypertension: (7) Hyperlipidemia: (8) COPD (chronic obstructive pulmonary disease): (9) GERD (gastroesophageal reflux disease): Plan: Placed on famotidine 20 mg IV every 12 hours (10) HTN (hypertension): Plan: Hold amlodipine, aspirin, clonidine until patient able to take p.o. Hydralazine 10 mg IV every 8 hours as needed systolic blood pressure greater than 160 (11) Mixed anxiety and depressive disorder: (12) Neuroendocrine tumor: History of Present Illness Chief Complaint: The patient presents to the emergency department with complaint of dizziness, lightheadedness and headache earlier this evening. She took oxycodone and methadone at 2 AM, and shortly thereafter called EMS due to persistent dizziness. Primary Care Provider: Yelena Keita MD The patient is a 71-year-old female with a past medical history including pneumonia, H. pylori infection, lung emphysema, hypertension, cervical spondylosis, hyperlipidemia, chronic pain syndrome, brain lesion, restless leg syndrome, syncope, Lisfranc fracture, neuroendocrine tumor, status post craniectomy, stroke, occipital neuralgia, generalized osteoarthritis, basilar artery aneurysm, hypertension, mixed anxiety and depressive disorder, history of vulvar cancer and allergic rhinitis. The patient presents to the emergency department as noted above. At the time my examination, the patient is sedated and difficult to arouse, but with stable vital signs and oxygenation status. Allergies Allergy/AdvReac Type Severity Reaction Status Date / Time codeine Allergy Unknown itching Verified 08/14/22 10:19 Home Medications Medication Instructions Recorded Confirmed Type gabapentin 600 mg tablet 600 mg PO TID #90 tabs 06/05/20 08/14/22 Rx Lift Chair 1 ea .Route ONCE #1 ea 12/05/20 08/14/22 Rx albuterol sulfate 90 mcg/actuation 2 puff inhalation Q6H PRN 06/26/21 08/14/22 Rx aerosol inhaler shortness of breath or wheezing #8.5 grams acetaminophen 500 mg capsule 1,000 mg PO QID 09/20/21 08/14/22 History aspirin 81 mg tablet,delayed 81 mg PO DAILY 09/20/21 08/14/22 History release cetirizine 10 mg tablet 10 mg PO DAILY 09/20/21 08/14/22 History doxepin 25 mg capsule 25 mg PO HS 09/20/21 08/14/22 History duloxetine 20 mg capsule,delayed 20 mg PO DAILY 09/20/21 08/14/22 History release lamotrigine 25 mg tablet 50 mg PO HS 09/20/21 08/14/22 History methadone 10 mg tablet 10 mg PO TID 09/20/21 08/14/22 History oxycodone 5 mg tablet 5 mg PO Q4H PRN pain 09/20/21 08/14/22 History omeprazole 20 mg tablet,delayed 20 mg PO DAILY #90 tabs 09/28/21 08/14/22 Rx release clonidine HCl 0.1 mg tablet 0.1 mg PO BID #60 tabs 10/30/21 08/14/22 Rx phenazopyridine 200 mg tablet 200 mg PO TID PRN pain 6 doses #6 11/05/21 08/14/22 Rx (Pyridium) tabs fluticasone propionate 50 See Rx Instructions .Route 12/17/21 08/14/22 Rx mcg/actuation nasal .COMPLEX #16 grams spray,suspension amlodipine 5 mg tablet 5 mg PO DAILY #90 tabs 01/04/22 08/14/22 Rx carbidopa 25 mg-levodopa 250 mg See Rx Instructions .Route 03/05/22 08/14/22 Rx tablet .COMPLEX #180 tabs ibuprofen 200 mg capsule 200 mg PO DAILY 07/30/22 08/14/22 History melatonin 12 mg tablet 12 mg PO HS PRN 07/30/22 08/14/22 History solifenacin 5 mg tablet (Vesicare) 5 mg PO HS 07/30/22 08/14/22 History Past Med/Surg History Medical History Allergic rhinitis Aneurysm of basilar artery hx 15 years ago Per records- CTA of head in Jul 2018 show no aneurysms - including basilar artery COPD (chronic obstructive pulmonary disease) Depression GERD (gastroesophageal reflux disease) History of cancer of vulva S/p vulvectomy HTN (hypertension) (01/06/15) Limited mobility wheelchair d/t right foot, normally uses cane or electric wheelchair Lumbago Mixed anxiety and depressive disorder (11/04/11) Neuroendocrine tumor Occipital neuralgia Pneumonia Possible- noted when admitted in Dec 2020- was treated with abxs. Restless leg syndrome, controlled On Gabapentin Self-harm Spinal stenosis Stomach ulcer Stroke Pt refused to give nursing any more details Per review of records and recent MRIs- no recent issues noted. Has been in records for at least 2-3 years Surgical History H/O brain surgery (03/29/21) Resection of Occipital Subgaleal Lesion Dr. Curt Wen at [facility] H/O exploratory laparotomy History of anesthesia reaction PT STATES THAT SHE WOKE UP TWICE DURING PREVIOUS COLONOSCOPY AND WAS ADVISED TO ALERT STAFF OF THIS FOR FUTURE PROCEDURES. History of brain surgery (08/17/19) History of spinal surgery LUMBAR FUSION History of surgery REMOVAL OF RIGHT LABIA FOLLOWING DX OF VULVA CANCER S/P excision of lipoma Status post right knee replacement Family History Mother , Passed Age 90's due to stroke Depression Hypertension Anxiety Stroke Sister Depression Hypertension Cerebral aneurysm Anxiety Father , in his mid to later 40s of an MT Hypertension Myocardial infarction Cardiac disorder Anxiety Lymphoma Other Family history non-contributory Has no children Denies family history of Ovarian cancer Prostate cancer Breast cancer Colorectal cancer Social History Smoking Status: Former smoker Tobacco Type: Cigarettes Age Started Using Tobacco: 20; Age Quit Using Tobacco: 20; Cigarettes Per Day: 1 pp/3 weeks; Second Hand Exposure: No; Hx Alcohol Use: No Hx Substance Use: No Preferred Language: Amharic Communication Ability: Effective Visual Impairment: Limited Hearing Ability: Hard of Hearing Tube Buffer Required: No Beliefs That Will Affect Care: None marital status: / Current Living Situation: Alone current occupational status: disabled 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 [employer] How many Children do You have: 0 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) Feels Safe at Home: Yes Childhood Exposure to Second-Hand Smoke: Yes caffeine: Yes (half a cup of coffee daily) during the past year weight has: remained stable Dental Care, Regularly: Yes Physical Activity Frequency: Does not Exercise Seatbelt Use: always Sunscreen Use: No Assistive Devices: Glasses, Special Shoe and Walker Review of Systems Review of Systems: The patient is not able to contribute significantly to HPI and review of systems due to sedation Physical Exam Physical Exam: The patient is resting comfortably, difficult to wake up, normocephalic and atraumatic, lying in bed and in no acute distress. HEENT--PERRL, EOMI, mucous membranes and oropharynx dry. Neck--supple. No JVD. No bruits. Thyroid normal, trachea midline, no adenopathy. Heart--normal S1 and S2. No murmurs, rubs or gallops. Lungs--clear bilaterally, no respiratory distress, no accessory muscle use. Abdomen--normal bowel sounds and soft. Nontender. Nondistended, no hernias or masses, no organomegaly. Extremities--no cyanosis or clubbing. No edema. Dermatologic--normal skin turgor, normal color, no abnormal lymph nodes, no rash. Neurologic--cranial nerves II through XII grossly intact. Rheumatologic--limited exam Psychiatric--sedated. Results & Data Results & Data ([facility]) Vital Signs (Past 12 Hours) Vital Signs Temp Pulse Pulse Resp BP BP Pulse Ox 09/13/22 03:44 69 21 114/66 98 09/13/22 03:20 99 09/13/22 02:50 36.6 C 74 21 120/71 87 L O2 Del Method O2 Flow Rate 09/13/22 03:44 09/13/22 03:20 Nasal Cannula 2 09/13/22 02:50 Room Air Laboratory Results Laboratory Results WBC 6.11 K/ul (4.8-10.8) 09/13/22 02:40 RBC 3.70 M/uL (3.93-5.22) L 09/13/22 02:40 Hgb 11.0 g/dl (12.0-16.0) L 09/13/22 02:40 Hct 34.9 % (34.1-44.9) 09/13/22 02:40 MCV 94.3 fL (80.0-100.0) 09/13/22 02:40 MCH 29.7 pg (25.0-34.0) 09/13/22 02:40 MCHC 31.5 g/dL (32.0-36.0) L 09/13/22 02:40 RDW Std Deviation 47.8 fL (36.4-46.3) H 09/13/22 02:40 RDW Coeff of Ginger 13.7 % (11.5-14.5) 09/13/22 02:40 Plt Count 190 K/uL (130-400) 09/13/22 02:40 MPV 9.2 fL (9.4-12.3) L 09/13/22 02:40 Immature Gran % (Auto) 0.2 % 09/13/22 02:40 Neut % (Auto) 72.2 % 09/13/22 02:40 Lymph % (Auto) 16.2 % 09/13/22 02:40 [place] % (Auto) 9.8 % 09/13/22 02:40 Eos % (Auto) 1.1 % 09/13/22 02:40 Baso % (Auto) 0.5 % 09/13/22 02:40 Neut # (Auto) 4.41 K/uL (1.4-6.5) 09/13/22 02:40 Lymph # (Auto) 0.99 K/uL (1.2-3.4) L 09/13/22 02:40 [place] # (Auto) 0.60 K/uL (0.24-0.82) 09/13/22 02:40 Eos # (Auto) 0.07 K/uL (0-0.50) 09/13/22 02:40 Baso # (Auto) 0.03 K/uL (0-0.2) 09/13/22 02:40 Immature Gran # (Auto) 0.01 K/uL (0.00-0.02) 09/13/22 02:40 PT 10.5 Seconds (9.0-12.0) 09/13/22 02:40 INR 1.0 (0.9-1.1) 09/13/22 02:40 Sodium 135 mmol/L (136-145) L 09/13/22 02:40 Potassium 4.0 mmol/L (3.5-5.1) 09/13/22 02:40 Chloride 98 mmol/L (98-107) 09/13/22 02:40 Carbon Dioxide 31 mmol/L (21-32) 09/13/22 02:40 Anion Gap 6 (3-11) 09/13/22 02:40 BUN 14 mg/dl (6-23) 09/13/22 02:40 Creatinine 0.66 mg/dl (0.6-1.2) 09/13/22 02:40 Est Cr Clr Drug Dosing 81.6 ml/min 09/13/22 02:40 Est GFR ( Amer) 104.5 ml/min 09/13/22 02:40 Est GFR (Non-Af Amer) 90.1 ml/min 09/13/22 02:40 BUN/Creatinine Ratio 21.2 (10-20) H 09/13/22 02:40 Glucose 98 mg/dl (70-99(Fasting)) 09/13/22 02:40 Calcium 9.1 mg/dl (8.5-10.1) 09/13/22 02:40 Total Bilirubin 0.6 mg/dl (0.2-1.0) 09/13/22 02:40 AST 10 U/L (13-39) L 09/13/22 02:40 ALT < 3 U/L (7-52) L 09/13/22 02:40 Alkaline Phosphatase 77 U/L (34-104) 09/13/22 02:40 Troponin I High Sens 4.4 pg/ml (0-14) 09/13/22 02:40 Total Protein 6.7 gm/dl (6.0-8.3) 09/13/22 02:40 Albumin 4.2 gm/dl (3.4-5.0) 09/13/22 02:40 Globulin 2.5 gm/dl (2.5-4.0) 09/13/22 02:40 Albumin/Globulin Ratio 1.7 (0.9-2) 09/13/22 02:40 Diagnostic Findings [facility] Patient: ELIZABETH BAILEY (Female) : 54 Status: ER Date: 09/13/22 03:45 Room #: History: DIZZY Slices: 66 Priors: Tech: Angel Robison @ [phone] Exams: CT HEAD Contrast: Accession Numbers: [id number] Referring Physician: REFERRED SELF Preliminary Findings Only See Final Report For Complete Findings CT HEAD: Comparison: 08/07/2016. Status post craniectomy along the right post lateral occipital region with metallic plate. Mild nonspecific extra-axial soft tissue fullness, likely postoperative at this level. No ICH, mass effect or edema. No evidence of acute cortical stroke. Periventricular small vessel ischemic change. Mild generalized brain atrophy. Visualized sinuses and mastoid air cells are clear. Radiologist: May Ashton MD Study ready at 03:48 and initial results transmitted at 04:14 *This report constitutes a preliminary interpretation only. Non-acute findings felt to be unrelated to the clinical presentation may not be discussed in this report. The study will be interpreted and a final report will be generated by the local Radiologist the following shift. To reach the hospital radiology department call [phone]. If a discrepancy is found between the preliminary and final interpretations of this study, please notify us via our Client Portal at [email or web address], under QA Exams. You can also fax this report with a description of the discrepancy, or include the final report, to our daytime fax number [phone]. If faxing, please indicate the severity of discrepancy using one of the following categories: [ ] 1 - Agree/Informational [ ] 2 - Unlikely to Affect Management [ ] 3 - Possible Eventual Change of Management [ ] 4 - Probable Immediate Change of Management For all other patient related information, please fax us at [phone]. [id number] Code Status & VTE Plan VTE Prophylaxis Plan VTE Prophylaxis will be ordered: Yes PG Care Time/CCT Total # of Minutes Spent Total Time Spent with Patient: Total time spent is greater than 50% in coordination of care (as documented) at patient's floor/unit and/or counseling patient: Coding Level of Care Code INT OBSERVATION CARE 70M LVL 3 Diagnoses Status post craniectomy Z98.890 Acute alteration in mental status R41.82 Dizziness R42 Syncope R55 Syncope type: unspecified Restless leg syndrome G25.81 Hypertension I10 Hypertension type: essential hypertension Hyperlipidemia E78.5 Hyperlipidemia type: unspecified COPD (chronic obstructive pulmonary disease) J44.9 COPD type: unspecified COPD GERD (gastroesophageal reflux disease) K21.9 Esophagitis presence: esophagitis presence not specified HTN (hypertension) I10 Mixed anxiety and depressive disorder F41.8 Neuroendocrine tumor D3A.8 (1) Syncope Syncope type: unspecified Qualified Code(s): R55 - Syncope and collapse (2) Hypertension Hypertension type: essential hypertension Qualified Code(s): I10 - Essential (primary) hypertension (3) Hyperlipidemia Hyperlipidemia type: unspecified Qualified Code(s): E78.5 - Hyperlipidemia, unspecified (4) COPD (chronic obstructive pulmonary disease) COPD type: unspecified COPD Qualified Code(s): J44.9 - Chronic obstructive pulmonary disease, unspecified (5) GERD (gastroesophageal reflux disease) Esophagitis presence: esophagitis presence not specified Qualified Code(s): K21.9 - Gastro-esophageal reflux disease without esophagitis
[2022-09-13] MEDS ORDERED: hydrALAZINE HCL 20 MG/ML VIAL IV PRN (06:05)
--- NOTE | 2022-09-13 06:59 | CT Scan Report ---
CT SCAN OF THE BRAIN WITHOUT IV CONTRAST CLINICAL HISTORY: Dizziness. COMPARISON STUDY: CT of the brain dated 02/01/2022. TECHNIQUE: Unenhanced axial CT scan of the brain is performed from the vertex to the skull base. A do se lowering technique was utilized adhering to the principles of ALARA. CT DOSE: 614.27 mGy.cm FINDINGS: Brain parenchyma: Postsurgical change is noted deep to the occipital craniectomy site. There is age-r elated involutional change noting mild subcortical and periventricular microangiopathic disease. Ther e is no hemorrhage, mass effect, or evidence of acute territorial ischemia by CT criteria. Forrester-white matter differentiation is preserved. No extra-axial fluid collection is seen. Ventricles, sulci, cisterns: Prominent secondary to involutional change. Intracranial vasculature: There is atherosclerotic calcification of the cavernous carotid and vertebr al arteries. Calvarium: There is postoperative change from occipital craniectomy. Sinuses and mastoids: The paranasal sinuses are clear. The mastoid air cells are well pneumatized. Orbits: The bony orbits are grossly intact. IMPRESSION: There is no hemorrhage, mass effect, or evidence of acute territorial ischemia by CT liam rizvi. ACT 112: Negative or not required by law. Electronically signed by: Casey Caro M.D. 09/13/2022 6:58 AM
[2022-09-13] MEDS ORDERED: ONDANSETRON INJ 2 MG/ML 2 ML VIAL IV PRN (07:43)
--- NOTE | 2022-09-13 08:14 | XRay Report ---
XR chest 1V portable HISTORY: shortness of breath COMPARISON: Chest 02/06/2021. FINDINGS: No pneumothorax. No pleural effusions. The cardiac silhouette is normal in size. Partially visualized lumbar spinal fusion hardware is noted. There are small patchy bibasilar densities. The up per lung zones remain clear. No evidence for pulmonary edema. IMPRESSION: Small patchy bibasilar densities. This is nonspecific and could be due to atelectasis or a pneumonia. ACT 112: Negative or not required by law. Electronically signed by: Fam Maldonado M.D. 09/13/2022 8:13 AM
[2022-09-13] MEDS: NSS + 20MEQ KCL 20 MEQ/1,000 ML BAG IV SCH (10:20)
[2022-09-13] MEDS: FAMOTIDINE 20 MG in SYRINGE 3 ML IV SCH ×2 (10:21→22:23)
[2022-09-13] MEDS ORDERED: NALOXONE HCL 0.4 MG/1 ML VIAL/CARP IV STA (10:36)
[2022-09-13] MEDS ORDERED: HALOPERIDOL LACTATE 5 MG/ML 1 ML VIAL IM STA (10:59)
--- NOTE | 2022-09-13 14:03 | Hospitalist Progress Note ---
Date of Service September 13, 2022 Assessment & Plan (1) Acute alteration in mental status: Plan: Acute encephalopathy, most likely secondary to opiate overdose. It was gathetrerd she took Methadone and Oxycodone and also Meclizine Due to respiratory depression, narcan 0.4mg was administerd and patient woke up, but became very agitaated and confused PRN Haldol for agitation But will prefer to let the opiates wash out her system Continue to monitor Seizure precautions (2) Status post craniectomy: Plan: Status post craniectomy along right posterior lateral occipital region with metallic plate- Mild nonspecific extra-axial soft tissue fullness is likely postoperative (3) Dizziness: Plan: Patient did receive meclizine 25 mg p.o. in ED, which is likely adding to the sedative effect of the oxycodone and methadone (4) Syncope: (5) Restless leg syndrome: (6) Hypertension: (7) Hyperlipidemia: (8) COPD (chronic obstructive pulmonary disease): (9) GERD (gastroesophageal reflux disease): Plan: Placed on famotidine 20 mg IV every 12 hours (10) Mixed anxiety and depressive disorder: (11) Neuroendocrine tumor: Plan continue hospitalization Admission and Anticipated Discharge Date Admission Date: September 13, 2022 Subjective patient seen and examined, was in deep slumbar, almost comatose, did not arouse to deep sternal rub, however, woke up after narcan, but was very agitated and confused Review of Systems Review of Systems: unable to obtain Physical Exam Physical Exam: The patient is awake, agitated HEENT--PERRL, EOMI, mucous membranes and oropharynx mildly dry Neck--supple. No JVD. No bruits. Thyroid normal, trachea midline, no adenopathy. Heart--normal S1 and S2. No murmurs, rubs or gallops. Lungs--clear bilaterally, no respiratory distress, no accessory muscle use. Abdomen--normal bowel sounds and soft. Mild epigastric and left sided abdominal pain Extremities--no cyanosis or clubbing. No edema. Dermatologic--normal skin turgor, normal color, no abnormal lymph nodes, no rash. Neurologic--agitated Rheumatologic--normal range of motion. Psychiatric--unable to assess Results & Data Results & Data ([facility]) Vital Signs (Past 12 Hours) Vital Signs Temp Pulse Pulse Resp BP BP Pulse Ox 10/28/22 07:00 09/13/22 07:00 98.1 F 78 20 178/83 H 96 09/13/22 06:28 61 16 113/67 95 09/13/22 06:25 09/13/22 03:44 69 21 114/66 98 09/13/22 03:20 99 09/13/22 02:50 97.9 F 74 21 120/71 87 L O2 Del Method O2 Flow Rate 09/13/22 07:00 Nasal Cannula 2 09/13/22 07:00 Nasal Cannula 3 09/13/22 06:28 Nasal Cannula 2 09/13/22 06:25 Nasal Cannula 2 09/13/22 03:44 09/13/22 03:20 Nasal Cannula 2 09/13/22 02:50 Room Air PG Care Time/CCT Total # of Minutes Spent Total Time Spent with Patient: Total time spent is greater than 50% in coordination of care (as documented) at patient's floor/unit and/or counseling patient: Coding Level of Care Code 09164 Subseq Obs Care Lvl 2 Diagnoses Acute alteration in mental status R41.82 Status post craniectomy Z98.890 Dizziness R42 Syncope R55 Syncope type: unspecified Restless leg syndrome G25.81 Hypertension I10 Hypertension type: essential hypertension Hyperlipidemia E78.5 Hyperlipidemia type: unspecified COPD (chronic obstructive pulmonary disease) J44.9 COPD type: unspecified COPD GERD (gastroesophageal reflux disease) K21.9 Esophagitis presence: esophagitis presence not specified Mixed anxiety and depressive disorder F41.8 Neuroendocrine tumor D3A.8 Time Spent (min) 35 (1) Syncope Syncope type: unspecified Qualified Code(s): R55 - Syncope and collapse (2) Hypertension Hypertension type: essential hypertension Qualified Code(s): I10 - Essential (primary) hypertension (3) Hyperlipidemia Hyperlipidemia type: unspecified Qualified Code(s): E78.5 - Hyperlipidemia, unspecified (4) COPD (chronic obstructive pulmonary disease) COPD type: unspecified COPD Qualified Code(s): J44.9 - Chronic obstructive pulmonary disease, unspecified (5) GERD (gastroesophageal reflux disease) Esophagitis presence: esophagitis presence not specified Qualified Code(s): K21.9 - Gastro-esophageal reflux disease without esophagitis
[2022-09-14] MEDS: NSS + 20MEQ KCL 20 MEQ/1,000 ML BAG IV SCH (03:02)
[2022-09-14 07:07] LABS: Basophils # (auto) 0.03 K/uL (0-0.2); Basophils % (auto) 0.8 %; Eosinophils # (auto) 0.08 K/uL (0-0.50); Eosinophils % (auto) 2.1 %; Hematocrit (blood only) 37.1 % (34.1-44.9); Hemoglobin 11.6 g/dl (12.0-16.0); Immature Granulocytes # (auto) 0.01 K/uL (0.00-0.02); Immature Granulocytes % (auto) 0.3 %; Lymphocytes # (auto) 0.78 K/uL (1.2-3.4); Lymphocytes % (auto) 20.6 %; Mean Corpuscular Hemoglobin 30.3 pg (25.0-34.0); Mean Corpuscular Hgb Conc 31.3 g/dL (32.0-36.0); Mean Corpuscular Volume 96.9 fL (80.0-100.0); Mean Platelet Volume 9.4 fL (9.4-12.3); Monocytes # (auto) 0.32 K/uL (0.24-0.82); Monocytes % (auto) 8.4 %; Neutrophils # (auto) 2.57 K/uL (1.4-6.5); Neutrophils % (auto) 67.8 %; Platelet Count 169 K/uL (130-400); RDW Coefficient of Variation 13.7 % (11.5-14.5); RDW Standard Deviation 48.6 fL (36.4-46.3); Red Blood Count 3.83 M/uL (3.93-5.22); White Blood Count 3.79 K/ul (4.8-10.8)
[2022-09-14 07:30] LABS: Albumin Globulin Ratio 1.6 (0.9-2); Albumin Level 3.6 gm/dl (3.4-5.0); Bilirubin,Total 0.7 mg/dl (0.2-1.0); Calcium 8.3 mg/dl (8.5-10.1); Creatinine Clr Calc Pharmacy 85.7 ml/min; Globulin 2.2 gm/dl (2.5-4.0); Magnesium 1.8 mg/dl (1.7-2.4); Potassium 3.7 mmol/L (3.5-5.1); Total Protein 5.8 gm/dl (6.0-8.3)
[2022-09-14] MEDS: FAMOTIDINE 20 MG in SYRINGE 3 ML IV SCH (08:29)
[2022-09-14] MEDS ORDERED: INFLUENZA VACCINE HIGH DOSE PF 65+ 0.7 ML SYR IM ONE (09:00)
[2022-09-14 12:21] VITALS: PULSE 76; TEMP 98.2; O2SAT 93
--- NOTE | 2022-09-14 12:57 | Discharge Summary ---
Date of Service September 14, 2022 Admission HPI Per Admitting Provider The patient is a 71-year-old female with a past medical history including pneumonia, H. pylori infection, lung emphysema, hypertension, cervical spondylosis, hyperlipidemia, chronic pain syndrome, brain lesion, restless leg syndrome, syncope, Lisfranc fracture, neuroendocrine tumor, status post craniectomy, stroke, occipital neuralgia, generalized osteoarthritis, basilar artery aneurysm, hypertension, mixed anxiety and depressive disorder, history of vulvar cancer and allergic rhinitis. The patient presents to the emergency department as noted above. At the time my examination, the patient is sedated and difficult to arouse, but with stable vital signs and oxygenation status. Principal Diagnosis acute metabolic encephalopathy Discharge Exam The patient is awake, agitated HEENT--PERRL, EOMI, mucous membranes and oropharynx mildly dry Neck--supple. No JVD. No bruits. Thyroid normal, trachea midline, no adenopathy. Heart--normal S1 and S2. No murmurs, rubs or gallops. Lungs--clear bilaterally, no respiratory distress, no accessory muscle use. Abdomen--normal bowel sounds and soft. Mild epigastric and left sided abdominal pain Extremities--no cyanosis or clubbing. No edema. Dermatologic--normal skin turgor, normal color, no abnormal lymph nodes, no rash. Neurologic--agitated Rheumatologic--normal range of motion. Psychiatric--unable to assess Discharge Data Allergies Allergy/AdvReac Type Severity Reaction Status Date / Time codeine Allergy Unknown itching Verified 08/14/22 10:19 Consultations 09/13/22 05:17 ED Decision to Admit Stat 09/14/22 06:19 Consult Behavioral Health Liaison Routine Ordered Studies 09/13/22 02:43 CT head/brain wo con Urgent Hospital Course (1) Acute alteration in mental status: Acute metabolic encephalopathy, most likely secondary to opitaes, cetirizine, Now resolved. patient now at baseline It was gathetrerd she took Methadone and Oxycodone and also cetirizine Due to respiratory depression, narcan 0.4mg was administerd and patient woke up, but became very agitaated and confused PRN Haldol for agitation But will prefer to let the opiates wash out her system Continue to monitor Seizure precautions (2) Status post craniectomy: Status post craniectomy along right posterior lateral occipital region with metallic plate- Mild nonspecific extra-axial soft tissue fullness is likely postoperative (3) Dizziness: Patient did receive meclizine 25 mg p.o. in ED, which is likely adding to the sedative effect of the oxycodone and methadone (4) Syncope: (5) Restless leg syndrome: (6) Hypertension: (7) Hyperlipidemia: (8) COPD (chronic obstructive pulmonary disease): (9) GERD (gastroesophageal reflux disease): Placed on famotidine 20 mg IV every 12 hours (10) Mixed anxiety and depressive disorder: (11) Neuroendocrine tumor: Plan d/c home Total Time Total Time Spent Total Time Spent (In Minutes): 35 Discharge Plan Discharge Items Patient Disposition: Home - Self-Care Reason For Visit: UNRESPONSIVE EPISODE Discharge Diagnosis: acute metabolic encephalopathy Activity: Resume your previous activity Non-emergency contact: Primary Care Provider and Oncologist Call non-emergency contact if: you have any medication questions Follow-up/Referrals: Yelena Keita MD [Primary Care Provider] - Diet: Regular Addtl Attending Provider Instructions: please make appointment to follow up with your oncologist Pending Studies at Discharge: No Stand-Alone Forms: My [facility] [place]aka, Smoking Cessation Medications and DC Order Prescriptions: Continued solifenacin [Vesicare] 5 mg tablet 5 mg PO HS gabapentin 600 mg tablet 600 mg PO TID Qty: 90 0RF Lift Chair Misc 1 ea .Route ONCE Qty: 1 0RF Rx Instructions: LIFT CHAIR MECHANISM. DX: Z74.09. albuterol sulfate 90 mcg/actuation HFA aerosol inhaler 2 puff inhalation Q6H PRN (Reason: shortness of breath or wheezing) Qty: 8.5 1RF omeprazole 20 mg tablet,delayed release (DR/EC) 20 mg PO DAILY Qty: 90 3RF phenazopyridine [Pyridium] 200 mg tablet 200 mg PO TID PRN (Reason: pain) Qty: 6 0RF fluticasone propionate 50 mcg/actuation spray,suspension See Rx Instructions .ROUTE .COMPLEX Qty: 16 5RF Dose Instruction: USE 2 SPRAYS INTO EACH NOSTRIL DAILY NEEDED FOR ALLERGY SYMPTOMS. Rx Instructions: USE 2 SPRAYS INTO EACH NOSTRIL DAILY NEEDED FOR ALLERGY SYMPTOMS. amlodipine 5 mg tablet 5 mg PO DAILY Qty: 90 3RF carbidopa-levodopa 25-250 mg tablet See Rx Instructions .ROUTE .COMPLEX Qty: 180 1RF Dose Instruction: TAKE ONE TABLET BY MOUTH 2 TIMES A DAY Rx Instructions: TAKE ONE TABLET BY MOUTH 2 TIMES A DAY clonidine HCl 0.1 mg tablet 0.1 mg PO BID Qty: 60 1RF aspirin 81 mg tablet,delayed release (DR/EC) 81 mg PO DAILY lamotrigine 25 mg tablet 50 mg PO HS duloxetine 20 mg capsule,delayed release(DR/EC) 20 mg PO DAILY Rx Instructions: afternoon doxepin 25 mg capsule 25 mg PO HS oxycodone 5 mg tablet 5 mg PO Q4H PRN (Reason: pain) acetaminophen 500 mg capsule 1,000 mg PO QID cetirizine 10 mg tablet 10 mg PO DAILY methadone 10 mg tablet 10 mg PO TID Rx Instructions: total dose = 15mg TID; may take 4x/day ibuprofen 200 mg capsule 200 mg PO DAILY melatonin 12 mg tablet 12 mg PO HS PRN Discharge Orders: Discharge Order (Routine); Ordered 09/14/22 Ordered By: Jw Pollack Admission Data Admit Date/Time: 09/13/22 05:39 Attending Provider: Jw Pollack Admit Provider: Kameron Wise Primary Care Provider: Yelena Keita Other Providers: Kameron Wise Coding Level of Care Code D/C DAY MANAGEMENT >30 MINS Diagnoses Acute alteration in mental status R41.82 Status post craniectomy Z98.890 Dizziness R42 Syncope R55 Syncope type: unspecified Restless leg syndrome G25.81 Hypertension I10 Hypertension type: essential hypertension Hyperlipidemia E78.5 Hyperlipidemia type: unspecified COPD (chronic obstructive pulmonary disease) J44.9 COPD type: unspecified COPD GERD (gastroesophageal reflux disease) K21.9 Esophagitis presence: esophagitis presence not specified Mixed anxiety and depressive disorder F41.8 Neuroendocrine tumor D3A.8 Time Spent (min) 35
[2022-09-14 13:31] VITALS: BP 178/83
--- NOTE | 2022-09-14 22:54 | Electrocardiogram Report ---
Test Reason : Blood Pressure : / mmHG Vent. Rate : 073 BPM Atrial Rate : 073 BPM P-R Int : 172 ms QRS Dur : 102 ms QT Int : 428 ms P-R-T Axes : 040 -07 024 degrees QTc Int : 471 ms Normal sinus rhythm Possible Left atrial enlargement Borderline ECG When compared with ECG of 06-FEB-2021 10:58, QRS duration has increased Criteria for Septal infarct are no longer Present Confirmed by Bossman Ruiz ([id number]) on 09/14/2022 10:53:35 PM Referred By: REFERRED SELF Confirmed By:Bossman Ruiz
== END 2022-09-14 13:47 | disposition home or self-care (01) ==
LOC: ED 02:15 → 2N 02:15 → SUATTDRO 05:39 → 2N 06:25

== ENCOUNTER 2024-12-02 19:40 | Observation (INO) ==
[2024-12-02 21:57] LABS: Basophils # (auto) 0.03 K/uL (0.00-0.20); Basophils % (auto) 0.6 %; Eosinophils # (auto) 0.09 K/uL (0.00-0.50); Eosinophils % (auto) 1.7 %; Hemoglobin 13.5 g/dl (12.0-16.0); Immature Granulocytes # (auto) 0.01 K/uL (0.01-0.20); Immature Granulocytes % (auto) 0.2 %; Lymphocytes # (auto) 0.69 K/uL (1.20-3.40); Lymphocytes % (auto) 13.4 %; Mean Corpuscular Hgb Conc 30.7 g/dL (32.0-36.0); Mean Corpuscular Volume 94.4 fL (80.0-100.0); Mean Platelet Volume 9.4 fL (9.4-12.4); Monocytes # (auto) 0.44 K/uL (0.11-0.59); Monocytes % (auto) 8.5 %; Neutrophils # (auto) 3.89 K/uL (1.40-6.50); Neutrophils % (auto) 75.6 %; Platelet Count 220 K/uL (130-400); RDW Coefficient of Variation 14.1 % (11.5-14.5); RDW Standard Deviation 48.4 fL (36.4-46.3); Red Blood Count 4.66 M/uL (4.20-5.40); White Blood Count 5.15 K/ul (4.8-10.8)
[2024-12-02 22:08] LABS: Base Excess VBG 9.7 mEq/L; HCO3 VBG 38 mmol/L; Oxygen Saturation VBG < 60.0 %; PCO2 VBG 65 mmHg (38-50); PO2 VBG 33 mmHg; pH VBG 7.37 (7.36-7.41)
[2024-12-02 22:10] LABS: Alanine Aminotransferase < 3 U/L (7-52); Albumin Globulin Ratio 1.3 (0.9-2); Albumin Level 4.4 gm/dl (3.4-5.0); Alkaline Phosphatase 84 U/L (34-104); Anion Gap 7 (3-11); BUN Creatinine Ratio 15.7 (10-20); Bilirubin,Total 0.5 mg/dl (0.2-1.0); Blood Urea Nitrogen 8 mg/dl (6-23); Carbon Dioxide 32 mmol/L (21-32); Chloride 99 mmol/L (98-107); Creatine Kinase 45 U/L (26-192); Creatinine Clr Calc Pharmacy 94.7 ml/min; Globulin 3.3 gm/dl (2.5-4.0); Glucose 106 mg/dl (70-99(Fasting)); Sodium 138 mmol/L (136-145); Total Protein 7.7 gm/dl (6.0-8.3)
[2024-12-02 22:16] LABS: Troponin I High Sensitivity 3.6 pg/ml (0-14)
[2024-12-02 22:18] LABS: Appearance Urine Clear (Clear); Bilirubin Urine Negative (Negative); Blood Urine Negative (Negative); Color Urine Yellow; Glucose Urine UA Negative (Negative); Ketones Urine Negative (Negative); Leukocyte Esterase Urine Negative (Negative); Nitrite Urine Negative (Negative); Protein Urine Negative (Negative); Specific Gravity Urine 1.006 (1.000-1.030); Urobilinogen Urine Negative (Negative); pH Urine 8.5 (4.5-7.5)
[2024-12-02 22:29] LABS: Adenovirus PCR Not Detected (NotDetected); Bordetella parapertussis PCR Not Detected (NotDetected); Bordetella pertussis PCR Not Detected (NotDetected); Chlamydia pneumoniae PCR Not Detected (NotDetected); Coronavirus 229E PCR Not Detected (NotDetected); Coronavirus CoV-2 (COVID19)PCR Not Detected (NotDetected); Coronavirus HKU1 PCR Not Detected (NotDetected); Coronavirus NL63 PCR Not Detected (NotDetected); Coronavirus OC43PCR Not Detected (NotDetected); Human Metapneumovirus PCR Not Detected (NotDetected); Influenza A PCR Not Detected (NotDetected); Influenza B PCR Not Detected (NotDetected); Mycoplasma pneumoniae PCR Not Detected (NotDetected); Parainfluenza Virus 1 PCR Not Detected (NotDetected); Parainfluenza Virus 2 PCR Not Detected (NotDetected); Parainfluenza Virus 3 PCR Not Detected (NotDetected); Parainfluenza Virus 4 PCR Not Detected (NotDetected); Respiratory Syncytial VirusPCR Not Detected (NotDetected); Rhinovirus/Enterovirus PCR Not Detected (NotDetected)
[2024-12-02] MEDS: OPTIRAY 320 125ml IV ONE (22:35)
[2024-12-02] MEDS: SODIUM CHLORIDE 0.9% 500 ML IV ONE (22:38)
--- NOTE | 2024-12-02 22:56 | Emergency Department Note ---
History of Present Illness General Chief complaint: Shortness of Breath/Dyspnea Stated complaint: SHORTNESS OF BREATH, ABD PAIN Time Seen by Provider: 12/02/24 21:26 History of Present Illness Maximum Pain Intensity: 8 Patricia Caro is a 73 year old female with metastatic neuroendocrine tumor on palliative care for the cancer presents ER complaining of difficulty walking, chest pain, dyspnea and abdominal pain. Patient sats were in the mid 80s per nursing. Patient denies fever, chills, vomiting, diarrhea. She states he feels very weak and too weak to go home. Home Medications Medication Instructions Recorded Confirmed Type lamotrigine 25 mg tablet 50 mg PO HS 09/20/21 12/03/24 History duloxetine 60 mg capsule,delayed 60 mg PO QAM 04/24/23 12/03/24 History release duloxetine 30 mg capsule,delayed 30 mg PO QPM 09/08/23 12/03/24 History release oxycodone 10 mg tablet 10 mg PO .Q4-6HRS PRN Breakthrough 06/29/24 12/03/24 History Pain sucralfate 1 gram tablet (Carafate) 1 g PO Q6H PRN Dysphagia #120 tabs 07/26/24 12/03/24 Rx albuterol sulfate 90 mcg/actuation 2 puff inhalation Q6H PRN 08/20/24 12/03/24 Rx aerosol inhaler shortness of breath or wheezing #8.5 grams carbidopa 25 mg-levodopa 250 mg 1 tab PO BID 28 days #56 tabs 09/23/24 12/03/24 Rx tablet amlodipine 2.5 mg tablet 2.5 mg PO DAILY #30 tabs 09/28/24 12/03/24 Rx amlodipine 5 mg tablet 5 mg PO DAILY #30 tabs 09/28/24 12/03/24 Rx solifenacin 10 mg tablet 10 mg PO DAILY #90 tabs 10/13/24 12/03/24 Rx aspirin 81 mg tablet,delayed 81 mg PO DAILY 12/03/24 12/03/24 History release fluticasone propionate 50 2 spray intranasal DAILY PRN 12/03/24 12/03/24 History mcg/actuation nasal Allergy Symptoms spray,suspension gabapentin 300 mg capsule 300 mg PO TID 12/03/24 12/03/24 History methadone 10 mg tablet 20 mg PO TID 12/03/24 12/03/24 History methadone 5 mg tablet 5 mg PO TID 12/03/24 12/03/24 History omeprazole 20 mg tablet,delayed 20 mg PO QAM 12/03/24 12/03/24 History release perphenazine 8 mg tablet 8 mg PO HS 12/03/24 12/03/24 History Allergies Allergy/AdvReac Type Severity Reaction Status Date / Time codeine Allergy Unknown itching Verified 08/20/24 11:51 Past Med/Surg History Problem List (Updated 12/03/24 @ 01:46 by Shanon Narvaez MD) Cystitis Constipation Acute hypoxic respiratory failure Overactive bladder (Chronic) 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) COPD (chronic obstructive pulmonary disease) (Chronic) Spinal stenosis (Chronic) GERD (gastroesophageal reflux disease) (Chronic) HTN (hypertension) (Chronic 01/06/15) Mixed anxiety and depressive disorder (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) Emphysema lung (Chronic) Depression (Chronic) Hypertension (Acute) Cervical spondylosis (Acute) Generalized muscle weakness (Acute) Allergic rhinitis (Acute) 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 pylori infection Stomach ulcer Surgical History (Updated 08/23/24 @ 13:50 by Yelena Keita MD) Status post right knee replacement S/P excision of lipoma History of spinal surgery LUMBAR FUSION History of brain surgery (08/17/19) H/O brain surgery (03/29/21) Resection of Occipital Subgaleal Lesion Dr. Curt Wen at [facility] H/O exploratory laparotomy History of anesthesia reaction PT STATES THAT SHE WOKE UP TWICE DURING PREVIOUS COLONOSCOPY AND WAS ADVISED TO ALERT STAFF OF THIS FOR FUTURE PROCEDURES. History of surgery REMOVAL OF RIGHT LABIA FOLLOWING DX OF VULVA CANCER Family History Mother , Passed Age 90's due to stroke Depression Hypertension Anxiety Stroke Sister Depression Hypertension Cerebral aneurysm Anxiety Father , in his mid to later 40s of an [place] Hypertension Myocardial infarction Cardiac disorder Anxiety Lymphoma Other Family history non-contributory Has no children Denies family history of Ovarian cancer Prostate cancer Breast cancer Colorectal cancer Social History Smoking Status: Former smoker Tobacco Type: Cigarettes Age Started Using Tobacco: 20; Age Quit Using Tobacco: 20; packs per day: 0.25; Cigarettes Per Day: 20; Second Hand Exposure: Yes; Do You Dip or Chew Tobacco: No; Hx Alcohol Use: No Hx Substance Use: No Preferred Language: Citizen Of [place] Communication Ability: Effective Visual Impairment: No Limitations Hearing Ability: Hard of Hearing Architectural Practice Manager Required: No Beliefs That Will Affect Care: None marital status: / Current Living Situation: Alone Current Living Situation Comment: Home with caregivers per patient current occupational status: retired 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 [employer] How many Children do You have: 0 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) Feels Safe at Home: Yes Childhood Exposure to Second-Hand Smoke: Yes Diet: regular caffeine: Yes (half a cup of coffee daily) during the past year weight has: remained stable Dental Care, Regularly: Yes Physical Activity Frequency: Does not Exercise Seatbelt Use: always Sunscreen Use: No Assistive Devices: Cane and Scooter/Electric Scooter Review of Systems A total of 10 systems reviewed and were otherwise negative Physical Exam Vital Signs Vital Signs - 24 hr 12/02/24 19:56 12/02/24 20:00 12/02/24 20:00 Temperature 37.3 C Temperature Source Oral Pulse Rate 92 H 99 H Pulse Rate [Apical] Respiratory Rate 18 Respiratory Effort / Characteristics Non-Labored Respiratory Depth Normal Respiratory Pattern Blood Pressure 163/96 H Blood Pressure [Right Arm] Blood Pressure Mean 118 Blood Pressure Mean [Right Arm] Pulse Oximetry 94 Oxygen Delivery Method Room Air Oxygen Flow Rate Sepsis Recent Fever Within 48 Hours No Sepsis New/Unexplained Change in Mental Status No Sepsis Action Taken by Nursing No Action Required Oxygen Flow Rate - Titration Pulse Oximetry Post Tiitration 12/02/24 20:00 12/02/24 21:27 12/02/24 21:33 Temperature Temperature Source Pulse Rate Pulse Rate [Apical] 76 Respiratory Rate 18 Respiratory Effort / Characteristics Respiratory Depth Respiratory Pattern Blood Pressure Blood Pressure [Right Arm] 164/93 H Blood Pressure Mean Blood Pressure Mean [Right Arm] 116 Pulse Oximetry 92 86 L Oxygen Delivery Method Room Air Nasal Cannula Nasal Cannula Oxygen Flow Rate 2 0 Sepsis Recent Fever Within 48 Hours Sepsis New/Unexplained Change in Mental Status Sepsis Action Taken by Nursing Oxygen Flow Rate - Titration 2 Pulse Oximetry Post Tiitration 92 12/02/24 22:45 12/02/24 23:00 12/03/24 00:00 Temperature 36.7 C Temperature Source Oral Pulse Rate Pulse Rate [Apical] 68 68 68 Respiratory Rate 20 17 20 Respiratory Effort / Characteristics Non-Labored Non-Labored Respiratory Depth Normal Normal Respiratory Pattern Regular Regular Blood Pressure Blood Pressure [Right Arm] 149/87 H 150/92 H 152/86 H Blood Pressure Mean Blood Pressure Mean [Right Arm] 107 111 108 Pulse Oximetry 96 95 95 Oxygen Delivery Method Nasal Cannula Nasal Cannula Nasal Cannula Oxygen Flow Rate 2 2 2 Sepsis Recent Fever Within 48 Hours Sepsis New/Unexplained Change in Mental Status Sepsis Action Taken by Nursing Oxygen Flow Rate - Titration Pulse Oximetry Post Tiitration VITALS: Vitals are noted on the nurse's note and reviewed by myself. Vital signs O2 sats were in the 80s but improved a nasal cannula GENERAL: Elderly female weak appearing SKIN: The skin was without rashes, erythema, edema, or bruising. There is no tenting of the skin. Capillary reflex less than 2 seconds. HEAD: Normocephalic atraumatic. EARS: External auditory canals clear EYES: Pupils equal round and reactive to light and accommodation. Conjunctivae without injection, sclerae without icterus. Extraocular movements intact. NOSE: Patent, no discharge. MOUTH: Mucous membranes mildly dry. Pharynx without erythema or exudate. Uvula midline. Airway patent. Tongue does not deviate. NECK: Supple without nuchal rigidity. No lymphadenopathy. No thyromegaly. Cervical spine is nontender. No JVD. HEART: Regular rate and rhythm LUNGS: Clear to auscultation bilaterally without wheezes, rales or rhonchi. No retractions or accessory muscle use. ABDOMEN: Positive bowel sounds x 4. Normal tympanic percussion. Soft, diffusely tender to palpation, without masses or organomegaly. Joshi sign negative. No guarding or rebound tenderness. No CVA tenderness MUSCULOSKELETAL: No muscle atrophy, erythema, or edema noted. NEURO: Patient was alert and oriented to person place and time. Normal sensation to light and sharp touch. No focal neurological deficits. Course Administered Medications Discontinued Medications Sodium Chloride (Nss) 500 mls @ 999 mls/hr IV .Q31M ONE Stop: 12/02/24 22:16 Last Infusion: 12/02/24 23:16 Dose: Infused Documented By: Admin: 12/02/24 22:38 Dose: 999 mls/hr Documented By: IDALIA Ioversol (Optiray 320 125ml) 125 ml IV ONCE ONE Stop: 12/02/24 22:36 Last Admin: 12/02/24 22:35 Dose: 118 ml Documented By: QUAN Methylprednisolone (Methylprednisolone 125 Mg/2 Ml Vial) 125 mg IV NOW STA Stop: 12/03/24 00:44 Last Admin: 12/03/24 00:49 Dose: 125 mg Documented By: EL Medical Decision Making Medical Records Attestation: I reviewed the patient's medical records. Home Medications Current Medication List: was personally reviewed by me Laboratory Data Attestation: I reviewed the patient's lab results. 12/02/24 21:18 12/02/24 22:44 Lab Results 12/02/24 12/02/24 12/02/24 Range/Units 21:18 21:30 21:55 WBC 5.15 (4.8-10.8) K/ul RBC 4.66 (4.20-5.40) M/uL Hgb 13.5 (12.0-16.0) g/dl Hct 44.0 (37.0-47.0) % MCV 94.4 (80.0-100.0) fL MCH 29.0 (25.0-34.0) pg MCHC 30.7 L (32.0-36.0) g/dL RDW Std Deviation 48.4 H (36.4-46.3) fL RDW Coeff of Gingre 14.1 (11.5-14.5) % Plt Count 220 (130-400) K/uL MPV 9.4 (9.4-12.4) fL Immature Gran % (Auto) 0.2 % Neut % (Auto) 75.6 % Lymph % (Auto) 13.4 % [place] % (Auto) 8.5 % Eos % (Auto) 1.7 % Baso % (Auto) 0.6 % Neut # (Auto) 3.89 (1.40-6.50) K/uL Lymph # (Auto) 0.69 L (1.20-3.40) K/uL [place] # (Auto) 0.44 (0.11-0.59) K/uL Eos # (Auto) 0.09 (0.00-0.50) K/uL Baso # (Auto) 0.03 (0.00-0.20) K/uL Immature Gran # (Auto) 0.01 (0.01-0.20) K/uL VBG pH 7.37 (7.36-7.41) VBG pCO2 65 H (38-50) mmHg VBG pO2 33 mmHg VBG HCO3 38 mmol/L VBG O2 Saturation < 60.0 % VBG Base Excess 9.7 mEq/L Sodium 138 (136-145) mmol/L Potassium TNP Chloride 99 (98-107) mmol/L Carbon Dioxide 32 (21-32) mmol/L Anion Gap 7 (3-11) BUN 8 (6-23) mg/dl Creatinine 0.51 L (0.6-1.2) mg/dl Est Cr Clr Drug Dosing 94.7 ml/min eGFR 99.73 BUN/Creatinine Ratio 15.7 (10-20) Glucose 106 H (70-99(Fasting)) mg/dl Calcium 9.0 (8.6-10.3) mg/dl Magnesium 2.0 (1.7-2.4) mg/dl Total Bilirubin 0.5 (0.2-1.0) mg/dl AST TNP ALT < 3 L (7-52) U/L Alkaline Phosphatase 84 (34-104) U/L Total Creatine Kinase 45 (26-192) U/L Troponin I High Sens 3.6 (0-14) pg/ml Total Protein 7.7 (6.0-8.3) gm/dl Albumin 4.4 (3.4-5.0) gm/dl Globulin 3.3 (2.5-4.0) gm/dl Albumin/Globulin Ratio 1.3 (0.9-2) Urine Color Yellow Urine Appearance Clear (Clear) Urine pH 8.5 H (4.5-7.5) Ur Specific [place] 1.006 (1.000-1.030) Urine Protein Negative (Negative) Urine Glucose (UA) Negative (Negative) Urine Ketones Negative (Negative) Urine Blood Negative (Negative) Urine Nitrite Negative (Negative) Urine Bilirubin Negative (Negative) Urine Urobilinogen Negative (Negative) Ur Leukocyte Esterase Negative (Negative) Adenovirus (PCR) Not Detected (NotDetected) B. pertussis DNA (PCR) Not Detected (NotDetected) B.parapertussis DNA PCR Not Detected (NotDetected) C. pneumoniae DNA (PCR) Not Detected (NotDetected) Coronavirus OC43 (PCR) Not Detected (NotDetected) Coronavirus HKU1 (PCR) Not Detected (NotDetected) Coronavirus 229E (PCR) Not Detected (NotDetected) SARS-CoV-2 (PCR) Not Detected (NotDetected) Coronavirus NL63 (PCR) Not Detected (NotDetected) Human Metapneumovir PCR Not Detected (NotDetected) Influenza Type A (PCR) Not Detected (NotDetected) Influenza Type B (PCR) Not Detected (NotDetected) M. pneumoniae (PCR) Not Detected (NotDetected) Parainfluenza 1 (PCR) Not Detected (NotDetected) Parainfluenza 2 (PCR) Not Detected (NotDetected) Parainfluenza 3 (PCR) Not Detected (NotDetected) Parainfluenza 4 (PCR) Not Detected (NotDetected) RSV (PCR) Not Detected (NotDetected) Entero/Rhino (PCR) Not Detected (NotDetected) 12/02/24 Range/Units 22:44 WBC (4.8-10.8) K/ul RBC (4.20-5.40) M/uL Hgb (12.0-16.0) g/dl Hct (37.0-47.0) % MCV (80.0-100.0) fL MCH (25.0-34.0) pg MCHC (32.0-36.0) g/dL RDW Std Deviation (36.4-46.3) fL RDW Coeff of Ginger (11.5-14.5) % Plt Count (130-400) K/uL MPV (9.4-12.4) fL Immature Gran % (Auto) % Neut % (Auto) % Lymph % (Auto) % [place] % (Auto) % Eos % (Auto) % Baso % (Auto) % Neut # (Auto) (1.40-6.50) K/uL Lymph # (Auto) (1.20-3.40) K/uL [place] # (Auto) (0.11-0.59) K/uL Eos # (Auto) (0.00-0.50) K/uL Baso # (Auto) (0.00-0.20) K/uL Immature Gran # (Auto) (0.01-0.20) K/uL VBG pH (7.36-7.41) VBG pCO2 (38-50) mmHg VBG pO2 mmHg VBG HCO3 mmol/L VBG O2 Saturation % VBG Base Excess mEq/L Sodium (136-145) mmol/L Potassium 3.4 L Chloride (98-107) mmol/L Carbon Dioxide (21-32) mmol/L Anion Gap (3-11) BUN (6-23) mg/dl Creatinine (0.6-1.2) mg/dl Est Cr Clr Drug Dosing ml/min eGFR BUN/Creatinine Ratio (10-20) Glucose (70-99(Fasting)) mg/dl Calcium (8.6-10.3) mg/dl Magnesium (1.7-2.4) mg/dl Total Bilirubin (0.2-1.0) mg/dl AST 8 L ALT (7-52) U/L Alkaline Phosphatase (34-104) U/L Total Creatine Kinase (26-192) U/L Troponin I High Sens (0-14) pg/ml Total Protein (6.0-8.3) gm/dl Albumin (3.4-5.0) gm/dl Globulin (2.5-4.0) gm/dl Albumin/Globulin Ratio (0.9-2) Urine Color Urine Appearance (Clear) Urine pH (4.5-7.5) Ur Specific [place] (1.000-1.030) Urine Protein (Negative) Urine Glucose (UA) (Negative) Urine Ketones (Negative) Urine Blood (Negative) Urine Nitrite (Negative) Urine Bilirubin (Negative) Urine Urobilinogen (Negative) Ur Leukocyte Esterase (Negative) Adenovirus (PCR) (NotDetected) B. pertussis DNA (PCR) (NotDetected) B.parapertussis DNA PCR (NotDetected) C. pneumoniae DNA (PCR) (NotDetected) Coronavirus OC43 (PCR) (NotDetected) Coronavirus HKU1 (PCR) (NotDetected) Coronavirus 229E (PCR) (NotDetected) SARS-CoV-2 (PCR) (NotDetected) Coronavirus NL63 (PCR) (NotDetected) Human Metapneumovir PCR (NotDetected) Influenza Type A (PCR) (NotDetected) Influenza Type B (PCR) (NotDetected) M. pneumoniae (PCR) (NotDetected) Parainfluenza 1 (PCR) (NotDetected) Parainfluenza 2 (PCR) (NotDetected) Parainfluenza 3 (PCR) (NotDetected) Parainfluenza 4 (PCR) (NotDetected) RSV (PCR) (NotDetected) Entero/Rhino (PCR) (NotDetected) Imaging Data Attestation: I personally reviewed and interpreted this imaging study as follows: Radiologist's Impression: Chest X-Ray 12/02/24 21:17 Exam(s): XR CXR 1 VIEW EXAM: XR Chest, 1 View CLINICAL HISTORY: Reason for exam: Dyspnea. TECHNIQUE: Frontal view of the chest. COMPARISON: 01/05/2016 FINDINGS: Lungs: No infiltrate. No atelectasis. No CHF. Pleural space: No pleural effusion. No pneumothorax. Heart: Unremarkable. No cardiomegaly. Mediastinum: Unremarkable. Normal mediastinal contour. Bones/joints: Unremarkable. No acute fracture. IMPRESSION: No acute abnormality. Electronically signed by: Fracisco Pa M.D. 12/02/24 23:04 PM Abdomen/Pelvis CT 12/02/24 21:44 Exam(s): CT ABDOMEN + PELVIS With Contrast IV Amt: 118 ML OPTIRAY 320 EXAM: CT Abdomen and Pelvis With Intravenous Contrast CLINICAL HISTORY: MURILLO, off balance, met CA, CP/sob/abd pain. TECHNIQUE: Axial computed tomography images of the abdomen and pelvis with intravenous contrast. CTDI is 36.55 mGy and DLP is 1822.92 mGy-cm. Automated exposure control was utilized for the study. A dose lowering technique was utilized adhering to the principles of ALARA. CONTRAST: Patient received 118 ML OPTIRAY 320 of IV contrast COMPARISON: CTA chest 09/08/2023. FINDINGS: Lung bases: Mild atelectasis. No mass. No consolidation. ABDOMEN: Liver: Unremarkable. No mass. Gallbladder and bile ducts: Unremarkable. No calcified stones. Slight intrahepatic bile ductal dilatation. Distal common bile duct normal in caliber. Pancreas: Unremarkable. No mass. No ductal dilation. Spleen: Unremarkable. No splenomegaly. Adrenals: Unremarkable. No mass. Kidneys and ureters: No obstructive uropathy. Punctate nonobstructing right renal calculus. No obstructing renal or ureteral calculi. No hydronephrosis or hydroureter. Stomach and bowel: No obstruction or ileus. Abundant stool throughout the colon. Scattered sigmoid colon diverticuli without evidence for diverticulitis. PELVIS: Appendix: No findings to suggest acute appendicitis. Bladder: Unremarkable. No mass. Reproductive: Atrophic uterus. Ovaries not visualized. ABDOMEN and PELVIS: Intraperitoneal space: No free air. No free fluid. Bones/joints: No acute fracture. Degenerative and postoperative changes of the lumbar spine including laminectomy defects and bilateral pedicle screws. Heterogeneous right ilium, possibly related to bone graft donor site redemonstrated sclerotic changes at L1 and L2. Soft tissues: Unremarkable. Vasculature: Atherosclerotic vascular calcifications. No abdominal aortic aneurysm. Lymph nodes: Unremarkable. No enlarged lymph nodes. IMPRESSION: No evidence for metastatic disease. Senescent changes. No definite acute abnormality. Electronically signed by: Fracisco Pa M.D. 12/03/24 00:15 AM Chest CTA 12/02/24 21:44 Exam(s): CTA CHEST IV Amt: 118 ML OPTIRAY 320 EXAM: CT Angiography Chest With Intravenous Contrast CLINICAL HISTORY: MURILLO, off balance, met CA, CP/sob/abd pain. TECHNIQUE: Axial computed tomographic angiography images of the chest with intravenous contrast. CTDI is 12.77mGy and DLP is 412.21 mGy-cm. Automated exposure control was utilized for the study. A dose lowering technique was utilized adhering to the principles of ALARA. 3D and MIP reconstructed images were created and reviewed. COMPARISON: Chest x-ray 12/02/2024, CTA chest 09/08/2023 FINDINGS: Pulmonary arteries: No pulmonary embolism. Aorta: No thoracic aortic aneurysm or dissection. Atherosclerotic vascular calcifications. Lungs: Peribronchial thickening. Left hilar margaux mass with narrowing of bronchi and opacification of a left upper lobe probable lingular bronchus. Noncalcified lingular 8 mm nodule, increased from 09/08/2024. Mild bilateral dependent atelectasis. Pleural space: No pleural effusion. No pneumothorax. Heart: No cardiomegaly. No pericardial effusion. No evidence of RV dysfunction. Bones/joints: No acute fracture. Degenerative changes of the spine. Soft tissues: Unremarkable. Lymph nodes: Increased left hilar lymphadenopathy with a 2.3 x 2.4 cm lymph node/margaux mass. Associated bronchial narrowing with opacification of a left upper lobe bronchus. IMPRESSION: No pulmonary embolism. Development of left hilar lymphadenopathy with narrowing and opacification of the adjacent left upper lobe bronchi. 8 mm left upper lobe/lingular noncalcified nodule. Suspicious for metastatic disease. Mild peribronchial thickening suggestive of bronchitis. Electronically signed by: Fracisco Pa M.D. 12/03/24 00:[address] 12/02/24 21:44 Exam(s): CT HEAD Without Contrast EXAM: CT Head Without Intravenous Contrast CLINICAL HISTORY: MURILLO, off balance, met CA, CP/sob/abd pain. TECHNIQUE: Axial computed tomography images of the head/brain without intravenous contrast. CTDI is 36.55 mGy and DLP is 624.41 mGy-cm. Automated exposure control was utilized for the study. A dose lowering technique was utilized adhering to the principles of ALARA. COMPARISON: 05/10/2024. FINDINGS: Brain: Age-appropriate generalized atrophy. No acute stroke. Moderate diffuse supratentorial periventricular and subcortical white matter changes. No acute hemorrhage or abnormal extra-axial fluid collection. Ventricles: No hydrocephalus. No midline shift. Bones/joints: Status post right parietal craniectomy with overlying middle plate. No acute fracture. Soft tissues: Unremarkable. Sinuses: Unremarkable as visualized. No acute sinusitis. IMPRESSION: No acute abnormality. Electronically signed by: Fracisco Pa M.D. 12/02/24 23:54 PM MDM Narrative Prior records/ancillary studies reviewed and summarized above. Nursing notes reviewed. Additional history obtained from nursing. The patient's history was concerning for chest pain, difficulty breathing, abdominal pain and weakness in a cancer patient. Differential diagnosis: Etiologies such as progression of cancer, metabolic, infection, hypo/hyperglycemia, electrolyte abnormalities, cardiac sources, intracerebral event, toxicologic, neurologic, as well as others were entertained. Physical examination: As above. ER treatment provided: IV Lock An order was placed for continuous cardiac monitoring. The monitor shows a rate of 60-100 with a sinus rhythm per my interpretation. IV fluids On reassessment the patient felt better. Diagnostics interpretation by me: ECG: Ordered for weakness EKG: Normal sinus, normal nose, no acute ST-T wave changes. Impression normal sinus rhythm independent interpreted by myself The labs Independently Interpreted by myself revealed no worrisome leukocytosis Negative troponin Imaging studies: Imaging was reviewed and read by radiology as above Consultation: A consultation was placed with the hospitalist. The case was discussed and diagnostics were reviewed. The patient was evaluated in the ER for further treatment. Exam and history seem consistent with progression of her metastatic cancer with increasing weakness. Patient was too weak to go home. She was hypoxic on room air. Medicine was consulted case is discussed. She will be evaluated for possible admission. By the evaluation outlined above emergent etiologies such as infection, electrolyte abnormalities, cardiac sources, intracerebral event, toxologic, neurologic, abnormalities blood glucose, metabolic, as well as others were deemed relatively unlikely. The pt informed about the findings as listed above. All questions were answered and pleased with the treatment. The chart was completed utilizing [employer] Speech voice recognition software. Grammatical errors, random word insertions, pronoun errors, and incomplete sentences are an occassional consequence of this system due to software limitations, ambient noise, and hardware issues. Any formal questions or concerns about the content, text, or information contained within the body of this dictation should be directly addressed to the physician wet process assistant head miller for clarification. Impression & Plan Generalized muscle weakness, 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 Discharge Plan Visit Data Chief Complaint: Shortness of Breath/Dyspnea Stated Complaint: SHORTNESS OF BREATH, ABD PAIN ED Provider: Carmen Saldana ED Midlevel Provider: Jessica Augustin Discharge Problem: Generalized muscle weakness, 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 Patient Disposition: Being Evaluated by Hospitalist Condition: Fair Discharge Instructions Interventions: ED Discharge Assessment Last Done: 12/03/24 01:43
--- NOTE | 2024-12-02 23:05 | XRay Report ---
Exam(s): XR CXR 1 VIEW EXAM: XR Chest, 1 View CLINICAL HISTORY: Reason for exam: Dyspnea. TECHNIQUE: Frontal view of the chest. COMPARISON: 01/05/2016 FINDINGS: Lungs: No infiltrate. No atelectasis. No CHF. Pleural space: No pleural effusion. No pneumothorax. Heart: Unremarkable. No cardiomegaly. Mediastinum: Unremarkable. Normal mediastinal contour. Bones/joints: Unremarkable. No acute fracture. IMPRESSION: No acute abnormality. Electronically signed by: Fracisco Pa M.D. 12/02/24 23:04 PM
[2024-12-02 23:10] LABS: Potassium 3.4 mmol/L (3.5-5.1)
--- NOTE | 2024-12-02 23:54 | CT Scan Report ---
Exam(s): CT HEAD Without Contrast EXAM: CT Head Without Intravenous Contrast CLINICAL HISTORY: MURILLO, off balance, met CA, CP/sob/abd pain. TECHNIQUE: Axial computed tomography images of the head/brain without intravenous contrast. CTDI is 36.55 mGy and DLP is 624.41 mGy-cm. Automated exposure control was utilized for the study. A dose lowering technique was utilized adhering to the principles of ALARA. COMPARISON: 05/10/2024. FINDINGS: Brain: Age-appropriate generalized atrophy. No acute stroke. Moderate diffuse supratentorial periventricular and subcortical white matter changes. No acute hemorrhage or abnormal extra-axial fluid collection. Ventricles: No hydrocephalus. No midline shift. Bones/joints: Status post right parietal craniectomy with overlying middle plate. No acute fracture. Soft tissues: Unremarkable. Sinuses: Unremarkable as visualized. No acute sinusitis. IMPRESSION: No acute abnormality. Electronically signed by: Fracisco Pa M.D. 12/02/24 23:54 PM
--- NOTE | 2024-12-03 00:07 | CT Scan Report ---
Exam(s): CTA CHEST IV Amt: 118 ML OPTIRAY 320 EXAM: CT Angiography Chest With Intravenous Contrast CLINICAL HISTORY: MURILLO, off balance, met CA, CP/sob/abd pain. TECHNIQUE: Axial computed tomographic angiography images of the chest with intravenous contrast. CTDI is 12.77mGy and DLP is 412.21 mGy-cm. Automated exposure control was utilized for the study. A dose lowering technique was utilized adhering to the principles of ALARA. 3D and MIP reconstructed images were created and reviewed. COMPARISON: Chest x-ray 12/02/2024, CTA chest 09/08/2023 FINDINGS: Pulmonary arteries: No pulmonary embolism. Aorta: No thoracic aortic aneurysm or dissection. Atherosclerotic vascular calcifications. Lungs: Peribronchial thickening. Left hilar margaux mass with narrowing of bronchi and opacification of a left upper lobe probable lingular bronchus. Noncalcified lingular 8 mm nodule, increased from 09/08/2024. Mild bilateral dependent atelectasis. Pleural space: No pleural effusion. No pneumothorax. Heart: No cardiomegaly. No pericardial effusion. No evidence of RV dysfunction. Bones/joints: No acute fracture. Degenerative changes of the spine. Soft tissues: Unremarkable. Lymph nodes: Increased left hilar lymphadenopathy with a 2.3 x 2.4 cm lymph node/margaux mass. Associated bronchial narrowing with opacification of a left upper lobe bronchus. IMPRESSION: No pulmonary embolism. Development of left hilar lymphadenopathy with narrowing and opacification of the adjacent left upper lobe bronchi. 8 mm left upper lobe/lingular noncalcified nodule. Suspicious for metastatic disease. Mild peribronchial thickening suggestive of bronchitis. Electronically signed by: Fracisco Pa M.D. 12/03/24 00:05 AM
--- NOTE | 2024-12-03 00:16 | CT Scan Report ---
Exam(s): CT ABDOMEN + PELVIS With Contrast IV Amt: 118 ML OPTIRAY 320 EXAM: CT Abdomen and Pelvis With Intravenous Contrast CLINICAL HISTORY: MURILLO, off balance, met CA, CP/sob/abd pain. TECHNIQUE: Axial computed tomography images of the abdomen and pelvis with intravenous contrast. CTDI is 36.55 mGy and DLP is 1822.92 mGy-cm. Automated exposure control was utilized for the study. A dose lowering technique was utilized adhering to the principles of ALARA. CONTRAST: Patient received 118 ML OPTIRAY 320 of IV contrast COMPARISON: CTA chest 09/08/2023. FINDINGS: Lung bases: Mild atelectasis. No mass. No consolidation. ABDOMEN: Liver: Unremarkable. No mass. Gallbladder and bile ducts: Unremarkable. No calcified stones. Slight intrahepatic bile ductal dilatation. Distal common bile duct normal in caliber. Pancreas: Unremarkable. No mass. No ductal dilation. Spleen: Unremarkable. No splenomegaly. Adrenals: Unremarkable. No mass. Kidneys and ureters: No obstructive uropathy. Punctate nonobstructing right renal calculus. No obstructing renal or ureteral calculi. No hydronephrosis or hydroureter. Stomach and bowel: No obstruction or ileus. Abundant stool throughout the colon. Scattered sigmoid colon diverticuli without evidence for diverticulitis. PELVIS: Appendix: No findings to suggest acute appendicitis. Bladder: Unremarkable. No mass. Reproductive: Atrophic uterus. Ovaries not visualized. ABDOMEN and PELVIS: Intraperitoneal space: No free air. No free fluid. Bones/joints: No acute fracture. Degenerative and postoperative changes of the lumbar spine including laminectomy defects and bilateral pedicle screws. Heterogeneous right ilium, possibly related to bone graft donor site redemonstrated sclerotic changes at L1 and L2. Soft tissues: Unremarkable. Vasculature: Atherosclerotic vascular calcifications. No abdominal aortic aneurysm. Lymph nodes: Unremarkable. No enlarged lymph nodes. IMPRESSION: No evidence for metastatic disease. Senescent changes. No definite acute abnormality. Electronically signed by: Fracisco Pa M.D. 12/03/24 00:15 AM
--- NOTE | 2024-12-03 00:44 | Emergency Department Note ---
ED Visit Note I was consulted by the Advanced Practice Provider, Jessica Augustin PA-C. I performed a substantive portion of the visit. This includes aspects of: History: Patient is a 73-year-old female presenting with shortness of breath. Patient reportedly had saturations of 89% on room air with EMS. She has a history of metastatic cancer. She does not wear any supplemental oxygen at baseline. She reports that she has been very unstable on her feet and fell today. She reports chest pain and abdominal pain. Denies any fevers or chills. Reports feeling very weak and rundown. MDM: Laboratory workup interpreted myself showed normal WBC; slight hypercarbia (pCO2 65); slight hypokalemia (K 3.4); normal troponin. CXR negative for pneumonia, per my interpretation. UA negative for infection. CT head wo contrast negative for acute injury. CTA chest was negative for any evidence of PE. Noted to have some left hilar lymphadenopathy and an 8 mm left upper lobe nodule. Also has peribronchial thickening suggestive of bronchitis. CT abdomen/pelvis with IV contrast was negative for any acute pathology. Patient was given 125 mg IV Solu-Medrol for acute bronchitis and given her new oxygen requirement. Will be admitted to the hospitalist service for further evaluation. .
[2024-12-03] MEDS: methylPREDNISolone 125 MG/2 ML VIAL IV STA (00:49)
--- NOTE | 2024-12-03 01:03 | History & Physical Report ---
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 Acute hypoxic respiratory failure | COPD exacerbation Increasing LUZ - Patient with known COPD (no home oxygen) - Progressively worsening LUZ w/o associated chest pain since 1 month ago; also had productive cough during this time - Last TTE from 2020 w/ borderline dilated LA and EF 55-60%, otherwise unremarkable - Hypoxic at room air in the ED, corrected with NC at 2 lpm - Will admit to Med/Tele - Solumedrol 40 mg BID - Duoneb prn - Continue home inhaler - NC as needed with O2 goal of 88-92 - Will order TTE given worsening LUZ and b/l LE swelling B/l LE swelling and paresthesias - Started 2 days ago - May ne related to bony mets from known CA - Will order US to r/o DVT given hypercoagulable state - Will order B12 and Hgb A1c - Also endorsing weakness and states she has been using a wheelchair Discussed PT/OT eval to assess needs but patient not interested in physical therapy since she is in the process of having home health set up for her ("nurse is taking some exam"). Home health coordination could also be addressed while admitted if patient interested. Lives alone in a 1-story house Constipation - Pain with bm w/ straining likely 2/2 constipation - Likely secondary to chronic opiate use for cancer-related pain - Will order Miralax 34 mg daily; can titrate as necessary and continue after discharge Cystitis - Suprapubic pain with palpation and dysuria since 2 days ago - Will manage with Macrobid 100 mg PO bid for 5 days Chronic pain | Neuroendocrine tumor with mets - Patient w/ hx of neuroendocrine tumor with mets to bone in spine, shoulder - Uses methadone and oxycodone prn for breakthrough pain - Scheduled tylenol; scaled pain control with oxycodone 5 mg for mod pain and 10 mg for severe pain RLS - Continue Carvidopa/Levodopa GERD - Continue PPI Dispo: Med/Tele Fluids: none Diet: HH VTE ppx: Lovenox Code Status: FULL History of Present Illness Chief Complaint: SOB/LUZ Primary Care Provider: Yelena Keita MD Patient is a 73 y/o F w/ PMHx of COPD (not on home oxygen), neuroendocrine tumor w/ mets to bone, GERD, HTN, MDD, HLD who came to ED due to progressively worsening LUZ that began 1 month ago as well as pelvic pain, pain with bm, and bilateral LE tingling and weakness. Also endorsing a productive cough that began around the same time as LUZ, but is not accompanied by chest pain/pressure, syncope or near syncope, lightheadedness/dizziness, or other sxs. With regards to pelvic pain, describes it as a burning stabbing pain that occurs with urination as well as a more dull ache in suprapubic region; began a few days ago. Denies hematuria, frequency, or urgency. With regards to pain with defecation, patient is on chronic oxycodone and methadone for cancer-related pain, and not taking laxatives as an outpatient. States she needs to strain a lot for her bm to try and go everyday and her stools are hard and small. No hematochezia or melena. With regards to her b/l LE tingling, this began 2 days a go and was accompanied by weakness and imbalance, although after stating this she does endorse persistent imbalance for a few months now. No associated pain or skin changes. no recent trauma to her LE and is starting to use wheelchair more frequently, which has lead to some pain in her right shoulder. No other systemic sxs. ED Course: given 500 mL NSS bolus, given Solumedrol 125 mg IV x1 Labs/Imaging: CBC w/o leukocytosis, hemoglobin 13.5, platelets stable at 220. CMP with mild hypokalemia 3.4, otherwise no significant electrolyte abnormalities, renal markers wnl, bsg of 106. LFT wnl. U/A unremarkable. Respiratory biofire negative. CXR negative and w/o edema or effusions. CTAP w/o evidence of metastatic disease. Chest CTA w/o PE and noting development of left hilar lymphadenopathy with narrowing and opacification of the adjacent left upper lobe bronchi, 8 mm left upper lobe/lingular noncalcified nodule suspicious for metastatic disease. Mild peribronchial thickening suggestive of bronchitis. Head CT unremarkable. Medical History: [Reviewed] Medications: [Reviewed] Surgical History: [Reviewed] Family history: [Reviewed] Allergies: [Reviewed] Social History: [Reviewed] Code Status: FULL Allergies Allergy/AdvReac Type Severity Reaction Status Date / Time codeine Allergy Unknown itching Verified 08/20/24 11:51 Home Medications Medication Instructions Recorded Confirmed Type lamotrigine 25 mg tablet 50 mg PO HS 09/20/21 12/03/24 History duloxetine 60 mg capsule,delayed 60 mg PO QAM 04/24/23 12/03/24 History release duloxetine 30 mg capsule,delayed 30 mg PO QPM 09/08/23 12/03/24 History release oxycodone 10 mg tablet 10 mg PO .Q4-6HRS PRN Breakthrough 06/29/24 12/03/24 History Pain sucralfate 1 gram tablet (Carafate) 1 g PO Q6H PRN Dysphagia #120 tabs 07/26/24 12/03/24 Rx albuterol sulfate 90 mcg/actuation 2 puff inhalation Q6H PRN 08/20/24 12/03/24 Rx aerosol inhaler shortness of breath or wheezing #8.5 grams carbidopa 25 mg-levodopa 250 mg 1 tab PO BID 28 days #56 tabs 09/23/24 12/03/24 Rx tablet amlodipine 2.5 mg tablet 2.5 mg PO DAILY #30 tabs 09/28/24 12/03/24 Rx amlodipine 5 mg tablet 5 mg PO DAILY #30 tabs 09/28/24 12/03/24 Rx solifenacin 10 mg tablet 10 mg PO DAILY #90 tabs 10/13/24 12/03/24 Rx aspirin 81 mg tablet,delayed 81 mg PO DAILY 12/03/24 12/03/24 History release fluticasone propionate 50 2 spray intranasal DAILY PRN 12/03/24 12/03/24 History mcg/actuation nasal Allergy Symptoms spray,suspension gabapentin 300 mg capsule 300 mg PO TID 12/03/24 12/03/24 History methadone 10 mg tablet 20 mg PO TID 12/03/24 12/03/24 History methadone 5 mg tablet 5 mg PO TID 12/03/24 12/03/24 History omeprazole 20 mg tablet,delayed 20 mg PO QAM 12/03/24 12/03/24 History release perphenazine 8 mg tablet 8 mg PO HS 12/03/24 12/03/24 History Past Med/Surg History Problem List (Updated 12/03/24 @ 01:46 by Shanon Narvaez MD) Cystitis Constipation Acute hypoxic respiratory failure Overactive bladder (Chronic) 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) COPD (chronic obstructive pulmonary disease) (Chronic) Spinal stenosis (Chronic) GERD (gastroesophageal reflux disease) (Chronic) HTN (hypertension) (Chronic 01/06/15) Mixed anxiety and depressive disorder (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) Emphysema lung (Chronic) Depression (Chronic) Hypertension (Acute) Cervical spondylosis (Acute) Generalized muscle weakness (Acute) Allergic rhinitis (Acute) 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 pylori infection Stomach ulcer Surgical History (Updated 08/23/24 @ 13:50 by Yelena Keita MD) Status post right knee replacement S/P excision of lipoma History of spinal surgery LUMBAR FUSION History of brain surgery (08/17/19) H/O brain surgery (03/29/21) Resection of Occipital Subgaleal Lesion Dr. Curt Wen at [facility] H/O exploratory laparotomy History of anesthesia reaction PT STATES THAT SHE WOKE UP TWICE DURING PREVIOUS COLONOSCOPY AND WAS ADVISED TO ALERT STAFF OF THIS FOR FUTURE PROCEDURES. History of surgery REMOVAL OF RIGHT LABIA FOLLOWING DX OF VULVA CANCER Family History Mother , Passed Age 90's due to stroke Depression Hypertension Anxiety Stroke Sister Depression Hypertension Cerebral aneurysm Anxiety Father , in his mid to later 40s of an [place] Hypertension Myocardial infarction Cardiac disorder Anxiety Lymphoma Other Family history non-contributory Has no children Denies family history of Ovarian cancer Prostate cancer Breast cancer Colorectal cancer Social History Smoking Status: Never smoker Tobacco Type: Cigarettes Age Started Using Tobacco: 20; Age Quit Using Tobacco: 20; packs per day: 0.25; Cigarettes Per Day: 20; Second Hand Exposure: No; Do You Dip or Chew Tobacco: No; Tobacco Cessation Education Requested by Patient: No Hx Alcohol Use: No Hx Substance Use: No Preferred Language: Chilean Communication Ability: Effective Visual Impairment: No Limitations Hearing Ability: Hard of Hearing [employer] Required: No Beliefs That Will Affect Care: None marital status: / Current Living Situation: Alone Current Living Situation Comment: Home with caregivers per patient current occupational status: retired 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 [employer] How many Children do You have: 0 Other Information That Helps Us Care for You: No 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) Feels Safe at Home: Yes Safety Concerns: Feels Safe At This Time Childhood Exposure to Second-Hand Smoke: Yes Diet: regular caffeine: Yes (half a cup of coffee daily) during the past year weight has: remained stable Dental Care, Regularly: Yes Physical Activity Frequency: Does not Exercise Seatbelt Use: always Sunscreen Use: No Assistive Devices: Denture - Upper, Denture - Lower, Glasses and Scooter/Electric Scooter Review of Systems Review of Systems: As per HPI Physical Exam Physical Exam: GENERAL: AAOx3, afebrile, NAD HEAD: AT, NC EYES: SHELL, EOM intact CHEST: symmetric chest expansions CARDIO: RRR, no r/m/g PULMONARY: Expiratory wheezing in all lung rodriguez, no crackles, no respiratory distress GI: tenderness to palpation in suprapubic region and more mild in LLQ, soft and non distended EXTREMITIES: swelling with 1+ pitting in b/l LE L>R, hyperkeratotic lesion in anterior RLE that is non bleeding/nontender Results & Data Results & Data Vital Signs (Past 12 Hours) Vital Signs Temp Pulse Pulse Resp BP BP Pulse Ox 12/03/24 00:00 68 20 152/86 H 95 12/02/24 23:00 36.7 C 68 17 150/92 H 95 01/16/25 22:45 68 20 149/87 H 96 12/02/24 21:33 86 L 12/02/24 21:27 76 18 164/93 H 92 12/02/24 20:00 12/02/24 20:00 37.3 C 99 H 18 163/96 H 94 12/02/24 19:56 92 H O2 Del Method O2 Flow Rate 12/03/24 00:00 Nasal Cannula 2 12/02/24 23:00 Nasal Cannula 2 12/02/24 22:45 Nasal Cannula 2 12/02/24 21:33 Nasal Cannula 0 12/02/24 21:27 Nasal Cannula 2 12/02/24 20:00 Room Air 12/02/24 20:00 Room Air 12/02/24 19:56 Supervising Physician Co-Signing Physician Notes Attending addendum: I have physically seen this patient, have supervised the medical residents activities, and agree with the H&P unless as otherwise noted. Assessment and Plan: The patient is a 73-year-old female with a past medical history including COPD, neuroendocrine tumor with metastases to bone, GERD, hypertension, MDD, hyperlipidemia who presents to the emergency department worsening dyspnea on exertion that initially began 1 month ago, but especially worse over the past few days. Noted to also have pelvic pain, pain with bowel movement, bilateral lower extremity tingling and weakness. #Acute respiratory failure with hypoxia/COPD exacerbation- Worsening symptoms over the past month, with intermittently productive cough Methylprednisolone 40 mg IV twice daily DuoNebs every 2 hours as needed Continue routine home inhalers Nasal cannula oxygen, titrate to keep pulse ox 90-92% Bilateral lower extremity swelling and paresthesias began about 2 days ago Known history of bony mets from neuroendocrine tumor Ordering ultrasound to assess for possible DVT Ordered B12 and hemoglobin A1c Consideration for PT/OT Cystitis- Follow urine culture and sensitivity Antibiotics as noted Chronic pain syndrome/cancer pain- Continue duloxetine, gabapentin which can be increased to 600 3 times daily, lamotrigine, methadone. Placed on routine dosing of oxycodone 5 mg every 6 hours instead of as needed dosing as noted RLS-On carbidopa-levodopa Resident Activity Tracking Resident Involvement: Resident Care Provided Care Provided: Adult Hospital Medicine (2) COPD (chronic obstructive pulmonary disease) COPD type: unspecified COPD Qualified Code(s): J44.9 - Chronic obstructive pulmonary disease, unspecified (3) GERD (gastroesophageal reflux disease) Esophagitis presence: esophagitis presence not specified Qualified Code(s): K21.9 - Gastro-esophageal reflux disease without esophagitis (6) Hyperlipidemia Hyperlipidemia type: unspecified Qualified Code(s): E78.5 - Hyperlipidemia, unspecified
[2024-12-03] MEDS ORDERED: ALBUTEROL HFA 8 GM INHALER INH PRN (01:39)
[2024-12-03] MEDS ORDERED: ALBUT/IPRATROP 3MG/0.5MG NEB 3 ML VIAL NEB PRN (01:39)
[2024-12-03] MEDS ORDERED: MELATONIN 3 MG TAB PO PRN (01:39)
[2024-12-03] MEDS ORDERED: ONDANSETRON INJ 2 MG/ML 2 ML VIAL IV PRN (01:39)
[2024-12-03] MEDS ORDERED: oxyCODONE HCL IR 5 MG TAB (IMMEDIATE RELEASE) PO PRN (01:42)
[2024-12-03] MEDS: oxyCODONE HCL IR 5 MG TAB (IMMEDIATE RELEASE) PO PRN (02:28)
[2024-12-03] MEDS: ACETAMINOPHEN 500 MG TAB PO SCH (02:28)
--- NOTE | 2024-12-03 05:26 | Billing Data ---
Date of Service December 03, 2024 Coding Level of Care Code 13887 INT INP/OBS CARE
[2024-12-03 07:07] LABS: Estimated Average Glucose 114 mg/dl; Hemoglobin A1C 5.6 % (4.5-5.6)
--- NOTE | 2024-12-03 08:15 | Ultrasound Report ---
US venous doppler LE BI CLINICAL HISTORY: swelling and paresthesia TECHNIQUE: Bilateral lower extremity real-time compression venous ultrasound with Color Doppler imagi ng. Utilizing real-time ultrasonic imaging multiple real time high-resolution ultrasonic images with compression and noncompression maneuvers of the deep venous system in addition to color doppler imagi ng were performed from the common femoral vein through the proximal calf veins. COMPARISON: Comparison is made to venous ultrasound 09/09/2023 FINDINGS/IMPRESSION: No deep venous thrombus, there is normal compressibility of the deep venous system from the common fe moral vein through the proximal calf veins. A left popliteal cyst is seen. ACT 112: Negative or not required by law. Electronically signed by: Jerry Tolentino M.D. 12/03/2024 8:13 AM
[2024-12-03] MEDS: DULoxetine HCL 30 MG CAP PO SCH (08:31)
[2024-12-03] MEDS: amLODIPine BESYLATE 5 MG TAB PO SCH (08:32)
[2024-12-03] MEDS: ASPIRIN 81 MG ECTAB PO SCH (08:33)
[2024-12-03] MEDS: NITROFURANTOIN MONOHYDRATE 100 MG CAP PO SCH (08:33)
[2024-12-03] MEDS: GABAPENTIN 300 MG CAP PO SCH (08:33)
[2024-12-03] MEDS: CARBIDOPA/LEVODOPA 25-250 1 EA TAB PO SCH (08:33)
[2024-12-03] MEDS: methylPREDNISolone 40 MG in SYRINGE 0 ML IV SCH (08:34)
[2024-12-03] MEDS: PANTOprazole 40 MG TAB PO SCH (08:34)
[2024-12-03] MEDS ORDERED: POLYETHYLENE (MIRALAX) 17 GM PACK PO SCH (09:00)
[2024-12-03] MEDS ORDERED: methylPREDNISolone 125 MG/2 ML VIAL IV SCH (09:00)
--- NOTE | 2024-12-03 09:08 | Hospitalist Progress Note ---
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 #Acute hypoxic respiratory failure | COPD exacerbation Increasing LUZ * Improved today Stable at RA Patient with known COPD (no home oxygen) TTE : EF 60-65% Solumedrol 40 mg BID/ Duoneb prn/ Continue home inhaler #B/l LE swelling and paresthesias Bony mets from known CA vs B12 vs wheelchair use vs limited mobility B12:134 ( Low); Inj B12 STAT today, will send B12 on DC. Monitor B12 in month with PCP. US doppler: DVT ruled out. TTE: EF 60-65% #Constipation Likely secondary to chronic opiate use for cancer-related pain Had BM today after Miralax 34 mg daily, will continue on DC. Electrolytes stable #Cystitis Questionable; Could be radiation cystitis Suprapubic pain with palpation and dysuria since 2 days ago UA: WNL Will continue Macrobid 100 mg PO bid for 5 days started on admission. Urology follow up on outpatient. #Chronic pain | Neuroendocrine tumor with mets Neuroendocrine tumor with multiple mets Uses methadone and oxycodone prn for breakthrough pain Scheduled tylenol; scaled pain control with oxycodone 5 mg for mod pain and 10 mg for severe pain Pain relatively better now. # Lump in right leg Lump for 2 months. nodular growth with irregular surface looks non infective, possible need to Biopsy in outpatient Recs Derm f.u on DC. #Other chronic RLS: Continue Carvidopa/Levodopa GERD: Continue PPI VTE ppx: Lovenox Code Status: FULL DISPO: DC TOMORROW; patient need ride from family, she will be ready tomorrow ~ 9 am. Admission and Anticipated Discharge Date Admission Date: December 03, 2024 Supervising Physician Co-Signing Physician Notes I personally examined the patient and verified all rivera points of history and exam, discussed case, and agree with decision making with Dr Henley patient very pleasant notes that she is hurting all over but notes that she is progressing to end-stage with her cancer. Mostly just wants to go homenotes that she cannot go home until tomorrow but would like to go home early tomorrow. Will have a friend come to get her. We discussed if she would like hospiceshe noted that the rifle case repairer set up home nursing. Will revisit the difference tomorrow to ensure that is what she wants, not formally hospice yet. Did have bowel movement earlier today. Vitals noted, in general she is awake and alert pleasant no distress thin and frail. Breathing unlabored no accessory muscle use good effort. Skin without rashes pallor or icterus. Neuro without focal deficits. Overall declineappears to be due to her metastatic neuroendocrine tumor. She expresses a good understanding of where she is at, consistent with end-of-life type decision making. Currently set up for home nursing, will revisit to ensure she does not want hospice instead. Hypoxiaimproved quite quicklysuspect largely due to baseline illness and baseline variation. ConstipationMiraLAX possible cystitisfinish antibiotics echo with wall motion abnormalitieswill discuss with patient but I doubt she will want anything done, certainly does not appear acute B12 deficiencywith paresthesiasreplace, given that it may help with quality of life. DVT proph - lovenox Subjective This AM Patricia was just transferred from ED to Inpatient bed when I saw her. She explained how her overall condition has been worsening as she is in stage 4 cancer. She feels much weaker than before and mentions " Well everybody has to and its better to know what is the reason for that". She is also bothered as she has not had bowel movement for 3 days now. Mentioned she had ran out of her inhalers for almost 3 weeks now but she is quite sure SOB was similar before that as well. Hence she feels like everything she is experiencing is because of cancer rather than COPD. She lives alone at [place]. Afternoon when I reassessed her she felt much better as she has bowel movement. She feels ready to go home tomorrow, plans to call sister in law for ride. Review of Systems Review of Systems: As per HPI Physical Exam Physical Exam: Constitutional: Well appearing, No acute distress HEENT: Atraumatic, Normocephalic, No conjunctival injection CVS: S1 S2 no murmur, Regular Rhythm Respiratory: BL equal decreased entry. Coarse breath sound BL. No increased work of breathing GI: Soft, Nondistended, Nontender, Normal Bowel sounds + MSK: No gross deformities noted Skin: Warm, Dry, No rashes. 2 cm nodular mass on right lower leg with irregular surface on top. Non tender, firm, no surrounding cellulitis. Neuro: Alert, Oriented to TPP, No Focal deficit Psych: Mood and Affect congruent, Cooperative on exam Results & Data Results & Data Vital Signs (Past 12 Hours) Vital Signs Temp Pulse Pulse Resp BP BP Pulse Ox 12/03/24 08:31 36.9 C 63 16 163/82 H 95 12/03/24 06:09 72 14 143/80 H 92 12/03/24 05:00 69 16 158/91 H 91 12/03/24 03:24 70 12/03/24 03:00 71 16 159/87 H 92 12/03/24 02:05 12/03/24 02:05 67 19 155/97 H 92 12/03/24 02:04 12/03/24 02:00 65 16 155/97 H 90 12/03/24 01:00 86 23 134/60 92 12/03/24 00:00 68 20 152/86 H 95 12/02/24 23:00 36.7 C 68 17 150/92 H 95 12/02/24 22:45 68 20 149/87 H 96 12/02/24 21:33 86 L 12/02/24 21:27 76 18 164/93 H 92 Pulse Ox O2 Del Method O2 Del Method O2 Flow Rate O2 Flow Rate 12/03/24 08:31 Room Air 12/03/24 06:09 Nasal Cannula 2 12/03/24 05:00 Nasal Cannula 2 12/03/24 03:24 12/03/24 03:00 Nasal Cannula 2 12/03/24 02:05 Nasal Cannula 2 12/03/24 02:05 Nasal Cannula 2 12/03/24 02:04 91 Nasal Cannula 2 12/03/24 02:00 Nasal Cannula 2 12/03/24 01:00 Nasal Cannula 2 12/03/24 00:00 Nasal Cannula 2 12/02/24 23:00 Nasal Cannula 2 12/02/24 22:45 Nasal Cannula 2 12/02/24 21:33 Nasal Cannula 0 12/02/24 21:27 Nasal Cannula 2 Resident Activity Tracking Resident Involvement: Resident Care Provided Care Provided: Adult Hospital Medicine (2) COPD (chronic obstructive pulmonary disease) COPD type: unspecified COPD Qualified Code(s): J44.9 - Chronic obstructive p ulmonary disease, unspecified (3) GERD (gastroesophageal reflux disease) Esophagitis presence: esophagitis presence not specified Qualified Code(s): K21.9 - Gastro-esophageal reflux disease without esophagitis (6) Hyperlipidemia Hyperlipidemia type: unspecified Qualified Code(s): E78.5 - Hyperlipidemia, unspecified
[2024-12-03] MEDS: METHADONE HCL 5 MG TAB PO SCH (09:19)
[2024-12-03] MEDS: METHADONE HCL 10 MG TAB PO SCH (09:19)
[2024-12-03] MEDS: CYANOCOBALAMIN 1000 MCG/ML VIAL IM SCH (09:19)
[2024-12-03] MEDS: POLYETHYLENE (MIRALAX) 17 GM PACK PO SCH (09:19)
--- NOTE | 2024-12-03 14:17 | XCELERA ---
[id number]
--- NOTE | 2024-12-03 17:48 | Billing Data ---
Date of Service December 03, 2024 Coding Level of Care Code 30564 SUB INP/OBS CARE MIN
[2024-12-03 23:13] VITALS: RESP 16
[2024-12-04 07:59] VITALS: TEMP 98.2; O2SAT 92
[2024-12-04] MEDS: ENOXAPARIN INJ 40 MG/0.4 ML SYR SQ SCH (08:39)
--- NOTE | 2024-12-04 08:39 | Communication Note ---
Date of Service: December 04, 2024 By CMS guidelines, a determination that the admission or continued stay is not medically necessary has been made by a member of the UR committee and a phy sician for this hospital stay, therefore a Code 44 will be completed and the Inpatient admission will be changed to outpatient.
--- NOTE | 2024-12-04 08:55 | Discharge Summary ---
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 Acute hypoxic respiratory failure | COPD exacerbation Increasing LUZ - Patient with known COPD (no home oxygen) - Hypoxia seems to have occurred but essentially self correctedsuspect it was waxing and waning in the context of her baseline COPD as well as known metastatic deposits in her lungs. - She feels comfortable going home. No needs in this regard B/l LE swelling and paresthesias - no DVT. Replace B12 as it may help with symptoms. Was given IM in the hospitalbut given her overall end-of-life milieu, we will supplement p.o. to make it easier/less uncomfortable for her. Constipation - Pain with bm w/ straining likely 2/2 constipation - Likely secondary to chronic opiate use for cancer-related pain - Bowel movement with MiraLAXrecommended that she continue this after discharge Cystitis - Suprapubic pain with palpation and dysuria now improved - Will manage with Macrobid 100 mg PO bid for 5 days Chronic pain | Neuroendocrine tumor with mets - home on home meds abnormal echocardiogram - we discussed this, and she noted she would not want further workup given her overall end-of-life status RLS - Continue Carvidopa/Levodopa GERD - Continue PPI would very much like to go home. Home nursing was set up. Clarified with patient right now she would prefer home nursing not hospice. Otherwise she largely is focusing on palliative type goals. I certify that this patient is under my care and that I had a face to-face encounter that meets the home health [id number] encounter requirements with this patient. The encounter with the patient was in whole, or in part, for the following medical condition, which is the primary reason for home health care (list medical condition): weakness/decline due to neuroendocrine tumor I certify that, based on my findings, the following services are medically necessary home health services: home nursing My clinical findings support the need for the above services because: need for ongoing assessment, guidance with medications, instruction on when to seek care, possible transition to hospice Further, I certify that my clinical findings support that this patient is homebound (i.e. absences from home require considerable and taxing effort and are for medical reasons or congregational services or infrequently or of short duration when for other reasons) because: Certification for Home Health Services: Based on the above findings, I certify that this patient is confined to the home and needs intermittent assisted care, physical therapy and/or speech therapy or continues to need occupational therapy. The patient is under my care, and I have initiated the establishment of the plan of care. This patient will be followed by a physician who will periodically review the plan of care. Notes For Next Care Provider Medication Changes From Visit see med rec Admission HPI Per Admitting Provider Patient is a 73 y/o F w/ PMHx of COPD (not on home oxygen), neuroendocrine tumor w/ mets to bone, GERD, HTN, MDD, HLD who came to ED due to progressively worsening LUZ that began 1 month ago as well as pelvic pain, pain with bm, and bilateral LE tingling and weakness. Also endorsing a productive cough that began around the same time as LUZ, but is not accompanied by chest pain/pressure, syncope or near syncope, lightheadedness/dizziness, or other sxs. With regards to pelvic pain, describes it as a burning stabbing pain that occurs with urination as well as a more dull ache in suprapubic region; began a few days ago. Denies hematuria, frequency, or urgency. With regards to pain with defecation, patient is on chronic oxycodone and methadone for cancer-related pain, and not taking laxatives as an outpatient. States she needs to strain a lot for her bm to try and go everyday and her stools are hard and small. No hematochezia or melena. With regards to her b/l LE tingling, this began 2 days ago and was accompanied by weakness and imbalance, although after stating this she does endorse persistent imbalance for a few months now. No associated pain or skin changes. no recent trauma to her LE and is starting to use wheelchair more frequently, which has lead to some pain in her right shoulder. No other systemic sxs. ED Course: given 500 mL NSS bolus, given Solumedrol 125 mg IV x1 Labs/Imaging: CBC w/o leukocytosis, hemoglobin 13.5, platelets stable at 220. CMP with mild hypokalemia 3.4, otherwise no significant electrolyte abnormalities, renal markers wnl, bsg of 106. LFT wnl. U/A unremarkable. Respiratory biofire negative. CXR negative and w/o edema or effusions. CTAP w/o evidence of metastatic disease. Chest CTA w/o PE and noting development of left hilar lymphadenopathy with narrowing and opacification of the adjacent left upper lobe bronchi, 8 mm left upper lobe/lingular noncalcified nodule suspicious for metastatic disease. Mild peribronchial thickening suggestive of bronchitis. Head CT unremarkable. Medical History: [Reviewed] Medications: [Reviewed] Surgical History: [Reviewed] Family history: [Reviewed] Allergies: [Reviewed] Social History: [Reviewed] Code Status: FULL Updated Medication List Medication Instructions Recorded Confirmed Type lamotrigine 25 mg tablet 50 mg PO HS 09/20/21 12/03/24 History duloxetine 60 mg capsule,delayed 60 mg PO QAM 04/24/23 12/03/24 History release duloxetine 30 mg capsule,delayed 30 mg PO QPM 09/08/23 12/03/24 History release oxycodone 10 mg tablet 10 mg PO .Q4-6HRS PRN Breakthrough 06/29/24 12/03/24 History Pain sucralfate 1 gram tablet (Carafate) 1 g PO Q6H PRN Dysphagia #120 tabs 07/26/24 12/03/24 Rx albuterol sulfate 90 mcg/actuation 2 puff inhalation Q6H PRN 08/20/24 12/03/24 Rx aerosol inhaler shortness of breath or wheezing #8.5 grams carbidopa 25 mg-levodopa 250 mg 1 tab PO BID 28 days #56 tabs 09/23/24 12/03/24 Rx tablet amlodipine 2.5 mg tablet 2.5 mg PO DAILY #30 tabs 09/28/24 12/03/24 Rx solifenacin 10 mg tablet 10 mg PO DAILY #90 tabs 10/13/24 12/03/24 Rx amlodipine 5 mg tablet 7.5 mg (1.5 x 5 mg) PO DAILY 1 12/03/24 Rx month #45 tabs aspirin 81 mg tablet,delayed 81 mg PO DAILY 12/03/24 12/03/24 History release cyanocobalamin (vitamin B-12) 1,000 mcg PO DAILY #30 caps 12/03/24 Rx 1,000 mcg capsule fluticasone propionate 50 2 spray intranasal DAILY PRN 12/03/24 12/03/24 History mcg/actuation nasal Allergy Symptoms spray,suspension gabapentin 300 mg capsule 300 mg PO TID 12/03/24 12/03/24 History methadone 10 mg tablet 20 mg PO TID 12/03/24 12/03/24 History methadone 5 mg tablet 5 mg PO TID 12/03/24 12/03/24 History nitrofurantoin 100 mg PO BID 3 days #6 caps 12/03/24 Rx monohydrate/macrocrystals 100 mg capsule (Macrobid) omeprazole 20 mg tablet,delayed 20 mg PO QAM 12/03/24 12/03/24 History release perphenazine 8 mg tablet 8 mg PO HS 12/03/24 12/03/24 History polyethylene glycol 3350 17 34 g PO DAILY 4 days #136 grams 12/03/24 Rx gram/dose oral powder (Miralax) Hospital Stay Data Consultations 12/03/24 00:34 ED Decision to Admit Stat Diagnostic Imagining Performed 12/02/24 21:44 CT Abd and Pelvis [CT abd pelvis IV con only] Stat CT angio chest PE protocol Stat CT head/brain wo con Stat 12/03/24 04:46 US venous doppler LE BI Routine Pending Results Patient Have Any Pending Studies at Discharge: No Discharge Instructions Given to Patient (Per Discharging Provider) You were admitted to the hospital for increased shortness of breath. Your blood oxygen was little low when you came in. We gave you some oxygen and you improved well. I don't think its because of acute exacerbation of COPD, see this as overall picture of deconditioning, multiple chronic issues and radiation. You were treated supportively with Oxygen and Some steroids. You were also given antibiotics for presumed cystitis, would recommend you to finish course of 5 days as per prescription. However you urine exam on lab is not particularly significant for urine infection. Again it could be possible effect of radiation therapy and chemo. Make sure to hydrate yourself and regularly follow oncology instruction. A discharge summary will be sent to your primary care physician to ensure continuity of care. Please bring this discharge summary with you to your next office appointment so that your provider can review it at that time. Medications: Your medication list has been reviewed and reconciled upon discharge to ensure accuracy and continuity of care. An updated list of all your medications is included with your hospital discharge paperwork. Please review this list closely and make note of any changes to your medications. 1. Macrobid 100 mg BID has been sent for 3 more days( 6 tabs). Complete total course of 5 days( including 2 day during hospital stay). 2. Blood pressure pill i.e amlodipine has been increased to 7.5 mg once daily from 5 mg once. 3. Recommend you to take B12 tablets for 1 month as per prescription. F/U PCP for repeat Blood test. Follow up appointments: - Make a follow up appointment with your PCP within the next week. It is very important that you follow up with them shortly after discharge from the hospital. - Keep all of your follow up appointments as already scheduled. If you cannot make an appointment, notify your provider. CONTACT YOUR PRIMARY CARE PROVIDER if you experience any of the following: - Difficulty following your treatment plan - Difficulty taking any of your medications CALL 911 OR GO TO THE EMERGENCY DEPARTMENT if you experience any of the following: - Sudden, severe abdominal pain or nausea/vomiting - Severe chest pain or chest pain that radiates to your jaw or arm - Sudden, severe shortness of breath or difficulty breathing Total Time Total Time Spent Total Time Spent (In Minutes): <30"
--- NOTE | 2024-12-04 09:19 | Electrocardiogram Report ---
Test Reason : Blood Pressure : */* mmHG Vent. Rate : 90 BPM Atrial Rate : 90 BPM P-R Int : 152 ms QRS Dur : 86 ms QT Int : 374 ms P-R-T Axes : 62 -3 60 degrees QTcB Int : 457 ms Normal sinus rhythm Possible Left atrial enlargement Abnormal ECG Confirmed by Michael Umanzor ([id number]) on 12/04/2024 9:18:54 AM Referred By: REFERRED SELF Confirmed By: Michael Umanzor
[2024-12-04 09:25] VITALS: BP 152/84; PULSE 76
--- NOTE | 2024-12-04 16:54 | Billing Data ---
Date of Service December 04, 2024 Coding Level of Care Code 13840 IN/OBS DISCH 30 MIN/LESS
== END 2024-12-04 10:18 | disposition home health service (06) | DRG 190 ==
LOC: ED 19:40 → INTOOBSV 12-03 01:12 → SUATTDRO 12-03 01:12 → EDINP 12-03 01:12 → 2W 12-03 08:21

== ENCOUNTER 2025-06-28 15:43 | Inpatient (IN) ==
--- NOTE | 2025-06-28 16:04 | Emergency Department Note ---
Impression & Plan Acute encephalopathy, Respiratory failure with hypoxia and hypercapnia, Acute exacerbation of chronic obstructive pulmonary disease, Non-ST elevation AK (NSTEMI) ED Provider Note NAME: ELIZABETH BAILEY AGE: 74 SEX: F : 1950 ARRIVES VIA: Ambulance INFORMANT: Patient, EMS ED PROVIDER(S): Trey Andrew DO CHIEF COMPLAINT: AMS HPI: This is a 74-year-old female with the PMHx of COPD with chronic hypoxemic respiratory failure on LFNC at baseline, HTN, GERD, and neuroendocrine cancer with matilda metastatic disease, ?brain cancer on active chemotherapy and s/p craniectomy presenting to [facility] for further evaluation of AMS. Patient is accompanied by EMS who provide additional history. The EMS team reported that they were called by police after a welfare check. The patient did not show up to his chemotherapy session today. I was hearing from him. Patient reports that she fell today. She states this was while she was urinating. Patient states she slid off the toilet. Unclear if she hit her head or loss of consciousness. Patient has no complaints today. She reports that myoclonic jerking is chronic. Patient denies any pain. They deny fever or chills. No cough or congestion. Denies chest pain or palpitations. No shortness of breath. They deny abdominal pain, nausea and vomiting. No urinary complaints. No recent changes in bowel movements. Patient denies recent changes in medications or OTC supplements. Patient offers no other complaints, today. ADDITIONAL HISTORY OBTAINED: Per HPI Chronic Medical/Social Conditions Affecting Care: Per HPI PAST MEDICAL HISTORY: See Below PAST SURGICAL HISTORY: See Below FAMILY HISTORY: See Below SOCIAL HISTORY: See Below HOME MEDICATIONS: See Below ALLERGIES: See Below VITALS: See Below PHYSICAL EXAMINATION: GENERAL: Sitting up in bed, alert, well appearing, well nourished, no distress, non-toxic EYE EXAM: normal conjunctiva. PERRL and EOM's grossly intact. OROPHARYNX: no exudate, no erythema, lips, buccal mucosa, and tongue normal and mucous membranes are moist NECK: supple, no nuchal rigidity, no adenopathy, non-tender LUNGS: Coarse BS, slightly diminished on the L. Normal chest wall mechanics HEART: no murmurs, regular rate, regular rhythm ABDOMEN: abdomen soft, non-tender, no masses, no rebound or guarding. BACK: Back is symmetrical on inspection and there is no deformity, no midline tenderness, no CVA tenderness. SKIN: no rashes and no bruising UPPER EXTREMITIES: upper extremities are grossly normal. LOWER EXTREMITIES: 1+ pitting edema in the LEs. NEURO EXAM: Normal sensorium, GCS 15, normal speech, no gross weakness of arms, no gross weakness of legs. Myoclonic jerking of the extremities present. She is mildly confused. Severely inattentive. MEDICAL DECISION MAKING: Differential diagnoses includes but not limited to hypoglycemia, electrolyte derangements, dehydration, shock, CVA, ICH, hydrocephalus, NPH, UTI, pneumonia, viral URI, postictal period, ACS, dysrhythmia, metabolic encephalopathy, multifactorial encephalopathy, hypercapnia, hypoxia, polypharmacy, substance use In summary, this is a 74 year old female who presented with AMS. Differential as above. Nursing notes and pertinent past medical records reviewed. Vital signs reviewed and the patient is hypoxic but otherwise afebrile and HDS. Her hypoxia was improved by increasing her baseline LFNC. She does not appear to be in respiratory distress. History and presentation revealed extensive medication list and active chemotherapy for metastatic cancer. I reviewed neurosurgery report from prior. Appears that her right occipital approach craniectomy was over 5 years ago. 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 Patient states that she was recently admitted to the hospital. I find no documentation besides an emergency department visit recently. It appears she was discharged. Patient was admitted back in November. Reviewed H&P from admission. She has significant comorbidities including brain cancer. Patient lives alone. Nursing staff and EMS staff reported that she has noticed all of her medications scattered throughout her person. Medications include pain control medications. Suspect that some of this could be related to polypharmacy. She does have myoclonic jerking on exam. There is no evidence of trauma. The patient is severely confused and inattentive. Suspect likely multifactorial encephalopathy. Given the patient's reported fall, we will obtain CT head and C-spine. Plan for chest x-ray as well as basic lab work. Her hemodynamics are stable at this visit. Diagnostics interpreted by me include EKG and cardiac monitoring as listed below: -Cardiac Monitoring: An order was placed for continuous cardiac monitoring. The monitor shows a rate of 80-90s with regular rhythm. -ECG: EKG independently inter by me reveals sinus rhythm at 92 bpm. There is slight irregularity. Likely related to premature ventricular contractions. No significant ST segment changes to suggest STEMI. Intervals are within normal limits. Patient completed laboratory studies and imaging. Results independently interpreted by me are 2g hemoglobin in the past two weeks. No leukocytosis. VBG shows acute respiratory acidosis secondary to CO2 retention. Patient did not have significant wheezing on physical examination. But this could explain some of her encephalopathy. Plan for chest x-ray to ensure that she does not have a significant pneumonia prior to starting BPAP. Will provide a DuoNeb as well as steroids for possible COPD exacerbation. UA shows no UTI. Insert chest x-ray discussed with mental health beach attendant at the bedside. She has been more confused of late. She does not have family members. She lives by herself. Patient's power of pattern developer is an ex [id number] that lives approximately 1 hour away. Discussed with patient that she has an acute respiratory acidosis. Discussed my plans for utilization of BiPAP. Patient is agreeable. Patient is agreeable to stay in the hospital. I had an extensive discussion with the patient as well as his her beach attendant at the bedside. Ava and Yakelin were both in agreement with decisions made. We discussed CODE STATUS as well as wishes. Patient is to remain a full code. Patient would be interested in intubation and CPR as well as electricity if her condition were to worsen or she suffered respiratory or cardiac arrest. Patient is agreeable to invasive procedures. Patient is interested in rehabilitation services or a long term for short period of time. Patient would like me to update her POA by telephone. I spoke to Elpidio by telephone at 1805. All questions and concerns answered. The patient was managed with IVFR. BPAP was initiated for acute respiratory acidosis with hypercapnia and hypoxia. Patient has been resting comfortably on BPAP. Current settings 12/6 at 40% of FiO2. VTs are somewhere in range of 300- 500. She states that it is not bothering her. Troponin returned elevated. Patient has had elevated troponin levels in the past. Likely an NSTEMI. Likely type II demand ischemia in the setting of her encephalopathy and acute respiratory failure there are no EKG findings to suggest ACS. Patient is not have symptoms of angina. Do not feel the patient needs heparin infusion at this time. The patient is also on numerous medications and I do fear that some of this could be related to polypharmacy. I worry that the patient was not able to function on her own. She may need further discussions regarding rehab or long term stay. Ultimately, the decision was made to admit the patient for inpatient. It was recommended to admit this patient at 1744. I discussed the case with the hospitalist service via telephone/Tiger[employer] and they are agreeable to admit the patient to their services by Dr. Ruiz at 1801. Based on the above, including the patient's age, coexisting illnesses, labs, imaging, and exam findings the decision to treat as an inpatient. I discussed the patient with the hospitalist team who recommended admission to their services. They received the medications, treatments, interventions indicated above and their condition remained guarded. I discussed my findings with the patient and their family and they understand and agree with the treatment plan. All patient / family questions were answered to their satisfaction. Consults/Care Managements Discussions: Per [facility] ER treatment provided: See above Procedures: None Critical Care: I have personally spent 36 minutes of critical care time in direct management of this patient. This includes bedside care, interpretation of diagnostic studies, and testing, discussion with consultants, patient, and family members, and other require inpatient management activities. This 36 minutes is in excess of all separately billable procedures. The chart was completed utilizing [employer] Speech voice recognition software. Grammatical errors, random word insertions, pronoun errors, and incomplete sentences are an occasional consequence of this system due to software limitations, ambient noise, and hardware issues. Any formal questions or concerns about the content, text, or information contained within the body of this dictation should be directly addressed to the physician for clarification. 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 Skin lesion of right lower extremity Constipation Acute hypoxic respiratory failure admitted [facility] 12/02-12/04/24; dx acute hypoxemic resp failure/COPD exacerbation Overactive bladder (Chronic) 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) Chronic headache (Acute) Neuroendocrine tumor (Chronic) Restless leg syndrome Status post craniectomy Hyperlipidemia (Acute) 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 Per records- CTA of head in Jul 2018 show no aneurysms - including basilar artery Allergic rhinitis (Acute) Generalized muscle weakness (Acute) Cervical spondylosis (Acute) Emphysema lung (Chronic) Mixed anxiety and depressive disorder (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) HTN (hypertension) (Chronic 01/06/15) GERD (gastroesophageal reflux disease) (Chronic) Spinal stenosis (Chronic) COPD (chronic obstructive pulmonary disease) (Chronic) Medical History Muscle weakness 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 pylori infection Stomach ulcer Surgical History History of surgery (02/15/25) History of open reduction and internal fixation (ORIF) procedure Hx of colonoscopy (2019) Status post right knee replacement S/P excision of lipoma History of spinal surgery H/O brain surgery H/O exploratory laparotomy (2019) History of anesthesia reaction History of surgery Family History Mother Depression Hypertension Anxiety Stroke Sister Depression Hypertension Cerebral aneurysm Anxiety Father Hypertension Myocardial infarction Cardiac disorder Anxiety Lymphoma Cancer Other Family history non-contributory Has no children Denies family history of Ovarian cancer Prostate cancer Breast cancer Colorectal cancer Social History (Updated 06/22/25 @ 07:40 by IMANI Hicks) Smoking Status: Former smoker Tobacco Type: Cigarettes Age Started Using Tobacco: 20; Age Quit Using Tobacco: 20; packs per day: 0.25; Second Hand Exposure: Yes (hx growing up); Do You Dip or Chew Tobacco: No; Hx Alcohol Use: No (no longer drinks) Hx Substance Use: No Preferred Language: Rwandan Communication Ability: Effective Visual Impairment: No Limitations Hearing Ability: Hard of Hearing Dining Chair Seat Cushion Trimmer Required: No Beliefs That Will Affect Care: None marital status: / Current Living Situation: Alone Current Living Situation Comment: Home with caregivers per patient current occupational status: disabled 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 [employer] How many Children do You have: 0 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) Feels Safe at Home: Yes Childhood Exposure to Second-Hand Smoke: Yes Diet: regular caffeine: Yes (half a cup of coffee daily) during the past year weight has: decreased > 10 lbs Dental Care, Regularly: Yes Physical Activity Frequency: Does not Exercise Seatbelt Use: always Sunscreen Use: No Assistive Devices: Denture - Upper, Denture - Lower and Glasses Allergies Allergies Allergy/AdvReac Type Severity Reaction Status Date / Time codeine Allergy Unknown itching Verified 06/22/25 07:34 Home Meds Home Medications Medication Instructions Recorded Confirmed lamotrigine 25 mg tablet 50 mg PO HS 09/20/21 06/22/25 duloxetine 60 mg capsule,delayed 60 mg PO QAM 04/24/23 06/22/25 release duloxetine 30 mg capsule,delayed 30 mg PO QPM 09/08/23 06/22/25 release fluticasone propionate 50 2 spray intranasal DAILY PRN 12/03/24 06/22/25 mcg/actuation nasal Allergy Symptoms spray,suspension gabapentin 300 mg capsule 300 mg PO TID 12/03/24 06/28/25 methadone 10 mg tablet 20 mg PO TID 12/03/24 06/28/25 methadone 5 mg tablet 5 mg PO TID 12/03/24 06/28/25 omeprazole 20 mg tablet,delayed 20 mg PO QAM 12/03/24 06/22/25 release perphenazine 8 mg tablet 8 mg PO QAM 12/03/24 06/22/25 cyanocobalamin (vitamin B-12) 1,000 mcg PO QAM 01/17/25 06/28/25 1,000 mcg capsule solifenacin 10 mg tablet 10 mg PO QAM 01/17/25 06/22/25 carbidopa 25 mg-levodopa 250 mg 1 tab PO BID 06/28/25 06/28/25 tablet oxycodone 10 mg tablet 10 mg PO .EVERY 4-6 HOURS PRN 06/28/25 06/28/25 Breakthrough Pain Previous Rx's Medication Instructions Recorded albuterol sulfate 90 mcg/actuation 2 puff inhalation Q6H PRN 03/15/25 aerosol inhaler shortness of breath or wheezing #8.5 grams mirabegron 25 mg tablet,extended 25 mg PO DAILY #30 tabs 03/15/25 release 24 hr (Myrbetriq) amlodipine 2.5 mg tablet 2.5 mg PO QAM #30 tabs 03/28/25 amlodipine 5 mg tablet 5 mg PO DAILY #28 tabs 03/28/25 aspirin 81 mg tablet,delayed 81 mg PO DAILY #90 tabs 04/27/25 release hydrochlorothiazide 12.5 mg capsule 12.5 mg PO DAILY #90 caps 06/22/25 sucralfate 1 gram tablet (Carafate) 1 g PO Q6H PRN Dysphagia #120 tabs 06/22/25 Results & Data (ED) Vital Signs Vital Signs - 24 hr 06/28/25 15:51 06/28/25 15:51 06/28/25 16:11 Temperature 36.9 C Temperature Source Oral Pulse Rate 93 H 90 Respiratory Rate 16 Respiratory Effort / Characteristics Non-Labored Spontaneous Respiratory Depth Normal Respiratory Pattern Blood Pressure 108/64 Blood Pressure Mean 78 Blood Pressure Position Semi-fowlers Pulse Oximetry 95 87 L Oxygen Delivery Method Room Air Nasal Cannula Oxygen Flow Rate Fraction of Inspired Oxygen Sepsis Recent Fever Within 48 Hours No Sepsis New/Unexplained Change in Mental Status N/A Sepsis Action Taken by Nursing No Action Required Oxygen Flow Rate - Titration 2 Fraction of Inspired Oxygen - Titration 4 Pulse Oximetry Post Tiitration 96 06/28/25 16:14 06/28/25 17:33 Temperature Temperature Source Pulse Rate 89 Respiratory Rate 16 Respiratory Effort / Characteristics Spontaneous Respiratory Depth Normal Respiratory Pattern Regular Blood Pressure Blood Pressure Mean Blood Pressure Position Pulse Oximetry 95 99 Oxygen Delivery Method Nasal Cannula Oxygen Flow Rate 4 Fraction of Inspired Oxygen 40 Sepsis Recent Fever Within 48 Hours Sepsis New/Unexplained Change in Mental Status Sepsis Action Taken by Nursing Oxygen Flow Rate - Titration Fraction of Inspired Oxygen - Titration Pulse Oximetry Post Tiitration Laboratory Data 06/28/25 16:00 06/28/25 16:00 Lab Results 06/28/25 06/28/25 06/28/25 Range/Units 16:00 16:35 16:40 WBC 5.46 (4.8-10.8) K/ul RBC 3.36 L (4.20-5.40) M/uL Hgb 9.9 L (12.0-16.0) g/dl Hct 33.1 L (37.0-47.0) % MCV 98.5 (80.0-100.0) fL MCH 29.5 (25.0-34.0) pg MCHC 29.9 L (32.0-36.0) g/dL RDW Std Deviation 53.6 H (36.4-46.3) fL RDW Coeff of Ginger 15.1 H (11.5-14.5) % Plt Count 189 (130-400) K/uL MPV 9.7 (9.4-12.4) fL Immature Gran % (Auto) 0.5 % Neut % (Auto) 86.7 % Lymph % (Auto) 5.1 % [place] % (Auto) 7.3 % Eos % (Auto) 0.2 % Baso % (Auto) 0.2 % Neut # (Auto) 4.73 (1.40-6.50) K/uL Lymph # (Auto) 0.28 L (1.20-3.40) K/uL [place] # (Auto) 0.40 (0.11-0.59) K/uL Eos # (Auto) 0.01 (0.00-0.50) K/uL Baso # (Auto) 0.01 (0.00-0.20) K/uL Immature Gran # (Auto) 0.03 (0.01-0.20) K/uL VBG pH 7.26 L (7.36-7.41) VBG pCO2 69 H (38-50) mmHg VBG pO2 24 mmHg VBG HCO3 31 mmol/L VBG O2 Saturation < 60.0 % VBG Base Excess 1.9 mEq/L Sodium 137 (136-145) mmol/L Potassium 4.7 (3.5-5.1) mmol/L Chloride 100 (98-107) mmol/L Carbon Dioxide 30 (21-32) mmol/L Anion Gap 7 (3-11) BUN 17 (6-23) mg/dl Creatinine 0.59 L (0.6-1.2) mg/dl Est Cr Clr Drug Dosing 92.7 ml/min eGFR 95.70 BUN/Creatinine Ratio 28.8 H (10-20) Glucose 105 H (70-99(Fasting)) mg/dl Lactate 1.1 (0.4-2.0) mmol/L Calcium 8.8 (8.6-10.3) mg/dl Total Bilirubin 0.4 (0.2-1.0) mg/dl AST 13 (13-39) U/L ALT 3 L (7-52) U/L Alkaline Phosphatase 86 (34-104) U/L Troponin I High Sens 62.6 H* (0-14) pg/ml Total Protein 6.7 (6.0-8.3) gm/dl Albumin 3.7 (3.4-5.0) gm/dl Globulin 3.0 (2.5-4.0) gm/dl Albumin/Globulin Ratio 1.2 (0.9-2) Procalcitonin 0.10 (0-0.5) ng/ml Urine Color Yellow Urine Appearance Clear (Clear) Urine pH 5.5 (4.5-7.5) Ur Specific [place] 1.014 (1.000-1.030) Urine Protein Negative (Negative) Urine Glucose (UA) Negative (Negative) Urine Ketones Trace H (Negative) Urine Blood Negative (Negative) Urine Nitrite Negative (Negative) Urine Bilirubin Negative (Negative) Urine Urobilinogen Negative (Negative) Ur Leukocyte Esterase Negative (Negative) Urine Comment Administered Medications Discontinued Medications Albuterol (Albut/Ipratrop 3mg/0.5mg Neb 3 Ml Vial) 3 ml NEB NOW STA; Protocol Stop: 06/28/25 17:02 Last Admin: 06/28/25 17:07 Dose: 3 ml Documented By: MMF Sodium Chloride (Nss) 500 mls @ 999 mls/hr IV .Q31M DENISA Stop: 06/28/25 16:45 Last Infusion: 06/28/25 16:55 Dose: Infused Documented By: Admin: 06/28/25 16:21 Dose: 999 mls/hr Documented By: MMF Methylprednisolone (Methylprednisolone 125 Mg/2 Ml Vial) 40 mg IV NOW STA Stop: 06/28/25 17:02 Last Admin: 06/28/25 17:08 Dose: 40 mg Documented By: MMF Imaging Data Radiologist's Impression: Chest X-Ray 06/28/25 16:04 Chest radiograph, one view History: Hypoxia Comparison: None Findings: Single AP view of the chest performed. No focal consolidation or pleural effusion. No pneumothorax. The cardiomediastinal silhouette is within normal limits. Prominent pulmonary vascularity. No evidence for lymphadenopathy. No visualized bony or soft tissue abnormality. Impression: No acute process. Prominent pulmonary vasculature at the hilum, which may be seen with pulmonary venous hypertension. Electronically signed by Michael Morris 06-28-2025 5:[address] 06/28/25 16:04 Technique: Axial computed tomography images were obtained of the brain without intravenous contrast. Findings: There is diffuse cerebral atrophy, within expected limits for the patient's age. Areas of decreased attenuation are seen within the periventricular white matter, likely representing chronic small vessel ischemic disease. There is no definite sign of acute or old infarction. No intracranial hemorrhage is evident. No definite mass lesion is seen on this noncontrast examination. There is no midline shift or other form of herniation. No hydrocephalus is seen. No fracture is identified. The orbits and the visualized paranasal sinuses appear unremarkable. The mastoid air cells appear clear. Impression: 1. Cerebral atrophy and chronic small vessel ischemic disease 2. Otherwise unremarkable noncontrast CT of the brain Electronically signed by Edy Ricks 06-28-2025 5:06 PM Discharge Plan Visit Data Chief Complaint: Weakness Stated Complaint: weakness ED Provider: Trey Andrew Discharge Problem: Acute encephalopathy, Respiratory failure with hypoxia and hypercapnia, Acute exacerbation of chronic obstructive pulmonary disease, Non-ST elevation AK (NSTEMI) Patient Disposition: Admitted As Inpatient Condition: Serious Forms Stand Alone Forms: [facility] Prescriptions Prescriptions: No Action albuterol sulfate 90 mcg/actuation HFA aerosol inhaler 2 puff inhalation Q6H PRN (Reason: shortness of breath or wheezing) Qty: 8.5 5RF mirabegron [Myrbetriq] 25 mg tablet extended release 24 hr 25 mg PO DAILY Qty: 30 5RF amlodipine 2.5 mg tablet 2.5 mg PO QAM Qty: 30 5RF Rx Instructions: Take together with 5 mg tab for TDD 7.5 mg aspirin 81 mg tablet,delayed release (DR/EC) 81 mg PO DAILY Qty: 90 3RF lamotrigine 25 mg tablet 50 mg PO HS sucralfate [Carafate] 1 gram tablet 1 g PO Q6H PRN (Reason: Dysphagia) Qty: 120 4RF Rx Instructions: dissolve in one teaspoon or water. Swallow before meals and at bed time. hydrochlorothiazide 12.5 mg capsule 12.5 mg PO DAILY Qty: 90 3RF duloxetine 30 mg capsule,delayed release(DR/EC) 30 mg PO QPM duloxetine 60 mg capsule,delayed release(DR/EC) 60 mg PO QAM gabapentin 300 mg capsule 300 mg PO TID perphenazine 8 mg tablet 8 mg PO QAM methadone 10 mg tablet 20 mg PO TID Rx Instructions: TAKE WITH 5 MG = 25 MG TOTAL 3 times a day methadone 5 mg tablet 5 mg PO TID fluticasone propionate 50 mcg/actuation spray,suspension 2 spray intranasal DAILY PRN (Reason: Allergy Symptoms) Rx Instructions: USE 2 SPRAYS INTO EACH NOSTRIL DAILY NEEDED FOR ALLERGY SYMPTOMS. omeprazole 20 mg tablet,delayed release (DR/EC) 20 mg PO QAM solifenacin 10 mg tablet 10 mg PO QAM cyanocobalamin (vitamin B-12) 1,000 mcg capsule 1,000 mcg PO QAM oxycodone 10 mg tablet 10 mg PO .EVERY 4-6 HOURS PRN (Reason: Breakthrough Pain) carbidopa-levodopa 25-250 mg tablet 1 tab PO BID amlodipine 5 mg tablet 5 mg PO QAM Rx Instructions: take with the Amlodipine 2.5 mg to make daily dose of 7.5 mg. quetiapine 300 mg tablet 300 mg PO UD Referrals Referrals: Yelena Keita MD [Primary Care Provider] -
[2025-06-28] MEDS: SODIUM CHLORIDE 0.9% 500 ML IV SCH (16:21)
[2025-06-28 16:39] LABS: Hematocrit (blood only) 33.1 % (37.0-47.0); Hemoglobin 9.9 g/dl (12.0-16.0); Immature Granulocytes # (auto) 0.03 K/uL (0.01-0.20); Immature Granulocytes % (auto) 0.5 %; Mean Corpuscular Hemoglobin 29.5 pg (25.0-34.0); Mean Corpuscular Volume 98.5 fL (80.0-100.0); Platelet Count 189 K/uL (130-400); RDW Standard Deviation 53.6 fL (36.4-46.3); Red Blood Count 3.36 M/uL (4.20-5.40); White Blood Count 5.46 K/ul (4.8-10.8)
[2025-06-28 16:56] LABS: Appearance Urine Clear (Clear); Glucose Urine UA Negative (Negative)
[2025-06-28 16:56] LABS: Base Excess VBG 1.9 mEq/L; HCO3 VBG 31 mmol/L; Oxygen Saturation VBG < 60.0 %; PCO2 VBG 69 mmHg (38-50); PO2 VBG 24 mmHg; pH VBG 7.26 (7.36-7.41)
--- NOTE | 2025-06-28 17:06 | CT Scan Report ---
Technique: Axial computed tomography images were obtained of the brain without intravenous contrast. Findings: There is diffuse cerebral atrophy, within expected limits for the patient's age. Areas of decreased attenuation are seen within the periventricular white matter, likely representing chronic small vessel ischemic disease. There is no definite sign of acute or old infarction. No intracranial hemorrhage is evident. No definite mass lesion is seen on this noncontrast examination. There is no midline shift or other form of herniation. No hydrocephalus is seen. No fracture is identified. The orbits and the visualized paranasal sinuses appear unremarkable. The mastoid air cells appear clear. Impression: 1. Cerebral atrophy and chronic small vessel ischemic disease 2. Otherwise unremarkable noncontrast CT of the brain Electronically signed by Edy Ricks 06-28-2025 5:06 PM
[2025-06-28] MEDS: ALBUT/IPRATROP 3MG/0.5MG NEB 3 ML VIAL NEB STA (17:07)
[2025-06-28 17:09] LABS: Alanine Aminotransferase 3.0 U/L (7-52); Albumin Globulin Ratio 1.2 (0.9-2); Alkaline Phosphatase 86.0 U/L (34-104); Anion Gap 7.0 (3-11); Bilirubin,Total 0.4 mg/dl (0.2-1.0); Blood Urea Nitrogen 17.0 mg/dl (6-23); Calcium 8.8 mg/dl (8.6-10.3); Carbon Dioxide 30.0 mmol/L (21-32); Chloride 100.0 mmol/L (98-107); Creatinine Clr Calc Pharmacy 92.7 ml/min; Globulin 3.0 gm/dl (2.5-4.0); Glucose 105.0 mg/dl (70-99(Fasting)); Potassium 4.7 mmol/L (3.5-5.1); Sodium 137.0 mmol/L (136-145); Total Protein 6.7 gm/dl (6.0-8.3)
--- NOTE | 2025-06-28 17:42 | XRay Report ---
Chest radiograph, one view History: Hypoxia Comparison: None Findings: Single AP view of the chest performed. No focal consolidation or pleural effusion. No pneumothorax. The cardiomediastinal silhouette is within normal limits. Prominent pulmonary vascularity. No evidence for lymphadenopathy. No visualized bony or soft tissue abnormality. Impression: No acute process. Prominent pulmonary vasculature at the hilum, which may be seen with pulmonary venous hypertension. Electronically signed by Michael Morris 06-28-2025 5:42 PM
--- NOTE | 2025-06-28 18:15 | CT Scan Report ---
EXAM: CT cervical spine CLINICAL HISTORY: Brought in via EMS, missed chemo treatment today, mental health outreach and education social worker found patient in bed, patient's legs gave out and patient fell. TECHNIQUE: Contiguous axial images were obtained through the cervical spine without the use of intravenous contrast. Sagittal and coronal reformations are supplied. PRIORS: None FINDINGS: Motion artifact greatly degrades image quality. Moderate osseous demineralization is noted. Lordotic straightening is noted. No acute cervical spine fracture or facet dislocation. Heterogeneous sclerotic and lucent appearance of the C4 vertebral body, image 36, series 901 with expansile lucent lesion noted, image 36, series 8, and possible mild vertebral height loss, age-indeterminate. Moderate degenerative change throughout the cervical spine Mild osteophytic neuroforaminal stenosis of the lower cervical spine is noted. No prevertebral soft tissue swelling. Visualized trachea is patent. No pneumothorax or acute abnormality in the lung apices. IMPRESSION: 1. No CT evidence of an acute osseous abnormality. 2. Heterogeneous sclerotic and lucent appearance of the C4 vertebral body, possibly degenerative and secondary to osseous demineralization. However, in the setting of known malignancy, metastatic disease could have this appearance. Please correlate with prior imaging of the cervical spine to demonstrate stability. Alternatively, MRI could be considered if patient is able to tolerate the examination. ACT 112: Positive. There are findings on this examination that require communication between the performing entity and the patient following Patient Test Result Information Act ([place] ACT 112) guidelines. Electronically signed by Maria Elena Erickson 06-28-2025 6:14 PM
--- NOTE | 2025-06-28 18:33 | History & Physical Report ---
Date of Service June 28, 2025 Assessment & Plan (1) Respiratory failure with hypoxia and hypercapnia: (2) Acute exacerbation of chronic obstructive pulmonary disease: (3) Acute encephalopathy: (4) Elevated troponin: Plan #metabolic encephalopathy -most likely hypercapnea +/- hypoxia mediated, can't r/o contributions from polypharmacy - but seems to be waking up with bipap #combined respiratory failure w hypoxia and hypercapnea -given cough and apparent not feeling well for a few days leading up to admission (will need to verify once pt able to communicate better) biggest suspicion is COPD exacerbation / viral bronchitis mechanism -bipap for hypercapnea until no longer needed -steroids/azithromycin -inhalers once able #elevated troponin -mild demand myocardial ischemia most likely from hypoxia from above -trend to peak #concern for polypharmacy -could easily be a contributer to #1,2 above. once doing better, with dispo planning will need to try to build a safer system for her with meds #metastatic neuroendocrine tumor #DVT proph -lovenox History of Present Illness Chief Complaint: confusiona nd respiratory distress Primary Care Provider: Yelena Keita MD limited HPI due to bipap and probable confusion - rda froilan at bedside and assists greatly w HPI pt was not seen when expected so case workers called well check - pt found to be confused, labored breathing, deep rhonchorous cough. acting not at all herself - less responsive (they note she's normally a deep sleeper but wasn't easily arousable at all). also noted the last few days she was noticing worsening b/l LE edema. very hard to tell from pt currently - but seems to endorse feeling more SOB last few days as well. hard to glean other sx. was brought to ER found to be in respiratory distress/hypercapnea and started on bipap - now waking up and more responsive. rda also notes concern about pt taking meds as Rxd currently getting chemo for neuroendocrine tumor w mets - was to have chemo today but was here instead. Allergies Allergy/AdvReac Type Severity Reaction Status Date / Time codeine Allergy Unknown itching Verified 06/22/25 07:34 Home Medications Medication Instructions Recorded Confirmed Type lamotrigine 25 mg tablet 50 mg PO HS 09/20/21 06/28/25 History duloxetine 60 mg capsule,delayed 60 mg PO QAM 04/24/23 06/28/25 History release duloxetine 30 mg capsule,delayed 30 mg PO QPM 09/08/23 06/28/25 History release fluticasone propionate 50 2 spray intranasal DAILY PRN 12/03/24 06/28/25 History mcg/actuation nasal Allergy Symptoms spray,suspension gabapentin 300 mg capsule 300 mg PO TID 12/03/24 06/28/25 History methadone 10 mg tablet 20 mg PO TID 12/03/24 06/28/25 History methadone 5 mg tablet 5 mg PO TID 12/03/24 06/28/25 History omeprazole 20 mg tablet,delayed 20 mg PO QAM 12/03/24 06/28/25 History release perphenazine 8 mg tablet 8 mg PO QAM 12/03/24 06/28/25 History cyanocobalamin (vitamin B-12) 1,000 mcg PO QAM 01/17/25 06/28/25 History 1,000 mcg capsule solifenacin 10 mg tablet 10 mg PO QAM 01/17/25 06/28/25 History albuterol sulfate 90 mcg/actuation 2 puff inhalation Q6H PRN 03/15/25 06/28/25 R x aerosol inhaler shortness of breath or wheezing #8.5 grams amlodipine 2.5 mg tablet 2.5 mg PO QAM #30 tabs 03/28/25 06/28/25 Rx sucralfate 1 gram tablet (Carafate) 1 g PO Q6H PRN Dysphagia #120 tabs 06/22/25 06/28/25 Rx amlodipine 5 mg tablet 5 mg PO QAM 06/28/25 06/28/25 History aspirin 81 mg tablet,delayed 81 mg PO QAM 06/28/25 06/28/25 History release carbidopa 25 mg-levodopa 250 mg 1 tab PO BID 06/28/25 06/28/25 History tablet hydrochlorothiazide 12.5 mg capsule 12.5 mg PO QAM 06/28/25 06/28/25 History mirabegron 25 mg tablet,extended 25 mg PO QAM 06/28/25 06/28/25 History release 24 hr (Myrbetriq) oxycodone 10 mg tablet 10 mg PO .EVERY 4-6 HOURS PRN 06/28/25 06/28/25 History Breakthrough Pain quetiapine 300 mg tablet 300 mg PO HS 06/28/25 06/28/25 History Past Med/Surg History Problem List Non-ST elevation [place] (NSTEMI) (Acute) Acute exacerbation of chronic obstructive pulmonary disease (Acute) Respiratory failure with hypoxia and hypercapnia (Acute) Acute encephalopathy (Acute) Closed head injury (Acute) Acute shoulder pain (Acute) Fall (Acute) Trauma (Acute) 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 Skin lesion of right lower extremity Constipation Acute hypoxic respiratory failure admitted [facility] 12/02-12/04/24; dx acute hypoxemic resp failure/COPD exacerbation Overactive bladder (Chronic) 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) Chronic headache (Acute) Neuroendocrine tumor (Chronic) Restless leg syndrome Status post craniectomy Hyperlipidemia (Acute) 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 Per records- CTA of head in Jul 2018 show no aneurysms - including basilar artery Allergic rhinitis (Acute) Generalized muscle weakness (Acute) Cervical spondylosis (Acute) Emphysema lung (Chronic) Mixed anxiety and depressive disorder (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) HTN (hypertension) (Chronic 01/06/15) GERD (gastroesophageal reflux disease) (Chronic) Spinal stenosis (Chronic) COPD (chronic obstructive pulmonary disease) (Chronic) Medical History Muscle weakness able to ambulate independently; when feeling weak uses motorized WC 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 bx 01/06/25; pathology nondiagnostic; per general surgery note 'likely SCC' Neuroendocrine tumor small cell neuroendocrine tumor; per heme/onc note 12/17/24, primarily located at posterior skull; s/p resection of lesions 2018 and 2020; also s/p chemo; developed spinal lesions and skeletal lesions which were tx with XRT; on palliative care currently Spinal stenosis RLS (restless legs syndrome) taking carbidopa/levodopa OAB (overactive bladder) Mixed anxiety and depressive disorder Hx of hyperlipidemia History of hypertension Hx of gastroesophageal reflux (GERD) no recent issues Emphysema lung COPD (chronic obstructive pulmonary disease) admitted [facility] 12/02-12/04/24; dx acute hypoxemic resp failure/COPD exacerbation Chronic headache hx, only prior to brain surgery, no recent issues Cervical spondylosis no limits w/ ROM 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 pylori infection hx Stomach ulcer hx, no recent issues Surgical History History of surgery (02/15/25) Right Lower Extremity Wide Local Excision of Squamous Cell Carcinoma, intermediate layered closure (Right) - Chi Mathew DO History of open reduction and internal fixation (ORIF) procedure right foot > hardware intact Hx of colonoscopy (2018) Status post right knee replacement S/P excision of lipoma History of spinal surgery LUMBAR FUSION H/O brain surgery 2 tumor removals: 2018 and 03/29/21: Resection of Occipital Subgaleal Lesion Dr. Curt Wen at [facility] H/O exploratory laparotomy (2018) History of anesthesia reaction PT STATES THAT SHE WOKE UP TWICE DURING PREVIOUS COLONOSCOPY AND WAS ADVISED TO ALERT STAFF OF THIS FOR FUTURE PROCEDURES. History of surgery REMOVAL OF RIGHT LABIA FOLLOWING DX OF VULVA CANCER Family History Mother , Passed Age 90's due to stroke Depression Hypertension Anxiety Stroke Sister Depression Hypertension Cerebral aneurysm Anxiety Father , in his mid to later 40s of an [place] Hypertension Myocardial infarction Cardiac disorder Anxiety Lymphoma Cancer Other Family history non-contributory Has no children Denies family history of Ovarian cancer Prostate cancer Breast cancer Colorectal cancer Social History Smoking Status: Former smoker Tobacco Type: Cigarettes Age Started Using Tobacco: 20; Age Quit Using Tobacco: 20; packs per day: 0.25; Second Hand Exposure: Yes (hx growing up); Do You Dip or Chew Tobacco: No; Hx Alcohol Use: No (no longer drinks) Hx Substance Use: No Preferred Language: Citizen Of [place] Communication Ability: Effective Visual Impairment: No Limitations Hearing Ability: Hard of Hearing Glass Cutter Hand Required: No Beliefs That Will Affect Care: None marital status: / Current Living Situation: Alone Current Living Situation Comment: Home with caregivers per patient current occupational status: disabled 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 [employer] How many Children do You have: 0 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) Feels Safe at Home: Yes Childhood Exposure to Second-Hand Smoke: Yes Diet: regular caffeine: Yes (half a cup of coffee daily) during the past year weight has: decreased > 10 lbs Dental Care, Regularly: Yes Physical Activity Frequency: Does not Exercise Seatbelt Use: always Sunscreen Use: No Assistive Devices: Denture - Upper, Denture - Lower and Glasses Review of Systems Review of Systems: All systems reviewed & are unremarkable except as noted in HPI & below, Unobtainable due to cognitive status and Other ROS negative as best can be ascertained but quite limited due to probable ongoing AMS, as well as difficulty communicating w bipap Physical Exam Physical Exam: awake, tries to talk - bipap making it quite difficult to gauge orientation but she does make good eye contact and tries to carry on conversations. heent nc at mmm. cardio distant no r/m/g. lungs markedly diminished throughout no r/r/w good effort no accessory muscles but again very quiet and on bipap. abd soft nd nt no masses ext b/l ~1-2+ LE edema no asymmetry. neuro shows no lateralizing signs cn 2-12 grossly intact gross motor and sensory appear intact. mental status hard to assess. Results & Data Results & Data Vital Signs (Past 12 Hours) Vital Signs Temp Pulse Resp BP Pulse Ox O2 Del Method O2 Flow Rate 06/28/25 18:00 88 19 112/66 97 BiPAP 06/28/25 17:33 89 16 99 06/28/25 16:14 95 Nasal Cannula 4 06/28/25 16:11 90 06/28/25 15:51 87 L Nasal Cannula 06/28/25 15:51 98.4 F 93 H 16 108/64 95 Room Air FiO2 06/28/25 18:00 06/28/25 17:33 40 06/28/25 16:14 06/28/25 16:11 06/28/25 15:51 06/28/25 15:51 Code Status & VTE Plan VTE Prophylaxis Plan VTE Prophylaxis will be ordered: Yes PG Care Time/CCT Total # of Minutes Spent Total Time Spent with Patient: Total time spent is greater than 50% in coordination of care (as documented) at patient's floor/unit and/or counseling patient: Coding Level of Care Code 67857 INT INP/OBS CARE MIN Diagnoses Respiratory failure with hypoxia and hypercapnia J96.91; J96.92 Acute exacerbation of chronic obstructive pulmonary disease J44.1 Acute encephalopathy G93.40 Elevated troponin R79.89
[2025-06-28] MEDS ORDERED: POLYETHYLENE (MIRALAX) 17 GM PACK PO PRN (21:35)
[2025-06-28] MEDS ORDERED: ALUMINUM/MAGNESIUM SUSP 30 ML UDC PO PRN (21:35)
[2025-06-28] MEDS ORDERED: ONDANSETRON INJ 2 MG/ML 2 ML VIAL IV PRN (21:35)
[2025-06-28] MEDS ORDERED: SUCRALFATE 1 GM TAB PO PRN (21:35)
[2025-06-28] MEDS ORDERED: MAGNESIUM HYDROXIDE SUSP 30 ML UDC PO PRN (21:35)
[2025-06-28] MEDS ORDERED: ACETAMINOPHEN 325 MG TAB PO PRN (21:35)
[2025-06-28] MEDS ORDERED: ALBUTEROL HFA 8 GM INHALER INH PRN (21:35)
[2025-06-28] MEDS ORDERED: FLUTICASONE PROPIONATE NA SPR 16 GM BTL NAE PRN (21:35)
[2025-06-28 22:20] LABS: iSTAT Art Bld Gas Base Excess 1.0 meg/L (-9-1.8); iSTAT Art Bld Gas pCO2 Correct 58 mmHg (35-46); iSTAT Art Bld Gas pH Corrected 7.281 (7.35-7.45); iSTAT Arterial Blood Gas pO2 C 93
[2025-06-28] MEDS: ENOXAPARIN INJ 40 MG/0.4 ML SYR SQ SCH (22:27)
[2025-06-28] MEDS: AZITHROMYCIN 500 MG/255 ML BAG IV ONE (22:27)
[2025-06-28] MEDS: CARBIDOPA/LEVODOPA 25-250 1 EA TAB PO SCH (22:30)
[2025-06-28] MEDS: lamoTRIgine 25 MG TAB PO SCH (22:31)
[2025-06-28] MEDS: GABAPENTIN 300 MG CAP PO SCH (22:31)
[2025-06-28] MEDS: METHADONE HCL 10 MG TAB PO SCH (22:34)
[2025-06-28] MEDS: METHADONE HCL 5 MG TAB PO SCH (22:34)
[2025-06-29 04:50] LABS: Hematocrit (blood only) 28.8 % (37.0-47.0); Hemoglobin 9.2 g/dl (12.0-16.0); Mean Corpuscular Hemoglobin 31.7 pg (25.0-34.0); Mean Corpuscular Volume 99.3 fL (80.0-100.0); Platelet Count 171 K/uL (130-400); RDW Standard Deviation 52.0 fL (36.4-46.3); Red Blood Count 2.90 M/uL (4.20-5.40); White Blood Count 5.17 K/ul (4.8-10.8)
[2025-06-29 05:06] LABS: Anion Gap 6.0 (3-11); Blood Urea Nitrogen 18.0 mg/dl (6-23); Calcium 8.4 mg/dl (8.6-10.3); Carbon Dioxide 29.0 mmol/L (21-32); Chloride 101.0 mmol/L (98-107); Creatinine Clr Calc Pharmacy 97.7 ml/min; Glucose 129.0 mg/dl (70-99(Fasting)); Potassium 4.4 mmol/L (3.5-5.1); Sodium 136.0 mmol/L (136-145)
[2025-06-29 05:12] LABS: Immature Granulocytes # (auto) 0.02 K/uL (0.01-0.20); Immature Granulocytes % (auto) 0.4 %; Polychromasia 1+
[2025-06-29 08:22] LABS: iSTAT Art Bld Gas Base Excess 2.0 meg/L (-9-1.8); iSTAT Art Bld Gas pCO2 Correct 75 mmHg (35-46); iSTAT Art Bld Gas pH Corrected 7.214 (7.35-7.45); iSTAT Arterial Blood Gas pO2 C 27
[2025-06-29] MEDS: ASPIRIN 81 MG ECTAB PO SCH (10:43)
[2025-06-29] MEDS: CYANOCOBALAMIN (B-12) 500 MCG TABLET PO SCH (10:44)
[2025-06-29] MEDS: hydroCHLOROthiazide 25 MG TAB PO SCH (10:45)
[2025-06-29] MEDS: PERPHENAZINE 4 MG TAB PO SCH (10:45)
[2025-06-29] MEDS: OXYBUTYNIN CHLORIDE XL 5 MG TABCR PO SCH (10:45)
[2025-06-29] MEDS: VIBEGRON 75 MG TAB PO SCH (10:46)
[2025-06-29 12:07] VITALS: BP 132/79; PULSE 95; RESP 20; TEMP 98.1; O2SAT 92
--- NOTE | 2025-06-29 13:00 | Electrocardiogram Report ---
Test Reason : Blood Pressure : */* mmHG Vent. Rate : 92 BPM Atrial Rate : 92 BPM P-R Int : 150 ms QRS Dur : 82 ms QT Int : 378 ms P-R-T Axes : 64 11 53 degrees QTcB Int : 467 ms Sinus rhythm with Premature supraventricular complexes Otherwise normal ECG When compared with ECG of 17-Jun-2025 12:18, Premature supraventricular complexes are now Present Confirmed by Eulalio Porter ([id number]) on 06/29/2025 1:00:27 PM Referred By: REFERRED SELF Confirmed By: Eulalio Porter
--- NOTE | 2025-06-29 18:31 | Discharge Summary ---
Discharge Summary Date of Service June 29, 2025 Principal Dx & Hospital Course #1 = Principal Diagnosis (1) Respiratory failure with hypoxia and hypercapnia: (2) Acute exacerbation of chronic obstructive pulmonary disease: (3) Acute encephalopathy: (4) Elevated troponin: Plan #metabolic encephalopathy -most likely hypercapnea +/- hypoxia mediated, can't r/o contributions from polypharmacy - but improved and mentation now seems to be back to baseline #combined respiratory failure w hypoxia and hypercapnea -given cough and apparent not feeling well for a few days leading up to admission (will need to verify once pt able to communicate better) biggest suspicion is COPD exacerbation / viral bronchitis mechanism -bipap for hypercapnea -> clinically improved (~5am gas almost certainly was VBG, and then as day progressed mentation was good and mentation and respiratory status inconsistent wtih ongoing acute hypercapnic respiratory failure) -steroids/azithromycin - finish course -not clear what inhalers she actually has at home - seems to only have albuterol prn - will add LAMA/LABA/ICS #elevated troponin -mild demand myocardial ischemia most likely from hypoxia from above -trend to peak #concern for polypharmacy -could easily be a contributor to #1,2 above. discussed with pt and family - pt does have pill packs, rec'd having someone check on her daily if possible to ensure meds taken appropriately #metastatic neuroendocrine tumor #DVT proph -lovenox utilized during her stay pt strongly desiring to go home - discussed that given her hypercapnea yesterday i would prefer to watch her into tomorrow, but she does have capacity (and clinically has improved dramatically) - so rather than "uncontrolled AMA" discharge, felt it better for her recovery/wellbeing to discharge w steroids, zithromax, inhalers, instructions to reduce polypharmacy risk Notes For Next Care Provider Medication Changes From Visit added LAMA/LABA/ICS inhalers indefinitely short term prednisone and zithromax to finish Rx for COPD exac Admission HPI Per Admitting Provider limited HPI due to bipap and probable confusion - technical sales director froilan at bedside and assists greatly w HPI pt was not seen when expected so case workers called well check - pt found to be confused, labored breathing, deep rhonchorous cough. acting not at all herself - less responsive (they note she's normally a deep sleeper but wasn't easily arousable at all). also noted the last few days she was noticing worsening b/l LE edema. very hard to tell from pt currently - but seems to endorse feeling more SOB last few days as well. hard to glean other sx. was brought to ER found to be in respiratory distress/hypercapnea and started on bipap - now waking up and more responsive. technical sales director also notes concern about pt taking meds as Rxd currently getting chemo for neuroendocrine tumor w mets - was to have chemo today but was here instead. Updated Medication List Medication Instructions Recorded Confirmed Type lamotrigine 25 mg tablet 50 mg PO HS 09/20/21 06/28/25 History duloxetine 60 mg capsule,delayed 60 mg PO QAM 04/24/23 06/28/25 History release duloxetine 30 mg capsule,delayed 30 mg PO QPM 09/08/23 06/28/25 History release fluticasone propionate 50 2 spray intranasal DAILY PRN 12/03/24 06/28/25 History mcg/actuation nasal Allergy Symptoms spray,suspension gabapentin 300 mg capsule 300 mg PO TID 12/03/24 06/28/25 History methadone 10 mg tablet 20 mg PO TID 12/03/24 06/28/25 History methadone 5 mg tablet 5 mg PO TID 12/03/24 06/28/25 History omeprazole 20 mg tablet,delayed 20 mg PO QAM 12/03/24 06/28/25 History release perphenazine 8 mg tablet 8 mg PO QAM 12/03/24 06/28/25 History cyanocobalamin (vitamin B-12) 1,000 mcg PO QAM 01/17/25 06/28/25 History 1,000 mcg capsule solifenacin 10 mg tablet 10 mg PO QAM 01/17/25 06/28/25 History albuterol sulfate 90 mcg/actuation 2 puff inhalation Q6H PRN 03/15/25 06/28/25 Rx aerosol inhaler shortness of breath or wheezing #8.5 grams amlodipine 2.5 mg tablet 2.5 mg PO QAM #30 tabs 03/28/25 06/28/25 Rx sucralfate 1 gram tablet (Carafate) 1 g PO Q6H PRN Dysphagia #120 tabs 06/22/25 06/28/25 Rx amlodipine 5 mg tablet 5 mg PO QAM 06/28/25 06/28/25 History aspirin 81 mg tablet,delayed 81 mg PO QAM 06/28/25 06/28/25 History release carbidopa 25 mg-levodopa 250 mg 1 tab PO BID 06/28/25 06/28/25 History tablet hydrochlorothiazide 12.5 mg capsule 12.5 mg PO QAM 06/28/25 06/28/25 History mirabegron 25 mg tablet,extended 25 mg PO QAM 06/28/25 06/28/25 History release 24 hr (Myrbetriq) oxycodone 10 mg tablet 10 mg PO .EVERY 4-6 HOURS PRN 06/28/25 06/28/25 History Breakthrough Pain quetiapine 300 mg tablet 300 mg PO HS 06/28/25 06/28/25 History azithromycin 500 mg tablet 500 mg PO DAILY 3 days #3 tabs 06/29/25 Rx budesonide-formoterol HFA 160 2 inh inhalation BID 1 month #10.2 06/29/25 Rx mcg-4.5 mcg/actuation aerosol grams inhaler (Symbicort) methylprednisolone 4 mg tablets in 4 mg PO DAILY #21 ea 06/29/25 Rx a dose pack (Medrol (Harrison)) tiotropium bromide 2.5 2 inh inhalation DAILY 1 month #4 06/29/25 Rx mcg/actuation mist for inhalation grams (Spiriva Respimat) Hospital Stay Data Consultations 06/28/25 17:59 ED Decision to Admit Stat Diagnostic Imagining Performed 06/28/25 16:04 CT cervical spine wo con Stat CT head/brain wo con Stat Pending Results Patient Have Any Pending Studies at Discharge: No Discharge Instructions Given to Patient (Per Discharging Provider) You presented to the hospital with cough, weakness and not feeling well for some days. You were found to have Carbon dioxide retention which was thought to be due to acute exacerbation of your COPD and likely effect of bunch of medicine you are taking at home. For acute exacerbation of COPD, you were treated with antibiotics and steroids. Please complete course of antibiotics and steroids at home. We have also sent two new inhalers to your pharmacy because of your exacerbation of COPD. Please take them as directed. New medication -We have sent new medication called Medrol dose Harrison to your pharmacy. Please take as directed. -We have sent new medication called Azithromycin to your pharmacy. Please take as directed -We have sent new inhaler Symbicort to your pharmacy. Please take as directed. -We have sent new inhaler Spirivia to your pharmacy. Please take as directed. It is very important to followup with your PCP within one week after hospital stay. Please make sure to schedule appointment with your PCP within 1 week. Please followup immediately if you have alteration in your mental status, feel drowsy and has severe worsening of your symptoms. Total Time Total Time Spent Total Time Spent (In Minutes): <30
--- NOTE | 2025-06-29 18:32 | Billing Data ---
Date of Service June 29, 2025 Coding Level of Care Code 36186 IN/OBS DISCH 30 MIN/LESS
[2025-06-29] MEDS ORDERED: AZITHROMYCIN 250 MG in DEXTROSE 5% 250 ML IV SCH (21:00)
== END 2025-06-29 16:43 | disposition home or self-care (01) | DRG 189 ==
LOC: ED 15:43 → EDINP 18:32 → SUATTDRO 18:32 → EDINP 06-29 05:44 → 4W 06-29 06:13

== ENCOUNTER 2025-08-18 08:52 | Inpatient (IN) ==
--- NOTE | 2025-08-18 09:09 | Emergency Department Note ---
Impression & Plan Acute hypoxic respiratory failure, Neuroendocrine tumor, Multifocal pneumonia, Weakness, Chronic narcotic use ED Provider Note Provider: Wild Agarwal MD CHIEF COMPLAINT: Right arm leg weakness/right arm pain HISTORY OF PRESENT ILLNESS: Patient is a 74-year-old female with a history of COPD not on home oxygen, neuroendocrine tumor metastatic on chemotherapy with prior brain surgery reported by the patient last year, restless leg syndrome, hypertension, GERD, spinal stenosis presenting here today via ambulance from home. Patient states she is actively on chemotherapy. Reports this morning approximately 2 hours ago she tried to get up and has significant weakness of her right hand and arm as well as the right leg and to some degree the left leg although this is not quite as bad. Did fall to the ground but did not strike her head by report. She denies loss of consciousness. States she may have thrown up a little bit and reports she only had a bit of a candy bar earlier. Was incontinent of urine prior to arrival as she fell and could not get to the bathroom. Occasionally has some jerks in the extremities but she states this has been ongoing. She reports some headaches and maybe a little hard time getting her speech out. PAST MEDICAL HISTORY: As noted above MEDICATIONS: Reviewed home medication list includes aspirin SOCIAL HISTORY: Former smoker PHYSICAL EXAM: GENERAL: alert and oriented in no acute distress on stretcher fatigued in appearance smells of urine/soiled pants Head: normocephalic and atraumatic EYES: No injection, discharge or icterus. PERRL, EOMI. NECK: Trachea midline. Supple no midline cervical tenderness ENT: Mucous membranes pink and moist. No nasal swelling, contusion, or deviation. LUNGS: Airway patent. No retractions. Breath sounds clear with good air entry bilaterally. HEART: Regular rate and rhythm. No chest wall tenderness ABDOMEN: Soft and non-tender, without guarding or rebound. Stable pelvis. SKIN: Acyanotic, warm, dry, without rashes EXTREMITIES: Without swelling, tenderness or deformity NEUROLOGICAL: No aphasia. No facial droop or slurred speech. Patient with weakness with flexion extension of the right wrist and hand as well 3 out of 5 weakness of the right lower leg and 4-5 weakness left lower leg. Left upper extremity seems to be moving with strength intact. EK bpm normal sinus rhythm. No PVC or PAC. No acute ST segment elevation or depression with QTc of 447. CONTINUOUS CARDIAC MONITORING: was ordered and showed a heart rate of 90s bpm in normal sinus rhythm GCS 15. Patient's laboratory studies and imaging reviewed. Differential includes Infection, dehydration, metabolic abnormality, hypo/hyperglycemia, electrolyte disturbance, anemia, hypoxia, COPD exacerbation, URI, pneumonia, cardiac sources, intracerebral event, traumatic injury, neurologic, as well as other pathologies. IMPRESSION/MEDICAL DECISION MAKING: Patient with several complaints. Reports some headache with maybe some speech issues as well as some right arm and leg weakness as well as some left leg weakness. Unfortunately has significant history of metastatic cancer and chemotherapy and prior brain surgery/craniotomy. Not a candidate for thrombolytics because of this. Does have some movement of the right arm and leg but somewhat diminished. Stroke does maintain on the list. Also do question if she could possibly suffered a traumatic injury given the fall. No clear reported loss of conscious but she does report feeling fatigued. He is noted to be hypoxic here as well. Does have underlying history of COPD but not normally on oxygen. VBG is sent to exclude hypercarbia/acidosis. CT of the head is with CT angiograms head and neck as well as CT angiogram chest and CT abdomen pelvis was ordered look for any occult traumatic injury, intracranial bleed, vascular abnormality or PE. VBG here borderline acidosis pH 7.3 with a CO2 of 66. No significant anemia. Significant leukocytosis 15.5 today. Lactate and blood cultures ordered. Given a 500 cc IV fluid bolus although not hypotensive here for hydration given limited intake this morning. Procalcitonin later does return elevated at 6.4. Lactate nonelevated at 1.5. Troponin 21.4 not severely elevated. Creatinine 1.4 off of baseline and again given some IV fluid hydration. Given these findings and hypoxia, will cover broadly with cefepime and vancomycin at this time. Negative respiratory viral panel. CT of the head and CT angiogram of the head per radiology without acute intracranial abnormality/bleed or acute vascular abnormality reported. CT angiogram of the neck and chest per radiology with some bilateral 50% carotid stenosis without aneurysm dissection but findings concerning for multifocal pneumonia. CT of the abdomen pelvis per radiology without intraabdominal process. Believe likely infectious pneumonia and weakness related to that. Will bring in for antibiotics and further care. She was updated; drowsy but arousable. Hospitalist contacted. Repeat VBG completed to ensure no worsening hypercarbia. This returns the same and nursing confirms new sample. Talked with lab who also says they ran a new sample. ABG ordered and bsg. CT Head already completed. Do not feel she required intubation at this point, but hospitalist wished for me to talk with the ICU. Did give her 0.4 mg of Narcan however with good improvement of her symptoms. Thus we will hold off on ICU admission given her significant improvement. Does have again illness as well as worsened renal function may have some accumulation of her chronic pain medicines and methadone. Do not see pain patch in place at this time. She does remove her BiPAP and is keenly awake sitting in bed now. Given some Ativan for anxiety after this. Updated hospitalist. DIAGNOSIS: Weakness, fall, hypoxia, multifocal pneumonia DISPOSITION: Hospitalist will evaluate Patient was agreeable with this plan. Critical Care I have personally spent 54 minutes of critical care time in the direct management of this patient. This includes bedside care, interpretation of diagnostic studies, and testing, discussion with consultants, patient, and other required patient management activities. These 54 minutes is in excess of all separately billable procedures. 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 Per records- CTA of head in Jul 2018 show no aneurysms - including basilar artery Allergic rhinitis (Acute) Generalized muscle weakness (Acute) Cervical spondylosis (Acute) Emphysema lung (Chronic) Mixed anxiety and depressive disorder (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) HTN (hypertension) (Chronic 01/06/15) GERD (gastroesophageal reflux disease) (Chronic) Spinal stenosis (Chronic) COPD (chronic obstructive pulmonary disease) (Chronic) Medical History Muscle weakness able to ambulate independently; when feeling weak uses motorized WC 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 bx 01/06/25; pathology nondiagnostic; per general surgery note 'likely SCC' Neuroendocrine tumor small cell neuroendocrine tumor; per heme/onc note 12/17/24, primarily located at posterior skull; s/p resection of lesions 2018 and 2020; also s/p chemo; developed spinal lesions and skeletal lesions which were tx with XRT; on palliative care currently Spinal stenosis RLS (restless legs syndrome) taking carbidopa/levodopa OAB (overactive bladder) Mixed anxiety and depressive disorder Hx of hyperlipidemia History of hypertension Hx of gastroesophageal reflux (GERD) no recent issues Emphysema lung COPD (chronic obstructive pulmonary disease) admitted 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 12/02-12/04/24; dx acute hypoxemic respiratory failure/COPD exacerbation History of cancer of vulva dx "many years ago," S/p vulvectomy H. pylori infection hx Stomach ulcer hx, no recent issues Surgical History History of surgery (02/15/25) Right Lower Extremity Wide Local Excision of Squamous Cell Carcinoma, intermediate layered closure (Right) - Chi Mathew DO History of open reduction and internal fixation (ORIF) procedure right foot > hardware intact Hx of colonoscopy (2018) Status post right knee replacement S/P excision of lipoma History of spinal surgery LUMBAR FUSION H/O brain surgery 2 tumor removals: 2018 and 03/29/21: Resection of Occipital Subgaleal Lesion Dr. Curt Wen at [facility] H/O exploratory laparotomy (2019) History of anesthesia reaction PT STATES THAT SHE WOKE UP TWICE DURING PREVIOUS COLONOSCOPY AND WAS ADVISED TO ALERT STAFF OF THIS FOR FUTURE PROCEDURES. History of surgery REMOVAL OF RIGHT LABIA FOLLOWING DX OF VULVA CANCER Family History Mother , Passed Age 90's due to stroke Depression Hypertension Anxiety Stroke Sister Depression Hypertension Cerebral aneurysm Anxiety Father , in his mid to later 40s of an CA Hypertension Myocardial infarction Cardiac disorder Anxiety Lymphoma Cancer Other Family history non-contributory Has no children Denies family history of Ovarian cancer Prostate cancer Breast cancer Colorectal cancer Social History Smoking Status: Never smoker Tobacco Type: Cigarettes Age Started Using Tobacco: 20; Age Quit Using Tobacco: 20; packs per day: 0.25; Second Hand Exposure: No; Do You Dip or Chew Tobacco: No; Hx Alcohol Use: No Hx Substance Use: No Preferred Language: Chadian Communication Ability: Effective Visual Impairment: No Limitations Hearing Ability: Hard of Hearing Trucker Hand Required: No Beliefs That Will Affect Care: None marital status: / Current Living Situation: Personal Care Facility Current Living Situation Comment: Home with caregivers per patient current occupational status: disabled 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 [employer] How many Children do You have: 0 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) Feels Safe at Home: Yes Childhood Exposure to Second-Hand Smoke: Yes Diet: regular caffeine: Yes (half a cup of coffee daily) during the past year weight has: decreased > 10 lbs Dental Care, Regularly: Yes Physical Activity Frequency: Does not Exercise Seatbelt Use: always Sunscreen Use: No Assistive Devices: Cane, Lift Chair, Walker and Wheelchair Allergies Allergies Allergy/AdvReac Type Severity Reaction Status Date / Time codeine Allergy Unknown itching Verified 06/22/25 07:34 Home Meds Home Medications Medication Instructions Recorded Confirmed lamotrigine 25 mg tablet 50 mg PO HS 09/20/21 08/18/25 duloxetine 60 mg capsule,delayed 60 mg PO QAM 04/24/23 08/18/25 release duloxetine 30 mg capsule,delayed 30 mg PO QPM 09/08/23 08/18/25 release gabapentin 300 mg capsule 300 mg PO TID 12/03/24 08/18/25 methadone 10 mg tablet 20 mg PO TID 12/03/24 08/18/25 methadone 5 mg tablet 5 mg PO TID 12/03/24 08/18/25 omeprazole 20 mg tablet,delayed 20 mg PO QAM 12/03/24 08/18/25 release cyanocobalamin (vitamin B-12) 1,000 mcg PO QAM 01/17/25 08/18/25 1,000 mcg capsule amlodipine 5 mg tablet 5 mg PO QAM 06/28/25 08/18/25 aspirin 81 mg tablet,delayed 81 mg PO QAM 06/28/25 08/18/25 release hydrochlorothiazide 12.5 mg capsule 12.5 mg PO QAM 06/28/25 08/18/25 mirabegron 25 mg tablet,extended 25 mg PO QAM 06/28/25 08/18/25 release 24 hr (Myrbetriq) oxycodone 10 mg tablet 10 mg PO .EVERY 4-6 HOURS PRN 06/28/25 08/18/25 Breakthrough Pain quetiapine 300 mg tablet 300 mg PO HS 06/28/25 08/18/25 Previous Rx's Medication Instructions Recorded albuterol sulfate 90 mcg/actuation 2 puff inhalation Q6H PRN 03/15/25 aerosol inhaler shortness of breath or wheezing #8.5 grams amlodipine 2.5 mg tablet 2.5 mg PO QAM #30 tabs 03/28/25 budesonide-formoterol HFA 160 2 inh inhalation BID 1 month #10.2 06/29/25 mcg-4.5 mcg/actuation aerosol grams inhaler (Symbicort) tiotropium bromide 2.5 2 inh inhalation DAILY 1 month #4 06/29/25 mcg/actuation mist for inhalation grams (Spiriva Respimat) fluticasone propionate 50 2 spray intranasal DAILY PRN 07/20/25 mcg/actuation nasal Allergy Symptoms #16 grams spray,suspension carbidopa 25 mg-levodopa 250 mg 1 tab PO BID #60 tabs 07/29/25 tablet Results & Data (ED) Vital Signs Vital Signs - 24 hr 08/18/25 09:00 08/18/25 09:00 08/18/25 09:00 Pulse Rate 90 90 Pulse Rate [Apical] 90 Respiratory Rate 18 18 18 Respiratory Effort / Characteristics Respiratory Depth Respiratory Pattern Blood Pressure 117/81 Blood Pressure [Right Arm] 117/81 Blood Pressure Mean 93 Blood Pressure Mean [Right Arm] 93 Blood Pressure Position [Right Arm] Semi-fowlers Pulse Oximetry 92 92 92 Oxygen Delivery Method Nasal Cannula Nasal Cannula Nasal Cannula Oxygen Flow Rate 2 2 2 Fraction of Inspired Oxygen Sepsis Recent Fever Within 48 Hours No Sepsis New/Unexplained Change in Mental Status Yes Sepsis Action Taken by Nursing No Action Required Oxygen Flow Rate - Titration Pulse Oximetry Post Tiitration 08/18/25 09:00 08/18/25 09:02 08/18/25 10:29 Pulse Rate 92 H Pulse Rate [Apical] 96 H Respiratory Rate 20 Respiratory Effort / Characteristics Non-Labored Respiratory Depth Normal Respiratory Pattern Blood Pressure Blood Pressure [Right Arm] 152/81 H Blood Pressure Mean Blood Pressure Mean [Right Arm] 104 Blood Pressure Position [Right Arm] Pulse Oximetry 83 L 95 Oxygen Delivery Method Nasal Cannula Nasal Cannula Oxygen Flow Rate 0 5 Fraction of Inspired Oxygen Sepsis Recent Fever Within 48 Hours Sepsis New/Unexplained Change in Mental Status Sepsis Action Taken by Nursing Oxygen Flow Rate - Titration 2 Pulse Oximetry Post Tiitration 92 08/18/25 12:00 08/18/25 12:19 08/18/25 12:25 Pulse Rate 94 H Pulse Rate [Apical] 96 H Respiratory Rate 19 Respiratory Effort / Characteristics Respiratory Depth Respiratory Pattern Blood Pressure Blood Pressure [Right Arm] 128/90 Blood Pressure Mean Blood Pressure Mean [Right Arm] 102 Blood Pressure Position [Right Arm] Pulse Oximetry 89 L 96 Oxygen Delivery Method Nasal Cannula BiPAP Oxygen Flow Rate 5 Fraction of Inspired Oxygen 40 Sepsis Recent Fever Within 48 Hours Sepsis New/Unexplained Change in Mental Status Sepsis Action Taken by Nursing Oxygen Flow Rate - Titration Pulse Oximetry Post Tiitration 08/18/25 12:30 08/18/25 12:35 08/18/25 13:11 Pulse Rate 117 H Pulse Rate [Apical] 114 H 114 H Respiratory Rate 42 H 38 H Respiratory Effort / Characteristics Labored SOB on Exertion Tripoding Labored Respiratory Depth Shallow Shallow Respiratory Pattern Tachypnea Blood Pressure Blood Pressure [Right Arm] 117/71 Blood Pressure Mean Blood Pressure Mean [Right Arm] 86 Blood Pressure Position [Right Arm] Sitting Pulse Oximetry 94 94 Oxygen Delivery Method BiPAP BiPAP Oxygen Flow Rate Fraction of Inspired Oxygen Sepsis Recent Fever Within 48 Hours Sepsis New/Unexplained Change in Mental Status Sepsis Action Taken by Nursing Oxygen Flow Rate - Titration Pulse Oximetry Post Tiitration 08/18/25 14:34 08/18/25 14:57 Pulse Rate 96 H Pulse Rate [Apical] 97 H Respiratory Rate 23 16 Respiratory Effort / Characteristics Non-Labored Spontaneous Non-Labored Spontaneous Respiratory Depth Normal Normal Respiratory Pattern Regular Blood Pressure Blood Pressure [Right Arm] 149/86 H Blood Pressure Mean Blood Pressure Mean [Right Arm] 107 Blood Pressure Position [Right Arm] Lying Pulse Oximetry 99 96 Oxygen Delivery Method BiPAP Oxygen Flow Rate Fraction of Inspired Oxygen 30 Sepsis Recent Fever Within 48 Hours Sepsis New/Unexplained Change in Mental Status Sepsis Action Taken by Nursing Oxygen Flow Rate - Titration Pulse Oximetry Post Tiitration Laboratory Data 08/18/25 09:05 08/18/25 09:05 Lab Results 08/18/25 08/18/25 08/18/25 Range/Units 09:05 09:17 09:45 WBC 15.56 H (4.8-10.8) K/ul RBC 3.82 L (4.20-5.40) M/uL Hgb 11.1 L (12.0-16.0) g/dl POC Hgb 13.3 (12.0-16.0) g/dl Hct 35.4 L (37.0-47.0) % POC Hct 39 (37-47) % MCV 92.7 (80.0-100.0) fL MCH 29.1 (25.0-34.0) pg MCHC 31.4 L (32.0-36.0) g/dL RDW Std Deviation 53.4 H (36.4-46.3) fL RDW Coeff of Ginger 16.0 H (11.5-14.5) % Plt Count 261 (130-400) K/uL MPV 9.6 (9.4-12.4) fL Immature Gran % (Auto) 0.3 % Neut % (Auto) 93.9 % Lymph % (Auto) 1.6 % Montgomery % (Auto) 3.9 % Eos % (Auto) 0.0 % Baso % (Auto) 0.3 % Neut # (Auto) 14.62 H (1.40-6.50) K/uL Lymph # (Auto) 0.25 L (1.20-3.40) K/uL Montgomery # (Auto) 0.60 H (0.11-0.59) K/uL Eos # (Auto) 0.00 (0.00-0.50) K/uL Baso # (Auto) 0.04 (0.00-0.20) K/uL Immature Gran # (Auto) 0.05 (0.01-0.20) K/uL Absolute Nucleated RBC 0.02 (0.00-0.12) K/uL Nucleated RBC % (auto) 0.1 % Polychromasia 1+ Specimen Type Sample Site POC pH (7.35-7.45) POC pCO2 (35-46) mmHg POC pO2 (80-95) mmHg POC HCO3 (19-24) mmol/L POC Base Excess (-9-1.8) mmol/L O2 Sat Pulse Oximetry ABG pH (Temp Correct) (7.35-7.45) ABG pCO2 (Temp Corrct (35-46) mmHg POC ABG pO2 at Pt Temp POC ABG O2 Sat (90-95) % Miguelito Test VBG pH 7.30 L (7.36-7.41) VBG pCO2 66 H (38-50) mmHg VBG pO2 31 mmHg VBG HCO3 32 mmol/L VBG O2 Saturation < 60.0 % VBG Base Excess 3.2 mEq/L O2 Delivery Device POC Sodium 133 L (135-144) mmol/L Sodium 135 L (136-145) mmol/L POC Potassium 3.6 (3.3-5.0) mmol/L Potassium 3.8 (3.5-5.1) mmol/L POC Chloride 96 L (101-112) mmol/L Chloride 92 L (98-107) mmol/L Carbon Dioxide 31 (21-32) mmol/L POC Total CO2 29 (24-31) mmol/L Anion Gap 12 H (3-11) POC Anion Gap 13.0 L (16-25) mmol/L POC BUN 39 H (7-18) mg/dl BUN 44 H (6-23) mg/dl Creatinine 1.43 H (0.6-1.2) mg/dl POC Creatinine 1.6 H (0.6-1.3) mg/dl Est Cr Clr Drug Dosing 36.5 ml/min eGFR 38.97 BUN/Creatinine Ratio 30.8 H (10-20) Glucose 117 H (70-99(Fasting)) mg/dl POC Glucose (70-99) mg/dl POC Glucose (other) 119 H (70-99) mg/dl Lactate 1.5 (0.4-2.0) mmol/L Calcium 8.7 (8.6-10.3) mg/dl POC Ioniz Calcium Ad 0.97 L (1.12-1.32) mmol/l Magnesium 2.0 (1.7-2.4) mg/dl Total Bilirubin 0.7 (0.2-1.0) mg/dl AST 54 H (13-39) U/L ALT 15 (7-52) U/L Alkaline Phosphatase 85 (34-104) U/L Troponin I High Sens 21.4 H (0-14) pg/ml Total Protein 7.7 (6.0-8.3) gm/dl Albumin 4.3 (3.4-5.0) gm/dl Globulin 3.4 (2.5-4.0) gm/dl Albumin/Globulin Ratio 1.3 (0.9-2) Procalcitonin 6.40 H (0-0.5) ng/ml TSH 1.656 (0.300-4.500) uIu/ml Adenovirus (PCR) Not Detected (NotDetected) B. pertussis DNA (PCR) Not Detected (NotDetected) B.parapertussis DNA PCR Not Detected (NotDetected) C. pneumoniae DNA (PCR) Not Detected (NotDetected) Coronavirus OC43 (PCR) Not Detected (NotDetected) Coronavirus HKU1 (PCR) Not Detected (NotDetected) Coronavirus 229E (PCR) Not Detected (NotDetected) SARS-CoV-2 (PCR) Not Detected (NotDetected) Coronavirus NL63 (PCR) Not Detected (NotDetected) Human Metapneumovir PCR Not Detected (NotDetected) Influenza Type A (PCR) Not Detected (NotDetected) Influenza Type B (PCR) Not Detected (NotDetected) M. pneumoniae (PCR) Not Detected (NotDetected) Parainfluenza 1 (PCR) Not Detected (NotDetected) Parainfluenza 2 (PCR) Not Detected (NotDetected) Parainfluenza 3 (PCR) Not Detected (NotDetected) Parainfluenza 4 (PCR) Not Detected (NotDetected) RSV (PCR) Not Detected (NotDetected) Entero/Rhino (PCR) Not Detected (NotDetected) 08/18/25 08/18/25 08/18/25 Range/Units 11:23 11:45 12:15 WBC (4.8-10.8) K/ul RBC (4.20-5.40) M/uL Hgb (12.0-16.0) g/dl POC Hgb 9.9 L (12.0-16.0) g/dl Hct (37.0-47.0) % POC Hct 29 L (37-47) % MCV (80.0-100.0) fL MCH (25.0-34.0) pg MCHC (32.0-36.0) g/dL RDW Std Deviation (36.4-46.3) fL RDW Coeff of Ginger (11.5-14.5) % Plt Count (130-400) K/uL MPV (9.4-12.4) fL Immature Gran % (Auto) % Neut % (Auto) % Lymph % (Auto) % Montgomery % (Auto) % Eos % (Auto) % Baso % (Auto) % Neut # (Auto) (1.40-6.50) K/uL Lymph # (Auto) (1.20-3.40) K/uL Montgomery # (Auto) (0.11-0.59) K/uL Eos # (Auto) (0.00-0.50) K/uL Baso # (Auto) (0.00-0.20) K/uL Immature Gran # (Auto) (0.01-0.20) K/uL Absolute Nucleated RBC (0.00-0.12) K/uL Nucleated RBC % (auto) % Polychromasia Specimen Type Arterial Sample Site L Radial POC pH 7.30 L (7.35-7.45) POC pCO2 63 H (35-46) mmHg POC pO2 57 L (80-95) mmHg POC HCO3 31 H (19-24) mmol/L POC Base Excess 5.0 H (-9-1.8) mmol/L O2 Sat Pulse Oximetry 91 ABG pH (Temp Correct) 7.301 L (7.35-7.45) ABG pCO2 (Temp Corrct 63 H (35-46) mmHg POC ABG pO2 at Pt Temp 57 POC ABG O2 Sat 85.0 L (90-95) % Miguelito Test Pass VBG pH 7.30 L (7.36-7.41) VBG pCO2 66 H (38-50) mmHg VBG pO2 35 mmHg VBG HCO3 33 mmol/L VBG O2 Saturation < 60.0 % VBG Base Excess 4.0 mEq/L O2 Delivery Device Cannula POC Sodium 134 L (135-144) mmol/L Sodium (136-145) mmol/L POC Potassium 3.5 (3.3-5.0) mmol/L Potassium (3.5-5.1) mmol/L POC Chloride (101-112) mmol/L Chloride (98-107) mmol/L Carbon Dioxide (21-32) mmol/L POC Total CO2 33 H (24-31) mmol/L Anion Gap (3-11) POC Anion Gap (16-25) mmol/L POC BUN (7-18) mg/dl BUN (6-23) mg/dl Creatinine (0.6-1.2) mg/dl POC Creatinine (0.6-1.3) mg/dl Est Cr Clr Drug Dosing ml/min eGFR BUN/Creatinine Ratio (10-20) Glucose (70-99(Fasting)) mg/dl POC Glucose (70-99) mg/dl POC Glucose (other) (70-99) mg/dl Lactate (0.4-2.0) mmol/L Calcium (8.6-10.3) mg/dl POC Ioniz Calcium Ad (1.12-1.32) mmol/l Magnesium (1.7-2.4) mg/dl Total Bilirubin (0.2-1.0) mg/dl AST (13-39) U/L ALT (7-52) U/L Alkaline Phosphatase (34-104) U/L Troponin I High Sens 22.3 H (0-14) pg/ml Total Protein (6.0-8.3) gm/dl Albumin (3.4-5.0) gm/dl Globulin (2.5-4.0) gm/dl Albumin/Globulin Ratio (0.9-2) Procalcitonin (0-0.5) ng/ml TSH (0.300-4.500) uIu/ml Adenovirus (PCR) (NotDetected) B. pertussis DNA (PCR) (NotDetected) B.parapertussis DNA PCR (NotDetected) C. pneumoniae DNA (PCR) (NotDetected) Coronavirus OC43 (PCR) (NotDetected) Coronavirus HKU1 (PCR) (NotDetected) Coronavirus 229E (PCR) (NotDetected) SARS-CoV-2 (PCR) (NotDetected) Coronavirus NL63 (PCR) (NotDetected) Human Metapneumovir PCR (NotDetected) Influenza Type A (PCR) (NotDetected) Influenza Type B (PCR) (NotDetected) M. pneumoniae (PCR) (NotDetected) Parainfluenza 1 (PCR) (NotDetected) Parainfluenza 2 (PCR) (NotDetected) Parainfluenza 3 (PCR) (NotDetected) Parainfluenza 4 (PCR) (NotDetected) RSV (PCR) (NotDetected) Entero/Rhino (PCR) (NotDetected) 08/18/25 Range/Units 12:16 WBC (4.8-10.8) K/ul RBC (4.20-5.40) M/uL Hgb (12.0-16.0) g/dl POC Hgb (12.0-16.0) g/dl Hct (37.0-47.0) % POC Hct (37-47) % MCV (80.0-100.0) fL MCH (25.0-34.0) pg MCHC (32.0-36.0) g/dL RDW Std Deviation (36.4-46.3) fL RDW Coeff of Ginger (11.5-14.5) % Plt Count (130-400) K/uL MPV (9.4-12.4) fL Immature Gran % (Auto) % Neut % (Auto) % Lymph % (Auto) % Montgomery % (Auto) % Eos % (Auto) % Baso % (Auto) % Neut # (Auto) (1.40-6.50) K/uL Lymph # (Auto) (1.20-3.40) K/uL Montgomery # (Auto) (0.11-0.59) K/uL Eos # (Auto) (0.00-0.50) K/uL Baso # (Auto) (0.00-0.20) K/uL Immature Gran # (Auto) (0.01-0.20) K/uL Absolute Nucleated RBC (0.00-0.12) K/uL Nucleated RBC % (auto) % Polychromasia Specimen Type Sample Site POC pH (7.35-7.45) POC pCO2 (35-46) mmHg POC pO2 (80-95) mmHg POC HCO3 (19-24) mmol/L POC Base Excess (-9-1.8) mmol/L O2 Sat Pulse Oximetry ABG pH (Temp Correct) (7.35-7.45) ABG pCO2 (Temp Corrct (35-46) mmHg POC ABG pO2 at Pt Temp POC ABG O2 Sat (90-95) % Miguelito Test VBG pH (7.36-7.41) VBG pCO2 (38-50) mmHg VBG pO2 mmHg VBG HCO3 mmol/L VBG O2 Saturation % VBG Base Excess mEq/L O2 Delivery Device POC Sodium (135-144) mmol/L Sodium (136-145) mmol/L POC Potassium (3.3-5.0) mmol/L Potassium (3.5-5.1) mmol/L POC Chloride (101-112) mmol/L Chloride (98-107) mmol/L Carbon Dioxide (21-32) mmol/L POC Total CO2 (24-31) mmol/L Anion Gap (3-11) POC Anion Gap (16-25) mmol/L POC BUN (7-18) mg/dl BUN (6-23) mg/dl Creatinine (0.6-1.2) mg/dl POC Creatinine (0.6-1.3) mg/dl Est Cr Clr Drug Dosing ml/min eGFR BUN/Creatinine Ratio (10-20) Glucose (70-99(Fasting)) mg/dl POC Glucose 157 H (70-99) mg/dl POC Glucose (other) (70-99) mg/dl Lactate (0.4-2.0) mmol/L Calcium (8.6-10.3) mg/dl POC Ioniz Calcium Ad (1.12-1.32) mmol/l Magnesium (1.7-2.4) mg/dl Total Bilirubin (0.2-1.0) mg/dl AST (13-39) U/L ALT (7-52) U/L Alkaline Phosphatase (34-104) U/L Troponin I High Sens (0-14) pg/ml Total Protein (6.0-8.3) gm/dl Albumin (3.4-5.0) gm/dl Globulin (2.5-4.0) gm/dl Albumin/Globulin Ratio (0.9-2) Procalcitonin (0-0.5) ng/ml TSH (0.300-4.500) uIu/ml Adenovirus (PCR) (NotDetected) B. pertussis DNA (PCR) (NotDetected) B.parapertussis DNA PCR (NotDetected) C. pneumoniae DNA (PCR) (NotDetected) Coronavirus OC43 (PCR) (NotDetected) Coronavirus HKU1 (PCR) (NotDetected) Coronavirus 229E (PCR) (NotDetected) SARS-CoV-2 (PCR) (NotDetected) Coronavirus NL63 (PCR) (NotDetected) Human Metapneumovir PCR (NotDetected) Influenza Type A (PCR) (NotDetected) Influenza Type B (PCR) (NotDetected) M. pneumoniae (PCR) (NotDetected) Parainfluenza 1 (PCR) (NotDetected) Parainfluenza 2 (PCR) (NotDetected) Parainfluenza 3 (PCR) (NotDetected) Parainfluenza 4 (PCR) (NotDetected) RSV (PCR) (NotDetected) Entero/Rhino (PCR) (NotDetected) Administered Medications Parenteral Electrolytes (Plasma-Lyte A Ph 7.4) 1,000 mls @ 80 mls/hr IV .[id number] DENISA Stop: 08/21/25 14:29 Last Admin: 08/18/25 15:16 Dose: 80 mls/hr Documented By: CC Discontinued Medications Sodium Chloride (Nss) 500 mls @ 999 mls/hr IV .Q31M ONE Stop: 08/18/25 10:06 Last Infusion: 08/18/25 11:01 Dose: Infused Documented By: amg Admin: 08/18/25 10:26 Dose: 999 mls/hr Documented By: MMG Vancomycin HCl 1,500 mg/ (Sodium Chloride) 530 mls @ 200 mls/hr IV NOW ONE Stop: 08/18/25 13:03 Last Admin: 08/18/25 11:50 Dose: 200 mls/hr Documented By: shavon Piperacillin Sod/Tazobactam Sod (Zosyn) 4.5 gm in 100 mls @ 200 mls/hr IV NOW ONE; Protocol Stop: 08/18/25 10:54 Last Infusion: 08/18/25 11:45 Dose: Infused Documented By: shavon Admin: 08/18/25 11:05 Dose: 200 mls/hr Documented By: shavon Ioversol (Optiray 320 125ml) 112 ml IV ONCE ONE Stop: 08/18/25 10:09 Last Admin: 08/18/25 10:09 Dose: 112 ml Documented By: ARABELLA Lorazepam (Lorazepam 1 Mg/1 Ml Syr Ed Inj Use) 1 mg IV ONE STA Stop: 08/18/25 12:53 Last Admin: 08/18/25 12:54 Dose: 1 mg Documented By: CC Lorazepam (Lorazepam 1 Mg/1 Ml Syr Ed Inj Use) Confirm Administered Dose 1 mg .ROUTE .STK-MED ONE Stop: 08/18/25 12:54 Last Admin: 08/18/25 12:57 Dose: Not Given Documented By: CC Naloxone HCl (Naloxone Hcl 0.4 Mg/1 Ml Vial/Carp) 0.4 mg IV NOW STA Stop: 08/18/25 12:26 Last Admin: 08/18/25 12:31 Dose: 0.4 mg Documented By: shavon Imaging Data Radiologist's Impression: Abdomen/Pelvis CT 08/18/25 09:00 CT SCAN OF THE ABDOMEN AND PELVIS WITH IV CONTRAST CLINICAL HISTORY: Fall. Weakness. COMPARISON STUDY: CT of the abdomen and pelvis July 19, 2025. TECHNIQUE: Following the IV administration of 112 cc of Optiray 320, CT scan of the abdomen and pelvis is performed from the lung bases to the proximal femora. Images are reviewed in the axial, sagittal, and coronal planes. IV contrast was administered without complication. A dose lowering technique was utilized adhering to the principles of ALARA. CT DOSE: 1803.68 mGy.cm FINDINGS: Extensive bilateral lower lobe alveolar opacities have developed since CT of July 19, 2025. These are better depicted on the same day chest CT which will be reported separately. No hemoperitoneum or pneumoperitoneum is present. No evidence for traumatic injury to the solid abdominal viscera. Mild dilatation of the common bile duct is unchanged. There are no hepatic lesions. There is hepatic steatosis. Sensitivity for detection of renal calculi diminished given excreted contrast. There is no evidence for a bowel obstruction. There is a moderate amount of stool within the colon. There is no lymphadenopathy. No fluid collections are present. Postoperative findings within the lumbosacral spine are again noted. There are no acute fractures within the lumbar spine, pelvis or hips. IMPRESSION: 1. No acute traumatic findings within the abdomen or pelvis. 2. Interval development of extensive bilateral lower lobe alveolar opacities since CT of July 19, 2025. The findings suggest pneumonia or aspiration pneumonitis, better depicted on the chest CT which will be reported separately. ACT 112: Negative or not required by law. Electronically signed by: Daryl Keita M.D. 08/18/2025 11:00 AM Chest CTA 08/18/25 09:00 CT angio chest PE protocol CT DOSE: 1443.02 mGy.cm HISTORY: hypoxic, fall, MURILLO, R weak. TECHNIQUE: Multiple CTA images of the chest were obtained after the intravenous administration of 112 ml Optiray. Coronal and sagittal MIPS were obtained from the axial data set and were submitted for review. All measurements were obtained according to NASCET criteria. A dose lowering technique was utilized adhering to the principles of ALARA. COMPARISON STUDY: 07/19/2025 FINDINGS: There is motion artifact due to difficulty breath holding. There are mild airway secretions. There is interval scattered areas of patchy consolidation most prominent at the lung bases, consistent with acute pneumonia. There is no pleural effusion or pneumothorax. Stable left hilar mass measuring 3 cm. No pericardial effusion. There are diffuse coronary artery calcifications. No thoracic aortic dissection or aneurysm seen. Evaluation of the tiny distal pulmonary arterial branches is limited by motion. No pulmonary embolism seen. There are moderate thoracic spine degenerative changes. No acute osseous findings. IMPRESSION: 1. No pulmonary embolism seen. 2. Bilateral pneumonia. Recommend follow-up chest CT in 3 months to make sure this resolves without underlying pulmonary nodule. 3. Otherwise as described. ACT 112: Positive. There are findings on this exam that require communication between the performing entity and the patient following Patient Test Result Information Act ([place] Act 112) guidelines. The above report was generated using voice recognition software. It may contain grammatical, syntax or spelling errors. Electronically signed by: Shoaib Bah M.D. 08/18/2025 11:21 AM Chest X-Ray 08/18/25 09:00 XR chest 1V portable CLINICAL HISTORY: weakness, fall COMPARISON STUDY: 06/28/2025 FINDINGS: Stable mild cardiomegaly with mild pulmonary vascular congestion. There are interval faint patchy opacities at the mid and lower lungs. No pleural effusion or pneumothorax. IMPRESSION: Early bilateral pneumonia. ACT 112: Negative or not required by law. Electronically signed by: Shoaib Bah M.D. 08/18/2025 11:[address] 08/18/25 09:00 CT head/brain wo con CLINICAL HISTORY: fall, MURILLO, R weak. TECHNIQUE: Multiple axial CT images of the head were obtained without contrast. A dose lowering technique was utilized adhering to the principles of ALARA. COMPARISON: 06/28/2025 FINDINGS: No intracranial hemorrhage seen. No mass effect, midline shift, or hydrocephalus. No skull fracture seen. Visualized paranasal sinuses and mastoid air cells are clear. Stable small right parieto-occipital craniotomy. IMPRESSION: No acute findings. ACT 112: Negative or not required by law. The above report was generated using voice recognition software. It may contain grammatical, syntax or spelling errors. Electronically signed by: Shoaib Bah M.D. 08/18/2025 10:27 AM Head CTA 08/18/25 09:00 CT angio head w con CLINICAL HISTORY: 74 years-old Female with fall, MURILLO, R weak. Acute headache with right-sided weakness/stroke like symptoms COMPARISON STUDY: Head CT of same day and also 06/17/2025, CTA head 08/07/2018. TECHNIQUE: Following the IV administration of 112 cc of Optiray, CT angiogram of the brain was performed from the skull base to the vertex. Images are reviewed in the axial, sagittal, and coronal planes. 3-D MIPS images are created and assessed. IV contrast was administered without complication. All measurements were obtained according to NASCET criteria. A dose lowering technique was utilized adhering to the principles of ALARA. FINDINGS: Motion degraded exam. CT BRAIN: Dictated separately. Involutional changes with chronic microvascular ischemic disease. Right occipital craniectomy changes are present. CT ANGIOGRAM OF THE BRAIN: The imaged bilateral internal carotid arteries are patent. The bilateral anterior and middle cerebral arteries are also patent. The vertebrobasilar system and posterior cerebral arteries are widely patent. There is no aneurysm, high-grade stenosis, or proximal branch occlusion identified. Dural sinuses appear patent. Mild dilation of the superior ophthalmic veins, of doubtful clinical significance. IMPRESSION: Unremarkable CTA of the head. ACT 112: Negative or not required by law. The above report was generated using voice recognition software. It may contain grammatical, syntax or spelling errors. Electronically signed by: Kervin Chaudhari M.D. 08/18/2025 10:36 AM Neck CTA 08/18/25 09:00 CT ANGIOGRAPHY OF THE NECK WITH CONTRAST CLINICAL HISTORY: Fall. Headache. Right-sided weakness. COMPARISON STUDY: Cervical spine CT June 28, 2025. Carotid ultrasound November 04, 2011. Technique: CT angiography of the carotid and vertebral arteries was obtained using Optiray and 3D reconstruction on an independent workstation. NASCET criteria was utilized. Automated exposure control was utilized for the study. A dose lowering technique was utilized adhering to the principles of ALARA. Findings: Visualized portions of the lung apices demonstrate scattered alveolar opacities within the right upper lobe, new since cervical spine CT of June 28, 2025. There is underlying emphysema. The findings are better depicted on the chest CT which will be reported separately. No acute cervical spine fractures are noted. Mild loss of height of the inferior endplate of C4 is unchanged. Mixed lucent and sclerotic appearance of the C4 vertebral body remains indeterminate. This is unchanged. The left vertebral artery is dominant. The right vertebral artery is somewhat diminutive on a congenital basis. There is moderate atherosclerotic plaque within the proximal bilateral internal carotid arteries. This results in 50% stenosis of the proximal bilateral internal carotid arteries. IMPRESSION: 1. Moderate atherosclerotic plaque which results in 50% stenosis of the proximal bilateral internal carotid arteries. 2. No aneurysm or dissection within the neck. 3. Right upper lobe alveolar opacities better depicted on the chest CT. These suggest pneumonia or aspiration pneumonitis. ACT 112: Negative or not required by law. Electronically signed by: Daryl Keita M.D. 08/18/2025 10:54 AM Discharge Plan Visit Data Chief Complaint: Weakness Stated Complaint: R ARM PAIN, R ARM & LEG WEAKNESS ED Provider: Wild Agarwal Discharge Problem: Acute hypoxic respiratory failure, Neuroendocrine tumor, Multifocal pneumonia, Weakness, Chronic narcotic use Patient Disposition: Being Evaluated by Hospitalist Condition: Serious Discharge Instructions Interventions: ED Discharge Assessment Last Done: 08/18/25 15:12 Forms Stand Alone Forms: My [facility] [employer] Prescriptions Prescriptions: No Action albuterol sulfate 90 mcg/actuation HFA aerosol inhaler 2 puff inhalation Q6H PRN (Reason: shortness of breath or wheezing) Qty: 8.5 5RF amlodipine 2.5 mg tablet 2.5 mg PO QAM Qty: 30 5RF Rx Instructions: Take together with 5 mg tab for TDD 7.5 mg fluticasone propionate 50 mcg/actuation spray,suspension 2 spray intranasal DAILY PRN (Reason: Allergy Symptoms) Qty: 16 11RF Rx Instructions: USE 2 SPRAYS INTO EACH NOSTRIL DAILY NEEDED FOR ALLERGY SYMPTOMS. carbidopa-levodopa 25-250 mg tablet 1 tab PO BID Qty: 60 5RF lamotrigine 25 mg tablet 50 mg PO HS duloxetine 30 mg capsule,delayed release(DR/EC) 30 mg PO QPM duloxetine 60 mg capsule,delayed release(DR/EC) 60 mg PO QAM gabapentin 300 mg capsule 300 mg PO TID methadone 10 mg tablet 20 mg PO TID Rx Instructions: TAKE WITH 5 MG = 25 MG TOTAL 3 times a day methadone 5 mg tablet 5 mg PO TID omeprazole 20 mg tablet,delayed release (DR/EC) 20 mg PO QAM cyanocobalamin (vitamin B-12) 1,000 mcg capsule 1,000 mcg PO QAM oxycodone 10 mg tablet 10 mg PO .EVERY 4-6 HOURS PRN (Reason: Breakthrough Pain) amlodipine 5 mg tablet 5 mg PO QAM Rx Instructions: take with the Amlodipine 2.5 mg to make daily dose of 7.5 mg. quetiapine 300 mg tablet 300 mg PO HS mirabegron [Myrbetriq] 25 mg tablet extended release 24 hr 25 mg PO QAM aspirin 81 mg tablet,delayed release (DR/EC) 81 mg PO QAM hydrochlorothiazide 12.5 mg capsule 12.5 mg PO QAM Rx Instructions: new order..has not started yet budesonide-formoterol [Symbicort] 160-4.5 mcg/actuation HFA aerosol inhaler 2 inh inhalation BID 30 Days Qty: 10.2 1RF Spiriva Respimat 2.5 mcg/actuation mist 2 inh inhalation DAILY 30 Days Qty: 4 1RF Referrals Referrals: Yelena Keita MD [Primary Care Provider] -
[2025-08-18 09:28] LABS: pH VBG 7.30 (7.36-7.41)
[2025-08-18 09:31] LABS: Base Excess VBG 3.2 mEq/L; HCO3 VBG 32 mmol/L; Oxygen Saturation VBG < 60.0 %; PCO2 VBG 66 mmHg (38-50); PO2 VBG 31 mmHg
[2025-08-18 09:33] LABS: Hematocrit (blood only) 35.4 % (37.0-47.0); Hemoglobin 11.1 g/dl (12.0-16.0); Mean Corpuscular Hemoglobin 29.1 pg (25.0-34.0); Mean Corpuscular Volume 92.7 fL (80.0-100.0); Platelet Count 261 K/uL (130-400); RDW Standard Deviation 53.4 fL (36.4-46.3); Red Blood Count 3.82 M/uL (4.20-5.40); White Blood Count 15.56 K/ul (4.8-10.8)
[2025-08-18 10:00] LABS: Immature Granulocytes # (auto) 0.05 K/uL (0.01-0.20); Immature Granulocytes % (auto) 0.3 %; Polychromasia 1+
[2025-08-18 10:01] LABS: Alanine Aminotransferase 15.0 U/L (7-52); Albumin Globulin Ratio 1.3 (0.9-2); Albumin Level 4.3 gm/dl (3.4-5.0); Alkaline Phosphatase 85.0 U/L (34-104); Anion Gap 12.0 (3-11); Bilirubin,Total 0.7 mg/dl (0.2-1.0); Blood Urea Nitrogen 44.0 mg/dl (6-23); Calcium 8.7 mg/dl (8.6-10.3); Carbon Dioxide 31.0 mmol/L (21-32); Chloride 92.0 mmol/L (98-107); Creatinine Clr Calc Pharmacy 36.5 ml/min; Globulin 3.4 gm/dl (2.5-4.0); Glucose 117.0 mg/dl (70-99(Fasting)); Magnesium 2.0 mg/dl (1.7-2.4); Potassium 3.8 mmol/L (3.5-5.1); Sodium 135.0 mmol/L (136-145); Total Protein 7.7 gm/dl (6.0-8.3)
[2025-08-18] MEDS: OPTIRAY 320 125ml IV ONE (10:09)
[2025-08-18 10:16] LABS: Thyroid Stimulating Hormone 1.656 uIu/ml (0.300-4.500)
[2025-08-18] MEDS ORDERED: VANCOMYCIN CONSULT ACTIVE PRN (10:25)
[2025-08-18] MEDS: SODIUM CHLORIDE 0.9% 500 ML IV ONE (10:26)
--- NOTE | 2025-08-18 10:29 | CT Scan Report ---
CT head/brain wo con CLINICAL HISTORY: fall, MURILLO, R weak. TECHNIQUE: Multiple axial CT images of the head were obtained without contrast. A dose lowering tech nique was utilized adhering to the principles of ALARA. COMPARISON: 06/28/2025 FINDINGS: No intracranial hemorrhage seen. No mass effect, midline shift, or hydrocephalus. No skull fracture seen. Visualized paranasal sinuses and mastoid air cells are clear. Stable small right parie to-occipital craniotomy. IMPRESSION: No acute findings. ACT 112: Negative or not required by law. The above report was generated using voice recognition software. It may contain grammatical, syntax o r spelling errors. Electronically signed by: Shoaib Bah M.D. 08/18/2025 10:27 AM
--- NOTE | 2025-08-18 10:38 | CT Scan Report ---
CT angio head w con CLINICAL HISTORY: 74 years-old Female with fall, MURILLO, R weak. Acute headache with right-sided weakn ess/stroke like symptoms COMPARISON STUDY: Head CT of same day and also 06/17/2025, CTA head 08/07/2018. TECHNIQUE: Following the IV administration of 112 cc of Optiray, CT angiogram of the brain was perfor med from the skull base to the vertex. Images are reviewed in the axial, sagittal, and coronal planes . 3-D MIPS images are created and assessed. IV contrast was administered without complication. All me asurements were obtained according to NASCET criteria. A dose lowering technique was utilized adherin g to the principles of ALARA. FINDINGS: Motion degraded exam. CT BRAIN: Dictated separately. Involutional changes with chronic microvascular ischemic disease. Right occipita l craniectomy changes are present. CT ANGIOGRAM OF THE BRAIN: The imaged bilateral internal carotid arteries are patent. The bilateral anterior and middle cerebral arteries are also patent. The vertebrobasilar system and posterior cerebral arteries are widely thapa nt. There is no aneurysm, high-grade stenosis, or proximal branch occlusion identified. Dural sinuses appear patent. Mild dilation of the superior ophthalmic veins, of doubtful clinical significance. IMPRESSION: Unremarkable CTA of the head. ACT 112: Negative or not required by law. The above report was generated using voice recognition software. It may contain grammatical, syntax o r spelling errors. Electronically signed by: Kervin Chaudhari M.D. 08/18/2025 10:36 AM
[2025-08-18 10:43] LABS: Chlamydia pneumoniae PCR Not Detected (NotDetected); Coronavirus 229E PCR Not Detected (NotDetected); Coronavirus CoV-2 (COVID19)PCR Not Detected (NotDetected); Coronavirus HKU1 PCR Not Detected (NotDetected); Coronavirus NL63 PCR Not Detected (NotDetected); Coronavirus OC43PCR Not Detected (NotDetected); Human Metapneumovirus PCR Not Detected (NotDetected); Parainfluenza Virus 1 PCR Not Detected (NotDetected); Parainfluenza Virus 2 PCR Not Detected (NotDetected); Parainfluenza Virus 3 PCR Not Detected (NotDetected); Parainfluenza Virus 4 PCR Not Detected (NotDetected); Respiratory Syncytial VirusPCR Not Detected (NotDetected); Rhinovirus/Enterovirus PCR Not Detected (NotDetected)
--- NOTE | 2025-08-18 10:56 | CT Scan Report ---
CT ANGIOGRAPHY OF THE NECK WITH CONTRAST CLINICAL HISTORY: Fall. Headache. Right-sided weakness. COMPARISON STUDY: Cervical spine CT June 28, 2025. Carotid ultrasound November 04, 2011. Technique: CT angiography of the carotid and vertebral arteries was obtained using Optiray and 3D rec onstruction on an independent workstation. NASCET criteria was utilized. Automated exposure control was utilized for the study. A dose lowering technique was utilized adhering to the principles of ALA RA. Findings: Visualized portions of the lung apices demonstrate scattered alveolar opacities within the right upper lobe, new since cervical spine CT of June 28, 2025. There is underlying emphysema. The findings are better depicted on the chest CT which will be reported separately. No acute cervical spi ne fractures are noted. Mild loss of height of the inferior endplate of C4 is unchanged. Mixed lucent and sclerotic appearance of the C4 vertebral body remains indeterminate. This is unchanged. The left vertebral artery is dominant. The right vertebral artery is somewhat diminutive on a congenital basi s. There is moderate atherosclerotic plaque within the proximal bilateral internal carotid arteries. This results in 50% stenosis of the proximal bilateral internal carotid arteries. IMPRESSION: 1. Moderate atherosclerotic plaque which results in 50% stenosis of the proximal bilateral internal c arotid arteries. 2. No aneurysm or dissection within the neck. 3. Right upper lobe alveolar opacities better depicted on the chest CT. These suggest pneumonia or as piration pneumonitis. ACT 112: Negative or not required by law. Electronically signed by: Daryl Keita M.D. 08/18/2025 10:54 AM
--- NOTE | 2025-08-18 11:03 | CT Scan Report ---
CT SCAN OF THE ABDOMEN AND PELVIS WITH IV CONTRAST CLINICAL HISTORY: Fall. Weakness. COMPARISON STUDY: CT of the abdomen and pelvis July 19, 2025. TECHNIQUE: Following the IV administration of 112 cc of Optiray 320, CT scan of the abdomen and pelv is is performed from the lung bases to the proximal femora. Images are reviewed in the axial, sagitta l, and coronal planes. IV contrast was administered without complication. A dose lowering technique w as utilized adhering to the principles of ALARA. CT DOSE: 1803.68 mGy.cm FINDINGS: Extensive bilateral lower lobe alveolar opacities have developed since CT of July 19 025. These are better depicted on the same day chest CT which will be reported separately. No hemoper itoneum or pneumoperitoneum is present. No evidence for traumatic injury to the solid abdominal visce ra. Mild dilatation of the common bile duct is unchanged. There are no hepatic lesions. There is hepa tic steatosis. Sensitivity for detection of renal calculi diminished given excreted contrast. There i s no evidence for a bowel obstruction. There is a moderate amount of stool within the colon. There is no lymphadenopathy. No fluid collections are present. Postoperative findings within the lumbosacral spine are again noted. There are no acute fractures within the lumbar spine, pelvis or hips. IMPRESSION: 1. No acute traumatic findings within the abdomen or pelvis. 2. Interval development of extensive bilateral lower lobe alveolar opacities since CT of July 19, 2025. The findings suggest pneumonia or aspiration pneumonitis, better depicted on the chest CT whic h will be reported separately. ACT 112: Negative or not required by law. Electronically signed by: Daryl Keita M.D. 08/18/2025 11:00 AM
[2025-08-18] MEDS: PIPERACILLIN/TAZOBACTAM 4.5 GM/100 ML BAG IV ONE (11:05)
--- NOTE | 2025-08-18 11:22 | CT Scan Report ---
CT angio chest PE protocol CT DOSE: 1443.02 mGy.cm HISTORY: hypoxic, fall, MURILLO, R weak. TECHNIQUE: Multiple CTA images of the chest were obtained after the intravenous administration of 112 ml Optiray. Coronal and sagittal MIPS were obtained from the axial data set and were submitted for review. All measurements were obtained according to NASCET criteria. A dose lowering technique was u tilized adhering to the principles of ALARA. COMPARISON STUDY: 07/19/2025 FINDINGS: There is motion artifact due to difficulty breath holding. There are mild airway secretions . There is interval scattered areas of patchy consolidation most prominent at the lung bases, consist ent with acute pneumonia. There is no pleural effusion or pneumothorax. Stable left hilar mass measur ing 3 cm. No pericardial effusion. There are diffuse coronary artery calcifications. No thoracic aort ic dissection or aneurysm seen. Evaluation of the tiny distal pulmonary arterial branches is limited by motion. No pulmonary embolism seen. There are moderate thoracic spine degenerative changes. No acu te osseous findings. IMPRESSION: 1. No pulmonary embolism seen. 2. Bilateral pneumonia. Recommend follow-up chest CT in 3 months to make sure this resolves without u nderlying pulmonary nodule. 3. Otherwise as described. ACT 112: Positive. There are findings on this exam that require communication between the performing entity and the patient following Patient Test Result Information Act ([place] Act 112) guidelines. The above report was generated using voice recognition software. It may contain grammatical, syntax o r spelling errors. Electronically signed by: Shoaib Bah M.D. 08/18/2025 11:21 AM
--- NOTE | 2025-08-18 11:25 | XRay Report ---
XR chest 1V portable CLINICAL HISTORY: weakness, fall COMPARISON STUDY: 06/28/2025 FINDINGS: Stable mild cardiomegaly with mild pulmonary vascular congestion. There are interval faint patchy opacities at the mid and lower lungs. No pleural effusion or pneumothorax. IMPRESSION: Early bilateral pneumonia. ACT 112: Negative or not required by law. Electronically signed by: Shoaib Bah M.D. 08/18/2025 11:24 AM
[2025-08-18] MEDS: VANCOMYCIN HCL 1,500 MG in SODIUM CHLORIDE 0.9% 500 ML IV ONE (11:50)
[2025-08-18 11:53] LABS: Base Excess VBG 4.0 mEq/L; HCO3 VBG 33 mmol/L; Oxygen Saturation VBG < 60.0 %; PCO2 VBG 66 mmHg (38-50); PO2 VBG 35 mmHg; pH VBG 7.30 (7.36-7.41)
[2025-08-18] MEDS: NALOXONE HCL 0.4 MG/1 ML VIAL/CARP IV STA (12:31)
[2025-08-18 12:33] LABS: iSTAT Art Bld Gas Base Excess 5.0 mmol/L (-9-1.8); iSTAT Art Bld Gas pCO2 Correct 63 mmHg (35-46); iSTAT Art Bld Gas pH Corrected 7.301 (7.35-7.45); iSTAT Arterial Blood Gas pO2 C 57
[2025-08-18] MEDS: LORazepam 1 MG/1 ML SYR ED Inj Use IV STA (12:54)
[2025-08-18] MEDS: LORazepam 1 MG/1 ML SYR ED Inj Use ONE (12:57)
--- NOTE | 2025-08-18 13:50 | History & Physical Report ---
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 #Acute respiratory respiratory failure with hypoxia and hypercapnia #COPD exacerbation #Multifocal pneumonia #Sepsis (tachycardia, leukocytosis, RR 38) - admit to ICU for closer monitoring - sweet potato disintegrator consult placed , sweet potato disintegrator aware - CTA chest showing no PE but showing b/l pneumonia - cont BiPAP - cont inhalers (breo, tiotropium) - solumedrol 40mg IV daily - s/p Vanc / Zosyn in the ED, cont at this time , add azithromycin (QTc: 447ms, monitor as pt is on methadone) - check MRSA - BCx pending - UA/UCx pending collection - Biofire negative - check Ur legionella antigen #Right sided weakness - CT head negative - unremarkable CTA head - CTA neck showing moderate atherosclerotic plaque with 50% stenosis of the proximal b/l internal carotid arteries, no aneurysm or dissection within the neck - monitor neuro checks - PT / OT eval #Acute metabolic encephalopathy - in the setting of hypoxia and hypercapnea as well as polypharmacy - IV hydration, hold PO meds at his time - monitor mental status #RIVKA - baseline Cr 0.6, on admission 1.6 - IV hydration with plasma lyte - avoid nephrotoxic agents and dose - trend Cr #HTN - hold BP meds at this time #Restless Leg Syndrome - of note: some hx states pt had Parkinson's disease, however, per neurology note from 01/13/21 pt never had Parkinson's diagnosis. Sinemet was Rx-ed for RLS - sinemet currently on hold as pt not able to take any PO #Metastatic Small Cell Neuroendocrine tumor - diagnosed 08/2019 with resection of skull lesion, also noted to have T-spine lesions, hip - s/p palliative RT to spine and hip Jun 2023 #Chronic musculoskeletal pain - on methadone and oxycodone along with gabapentin currently held due to lethargy #Anxiety / Depression - hold PO meds at this time #DVT ppx: hep subq #Dispo- admit to ICU #Code status: Full code (per pt) History of Present Illness Chief Complaint: right sided weakness Primary Care Provider: Yelena Keita MD 74 yr old F with PMHx of COPD, HTN, neuroendocrine tumor mets to bone, anxiety/depression, HLD, GERD, RLS brought to [facility] for the evaluation of right sided weakness. History obtained from chart and discussion with ED team as pt is currently a poor history. Pt reported earlier that she was trying to get up to go to the bathroom and noted that she has increased right sided weakness. She was brought in for evaluation of stroke. Stroke workup was negative, however, she was noted to have multifocal pneumonia and hospitalist consulted for admission. Pt was awake and alert on admission, however, she then became severely lethargic and unresponsive. She was placed on BiPAP for respiratory distress and Narcan given for lethargy. With Narcan, her mentation improved, however she is increasingly restless leading to receiving lorazepam. Allergies Allergy/AdvReac Type Severity Reaction Status Date / Time codeine Allergy Unknown itching Verified 06/22/25 07:34 Home Medications Medication Instructions Recorded Confirmed Type lamotrigine 25 mg tablet 50 mg PO HS 09/20/21 08/18/25 History duloxetine 60 mg capsule,delayed 60 mg PO QAM 04/24/23 08/18/25 History release duloxetine 30 mg capsule,delayed 30 mg PO QPM 09/08/23 08/18/25 History release gabapentin 300 mg capsule 300 mg PO TID 12/03/24 08/18/25 History methadone 10 mg tablet 20 mg PO TID 12/03/24 08/18/25 History methadone 5 mg tablet 5 mg PO TID 12/03/24 08/18/25 History omeprazole 20 mg tablet,delayed 20 mg PO QAM 12/03/24 08/18/25 History release cyanocobalamin (vitamin B-12) 1,000 mcg PO QAM 01/17/25 08/18/25 History 1,000 mcg capsule albuterol sulfate 90 mcg/actuation 2 puff inhalation Q6H PRN 03/15/25 08/18/25 Rx aerosol inhaler shortness of breath or wheezing #8.5 grams amlodipine 2.5 mg tablet 2.5 mg PO QAM #30 tabs 03/28/25 08/18/25 Rx amlodipine 5 mg tablet 5 mg PO QAM 06/28/25 08/18/25 History aspirin 81 mg tablet,delayed 81 mg PO QAM 06/28/25 08/18/25 History release hydrochlorothiazide 12.5 mg capsule 12.5 mg PO QAM 06/28/25 08/18/25 History mirabegron 25 mg tablet,extended 25 mg PO QAM 06/28/25 08/18/25 History release 24 hr (Myrbetriq) oxycodone 10 mg tablet 10 mg PO .EVERY 4-6 HOURS PRN 06/28/25 08/18/25 History Breakthrough Pain quetiapine 300 mg tablet 300 mg PO HS 06/28/25 08/18/25 History budesonide-formoterol HFA 160 2 inh inhalation BID 1 month #10.2 06/29/25 08/18/25 Rx mcg-4.5 mcg/actuation aerosol grams inhaler (Symbicort) tiotropium bromide 2.5 2 inh inhalation DAILY 1 month #4 06/29/25 08/18/25 Rx mcg/actuation mist for inhalation grams (Spiriva Respimat) fluticasone propionate 50 2 spray intranasal DAILY PRN 07/20/25 08/18/25 Rx mcg/actuation nasal Allergy Symptoms #16 grams spray,suspension carbidopa 25 mg-levodopa 250 mg 1 tab PO BID #60 tabs 07/29/25 08/18/25 Rx tablet Past Med/Surg History Problem List (Updated 08/18/25 @ 11:27 by Wild Agarwal M.D.) Chronic narcotic use (Acute) Weakness (Acute) Multifocal pneumonia (Acute) Non-ST elevation [place] (NSTEMI) (Acute) Acute exacerbation of chronic obstructive pulmonary disease (Acute) Respiratory failure with hypoxia and hypercapnia (Acute) Acute encephalopathy (Acute) 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 Skin lesion of right lower extremity Constipation Acute hypoxic respiratory failure (Acute) admitted [facility] 12/02-12/04/24; dx acute hypoxemic resp failure/COPD exacerbation Overactive bladder (Chronic) 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) Chronic headache (Acute) Neuroendocrine tumor (Chronic) Restless leg syndrome Status post craniectomy Hyperlipidemia (Acute) 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 Per records- CTA of head in Jul 2018 show no aneurysms - including basilar artery Allergic rhinitis (Acute) Generalized muscle weakness (Acute) Cervical spondylosis (Acute) Emphysema lung (Chronic) Mixed anxiety and depressive disorder (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) HTN (hypertension) (Chronic 01/06/15) GERD (gastroesophageal reflux disease) (Chronic) Spinal stenosis (Chronic) COPD (chronic obstructive pulmonary disease) (Chronic) Medical History Muscle weakness able to ambulate independently; when feeling weak uses motorized WC 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 bx 01/06/25; pathology nondiagnostic; per general surgery note 'likely SCC' Neuroendocrine tumor small cell neuroendocrine tumor; per heme/onc note 12/17/24, primarily located at posterior skull; s/p resection of lesions 2018 and 2020; also s/p chemo; developed spinal lesions and skeletal lesions which were tx with XRT; on palliative care currently Spinal stenosis RLS (restless legs syndrome) taking carbidopa/levodopa OAB (overactive bladder) Mixed anxiety and depressive disorder Hx of hyperlipidemia History of hypertension Hx of gastroesophageal reflux (GERD) no recent issues Emphysema lung COPD (chronic obstructive pulmonary disease) admitted [facility] 12/02-12/04/24; dx acute hypoxemic resp failure/COPD exacerbation Chronic headache hx, only prior to brain surgery, no recent issues Cervical spondylosis no limits w/ ROM Aneurysm of basilar artery hx 15 years ago Per records- CTA of head in Jul 2018 show no aneurysms - including basilar artery Hx of acute respiratory failure admitted [facility] 12/02-12/04/24; dx acute hypoxemic respiratory failure/COPD exacerbation History of cancer of vulva dx "many years ago," S/p vulvectomy H. pylori infection hx Stomach ulcer hx, no recent issues Surgical History History of surgery (02/15/25) Right Lower Extremity Wide Local Excision of Squamous Cell Carcinoma, intermediate layered closure (Right) - Chi Mathew DO History of open reduction and internal fixation (ORIF) procedure right foot > hardware intact Hx of colonoscopy (2018) Status post right knee replacement S/P excision of lipoma History of spinal surgery LUMBAR FUSION H/O brain surgery 2 tumor removals: 2019 and 03/29/21: Resection of Occipital Subgaleal Lesion Dr. Curt Wen at [facility] H/O exploratory laparotomy (2019) History of anesthesia reaction PT STATES THAT SHE WOKE UP TWICE DURING PREVIOUS COLONOSCOPY AND WAS ADVISED TO ALERT STAFF OF THIS FOR FUTURE PROCEDURES. History of surgery REMOVAL OF RIGHT LABIA FOLLOWING DX OF VULVA CANCER Family History Mother , Passed Age 90's due to stroke Depression Hypertension Anxiety Stroke Sister Depression Hypertension Cerebral aneurysm Anxiety Father , in his mid to later 40s of an [place] Hypertension Myocardial infarction Cardiac disorder Anxiety Lymphoma Cancer Other Family history non-contributory Has no children Denies family history of Ovarian cancer Prostate cancer Breast cancer Colorectal cancer Social History Smoking Status: Never smoker Tobacco Type: Cigarettes Age Started Using Tobacco: 20; Age Quit Using Tobacco: 20; packs per day: 0.25; Second Hand Exposure: No; Do You Dip or Chew Tobacco: No; Hx Alcohol Use: No Hx Substance Use: No Preferred Language: Korean Communication Ability: Effective Visual Impairment: No Limitations Hearing Ability: Hard of Hearing Manager Social Responsibility Required: No Beliefs That Will Affect Care: None marital status: / Current Living Situation: Personal Care Facility Current Living Situation Comment: Home with caregivers per patient current occupational status: disabled 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 [employer] How many Children do You have: 0 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) 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 Safe at Home: Yes Childhood Exposure to Second-Hand Smoke: Yes Diet: regular caffeine: Yes (half a cup of coffee daily) during the past year weight has: decreased > 10 lbs Dental Care, Regularly: Yes Physical Activity Frequency: Does not Exercise Seatbelt Use: always Sunscreen Use: No Assistive Devices: Cane, Lift Chair, Walker and Wheelchair Results & Data Results & Data Vital Signs (Past 12 Hours) Vital Signs Pulse Pulse Resp BP BP Pulse Ox O2 Del Method 08/18/25 13:11 117 H 08/18/25 12:35 114 H 38 H 94 BiPAP 08/18/25 12:30 114 H 42 H 117/71 94 BiPAP 08/18/25 12:25 BiPAP 10/02/25 12:00 96 H 128/90 89 L Nasal Cannula 08/18/25 10:29 96 H 20 152/81 H 95 Nasal Cannula 08/18/25 09:02 92 H 08/18/25 09:00 83 L Nasal Cannula 08/18/25 09:00 90 18 117/81 92 Nasal Cannula 08/18/25 09:00 90 18 92 Nasal Cannula 08/18/25 09:00 90 18 117/81 92 Nasal Cannula O2 Flow Rate 08/18/25 13:11 08/18/25 12:35 08/18/25 12:30 08/18/25 12:25 08/18/25 12:00 5 08/18/25 10:29 5 08/18/25 09:02 08/18/25 09:00 0 08/18/25 09:00 2 08/18/25 09:00 2 08/18/25 09:00 2 PG Care Time/CCT Total # of Minutes Spent Total Time Spent with Patient: Total time spent is greater than 50% in coordination of care (as documented) at patient's floor/unit and/or counseling patient: Coding Level of Care Code 33699 INT INP/OBS CARE 3/75MIN Diagnoses Acute exacerbation of chronic obstructive pulmonary disease J44.1 Acute encephalopathy G93.40 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
[2025-08-18] MEDS ORDERED: ALBUTEROL 0.083% NEBU SOLN 3 ML VIAL NEB PRN (14:26)
[2025-08-18] MEDS ORDERED: AZITHROMYCIN 500 MG/255 ML BAG IV ONE (14:30)
[2025-08-18] MEDS: PLASMA-LYTE A 1,000 ML IV SCH (15:16)
--- NOTE | 2025-08-18 16:01 | Critical Care Consultation ---
Date of Consultation August 18, 2025 Assessment & Plan (1) Multifocal pneumonia: (2) Respiratory failure with hypoxia and hypercapnia: Plan Impression: 74-year-old female with metastatic neuroendocrine small cell cancer admitted with hypoxemic hypercarbic respiratory failure likely secondary to polypharmacy as well as multifocal pneumonia, likely aspiration. She is admitted to the ICU for monitoring on noninvasive positive pressure ventilation. Recommendations: 1. Multifocal pneumonia: The patient has been initiated on Zosyn and azithromycin. Given her debilitated state and recent hospitalization this appears appropriate. If her MRSA of the nares is negative vancomycin can likely be discontinued. Depending on clinical response, may be able to de-escalate antibiotics within the next 24 hours. Trend white blood cell count and follow fever curve. Repeat procalcitonin in a.m. recommend speech therapy evaluation and possible swallow evaluation once mental status permits 2. Hypoxemic hypercarbic respiratory failure: Secondary to #1 as well as chronic respiratory suppressant medications. Will avoid these medications in the future. Will need to address pain management strategy in a way that does not compromise her respiratory status. Okay to use noninvasive positive pressure ventilation as needed. Would not try and target oxygen saturations much above 89% to prevent worsening of hypercarbia. 3. Renal insufficiency: The patient's baseline creatinine appears to be about 0.5. She presented today with a creatinine of 1.43. Acid-base status demonstrates respiratory acidosis. Electrolytes are acceptable. May need replacement of calcium. 4. Mild anemia: Not far off from baseline. No evidence of acute blood loss. No indication for transfusion currently. Continue to follow. Will continue to follow in the ICU overnight. Hopefully she clinically improves and will be able to wean to a stable state in which case she can be downgraded to the floor. Feel free to contact us with questions or concerns History of Present Illness History of Present Illness Asked by hospitalist to assist in evaluation management this patient with hypercarbic respiratory failure and altered mental status. History is obtained from discussion with the patient as well as review of electronic medical record. Patient is a 74-year-old female who was hospitalized back in June with hypoxemic hypercarbic respiratory failure likely due to fluid polypharmacy who presented to the emergency room today with complaints of right arm pain and weakness. Patient presented today with strokelike symptoms. Stroke evaluation was unrevealing however chest x-ray demonstrated multifocal airspace opacities concerning for pneumonia. She was treated with antibiotics. Initial blood gas showed hypercarbic respiratory failure. She received a dose of Narcan in the emergency room and had improvement in mental status however over time her mental status deteriorated and noninvasive positive pressure ventilation was reapplied which prompted admission to the intensive care unit. I assessed the patient on arrival to the ICU. She is awake alert and conversant. She states she does not use noninvasive positive pressure ventilation at home. She denies any respiratory difficulties. When BiPAP was removed she did have oxygen desaturations. Unclear whether the patient has a history of aspiration. Allergies Allergy/AdvReac Type Severity Reaction Status Date / Time codeine Allergy Unknown itching Verified 06/22/25 07:34 Home Medications Medication Instructions Recorded Confirmed Type lamotrigine 25 mg tablet 50 mg PO HS 09/20/21 08/18/25 History duloxetine 60 mg capsule,delayed 60 mg PO QAM 04/24/23 08/18/25 History release duloxetine 30 mg capsule,delayed 30 mg PO QPM 09/08/23 08/18/25 History release gabapentin 300 mg capsule 300 mg PO TID 12/03/24 08/18/25 History methadone 10 mg tablet 20 mg PO TID 12/03/24 08/18/25 History methadone 5 mg tablet 5 mg PO TID 12/03/24 08/18/25 History omeprazole 20 mg tablet,delayed 20 mg PO QAM 12/03/24 08/18/25 History release cyanocobalamin (vitamin B-12) 1,000 mcg PO QAM 01/17/25 08/18/25 History 1,000 mcg capsule albuterol sulfate 90 mcg/actuation 2 puff inhalation Q6H PRN 03/15/25 08/18/25 Rx aerosol inhaler shortness of breath or wheezing #8.5 grams amlodipine 2.5 mg tablet 2.5 mg PO QAM #30 tabs 03/28/25 08/18/25 Rx amlodipine 5 mg tablet 5 mg PO QAM 06/28/25 08/18/25 History aspirin 81 mg tablet,delayed 81 mg PO QAM 06/28/25 08/18/25 History release hydrochlorothiazide 12.5 mg capsule 12.5 mg PO QAM 06/28/25 08/18/25 History mirabegron 25 mg tablet,extended 25 mg PO QAM 06/28/25 08/18/25 History release 24 hr (Myrbetriq) oxycodone 10 mg tablet 10 mg PO .EVERY 4-6 HOURS PRN 06/28/25 08/18/25 History Breakthrough Pain quetiapine 300 mg tablet 300 mg PO HS 06/28/25 08/18/25 History budesonide-formoterol HFA 160 2 inh inhalation BID 1 month #10.2 06/29/25 08/18/25 Rx mcg-4.5 mcg/actuation aerosol grams inhaler (Symbicort) tiotropium bromide 2.5 2 inh inhalation DAILY 1 month #4 06/29/25 08/18/25 Rx mcg/actuation mist for inhalation grams (Spiriva Respimat) fluticasone propionate 50 2 spray intranasal DAILY PRN 07/20/25 08/18/25 Rx mcg/actuation nasal Allergy Symptoms #16 grams spray,suspension carbidopa 25 mg-levodopa 250 mg 1 tab PO BID #60 tabs 07/29/25 08/18/25 Rx tablet Patient History Medical History Muscle weakness able to ambulate independently; when feeling weak uses motorized WC 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 bx 01/06/25; pathology nondiagnostic; per general surgery note 'likely SCC' Neuroendocrine tumor small cell neuroendocrine tumor; per heme/onc note 12/17/24, primarily located at posterior skull; s/p resection of lesions 2018 and 2020; also s/p chemo; developed spinal lesions and skeletal lesions which were tx with XRT; on palliative care currently Spinal stenosis RLS (restless legs syndrome) taking carbidopa/levodopa OAB (overactive bladder) Mixed anxiety and depressive disorder Hx of hyperlipidemia History of hypertension Hx of gastroesophageal reflux (GERD) no recent issues Emphysema lung COPD (chronic obstructive pulmonary disease) admitted [facility] 12/02-12/04/24; dx acute hypoxemic resp failure/COPD exacerbation Chronic headache hx, only prior to brain surgery, no recent issues Cervical spondylosis no limits w/ ROM 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 pylori infection hx Stomach ulcer hx, no recent issues Surgical History History of surgery (02/15/25) Right Lower Extremity Wide Local Excision of Squamous Cell Carcinoma, intermediate layered closure (Right) - Chi Mathew DO History of open reduction and internal fixation (ORIF) procedure right foot > hardware intact Hx of colonoscopy (2018) Status post right knee replacement S/P excision of lipoma History of spinal surgery LUMBAR FUSION H/O brain surgery 2 tumor removals: 2018 and 03/29/21: Resection of Occipital Subgaleal Lesion Dr. Curt Wen at [facility] H/O exploratory laparotomy (2019) History of anesthesia reaction PT STATES THAT SHE WOKE UP TWICE DURING PREVIOUS COLONOSCOPY AND WAS ADVISED TO ALERT STAFF OF THIS FOR FUTURE PROCEDURES. History of surgery REMOVAL OF RIGHT LABIA FOLLOWING DX OF VULVA CANCER Family History Mother , Passed Age 90's due to stroke Depression Hypertension Anxiety Stroke Sister Depression Hypertension Cerebral aneurysm Anxiety Father , in his mid to later 40s of an CO Hypertension Myocardial infarction Cardiac disorder Anxiety Lymphoma Cancer Other Family history non-contributory Has no children Denies family history of Ovarian cancer Prostate cancer Breast cancer Colorectal cancer Social History Smoking Status: Never smoker Tobacco Type: Cigarettes Age Started Using Tobacco: 20; Age Quit Using Tobacco: 20; packs per day: 0.25; Second Hand Exposure: No; Do You Dip or Chew Tobacco: No; Hx Alcohol Use: No Hx Substance Use: No Preferred Language: [place] Communication Ability: Effective Visual Impairment: No Limitations Hearing Ability: Hard of Hearing Adult High School Instructor Required: No Beliefs That Will Affect Care: None marital status: / Current Living Situation: Personal Care Facility Current Living Situation Comment: Home with caregivers per patient current occupational status: disabled 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 [employer] How many Children do You have: 0 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) 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 Safe at Home: Yes Childhood Exposure to Second-Hand Smoke: Yes Diet: regular caffeine: Yes (half a cup of coffee daily) during the past year weight has: decreased > 10 lbs Dental Care, Regularly: Yes Physical Activity Frequency: Does not Exercise Seatbelt Use: always Sunscreen Use: No Assistive Devices: Cane, Lift Chair, Walker and Wheelchair Review of Systems Review of Systems: Please refer to admission H&P Physical Exam Constitutional: WD/WN, vitals as above no acute distress Respiratory: normal respiratory effort, lungs clear to auscultation Cardiovascular: Rate/Rhythm: regular rate and regular rhythm Extremities: + edema (+1 bilat LE's) Skin: no rashes, warm and dry Neurologic: moves all extremities Psychiatric: A+Ox3, euthymic affect Results & Data Results & Data Vital Signs (Past 12 Hours) Vital Signs Pulse Pulse Resp BP BP Pulse Ox O2 Del Method 08/18/25 14:57 96 H 16 96 08/18/25 14:34 97 H 23 149/86 H 99 BiPAP 08/18/25 13:11 117 H 08/18/25 12:35 114 H 38 H 94 BiPAP 08/18/25 12:30 114 H 42 H 117/71 94 BiPAP 08/18/25 12:25 BiPAP 08/18/25 12:19 94 H 19 96 08/18/25 12:00 96 H 128/90 89 L Nasal Cannula 08/18/25 10:29 96 H 20 152/81 H 95 Nasal Cannula 08/18/25 09:02 92 H 08/18/25 09:00 83 L Nasal Cannula 08/18/25 09:00 90 18 117/81 92 Nasal Cannula 08/18/25 09:00 90 18 92 Nasal Cannula 08/18/25 09:00 90 18 117/81 92 Nasal Cannula O2 Flow Rate FiO2 08/18/25 14:57 30 08/18/25 14:34 08/18/25 13:11 08/18/25 12:35 08/18/25 12:30 08/18/25 12:25 08/18/25 12:19 40 08/18/25 12:00 5 08/18/25 10:29 5 08/18/25 09:02 08/18/25 09:00 0 08/18/25 09:00 2 08/18/25 09:00 2 08/18/25 09:00 2 Critical Care Results & Data Vital Signs (Past 12 Hours) Vital Signs Pulse Pulse Resp BP BP Pulse Ox O2 Del Method 08/18/25 14:57 96 H 16 96 08/18/25 14:34 97 H 23 149/86 H 99 BiPAP 08/18/25 13:11 117 H 08/18/25 12:35 114 H 38 H 94 BiPAP 08/18/25 12:30 114 H 42 H 117/71 94 BiPAP 08/18/25 12:25 BiPAP 08/18/25 12:19 94 H 19 96 08/18/25 12:00 96 H 128/90 89 L Nasal Cannula 08/18/25 10:29 96 H 20 152/81 H 95 Nasal Cannula 08/18/25 09:02 92 H 08/18/25 09:00 83 L Nasal Cannula 08/18/25 09:00 90 18 117/81 92 Nasal Cannula 08/18/25 09:00 90 18 92 Nasal Cannula 08/18/25 09:00 90 18 117/81 92 Nasal Cannula O2 Flow Rate FiO2 08/18/25 14:57 30 08/18/25 14:34 08/18/25 13:11 08/18/25 12:35 08/18/25 12:30 08/18/25 12:25 08/18/25 12:19 40 08/18/25 12:00 5 08/18/25 10:29 5 08/18/25 09:02 08/18/25 09:00 0 08/18/25 09:00 2 08/18/25 09:00 2 08/18/25 09:00 2 Lab & Micro Results (Past 24 Hours) RBC 3.82 M/uL (4.20-5.40) L 08/18/25 WBC 15.56 K/ul (4.8-10.8) H 08/18/25 Hgb 11.1 g/dl (12.0-16.0) L 08/18/25 Hct 35.4 % (37.0-47.0) L 08/18/25 MCV 92.7 fL (80.0-100.0) 08/18/25 MCH 29.1 pg (25.0-34.0) 08/18/25 MCHC 31.4 g/dL (32.0-36.0) L 08/18/25 RDW Standard Deviation 53.4 fL (36.4-46.3) H 08/18/25 RDW Coefficient of Variation 16.0 % (11.5-14.5) H 08/18/25 Plt Count 261 K/uL (130-400) 08/18/25 MPV 9.6 fL (9.4-12.4) 08/18/25 Nucleated Red Blood Cells % (auto) 0.1 % 08/18 Nucleated RBC Absolute Count (auto) 0.02 K/uL (0.00-0.12) 1 Neutrophils (%) (Auto) 93.9 % 08/18/25 Lymphocytes (%) (Auto) 1.6 % 08/18/25 Monocytes # (Auto) 0.60 K/uL (0.11-0.59) H 08/18/25 Eosinophils # (Auto) 0.00 K/uL (0.00-0.50) 08/18/25 Immature Granulocyte % (Auto) 0.3 % 08/18/25 Neutrophils # (Auto) 14.62 K/uL (1.40-6.50) H 08/18/25 Lymphocytes # (Auto) 0.25 K/uL (1.20-3.40) L 08/18/25 Monocytes # (Auto) 0.60 K/uL (0.11-0.59) H 08/18/25 Eosinophils # (Auto) 0.00 K/uL (0.00-0.50) 08/18/25 Basophils # (Auto) 0.04 K/uL (0.00-0.20) 08/18/25 Immature Granulocyte # (Auto) 0.05 K/uL (0.01-0.20) 5 Polychromasia 1+ 08/18/25 Na 135 mmol/L (136-145) L 08/18/25 K 3.8 mmol/L (3.5-5.1) 08/18/25 Cl 92 mmol/L (98-107) L 08/18/25 CO2 31 mmol/L (21-32) 08/18/25 Anion Gap 12 (3-11) H 08/18/25 BUN 44 mg/dl (6-23) H 08/18/25 Creatinine 1.43 mg/dl (0.6-1.2) H 08/18/25 BUN/Creatinine Ratio 30.8 (10-20) H 08/18/25 Glu 117 mg/dl (70-99(Fasting)) H 08/18/25 Ca 8.7 mg/dl (8.6-10.3) 08/18/25 Total Bilirubin 0.7 mg/dl (0.2-1.0) 08/18/25 AST 54 U/L (13-39) H 08/18/25 ALT 15 U/L (7-52) 08/18/25 Alkaline Phosphatase 85 U/L (34-104) 08/18/25 TP 7.7 gm/dl (6.0-8.3) 08/18/25 Albumin 4.3 gm/dl (3.4-5.0) 08/18/25 Globulin 3.4 gm/dl (2.5-4.0) 08/18/25 Albumin/Globulin Ratio 1.3 (0.9-2) 08/18/25 Mg 2.0 mg/dl (1.7-2.4) 08/18/25 09:05 Calcium Level 8.7 mg/dl (8.6-10.3) 08/18/25 09:05 Venous Blood pH 7.30 (7.36-7.41) L 08/18/25 11:45 Venous Blood Partial Pressure CO2 66 mmHg (38-50) H 08/18/25 11 :45 Venous Blood Partial Pressure O2 35 mmHg 08/18/25 11:45 Venous Blood HCO3 33 mmol/L 08/18/25 11:45 Venous Blood Base Excess 4.0 mEq/L 08/18/25 11:45 Venous Blood Oxygen Saturation < 60.0 % 08/18/25 11:45 Miguelito Test Pass 08/18/25 12:15 Diagnostic Findings (Past 24 Hours) Abdomen/Pelvis CT 08/18/25 09:00 CT SCAN OF THE ABDOMEN AND PELVIS WITH IV CONTRAST CLINICAL HISTORY: Fall. Weakness. COMPARISON STUDY: CT of the abdomen and pelvis July 19, 2025. TECHNIQUE: Following the IV administration of 112 cc of Optiray 320, CT scan of the abdomen and pelvis is performed from the lung bases to the proximal femora. Images are reviewed in the axial, sagittal, and coronal planes. IV contrast was administered without complication. A dose lowering technique was utilized adhering to the principles of ALARA. CT DOSE: 1803.68 mGy.cm FINDINGS: Extensive bilateral lower lobe alveolar opacities have developed since CT of July 19, 2025. These are better depicted on the same day chest CT which will be reported separately. No hemoperitoneum or pneumoperitoneum is present. No evidence for traumatic injury to the solid abdominal viscera. Mild dilatation of the common bile duct is unchanged. There are no hepatic lesions. There is hepatic steatosis. Sensitivity for detection of renal calculi diminished given excreted contrast. There is no evidence for a bowel obstruction. There is a moderate amount of stool within the colon. There is no lymphadenopathy. No fluid collections are present. Postoperative findings within the lumbosacral spine are again noted. There are no acute fractures within the lumbar spine, pelvis or hips. IMPRESSION: 1. No acute traumatic findings within the abdomen or pelvis. 2. Interval development of extensive bilateral lower lobe alveolar opacities since CT of July 19, 2025. The findings suggest pneumonia or aspiration pneumonitis, better depicted on the chest CT which will be reported separately. ACT 112: Negative or not required by law. Electronically signed by: Daryl Keita M.D. 08/18/2025 11:00 AM Chest CTA 08/18/25 09:00 CT angio chest PE protocol CT DOSE: 1443.02 mGy.cm HISTORY: hypoxic, fall, MURILLO, R weak. TECHNIQUE: Multiple CTA images of the chest were obtained after the intravenous administration of 112 ml Optiray. Coronal and sagittal MIPS were obtained from the axial data set and were submitted for review. All measurements were obtained according to NASCET criteria. A dose lowering technique was utilized adhering to the principles of ALARA. COMPARISON STUDY: 07/19/2025 FINDINGS: There is motion artifact due to difficulty breath holding. There are mild airway secretions. There is interval scattered areas of patchy consolidation most prominent at the lung bases, consistent with acute pneumonia. There is no pleural effusion or pneumothorax. Stable left hilar mass measuring 3 cm. No pericardial effusion. There are diffuse coronary artery calcifications. No thoracic aortic dissection or aneurysm seen. Evaluation of the tiny distal pulmonary arterial branches is limited by motion. No pulmonary embolism seen. There are moderate thoracic spine degenerative changes. No acute osseous findings. IMPRESSION: 1. No pulmonary embolism seen. 2. Bilateral pneumonia. Recommend follow-up chest CT in 3 months to make sure this resolves without underlying pulmonary nodule. 3. Otherwise as described. ACT 112: Positive. There are findings on this exam that require communication between the performing entity and the patient following Patient Test Result Information Act ([place] Act 112) guidelines. The above report was generated using voice recognition software. It may contain grammatical, syntax or spelling errors. Electronically signed by: Shoaib Bah M.D. 08/18/2025 11:21 AM Chest X-Ray 08/18/25 09:00 XR chest 1V portable CLINICAL HISTORY: weakness, fall COMPARISON STUDY: 06/28/2025 FINDINGS: Stable mild cardiomegaly with mild pulmonary vascular congestion. There are interval faint patchy opacities at the mid and lower lungs. No pleural effusion or pneumothorax. IMPRESSION: Early bilateral pneumonia. ACT 112: Negative or not required by law. Electronically signed by: Shoaib Bah M.D. 08/18/2025 11:[address] 08/18/25 09:00 CT head/brain wo con CLINICAL HISTORY: fall, MURILLO, R weak. TECHNIQUE: Multiple axial CT images of the head were obtained without contrast. A dose lowering technique was utilized adhering to the principles of ALARA. COMPARISON: 06/28/2025 FINDINGS: No intracranial hemorrhage seen. No mass effect, midline shift, or hydrocephalus. No skull fracture seen. Visualized paranasal sinuses and mastoid air cells are clear. Stable small right parieto-occipital craniotomy. IMPRESSION: No acute findings. ACT 112: Negative or not required by law. The above report was generated using voice recognition software. It may contain grammatical, syntax or spelling errors. Electronically signed by: Shoaib Bah M.D. 08/18/2025 10:27 AM Head CTA 08/18/25 09:00 CT angio head w con CLINICAL HISTORY: 74 years-old Female with fall, MURILLO, R weak. Acute headache with right-sided weakness/stroke like symptoms COMPARISON STUDY: Head CT of same day and also 06/17/2025, CTA head 08/07/2018. TECHNIQUE: Following the IV administration of 112 cc of Optiray, CT angiogram of the brain was performed from the skull base to the vertex. Images are reviewed in the axial, sagittal, and coronal planes. 3-D MIPS images are created and assessed. IV contrast was administered without complication. All measurements were obtained according to NASCET criteria. A dose lowering technique was utilized adhering to the principles of ALARA. FINDINGS: Motion degraded exam. CT BRAIN: Dictated separately. Involutional changes with chronic microvascular ischemic disease. Right occipital craniectomy changes are present. CT ANGIOGRAM OF THE BRAIN: The imaged bilateral internal carotid arteries are patent. The bilateral anterior and middle cerebral arteries are also patent. The vertebrobasilar system and posterior cerebral arteries are widely patent. There is no aneurysm, high-grade stenosis, or proximal branch occlusion identified. Dural sinuses appear patent. Mild dilation of the superior ophthalmic veins, of doubtful clinical significance. IMPRESSION: Unremarkable CTA of the head. ACT 112: Negative or not required by law. The above report was generated using voice recognition software. It may contain grammatical, syntax or spelling errors. Electronically signed by: Kervin Chaudhari M.D. 08/18/2025 10:36 AM Neck CTA 08/18/25 09:00 CT ANGIOGRAPHY OF THE NECK WITH CONTRAST CLINICAL HISTORY: Fall. Headache. Right-sided weakness. COMPARISON STUDY: Cervical spine CT June 28, 2025. Carotid ultrasound November 04, 2011. Technique: CT angiography of the carotid and vertebral arteries was obtained using Optiray and 3D reconstruction on an independent workstation. NASCET criteria was utilized. Automated exposure control was utilized for the study. A dose lowering technique was utilized adhering to the principles of ALARA. Findings: Visualized portions of the lung apices demonstrate scattered alveolar opacities within the right upper lobe, new since cervical spine CT of June 28, 2025. There is underlying emphysema. The findings are better depicted on the chest CT which will be reported separately. No acute cervical spine fractures are noted. Mild loss of height of the inferior endplate of C4 is unchanged. Mixed lucent and sclerotic appearance of the C4 vertebral body remains indeterminate. This is unchanged. The left vertebral artery is dominant. The right vertebral artery is somewhat diminutive on a congenital basis. There is moderate atherosclerotic plaque within the proximal bilateral internal carotid arteries. This results in 50% stenosis of the proximal bilateral internal carotid arteries. IMPRESSION: 1. Moderate atherosclerotic plaque which results in 50% stenosis of the proximal bilateral internal carotid arteries. 2. No aneurysm or dissection within the neck. 3. Right upper lobe alveolar opacities better depicted on the chest CT. These suggest pneumonia or aspiration pneumonitis. ACT 112: Negative or not required by law. Electronically signed by: Daryl Keita M.D. 08/18/2025 10:54 AM I & O Totals 24 Hours 08/17/25 08/18/25 08/19/25 06:59 06:59 06:59 Intake Total 600 / 600 Balance 600 / 600 Cumulative 08/18/25 08:42 thru 08/18/25 11:45 Intake Total 600 Balance 600 RT Ventilator Mngmt (Last Documented) Ventilator Ordered Settings Respiratory Rate 16 08/18/25 14:57 Fraction of Inspired Oxygen 30 08/18/25 14:57 Ventilator - PT Measurements Respiratory Rate 16 Coding Level of Care Code 68365 INT INP/OBS CARE 2/55MIN Diagnoses Multifocal pneumonia J18.8 Respiratory failure with hypoxia and hypercapnia J96.91; J96.92
[2025-08-18] MEDS ORDERED: ONDANSETRON INJ 2 MG/ML 2 ML VIAL IV PRN (16:19)
[2025-08-18] MEDS: PIPERACILLIN/TAZOBACTAM 4.5 GM/100 ML BAG IV SCH (16:37)
[2025-08-18] MEDS: AZITHROMYCIN 500 MG/255 ML BAG IV ONE (16:38)
--- NOTE | 2025-08-18 16:54 | Pharmacy Report ---
Pharmacy PK ABX Note - Date of Service August 18, 2025 - Assessment and Plan Assessment 74 year old F receiving azithromycin, piperacillin/tazobactam, and vancomycin for treatment of empiric sepsis coverage/multifocal pneumonia. Pertinent microbiologic data includes: MRSA Nasal Swab pending, blood cultures x2 pending. * Presents with weakness s/p fall; vomiting, incontinence on arrival * WBC 15.56 * Actively receiving chemotherapy Day # 1 of antimicrobial therapy. Plan Vancomycin * Loading dose: 1500 mg IV x 1 (given 08/18 around 1200) * Given SCr of 1.43 mg/dL (baseline around 0.5 mg/dL) - will dose vancomycin by level until renal function stabilizes * Random level ordered for: 08/19/25 @0444 Pharmacy will continue to follow and will adjust dose/frequency as necessary. Thank you. Pharmacy has transitioned to AUC monitoring for vancomycin. AUC/KINGSLEY is the preferred PK/PD target and is associated with decreased risk of nephrotoxicity compared to traditional trough targets.
[2025-08-18 17:33] LABS: Appearance Urine Clear (Clear); Bacteria Urine Automated None Seen (None Seen); Epithelial Cell Urine Auto 0-2 /hpf (0-2); Glucose Urine UA Negative (Negative); RBC Urine Automated 0-2 /hpf (0-2); WBC Urine Automated 0-5 /hpf (0-5)
--- NOTE | 2025-08-18 18:13 | Electrocardiogram Report ---
Test Reason : Blood Pressure : */* mmHG Vent. Rate : 92 BPM Atrial Rate : 92 BPM P-R Int : 148 ms QRS Dur : 86 ms QT Int : 362 ms P-R-T Axes : 55 3 62 degrees QTcB Int : 447 ms Normal sinus rhythm When compared with ECG of 28-Jun-2025 15:55, Premature supraventricular complexes are no longer Present Confirmed by Michael Umanzor ([id number]) on 08/18/2025 6:13:38 PM Referred By: Confirmed By: Michael Umanzor
[2025-08-18] MEDS: METHADONE HCL 5 MG TAB PO SCH (21:09)
[2025-08-18] MEDS: HEPARIN SOD 5,000 UNIT/0.5 ML VIAL SQ SCH (21:13)
[2025-08-19 05:00] LABS: Hematocrit (blood only) 29.7 % (37.0-47.0); Hemoglobin 8.8 g/dl (12.0-16.0); Mean Corpuscular Hemoglobin 28.0 pg (25.0-34.0); Mean Corpuscular Volume 94.6 fL (80.0-100.0); Platelet Count 194 K/uL (130-400); RDW Standard Deviation 55.2 fL (36.4-46.3); Red Blood Count 3.14 M/uL (4.20-5.40); White Blood Count 10.55 K/ul (4.8-10.8)
[2025-08-19 05:52] LABS: Anion Gap 6.0 (3-11); Blood Urea Nitrogen 24.0 mg/dl (6-23); Calcium 8.1 mg/dl (8.6-10.3); Carbon Dioxide 35.0 mmol/L (21-32); Chloride 98.0 mmol/L (98-107); Creatinine Clr Calc Pharmacy 75.4 ml/min; Glucose 135.0 mg/dl (70-99(Fasting)); Immature Granulocytes # (auto) 0.10 K/uL (0.01-0.20); Immature Granulocytes % (auto) 0.9 %; Magnesium 2.2 mg/dl (1.7-2.4); Potassium 3.8 mmol/L (3.5-5.1); Sodium 139.0 mmol/L (136-145)
--- NOTE | 2025-08-19 07:39 | Hospitalist Progress Note ---
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 #Acute respiratory respiratory failure with hypoxia and hypercapnia #COPD exacerbation #Multifocal pneumonia #Sepsis (tachycardia, leukocytosis, RR 38) - admit to ICU for closer monitoring - iron pourer consult placed , iron pourer aware - CTA chest showing no PE but showing b/l pneumonia - cont BiPAP - cont inhalers (breo, tiotropium) - solumedrol 40mg IV daily - s/p Vanc / Zosyn in the ED, cont at this time , add azithromycin (QTc: 447ms, monitor as pt is on methadone) - check MRSA - BCx pending - UA/UCx pending collection - Biofire negative - check Ur legionella antigen #Right sided weakness - overall resolved but has right wrist drop - CT head negative - unremarkable CTA head - CTA neck showing moderate atherosclerotic plaque with 50% stenosis of the proximal b/l internal carotid arteries, no aneurysm or dissection within the neck - monitor neuro checks - PT / OT eval - check MRI brain, C-spine, T-spine (palliative discussed with outpatient xrt provider and recommended MRI) #Acute metabolic encephalopathy - in the setting of hypoxia and hypercapnia as well as polypharmacy - IV hydration - monitor mental status - significantly improved #RIVKA - baseline Cr 0.6, on admission 1.6 - IV hydration with plasma lyte - avoid nephrotoxic agents and dose - trend Cr #HTN - hold BP meds at this time #Restless Leg Syndrome - of note: some hx states pt had Parkinson's disease, however, per neurology note from 01/13/21 pt never had Parkinson's diagnosis. Sinemet was Rx-ed for RLS - sinemet resumed #Metastatic Small Cell Neuroendocrine tumor - diagnosed 08/2019 with resection of skull lesion, also noted to have T-spine lesions, hip - s/p palliative RT to spine and hip Jun 2023 #Chronic musculoskeletal pain - on methadone and oxycodone along with gabapentin currently held due to lethargy - resume methadone at 10mg po TID along with PRN oxycodone #Anxiety / Depression - hold PO meds at this time - resume duloxetine, lamotrigine #DVT ppx: hep subq #Dispo- pending clinical improvement #Code status: Full code (per pt) Admission and Anticipated Discharge Date Admission Date: August 18, 2025 Subjective No acute events overnight Pt weaned off of BiPAP Communicating appropriately Review of Systems Review of Systems: Comprehensive ROS completed and is otherwise negative. Physical Exam Physical Exam: Gen: minimally responsive on initial exam, pt responsive but confused on follow up exam HEENT: NC/AT, MMM, BiPAP in place Lungs: diminished breath sounds bilaterally CVS: s1s2nl, tachycardic Abd: nl bowel sounds, soft, NT / ND : no billingsley Ext: no edema , right wrist drop Neuro: drowsy but easily arousable Psych: restless Results & Data Results & Data Vital Signs (Past 12 Hours) Vital Signs Temp Pulse Resp BP Pulse Ox O2 Del Method O2 Flow Rate 08/19/25 06:00 134/62 08/19/25 06:00 36.8 C 88 19 91 08/19/25 05:09 36.9 C 81 18 90 08/19/25 05:00 133/91 08/19/25 04:42 36.7 C 96 H 15 98 08/19/25 04:35 83 19 94 08/19/25 04:06 36.8 C 83 15 92 08/19/25 04:00 120/66 08/19/25 04:00 120/66 08/19/25 03:57 36.7 C 77 20 93 08/19/25 03:09 36.8 C 82 19 91 08/19/25 02:12 36.8 C 86 17 91 08/19/25 02:00 116/64 08/19/25 01:57 36.9 C 84 18 93 08/19/25 01:37 89 20 98 08/19/25 01:00 120/64 08/19/25 01:00 120/64 08/19/25 01:00 120/64 08/19/25 01:00 120/64 08/19/25 01:00 120/64 08/19/25 01:00 36.8 C 88 15 94 08/19/25 00:03 36.5 C 90 21 96 08/19/25 00:00 11608/19/25 00:00 11608/19/25 00:00 11608/19/25 00:00 88 08/18/25 23:36 36.6 C 88 20 96 08/18/25 23:06 36.6 C 85 20 95 08/18/25 22:50 Oxymask 5 08/18/25 22:06 36.7 C 93 H 21 95 08/18/25 21:27 36.9 C 90 22 93 08/18/25 21:00 11308/18/25 21:00 11308/18/25 21:00 11308/18/25 20:30 36.7 C 92 H 17 92 08/18/25 20:12 36.8 C 91 H 26 H 93 08/18/25 20:00 11871 08/18/25 20:00 11871 08/18/25 19:39 36.8 C 93 H 25 H 91 FiO2 08/19/25 06:00 08/19/25 06:00 08/19/25 05:09 08/19/25 05:00 08/19/25 04:42 08/19/25 04:35 40 08/19/25 04:06 08/19/25 04:00 08/19/25 04:00 08/19/25 03:57 08/19/25 03:09 08/19/25 02:12 08/19/25 02:00 08/19/25 01:57 08/19/25 01:37 40 08/19/25 01:00 08/19/25 01:00 08/19/25 01:00 08/19/25 01:00 08/19/25 01:00 08/19/25 01:00 08/19/25 00:03 08/19/25 00:00 08/19/25 00:00 08/19/25 00:00 08/19/25 00:00 08/18/25 23:36 08/18/25 23:06 08/18/25 22:50 08/18/25 22:06 08/18/25 21:27 08/18/25 21:00 08/18/25 21:00 08/18/25 21:00 08/18/25 20:30 08/18/25 20:12 08/18/25 20:00 08/18/25 20:00 08/18/25 19:39 PG Care Time/CCT Total # of Minutes Spent Total Time Spent with Patient: Total time spent is greater than 50% in coordination of care (as documented) at patient's floor/unit and/or counseling patient: Coding Level of Care Code 43227 SUB INP/OBS CARE 3/50MIN Diagnoses Acute exacerbation of chronic obstructive pulmonary disease J44.1 Acute encephalopathy G93.40 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
--- NOTE | 2025-08-19 08:22 | Critical Care Progress Note ---
Date of Service August 19, 2025 Assessment & Plan (1) Multifocal pneumonia: (2) Respiratory failure with hypoxia and hypercapnia: Plan Impression: 74-year-old female with metastatic neuroendocrine small cell cancer admitted with hypoxemic hypercarbic respiratory failure likely secondary to polypharmacy as well as multifocal pneumonia, likely aspiration. She is admitted to the ICU for monitoring on noninvasive positive pressure ventilation. Recommendations: 1. Multifocal pneumonia: The patient has been initiated on Zosyn and azithromycin. Discontinue vancomycin given negative MRSA swabs. Procalcitonin appropriately decreasing. Cultures negative to date. Anticipate 5 to 7-day course of therapy. Would recommend swallow evaluation for potential aspiration. 2. Hypoxemic hypercarbic respiratory failure: Secondary to #1 as well as chronic respiratory suppressant medications. Would continue noninvasive positive pressure ventilation nightly and as needed during the day 3. Renal insufficiency: Resolved 4. Mild anemia: Not far off from baseline. No evidence of acute blood loss. No indication for transfusion currently. Continue to follow. 5. Right arm weakness: Not a candidate for tPA. Defer additional intervention to the primary admitting service Patient's critical care issues appear resolved. She can transfer out of the ICU. Critical care will sign off. Feel free to contact us with questions or concerns Admission and Anticipated Discharge Date Admission Date: August 18, 2025 Subjective Patient seen and examined. EMR reviewed. Discussed with overnight critical care PEDRITO as well as with bedside critical care nurse in a multidisciplinary rounds. The patient is better this morning. She continues to have some fluctuating right arm complaints. She was on noninvasive positive pressure ventilation overnight and tolerated it well. She denies any respiratory issues this morning. She is unable to take her regularly scheduled pain medications due to somnolence last evening. Review of Systems Review of Systems: All systems reviewed & are unremarkable except as noted in Subjective Physical Exam Constitutional: WD/WN, vitals as above no acute distress Respiratory: normal respiratory effort, lungs clear to auscultation Cardiovascular: Rate/Rhythm: regular rate and regular rhythm Extremities: + edema (+1 bilat LE's) Skin: no rashes, warm and dry Neurologic: moves all extremities Psychiatric: A+Ox3, euthymic affect Results & Data Results & Data Vital Signs (Past 12 Hours) Vital Signs Temp Pulse Resp BP Pulse Ox O2 Del Method O2 Flow Rate 08/19/25 07:30 92 H 16 92 08/19/25 06:00 134/62 08/19/25 06:00 36.8 C 88 19 91 08/19/25 05:09 36.9 C 81 18 90 08/19/25 05:00 133/91 08/19/25 04:42 36.7 C 96 H 15 98 08/19/25 04:35 83 19 94 08/19/25 04:06 36.8 C 83 15 92 08/19/25 04:00 120/66 08/19/25 04:00 12066 08/19/25 03:57 36.7 C 77 20 93 08/19/25 03:09 36.8 C 82 19 91 08/19/25 02:12 36.8 C 86 17 91 08/19/25 02:00 116/64 08/19/25 01:57 36.9 C 84 18 93 08/19/25 01:37 89 20 98 08/19/25 01:00 120/64 08/19/25 01:00 120/08/19/25 01:00 120/64 08/19/25 01:00 120/64 08/19/25 01:00 120/64 08/19/25 01:00 36.8 C 88 15 94 08/19/25 00:03 36.5 C 90 21 96 08/19/25 00:00 116/08/19/25 00:00 116/76 08/19/25 00:00 116/76 08/19/25 00:00 88 08/18/25 23:36 36.6 C 88 20 96 08/18/25 23:06 36.6 C 85 20 95 08/18/25 22:50 Oxymask 5 08/18/25 22:06 36.7 C 93 H 21 95 08/18/25 21:27 36.9 C 90 22 93 08/18/25 21:00 113/70 08/18/25 21:00 113/70 08/18/25 21:00 113/70 08/18/25 20:30 36.7 C 92 H 17 92 FiO2 08/19/25 07:30 40 08/19/25 06:00 08/19/25 06:00 08/19/25 05:09 08/19/25 05:00 08/19/25 04:42 08/19/25 04:35 40 08/19/25 04:06 08/19/25 04:00 08/19/25 04:00 08/19/25 03:57 08/19/25 03:09 08/19/25 02:12 08/19/25 02:00 08/19/25 01:57 08/19/25 01:37 40 08/19/25 01:00 08/19/25 01:00 08/19/25 01:00 08/19/25 01:00 08/19/25 01:00 08/19/25 01:00 08/19/25 00:03 08/19/25 00:00 08/19/25 00:00 08/19/25 00:00 08/19/25 00:00 08/18/25 23:36 08/18/25 23:06 08/18/25 22:50 08/18/25 22:06 08/18/25 21:27 08/18/25 21:00 08/18/25 21:00 08/18/25 21:00 08/18/25 20:30 Critical Care Results & Data Vital Signs (Past 12 Hours) Vital Signs Temp Pulse Resp BP Pulse Ox O2 Del Method O2 Flow Rate 08/19/25 07:30 92 H 16 92 08/19/25 06:00 134/62 08/19/25 06:00 36.8 C 88 19 91 08/19/25 05:09 36.9 C 81 18 90 08/19/25 05:00 133/91 08/19/25 04:42 36.7 C 96 H 15 98 08/19/25 04:35 83 19 94 08/19/25 04:06 36.8 C 83 15 92 08/19/25 04:00 120/66 08/19/25 04:00 120/66 08/19/25 03:57 36.7 C 77 20 93 08/19/25 03:09 36.8 C 82 19 91 08/19/25 02:12 36.8 C 86 17 91 08/19/25 02:00 116/64 08/19/25 01:57 36.9 C 84 18 93 08/19/25 01:37 89 20 98 08/19/25 01:00 120/64 08/19/25 01:00 120/64 08/19/25 01:00 120/64 08/19/25 01:00 120/64 08/19/25 01:00 120/64 08/19/25 01:00 36.8 C 88 15 94 08/19/25 00:03 36.5 C 90 21 96 08/19/25 00:00 116/76 08/19/25 00:00 116/76 08/19/25 00:00 116/76 08/19/25 00:00 88 08/18/25 23:36 36.6 C 88 20 96 08/18/25 23:06 36.6 C 85 20 95 08/18/25 22:50 Oxymask 5 08/18/25 22:06 36.7 C 93 H 21 95 08/18/25 21:27 36.9 C 90 22 93 08/18/25 21:00 113/70 08/18/25 21:00 113/70 08/18/25 21:00 113/70 08/18/25 20:30 36.7 C 92 H 17 92 FiO2 08/19/25 07:30 40 08/19/25 06:00 08/19/25 06:00 08/19/25 05:09 08/19/25 05:00 08/19/25 04:42 08/19/25 04:35 40 08/19/25 04:06 08/19/25 04:00 08/19/25 04:00 08/19/25 03:57 08/19/25 03:09 08/19/25 02:12 08/19/25 02:00 08/19/25 01:57 08/19/25 01:37 40 08/19/25 01:00 08/19/25 01:00 08/19/25 01:00 08/19/25 01:00 08/19/25 01:00 08/19/25 01:00 08/19/25 00:03 08/19/25 00:00 08/19/25 00:00 08/19/25 00:00 08/19/25 00:00 08/18/25 23:36 08/18/25 23:06 08/18/25 22:50 08/18/25 22:06 08/18/25 21:27 08/18/25 21:00 08/18/25 21:00 08/18/25 21:00 08/18/25 20:30 Lab & Micro Results (Past 24 Hours) RBC 3.14 M/uL (4.20-5.40) L 08/19/25 WBC 10.55 K/ul (4.8-10.8) 08/19/25 Hgb 8.8 g/dl (12.0-16.0) L 08/19/25 Hct 29.7 % (37.0-47.0) L 08/19/25 MCV 94.6 fL (80.0-100.0) 08/19/25 MCH 28.0 pg (25.0-34.0) 08/19/25 MCHC 29.6 g/dL (32.0-36.0) L 08/19/25 RDW Standard Deviation 55.2 fL (36.4-46.3) H 08/19/25 RDW Coefficient of Variation 16.0 % (11.5-14.5) H 08/19/25 Plt Count 194 K/uL (130-400) 08/19/25 MPV 9.5 fL (9.4-12.4) 08/19/25 Nucleated Red Blood Cells % (auto) 0.2 % 08/19 Nucleated RBC Absolute Count (auto) 0.02 K/uL (0.00-0.12) 1 Neutrophils (%) (Auto) 95.9 % 08/19/25 Lymphocytes (%) (Auto) 1.4 % 08/19/25 Monocytes # (Auto) 0.17 K/uL (0.11-0.59) 08/19/25 Eosinophils # (Auto) 0.00 K/uL (0.00-0.50) 08/19/25 Immature Granulocyte % (Auto) 0.9 % 08/19/25 Neutrophils # (Auto) 10.11 K/uL (1.40-6.50) H 08/19/25 Lymphocytes # (Auto) 0.15 K/uL (1.20-3.40) L 08/19/25 Monocytes # (Auto) 0.17 K/uL (0.11-0.59) 08/19/25 Eosinophils # (Auto) 0.00 K/uL (0.00-0.50) 08/19/25 Basophils # (Auto) 0.02 K/uL (0.00-0.20) 08/19/25 Immature Granulocyte # (Auto) 0.10 K/uL (0.01-0.20) 5 Polychromasia 1+ 08/18/25 Na 139 mmol/L (136-145) 08/19/25 K 3.8 mmol/L (3.5-5.1) 08/19/25 Cl 98 mmol/L (98-107) 08/19/25 CO2 35 mmol/L (21-32) H 08/19/25 Anion Gap 6 (3-11) 08/19/25 BUN 24 mg/dl (6-23) H 08/19/25 Creatinine 0.69 mg/dl (0.6-1.2) 08/19/25 BUN/Creatinine Ratio 34.8 (10-20) H 08/19/25 Glu 135 mg/dl (70-99(Fasting)) H 08/19/25 Ca 8.1 mg/dl (8.6-10.3) L 08/19/25 Phosphorus Level 3.3 mg/dl (2.5-4.9) 08/19/25 Total Bilirubin 0.7 mg/dl (0.2-1.0) 08/18/25 AST 54 U/L (13-39) H 08/18/25 ALT 15 U/L (7-52) 08/18/25 Alkaline Phosphatase 85 U/L (34-104) 08/18/25 TP 7.7 gm/dl (6.0-8.3) 08/18/25 Albumin 4.3 gm/dl (3.4-5.0) 08/18/25 Globulin 3.4 gm/dl (2.5-4.0) 08/18/25 Albumin/Globulin Ratio 1.3 (0.9-2) 08/18/25 Mg 2.2 mg/dl (1.7-2.4) 08/19/25 04:30 Calcium Level 8.1 mg/dl (8.6-10.3) L 08/19/25 04:30 Venous Blood pH 7.30 (7.36-7.41) L 08/18/25 11:45 Venous Blood Partial Pressure CO2 66 mmHg (38-50) H 08/18/25 11 :45 Venous Blood Partial Pressure O2 35 mmHg 08/18/25 11:45 Venous Blood HCO3 33 mmol/L 08/18/25 11:45 Venous Blood Base Excess 4.0 mEq/L 08/18/25 11:45 Venous Blood Oxygen Saturation < 60.0 % 08/18/25 11:45 Miguelito Test Pass 08/18/25 12:15 Diagnostic Findings (Past 24 Hours) Abdomen/Pelvis CT 08/18/25 09:00 CT SCAN OF THE ABDOMEN AND PELVIS WITH IV CONTRAST CLINICAL HISTORY: Fall. Weakness. COMPARISON STUDY: CT of the abdomen and pelvis July 19, 2025. TECHNIQUE: Following the IV administration of 112 cc of Optiray 320, CT scan of the abdomen and pelvis is performed from the lung bases to the proximal femora. Images are reviewed in the axial, sagittal, and coronal planes. IV contrast was administered without complication. A dose lowering technique was utilized adhering to the principles of ALARA. CT DOSE: 1803.68 mGy.cm FINDINGS: Extensive bilateral lower lobe alveolar opacities have developed since CT of July 19, 2025. These are better depicted on the same day chest CT which will be reported separately. No hemoperitoneum or pneumoperitoneum is present. No evidence for traumatic injury to the solid abdominal viscera. Mild dilatation of the common bile duct is unchanged. There are no hepatic lesions. There is hepatic steatosis. Sensitivity for detection of renal calculi diminished given excreted contrast. There is no evidence for a bowel obstruction. There is a moderate amount of stool within the colon. There is no lymphadenopathy. No fluid collections are present. Postoperative findings within the lumbosacral spine are again noted. There are no acute fractures within the lumbar spine, pelvis or hips. IMPRESSION: 1. No acute traumatic findings within the abdomen or pelvis. 2. Interval development of extensive bilateral lower lobe alveolar opacities since CT of July 19, 2025. The findings suggest pneumonia or aspiration pneumonitis, better depicted on the chest CT which will be reported separately. ACT 112: Negative or not required by law. Electronically signed by: Daryl Keita M.D. 08/18/2025 11:00 AM Chest CTA 08/18/25 09:00 CT angio chest PE protocol CT DOSE: 1443.02 mGy.cm HISTORY: hypoxic, fall, MURILLO, R weak. TECHNIQUE: Multiple CTA images of the chest were obtained after the intravenous administration of 112 ml Optiray. Coronal and sagittal MIPS were obtained from the axial data set and were submitted for review. All measurements were obtained according to NASCET criteria. A dose lowering technique was utilized adhering to the principles of ALARA. COMPARISON STUDY: 07/19/2025 FINDINGS: There is motion artifact due to difficulty breath holding. There are mild airway secretions. There is interval scattered areas of patchy consolidation most prominent at the lung bases, consistent with acute pneumonia. There is no pleural effusion or pneumothorax. Stable left hilar mass measuring 3 cm. No pericardial effusion. There are diffuse coronary artery calcifications. No thoracic aortic dissection or aneurysm seen. Evaluation of the tiny distal pulmonary arterial branches is limited by motion. No pulmonary embolism seen. There are moderate thoracic spine degenerative changes. No acute osseous findings. IMPRESSION: 1. No pulmonary embolism seen. 2. Bilateral pneumonia. Recommend follow-up chest CT in 3 months to make sure this resolves without underlying pulmonary nodule. 3. Otherwise as described. ACT 112: Positive. There are findings on this exam that require communication between the performing entity and the patient following Patient Test Result Information Act ([place] Act 112) guidelines. The above report was generated using voice recognition software. It may contain grammatical, syntax or spelling errors. Electronically signed by: Shoaib Bah M.D. 08/18/2025 11:21 AM Chest X-Ray 08/18/25 09:00 XR chest 1V portable CLINICAL HISTORY: weakness, fall COMPARISON STUDY: 06/28/2025 FINDINGS: Stable mild cardiomegaly with mild pulmonary vascular congestion. There are interval faint patchy opacities at the mid and lower lungs. No pleural effusion or pneumothorax. IMPRESSION: Early bilateral pneumonia. ACT 112: Negative or not required by law. Electronically signed by: Shoaib Bah M.D. 08/18/2025 11:[address] 08/18/25 09:00 CT head/brain wo con CLINICAL HISTORY: fall, MURILLO, R weak. TECHNIQUE: Multiple axial CT images of the head were obtained without contrast. A dose lowering technique was utilized adhering to the principles of ALARA. COMPARISON: 06/28/2025 FINDINGS: No intracranial hemorrhage seen. No mass effect, midline shift, or hydrocephalus. No skull fracture seen. Visualized paranasal sinuses and mastoid air cells are clear. Stable small right parieto-occipital craniotomy. IMPRESSION: No acute findings. ACT 112: Negative or not required by law. The above report was generated using voice recognition software. It may contain grammatical, syntax or spelling errors. Electronically signed by: Shoaib Bah M.D. 08/18/2025 10:27 AM Head CTA 08/18/25 09:00 CT angio head w con CLINICAL HISTORY: 74 years-old Female with fall, MURILLO, R weak. Acute headache with right-sided weakness/stroke like symptoms COMPARISON STUDY: Head CT of same day and also 06/17/2025, CTA head 08/07/2018. TECHNIQUE: Following the IV administration of 112 cc of Optiray, CT angiogram of the brain was performed from the skull base to the vertex. Images are reviewed in the axial, sagittal, and coronal planes. 3-D MIPS images are created and assessed. IV contrast was administered without complication. All measurements were obtained according to NASCET criteria. A dose lowering technique was utilized adhering to the principles of ALARA. FINDINGS: Motion degraded exam. CT BRAIN: Dictated separately. Involutional changes with chronic microvascular ischemic disease. Right occipital craniectomy changes are present. CT ANGIOGRAM OF THE BRAIN: The imaged bilateral internal carotid arteries are patent. The bilateral anterior and middle cerebral arteries are also patent. The vertebrobasilar system and posterior cerebral arteries are widely patent. There is no aneurysm, high-grade stenosis, or proximal branch occlusion identified. Dural sinuses appear patent. Mild dilation of the superior ophthalmic veins, of doubtful clinical significance. IMPRESSION: Unremarkable CTA of the head. ACT 112: Negative or not required by law. The above report was generated using voice recognition software. It may contain grammatical, syntax or spelling errors. Electronically signed by: Kervin Chaudhari M.D. 08/18/2025 10:36 AM Neck CTA 08/18/25 09:00 CT ANGIOGRAPHY OF THE NECK WITH CONTRAST CLINICAL HISTORY: Fall. Headache. Right-sided weakness. COMPARISON STUDY: Cervical spine CT June 28, 2025. Carotid ultrasound November 04, 2011. Technique: CT angiography of the carotid and vertebral arteries was obtained using Optiray and 3D reconstruction on an independent workstation. NASCET criteria was utilized. Automated exposure control was utilized for the study. A dose lowering technique was utilized adhering to the principles of ALARA. Findings: Visualized portions of the lung apices demonstrate scattered alveolar opacities within the right upper lobe, new since cervical spine CT of June 28, 2025. There is underlying emphysema. The findings are better depicted on the chest CT which will be reported separately. No acute cervical spine fractures are noted. Mild loss of height of the inferior endplate of C4 is unchanged. Mixed lucent and sclerotic appearance of the C4 vertebral body remains indeterminate. This is unchanged. The left vertebral artery is dominant. The right vertebral artery is somewhat diminutive on a congenital basis. There is moderate atherosclerotic plaque within the proximal bilateral internal carotid arteries. This results in 50% stenosis of the proximal bilateral internal carotid arteries. IMPRESSION: 1. Moderate atherosclerotic plaque which results in 50% stenosis of the proximal bilateral internal carotid arteries. 2. No aneurysm or dissection within the neck. 3. Right upper lobe alveolar opacities better depicted on the chest CT. These suggest pneumonia or aspiration pneumonitis. ACT 112: Negative or not required by law. Electronically signed by: Daryl Keita M.D. 08/18/2025 10:54 AM I & O Totals 24 Hours 08/18/25 08/19/25 08/20/25 06:59 06:59 06:59 Intake Total 2550.333 / 2550.333 Output Total 2024 Balance 525.333 / 525.333 Cumulative 08/18/25 08:42 thru 08/19/25 06:00 Intake Total 2550.333 Output Total 2024 Balance 525.333 RT Ventilator Mngmt (Last Documented) Ventilator Ordered Settings Respiratory Rate 16 08/19/25 07:30 Fraction of Inspired Oxygen 40 08/19/25 07:30 Ventilator - PT Measurements Respiratory Rate 16 Coding Level of Care Code 08694 SUB INP/OBS CARE 2/35MIN Diagnoses Multifocal pneumonia J18.8 Respiratory failure with hypoxia and hypercapnia J96.91; J96.92
[2025-08-19] MEDS: FLUTICASONE/VILANTEROL 200/25MCG 14 PUFFS/INHALER INH SCH (09:19)
[2025-08-19] MEDS: UMECLIDINIUM BROMIDE 62.5MCG/BLISTER 7 PUFFS/INHALER INH SCH (09:19)
--- NOTE | 2025-08-19 11:18 | Palliative Care Consultation ---
Date of Consultation August 19, 2025 Assessment & Plan (1) Cancer related pain: Pt c/o chronic "all over" pain she attributes to her cancer and cancer treatments. She states the most bothersome pain is in her neck, posterior chest and thoracic spine. She shared that her pain has been well managed prir to this admission and she is taking all medications as prescribed. She shared concern that the medications may have caused her to be confused and does not wish to be on the same doses if she does not need them. Discussed that her methadone dose has been consistent for several months and unlikely to cause an acute change in MS. She shared that her pain is currently a 8::10, and she does wish for ompro praneeth pain mgmt, but resistent to taking 25mg methadone at this time. We discussed plan for 10mg methadone TID with continued PRN oxyIR for BTP. Pt agreeable. Pt follows with PEDRITO Manda Hendrix for pain/symptom management with oncology team, discussed plan with her as well. Ordered Methadone HCl 10 mg PO TID DENISA Continue Oxycodone HCl 10 mg PO Q4H PRN for BTP (2) Weakness generalized: (3) Chemotherapy-induced neuropathy: Pt unclear if she had been taking her gabapentin regularly. Consider adding gabapentin back to her regime for neuropathic pains. Plan as above. 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 She was brought in for evaluation of stroke. Stroke workup was negative, however, she was noted to have multifocal pneumonia and admitted for medical mgmt. Allergies Allergy/AdvReac Type Severity Reaction Status Date / Time codeine Allergy Unknown itching Verified 06/22/25 07:34 Home Medications Medication Instructions Recorded Confirmed Type lamotrigine 25 mg tablet 50 mg PO HS 09/20/21 08/18/25 History duloxetine 60 mg capsule,delayed 60 mg PO QAM 04/24/23 08/18/25 History release duloxetine 30 mg capsule,delayed 30 mg PO QPM 09/08/23 08/18/25 History release gabapentin 300 mg capsule 300 mg PO TID 12/03/24 08/18/25 History methadone 10 mg tablet 20 mg PO TID 12/03/24 08/18/25 History methadone 5 mg tablet 5 mg PO TID 12/03/24 08/18/25 History omeprazole 20 mg tablet,delayed 20 mg PO QAM 12/03/24 08/18/25 History release cyanocobalamin (vitamin B-12) 1,000 mcg PO QAM 01/17/25 08/18/25 History 1,000 mcg capsule albuterol sulfate 90 mcg/actuation 2 puff inhalation Q6H PRN 03/15/25 08/18/25 Rx aerosol inhaler shortness of breath or wheezing #8.5 grams amlodipine 2.5 mg tablet 2.5 mg PO QAM #30 tabs 03/28/25 08/18/25 Rx amlodipine 5 mg tablet 5 mg PO QAM 06/28/25 08/18/25 History aspirin 81 mg tablet,delayed 81 mg PO QAM 06/28/25 08/18/25 History release hydrochlorothiazide 12.5 mg capsule 12.5 mg PO QAM 06/28/25 08/18/25 History mirabegron 25 mg tablet,extended 25 mg PO QAM 06/28/25 08/18/25 History release 24 hr (Myrbetriq) oxycodone 10 mg tablet 10 mg PO .EVERY 4-6 HOURS PRN 06/28/25 08/18/25 History Breakthrough Pain quetiapine 300 mg tablet 300 mg PO HS 06/28/25 08/18/25 History budesonide-formoterol HFA 160 2 inh inhalation BID 1 month #10.2 06/29/25 08/18/25 Rx mcg-4.5 mcg/actuation aerosol grams inhaler (Symbicort) tiotropium bromide 2.5 2 inh inhalation DAILY 1 month #4 06/29/25 08/18/25 Rx mcg/actuation mist for inhalation grams (Spiriva Respimat) fluticasone propionate 50 2 spray intranasal DAILY PRN 07/20/25 08/18/25 Rx mcg/actuation nasal Allergy Symptoms #16 grams spray,suspension carbidopa 25 mg-levodopa 250 mg 1 tab PO BID #60 tabs 07/29/25 08/18/25 Rx tablet Patient History Medical History Muscle weakness able to ambulate independently; when feeling weak uses motorized WC 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 bx 01/06/25; pathology nondiagnostic; per general surgery note 'likely SCC' Neuroendocrine tumor small cell neuroendocrine tumor; per heme/onc note 12/17/24, primarily located at posterior skull; s/p resection of lesions 2018 and 2020; also s/p chemo; developed spinal lesions and skeletal lesions which were tx with XRT; on palliative care currently Spinal stenosis RLS (restless legs syndrome) taking carbidopa/levodopa OAB (overactive bladder) Mixed anxiety and depressive disorder Hx of hyperlipidemia History of hypertension Hx of gastroesophageal reflux (GERD) no recent issues Emphysema lung COPD (chronic obstructive pulmonary disease) admitted [facility] 12/02-12/04/24; dx acute hypoxemic resp failure/COPD exacerbation Chronic headache hx, only prior to brain surgery, no recent issues Cervical spondylosis no limits w/ ROM 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 pylori infection hx Stomach ulcer hx, no recent issues Surgical History History of surgery (02/15/25) Right Lower Extremity Wide Local Excision of Squamous Cell Carcinoma, intermediate layered closure (Right) - Chi Mathew DO History of open reduction and internal fixation (ORIF) procedure right foot > hardware intact Hx of colonoscopy (2019) Status post right knee replacement S/P excision of lipoma History of spinal surgery LUMBAR FUSION H/O brain surgery 2 tumor removals: 2018 and 03/29/21: Resection of Occipital Subgaleal Lesion Dr. Curt Wen at [facility] H/O exploratory laparotomy (2019) History of anesthesia reaction PT STATES THAT SHE WOKE UP TWICE DURING PREVIOUS COLONOSCOPY AND WAS ADVISED TO ALERT STAFF OF THIS FOR FUTURE PROCEDURES. History of surgery REMOVAL OF RIGHT LABIA FOLLOWING DX OF VULVA CANCER Family History Mother , Passed Age 90's due to stroke Depression Hypertension Anxiety Stroke Sister Depression Hypertension Cerebral aneurysm Anxiety Father , in his mid to later 40s of an DC Hypertension Myocardial infarction Cardiac disorder Anxiety Lymphoma Cancer Other Family history non-contributory Has no children Denies family history of Ovarian cancer Prostate cancer Breast cancer Colorectal cancer Social History Smoking Status: Never smoker Tobacco Type: Cigarettes Age Started Using Tobacco: 20; Age Quit Using Tobacco: 20; packs per day: 0.25; Second Hand Exposure: No; Do You Dip or Chew Tobacco: No; Hx Alcohol Use: No Hx Substance Use: No Preferred Language: Amharic Communication Ability: Effective Visual Impairment: No Limitations Hearing Ability: Hard of Hearing Pharmaceutical Process Engineer Required: No Beliefs That Will Affect Care: None marital status: / Current Living Situation: Alone Current Living Situation Comment: Home with caregivers per patient current occupational status: disabled 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 [employer] How many Children do You have: 0 Other Information That Helps Us Care for You: No 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) Feels Safe at Home: Yes Safety Concerns: Feels Safe At This Time Childhood Exposure to Second-Hand Smoke: Yes Diet: regular caffeine: Yes (half a cup of coffee daily) during the past year weight has: decreased > 10 lbs Dental Care, Regularly: Yes Physical Activity Frequency: Does not Exercise Seatbelt Use: always Sunscreen Use: No Assistive Devices: Denture - Upper, Denture - Lower, Glasses and Scooter/Electric Scooter Review of Systems Review of Systems: All systems reviewed & are unremarkable except as noted in HPI & below Physical Exam Constitutional: WD/WN, vitals as above no acute distress Respiratory: normal respiratory effort, lungs clear to auscultation Cardiovascular: Rate/Rhythm: regular rate and regular rhythm Extremities: + edema (+1 bilat LE's) Skin: no rashes, warm and dry Neurologic: moves all extremities Psychiatric: A+Ox3, euthymic affect Results & Data Vital Signs (Past 12 Hours) Vital Signs Temp Pulse Resp BP Pulse Ox O2 Del Method O2 Flow Rate 08/19/25 10:01 142/62 H 08/19/25 10:00 37.1 C 79 14 90 08/19/25 09:06 37.0 C 84 17 91 08/19/25 09:00 136/77 08/19/25 08:45 Nasal Cannula 2 08/19/25 08:03 36.8 C 77 21 92 08/19/25 08:00 145/65 H 08/19/25 07:30 92 H 16 92 08/19/25 07:00 36.9 C 78 18 91 08/19/25 06:00 134/62 08/19/25 06:00 36.8 C 88 19 91 08/19/25 05:09 36.9 C 81 18 90 08/19/25 05:00 133/91 08/19/25 04:42 36.7 C 96 H 15 98 08/19/25 04:35 83 19 94 08/19/25 04:06 36.8 C 83 15 92 08/19/25 04:00 120/66 08/19/25 04:00 120/08/19/25 03:57 36.7 C 77 20 93 08/19/25 03:09 36.8 C 82 19 91 08/19/25 02:12 36.8 C 86 17 91 08/19/25 02:00 116/64 08/19/25 01:57 36.9 C 84 18 93 08/19/25 01:37 89 20 98 08/19/25 01:00 120/64 08/19/25 01:00 120/64 08/19/25 01:00 120/64 08/19/25 01:00 120/64 08/19/25 01:00 120/64 08/19/25 01:00 36.8 C 88 15 94 08/19/25 00:03 36.5 C 90 21 96 08/19/25 00:00 116/76 08/19/25 00:00 116/76 08/19/25 00:00 116/76 08/19/25 00:00 88 08/18/25 23:36 36.6 C 88 20 96 FiO2 08/19/25 10:01 08/19/25 10:00 08/19/25 09:06 08/19/25 09:00 08/19/25 08:45 08/19/25 08:03 08/19/25 08:00 08/19/25 07:30 40 08/19/25 07:00 08/19/25 06:00 08/19/25 06:00 08/19/25 05:09 08/19/25 05:00 08/19/25 04:42 08/19/25 04:35 40 08/19/25 04:06 08/19/25 04:00 08/19/25 04:00 08/19/25 03:57 08/19/25 03:09 08/19/25 02:12 08/19/25 02:00 08/19/25 01:57 08/19/25 01:37 40 08/19/25 01:00 08/19/25 01:00 08/19/25 01:00 08/19/25 01:00 08/19/25 01:00 08/19/25 01:00 08/19/25 00:03 08/19/25 00:00 08/19/25 00:00 08/19/25 00:00 08/19/25 00:00 08/18/25 23:36 Laboratory Results Abnormal lab results 08/18/25 08/18/25 08/18/25 Range/Units 16:51 17:00 21:26 RBC (4.20-5.40) M/uL Hgb (12.0-16.0) g/dl Hct (37.0-47.0) % MCHC (32.0-36.0) g/dL RDW Std Deviation (36.4-46.3) fL RDW Coeff of Ginger (11.5-14.5) % Neut # (Auto) (1.40-6.50) K/uL Lymph # (Auto) (1.20-3.40) K/uL Carbon Dioxide (21-32) mmol/L BUN (6-23) mg/dl BUN/Creatinine Ratio (10-20) Glucose (70-99(Fasting)) mg/dl POC Glucose 124 H 161 H (70-99) mg/dl Calcium (8.6-10.3) mg/dl Procalcitonin (0-0.5) ng/ml Ur Specific [place] 1.039 H (1.000-1.030) Urine Blood 1+ H (Negative) U Hyaline Cast (Auto) 11-20 H (0-2) /lpf Random Vancomycin (10-20) mcg/ml 08/19/25 08/19/25 Range/Units 03:47 04:30 RBC 3.14 L (4.20-5.40) M/uL Hgb 8.8 L (12.0-16.0) g/dl Hct 29.7 L (37.0-47.0) % MCHC 29.6 L (32.0-36.0) g/dL RDW Std Deviation 55.2 H (36.4-46.3) fL RDW Coeff of Ginger 16.0 H (11.5-14.5) % Neut # (Auto) 10.11 H (1.40-6.50) K/uL Lymph # (Auto) 0.15 L (1.20-3.40) K/uL Carbon Dioxide 35 H (21-32) mmol/L BUN 24 H D (6-23) mg/dl BUN/Creatinine Ratio 34.8 H (10-20) Glucose 135 H (70-99(Fasting)) mg/dl POC Glucose 148 H (70-99) mg/dl Calcium 8.1 L (8.6-10.3) mg/dl Procalcitonin 3.13 H (0-0.5) ng/ml Ur Specific [place] (1.000-1.030) Urine Blood (Negative) U Hyaline Cast (Auto) (0-2) /lpf Random Vancomycin 6.6 L (10-20) mcg/ml Diagnostic Findings Abdomen/Pelvis CT 08/18/25 09:00 CT SCAN OF THE ABDOMEN AND PELVIS WITH IV CONTRAST CLINICAL HISTORY: Fall. Weakness. COMPARISON STUDY: CT of the abdomen and pelvis July 19, 2025. TECHNIQUE: Following the IV administration of 112 cc of Optiray 320, CT scan of the abdomen and pelvis is performed from the lung bases to the proximal femora. Images are reviewed in the axial, sagittal, and coronal planes. IV contrast was administered without complication. A dose lowering technique was utilized adhe ring to the principles of ALARA. CT DOSE: 1803.68 mGy.cm FINDINGS: Extensive bilateral lower lobe alveolar opacities have developed since CT of July 19, 2025. These are better depicted on the same day chest CT which will be reported separately. No hemoperitoneum or pneumoperitoneum is present. No evidence for traumatic injury to the solid abdominal viscera. Mild dilatation of the common bile duct is unchanged. There are no hepatic lesions. There is hepatic steatosis. Sensitivity for detection of renal calculi diminished given excreted contrast. There is no evidence for a bowel obstruc tion. There is a moderate amount of stool within the colon. There is no lymphadenopathy. No fluid collections are present. Postoperative findings within the lumbosacral spine are again noted. There are no acute fractures within the lumbar spine, pelvis or hips. IMPRESSION: 1. No acute traumatic findings within the abdomen or pelvis. 2. Interval development of extensive bilateral lower lobe alveolar opacities since CT of July 19, 2025. The findings suggest pneumonia or aspiration pneumonitis, better depicted on the chest CT which will be reported separately. ACT 112: Negative or not required by law. Electronically signed by: Daryl Keita M.D. 08/18/2025 11:00 AM Chest CTA 08/18/25 09:00 CT angio chest PE protocol CT DOSE: 1443.02 mGy.cm HISTORY: hypoxic, fall, MURILLO, R weak. TECHNIQUE: Multiple CTA images of the chest were obtained after the intravenous administration of 112 ml Optiray. Coronal and sagittal MIPS were obtained from the axial data set and were submitted for review. All measurements were obtained according to NASCET criteria. A dose lowering technique was utilized adhering to the principles of ALARA. COMPARISON STUDY: 07/19/2025 FINDINGS: There is motion artifact due to difficulty breath holding. There are mild airway secretions. There is interval scattered areas of patchy consolidation most prominent at the lung bases, consistent with acute pneumonia. There is no pleural effusion or pneumothorax. Stable left hilar mass measuring 3 cm. No pericardial effusion. There are diffuse coronary artery calcifications. No thoracic aortic dissection or aneurysm seen. Evaluation of the tiny distal pulmonary arterial branches is limited by motion. No pulmonary embolism seen. There are moderate thoracic spine degenerative changes. No acute osseous findings. IMPRESSION: 1. No pulmonary embolism seen. 2. Bilateral pneumonia. Recommend follow-up chest CT in 3 months to make sure this resolves without underlying pulmonary nodule. 3. Otherwise as described. ACT 112: Positive. There are findings on this exam that require communication between the performing entity and the patient following Patient Test Result Information Act ([place] Act 112) guidelines. The above report was generated using voice recognition software. It may contain grammatical, syntax or spelling errors. Electronically signed by: Shoaib Bah M.D. 08/18/2025 11:21 AM Chest X-Ray 08/18/25 09:00 XR chest 1V portable CLINICAL HISTORY: weakness, fall COMPARISON STUDY: 06/28/2025 FINDINGS: Stable mild cardiomegaly with mild pulmonary vascular congestion. There are interval faint patchy opacities at the mid and lower lungs. No pleural effusion or pneumothorax. IMPRESSION: Early bilateral pneumonia. ACT 112: Negative or not required by law. Electronically signed by: Shoaib Bah M.D. 08/18/2025 11:[address] 08/18/25 09:00 CT head/brain wo con CLINICAL HISTORY: fall, MURILLO, R weak. TECHNIQUE: Multiple axial CT images of the head were obtained without contrast. A dose lowering technique was utilized adhering to the principles of ALARA. COMPARISON: 06/28/2025 FINDINGS: No intracranial hemorrhage seen. No mass effect, midline shift, or hydrocephalus. No skull fracture seen. Visualized paranasal sinuses and mastoid air cells are clear. Stable small right parieto-occipital craniotomy. IMPRESSION: No acute findings. ACT 112: Negative or not required by law. The above report was generated using voice recognition software. It may contain grammatical, syntax or spelling errors. Electronically signed by: Shoaib Bah M.D. 08/18/2025 10:27 AM Head CTA 08/18/25 09:00 CT angio head w con CLINICAL HISTORY: 74 years-old Female with fall, MURILLO, R weak. Acute headache with right-sided weakness/stroke like symptoms COMPARISON STUDY: Head CT of same day and also 06/17/2025, CTA head 08/07/2018. TECHNIQUE: Following the IV administration of 112 cc of Optiray, CT angiogram of the brain was performed from the skull base to the vertex. Images are reviewed in the axial, sagittal, and coronal planes. 3-D MIPS images are created and assessed. IV contrast was administered without complication. All measurements were obtained according to NASCET criteria. A dose lowering technique was utilized adhering to the principles of ALARA. FINDINGS: Motion degraded exam. CT BRAIN: Dictated separately. Involutional changes with chronic microvascular ischemic disease. Right occipital craniectomy changes are present. CT ANGIOGRAM OF THE BRAIN: The imaged bilateral internal carotid arteries are patent. The bilateral anterior and middle cerebral arteries are also patent. The vertebrobasilar system and posterior cerebral arteries are widely patent. There is no aneurysm, high-grade stenosis, or proximal branch occlusion identified. Dural sinuses appear patent. Mild dilation of the superior ophthalmic veins, of doubtful clinical significance. IMPRESSION: Unremarkable CTA of the head. ACT 112: Negative or not required by law. The above report was generated using voice recognition software. It may contain grammatical, syntax or spelling errors. Electronically signed by: Kervin Chaudhari M.D. 08/18/2025 10:36 AM Neck CTA 08/18/25 09:00 CT ANGIOGRAPHY OF THE NECK WITH CONTRAST CLINICAL HISTORY: Fall. Headache. Right-sided weakness. COMPARISON STUDY: Cervical spine CT June 28, 2025. Carotid ultrasound November 04, 2011. Technique: CT angiography of the carotid and vertebral arteries was obtained using Optiray and 3D reconstruction on an independent workstation. NASCET criteria was utilized. Automated exposure control was utilized for the study. A dose lowering technique was utilized adhering to the principles of ALARA. Findings: Visualized portions of the lung apices demonstrate scattered alveolar opacities within the right upper lobe, new since cervical spine CT of June 28, 2025. There is underlying emphysema. The findings are better depicted on the chest CT which will be reported separately. No acute cervical spine fractures are noted. Mild loss of height of the inferior endplate of C4 is unchanged. Mixed lucent and sclerotic appearance of the C4 vertebral body remains indete rminate. This is unchanged. The left vertebral artery is dominant. The right vertebral artery is somewhat diminutive on a congenital basis. There is moderate atherosclerotic plaque within the proximal bilateral internal carotid arteries. This results in 50% stenosis of the proximal bilateral internal carotid arteries. IMPRESSION: 1. Moderate atherosclerotic plaque which results in 50% stenosis of the proximal bilateral internal carotid arteries. 2. No aneurysm or dissection within the neck. 3. Right upper lobe alveolar opacities better depicted on the chest CT. These suggest pneumonia or aspiration pneumonitis. ACT 112: Negative or not required by law. Electronically signed by: Daryl Keita M.D. 08/18/2025 10:54 AM Medications Administered Current Inpatient Medications Albuterol (Albuterol 0.083% Nebu Soln 3 Ml Vial) 2.5 mg NEB Q6H PRN; Protocol PRN Reason: Shortness Of Breath Or Wheezing Stop: 09/17/25 14:25 Fluticasone/Vilanterol (Fluticasone/Vilanterol 200/25mcg 14 Puffs/Inhaler) 1 puffs INH DAILY [facility]; Protocol Stop: 09/18/25 08:59 Last Admin: 08/19/25 09:19 Dose: 1 puffs Heparin Sodium (Porcine) (Heparin Sod 5,000 Unit/0.5 Ml Vial) 5,000 units SQ Q12 DENISA Stop: 09/17/25 20:59 Last Admin: 08/19/25 09:18 Dose: 5,000 units Azithromycin (Zithromax) 500 mg in 255 mls @ 127.5 mls/hr IV Q24H DENISA Stop: 08/23/25 14:29 Last Admin: 08/19/25 14:03 Dose: 127.5 mls/hr Piperacillin Sod/Tazobactam Sod (Zosyn) 4.5 gm in 100 mls @ 25 mls/hr IV Q8H [facility]; Protocol Stop: 08/23/25 16:14 Last Infusion: 08/19/25 13:16 Dose: Infused Methylprednisolone 40 mg/ (Syringe) 0.64 mls @ 1.5 mls/min IV DAILY [facility] Stop: 09/18/25 08:59 Last Admin: 08/19/25 09:17 Dose: 1.5 mls/min Methadone HCl (Methadone Hcl 10 Mg Tab) 10 mg PO TID [facility] Stop: 09/02/25 13:59 Last Admin: 08/19/25 14:03 Dose: 10 mg Ondansetron HCl (Ondansetron Inj 2 Mg/Ml 2 Ml Vial) 4 mg IV Q6H PRN PRN Reason: Nausea Stop: 09/17/25 16:18 Oxycodone HCl (Oxycodone Hcl Ir 5 Mg Tab (Immediate Release)) 10 mg PO Q4H PRN PRN Reason: Mod-Sev Pain (Scale 4-10) Stop: 09/02/25 13:58 Umeclidinium [place] (Umeclidinium [place] 62.5mcg/Blister 7 Puffs/Inhaler) 1 puffs INH DAILY [facility] Stop: 09/18/25 08:59 Last Admin: 08/19/25 09:19 Dose: 1 puffs PG Care Time/CCT Total # of Minutes Spent Total Time Spent with Patient: Total time spent is greater than 50% in coordination of care (as documented) at patient's floor/unit and/or counseling patient: [place] [address] IN/OBS CONSULT LVL 4,60M Patient Type New History Expanded Problem Focused Exam Expanded Problem Focused Medical Decision Making Moderate Complexity Diagnoses Cancer related pain G89.3 Weakness generalized R53.1 Chemotherapy-induced neuropathy G62.0; T45.1X5A
[2025-08-19] MEDS: METHADONE HCL 10 MG TAB PO STA (13:43)
[2025-08-19] MEDS ORDERED: METHADONE HCL 10 MG TAB PO SCH (14:00)
[2025-08-19] MEDS ORDERED: METHADONE HCL 5 MG TAB PO SCH (14:00)
[2025-08-19] MEDS: METHADONE HCL 10 MG TAB PO SCH (14:03)
[2025-08-19] MEDS: AZITHROMYCIN 500 MG/255 ML BAG IV SCH (14:03)
[2025-08-19] MEDS: GADOBUTROL 65ML VIAL IV ONE (20:14)
--- NOTE | 2025-08-19 21:19 | Magnetic Resonance Report ---
Exam(s): MRI HEAD W/WO Contrast EXAM: MR Head Without and With Intravenous Contrast CLINICAL HISTORY: Reason for exam: right hand weakness, h/o malignancy. TECHNIQUE: Magnetic resonance images of the head/brain without and with intravenous contrast in multiple planes. CONTRAST: Contrast must be dictated COMPARISON: Prior head CT from June 28, 2025. FINDINGS: Brain: Mild nonspecific white matter changes. The flow voids at the base the brain are intact. No mass. No hemorrhage. No acute infarct. No evidence of abnormal enhancement. The dural venous sinuses are patent. Ventricles: Mild ventriculomegaly. Bones/joints: Remote right posterior craniotomy. No acute fracture. Sinuses: Unremarkable as visualized. No acute sinusitis. Mastoid air cells: Unremarkable as visualized. No mastoid effusion. Orbits: Unremarkable as visualized. IMPRESSION: No evidence of acute intracranial pathology. No evidence of neoplasm. Electronically signed by: Leidy Brooke MD 08/19/25 21:18 PM
[2025-08-19] MEDS: CARBIDOPA/LEVODOPA 25-250 1 EA TAB PO SCH (21:29)
[2025-08-19] MEDS: lamoTRIgine 25 MG TAB PO SCH (21:30)
--- NOTE | 2025-08-19 21:42 | Magnetic Resonance Report ---
Exam(s): MRI C SPINE EXAM: MR Cervical Spine Without Intravenous Contrast CLINICAL HISTORY: Reason for exam: h/o malignancy. TECHNIQUE: Magnetic resonance images of the cervical spine without intravenous contrast in multiple planes. COMPARISON: Prior CT scan of the cervical spine from May 25, 2007. FINDINGS: This study is limited secondary to motion artifact. Vertebrae: There are 7 cervical type vertebral bodies with straightening normal cervical lordosis. No acute fracture. There is a critical spinal canal stenosis at C5-6. Mild to moderate facet arthropathy with mild to moderate synovitis, most significant at the right C3-4 facet joint. Spinal cord: There is a small mildly enhancing intramedullary lesion in the cervical cord at the level of C2-3 measuring 8.1 x 5.2 x 3.6 mm. There is flattening the ventral cord at C5-6 without evidence of abnormal cord signal. Soft tissues: The cervical flow voids are intact. IMPRESSION: There is a subtly enhancing intramedullary lesion at the level C2-3, which may represent demyelinating disease or malignancy. Electronically signed by: Leidy Brooke MD 08/19/25 21:41 PM
--- NOTE | 2025-08-19 21:46 | Magnetic Resonance Report ---
Exam(s): MRI T SPINE W/WO Contrast EXAM: MR Thoracic Spine Without and With Intravenous Contrast CLINICAL HISTORY: Reason for exam: h/o malignancy. TECHNIQUE: Magnetic resonance images of the thoracic spine without and with intravenous contrast in multiple planes. CONTRAST: Contrast must be dictated COMPARISON: Prior CT chest from 06-29-2012. FINDINGS: This study is limited secondary to motion artifact. Vertebrae: There are 12 thoracic type vertebral bodies with a mild dextroscoliosis and normal thoracic kyphosis. There is mild wedging of the T11 vertebral body, which is likely physiologic. Otherwise, there is normal vertebral body height and alignment. The bone mesial is heterogeneous with reactive endplate changes. No acute fracture. Discs/spinal canal/neural foramina: No acute findings. No significant disc disease. No spinal canal stenosis. Spinal cord: Unremarkable. Normal signal. No abnormal enhancement. Soft tissues: Multiple pulmonary infiltrates. IMPRESSION: No evidence of acute thoracic spine pathology. No evidence of malignancy. Electronically signed by: Leidy Brooke MD 08/19/25 21:45 PM
[2025-08-20 06:53] LABS: Hematocrit (blood only) 31.2 % (37.0-47.0); Hemoglobin 9.5 g/dl (12.0-16.0); Mean Corpuscular Hemoglobin 28.4 pg (25.0-34.0); Mean Corpuscular Volume 93.1 fL (80.0-100.0); Platelet Count 211 K/uL (130-400); RDW Standard Deviation 53.1 fL (36.4-46.3); Red Blood Count 3.35 M/uL (4.20-5.40); White Blood Count 11.22 K/ul (4.8-10.8)
[2025-08-20 07:20] LABS: Anion Gap 5.0 (3-11); Blood Urea Nitrogen 15.0 mg/dl (6-23); Calcium 8.4 mg/dl (8.6-10.3); Carbon Dioxide 36.0 mmol/L (21-32); Chloride 97.0 mmol/L (98-107); Creatinine Clr Calc Pharmacy 95.8 ml/min; Glucose 95.0 mg/dl (70-99(Fasting)); Magnesium 2.0 mg/dl (1.7-2.4); Potassium 3.1 mmol/L (3.5-5.1); Sodium 138.0 mmol/L (136-145)
--- NOTE | 2025-08-20 08:42 | Hospitalist Progress Note ---
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 #Acute respiratory respiratory failure with hypoxia and hypercapnia #COPD exacerbation #Multifocal pneumonia #Sepsis (tachycardia, leukocytosis, RR 38) - admit to ICU for closer monitoring - interactive graphic designer consult placed , interactive graphic designer aware - CTA chest showing no PE but showing b/l pneumonia - s/p cont BiPAP - cont inhalers (breo, tiotropium) - solumedrol 40mg IV daily, change to prednisone 40mg daily for a total of 5 days of steroids (08/19 - 08/23) - MRSA neg, d/c Vanc - change zosyn to CTX and azithro to doxy for total of 5 days (through 08/23/25) - BCx pending - UA unremarkable - Biofire negative - Ur legionella antigen pending #Right sided weakness - overall resolved but has right wrist drop (?radial nerve palsy) - CT head negative - unremarkable CTA head - CTA neck showing moderate atherosclerotic plaque with 50% stenosis of the proximal b/l internal carotid arteries, no aneurysm or dissection within the neck - monitor neuro checks - PT / OT eval - MRI brain: no acute intracranial abnormality or evidence of malignancy - MRI C-spine: subtly enhancing intramedullary lesion at the level of C2-3, which may represent demyelinating disease or malignancy. critical spinal canal stenosis of C5-6, mild to mod facet arthropathy with mild to mod synovitis at the right C3-4 facet joint - MRI T-spine: no evidence of acute thoracic spine pathology - will request ortho eval #Acute metabolic encephalopathy - resolved - in the setting of hypoxia and hypercapnia as well as polypharmacy - IV hydration - monitor mental status - significantly improved #RIVKA - baseline Cr 0.6, on admission 1.6 - IV hydration with plasma lyte - avoid nephrotoxic agents and dose - trend Cr #HTN - resume amlodipine, cont to hold HCTZ #Restless Leg Syndrome - of note: some hx states pt had Parkinson's disease, however, per neurology note from 01/13/21 pt never had Parkinson's diagnosis. Sinemet was Rx-ed for RLS - sinemet resumed #Metastatic Small Cell Neuroendocrine tumor - diagnosed 08/2019 with resection of skull lesion, also noted to have T-spine lesions, hip - s/p palliative RT to spine and hip Jun 2023 #Chronic musculoskeletal pain - STABLEHAND methadone 25mg TID and oxycodone 10mg q4-6h prn along with gabapentin - resume methadone at 10mg po TID along with PRN oxycodone - gabapentin remains on hold, resume if mentation remains stable #Anxiety / Depression - resume duloxetine, lamotrigine #DVT ppx: hep subq #Dispo- pending clinical improvement , PT / OT recs rehab #Code status: Full code (per pt) Admission and Anticipated Discharge Date Admission Date: August 18, 2025 Review of Systems Review of Systems: Comprehensive ROS completed and is otherwise negative. Physical Exam Physical Exam: Gen: no acute distress, sitting in chair comfortable HEENT: NC/AT, MMM Lungs: no respiratory distress, diminished breath sounds at the bases CVS: s1s2nl, RRR Abd: nl bowel sounds, soft, NT / ND : no billingsley Ext: no edema , right wrist drop with weak calender worker helper and numbness over the thumb (otherwise unremarkable RUE exam) Neuro: awake, alert, communicating appropriately Psych: calm, cooperative Results & Data Results & Data Vital Signs (Past 12 Hours) Vital Signs Temp Pulse Pulse Pulse Resp BP BP 08/20/25 07:47 36.6 C 77 17 140/75 08/20/25 03:32 36.7 C 73 18 157/73 H 08/19/25 22:14 95 H 21 08/19/25 22:00 08/19/25 21:02 36.8 C 84 20 168/94 H 08/19/25 21:00 98 H Pulse Ox O2 Del Method O2 Flow Rate 08/20/25 07:47 93 Nasal Cannula 3 08/20/25 03:32 92 Nasal Cannula 3.0 08/19/25 22:14 95 3 08/19/25 22:00 Nasal Cannula, BiPAP 08/19/25 21:02 93 Nasal Cannula 2 08/19/25 21:00 PG Care Time/CCT Total # of Minutes Spent Total Time Spent with Patient: Total time spent is greater than 50% in coordination of care (as documented) at patient's floor/unit and/or counseling patient: Coding Level of Care Code 62395 SUB INP/OBS CARE 3/50MIN Diagnoses Acute exacerbation of chronic obstructive pulmonary disease J44.1 Acute encephalopathy G93.40 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
[2025-08-20] MEDS ORDERED: POTASSIUM PHOS 3 MMOL/1 ML INFUSION IV ONE (09:00)
[2025-08-20] MEDS: DOXYCYCLINE HYCLATE 100 MG CAP PO SCH (09:03)
[2025-08-20] MEDS: POTASSIUM PHOSPHATE 21 MMOL in SODIUM CHLORIDE 0.9% 500 ML IV ONE (09:03)
[2025-08-20] MEDS: POTASSIUM CHLORIDE CRTAB 20 MEQ TABCR PO ONE (10:19)
--- NOTE | 2025-08-20 11:55 | Electrocardiogram Report ---
Test Reason : Blood Pressure : */* mmHG Vent. Rate : 70 BPM Atrial Rate : 70 BPM P-R Int : 136 ms QRS Dur : 102 ms QT Int : 434 ms P-R-T Axes : 58 13 45 degrees QTcB Int : 468 ms Normal sinus rhythm Possible Left atrial enlargement Septal infarct (cited on or before 18-Aug-2025) Abnormal ECG When compared with ECG of 18-Aug-2025 09:01, Questionable change in initial forces of Septal leads Confirmed by Eulalio Porter ([id number]) on 08/20/2025 11:55:18 AM Referred By: REFERRED SELF Confirmed By: Eulalio Porter
[2025-08-20] MEDS: cefTRIAXone SODIUM 2,000 MG/50 ML BAG IV SCH (15:03)
[2025-08-21] MEDS: predniSONE 20 MG TAB PO SCH (08:42)
--- NOTE | 2025-08-21 11:01 | Orthopedic Consultation ---
Date of Consultation August 21, 2025 Assessment & Plan (1) Weakness generalized: MRI of the cervical spine available for review. He does demonstrate evidence of a lesion in the cervical cord posterior to see 2 C3. There is evidence of marked spondylosis at C5-6 C6-C7. There is at least moderate bilateral neuroforaminal disease. At this time her symptoms do have a radicular component with a shocklike pain however I am unable to elicit any positive signs with range of motion of her cervical spine. Her MRIs demonstrates moderate disease but not severe enough to precisely explain her daniel motor deficits. I do not see any need for surgical intervention at this time. Is not interested in any surgical invention. Regarding her pain we may consider consultation with pain management for some guidance on medical treatment. History of Present Illness Reason for Consultation: Acute weakness to the right upper extremity Attending Physician: Carolina Galeana MD History of Present Illness This is a very pleasant 74-year-old female with multiple medical issues including metastatic cancer. She is noting marked deficits with wrist extension of the right upper extremity. She is right-hand dominant. She denies any specific trauma fall or event. She describes shocklike symptoms that involve her upper arm extending below the elbow to the wrist. Left upper extremities asymptomatic. Allergies Allergy/AdvReac Type Severity Reaction Status Date / Time codeine Allergy Unknown itching Verified 06/22/25 07:34 Home Medications Medication Instructions Recorded Confirmed Type lamotrigine 25 mg tablet 50 mg PO HS 09/20/21 08/18/25 History duloxetine 60 mg capsule,delayed 60 mg PO QAM 04/24/23 08/18/25 History release duloxetine 30 mg capsule,delayed 30 mg PO QPM 09/08/23 08/18/25 History release gabapentin 300 mg capsule 300 mg PO TID 12/03/24 08/18/25 History methadone 10 mg tablet 20 mg PO TID 12/03/24 08/18/25 History methadone 5 mg tablet 5 mg PO TID 12/03/24 08/18/25 History omeprazole 20 mg tablet,delayed 20 mg PO QAM 12/03/24 08/18/25 History release cyanocobalamin (vitamin B-12) 1,000 mcg PO QAM 01/17/25 08/18/25 History 1,000 mcg capsule albuterol sulfate 90 mcg/actuation 2 puff inhalation Q6H PRN 03/15/25 08/18/25 Rx aerosol inhaler shortness of breath or wheezing #8.5 grams amlodipine 5 mg tablet 5 mg PO QAM 06/28/25 08/18/25 History aspirin 81 mg tablet,delayed 81 mg PO QAM 06/28/25 08/18/25 History release hydrochlorothiazide 12.5 mg capsule 12.5 mg PO QAM 06/28/25 08/18/25 History mirabegron 25 mg tablet,extended 25 mg PO QAM 06/28/25 08/18/25 History release 24 hr (Myrbetriq) oxycodone 10 mg tablet 10 mg PO .EVERY 4-6 HOURS PRN 06/28/25 08/18/25 History Breakthrough Pain quetiapine 300 mg tablet 300 mg PO HS 06/28/25 08/18/25 History budesonide-formoterol HFA 160 2 inh inhalation BID 1 month #10.2 06/29/25 08/18/25 Rx mcg-4.5 mcg/actuation aerosol grams inhaler (Symbicort) tiotropium bromide 2.5 2 inh inhalation DAILY 1 month #4 06/29/25 08/18/25 Rx mcg/actuation mist for inhalation grams (Spiriva Respimat) fluticasone propionate 50 2 spray intranasal DAILY PRN 07/20/25 08/18/25 Rx mcg/actuation nasal Allergy Symptoms #16 grams spray,suspension carbidopa 25 mg-levodopa 250 mg 1 tab PO BID #60 tabs 07/29/25 08/18/25 Rx tablet amlodipine 2.5 mg tablet 2.5 mg PO QAM #30 tabs 08/19/25 Rx Patient History Medical History Muscle weakness able to ambulate independently; when feeling weak uses motorized WC 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 bx 01/06/25; pathology nondiagnostic; per general surgery note 'likely SCC' Neuroendocrine tumor small cell neuroendocrine tumor; per heme/onc note 12/17/24, primarily located at posterior skull; s/p resection of lesions 2018 and 2020; also s/p chemo; developed spinal lesions and skeletal lesions which were tx with XRT; on palliative care currently Spinal stenosis RLS (restless legs syndrome) taking carbidopa/levodopa OAB (overactive bladder) Mixed anxiety and depressive disorder Hx of hyperlipidemia History of hypertension Hx of gastroesophageal reflux (GERD) no recent issues Emphysema lung COPD (chronic obstructive pulmonary disease) admitted [facility] 12/02-12/04/24; dx acute hypoxemic resp failure/COPD exacerbation Chronic headache hx, only prior to brain surgery, no recent issues Cervical spondylosis no limits w/ ROM 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 pylori infection hx Stomach ulcer hx, no recent issues Surgical History History of surgery (02/15/25) Right Lower Extremity Wide Local Excision of Squamous Cell Carcinoma, intermediate layered closure (Right) - Chi Mathew DO History of open reduction and internal fixation (ORIF) procedure right foot > hardware intact Hx of colonoscopy (2019) Status post right knee replacement S/P excision of lipoma History of spinal surgery LUMBAR FUSION H/O brain surgery 2 tumor removals: 2018 and 03/29/21: Resection of Occipital Subgaleal Lesion Dr. Curt Wen at [facility] H/O exploratory laparotomy (2019) History of anesthesia reaction PT STATES THAT SHE WOKE UP TWICE DURING PREVIOUS COLONOSCOPY AND WAS ADVISED TO ALERT STAFF OF THIS FOR FUTURE PROCEDURES. History of surgery REMOVAL OF RIGHT LABIA FOLLOWING DX OF VULVA CANCER Family History Mother , Passed Age 90's due to stroke Depression Hypertension Anxiety Stroke Sister Depression Hypertension Cerebral aneurysm Anxiety Father , in his mid to later 40s of an PR Hypertension Myocardial infarction Cardiac disorder Anxiety Lymphoma Cancer Other Family history non-contributory Has no children Denies family history of Ovarian cancer Prostate cancer Breast cancer Colorectal cancer Social History Smoking Status: Never smoker Tobacco Type: Cigarettes Age Started Using Tobacco: 20; Age Quit Using Tobacco: 20; packs per day: 0.25; Second Hand Exposure: No; Do You Dip or Chew Tobacco: No; Hx Alcohol Use: No Hx Substance Use: No Preferred Language: Ghanaian Communication Ability: Effective Visual Impairment: No Limitations Hearing Ability: Hard of Hearing Procedures Analyst Required: No Beliefs That Will Affect Care: None marital status: / Current Living Situation: Alone Current Living Situation Comment: Home with caregivers per patient current occupational status: disabled 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 [employer] How many Children do You have: 0 Other Information That Helps Us Care for You: No 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 She has marked deficits to right wrist extension. There is weakness to grasp. Her biceps triceps and deltoids are 4+/5. Left upper extremity is 4+ to 5/5 to testing. Sensory appears to be intact. He is nontender to palpation. Results & Data Vital Signs (Past 12 Hours) Vital Signs Temp Pulse Pulse Pulse Resp BP Pulse Ox 08/21/25 07:32 08/21/25 07:30 36.6 C 75 17 161/79 H 93 08/21/25 03:20 36.6 C 78 18 162/78 H 91 08/21/25 00:23 67 08/20/25 23:20 36.7 C 78 18 175/78 H 92 O2 Del Method O2 Flow Rate 08/21/25 07:32 Room Air 08/21/25 07:30 Nasal Cannula 3 08/21/25 03:20 Nasal Cannula 3 08/21/25 00:23 08/20/25 23:20 Room Air
--- NOTE | 2025-08-21 14:35 | Hospitalist Progress Note ---
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 #Acute respiratory respiratory failure with hypoxia and hypercapnia #COPD exacerbation #Multifocal pneumonia #Sepsis (tachycardia, leukocytosis, RR 38) - admit to ICU for closer monitoring - striper spray gun consult placed , striper spray gun aware - CTA chest showing no PE but showing b/l pneumonia - s/p cont BiPAP - cont inhalers (breo, tiotropium) - solumedrol 40mg IV daily, change to prednisone 40mg daily for a total of 5 days of steroids (08/19 - 08/23) - MRSA neg, d/c Vanc - change zosyn to CTX and azithro to doxy for total of 5 days (through 08/23/25) - BCx pending - UA unremarkable - Biofire negative - Ur legionella antigen pending #Right sided weakness - overall resolved but has right wrist drop (?radial nerve palsy) - CT head negative - unremarkable CTA head - CTA neck showing moderate atherosclerotic plaque with 50% stenosis of the proximal b/l internal carotid arteries, no aneurysm or dissection within the neck - monitor neuro checks - PT / OT eval on board - MRI brain: no acute intracranial abnormality or evidence of malignancy - MRI C-spine: subtly enhancing intramedullary lesion at the level of C2-3, which may represent demyelinating disease or malignancy. critical spinal canal stenosis of C5-6, mild to mod facet arthropathy with mild to mod synovitis at the right C3-4 facet joint - MRI T-spine: no evidence of acute thoracic spine pathology - ortho recs appreciated, stenosis appears more moderate rather than critical. pt not interested in surgery at this time - if symptoms worsening, consider neurology evaluation given the C2-3 lesion - wrist brace to be used at night and during the day, pt to do passive movements of the wrist, at rest, place the brace back on. #Acute metabolic encephalopathy - resolved - in the setting of hypoxia and hypercapnia as well as polypharmacy - IV hydration - monitor mental status - significantly improved #RIVKA - baseline Cr 0.6, on admission 1.6 - IV hydration with plasma lyte - avoid nephrotoxic agents and dose - trend Cr #Electrolyte abnormalities - hypokalemia / hypophosphatemia - replete and monitor #HTN - resume amlodipine, cont to hold HCTZ #Restless Leg Syndrome - of note: some hx states pt had Parkinson's disease, however, per neurology note from 01/13/21 pt never had Parkinson's diagnosis. Sinemet was Rx-ed for RLS - sinemet resumed #Metastatic Small Cell Neuroendocrine tumor - diagnosed 08/2019 with resection of skull lesion, also noted to have T-spine lesions, hip - s/p palliative RT to spine and hip Jun 2023 #Chronic musculoskeletal pain - WARPER CREELER methadone 25mg TID and oxycodone 10mg q4-6h prn along with gabapentin - resume methadone at 10mg po TID along with PRN oxycodone - gabapentin resumed #Anxiety / Depression - resume duloxetine, lamotrigine #DVT ppx: hep subq #Dispo- PT / OT recs rehab , awaiting palliative re-eval on Friday (for pain management) #Code status: Full code (per pt) Admission and Anticipated Discharge Date Admission Date: August 18, 2025 Subjective No acute events overnight Currently states that her right wrist drop is improving Review of Systems Review of Systems: Comprehensive ROS completed and is otherwise negative. Physical Exam Physical Exam: Gen: no acute distress, sitting in chair comfortable HEENT: NC/AT, MMM Lungs: no respiratory distress, diminished breath sounds at the bases CVS: s1s2nl, RRR Abd: nl bowel sounds, soft, NT / ND : no billingsley Ext: no edema , right wrist drop with weak bone glue maker and numbness over the thumb (otherwise unremarkable RUE exam) Neuro: awake, alert, communicating appropriately Psych: calm, cooperative Results & Data Results & Data Vital Signs (Past 12 Hours) Vital Signs Temp Pulse Pulse Resp BP Pulse Ox O2 Del Method 08/21/25 11:24 36.5 C 78 18 161/84 H 94 Room Air 08/21/25 07:32 Room Air 08/21/25 07:30 36.6 C 75 17 161/79 H 93 Nasal Cannula 08/21/25 03:20 36.6 C 78 18 162/78 H 91 Nasal Cannula O2 Flow Rate 08/21/25 11:24 08/21/25 07:32 08/21/25 07:30 3 08/21/25 03:20 3 PG Care Time/CCT Total # of Minutes Spent Total Time Spent with Patient: Total time spent is greater than 50% in coordination of care (as documented) at patient's floor/unit and/or counseling patient: Coding Level of Care Code 51836 SUB INP/OBS CARE 3/50MIN Diagnoses Acute exacerbation of chronic obstructive pulmonary disease J44.1 Acute encephalopathy G93.40 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
[2025-08-21] MEDS: GABAPENTIN 300 MG CAP PO SCH (20:27)
[2025-08-22 07:14] LABS: Hematocrit (blood only) 35.8 % (37.0-47.0); Hemoglobin 11.4 g/dl (12.0-16.0); Immature Granulocytes # (auto) 0.09 K/uL (0.01-0.20); Immature Granulocytes % (auto) 1.5 %; Mean Corpuscular Hemoglobin 28.7 pg (25.0-34.0); Mean Corpuscular Volume 90.2 fL (80.0-100.0); Platelet Count 241 K/uL (130-400); RDW Standard Deviation 50.7 fL (36.4-46.3); Red Blood Count 3.97 M/uL (4.20-5.40); White Blood Count 6.14 K/ul (4.8-10.8)
[2025-08-22 07:35] LABS: Anion Gap 9.0 (3-11); Blood Urea Nitrogen 14.0 mg/dl (6-23); Calcium 9.0 mg/dl (8.6-10.3); Carbon Dioxide 29.0 mmol/L (21-32); Chloride 99.0 mmol/L (98-107); Creatinine Clr Calc Pharmacy 91.0 ml/min; Glucose 85.0 mg/dl (70-99(Fasting)); Magnesium 1.6 mg/dl (1.7-2.4); Potassium 3.5 mmol/L (3.5-5.1); Sodium 137.0 mmol/L (136-145)
[2025-08-22] MEDS: MAGNESIUM SULFATE / D5W 1 GM/100 ML BAG IV SCH (09:38)
[2025-08-22 10:53] VITALS: RESP 20; TEMP 97.9; O2SAT 92
--- NOTE | 2025-08-22 11:08 | Palliative Care Progress Note ---
Date of Service August 22, 2025 Assessment & Plan (1) Cancer related pain: Plan: Today: pain well managed, pt requests no changes in regime at this time. Continue: Methadone HCl 10 mg PO TID DENISA Oxycodone HCl 10 mg PO Q4H PRN for BTP 08/19: Pt c/o chronic "all over" pain she attributes to her cancer and cancer treatments. She states the most bothersome pain is in her neck, posterior chest and thoracic spine. She shared that her pain has been well managed prior to this admission and she is taking all medications as prescribed. She shared concern that the medications may have caused her to be confused and does not wish to be on the same doses if she does not need them. Discussed that her methadone dose has been consistent for several months and unlikely to cause an acute change in MS. She shared that her pain is currently a 8::10, and she does wish for omproved pain mgmt, but resistent to taking 25mg methadone at this time. We discussed plan for 10mg methadone TID with continued PRN oxyIR for BTP. Pt agreeable. Pt follows with [facility] for pain/symptom management with oncology team, discussed plan with her as well. (2) Weakness generalized: (3) Chemotherapy-induced neuropathy: Plan: Pt unclear if she had been taking her gabapentin regularly. Continue: Gabapentin (Gabapentin 300 Mg Cap) 300 mg PO TID DENISA (4) Counseling regarding goals of care: Plan: Met with pt and discussed goals of care for 30 minutes. Pt's psych porter sample case was present at bedside today. We discussed at length the patient's acute and chronic medical conditions, general prognosis, treatment options, and goals of care. Discussed feasibility of attending rehab. Discussed what goals/wishes wou ld be if rehab goes poorly. Pt shared that she has decided that she does not wish to pursue any further cancer directed treatments and she would like to return home with hospice care. She shared that she is hopeful to optimize her strength with PT/OT prior to transition to comfort directed care. Discussed code status and helped Patricia understand that CPR is only done after a person has and involves uncomfortable and invasive procedures that, if successful. have high risk of multiple complications including but not limited to rib fractures, pneumo/hemothorax, RIVKA, ventilator dependence, anoxic brain injury, and termite treater helper/permanent cognitive and functional deficits. CPR survival: Only about 10% of patients who have [id number] sudden cardiac arrest survive to hospital discharge, with many survivors having neurologic impairment. This rate is even lower among patients with serious coexisting conditions, ie chance of survival to hospital discharge for in- hospital CPR in older people is low to moderate (15%) and decreases with age, comorbidities, performance status and frailty: for pts > 70 yo, more than half of the patients who initially survived resuscitation in the hospital before hospital discharge. The pooled survival to discharge after in-hospital CPR was 18% for patients between 70 and 79 years old, 15% for patients between 80 and 89 years old and 11% for patients of 90 years and older. (Santiago BRUCEY, Javier LJ, Becky F, et al. Trends in short- and long-term survival among [id number] cardiac arrest patients alive at hospital arrival. Circulation 2014;130:1883- 1890. AND Jhonny C, Francisco T, Antoni R, et al. Performance of clinical risk scores to predict mortality and neurological outcome in cardiac arrest patients. Resuscitation 2019;136:21-29.) Discussed hospice benefit: an interdisciplinary program offered by nurses, nurses aides, social workers, chaplains and a medical technical writer for patients with a terminal condition and a life expectancy of less than 6 months. This is covered by Medicare at 100%/no out of pocket expense to patient and all meds/supplies needed by patient for the reason they are on hospice are paid for/covered by hospice. The goal is assure quality of life of the patient in their home setting (home, [place] [facility], inpatient hospice setting) by providing symptoms management, psychosocial and spiritual support. However, they cannot offer 24 hours care and if the family is unable to provide that care, they will have to consider personal care with out of pocket cost vs. [place] [facility] placement. We discussed the goals of hospice as a patient service and the goals of care; we discussed EOL trajectories and transitions memo the emotional impact of realizing mortality as a concrete reality from prior abstract considerations. Pt was reassured that no matter where they are along this trajectory, they are not alone - their medical team will remain by their side through their journey. Discussed the pros/cons of accepting help when especially weakened and distressed by pain-which would also help provide relief/decrease caregiver burden/strain. Pt clarified that she would like code status changed to DNR/DNI, she would like discharge to [facility] to optimize her strength and functional independence prior to discharge home with hospice care. POLST form completed with pt to reflect these wishes. Plan as above. Admission and Anticipated Discharge Date Admission Date: August 18, 2025 Subjective Assessed pt at bedside, no visitors present. NAD on RA, CAROL[place]. Pt shared that pain well managed and she has had minimal breakthrough pain. Review of Systems Review of Systems: All systems reviewed & are unremarkable except as noted in Subjective Physical Exam Constitutional: WD/WN, vitals as above no acute distress Respiratory: normal respiratory effort, lungs clear to auscultation Cardiovascular: Rate/Rhythm: regular rate and regular rhythm Extremities: + edema (+1 bilat LE's) Skin: no rashes, warm and dry Neurologic: moves all extremities Psychiatric: A+Ox3, euthymic affect Results & Data Vital Signs (Past 12 Hours) Vital Signs Temp Pulse Pulse Resp BP Pulse Ox O2 Del Method 08/22/25 10:52 36.6 C 84 20 128/68 92 Nasal Cannula 08/22/25 09:41 Room Air 08/22/25 07:23 36.7 C 87 19 154/74 H 90 Room Air 08/22/25 03:11 36.7 C 71 18 165/80 H 93 Room Air O2 Flow Rate 08/22/25 10:52 1 08/22/25 09:41 08/22/25 07:23 08/22/25 03:11 Laboratory Results Abnormal lab results 08/22/25 Range/Units 05:45 RBC 3.97 L (4.20-5.40) M/uL Hgb 11.4 L (12.0-16.0) g/dl Hct 35.8 L (37.0-47.0) % MCHC 31.8 L (32.0-36.0) g/dL RDW Std Deviation 50.7 H (36.4-46.3) fL RDW Coeff of Ginger 15.5 H (11.5-14.5) % MPV 9.3 L (9.4-12.4) fL Lymph # (Auto) 0.75 L (1.20-3.40) K/uL Creatinine 0.57 L (0.6-1.2) mg/dl BUN/Creatinine Ratio 24.6 H (10-20) Magnesium 1.6 L (1.7-2.4) mg/dl Diagnostic Findings Abdomen/Pelvis CT 08/18/25 09:00 CT SCAN OF THE ABDOMEN AND PELVIS WITH IV CONTRAST CLINICAL HISTORY: Fall. Weakness. COMPARISON STUDY: CT of the abdomen and pelvis July 19, 2025. TECHNIQUE: Following the IV administration of 112 cc of Optiray 320, CT scan of the abdomen and pelvis is performed from the lung bases to the proximal femora. Images are reviewed in the axial, sagittal, and coronal planes. IV contrast was administered without complication. A dose lowering technique was utilized adhering to the principles of ALARA. CT DOSE: 1803.68 mGy.cm FINDINGS: Extensive bilateral lower lobe alveolar opacities have developed since CT of July 19, 2025. These are better depicted on the same day chest CT which will be reported separately. No hemoperitoneum or pneumoperitoneum is present. No evidence for traumatic injury to the solid abdominal viscera. Mild dilatation of the common bile duct is unchanged. There are no hepatic lesions. There is hepatic steatosis. Sensitivity for detection of renal calculi diminished given excreted contrast. There is no evidence for a bowel obstruction. There is a moderate amount of stool within the colon. There is no lymphadenopathy. No fluid collections are present. Postoperative findings within the lumbosacral spine are again noted. There are no acute fractures within the lumbar spine, pelvis or hips. IMPRESSION: 1. No acute traumatic findings within the abdomen or pelvis. 2. Interval development of extensive bilateral lower lobe alveolar opacities since CT of July 19, 2025. The findings suggest pneumonia or aspiration pneumonitis, better depicted on the chest CT which will be reported separately. ACT 112: Negative or not required by law. Electronically signed by: Daryl Keita M.D. 08/18/2025 11:00 AM Chest CTA 08/18/25 09:00 CT angio chest PE protocol CT DOSE: 1443.02 mGy.cm HISTORY: hypoxic, fall, MURILLO, R weak. TECHNIQUE: Multiple CTA images of the chest were obtained after the intravenous administration of 112 ml Optiray. Coronal and sagittal MIPS were obtained from the axial data set and were submitted for review. All measurements were o btained according to NASCET criteria. A dose lowering technique was utilized adhering to the principles of ALARA. COMPARISON STUDY: 07/19/2025 FINDINGS: There is motion artifact due to difficulty breath holding. There are mild airway secretions. There is interval scattered areas of patchy consolidation most prominent at the lung bases, consistent with acute pneumonia. There is no pleural effusion or pneumothorax. Stable left hilar mass measuring 3 cm. No pericardial effusion. There are diffuse coronary artery calcifications. No thoracic aortic dissection or aneurysm seen. Evaluation of the tiny distal pulmonary arterial branches is limited by motion. No pulmonary embolism seen. There are moderate thoracic spine degenerative changes. No acute osseous findings. IMPRESSION: 1. No pulmonary embolism seen. 2. Bilateral pneumonia. Recommend follow-up chest CT in 3 months to make sure this resolves without underlying pulmonary nodule. 3. Otherwise as described. ACT 112: Positive. There are findings on this exam that require communication between the performing entity and the patient following Patient Test Result Information Act ([place] Act 112) guidelines. The above report was generated using voice recognition software. It may contain grammatical, syntax or spelling errors. Electronically signed by: Shoaib Bah M.D. 08/18/2025 11:21 AM Chest X-Ray 08/18/25 09:00 XR chest 1V portable CLINICAL HISTORY: weakness, fall COMPARISON STUDY: 06/28/2025 FINDINGS: Stable mild cardiomegaly with mild pulmonary vascular congestion. There are interval faint patchy opacities at the mid and lower lungs. No pleural effusion or pneumothorax. IMPRESSION: Early bilateral pneumonia. ACT 112: Negative or not required by law. Electronically signed by: Shoaib Bah M.D. 08/18/2025 11:[address] 08/18/25 09:00 CT head/brain wo con CLINICAL HISTORY: fall, MURILLO, R weak. TECHNIQUE: Multiple axial CT images of the head were obtained without contrast. A dose lowering technique was utilized adhering to the principles of ALARA. COMPARISON: 06/28/2025 FINDINGS: No intracranial hemorrhage seen. No mass effect, midline shift, or hydrocephalus. No skull fracture seen. Visualized paranasal sinuses and mastoid air cells are clear. Stable small right parieto-occipital craniotomy. IMPRESSION: No acute findings. ACT 112: Negative or not required by law. The above report was generated using voice recognition software. It may contain grammatical, syntax or spelling errors. Electronically signed by: Shoaib Bah M.D. 08/18/2025 10:27 AM Head CTA 08/18/25 09:00 CT angio head w con CLINICAL HISTORY: 74 years-old Female with fall, MURILLO, R weak. Acute headache with right-sided weakness/stroke like symptoms COMPARISON STUDY: Head CT of same day and also 06/17/2025, CTA head 08/07/2018. TECHNIQUE: Following the IV administration of 112 cc of Optiray, CT angiogram of the brain was performed from the skull base to the vertex. Images are reviewed in the axial, sagittal, and coronal planes. 3-D MIPS images are created and assessed. IV contrast was administered without complication. All measurements were obtained according to NASCET criteria. A dose lowering technique was utilized adhering to the principles of ALARA. FINDINGS: Motion degraded exam. CT BRAIN: Dictated separately. Involutional changes with chronic microvascular ischemic disease. Right occipital craniectomy changes are present. CT ANGIOGRAM OF THE BRAIN: The imaged bilateral internal carotid arteries are patent. The bilateral anterior and middle cerebral arteries are also patent. The vertebrobasilar system and posterior cerebral arteries are widely patent. There is no aneurysm, high-grade stenosis, or proximal branch occlusion identified. Dural sinuses appear patent. Mild dilation of the superior ophthalmic veins, of doubtful clinical significance. IMPRESSION: Unremarkable CTA of the head. ACT 112: Negative or not required by law. The above report was generated using voice recognition software. It may contain grammatical, syntax or spelling errors. Electronically signed by: Kervin Chaudhari M.D. 08/18/2025 10:36 AM Neck CTA 08/18/25 09:00 CT ANGIOGRAPHY OF THE NECK WITH CONTRAST CLINICAL HISTORY: Fall. Headache. Right-sided weakness. COMPARISON STUDY: Cervical spine CT June 28, 2025. Carotid ultrasound November 04, 2011. Technique: CT angiography of the carotid and vertebral arteries was obtained using Optiray and 3D reconstruction on an independent workstation. NASCET criteria was utilized. Automated exposure control was utilized for the study. A dose lowering technique was utilized adhering to the principles of ALARA. Findings: Visualized portions of the lung apices demonstrate scattered alveolar opacities within the right upper lobe, new since cervical spine CT of June 28, 2025. There is underlying emphysema. The findings are better depicted on the chest CT which will be reported separately. No acute cervical spine fractures are noted. Mild loss of height of the inferior endplate of C4 is unchanged. Mixed lucent and sclerotic appearance of the C4 vertebral body remains indeterminate. This is unchanged. The left vertebral artery is dominant. The right vertebral artery is somewhat diminutive on a congenital basis. There is moderate atherosclerotic plaque within the proximal bilateral internal carotid arteries. This results in 50% stenosis of the proximal bilateral internal carotid arteries. IMPRESSION: 1. Moderate atherosclerotic plaque which results in 50% stenosis of the proximal bilateral internal carotid arteries. 2. No aneurysm or dissection within the neck. 3. Right upper lobe alveolar opacities better depicted on the chest CT. These suggest pneumonia or aspiration pneumonitis. ACT 112: Negative or not required by law. Electronically signed by: Daryl Keita M.D. 08/18/2025 10:54 AM Brain MRI 08/19/25 13:55 Exam(s): MRI HEAD W/WO Contrast EXAM: MR Head Without and With Intravenous Contrast CLINICAL HISTORY: Reason for exam: right hand weakness, h/o malignancy. TECHNIQUE: Magnetic resonance images of the head/brain without and with intravenous contrast in multiple planes. CONTRAST: Contrast must be dictated COMPARISON: Prior head CT from June 28, 2025. FINDINGS: Brain: Mild nonspecific white matter changes. The flow voids at the base the brain are intact. No mass. No hemorrhage. No acute infarct. No evidence of abnormal enhancement. The dural venous sinuses are patent. Ventricles: Mild ventriculomegaly. Bones/joints: Remote right posterior craniotomy. No acute fracture. Sinuses: Unremarkable as visualized. No acute sinusitis. Mastoid air cells: Unremarkable as visualized. No mastoid effusion. Orbits: Unremarkable as visualized. IMPRESSION: No evidence of acute intracranial pathology. No evidence of neoplasm. Electronically signed by: Leidy Brooke MD 08/19/25 21:18 PM Cervical Spine MRI 08/19/25 13:55 Exam(s): MRI C SPINE EXAM: MR Cervical Spine Without Intravenous Contrast CLINICAL HISTORY: Reason for exam: h/o malignancy. TECHNIQUE: Magnetic resonance images of the cervical spine without intravenous contrast in multiple planes. COMPARISON: Prior CT scan of the cervical spine from May 25, 2007. FINDINGS: This study is limited secondary to motion artifact. Vertebrae: There are 7 cervical type vertebral bodies with straightening normal cervical lordosis. No acute fracture. There is a critical spinal canal stenosis at C5-6. Mild to moderate facet arthropathy with mild to moderate synovitis, most significant at the right C3-4 facet joint. Spinal cord: There is a small mildly enhancing intramedullary lesion in the cervical cord at the level of C2-3 measuring 8.1 x 5.2 x 3.6 mm. There is flattening the ventral cord at C5-6 without evidence of abnormal cord signal. Soft tissues: The cervical flow voids are intact. IMPRESSION: There is a subtly enhancing intramedullary lesion at the level C2-3, which may represent demyelinating disease or malignancy. Electronically signed by: Leidy Brooke MD 08/19/25 21:41 PM Thoracic Spine MRI 08/19/25 13:55 Exam(s): MRI T SPINE W/WO Contrast EXAM: MR Thoracic Spine Without and With Intravenous Contrast CLINICAL HISTORY: Reason for exam: h/o malignancy. TECHNIQUE: Magnetic resonance images of the thoracic spine without and with intravenous contrast in multiple planes. CONTRAST: Contrast must be dictated COMPARISON: Prior CT chest from 06-29-2012. FINDINGS: This study is limited secondary to motion artifact. Vertebrae: There are 12 thoracic type vertebral bodies with a mild dextroscoliosis and normal thoracic kyphosis. There is mild wedging of the T11 vertebral body, which is likely physiologic. Otherwise, there is normal vertebral body height and alignment. The bone mesial is heterogeneous with reactive endplate changes. No acute fracture. Discs/spinal canal/neural foramina: No acute findings. No significant disc disease. No spinal canal stenosis. Spinal cord: Unremarkable. Normal signal. No abnormal enhancement. Soft tissues: Multiple pulmonary infiltrates. IMPRESSION: No evidence of acute thoracic spine pathology. No evidence of malignancy. Electronically signed by: Leidy Brooke MD 08/19/25 21:45 PM Medications Administered Current Inpatient Medications Albuterol (Albuterol 0.083% Nebu Soln 3 Ml Vial) 2.5 mg NEB Q6H PRN; Protocol PRN Reason: Shortness Of Breath Or Wheezing Stop: 09/17/25 14:25 Amlodipine Besylate (Amlodipine Besylate 5 Mg Tab) 5 mg PO QAM DENISA Stop: 09/19/25 16:29 Last Admin: 08/22/25 09:04 Dose: 5 mg Carbidopa/Levodopa (Carbidopa/Levodopa 25-250 1 Ea Tab) 1 tab PO BID DENISA Stop: 09/18/25 20:59 Last Admin: 08/22/25 09:03 Dose: 1 tab Doxycycline Hyclate (Doxycycline Hyclate 100 Mg Cap) 100 mg PO BID DENISA Stop: 08/23/25 21:01 Last Admin: 08/22/25 09:05 Dose: 100 mg Duloxetine HCl (Duloxetine Hcl 60 Mg Cap) 60 mg PO QAM DENISA Stop: 09/19/25 08:59 Last Admin: 08/22/25 09:04 Dose: 60 mg Duloxetine HCl (Duloxetine Hcl 30 Mg Cap) 30 mg PO QPM DENISA Stop: 09/18/25 20:59 Last Admin: 08/21/25 20:27 Dose: 30 mg Fluticasone/Vilanterol (Fluticasone/Vilanterol 200/25mcg 14 Puffs/Inhaler) 1 puffs INH DAILY [facility]; Protocol Stop: 09/18/25 08:59 Last Admin: 08/22/25 09:01 Dose: 1 puffs Gabapentin (Gabapentin 300 Mg Cap) 300 mg PO TID DENISA Stop: 09/20/25 20:59 Last Admin: 08/22/25 09:03 Dose: 300 mg Heparin Sodium (Porcine) (Heparin Sod 5,000 Unit/0.5 Ml Vial) 5,000 units SQ Q12 DENISA Stop: 09/17/25 20:59 Last Admin: 08/22/25 09:03 Dose: 5,000 units Ceftriaxone Sodium (Rocephin) 2,000 mg in 50 mls @ 100 mls/hr IV Q24H [facility] Stop: 08/24/25 13:59 Last Infusion: 08/21/25 15:42 Dose: Infused Magnesium Sulfate/Dextrose (Magnesium Sulfate / D5w) 1 gm in 100 mls @ 50 mls/hr IV Q2H DENISA Stop: 08/22/25 13:14 Last Admin: 08/22/25 09:38 Dose: 50 mls/hr Lamotrigine (Lamotrigine 25 Mg Tab) 50 mg PO HS [facility]; Protocol Stop: 09/18/25 20:59 Last Admin: 08/21/25 20:27 Dose: 50 mg Methadone HCl (Methadone Hcl 10 Mg Tab) 10 mg PO TID [facility] Stop: 09/02/25 13:59 Last Admin: 08/22/25 09:14 Dose: 10 mg Ondansetron HCl (Ondansetron Inj 2 Mg/Ml 2 Ml Vial) 4 mg IV Q6H PRN PRN Reason: Nausea Stop: 09/17/25 16:18 Oxycodone HCl (Oxycodone Hcl Ir 5 Mg Tab (Immediate Release)) 10 mg PO Q4H PRN PRN Reason: Mod-Sev Pain (Scale 4-10) Stop: 09/02/25 13:58 Prednisone (Prednisone 20 Mg Tab) 40 mg PO QAM DENISA Stop: 08/23/25 09:01 Last Admin: 08/22/25 09:03 Dose: 40 mg Umeclidinium Cromwell (Umeclidinium [place]well 62.5mcg/Blister 7 Puffs/Inhaler) 1 puffs INH DAILY DENISA Stop: 09/18/25 08:59 Last Admin: 08/22/25 09:01 Dose: 1 puffs PG Care Time/CCT Total # of Minutes Spent Total Time Spent with Patient: Total time spent is greater than 50% in coordination of care (as documented) at patient's floor/unit and/or counseling patient: Advanced Care Planning 63343 Advanced Care Planning 30 Min C[place] [address] SUB INP/OBS CARE 3/50MIN Patient Type Established History Expanded Problem Focused Exam Expanded Problem Focused Medical Decision Making Moderate Complexity Diagnoses Cancer related pain G89.3 Weakness generalized R53.1 Chemotherapy-induced neuropathy G62.0; T45.1X5A Counseling regarding goals of care Z71.89 Additional Codes Advanced Care Planning - 34398 Advanced Care Planning 30 Min: 46580 Advanced Care Planning 30 Min ([id number])
--- NOTE | 2025-08-22 13:07 | Discharge Summary ---
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 for the evalu ation of right sided weakness, but was noted to become unresponsive and have respiratory failure requiring BiPAP. #Acute respiratory respiratory failure with hypoxia and hypercapnia #COPD exacerbation #Multifocal pneumonia #Sepsis (tachycardia, leukocytosis, RR 38)- admitted to ICU for closer monitoring, placed on BiPAP and weaned off. CTA chest showing no PE but showing b/l pneumonia. She was treated with steroids and bronchodilators, as well as antibiotics for pneumonia. Blood cultures remain no growth to date, respiratory BioFire was negative, UA unremarkable, and urine Legionella antigen was still pending at the time of discharge - Finish out 1 more day of prednisone, cefdinir, and doxycycline for pneumonia - Should have repeat chest imaging in 4 to 6 weeks to ensure clearance of pneumonia -Patient's watch inspector final movement told palliative medicine that she has witnessed the patient taking likely excessive amounts of her methadone at 1 time at home which would explain why her lethargy responded to Narcan in the ED. - Patient's plan is eventual transition to hospice likely after strengthening at rehab #Right sided weakness - overall resolved but has right wrist drop possibly secondary to cervical cord lesion versus cervical radiculopathy. Seen by orthopedic spine surgery. MRI of the cervical spine showed subtly enhancing intramedullary lesion at the level of C2-3 which may represent demyelinating disease or malignancy. She also had critical spinal stenosis at C5-C6, and synovitis at C3-C4. Orthopedic spine surgery did not think it was critical stenosis and recommended neurology follow-up for the C2-C3 lesion. Patient did not desire any surgical intervention on her neck. MRI of the T-spine was negative. CT of the head was negative, and MRI of the brain was negative for stroke. - wrist brace to be used at night and during the day, pt to do passive movements of the wrist, at rest, place the brace back on. #Acute metabolic encephalopathy - resolved - in the setting of hypoxia and hypercapnia as well as polypharmacy-possible unintentional methadone overdose - IV hydration and Narcan was given - Held home Seroquel and would not restart this on discharge at a high dose - monitor mental status - significantly improved #RIVKA - baseline Cr 0.6, on admission 1.6, now back to normal after IV fluids - Discontinue home HCTZ #Electrolyte abnormalities - hypokalemia / hypophosphatemia -repleted and normalized #HTN - Blood pressure is now normal - Continue home amlodipine, but discontinue home HCTZ #Restless Leg Syndrome - of note: some hx states pt had Parkinson's disease, however, per neurology note from 01/13/21 pt never had Parkinson's diagnosis. Sinemet was Rx-ed for RLS - sinemet continue #Metastatic Small Cell Neuroendocrine tumor - diagnosed 08/2019 with resection of skull lesion, also noted to have T-spine lesions, hip - s/p palliative RT to spine and hip Jun 2023 - Patient considering enrolling in hospice after discharge to home from rehab #Chronic musculoskeletal pain - [employer] methadone 25mg TID and oxycodone 10mg q4-6h prn along with gabapentin-now decreased methadone dose to 10 mg p.o. 3 times daily with palliative medicine -Continue gabapentin and follow-up with palliative as an outpatient #Anxiety / Depression - Continue duloxetine, lamotrigine, but discontinued Seroquel 300 mg at bedtime given severe lethargy #DVT ppx: hep subq #Dispo- PT / OT recs rehab , stable for discharge to [facility] rehab Palliative medicine to fill out POLST form with patient prior to discharge- patient wishes to be a DNR/DNI Notes For Next Care Provider Medication Changes From Visit Decrease methadone to 10 mg p.o. 3 times daily Discontinued Seroquel Discontinued HCTZ Admission HPI Per Admitting Provider 74 yr old F with PMHx of COPD, HTN, neuroendocrine tumor mets to bone, anxiety/depression, HLD, GERD, RLS brought to [facility] for the evaluation of right sided weakness. History obtained from chart and discussion with ED team as pt is currently a poor history. Pt reported earlier that she was trying to get up to go to the bathroom and noted that she has increased right sided weakness. She was brought in for evaluation of stroke. Stroke workup was negative, however, she was noted to have multifocal pneumonia and hospitalist consulted for admission. Pt was awake and alert on admission, however, she then became severely lethargic and unresponsive. She was placed on BiPAP for respiratory distress and Narcan given for lethargy. With Narcan, her mentation improved, however she is increasingly restless leading to receiving lorazepam. Discharge Exam Constitutional WD/WN, vitals as above Eyes PERRL, conjunctivae normal, anicteric sclerae ENMT external ear and nose normal, oropharynx normal Neck trachea midline, no thyromegaly Respiratory normal respiratory effort, lungs clear to auscultation Cardiovascular RRR, no murmur, no edema Chest (Breasts) Chest: normal inspection of chest Gastrointestinal (Abdomen) normal bowel sounds, soft, nontender, no hepatosplenomegaly Musculoskeletal Extremities: extremities normal to inspection; no cyanosis and no clubbing Skin no rashes, warm and dry Neurologic + focal motor deficit (Right wrist 0/5 strength dorsiflexion) and awake Psychiatric A+Ox3, euthymic affect Lymphatic no lymphedema Discharge Plan Discharge Items Patient Disposition: Transfer Inpatient Rehab Fac Reason For Visit: ACUTE RESPIRATORY DISTRESS Discharge Diagnosis: Acute respiratory failure with hypoxemia and hypercapnia COPD exacerbation Sepsis with pneumonia Cervical spine stenosis with right wrist drop Acute metabolic encephalopathy Acute kidney injury Hypokalemia, hypophosphatemia Metastatic small cell neuroendocrine tumor Condition on Discharge: Good Activity: As commented below Lifting: Gradually increase as tolerated Bathing: No limitations Exercise/Sports: Gradually increase as tolerated Exercise Comment: With PT/OT Non-emergency contact: Primary Care Provider Call non-emergency contact if: you have any medication questions and your symptoms worsen Follow-up/Referrals: Yelena Keita MD [Primary Care Provider] - Diet: Heart Healthy Addtl Attending Provider Instructions: Please finish out 1 more day of antibiotics for your pneumonia with cefdinir and doxycycline with last dose on 08/23. Please finish out 1 more day of steroids with prednisone for your COPD exacerbation. You should have follow-up chest imaging in 4 to 6 weeks to ensure resolution of pneumonia. For your right wrist weakness, you had an MRI of the brain which was negative for stroke. This could be coming from the issues found on the MRI of your cervical spine. You were seen by the orthopedic spine surgeon who did not recommend surgery and recommended following up with neurology for the lesions seen in the C2-C3 region of the spinal cord as an outpatient. Please continue to wear the wrist brace and do passive movements of the wrist at rest. Your methadone dose was decreased to 10 mg 3 times a day by the palliative medi cine provider due to you being overly sedated on arrival with a higher dose of methadone. Your Seroquel/quetiapine was discontinued due to your excessive sedation. You also had dehydration and the hydrochlorothiazide was discontinued. Pending Studies at Discharge: Yes (Legionella antigen, final blood cultures) Stand-Alone Forms: My [facility] [address] Skilled Items Patient informed of condition?: Yes DNR: No Discharge Level of Care: Acute rehab Communicable Disease: No Discharge Prognosis: Improving Lines: None Urinary Catheter: No Medications and DC Order Prescriptions: New doxycycline hyclate 100 mg Capsule 100 mg PO BID Qty: 3 0RF prednisone 20 mg Tablet 40 mg PO QAM Qty: 2 0RF cefdinir 300 mg capsule 300 mg PO BID Qty: 3 0RF methadone 10 mg Tablet 10 mg PO TID Qty: 30 0RF Continued albuterol sulfate 90 mcg/actuation HFA aerosol inhaler 2 puff inhalation Q6H PRN (Reason: shortness of breath or wheezing) Qty: 8.5 5RF fluticasone propionate 50 mcg/actuation spray,suspension 2 spray intranasal DAILY PRN (Reason: Allergy Symptoms) Qty: 16 11RF Rx Instructions: USE 2 SPRAYS INTO EACH NOSTRIL DAILY NEEDED FOR ALLERGY SYMPTOMS. carbidopa-levodopa 25-250 mg tablet 1 tab PO BID Qty: 60 5RF amlodipine 2.5 mg tablet 2.5 mg PO QAM Qty: 30 5RF Rx Instructions: Take together with 5 mg tab for TDD 7.5 mg lamotrigine 25 mg tablet 50 mg PO HS duloxetine 30 mg capsule,delayed release(DR/EC) 30 mg PO QPM duloxetine 60 mg capsule,delayed release(DR/EC) 60 mg PO QAM gabapentin 300 mg capsule 300 mg PO TID omeprazole 20 mg tablet,delayed release (DR/EC) 20 mg PO QAM cyanocobalamin (vitamin B-12) 1,000 mcg capsule 1,000 mcg PO QAM oxycodone 10 mg tablet 10 mg PO .EVERY 4-6 HOURS PRN (Reason: Breakthrough Pain) amlodipine 5 mg tablet 5 mg PO QAM Rx Instructions: take with the Amlodipine 2.5 mg to make daily dose of 7.5 mg. mirabegron [Myrbetriq] 25 mg tablet extended release 24 hr 25 mg PO QAM aspirin 81 mg tablet,delayed release (DR/EC) 81 mg PO QAM budesonide-formoterol [Symbicort] 160-4.5 mcg/actuation HFA aerosol inhaler 2 inh inhalation BID 30 Days Qty: 10.2 1RF Spiriva Respimat 2.5 mcg/actuation mist 2 inh inhalation DAILY 30 Days Qty: 4 1RF Discontinued methadone 10 mg tablet 20 mg PO TID Rx Instructions: TAKE WITH 5 MG = 25 MG TOTAL 3 times a day methadone 5 mg tablet 5 mg PO TID quetiapine 300 mg tablet 300 mg PO HS hydrochlorothiazide 12.5 mg capsule 12.5 mg PO QAM Rx Instructions: new order..has not started yet Discharge Orders: Discharge Order (Routine); Ordered 08/22/25 Ordered By: Odessa Hough Admission Data Admit Date/Time: 08/18/25 14:06 Attending Provider: Odessa Hough Admit Provider: Carolina Galeana Primary Care Provider: Yelena Keita Other Providers: Carolina Galeana; Judson Vargas; Jayna Phelps; [facility]; Judson Hawkins Other Interventions: Discharge Summary Assessment (RN) Last Done: 08/22/25 13:21 Hospital Stay Data Consultations 08/18/25 11:37 ED Decision to Admit Stat 08/18/25 13:35 Consult Blunger Routine 08/19/25 09:01 Consult Palliative Care Routine 08/20/25 16:24 Consult Orthopedic Spine Surgery Routine Diagnostic Imagining Performed 08/18/25 09:00 CT abd pelvis IV con only Stat CT angio chest PE protocol Stat CT angio head w con Stat CT angio neck with con Stat CT head/brain wo con Stat 08/19/25 13:55 MRI Brain [MR brain wo/w con] Urgent MRI Cervical [MR cervical spine wo/w con] Urgent MRI Spine [MR thoracic spine wo/w con] Urgent Pending Results Patient Have Any Pending Studies at Discharge: Yes (Legionella antigen, final blood cultures) Discharge Instructions Given to Patient (Per Discharging Provider) Please finish out 1 more day of antibiotics for your pneumonia with cefdinir and doxycycline with last dose on 08/23. Please finish out 1 more day of steroids with prednisone for your COPD exacerbation. You should have follow-up chest imaging in 4 to 6 weeks to ensure resolution of pneumonia. For your right wrist weakness, you had an MRI of the brain which was negative for stroke. This could be coming from the issues found on the MRI of your cervical spine. You were seen by the orthopedic spine surgeon who did not recommend surgery and recommended following up with neurology for the lesions seen in the C2-C3 region of the spinal cord as an outpatient. Please continue to wear the wrist brace and do passive movements of the wrist at rest. Your methadone dose was decreased to 10 mg 3 times a day by the palliative medicine provider due to you being overly sedated on arrival with a higher dose of methadone. Your Seroquel/quetiapine was discontinued due to your excessive sedation. You also had dehydration and the hydrochlorothiazide was discontinued. 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
[2025-08-22 13:23] VITALS: BP 165/92
[2025-08-22 15:13] VITALS: PULSE 83
== END 2025-08-22 20:00 | DRG 871 ==
LOC: ED 08:52 → 1E 14:06 → SUATTDRO 14:06 → 1E 15:12 → 2S 08-19 19:19
DX: R32 Unspecified urinary incontinence; J44.0 Chronic obstructive pulmonary disease with (acute) lower respiratory infection; N17.9 Acute kidney failure, unspecified; C7B.8 Other secondary neuroendocrine tumors; Z98.1 Arthrodesis status; G89.3 Neoplasm related pain (acute) (chronic); J96.02 Acute respiratory failure with hypercapnia; G93.41 Metabolic encephalopathy; D64.9 Anemia, unspecified; J18.9 Pneumonia, unspecified organism; Z92.3 Personal history of irradiation; Z88.5 Allergy status to narcotic agent; E87.20 Acidosis, unspecified; Y92.009 Unspecified place in unspecified non-institutional (private) residence as the place of occurrence of the external cause; G81.91 Hemiplegia, unspecified affecting right dominant side; I25.2 Old myocardial infarction; G25.81 Restless legs syndrome; Z79.891 Long term (current) use of opiate analgesic; E86.0 Dehydration; E78.5 Hyperlipidemia, unspecified; A41.9 Sepsis, unspecified organism; K21.9 Gastro-esophageal reflux disease without esophagitis; Z79.82 Long term (current) use of aspirin; G62.0 Drug-induced polyneuropathy; M54.12 Radiculopathy, cervical region; J96.01 Acute respiratory failure with hypoxia; T45.1X5A Adverse effect of antineoplastic and immunosuppressive drugs, initial encounter; J44.1 Chronic obstructive pulmonary disease with (acute) exacerbation; Z87.891 Personal history of nicotine dependence; F41.8 Other specified anxiety disorders; C7A.8 Other malignant neuroendocrine tumors; I10 Essential (primary) hypertension; M21.331 Wrist drop, right wrist